=== PATIENT | male | born 1955 | race Caucasian/White ===

== ENCOUNTER 2016-05-01 11:40 | Inpatient (IN) | payer OTHER ==
[~2016-05-01] VITALS: Ht 182.9 cm; Wt 63.6 kg
[~2016-05-01 11:40] MED LIST: AMOX875T PO
[2016-05-01 11:43] VITALS: BP 168/133; PULSE 88; RESP 18; TEMP 98.1; O2SAT 99
[2016-05-01] MEDS ORDERED: DEXAMETHASONE SOD PHOS 4 MG/ML VIAL IV PUSH ONE (12:15)
[2016-05-01] MEDS ORDERED: SODIUM CHLORID 0.9% 500 ML INJ 500 ML IV ONE (12:15)
[2016-05-01 12:31] LABS: AUTOMATED NEUTROPHIL # 5.6 TH/MM3 (1.8-7.7); BASOPHIL # 0.1 TH/MM3 (0-0.2); BASOPHIL % 1.1 % (0.0-2.0); EOSINOPHIL # 0.5 TH/MM3 (0-0.4); EOSINOPHIL % 5.9 % (0.0-4.0); HEMATOCRIT 42.1 % (39.0-51.0); HEMO FLAGS DIFF FINAL; LYMPH % 24.8 % (9.0-44.0); LYMPHOCYTE # 2.3 TH/MM3 (1.0-4.8); MEAN CELL VOLUME 90.7 FL (80.0-100.0); MEAN CORPUSCULAR HEMOGLOBIN 30.9 PG (27.0-34.0); MEAN CORPUSCULAR HGB CONC 34.1 % (32.0-36.0); MONO % 7.1 % (0.0-8.0); NEUT % 61.1 % (16.0-70.0); PLATELET COUNT 312 TH/MM3 (150-450); RED BLOOD COUNT 4.65 MIL/MM3 (4.50-5.90); RED CELL DISTRIBUTION WIDTH 12.4 % (11.6-17.2); WHITE BLOOD COUNT 9.1 TH/MM3 (4.0-11.0)
[2016-05-01 12:40] LABS: POTASSIUM 4.1 MEQ/L (3.5-5.1)
--- NOTE | 2016-05-01 12:41 | PD ---
HPI Chief Complaint: ENT Complaint Time Seen by Provider: 11:57 Travel History International Travel<30 days: No Contact w/Intl Traveler<30days: No Traveled to known affect area: No History of Present Illness HPI The patient is a 61-year-old male who presents emergency department for increasing hoarseness as well as pain of the right aspect of the neck that radiates to the right ear. The patient states his symptoms been ongoing for several months and have been progressing. The patient states he was evaluated in the emergency department in January was advised to follow-up with ear nose and throat physician, however, the patient has not followed up with ENT. The patient states he does not have insurance or money to follow-up with an ENT physician. The patient does smoke, was smoking one pack of cigarettes per day, now states he is smoking one third pack of cigarettes per day. He does note his hoarseness has progressively been worsening. The pain is located in the right aspect of the neck, sharp, feels like "stabbing in my ear ", and radiates to the ear. He denies any fever, chills, sweats, but does have mild pain with swallowing. He denies any significant weight loss. Symptoms are moderate, no known alleviating or exacerbating factors. PFSH Past Medical History Hx Anticoagulant Therapy: No COPD: Yes Diabetes: No Diminished Hearing: No Respiratory: Yes (COPD) Tetanus Vaccination: Unknown Influenza Vaccination: No Past Surgical History Tonsillectomy: Yes Social History Alcohol Use: No Tobacco Use: Yes (1 pack every 3 days) Substance Use: No Allergies-Medications (Allergen,Severity, Reaction): Coded Allergies: No Known Allergies (Unverified , 05/01/16) Reported Meds & Prescriptions Reported Meds & Active Scripts Active Review of Systems Except as stated in HPI: all other systems reviewed are Neg General / Constitutional: No: Fever, Weight Loss HENT: Positive: Sore Throat, Neck Pain, Earache, Other (as noted in history of present illness) Cardiovascular: No: Chest Pain or Discomfort Respiratory: No: Shortness of Breath Gastrointestinal: No: Nausea, Vomiting, Abdominal Pain Neurologic: No: Dizziness Physical Exam Narrative GENERAL: Awake, alert, pleasant 61-year-old male who appears his stated age and is in no acute respiratory distress. SKIN: Warm and dry. HEAD: Atraumatic. Normocephalic. EYES: No injection or drainage.. ENT: No nasal bleeding or discharge. Oropharynx reveals cobblestoning but no exudate. Uvula is midline. No visible or palpable mass under the tongue. No dentition noted. TMs are translucent. EACs are clear.. NECK: Trachea midline. No JVD. Right cervical lymph node mobile slightly tender. CARDIOVASCULAR: Regular rate and rhythm. No murmur appreciated. RESPIRATORY: No accessory muscle use. Clear to auscultation. Breath sounds equal bilaterally. GASTROINTESTINAL: Abdomen soft, non-tender, nondistended. No rebound tenderness. MUSCULOSKELETAL: No obvious deformities. No clubbing. No cyanosis. No edema. NEUROLOGICAL: Awake and alert. No obvious cranial nerve deficits. Motor grossly within normal limits. Normal speech. PSYCHIATRIC: Appropriate mood and affect; insight and judgment normal. Data Data Last Documented VS Vital Signs Date Time Temp Pulse Resp B/P Pulse Ox O2 Delivery O2 Flow Rate FiO2 05/01/16 14:18 70 20 133/83 100 Room Air 05/01/16 11:43 98.1 Orders Complete Blood Count With Diff (05/01/16 12:08) Basic Metabolic Panel (Bmp) (05/01/16 12:08) Ct Soft Tiss Neck W Iv Cont (05/01/16 ) Dexamethasone Inj (Decadron Inj) (05/01/16 12:15) Sodium Chlorid 0.9% 500 Ml Inj (Ns 500 M (05/01/16 12:15) Iohexol 350 Inj (Omnipaque 350 Inj) (05/01/16 14:05) Admit Order (Ed Use Only) (05/01/16 14:57) Consult Ent (05/01/16 ) Consult General Surgery (05/01/16 ) Labs Laboratory Tests Test 05/01/16 12:25 White Blood Count 9.1 TH/MM3 Red Blood Count 4.65 MIL/MM3 Hemoglobin 14.4 GM/DL Hematocrit 42.1 % Mean Corpuscular Volume 90.7 FL Mean Corpuscular Hemoglobin 30.9 PG Mean Corpuscular Hemoglobin 34.1 % Concent Red Cell Distribution Width 12.4 % Platelet Count 312 TH/MM3 Mean Platelet Volume 6.8 FL Neutrophils (%) (Auto) 61.1 % Lymphocytes (%) (Auto) 24.8 % Monocytes (%) (Auto) 7.1 % Eosinophils (%) (Auto) 5.9 % Basophils (%) (Auto) 1.1 % Neutrophils # (Auto) 5.6 TH/MM3 Lymphocytes # (Auto) 2.3 TH/MM3 Monocytes # (Auto) 0.6 TH/MM3 Eosinophils # (Auto) 0.5 TH/MM3 Basophils # (Auto) 0.1 TH/MM3 CBC Comment DIFF FINAL Differential Comment Sodium Level 139 MEQ/L Potassium Level 4.1 MEQ/L Chloride Level 104 MEQ/L Carbon Dioxide Level 29.3 MEQ/L Anion Gap 6 MEQ/L Blood Urea Nitrogen 9 MG/DL Creatinine 0.64 MG/DL Estimat Glomerular Filtration 128 ML/MIN Rate Random Glucose 97 MG/DL Calcium Level 8.5 MG/DL [facility] Medical Decision Making Medical Screen Exam Complete: Yes Emergency Medical Condition: Yes Medical Record Reviewed: Yes Interpretation(s) Laboratory Tests Test 05/01/16 12:25 White Blood Count 9.1 TH/MM3 Red Blood Count 4.65 MIL/MM3 Hemoglobin 14.4 GM/DL Hematocrit 42.1 % Mean Corpuscular Volume 90.7 FL Mean Corpuscular Hemoglobin 30.9 PG Mean Corpuscular Hemoglobin 34.1 % Concent Red Cell Distribution Width 12.4 % Platelet Count 312 TH/MM3 Mean Platelet Volume 6.8 FL Neutrophils (%) (Auto) 61.1 % Lymphocytes (%) (Auto) 24.8 % Monocytes (%) (Auto) 7.1 % Eosinophils (%) (Auto) 5.9 % Basophils (%) (Auto) 1.1 % Neutrophils # (Auto) 5.6 TH/MM3 Lymphocytes # (Auto) 2.3 TH/MM3 Monocytes # (Auto) 0.6 TH/MM3 Eosinophils # (Auto) 0.5 TH/MM3 Basophils # (Auto) 0.1 TH/MM3 CBC Comment DIFF FINAL Differential Comment Sodium Level 139 MEQ/L Potassium Level 4.1 MEQ/L Chloride Level 104 MEQ/L Carbon Dioxide Level 29.3 MEQ/L Anion Gap 6 MEQ/L Blood Urea Nitrogen 9 MG/DL Creatinine 0.64 MG/DL Estimat Glomerular Filtration 128 ML/MIN Rate Random Glucose 97 MG/DL Calcium Level 8.5 MG/DL CT soft tissue neck reveals large mass involving the larynx measured 3.5 x 2.0 cm causing significant compromise to the airway. No adenopathy observed. Malignancy is felt most likely. Severe emphysematous changes. Areas of probable scarring involving the right lung apex. This is nodular in appearance and one area that is partially visualized. Suggest CT of the thorax to further evaluate. Last Impressions Neck CT 05/01/16 0000 Signed Impressions: Service Date/Time: April 13:51 - CONCLUSION: 1. Large mass involving the larynx measuring 3.5 x 2.0 cm causing significant compromise to the airway. No adenopathy observed. Malignancy is felt most likely. 2. Severe emphysematous changes. 3. Areas of probable scarring involving the right lung apex. This is nodular in appearance in one area that is partially visualized. I suggest a CT of the thorax to further evaluate. Fabian Blackwood Jr., MD Differential Diagnosis Differential diagnosis includes pharyngitis, laryngitis, oropharyngeal cancer, oropharyngeal mass, lymphadenitis, eustachian tube dysfunction. Narrative Course IV was established, labs were drawn and sent, and the patient was placed on cardiac telemetry monitoring and continuous pulse oximetry monitoring. CT soft tissue of the neck with IV contrast was ordered. Labs are unremarkable. CT soft tissue neck reveals large mass involving the larynx measuring 3.5 x 2.0 cm causing significant compromise to the airway. No adenopathy observed. Malignancy is felt most likely. The mass measures 3.5 x 2.0 centimeters and its epicenter is to the right of midline just above the cords generating significant narrowing of the lumen of the airway. Therefore, the on-call ENT physician was paged. The patient will need admission, ENT consultation, and oncology consultation. I discussed the patient with Dr. Kilgore who reviewed the CT, states the patient will need a tracheostomy, therefore, recommends consult [facility] general surgery. CT does state there is airway compromise, the patient is sitting up right, no obvious stridor, however, we'll place in ICU until evaluated by surgery. The on-call general surgeon, Dr. Palafox, was paged. I discussed the patient with Dr. Palafox who requests that he be paged when the patient arrives to [facility], upon bed availability. Physician Communication Physician Communication The on-call ENT physician was paged at 2:30 PM. I discussed the patient with Dr. Carbajal who agrees with admission, the patient will be admitted to the ICU until evaluated by general surgery. Diagnosis Primary Impression: Laryngeal mass Admitting Information Admitting Physician Requests: Admit Condition: Stable Tor Frye MD May 01, 2016 12:41
[2016-05-01 12:42] LABS: BICARBONATE 29.3 MEQ/L (21.0-32.0)
[2016-05-01] MEDS ORDERED: IOHEXOL 350 MG/ML 10 ML VIAL (for RAD DIAG) IV ONE (14:05)
[2016-05-01 14:18] VITALS: BP 133/83; PULSE 70; RESP 20; O2SAT 100
--- NOTE | 2016-05-01 14:27 | RADHPO ---
EXAM DATE/TIME: 05/01/2016 13:51 [facility] COMPARISON: No previous studies available for comparison. INDICATIONS : Right throat pain and increased hoarseness over past 1 1/2 months. IV CONTRAST: 65 cc Omnipaque 350 (iohexol) IV RADIATION DOSE: 14.17 CTDIvol (mGy) MEDICAL HISTORY : Chronic obstructive pulmonary disease. SURGICAL HISTORY : Tonsillectomy. ENCOUNTER: Initial ACUITY: 1 month PAIN SCALE: 7/10 LOCATION: Right neck TECHNIQUE: Volumetric scanning of the neck was performed. Using automated exposure control and adjustment of th e mA and/or kV according to patient size, radiation dose was kept as low as reasonably achievable to obtain optimal diagnostic quality images. FINDINGS: A large heterogeneous mass is seen involving the larynx. This measures 3.5 x 2.0 cm and its epicenter is to the right of midline just above the cords. This generates significant narrowing of the lumen o f the airway. I appreciate no adenopathy. No destruction of the adjacent thyroid cartilage. Calcified plaque involving both carotid arteries. Pronounced emphysematous changes within the visualized lung apices. Areas of curvilinear density in some nodularity involving the right lung apex. CONCLUSION: 1. Large mass involving the larynx measuring 3.5 x 2.0 cm causing significant compromise to the airwa y. No adenopathy observed. Malignancy is felt most likely. 2. Severe emphysematous changes. 3. Areas of probable scarring involving the right lung apex. This is nodular in appearance in one are a that is partially visualized. I suggest a CT of the thorax to further evaluate. Fabian Blackwood Jr., MD on May 01, 2016 at 14:16 Board Certified Radiologist. This report was verified electronically.
[2016-05-01] MEDS ORDERED: NALOXONE HCL 0.4 MG/ML AMP IV PRN (15:15)
[2016-05-01] MEDS ORDERED: SODIUM CHLORIDE 0.9% FLUSH 5 ML FLUSH FLUSH PRN (15:15)
[2016-05-01] MEDS: D5-1/2 NS + KCL 20 MEQ INJ 1,000 ML IV SCH ×3 (15:55→21:50)
[2016-05-01] MEDS ORDERED: NICOTINE 21 MG/24 HR PATCH TD ONE (17:45)
[2016-05-01 18:25] VITALS: BP 146/87; PULSE 88; PULSE 89; RESP 19; TEMP 98.4; O2SAT 97
[2016-05-01 20:00] VITALS: BP 131/94; PULSE 81; RESP 15; TEMP 98.2; O2SAT 94
[2016-05-01] MEDS: SODIUM CHLORIDE 0.9% FLUSH 5 ML FLUSH FLUSH SCH (21:00)
[2016-05-01 22:00] VITALS: PULSE 85
[2016-05-02] VITALS (13 sets, daily range): BP systolic 123–144; BP diastolic 70–79; PULSE 70–94; RESP 15–18; TEMP 97.9–98.7; O2SAT 93–96
[2016-05-02 05:03] LABS: BICARBONATE 25.8 MEQ/L (21.0-32.0); POTASSIUM 4.1 MEQ/L (3.5-5.1)
[2016-05-02] MEDS: D5-1/2 NS + KCL 20 MEQ INJ 1,000 ML IV SCH ×2 (05:40→07:56)
[2016-05-02] MEDS: SODIUM CHLORIDE 0.9% FLUSH 5 ML FLUSH FLUSH SCH ×2 (07:57→22:57)
--- NOTE | 2016-05-02 08:24 | HHI.HP ---
[facility] Primary Care Physician No Primary Care Physician Admission Diagnosis laryngeal mass with airway compromise Diagnoses: (1) Laryngeal mass (2) COPD (chronic obstructive pulmonary disease) (3) Tobacco abuse Chief Complaint: Laryngeal mass with airway compromise Travel History International Travel<30 Days: No Contact w/Intl Traveler <30 Da: No Traveled to Known Affected Are: No History of Present Illness The patient is a 61-year-old male who presented to the emergency department yesterday with complaint of sore throat. He has been having some pain in his neck and throat since January. He was seen in the emergency department at the end of January and diagnosed with pharyngitis. He was treated with amoxicillin at that time and instructed to follow-up with ENT. It was about the end of January that he developed hoarseness, which has persisted. The patient states that he has continued to have pain on the side of his neck that eventually radiated up to his ear. Yesterday the pain had worsened to the point where it was intolerable and he went to the emergency department. He denies shortness of breath or chest pain. Denies fever, chills, night sweats. Throat pain is improved today. Review of Systems Constitutional: DENIES: Fever, Chills, Night Sweats Eyes: DENIES: Blurred vision, Vision loss Ears, nose, mouth, throat: COMPLAINS OF: Throat pain, Hoarseness, DENIES: Hearing loss Respiratory: COMPLAINS OF: Cough, Sputum production, DENIES: Wheezing, Shortness of breath Cardiovascular: DENIES: Chest pain, Palpitations, Dyspnea on Exertion, Lower Extremity Edema Gastrointestinal: DENIES: Abdominal pain, Constipation, Diarrhea, Nausea, Vomiting Genitourinary: DENIES: Urinary frequency, Urinary incontinence, Urgency, Hematuria, Dysuria, Nocturia Musculoskeletal: DENIES: Joint pain, Muscle aches Integumentary: DENIES: Pruritus, Rash Hematologic/lymphatic: DENIES: Bruising Neurologic: DENIES: Headache Past Family Social History Past Medical History COPD Tobacco abuse Past Surgical History Tonsillectomy Reported Medications None Allergies: Coded Allergies: No Known Allergies (Unverified , 05/01/16) Family History Mother had heart disease. Social History Smokes one pack of cigarettes every 3 days. Had smoked up to 2 packs per day for 40 years previously. Denies alcohol or illicit drug use. Physical Exam Vital Signs Vital Signs Date Time Temp Pulse Resp B/P Pulse Ox O2 Delivery O2 Flow Rate FiO2 05/02/16 08:00 84 05/02/16 08:00 98.7 80 16 136/73 96 05/02/16 08:00 93 100 05/02/16 06:00 70 05/02/16 04:00 78 05/02/16 04:00 98.0 78 15 134/79 95 05/02/16 02:00 83 05/02/16 00:00 76 05/02/16 00:00 98.3 80 15 131/79 94 05/01/16 22:00 85 05/01/16 20:00 81 05/01/16 20:00 98.2 81 15 131/94 94 05/01/16 18:25 98.4 89 19 146/87 97 05/01/16 18:25 97 Room Air 05/01/16 18:25 88 05/01/16 14:18 70 20 133/83 100 Room Air 05/01/16 12:01 20 05/01/16 11:43 98.1 88 18 168/133 99 Physical Exam GENERAL: Well-nourished, well-developed male in no acute distress. HEENT: Normocephalic, atraumatic. Pupils equal, round and reactive. Extraocular movements intact. No scleral icterus. No injection or drainage. Oropharynx is clear. Mucous membranes are moist. CARDIOVASCULAR: Regular rate and rhythm without murmurs, gallops, or rubs. RESPIRATORY: Clear to auscultation. No wheezes, rales, or rhonchi. Breathing is non-labored. GASTROINTESTINAL: Abdomen soft, non-tender, nondistended. EXTREMITIES: No lower extremity edema. No calf tenderness. SCDs. PSYCH: Alert and oriented x 3. Laboratory Laboratory Tests Test 05/01/16 05/01/16 05/02/16 12:25 19:50 03:34 White Blood Count 9.1 Red Blood Count 4.65 Hemoglobin 14.4 Hematocrit 42.1 Mean Corpuscular Volume 90.7 Mean Corpuscular Hemoglobin 30.9 Mean Corpuscular Hemoglobin 34.1 Concent Red Cell Distribution Width 12.4 Platelet Count 312 Mean Platelet Volume 6.8 Neutrophils (%) (Auto) 61.1 Lymphocytes (%) (Auto) 24.8 Monocytes (%) (Auto) 7.1 Eosinophils (%) (Auto) 5.9 Basophils (%) (Auto) 1.1 Neutrophils # (Auto) 5.6 Lymphocytes # (Auto) 2.3 Monocytes # (Auto) 0.6 Eosinophils # (Auto) 0.5 Basophils # (Auto) 0.1 CBC Comment DIFF FINAL Differential Comment Sodium Level 139 137 Potassium Level 4.1 4.1 Chloride Level 104 104 Carbon Dioxide Level 29.3 25.8 Anion Gap 6 7 Blood Urea Nitrogen 9 7 Creatinine 0.64 0.57 Estimat Glomerular Filtration 128 146 Rate Random Glucose 97 118 Calcium Level 8.5 8.8 Nasal Screen MRSA (PCR) NEGATIVE Result Diagram: 05/01/16 1225 05/02/16 0334 Imaging Last Impressions Neck CT 05/01/16 0000 Signed Impressions: Service Date/Time: April 13:51 - CONCLUSION: 1. Large mass involving the larynx measuring 3.5 x 2.0 cm causing significant compromise to the airway. No adenopathy observed. Malignancy is felt most likely. 2. Severe emphysematous changes. 3. Areas of probable scarring involving the right lung apex. This is nodular in appearance in one area that is partially visualized. I suggest a CT of the thorax to further evaluate. Fabian Blackwood Jr., MD Assessment and Plan Assessment and Plan 1. Laryngeal mass with airway compromise: Appreciate oncology recommendations. Discussed with Dr. Lofton. General surgery consultation is pending. The patient has been evaluated by ENT and reportedly a bedside laryngoscopy was done. Awaiting official documentation from ENT, but the report given from the nurse indicated that the airway compromise is less severe than initially thought based on imaging. ENT reportedly planning for biopsy of the mass on Thursday. 2. COPD: Continue supplemental oxygen. Bronchodilators as needed. 3. Tobacco abuse: Counseled to quit smoking. 4. DVT prophylaxis: JEREMY Romeo. Avoid chemical prophylaxis in anticipation of surgical intervention. Ivan Clayton MD May 02, 2016 08:24
--- NOTE | 2016-05-02 09:49 | MB ---
cc: DONAL HOOVER MD HEMATOLOGY/ONCOLOGY CONSULTATION NOTE DATE OF CONSULTATION 05/02/2016 REASON FOR CONSULTATION Large laryngeal mass noted on imaging studies. Findings are concerning for a primary malignancy of the larynx. CHIEF COMPLAINT Mr. Avila reports having had a 7-month history of progressive pain/soreness of the throat. He reports a two-month history of progressive difficulty breathing on inhalation. HISTORY OF PRESENT ILLNESS Mr. Fish is a 61-year-old male with a greater than 60 pack-year history of smoking. He reports smoking about a pack and half a day for the past 40 years. He also reports formerly being a heavy drinker. The patient reports noting pain along the right side of his Avinash's apple and throat starting in the summer of 2015. He reports presenting to various emergency departments in the city and was prescribed various courses of oral antibiotics which seemed to help transiently, but his symptoms would recur. Over the past few months, his voice has been increasingly hoarse. He denies having difficulty swallowing or hemoptysis or hematemesis. Additionally, the patient reports having lost some weight over the past six months, but nothing dramatic. He came into the emergency department last night with progressive symptoms and underwent a CT scan of the neck with intravenous contrast. Radiographic findings revealed a large mass measuring 3.5 x 2 cm causing significant compromise of the airway. No malignant lymphadenopathy was appreciated. Severe emphysematous changes were noted bilaterally. Te patient is presently awaiting ENT surgery evaluation and he is also awaiting evaluation by general surgery for possible tracheostomy creation. PAST MEDICAL HISTORY 1. Personal history of tobaccoism and alcoholism. 2. He denies any other formal medical diagnoses although he admits not seeing a primary care physician regularly. PAST SURGICAL HISTORY Denies any invasive surgical procedures. FAMILY HISTORY Parents are both . He denies oncologic diagnoses in the family. SOCIAL HISTORY He is single. He lives at home alone. He has no children of his own. He tells me he has multiple friends who are willing to help. 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 ALLERGIES NO KNOWN DRUG ALLERGIES. INPATIENT MEDICATIONS 1. DuoNebs one ampule every two hours as needed for difficulty breathing 2. Zofran 4 mg IV q6h 3. Morphine sulfate 2 mg IV q3h as needed for pain 4. IV fluids containing normal saline, potassium at 100 cc/hour. REVIEW OF SYSTEMS A 13-point review of systems is obtained, the pertinent positives have been summarized in past medical history. Below I am documenting some of the pertinent negatives and positives: Fatigue, denies weight loss, reports headaches, reports exertional dyspnea, reports pain in the throat. Denies cough or hemoptysis, denies chest pain, PND, orthopnea. Denies nausea, vomiting, diarrhea hematochezia, or melena. : No complaints. MUSCULOSKELETAL: No complaints. PHYSICAL EXAMINATION VITAL SIGNS: Temperature 98.7 degrees Fahrenheit, heart rate 80 beats minute, respiratory rate 16, blood pressure 136/73, O2 sats are 94% on room air. GENERAL PHYSICAL APPEARANCE: Mr. Avila is a middle-aged male, he is sitting up in bed. He appears to be in no acute distress and in particular is in no acute respiratory distress. He speaks to me in full sentences. HEENT: Head atraumatic, normocephalic, conjunctive are not pale, sclerae are anicteric, EOMI, PERRLA, oral exam no pharyngeal erythema. He has a 1 cm freely movable round level 2 right-sided cervical lymph node. No masses are appreciable. I do not auscultate stridor on direct auscultation of his larynx. NECK: No palpable cervical or supraclavicular lymphadenopathy. RESPIRATORY: Prolonged expiratory phase, no added breath sounds. CARDIOVASCULAR: Regular rate and rhythm, S1-S2. No obvious murmurs, rubs or gallops. ABDOMEN: Thin belly, soft and nontender, nondistended, no palpable organ enlargement. EXTREMITIES: Lower extremities, no pretibial edema. No calf tenderness. SURGICAL BRACE MAKER: No focal sensory or motor deficits appreciated. LABORATORY FINDINGS Blood work dated 05/01/2016: WBC count 9.1, hemoglobin 14.4 gm/dl, hematocrit 42%, platelet count 312, absolute neutrophil count 5.6. Chemistries: Sodium 137, potassium 4.1, chloride 104, bicarb 26, BUN 7, creatinine 0.75, EGFR 146, random glucose 118, calcium 8.8. IMAGING STUDIES 1. CT scan of the neck dated 05/01/2016: Large mass involving the larynx measuring 3.5 x 2 cm causing significant compromise to the airway. No adenopathy is observed. Malignancy is felt to be the most likely explanation. 2. Severe emphysematous changes. 3. Area of probable scarring involving the right lung apex. ASSESSMENT Ms. Avila is a 61-year-old male with an extensive past history of tobaccoism (greater than 60 pack-year history) and also a previous history of heavy alcohol consumption. The patient presents to the hospital with symptoms of the progressive pain in the larynx associated with hoarseness of the voice which has been ongoing for the past seven months or so. He presented to the emergency department and underwent imaging studies including a CT scan of the neck which revealed a mass involving the larynx. There was significant airway compromise appreciated. The patient has already been seen by our ENT surgeon's and flexible laryngoscopy was performed at bedside. An exophytic mass centered along the left false vocal cord was appreciated, there appear to be submucosal extension as well. The airway appear to be patent. 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 Unfortunately his airway is at risk for obstruction either now or once we start treatment which will include concurrent chemoradiotherapy. I think it would be most prudent to pursue a tracheostomy before we initiate treatment or in fact even try to biopsy his primary tumor in the larynx. I did speak to Dr. Kilgore who concurs with the assessment of preventive placement of a tracheostomy even though his airway at present seems to be patent. The patient will require a tissue diagnosis with a biopsy of the laryngeal mass. Dr. Kilgore is attempting to arrange this with our hospital's operating room. I will order staging scans including CT scan of the chest and abdomen to rule out metastatic disease. I will follow along with you. Thank you very much for this consult. MD FIFI Mcadams/ECTOR /9:08 AM /9:34 AM
--- NOTE | 2016-05-02 10:15 | MB ---
cc: DANIEL ORR MD DATE OF CONSULTATION: 05/02/2016 CHIEF COMPLAINT Severe hoarseness. HISTORY OF PRESENT ILLNESS This is a 61-year-old male who presented to the emergency room last night with worsening shortness of breath and hoarseness. The patient reports this has been going on for several months and has been slowly getting worse and has just continued to persist. He is now having some radiation up to his ear on the right side and causing significant pain. He feels that his breathing has improved since yesterday but he is severely hoarse and is having odynophagia but is not necessarily having dysphagia as he is asking me to eat currently. PAST MEDICAL HISTORY COPD as well as significant tobacco abuse history. PAST SURGICAL HISTORY Previous tonsillectomy. ALLERGIES He has no known drug allergies. SOCIAL HISTORY He smokes currently about 10 cigarettes a day, but has previously smoked more than two packs per day for more than 40 years. PHYSICAL EXAMINATION GENERAL: The patient is alert and oriented x3 in no acute distress. HEENT: Ears are clear. Nose is within normal limits. Oral cavity and oropharynx reveal moist mucosa. The tongue is without lesions and is freely mobile. A flexible laryngoscopy performed at bedside today shows the oropharynx without lesions or masses. The epiglottis shows no lesions or masses to it. The right side of the larynx shows an exophytic mass involving the arytenoids that looks more submucosal, the false vocal cord that looks more submucosa with the entire free edge of the right vocal cord obliterated with an exophytic mass. I am able to see the left vocal cord. It is without an obvious lesion. There is an airway. I am able to see his subglottis through the cords. He has currently an adequate airway. He has no stridor and no stertor. NECK: No palpable lymphadenopathy. HEART: Regular rate and rhythm. LUNGS: Clear to auscultation. IMAGING CT scan reviewed. His CT scan looks much more ominous than his actual exam. There is significant mass effect of a 3.5 cm mass causing compromise of the airway with no lymphadenopathy. 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 At this time he does have some airway compromise, however, it does not seem to be as ominous as it appears on the CAT scan. He is without stridor or stertor. I do believe for safety purposes for treatment options he is going to require a tracheostomy but I do not think he needs this emergently and can be performed by general surgery as an elective tracheostomy. I believe radiation will cause significant edema and he would require an emergent tracheostomy during treatment. At this time my recommendation is for him to have evaluation by general surgery for possible tracheostomy. We will plan Direct Laryngoscopy with biopsy for Thursday. I also think due to the fact that we are relatively sure this is a malignant process he will need a PET/CT scan. Due to his funding status he would benefit from some social work intervention to start helping him get some benefit set up as this will be a long course of treatment. Thank you for this consultation. Daniel Orr AT/BT /9:37 AM /10:02 AM MTDJaun
--- NOTE | 2016-05-02 16:07 | PD.CONS ---
HPI Service General surgery Consult Requested By Dr. Frye Reason for Consult Tracheostomy placement for airway compromise Primary Care Physician No Primary Care Physician History of Present Illness This is a 61-year-old male who came to the emergency department in [place] due to increased pain in his neck that radiated to his right ear. The patient noticed he had increased hoarseness in his voice at the beginning of February and was seen at the [facility] ED and diagnosed with laryngitis. The patient noticed a lump in his right neck about 6 weeks ago. He states he is always mildly short of breath but does not stop him from activities of daily living. The patient has not had any weight loss. The patient has a normal appetite. A Gen. surgery consult was requested for tracheostomy placement due to airway compromise. Review of Systems Constitutional: DENIES: Fatigue, Fever, Weight gain, Weight loss Endocrine: DENIES: Polydipsia, Polyuria, Polyphagia Eyes: DENIES: Eye inflammation, Eye pain Ears, nose, mouth, throat: COMPLAINS OF: Throat pain, Hoarseness, Ear Pain ( right), DENIES: Hearing loss, Vertigo Respiratory: DENIES: Apneas, Cough, Snoring Cardiovascular: DENIES: Chest pain, Palpitations, Syncope Gastrointestinal: DENIES: Constipation, Diarrhea Genitourinary: DENIES: Urinary incontinence, Urgency, Hematuria Musculoskeletal: DENIES: Joint pain Integumentary: DENIES: Abnormal pigmentation Hematologic/lymphatic: DENIES: Bruising Immunologic/allergic: DENIES: Eczema Neurologic: DENIES: Abnormal gait Psychiatric: DENIES: Mood changes, Depression Past Family Social History Past Medical History COPD Past Surgical History Tonsillectomy Reported Medications None Allergies: Coded Allergies: No Known Allergies (Unverified , 05/01/16) Active Ordered Medications Current Medications Medications (Trade) Dose Ordered Sig/Darryl Route Start Time Stop Time Status Last Admin (D5-1 NS + KCl 20 Meq Inj) 1,000 ml @ 100 mls/hr Q10H IV 05/01/16 15:10 05/02/16 05:40 (NS Flush) 2 ml UNSCH PRN FLUSH 05/01/16 15:15 (NS Flush) 2 ml BID FLUSH 05/01/16 21:00 (Zofran Inj) 4 mg Q6H PRN IVP 05/01/16 15:15 (Morphine Inj) 2 mg Q3H PRN IV 05/01/16 15:15 (Narcan Inj) 0.4 mg UNSCH PRN IV 05/01/16 15:15 Family History Noncontributory Social History Smoking-half a pack every 3 days EtOH-social; not a daily drinker Illicit drugs-denies Physical Exam Vital Signs Vital Signs Date Time Temp Pulse Resp B/P Pulse Ox O2 Delivery O2 Flow Rate FiO2 05/02/16 14:00 76 05/02/16 12:00 79 05/02/16 12:00 98.2 75 18 131/76 94 05/02/16 10:00 75 05/02/16 08:00 84 05/02/16 08:00 98.7 80 16 136/73 96 05/02/16 08:00 93 100 05/02/16 06:00 70 05/02/16 04:00 78 05/02/16 04:00 98.0 78 15 134/79 95 05/02/16 02:00 83 05/02/16 00:00 76 05/02/16 00:00 98.3 80 15 131/79 94 05/01/16 22:00 85 05/01/16 20:00 81 05/01/16 20:00 98.2 81 15 131/94 94 05/01/16 18:25 98.4 89 19 146/87 97 05/01/16 18:25 97 Room Air 05/01/16 18:25 88 Physical Exam GENERAL: Pleasant gentleman sitting up in bed on laptop computer. SKIN: Warm and dry. HEAD: Atraumatic. Normocephalic. EYES: Pupils equal and round. No scleral icterus. No injection or drainage. ENT: No nasal bleeding or discharge. Mucous membranes pink and moist. RIGHT sided neck mass. NECK: Trachea midline. CARDIOVASCULAR: Regular rate and rhythm. RESPIRATORY: No accessory muscle use. Clear to auscultation. Breath sounds diminished bilaterally. GASTROINTESTINAL: Abdomen soft, non-tender, nondistended. . MUSCULOSKELETAL: Extremities without clubbing, cyanosis, or edema. No obvious deformities. NEUROLOGICAL: Awake and alert. No obvious cranial nerve deficits. Motor grossly within normal limits. Five out of 5 muscle strength in the arms and legs. Speech is hoarse.. PSYCHIATRIC: Appropriate mood and affect; insight and judgment normal. Laboratory Laboratory Tests Test 05/01/16 05/02/16 19:50 03:34 Nasal Screen MRSA (PCR) NEGATIVE Sodium Level 137 Potassium Level 4.1 Chloride Level 104 Carbon Dioxide Level 25.8 Anion Gap 7 Blood Urea Nitrogen 7 Creatinine 0.57 Estimat Glomerular Filtration 146 Rate Random Glucose 118 Calcium Level 8.8 Result Diagram: 05/01/16 1225 05/02/16 0334 Imaging Last [address] 05/01/16 0000 Signed Impressions: Service Date/Time: April 13:51 - CONCLUSION: 1. Large mass involving the larynx measuring 3.5 x 2.0 cm causing significant compromise to the airway. No adenopathy observed. Malignancy is felt most likely. 2. Severe emphysematous changes. 3. Areas of probable scarring involving the right lung apex. This is nodular in appearance in one area that is partially visualized. I suggest a CT of the thorax to further evaluate. Fabian Blackwood Jr., MD Assessment and Plan Assessment and Plan This is a 61 year old male with a RIGHT sided neck mass in need of elective tracheostomy placement. -Patient on RA and oxygen saturations are 100%---no clinical evidence of impending airway compromise -ENT planning for scope and biopsy on Thursday -Regular diet -Plan to place trach in OR on Thursday after Dr. Kilgore Attending Note - Dr. Call Please see my dictation Discussed tracheostomy procedure with patient; risks, benefits, consequences, alternatives and convalescence discussed with him; he vocalizes understanding and agrees to proceed. Fenestrated trach may be placed in about 10-14 days so pt. may speak. The exam, history, and the medical decision-making described in the above note were completed with the assistance of the mid-level provider. I reviewed and agree with the findings presented. I attest that I had a [id number] encounter with the patient on the same day, and personally performed and documented my assessment and findings in the medical record. Ebonie Wolf May 02, 2016 16:07 Isael Call MD May 08, 2016 18:16
[2016-05-02] MEDS: MORPHINE SULFATE 4 MG/ML INJ IV PRN (20:07)
--- NOTE | 2016-05-02 22:13 | MB ---
cc: TIFFANIE EVANS M.D. DATE OF CONSULTATION: 05/02/2016 REASON FOR CONSULTATION Tracheostomy placement for patient to undergo chemotherapy. HISTORY OF PRESENT ILLNESS The patient is a 61-year-old male who was seen in the emergency department in [place] and had hoarseness in his voice at the beginning of February. The patient noted a lump in his neck about six weeks ago. REVIEW OF SYSTEMS Negative except for throat pain, hoarseness, right ear pain. Otherwise review of systems is negative. Please see Ebonie Luciano's consultation visit for further details. PHYSICAL EXAMINATION GENERAL: Reveals a male in no acute distress. VITAL SIGNS: BP 123/76, pulse 80, respirations 16, temperature 98.1. HEENT: Sclerae anicteric. The patient has hoarseness. NECK: Neck is supple without mass effect in the midline. I do not appreciate any significant adenopathy in the mid and lower neck. There is no jugular venous distension. CHEST: Chest is clear to auscultation. CARDIAC: Reveals regular rate and rhythm. ABDOMEN: Abdomen is soft. Pulses are intact. IMAGING Neck CT at on 05/01 demonstrated a large heterogeneous mass involving the larynx. LABORATORY VALUES Laboratory values demonstrate WBCs of 9.1, platelets are 312,000, BUN and creatinine are 7 and 0.57. ASSESSMENT Laryngeal mass with biopsy planned for May 05. PLAN Tracheostomy at the same time to allow for a secure airway. I have discussed the risks of surgery with the patient including but not limited to bleeding, infection, tracheostomy dislodgement, innominate artery bleeding with exsanguination, and the inability to speak until a Passy-Gladis valve is placed or a fenestrated trach is added. The patient vocalizes understanding of all of the above and is aware of the benefits, alternatives and convalescence and agrees to proceed. MD TARI Diaz/BJBunny /9:33 PM /10:03 PM
[2016-05-03] VITALS (14 sets, daily range): BP systolic 109–154; BP diastolic 67–84; PULSE 59–87; RESP 15–20; TEMP 98–98.4; O2SAT 93–98
[2016-05-03] MEDS: SODIUM CHLORIDE 0.9% FLUSH 5 ML FLUSH FLUSH SCH ×2 (08:17→21:00)
--- NOTE | 2016-05-03 09:04 | PD.ONC.PN ---
Subjective Subjective Remarks Afebrile overnight. Patient resting comfortably without complaint. He denies pain in neck. He ate dinner last night without difficulty. He is having BM. He denies difficulty breathing. Per nurse, no overnight events. Objective Data Date Time Temp Pulse Resp B/P Pulse Ox O2 Delivery O2 Flow Rate FiO2 05/03/16 08:00 87 05/03/16 08:00 98.0 87 18 109/67 98 05/03/16 06:00 59 05/03/16 04:00 98.0 62 20 115/76 93 05/03/16 04:00 62 05/03/16 02:00 70 05/03/16 00:00 98.0 70 16 124/77 95 05/03/16 00:00 70 05/02/16 22:00 73 05/02/16 20:08 93 21 05/02/16 20:00 97.9 94 18 144/70 95 05/02/16 20:00 94 05/02/16 18:00 82 05/02/16 16:00 77 05/02/16 16:00 98.1 80 16 123/76 96 05/02/16 14:00 76 05/02/16 12:00 79 05/02/16 12:00 98.2 75 18 131/76 94 05/02/16 10:00 75 05/03/16 05/03/16 05/03/16 07:00 15:00 23:00 Intake Total 120 ml Output Total 500 ml Balance -380 ml Result Diagram: 05/01/16 1225 05/02/16 0334 Imaging Studies Last Impressions Neck CT 05/01/16 0000 Signed Impressions: Service Date/Time: April 13:51 - CONCLUSION: 1. Large mass involving the larynx measuring 3.5 x 2.0 cm causing significant compromise to the airway. No adenopathy observed. Malignancy is felt most likely. 2. Severe emphysematous changes. 3. Areas of probable scarring involving the right lung apex. This is nodular in appearance in one area that is partially visualized. I suggest a CT of the thorax to further evaluate. Fabian Blackwood Jr., MD Administered Medications Medications (Trade) Dose Ordered Sig/Darryl Route PRN Reason Start Time Stop Time Status Last Admin Dose Admin Potassium Chloride/Dextrose/ Sod Cl (D5-1/2 NS + KCl 20 Meq Inj) 1,000 ml @ 100 mls/hr Q10H IV 05/01/16 15:10 05/02/16 05:40 IV Flush (NS Flush) 2 ml BID FLUSH 05/01/16 21:00 05/03/16 08:17 Morphine Sulfate (Morphine Inj) 2 mg Q3H PRN IV Pain 3-5; if unable to take PO 05/01/16 15:15 05/02/16 20:07 Objective Remarks GENERAL: Thin, middle aged male, sitting up in bed eating breakfast, watching TV SKIN: Warm and dry. skin is rough and leathery in appearance. +tobacco associated changes HEAD: Normocephalic. EYES: No injection or drainage. NECK: Supple, trachea midline. CARDIOVASCULAR: Regular rate and rhythm RESPIRATORY: Breath sounds equal bilaterally. No accessory muscle use. GASTROINTESTINAL: Abdomen soft, non-tender, nondistended. EXTREMITIES: No cyanosis NEUROLOGICAL: No obvious focal deficit. Awake, alert, and oriented x3. Assessment/Plan Assessment 61y/o male with laryngeal mass, suspected primary malignancy of the larynx. +7-month history of progressive pain/soreness of the throat. two-month history of progressive difficulty breathing on inhalation. +hoarse voice --no difficulty swallowing or hemoptysis or hematemesis. --flexible laryngoscopy at bedside showed exophytic mass centered along the left false vocal cord was appreciated w/ submucosal extension. Plan 1. CT C/A/P today. (for staging) 2. elective tracheostomy + direct laryngoscopy + biopsy Thursday Attending Statement The exam, history, and the medical decision-making described in the above note were completed with the assistance of the mid-level provider. I reviewed and agree with the findings presented. I attest that I had a [id number] encounter with the patient on the same day, and personally performed and documented my assessment and findings in the medical record. Denies dysphagia or SOB. Await elective tracheostomy and biopsy. 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 Radha Hilario May 03, 2016 09:04 Jerry Singer MD May 03, 2016 12:08
--- NOTE | 2016-05-03 11:30 | HHI.PR ---
Subjective Subjective Notes No problems with airway overnight. Going for CT chest this AM Objective Vitals/I&O Vital Signs Date Time Temp Pulse Resp B/P Pulse Ox O2 Delivery O2 Flow Rate FiO2 05/03/16 10:00 79 05/03/16 09:27 95 21 05/03/16 08:00 98.0 18 109/67 05/01/16 18:25 Room Air Radiology Last [address] 05/01/16 0000 Signed Impressions: Service Date/Time: April 13:51 - CONCLUSION: 1. Large mass involving the larynx measuring 3.5 x 2.0 cm causing significant compromise to the airway. No adenopathy observed. Malignancy is felt most likely. 2. Severe emphysematous changes. 3. Areas of probable scarring involving the right lung apex. This is nodular in appearance in one area that is partially visualized. I suggest a CT of the thorax to further evaluate. 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 Plan: Tracheostomy placement Thursday after biopsy completed by Dr. Kilgore. Permit signed. Isael Call MD May 03, 2016 11:29
[2016-05-03] MEDS ORDERED: IOHEXOL 350 MG/ML 10 ML VIAL (for RAD DIAG) IV ONE (11:40)
--- NOTE | 2016-05-03 11:53 | HHI.PR ---
Subjective Remarks Follow-up laryngeal mass. Patient has no complaints at this time. He is still having some pain in the right side of the neck radiating occasionally to the right ear, but states that it seems to be improved today. No dyspnea, dysphagia. Objective Vitals Vital Signs Date Time Temp Pulse Resp B/P Pulse Ox O2 Delivery O2 Flow Rate FiO2 05/03/16 10:00 79 05/03/16 09:27 95 21 05/03/16 08:00 87 05/03/16 08:00 98.0 87 18 109/67 98 05/03/16 06:00 59 05/03/16 04:00 98.0 62 20 115/76 93 05/03/16 04:00 62 05/03/16 02:00 70 05/03/16 00:00 98.0 70 16 124/77 95 05/03/16 00:00 70 05/02/16 22:00 73 05/02/16 20:08 93 21 05/02/16 20:00 97.9 94 18 144/70 95 05/02/16 20:00 94 05/02/16 18:00 82 05/02/16 16:00 77 05/02/16 16:00 98.1 80 16 123/76 96 05/02/16 14:00 76 05/02/16 12:00 79 05/02/16 12:00 98.2 75 18 131/76 94 I/O 05/02/16 05/02/16 05/02/16 05/03/16 05/03/16 05/03/16 07:00 15:00 23:00 07:00 15:00 23:00 Intake Total 1000 ml 1066 ml 480 ml 120 ml Output Total 600 ml 600 ml 0 ml 500 ml Balance 400 ml 466 ml 480 ml -380 ml Intake Oral 200 ml 480 ml 120 ml IV Total 1000 ml 866 ml 0 ml 0 ml Output Urine Total 600 ml 600 ml 500 ml Stool Total 0 ml 0 ml 0 ml # Voids 2 Result Diagram: 05/01/16 1225 05/02/16 0334 Imaging Last Impressions Neck CT 05/01/16 0000 Signed Impressions: Service Date/Time: April 13:51 - CONCLUSION: 1. Large mass involving the larynx measuring 3.5 x 2.0 cm causing significant compromise to the airway. No adenopathy observed. Malignancy is felt most likely. 2. Severe emphysematous changes. 3. Areas of probable scarring involving the right lung apex. This is nodular in appearance in one area that is partially visualized. I suggest a CT of the thorax to further evaluate. Fabian Blackwood Jr., MD Objective Remarks General: No acute distress. Heart: Regular rate and rhythm. No murmur. Lungs: Clear to auscultation bilaterally. No wheezes, rales, or rhonchi. Breathing is nonlabored. Abdomen: Soft, nontender, nondistended. Extremities: No lower extremity edema. No calf tenderness. Psych: Alert and oriented. Urinary Catheter: No Vascular Central Line Catheter: No A/P Problem List: (1) Laryngeal mass ICD Code: J38.7 Status: Acute (2) COPD (chronic obstructive pulmonary disease) ICD Code: J44.9 Status: Chronic (3) Tobacco abuse ICD Code: Z72.0 Status: Chronic Assessment and Plan 1. Laryngeal mass: Likely malignancy. Appreciate oncology, ENT, general surgery recommendations. ENT is planning for biopsy of the mass on Thursday. Elective tracheostomy will be done at that time as the patient will have significant swelling from chemotherapy and radiation therapies. 2. COPD: Continue supplemental oxygen. Bronchodilators as needed. 3. Tobacco abuse: Counseled to quit smoking. 4. DVT prophylaxis: JEREMY Romeo. Avoid chemical prophylaxis in anticipation of surgical intervention. Ivan Clayton MD May 03, 2016 11:53
--- NOTE | 2016-05-03 13:23 | RADRPT ---
EXAM DATE/TIME: 05/03/2016 11:33 [facility] COMPARISON: CT SOFT TISSUE NECK W CONTRAST, May 01, 2016, 13:51. INDICATIONS : Evaluate for metastaic disease. IV CONTRAST: 75 cc Omnipaque 350 (iohexol) IV ; Cumulative dose for multiple exams. RADIATION DOSE: 9.96 CTDIvol (mGy) ; Combined studies - Thorax/Abdomen/Pelvis MEDICAL HISTORY : Chronic obstructive pulmonary disease. Laryngeal mass. SURGICAL HISTORY : Tonsillectomy. ENCOUNTER: Initial ACUITY: 1 day PAIN SCALE: 0/10 LOCATION: Bilateral chest TECHNIQUE: Volumetric scanning of the chest was performed. Using automated exposure control and adjustment of t he mA and/or kV according to patient size, radiation dose was kept as low as reasonably achievable to obtain optimal diagnostic quality images. FINDINGS: Mildly nodular scarring seen of the right lung apex. There is marked hyperexpansion and moderate bull ous emphysematous changes. No infiltrate, effusion or pneumothorax. No mediastinal, hilar or axillary lymphadenopathy. Normal heart size. There is coronary artery calcification, especially the left main. CONCLUSION: 1. Emphysema and right upper lobe scarring. Scarring is mildly nodular but still most likely benign. Six-month followup noncontrast chest CT recommended. 2. No lymphadenopathy. 3. Coronary artery calcification. John Mcdonnell MD on May 03, 2016 at 13:19 Board Certified Radiologist. This report was verified electronically.
--- NOTE | 2016-05-03 13:26 | RADRPT ---
EXAM DATE/TIME: 05/03/2016 11:33 [facility] COMPARISON: CT THORAX W CONTRAST, May 03, 2016, 11:33. CT SOFT TISSUE NECK W CONTRAST, May 01, 2016, 1 3:51. INDICATIONS : Evaluate for metastaic disease. IV CONTRAST: 75 cc Omnipaque 350 (iohexol) IV ; Cumulative dose for multiple exams. ORAL CONTRAST: No oral contrast ingested. RADIATION DOSE: 9.96 CTDIvol (mGy) ; Combined studies - Thorax/Abdomen/Pelvis MEDICAL HISTORY : Chronic obstructive pulmonary disease. Laryngeal mass. SURGICAL HISTORY : Tonsillectomy. ENCOUNTER: Initial ACUITY: 1 day PAIN SCALE: 0/10 LOCATION: Bilateral abdomen. TECHNIQUE: Volumetric scanning of the abdomen and pelvis was performed. Using automated exposure control and ad justment of the mA and/or kV according to patient size, radiation dose was kept as low as reasonably achievable to obtain optimal diagnostic quality images. FINDINGS: LOWER LUNGS: The visualized lower lungs are clear. LIVER: Homogeneous density without lesion. There is no dilation of the biliary tree. No calcified gallston es. SPLEEN: Normal size without lesion. PANCREAS: Within normal limits. KIDNEYS: Normal in size and shape. There is no mass, stone or hydronephrosis. ADRENAL GLANDS: Within normal limits. VASCULAR: Extensive atherosclerotic plaque seen of the abdominal aorta. No aneurysm. BOWEL/MESENTERY: [place] colonic diverticulosis, especially left-sided. No acute inflammatory changes are seen. CT tavo earance of the stomach and small bowel within normal limits. ABDOMINAL WALL: Within normal limits. RETROPERITONEUM: There is no lymphadenopathy. BLADDER: No wall thickening or mass. REPRODUCTIVE: Within normal limits. INGUINAL: There is no lymphadenopathy or hernia. MUSCULOSKELETAL: No lytic or sclerotic lesion or other acute bony abnormality demonstrated. CONCLUSION: 1. No malignancy or other acute abnormality seen within the abdomen or pelvis. 2. Diverticulosis of the colon without acute inflammatory changes. 3. Atherosclerotic aorta. No aneurysm. John Mcdonnell MD on May 03, 2016 at 13:22 Board Certified Radiologist. This report was verified electronically.
[2016-05-03] MEDS: D5-1/2 NS + KCL 20 MEQ INJ 1,000 ML IV SCH (15:36)
[2016-05-03] MEDS: MORPHINE SULFATE 4 MG/ML INJ IV PRN (20:37)
[2016-05-04] VITALS (14 sets, daily range): BP systolic 119–131; BP diastolic 66–83; PULSE 60–79; RESP 16–28; TEMP 97.7–98.5; O2SAT 92–98
[2016-05-04] MEDS: D5-1/2 NS + KCL 20 MEQ INJ 1,000 ML IV SCH ×3 (03:10→23:10)
--- NOTE | 2016-05-04 08:40 | HHI.PR ---
Subjective Remarks Follow up laryngeal mass. Only complaint is mild right sided neck pain that occasionally radiates to the right ear. Denies chest pain, dyspnea, nausea, vomiting. Objective Vitals Vital Signs Date Time Temp Pulse Resp B/P Pulse Ox O2 Delivery O2 Flow Rate FiO2 05/04/16 06:00 65 05/04/16 04:00 97.7 60 28 131/71 98 05/04/16 04:00 60 05/04/16 02:00 63 05/04/16 00:00 67 05/04/16 00:00 98.4 67 24 119/66 92 05/03/16 22:00 66 05/03/16 20:55 17 05/03/16 20:18 96 21 05/03/16 20:00 79 05/03/16 20:00 98.4 79 15 121/77 94 05/03/16 18:00 79 05/03/16 16:00 72 05/03/16 16:00 98.0 72 19 116/75 94 05/03/16 14:00 77 05/03/16 12:00 79 05/03/16 12:00 98.1 79 16 154/84 94 05/03/16 10:00 79 05/03/16 09:27 95 21 I/O 05/03/16 05/03/16 05/03/16 05/04/16 05/04/16 05/04/16 07:00 15:00 23:00 07:00 15:00 23:00 Intake Total 120 ml 420 ml 240 ml Output Total 500 ml 1050 ml 726 ml 800 ml Balance -380 ml -630 ml -486 ml -800 ml Intake Oral 120 ml 420 ml 240 ml IV Total 0 ml 0 ml Output Urine Total 500 ml 1050 ml 725 ml 800 ml Stool Total 0 ml 0 ml 1 ml Result Diagram: 05/01/16 1225 05/02/16 0334 Imaging Last Impressions Chest CT 05/03/16 0000 Signed Impressions: Service Date/Time: Tuesday, May 03, 2016 11:33 - CONCLUSION: 1. Emphysema and right upper lobe scarring. Scarring is mildly nodular but still most likely benign. Six-month followup noncontrast chest CT recommended. 2. No lymphadenopathy. 3. Coronary artery calcification. John Mcdonnell MD Abdomen/Pelvis CT 05/03/16 0000 Signed Impressions: Service Date/Time: Tuesday, May 03, 2016 11:33 - CONCLUSION: 1. No malignancy or other acute abnormality seen within the abdomen or pelvis. 2. Diverticulosis of the colon without acute inflammatory changes. 3. Atherosclerotic aorta. No aneurysm. John Mcdonnell MD Neck CT 05/01/16 0000 Signed Impressions: Service Date/Time: April 13:51 - CONCLUSION: 1. Large mass involving the larynx measuring 3.5 x 2.0 cm causing significant compromise to the airway. No adenopathy observed. Malignancy is felt most likely. 2. Severe emphysematous changes. 3. Areas of probable scarring involving the right lung apex. This is nodular in appearance in one area that is partially visualized. I suggest a CT of the thorax to further evaluate. Fabian Blackwood Jr., MD Objective Remarks General: No acute distress. Heart: Regular rate and rhythm. No murmur. Lungs: Clear to auscultation bilaterally. No wheezes, rales, or rhonchi. Breathing is nonlabored. Abdomen: Soft, nontender, nondistended. Extremities: No lower extremity edema. No calf tenderness. Psych: Alert and oriented. Urinary Catheter: No Vascular Central Line Catheter: No A/P Problem List: (1) Laryngeal mass ICD Code: J38.7 Status: Acute (2) COPD (chronic obstructive pulmonary disease) ICD Code: J44.9 Status: Chronic (3) Tobacco abuse ICD Code: Z72.0 Status: Chronic Assessment and Plan 1. Laryngeal mass: Likely malignancy. Appreciate oncology, ENT, general surgery recommendations. ENT is planning for biopsy of the mass tomorrow. Elective tracheostomy will be done at that time as the patient will have significant swelling from chemotherapy and radiation therapies. 2. COPD: Continue supplemental oxygen. Bronchodilators as needed. 3. Tobacco abuse: Counseled to quit smoking. 4. DVT prophylaxis: JEREMY Romeo. Avoid chemical prophylaxis in anticipation of surgical intervention. Ivan Clayton MD May 04, 2016 08:40
[2016-05-04] MEDS: RESP: ALBUTEROL 2.5 MG/IPRATROPIUM 0.5 MG NEB (PRN) NEB (09:22)
[2016-05-04] MEDS: SODIUM CHLORIDE 0.9% FLUSH 5 ML FLUSH FLUSH SCH ×2 (09:49→21:00)
[2016-05-04] MEDS: MORPHINE SULFATE 4 MG/ML INJ IV PRN (19:47)
[2016-05-05] VITALS (14 sets, daily range): BP systolic 106–156; BP diastolic 62–82; PULSE 58–98; RESP 12–28; TEMP 98–98.6; O2SAT 92–99
[2016-05-05] MEDS ORDERED: LIDOCAINE HCL 2% 100 MG/5 ML SYRINGE ONE (06:39)
[2016-05-05] MEDS ORDERED: EPINEPHrine HCL (1:10,000) 1 MG/10 ML SYRINGE ONE (06:39)
[2016-05-05] MEDS ORDERED: ATROPINE SULFATE 1 MG/10 ML SYRINGE ONE (06:40)
[2016-05-05] MEDS ORDERED: KETAMINE HCL 500 MG/5 ML VIAL ONE (07:31)
[2016-05-05] MEDS ORDERED: FAMOTIDINE 20 MG/2 ML VIAL ONE (07:33)
[2016-05-05] MEDS ORDERED: DEXAMETHASONE SOD PHOS 4 MG/ML VIAL ONE (07:33)
--- NOTE | 2016-05-05 08:48 | HHI.PR ---
cc: Isael Call MD Immediate Post Op Note Procedure Date: May 05, 2016 Pre Op Diagnosis: Right larygneal mass Post Op Diagnosis: Right laryngeal mass Surgeon: Isael Call Outreach Counselor(s): Kamari Lopez MS3 Procedure: Percutaneous tracheostomy Complications: None Specimen(s) removed: None Estimated blood loss: Less than 5 ml Anesthesia: General Drains: None Patient to: PACU Patient Condition: Good Date/Time of Procedure: SEE SURGICAL CARE RECORD Isael Call MD May 05, 2016 08:48
[2016-05-05] MEDS: SODIUM CHLORIDE 0.9% FLUSH 5 ML FLUSH FLUSH SCH ×2 (09:00→21:00)
[2016-05-05] MEDS: D5-1/2 NS + KCL 20 MEQ INJ 1,000 ML IV SCH ×3 (09:04→19:49)
--- NOTE | 2016-05-05 09:29 | RADRPT ---
EXAM DATE/TIME: 05/05/2016 09:10 [facility] COMPARISON: CT THORAX W CONTRAST, May 03, 2016, 11:33. INDICATIONS : Post tracheostomy. MEDICAL HISTORY : Chronic obstructive pulmonary disease. Laryngeal mass. SURGICAL HISTORY : Tonsillectomy. ENCOUNTER: Initial ACUITY: 1 day PAIN SCORE: Non-responsive. LOCATION: Bilateral chest FINDINGS: Placement of a tracheostomy is appreciated without complication and no pneumothorax. Lung sebastian are clear and hyperinflated consistent with COPD and CONCLUSION: Tracheostomy well-positioned with no complication no pneumothorax. Francisco Javier Pink MD on May 05, 2016 at 9:27 Board Certified Radiologist. This report was verified electronically.
--- NOTE | 2016-05-05 09:33 | MP ---
cc: TIFFANIE EVANS M.D. DATE OF SURGERY 05/05/2016 PROCEDURE Tracheostomy. PREOPERATIVE DIAGNOSIS Right laryngeal mass with need for chemotherapy and radiation and compromised airway. POSTOPERATIVE DIAGNOSIS Right laryngeal mass with need for chemotherapy and radiation and compromised airway. ANESTHESIA General endotracheal. SURGEON MD Jakub ESTIMATED BLOOD LOSS Less than 5 mL. COMPLICATIONS None. DRAINS None. SPECIMEN None. PROCEDURE IN DETAIL The patient was taken to the operating room, placed on the operating table in supine position. After an adequate level of general endotracheal anesthesia was achieved, Dr. Kilgore entered the room and biopsy of the laryngeal mask was accomplished by Dr. Kilgore. Please see his dictation for this portion of this procedure. After Dr. Kilgore scrubbed out, the neck was prepped and draped. Second time-out was taken confirming the correct patient, site and procedure to be performed. The skin and subcutaneous tissue was infiltrated with local anesthetic and a small transverse incision was made two fingerbreadths above the sternal notch. The Anesthesia Team then loosened the tape and withdrew the endotracheal tube to 18 cm. The undersigned was then able to pass an angiocatheter into the trachea with good air return. The needle was withdrawn and the angiocatheter advanced slightly. The guidewire was then passed through the angiocatheter eliciting a cough from the patient. The angiocatheter was removed and a tracheal punch was passed over the guidewire. The tracheal punch was removed and a white catheter guide and Blue Rhino was passed over the guidewire. The Blue Rhino was then removed leaving the white catheter guide behind as well as the guidewire. A #8 percutaneous tracheostomy with a 28-[place] tracheostomy guide was then passed over the white catheter guide and green guidewire. This entered the trachea easily. The tracheostomy guide, the white catheter guide and the green guidewire were all then removed. The balloon was inflated. The obturator was then placed into the tracheostomy tube and the circuit switched over to the tracheostomy. At this point the patient was oxygenated and then the circuit was removed temporarily and the trachea suctioned. Irrigation was accomplished with saline as well and slightly bloody, thick secretions were easily removed. When this had been accomplished, the obturator was re-inserted and the circuit reapplied. Better tidal volumes were obtained in easier ventilation was obtained as well. The patient's saturations always remained in the high 90s throughout the entire procedure. Four 2-0 Prolene sutures were then used to secure the tracheostomy in place. A tracheostomy dressing was placed underneath the tracheostomy and a Velcro collar was applied around the back of the neck to secure the tracheostomy tube. The patient was taken back to the recovery room in stable condition. Sponge and needle counts were reported to be correct. The patient tolerated the procedure well. MD TARI Diaz/SSB /8:55 AM /9:28 AM
--- NOTE | 2016-05-05 09:45 | MP ---
cc: TIFFANIE CALL M.D.,DANIEL Jones MD DATE OF SURGERY 05/05/2016 PREOPERATIVE DIAGNOSIS Laryngeal mass. POSTOPERATIVE DIAGNOSIS Laryngeal mass. PROCEDURE PERFORMED Direct laryngoscopy with biopsy. ANESTHESIA General tracheal anesthesia was used. COMPLICATIONS None. SPECIMEN OBTAINED 1. False vocal fold biopsy. 2. True vocal fold biopsies. INDICATION FOR PROCEDURE This is a 61-year-old male with slowly worsening shortness of breath and hoarseness over the last three months. The patient was evaluated by CT scan and noted to have a significant laryngeal mass as well as the patient was noted to have large right-sided laryngeal mass on flexible scope at the bedside with deemed surgical intervention. As well, the patient was going to benefit from a tracheostomy which was going to be performed by Dr. Call at the time of the surgery. The risks and benefits were described in detail for the direct laryngoscopy. The patient agreed and wished to proceed with the procedure as planned. DESCRIPTION OF OPERATIVE COURSE After informed consent was obtained, the patient was taken to the operating room, placed supine on the operating table. General endotracheal anesthesia was initiated following which the head of bed was turned approximately 90 degrees. The patient was then prepped and draped in standard surgical fashion. Once this was completed, a Kleinsasser laryngoscope was inserted into the patient's oral cavity. The oral cavity was investigated. The patient was noted to be edentulous. The oropharynx was investigated. There was no mass, lesion or ulceration noted. The epiglottis was evaluated; there was no mass, lesion or ulceration noted. The scope was inserted into the larynx. The endolarynx was brought into view. The right false vocal fold, right arytenoid, right ventricle, right false cord was and true vocal cord was all obliterated with a large exophytic mass. There was no lesion noted to the left false cord or the left true vocal cord. At this time multiple biopsies were taken of the right-sided laryngeal mass of both the right false cord as well as the right true cord and sent for permanent section pathology. The scope was advanced into the piriform sinus. There was no lesion noted in the piriform sinus. However, the mass did have a submucosal mass effect to it on the right side. Once this was completed, Dr. Call performed his portion of the procedure for a tracheostomy. Please see his operative note for the remainder of the surgical intervention. Daniel RONQUILLO/FEDERICO /9:02 AM /9:34 AM
--- NOTE | 2016-05-05 11:48 | HHI.PR ---
Subjective Remarks Follow up laryngeal mass. S/P biopsy and trach placement today. Doing well. Reports discomfort at trach site. Otherwise no complaints at this time. Objective Vitals Vital Signs Date Time Temp Pulse Resp B/P Pulse Ox O2 Delivery O2 Flow Rate FiO2 05/05/16 10:00 89 05/05/16 09:52 97 T-piece 40 05/05/16 09:46 98.6 92 16 128/79 99 05/05/16 09:43 92 05/05/16 09:20 82 16 97 T-Piece 40 05/05/16 09:15 97.8 80 16 152/85 97 T-Piece 40 05/05/16 09:00 78 16 156/89 96 T-Piece 40 05/05/16 08:50 97.5 71 18 169/88 95 T-Piece 40 05/05/16 06:00 80 05/05/16 04:00 72 05/05/16 04:00 98.1 72 24 122/77 93 05/05/16 02:00 70 05/05/16 00:00 98.0 63 19 106/62 95 05/05/16 00:00 63 05/04/16 22:00 70 05/04/16 20:18 94 21 05/04/16 20:00 98.3 77 20 122/83 94 05/04/16 20:00 77 05/04/16 19:52 17 05/04/16 18:00 74 05/04/16 16:00 98.5 70 18 128/82 96 05/04/16 16:00 70 05/04/16 14:00 73 05/04/16 12:00 79 05/04/16 12:00 98.2 79 19 127/79 94 I/O 05/04/16 05/04/16 05/04/16 05/05/16 05/05/16 05/05/16 07:00 15:00 23:00 07:00 15:00 23:00 Intake Total 720 ml 360 ml 300 ml Output Total 800 ml 1150 ml 875 ml 650 ml 25 ml Balance -800 ml -430 ml -515 ml -650 ml 275 ml Intake Oral 720 ml 360 ml IV Total 50 ml Other 250 ml Output Urine Total 800 ml 1150 ml 875 ml 650 ml Stool Total 0 ml 0 ml 0 ml Estimated Blood Loss 25 ml # Voids 0 Result Diagram: 05/01/16 1225 05/02/16 0334 Imaging Last Impressions Chest X-Ray 05/05/16 0000 Signed Impressions: Service Date/Time: Thursday, May 05, 2016 09:10 - CONCLUSION: Tracheostomy well-positioned with no complication no pneumothorax. Francisco Javier Pink MD Chest CT 05/03/16 0000 Signed Impressions: Service Date/Time: Tuesday, May 03, 2016 11:33 - CONCLUSION: 1. Emphysema and right upper lobe scarring. Scarring is mildly nodular but still most likely benign. Six-month followup noncontrast chest CT recommended. 2. No lymphadenopathy. 3. Coronary artery calcification. John Mcdonnell MD Abdomen/Pelvis CT 05/03/16 0000 Signed Impressions: Service Date/Time: Tuesday, May 03, 2016 11:33 - CONCLUSION: 1. No malignancy or other acute abnormality seen within the abdomen or pelvis. 2. Diverticulosis of the colon without acute inflammatory changes. 3. Atherosclerotic aorta. No aneurysm. John Mcdonnell MD Neck CT 05/01/16 0000 Signed Impressions: Service Date/Time: April 13:51 - CONCLUSION: 1. Large mass involving the larynx measuring 3.5 x 2.0 cm causing significant compromise to the airway. No adenopathy observed. Malignancy is felt most likely. 2. Severe emphysematous changes. 3. Areas of probable scarring involving the right lung apex. This is nodular in appearance in one area that is partially visualized. I suggest a CT of the thorax to further evaluate. Fabian Blackwood Jr., MD Objective Remarks General: No acute distress. Trach. Heart: Regular rate and rhythm. No murmur. Lungs: Clear to auscultation bilaterally. No wheezes, rales, or rhonchi. Breathing is nonlabored. Abdomen: Soft, nontender, nondistended. Extremities: No lower extremity edema. No calf tenderness. Psych: Alert and oriented. Urinary Catheter: No Vascular Central Line Catheter: No A/P Problem List: (1) Laryngeal mass ICD Code: J38.7 Status: Acute (2) COPD (chronic obstructive pulmonary disease) ICD Code: J44.9 Status: Chronic (3) Tobacco abuse ICD Code: Z72.0 Status: Chronic Assessment and Plan 1. Laryngeal mass: Likely malignancy. Appreciate oncology, ENT, general surgery recommendations. S/P biopsy of the mass. S/P tracheostomy. Await pathology. 2. COPD: Continue supplemental oxygen. Bronchodilators as needed. 3. Tobacco abuse: Counseled to quit smoking. 4. DVT prophylaxis: JEREMY Romeo. Avoid chemical prophylaxis in anticipation of surgical intervention. Ivan Clayton MD May 05, 2016 11:48
[2016-05-05] MEDS ORDERED: PROPOFOL 200 MG/20 ML AMP IV ONE (12:00)
[2016-05-05] MEDS ORDERED: ePHEDrine/NS 25 MG/5 ML SYR IV ONE (12:00)
[2016-05-05] MEDS ORDERED: LACTATED RINGER'S 1000 ML INJ 1,000 ML IV ONE (12:00)
[2016-05-05] MEDS ORDERED: PHENYLEPH/NS 1000 MCG/10 ML SYR IV ONE (12:00)
[2016-05-05] MEDS ORDERED: ONDANSETRON HCL 4 MG/2 ML VIAL IV PUSH ONE (12:00)
--- NOTE | 2016-05-05 14:20 | EKG ---
Date Performed: 05/05/2016 Time Performed: 04:02:18 PTAGE: 61 years EKG: Sinus rhythm . Left axis deviation Abnormal ECG PREVIOUS TRACING : 10/14/2011 13.55 DOCTOR: Sarthak Bhardwaj Interpretating Date/Time 05/05/2016 14:17:07
[2016-05-05] MEDS: MORPHINE SULFATE 4 MG/ML INJ IV PRN (19:49)
[2016-05-06] VITALS (16 sets, daily range): BP systolic 127–151; BP diastolic 77–95; PULSE 64–86; RESP 16–24; TEMP 97–100.1; O2SAT 97–100
[2016-05-06] MEDS: D5-1/2 NS + KCL 20 MEQ INJ 1,000 ML IV SCH ×3 (05:58→20:02)
[2016-05-06] MEDS: ONDANSETRON HCL 4 MG/2 ML VIAL IVP PRN ×3 (07:27→20:02)
--- NOTE | 2016-05-06 08:22 | PD.ONC.PN ---
Subjective Subjective Remarks Mr. Avila reports pain at the site of the tracheostomy. He had vomiting this morning. He otherwise denies complaints specifically difficulty breathing. On 05/05/2016 he underwent tracheostomy creation and biopsy of the laryngeal mass. Over the weekend he underwent staging studies with CT scans of the chest and abdomen; there was no definite evidence of metastatic disease. Objective Data Date Time Temp Pulse Resp B/P Pulse Ox O2 Delivery O2 Flow Rate FiO2 05/06/16 08:05 75 24 130/78 100 05/06/16 07:45 100 T-piece 5.00 28 05/06/16 06:00 80 05/06/16 04:00 68 05/06/16 04:00 99.1 68 20 147/79 100 05/06/16 02:00 64 05/06/16 00:38 98 T-piece 6.00 35 05/06/16 00:00 86 05/06/16 00:00 99.2 86 21 151/95 100 05/05/16 22:00 78 05/05/16 20:00 76 05/05/16 20:00 98.6 76 12 138/82 99 05/05/16 18:00 83 05/05/16 16:00 62 05/05/16 16:00 98.5 98 28 156/72 92 05/05/16 14:00 79 05/05/16 12:00 98.5 58 23 120/77 99 05/05/16 12:00 72 05/05/16 10:00 89 05/05/16 09:52 97 T-piece 40 05/05/16 09:46 98.6 92 16 128/79 99 05/05/16 09:43 92 05/05/16 09:20 82 16 97 T-Piece 40 05/05/16 09:15 97.8 80 16 152/85 97 T-Piece 40 05/05/16 09:00 78 16 156/89 96 T-Piece 40 05/05/16 08:50 97.5 71 18 169/88 95 T-Piece 40 Result Diagram: 05/02/16 0334 Administered Medications Medications (Trade) Dose Ordered Sig/Darryl Route PRN Reason Start Time Stop Time Status Last Admin Dose Admin Potassium Chloride/Dextrose/ Sod Cl (D5-1/2 NS + KCl 20 Meq Inj) 1,000 ml @ 100 mls/hr Q10H IV 05/01/16 15:10 05/06/16 05:58 IV Flush (NS Flush) 2 ml BID FLUSH 05/01/16 21:00 05/04/16 21:00 Ondansetron HCl (Zofran Inj) 4 mg Q6H PRN IVP NAUSEA OR VOMITING 05/01/16 15:15 05/06/16 07:27 Morphine Sulfate (Morphine Inj) 2 mg Q3H PRN IV Pain 3-5; if unable to take PO 05/01/16 15:15 05/05/16 19:49 Objective Remarks GENERAL: Middle-aged male, sitting up in bed, interval placement of tracheostomy. SKIN: Warm and dry. HEAD: Normocephalic. EYES: No scleral icterus. No injection or drainage. NECK: Supple, trachea midline. No JVD or lymphadenopathy. LYMPHATIC: No adenopathy. CARDIOVASCULAR: Regular rate and rhythm without murmurs. RESPIRATORY: Prolonged expiratory phase, scattered rhonchi. GASTROINTESTINAL: Abdomen soft, non-tender, nondistended. EXTREMITIES: No cyanosis, or edema. MUSCULOSKELETAL: Adequate muscle tone. NEUROLOGICAL: No obvious focal deficit. Awake, alert, and oriented x3. PSYCHIATRIC: Appropriate mood and affect; insight and judgment normal. Assessment/Plan Assessment 61y/o male with laryngeal mass, suspected primary malignancy of the larynx. +7-month history of progressive pain/soreness of the throat. two-month history of progressive difficulty breathing on inhalation. +hoarse voice --no difficulty swallowing or hemoptysis or hematemesis. --flexible laryngoscopy at bedside showed exophytic mass centered along the left false vocal cord was appreciated w/ submucosal extension. Plan 1. 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 Await biopsy results. I have consulted radiation oncology to begin planning for concurrent chemoradiotherapy. This will be considered as first-line treatment to allow him organ sparing/organ preserving initial management. The patient has already undergone full mouth tooth extraction, so we do not have to await a dental evaluation. I've also requested a feeding tube to be placed. Given the patient's lack of insurance and anticipated difficulty with placement (now that he has a tracheostomy and will be getting a feeding tube), I anticipate this patient will be receiving inpatient systemic chemotherapy as well as radiation. From past experience, I have encountered prolonged delays in initiating outpatient systemic therapy and radiation therapy in individuals such as this who are under insured. The oncology service will continue following with you. Urban Lofton MD May 06, 2016 08:22
[2016-05-06] MEDS ORDERED: ceFAZolin 2 GM PREMIX 50 ML IV SCH (09:30)
[2016-05-06 10:26] LABS: APTT (PATIENT) 26.6 SEC (24.3-30.1); PROTHROMBIN TIME - PATIENT 10.7 SEC (9.8-11.6)
--- NOTE | 2016-05-06 10:26 | HHI.PR ---
Subjective Subjective Notes Resting in bed No issues overnight Objective Vitals/I&O Vital Signs Date Time Temp Pulse Resp B/P Pulse Ox O2 Delivery O2 Flow Rate FiO2 05/06/16 08:05 98.6 75 24 130/78 100 05/06/16 07:45 T-piece 5.00 28 Radiology Last [address] 05/01/16 0000 Signed Impressions: Service Date/Time: April 13:51 - CONCLUSION: 1. Large mass involving the larynx measuring 3.5 x 2.0 cm causing significant compromise to the airway. No adenopathy observed. Malignancy is felt most likely. 2. Severe emphysematous changes. 3. Areas of probable scarring involving the right lung apex. This is nodular in appearance in one area that is partially visualized. I suggest a CT of the thorax to further evaluate. Fabian Blackwood Jr., MD Cardiovascular: Regular Lungs: Clear Abdomen: Non-distended, Non-tender Extremities: No edema Narrative Exam trach in place without complications ----minimal drainage on dressing A/P Assessment and Plan 61 year old male with laryngeal mass in need for tracheostomy placement -Trach in good position without complications -Pain controlled -Patient scheduled for PEG placement today -Tolerating regular diet -Wean oxygen off as tolerated -Discussed with FLAQUITA Lin at bedside -GS will sign off; please call with questions Attending Note - Dr. Call Trach site with no new drainage. ST to see patient. OK for preop diet; no reason to limit patient The exam, history, and the medical decision-making described in the above note were completed with the assistance of the mid-level provider. I reviewed and agree with the findings presented. I attest that I had a [id number] encounter with the patient on the same day, and personally performed and documented my assessment and findings in the medical record. Ebonie Wolf May 06, 2016 10:26 Isael Call MD May 08, 2016 18:25
--- NOTE | 2016-05-06 11:58 | HHI.PR ---
Subjective Remarks Follow up laryngeal mass, nausea/vomiting. Patient reporting some pain at trach site. Has had a lot of vomiting per nursing. He denies nausea currently. Miguel is helping. Going for PEG tube placement today. Objective Vitals Vital Signs Date Time Temp Pulse Resp B/P Pulse Ox O2 Delivery O2 Flow Rate FiO2 05/06/16 08:05 98.6 75 24 130/78 100 05/06/16 07:45 100 T-piece 5.00 28 05/06/16 06:00 80 05/06/16 04:00 68 05/06/16 04:00 99.1 68 20 147/79 100 05/06/16 02:00 64 05/06/16 00:38 98 T-piece 6.00 35 05/06/16 00:00 86 05/06/16 00:00 99.2 86 21 151/95 100 05/05/16 22:00 78 05/05/16 20:00 76 05/05/16 20:00 98.6 76 12 138/82 99 05/05/16 18:00 83 05/05/16 16:00 62 05/05/16 16:00 98.5 98 28 156/72 92 05/05/16 14:00 79 05/05/16 12:00 98.5 58 23 120/77 99 05/05/16 12:00 72 I/O 05/05/16 05/05/16 05/05/16 05/06/16 05/06/16 05/06/16 07:00 15:00 23:00 07:00 15:00 23:00 Intake Total 701 ml 868 ml 754 ml Output Total 650 ml 400 ml 900 ml 552 ml Balance -650 ml 301 ml -32 ml 202 ml IV Total 451 ml 868 ml 754 ml Other 250 ml Output Urine Total 650 ml 375 ml 900 ml 550 ml Stool Total 0 ml 0 ml 0 ml 0 ml Emesis 2 ml Estimated Blood Loss 25 ml # Voids 0 Result Diagram: 05/02/16 0334 Imaging Last Impressions Chest X-Ray 05/05/16 0000 Signed Impressions: Service Date/Time: Thursday, May 05, 2016 09:10 - CONCLUSION: Tracheostomy well-positioned with no complication no pneumothorax. Francisco Javier Pink MD Chest CT 05/03/16 0000 Signed Impressions: Service Date/Time: Tuesday, May 03, 2016 11:33 - CONCLUSION: 1. Emphysema and right upper lobe scarring. Scarring is mildly nodular but still most likely benign. Six-month followup noncontrast chest CT recommended. 2. No lymphadenopathy. 3. Coronary artery calcification. John Mcdonnell MD Abdomen/Pelvis CT 05/03/16 0000 Signed Impressions: Service Date/Time: Tuesday, May 03, 2016 11:33 - CONCLUSION: 1. No malignancy or other acute abnormality seen within the abdomen or pelvis. 2. Diverticulosis of the colon without acute inflammatory changes. 3. Atherosclerotic aorta. No aneurysm. John Mcdonnell MD Neck CT 05/01/16 0000 Signed Impressions: Service Date/Time: April 13:51 - CONCLUSION: 1. Large mass involving the larynx measuring 3.5 x 2.0 cm causing significant compromise to the airway. No adenopathy observed. Malignancy is felt most likely. 2. Severe emphysematous changes. 3. Areas of probable scarring involving the right lung apex. This is nodular in appearance in one area that is partially visualized. I suggest a CT of the thorax to further evaluate. Fabian Blackwood Jr., MD Objective Remarks General: No acute distress. Trach. Heart: Regular rate and rhythm. No murmur. Lungs: Clear to auscultation bilaterally. No wheezes, rales, or rhonchi. Breathing is nonlabored. Abdomen: Soft, nontender, nondistended. Extremities: No lower extremity edema. No calf tenderness. Psych: Alert and oriented. Procedures 05/05/16 Laryngeal mass biopsy 05/05/16 tracheostomy Urinary Catheter: No Vascular Central Line Catheter: No A/P Problem List: (1) Laryngeal mass ICD Code: J38.7 Status: Acute (2) COPD (chronic obstructive pulmonary disease) ICD Code: J44.9 Status: Chronic (3) Tobacco abuse ICD Code: Z72.0 Status: Chronic (4) Nausea & vomiting ICD Code: R11.2 Status: Acute Assessment and Plan 1. Laryngeal mass: Likely malignancy. Appreciate oncology, ENT, general surgery recommendations. S/P biopsy of the mass. S/P tracheostomy. Await pathology. Radiation oncology consulted for concurrent chemo/radiation. PEG tube placement today. 2. COPD: Continue supplemental oxygen. Bronchodilators as needed. 3. Tobacco abuse: Counseled to quit smoking. 4. DVT prophylaxis: JEREMY Romeo. Avoid chemical prophylaxis in anticipation of surgical intervention. 5. Nausea/vomiting: Continue Zofran as needed. Discharge Planning Transfer to [address] [place] [address]. Ivan Clayton MD May 06, 2016 11:58
[2016-05-06] MEDS ORDERED: MIDAZOLAM HCL 5 MG/5 ML VIAL ONE (12:28)
[2016-05-06] MEDS ORDERED: GLUCAGON 1 MG/ML VIAL ONE (12:29)
[2016-05-06] MEDS ORDERED: fentaNYL CITRATE 250 MCG/5 ML AMP ONE (12:29)
[2016-05-06] MEDS ORDERED: IOHEXOL 350 MG/ML 50 ML BTL (for RAD DIAG) G-TUBE ONE (13:45)
--- NOTE | 2016-05-06 14:58 | PD.RAD ---
Post Procedure Progress Note Pre Procedure Diagnosis: (1) Laryngeal mass Post Procedure Diagnosis: (1) Laryngeal mass Procedure Date: May 06, 2016 Supervising Radiologist: Fabian Blackwood JR Proceduralist/Assist: Sunitha Florian RT(R), RT Gale(R) Anesthesia: Conscious Sedation Plan of Activity Patient to Unit: ROPU Patient Condition: Good See PACS Report for procedural detail/treatment Feeding Tube Gastrostomy Placement [place]arian: 18 Findings: Placed gastrostomy tube without difficulty. Plan T fasteners should fall off in 3 weeks Jr. Jaison,Fabian Coy MD May 06, 2016 14:58
[2016-05-06] MEDS: SODIUM CHLORIDE 0.9% FLUSH 5 ML FLUSH FLUSH SCH ×2 (14:59→20:02)
--- NOTE | 2016-05-06 16:11 | RADRPT ---
EXAM DATE/TIME: 05/06/2016 13:15 [facility] COMPARISON: No previous studies available for comparison. INDICATIONS : Patient with laryngeal mass in need of gastrostomy tube placement. MEDICAL HISTORY : COPD Hx of kidney stones SURGICAL HISTORY : Tonsillectomy Tracheostoly placement ENCOUNTER: Initial ACUITY: 4-6 days PAIN SCORE: 0/10 FLUORO TIME: 2.0 minutes SEDATION TIME: 30 minutes CONTRAST: 5 cc Omnipaque (iohexol) 350 MEDICATION(S): 1.) 4 mg midazolam (Versed) IV 2.) 150 mcg Fentanyl (Sublimaze) IV DEVICE(S): 1.) 18 Fr gastrostomy tube PROCEDURE : 1. Limited abdominal ultrasound. 2. Fluoroscopically guided gastrostomy tube placement. 3. Conscious sedation with continuous EKG and oximetry monitoring. The risks, benefits and alternatives to the procedure were explained and verbal and written consent w as obtained. The site was prepped in sterile fashion. Full sterile technique was used, including ca p, mask, sterile gloves and gown and a large sterile sheet. Hand hygiene and 2% chlorhexidine and/or betadine/alcohol prep was utilized per protocol for cutaneous antisepsis. The skin and subcutaneous tissues were infiltrated with local anesthetic solution. Ultrasound was used to kwame the position of the liver. The stomach was insufflated with room air. Th ree percutaneous fasteners were placed to secure the anterior gastric wall. A small incision was made between the fasteners. The stomach was accessed with an 18 gauge needle. A n 0.035 wire was advanced into the small bowel. The tract was dilated. The gastrostomy tube was int roduced through a peel-away sheath. The position was confirmed with an injection of contrast. Conscious sedation was performed with the prescribed dosages and duration as above. The patient julian ated the procedure well and there were no complications. EKG and oximetry remained stable throughout the procedure. The patient was sent to post anesthesia recovery in stable condition. CONCLUSION: Uncomplicated gastrostomy tube placement as above. Fabian Blackwood Jr., MD on May 06, 2016 at 16:09 Board Certified Radiologist. This report was verified electronically.
[2016-05-06] MEDS: MORPHINE SULFATE 4 MG/ML INJ IV PRN ×2 (16:43→23:22)
[2016-05-07] VITALS (7 sets, daily range): BP systolic 119–125; BP diastolic 71–80; PULSE 9–82; RESP 16–20; TEMP 98.3–100; O2SAT 96–99
[2016-05-07] MEDS: D5-1/2 NS + KCL 20 MEQ INJ 1,000 ML IV SCH ×2 (04:19→14:41)
--- NOTE | 2016-05-07 07:57 | HHI.PR ---
Subjective Remarks Follow up laryngeal mass, nausea/vomiting. Patient states that he feels better today. PEG tube placed yesterday. Small amount of vomiting this morning, much less than yesterday. Denies dyspnea or chest pain. Objective Vitals Vital Signs Date Time Temp Pulse Resp B/P Pulse Ox O2 Delivery O2 Flow Rate FiO2 05/07/16 04:00 98.8 75 17 119/71 99 05/06/16 23:00 97.0 80 18 127/78 97 05/06/16 22:00 76 05/06/16 21:56 99 T-piece 6.00 05/06/16 20:00 78 05/06/16 20:00 99.0 78 21 139/77 100 05/06/16 18:00 75 05/06/16 16:00 100.1 76 16 143/82 99 05/06/16 16:00 76 05/06/16 14:00 72 05/06/16 12:36 80 05/06/16 12:00 98.5 75 19 149/84 100 05/06/16 08:05 98.6 75 24 130/78 100 I/O 05/06/16 05/06/16 05/06/16 05/07/16 05/07/16 05/07/16 07:00 15:00 23:00 07:00 15:00 23:00 Intake Total 754 ml 0 ml 1288 ml 732 ml Output Total 552 ml 1800 ml 650 ml 200 ml Balance 202 ml -1800 ml 638 ml 532 ml IV Total 754 ml 1288 ml 732 ml Other 0 ml Output Urine Total 550 ml 800 ml 650 ml 200 ml Stool Total 0 ml 0 ml Emesis 2 ml 1000 ml Imaging Last Impressions Gastrostomy Tube Placement 05/06/16 0000 Signed Impressions: Service Date/Time: Friday, May 06, 2016 13:15 - CONCLUSION: Uncomplicated gastrostomy tube placement as above. Fabian Blackwood Jr., MD Chest X-Ray 05/05/16 0000 Signed Impressions: Service Date/Time: Thursday, May 05, 2016 09:10 - CONCLUSION: Tracheostomy well-positioned with no complication no pneumothorax. Francisco Javier Pink MD Chest CT 05/03/16 0000 Signed Impressions: Service Date/Time: Tuesday, May 03, 2016 11:33 - CONCLUSION: 1. Emphysema and right upper lobe scarring. Scarring is mildly nodular but still most likely benign. Six-month followup noncontrast chest CT recommended. 2. No lymphadenopathy. 3. Coronary artery calcification. John Mcdonnell MD Abdomen/Pelvis CT 05/03/16 0000 Signed Impressions: Service Date/Time: Tuesday, May 03, 2016 11:33 - CONCLUSION: 1. No malignancy or other acute abnormality seen within the abdomen or pelvis. 2. Diverticulosis of the colon without acute inflammatory changes. 3. Atherosclerotic aorta. No aneurysm. John Mcdonnell MD Neck CT 05/01/16 0000 Signed Impressions: Service Date/Time: April 13:51 - CONCLUSION: 1. Large mass involving the larynx measuring 3.5 x 2.0 cm causing significant compromise to the airway. No adenopathy observed. Malignancy is felt most likely. 2. Severe emphysematous changes. 3. Areas of probable scarring involving the right lung apex. This is nodular in appearance in one area that is partially visualized. I suggest a CT of the thorax to further evaluate. Fabian Blackwood Jr., MD Objective Remarks General: No acute distress. Trach. Heart: Regular rate and rhythm. No murmur. Lungs: Clear to auscultation bilaterally. No wheezes, rales, or rhonchi. Breathing is nonlabored. Abdomen: Soft, nontender, nondistended. PEG tube in place. Extremities: No lower extremity edema. No calf tenderness. Psych: Alert and oriented. Nonverbal, but answers questions by nodding or writing answers. Procedures 05/05/16 Laryngeal mass biopsy 05/05/16 tracheostomy Urinary Catheter: No Vascular Central Line Catheter: No A/P Problem List: (1) Laryngeal mass ICD Code: J38.7 Status: Acute (2) COPD (chronic obstructive pulmonary disease) ICD Code: J44.9 Status: Chronic (3) Tobacco abuse ICD Code: Z72.0 Status: Chronic (4) Nausea & vomiting ICD Code: R11.2 Status: Acute Assessment and Plan 1. Laryngeal mass: Likely malignancy. Appreciate oncology, ENT, general surgery recommendations. S/P biopsy of the mass. S/P tracheostomy. Await pathology. Radiation oncology consulted for concurrent chemo/radiation. PEG tube placed yesterday. Dietary consult requested. Patient is NPO. Continue IV fluids. 2. COPD: Continue supplemental oxygen. Bronchodilators as needed. 3. Tobacco abuse: Counseled to quit smoking. 4. DVT prophylaxis: JEREMY Romeo. Avoid chemical prophylaxis in anticipation of surgical intervention. 5. Nausea/vomiting: Improving. Continue Zofran as needed. Discharge Planning Patient will likely need to remain hospitalized for initial chemotherapy. Ivan Clayton MD May 07, 2016 07:57
[2016-05-07] MEDS: SODIUM CHLORIDE 0.9% FLUSH 5 ML FLUSH FLUSH SCH ×2 (07:58→22:12)
--- NOTE | 2016-05-07 09:50 | RC ---
cc: NADEEN ORR MD,TIFFANIE PORTER,KACY WALDEN,BLAINE WILCOX,MICKIE LOFTON,DONAL CARPENTER DATE OF SERVICE 05/06/2016 DATE OF 1955. REF[address]ING PHYSICIAN Dr. Donal Lofton. 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 REASON FOR CONSULTATION Patient being evaluated for possible definitive radiotherapy treatment options. HISTORY OF PRESENT ILLNESS This is a 61-year-old white male with greater than 60 pack-year history of smoking. The patient says that about 7 months ago he started experiencing some hoarseness and pain. It has been progressively getting worse in the last two months. Also having some increasing difficulty with breathing and inhalation. A result of this, the patient stated that he visited several outpatient facilities, was given antibiotics with no resolution. The symptoms have continued to progress to a point where the patient has stated that he was having major issues and symptoms. As a result of this, he came into the emergency room. He was evaluated, had a CT which detected possible laryngeal mass with airway compromise. As a result of this the patient had exam under anesthesia by Dr. Orr and a tracheostomy by Dr. Call. I have discussed this case personally today with Dr. Lofton. He had requested for me to see the patient in consult for possible concomitant chemoradiation therapy once the patient is stable. PAST MEDICAL HISTORY As above. Otherwise unremarkable. MEDICATIONS As per hospital chart, include - 1. Morphine sulfate. 2. IV fluids. 3. DuoNeb. ALLERGIES No known allergies. FAMILY HISTORY No history of cancer in the family. SOCIAL HISTORY The patient has been smoking one to two packs of cigarettes per day for about 40 years. The patient says he is not currently smoking. Denies any major EtOH intake now, although in the past appears to have used alcohol. REVIEW OF SYSTEMS: CONSTITUTIONAL: The patient with no decrease in appetite. Some fatigue. ALLERGIC: Has not had allergic reaction recently. EYES: Unremarkable. ENT: The patient admits to pain and pressure in the neck. Denies any difficulty swallowing, but pain in the area. NECK: The patient denies any neck masses. INTEGUMENTARY: Unremarkable. CARDIOVASCULAR: Unremarkable. The patient denies any chest pain or clinical signs or symptoms of NV. RESPIRATORY: The patient says that after having the tracheostomy he is breathing a lot better, but previous to admission was having progressive symptoms with breathing. GASTROINTESTINAL: The patient has nausea and vomiting at the present time. GENITOURINARY: Unremarkable. MUSCULOSKELETAL: Unremarkable. NEUROLOGICAL: Unremarkable. Denies any decrease in cognitive functions. No signs or symptoms of increased intracranial pressure. No loss clinical symptoms of stroke. PSYCHIATRIC: Unremarkable. ENDOCRINE: Unremarkable. HEMATOLOGIC: Unremarkable. DERMATOLOGIC: Unremarkable. PHYSICAL EXAMINATION GENERAL: The patient is oriented x 3, in no major acute distress at the time of evaluation. PAIN RATING SCALE: 1-3/10, under control. VITAL SIGNS: Stable per hospitalist chart. LUNGS: Auscultation of the bilateral lungs were clear to auscultation with decreased ventilatory respiratory effort. HEART: Regular in rate and rhythm, without murmurs. NECK: Palpation of the neck and bilateral supraclavicular areas are free. ABDOMEN: Palpation of the abdominal cavity reveals no hepatosplenomegaly. No periumbilical masses are palpated. EXTREMITIES: No lower extremity edema detected. NEUROLOGICAL EXAMINATION: No neurological deficit detected. Cognitive functions preserved. Motor functions preserved. SURGICAL PATHOLOGY Right false vocal cord, right true vocal cord. Vocal cord right biopsy revealed epithelial hyperplasia, inflammation and focal mild epithelial dysplasia. 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 RADIOLOGY Chest x-ray 05/05/[address] of abdomen and pelvis 05/03/[address] of the chest 05/03/[address] soft tissues of the neck 05/01/2016. IMPRESSION: Large mass involving the larynx measuring 3.5 x 2.6-mm causing significant compromise of the airway. No adenopathy observed. Malignancy is felt most likely. Areas of probable scar involving the right lung apex. This is nodular in appearance in one area that is partially visualized. ASSESSMENT A 61-year-old white male with diagnosis of carcinoma of the larynx, locally advanced. The patient is being evaluated for possible therapeutic treatment options. PLAN Had an extensive discussion with the patient in regards to his present disease and condition. I have discussed this case with Dr. Lofton today and have evaluated his note from 05/02/2016. The patient does not have any teeth; that should make the process easier. The patient currently throwing up so I would wait until the patient is stable enough and not throwing up for us to provide simulation in preparation for radiation therapy in combination with chemotherapy. The case will be further discussed with Dr. Lofton since he only has a diagnosis of carcinoma in situ at this point. The patient advised the risks and benefits of radiation therapy, the purpose, the merits. The patient advised that patients with locally advanced laryngeal carcinoma sometimes fail the radiation therapy and chemotherapy and then need salvage laryngectomy. The patient understands that the two options would be to proceed forward with laryngectomy at this point versus radiation therapy in combination with chemo. He understands that the local control rate is probably best if he goes with a laryngectomy at the present time. The patient declines to do so and he wants to try to preserve his voice box. I discussed the merits of the radiation therapy, side effects, complications to include but not limited to: weakness and fatigue, decreased blood counts, edema of the skin, necrosis of the skin, difficulty and pain on swallowing, esophageal strictures which may require dilation, bone damage and jaw necrosis, dry mouth which will be permanent, salivary gland damage which will be permanent, thick saliva, nausea and vomiting, change or loss of taste which could be permanent, fibrosis of the skin, telangiectasia of the skin, lung damage, lung fibrosis, lung pneumonitis, nerve damage, spinal cord damage, Lhermitte's syndrome, decreased hearing, loss of hearing, loss of hair in the facial area and the occipital area which will be permanent. The patient understands that laryngeal edema sometimes can last up to 18-24 months to resolve. I would like to get a PET scan for the patient once he is discharged to help with radiation planning. All of his questions were answered. The patient advised if I can be of further assistance to please let me know, otherwise we will proceed accordingly as above. Patient agreed to follow recommendations and receive xrt for cure in combination with chemo. Dr. Lofton, thank you much for referring this patient and allowing me to participate in his care. Should you have any further questions or concerns, please do not hesitate to contact me. Blaine Walden MD Radiation Oncologist [facility] ANDRE/FED[facility] /3:42 PM 9:13 AM SIL[facility]
[2016-05-07] MEDS: ONDANSETRON HCL 4 MG/2 ML VIAL IVP PRN ×2 (12:14→18:03)
[2016-05-07] MEDS: MORPHINE SULFATE 4 MG/ML INJ IV PRN (22:12)
[2016-05-07] MEDS: METOCLOPRAMIDE HCL 10 MG/2 ML VIAL IV PUSH PRN (22:12)
[2016-05-07] MEDS ORDERED: DOCUSATE SODIUM 100 MG CAP PO ONE (22:15)
[2016-05-08] VITALS (9 sets, daily range): BP systolic 120–135; BP diastolic 70–87; PULSE 71–82; RESP 16–20; TEMP 99–99.8; O2SAT 95–99
[2016-05-08] MEDS: D5-1/2 NS + KCL 20 MEQ INJ 1,000 ML IV SCH (01:43)
[2016-05-08] MEDS: SODIUM CHLORIDE 0.9% FLUSH 5 ML FLUSH FLUSH SCH ×2 (08:02→21:42)
[2016-05-08] MEDS: DOCUSATE SODIUM 100 MG CAP PO SCH ×3 (08:10→17:15)
[2016-05-08] MEDS: MORPHINE SULFATE 4 MG/ML INJ IV PRN ×3 (08:11→21:42)
[2016-05-08 08:46] LABS: AUTOMATED NEUTROPHIL # 10.3 TH/MM3 (1.8-7.7); BASOPHIL % 0.3 % (0.0-2.0); EOSINOPHIL # 0.3 TH/MM3 (0-0.4); EOSINOPHIL % 2.1 % (0.0-4.0); HEMATOCRIT 36.9 % (39.0-51.0); HEMO FLAGS DIFF FINAL; LYMPH % 9.3 % (9.0-44.0); LYMPHOCYTE # 1.2 TH/MM3 (1.0-4.8); MEAN CELL VOLUME 90.2 FL (80.0-100.0); MEAN CORPUSCULAR HEMOGLOBIN 31.4 PG (27.0-34.0); MEAN CORPUSCULAR HGB CONC 34.8 % (32.0-36.0); MONO % 10.6 % (0.0-8.0); NEUT % 77.7 % (16.0-70.0); PLATELET COUNT 292 TH/MM3 (150-450); RED BLOOD COUNT 4.09 MIL/MM3 (4.50-5.90); RED CELL DISTRIBUTION WIDTH 13.3 % (11.6-17.2); WHITE BLOOD COUNT 13.2 TH/MM3 (4.0-11.0)
[2016-05-08 09:05] LABS: BICARBONATE 26.4 MEQ/L (21.0-32.0)
--- NOTE | 2016-05-08 13:52 | HHI.PR ---
Subjective Remarks Patient denies nausea or vomiting Sodium noted to be lower denies cp/sob Tolerating T piece stable vital signs Objective Vitals Vital Signs Date Time Temp Pulse Resp B/P Pulse Ox O2 Delivery O2 Flow Rate FiO2 05/08/16 11:50 99.6 78 20 130/78 99 05/08/16 09:46 96 T-piece 35 05/08/16 07:50 99.0 76 20 135/87 99 05/08/16 06:17 99.1 71 16 124/71 96 05/08/16 03:23 96 T-piece 35 05/08/16 00:58 99.3 76 16 130/77 99 05/07/16 20:00 98.5 9 16 125/80 98 05/07/16 18:39 97 Nasal Cannula 6.00 05/07/16 15:50 100.0 82 20 121/72 97 I/O 05/07/16 05/07/16 05/07/16 05/08/16 05/08/16 05/08/16 07:00 15:00 23:00 07:00 15:00 23:00 Intake Total 732 ml 964 ml 800 ml 950 ml Output Total 200 ml 300 ml 400 ml Balance 532 ml 664 ml 800 ml 550 ml Intake Oral 120 ml 150 ml IV Total 732 ml 844 ml 800 ml 800 ml Output Urine Total 200 ml 300 ml 400 ml # Bowel Movements 0 Result Diagram: 05/08/1680405/08/16804 Imaging Last Impressions Gastrostomy Tube Placement 05/06/16 0000 Signed Impressions: Service Date/Time: Friday, May 06, 2016 13:15 - CONCLUSION: Uncomplicated gastrostomy tube placement as above. Fabian Blackwood Jr., MD Chest X-Ray 05/05/16 0000 Signed Impressions: Service Date/Time: Thursday, May 05, 2016 09:10 - CONCLUSION: Tracheostomy well-positioned with no complication no pneumothorax. Francisco Javier Pink MD Chest CT 05/03/16 0000 Signed Impressions: Service Date/Time: Tuesday, May 03, 2016 11:33 - CONCLUSION: 1. Emphysema and right upper lobe scarring. Scarring is mildly nodular but still most likely benign. Six-month followup noncontrast chest CT recommended. 2. No lymphadenopathy. 3. Coronary artery calcification. John Mcdonnell MD Abdomen/Pelvis CT 05/03/16 0000 Signed Impressions: Service Date/Time: Tuesday, May 03, 2016 11:33 - CONCLUSION: 1. No malignancy or other acute abnormality seen within the abdomen or pelvis. 2. Diverticulosis of the colon without acute inflammatory changes. 3. Atherosclerotic aorta. No aneurysm. John Mcdonnell MD Neck CT 05/01/16 0000 Signed Impressions: Service Date/Time: April 13:51 - CONCLUSION: 1. Large mass involving the larynx measuring 3.5 x 2.0 cm causing significant compromise to the airway. No adenopathy observed. Malignancy is felt most likely. 2. Severe emphysematous changes. 3. Areas of probable scarring involving the right lung apex. This is nodular in appearance in one area that is partially visualized. I suggest a CT of the thorax to further evaluate. Fabian Blackwood Jr., MD Objective Remarks General: No acute distress. Trach. Heart: Regular rate and rhythm. No murmur. Lungs: Clear to auscultation bilaterally. No wheezes, rales, or rhonchi. Breathing is nonlabored. Abdomen: Soft, nontender, nondistended. PEG tube in place. Extremities: No lower extremity edema. No calf tenderness. Psych: Alert and oriented. Nonverbal, but answers questions by nodding or writing answers. Procedures 05/05/16 Laryngeal mass biopsy 05/05/16 tracheostomy Medications and IVs Current Medications Medications (Trade) Dose Ordered Sig/Darryl Route Start Time Stop Time Status Last Admin (NS Flush) 2 ml UNSCH PRN FLUSH 05/01/16 15:15 (NS Flush) 2 ml BID FLUSH 05/01/16 21:00 05/06/16 20:02 (Zofran Inj) 4 mg Q6H PRN IVP 05/01/16 15:15 05/07/16 18:03 (Morphine Inj) 2 mg Q3H PRN IV 05/01/16 15:15 05/08/16 08:11 (Narcan Inj) 0.4 mg UNSCH PRN IV 05/01/16 15:15 (Reglan Inj) 5 mg Q8H PRN IV PUSH 05/07/16 22:15 05/07/16 22:12 (Colace) 100 mg TID PO 05/08/16 09:00 05/08/16 12:32 Urinary Catheter: No Vascular Central Line Catheter: No A/P Problem List: (1) Laryngeal mass ICD Code: J38.7 Status: Acute Plan: Likely malignancy. Appreciate oncology, ENT, general surgery recommendations. S/P biopsy of the mass. S/P tracheostomy. Await pathology. Radiation oncology consulted for concurrent chemo/radiation. PEG tube placed . Dietary consult requested. Patient is now on regular diet as per surgery Speech therapy following - advised regular diet. (2) COPD (chronic obstructive pulmonary disease) ICD Code: J44.9 Status: Chronic Plan: Continue supplemental oxygen. Bronchodilators as needed. (3) Tobacco abuse ICD Code: Z72.0 Status: Chronic Plan: Advised smoking cessation (4) Nausea & vomiting ICD Code: R11.2 Status: Resolved Plan: resolved. Continue Zofran as needed. (5) Hyponatremia ICD Code: E87.1 Status: Chronic Plan: Likely SIADH due to nausea. Discontinue D5 1/2 ns. Continue to monitor sodium. Problem Qualifiers (1) COPD (chronic obstructive pulmonary disease): Qualified Code: J42 - Chronic bronchitis, unspecified chronic bronchitis type Tobi Salas MD May 08, 2016 13:52 Tobi Salas MD May 08, 2016 13:52
--- NOTE | 2016-05-08 17:17 | PD.ONC.PN ---
Subjective Subjective Remarks Patient was seen and examined. He denies acute complaints, he tells me he has been coughing and producing phlegm, the phlegm has on occasion clogged up his tracheostomy. He underwent feeding tube placement yesterday. The results of the vocal cord biopsy were discussed. Objective Data Date Time Temp Pulse Resp B/P Pulse Ox O2 Delivery O2 Flow Rate FiO2 05/08/16 11:50 99.6 78 20 130/78 99 05/08/16 09:46 96 T-piece 35 05/08/16 07:50 99.0 76 20 135/87 99 05/08/16 06:17 99.1 71 16 124/71 96 05/08/16 03:23 96 T-piece 35 05/08/16 00:58 99.3 76 16 130/77 99 05/07/16 20:00 98.5 9 16 125/80 98 05/07/16 18:39 97 Nasal Cannula 6.00 05/08/16 05/08/16 05/08/16 07:00 15:00 23:00 Intake Total 950 ml Output Total 400 ml Balance 550 ml Result Diagram: 05/08/16 0805 05/08/16 0805 Laboratory Results Laboratory Tests Test 05/08/16 08:05 White Blood Count 13.2 TH/MM3 Red Blood Count 4.09 MIL/MM3 Hemoglobin 12.8 GM/DL Hematocrit 36.9 % Mean Corpuscular Volume 90.2 FL Mean Corpuscular Hemoglobin 31.4 PG Mean Corpuscular Hemoglobin 34.8 % Concent Red Cell Distribution Width 13.3 % Platelet Count 292 TH/MM3 Mean Platelet Volume 7.1 FL Neutrophils (%) (Auto) 77.7 % Lymphocytes (%) (Auto) 9.3 % Monocytes (%) (Auto) 10.6 % Eosinophils (%) (Auto) 2.1 % Basophils (%) (Auto) 0.3 % Neutrophils # (Auto) 10.3 TH/MM3 Lymphocytes # (Auto) 1.2 TH/MM3 Monocytes # (Auto) 1.4 TH/MM3 Eosinophils # (Auto) 0.3 TH/MM3 Basophils # (Auto) 0.0 TH/MM3 CBC Comment DIFF FINAL Differential Comment Sodium Level 133 MEQ/L Potassium Level 4.0 MEQ/L Chloride Level 101 MEQ/L Carbon Dioxide Level 26.4 MEQ/L Anion Gap 6 MEQ/L Blood Urea Nitrogen 8 MG/DL Creatinine 0.43 MG/DL Estimat Glomerular Filtration 203 ML/MIN Rate Random Glucose 111 MG/DL Calcium Level 8.4 MG/DL Administered Medications Medications (Trade) Dose Ordered Sig/Darryl Route PRN Reason Start Time Stop Time Status Last Admin Dose Admin IV Flush (NS Flush) 2 ml BID FLUSH 05/01/16 21:00 05/06/16 20:02 Ondansetron HCl (Zofran Inj) 4 mg Q6H PRN IVP NAUSEA OR VOMITING 05/01/16 15:15 05/07/16 18:03 Morphine Sulfate (Morphine Inj) 2 mg Q3H PRN IV Pain 3-5; if unable to take PO 05/01/16 15:15 05/08/16 08:11 Metoclopramide HCl (Reglan Inj) 5 mg Q8H PRN IV PUSH NAUSEA 05/07/16 22:15 05/07/16 22:12 Docusate Sodium (Colace) 100 mg TID PO 05/08/16 09:00 05/08/16 12:32 Objective Remarks GENERAL: Middle-aged male, sitting up in bed, interval placement of tracheostomy. SKIN: Warm and dry. HEAD: Normocephalic. EYES: No scleral icterus. No injection or drainage. NECK: Supple, trachea midline. No JVD or lymphadenopathy. LYMPHATIC: No adenopathy. CARDIOVASCULAR: Regular rate and rhythm without murmurs. RESPIRATORY: Prolonged expiratory phase, scattered rhonchi. GASTROINTESTINAL: Abdomen soft, non-tender, nondistended. Feeding tube placement. EXTREMITIES: No cyanosis, or edema. MUSCULOSKELETAL: Adequate muscle tone. NEUROLOGICAL: No obvious focal deficit. Awake, alert, and oriented x3. PSYCHIATRIC: Appropriate mood and affect; insight and judgment normal. Assessment/Plan Assessment 61y/o male with laryngeal mass, suspected primary malignancy of the larynx. +7-month history of progressive pain/soreness of the throat. two-month history of progressive difficulty breathing on inhalation. +hoarse voice --no difficulty swallowing or hemoptysis or hematemesis. --flexible laryngoscopy at bedside showed exophytic mass centered along the left false vocal cord was appreciated w/ submucosal extension. Plan 1. 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 Biopsy results reviewed, severe inflammation, dysplasia and carcinoma in situ reported. ENT surgeons operative note describes a large exophytic mass, ENT surgeon tells me he obtained large and deep biopsies. I will discuss the case with our pathologist to see if they may be any minute foci of invasive disease. The patient has now been evaluated by radiation oncology and treatment planning is underway. Radiation however will not be initiated until pathologic confirmation of invasive squamous cell carcinoma. The oncology service will continue following with you. Urban Lofton MD May 08, 2016 17:17
[2016-05-09] VITALS (8 sets, daily range): BP systolic 101–122; BP diastolic 65–78; PULSE 75–90; RESP 16–18; TEMP 97.2–99.9; O2SAT 95–98
[2016-05-09] MEDS: MORPHINE SULFATE 4 MG/ML INJ IV PRN ×4 (03:34→20:51)
[2016-05-09 07:52] LABS: AUTOMATED NEUTROPHIL # 8.2 TH/MM3 (1.8-7.7); BASOPHIL # 0.1 TH/MM3 (0-0.2); BASOPHIL % 0.6 % (0.0-2.0); EOSINOPHIL # 0.4 TH/MM3 (0-0.4); EOSINOPHIL % 3.8 % (0.0-4.0); HEMATOCRIT 38.3 % (39.0-51.0); HEMO FLAGS DIFF FINAL; LYMPH % 13.1 % (9.0-44.0); LYMPHOCYTE # 1.5 TH/MM3 (1.0-4.8); MEAN CELL VOLUME 91.5 FL (80.0-100.0); MEAN CORPUSCULAR HGB CONC 33.8 % (32.0-36.0); MONO % 11.7 % (0.0-8.0); NEUT % 70.8 % (16.0-70.0); PLATELET COUNT 306 TH/MM3 (150-450); RED BLOOD COUNT 4.18 MIL/MM3 (4.50-5.90); RED CELL DISTRIBUTION WIDTH 13.4 % (11.6-17.2); WHITE BLOOD COUNT 11.5 TH/MM3 (4.0-11.0)
[2016-05-09 08:07] LABS: ALT (GPT) 21 U/L (12-78); ANION GAP 6 MEQ/L (5-15); AST (GOT) 13 U/L (15-37); BICARBONATE 31.1 MEQ/L (21.0-32.0); BLOOD UREA NITROGEN 11 MG/DL (7-18); CHLORIDE 97 MEQ/L (98-107); GLOMERULAR FILTRATION RATE 138 ML/MIN (>89); POTASSIUM 4.2 MEQ/L (3.5-5.1); SODIUM (NA) 134 MEQ/L (136-145)
[2016-05-09 08:09] LABS: ALKALINE PHOSPHATASE 77 U/L (45-117); TOTAL BILIRUBIN ADULT 0.7 MG/DL (0.2-1.0)
[2016-05-09] MEDS: SODIUM CHLORIDE 0.9% FLUSH 5 ML FLUSH FLUSH SCH ×2 (09:18→20:52)
[2016-05-09] MEDS: DOCUSATE SODIUM 100 MG CAP PO SCH ×3 (09:18→17:05)
[2016-05-09] MEDS: NICOTINE 7 MG/24 HR PATCH TD SCH (15:23)
--- NOTE | 2016-05-09 16:58 | HHI.PR ---
Subjective Remarks Denies further nausea or vomiting coughing somewhat denies chest pain/sob had a temp of 99.9 Objective Vitals Vital Signs Date Time Temp Pulse Resp B/P Pulse Ox O2 Delivery O2 Flow Rate FiO2 05/09/16 16:00 99.4 83 18 116/78 97 05/09/16 12:00 99.9 87 18 120/66 98 05/09/16 09:25 98 T-piece 35 05/09/16 08:00 99.1 78 18 101/73 97 05/09/16 04:00 98.3 75 16 116/73 96 05/09/16 01:42 96 T-piece 5.00 35 05/09/16 00:11 97.2 86 16 122/65 97 05/08/16 20:58 99.8 79 18 123/81 95 05/08/16 17:48 99 T-piece 6.00 35 I/O 05/08/16 05/08/16 05/08/16 05/09/16 05/09/16 05/09/16 07:00 15:00 23:00 07:00 15:00 23:00 Intake Total 950 ml 1080 ml 240 ml 50 ml 480 ml Output Total 400 ml 150 ml 500 ml 200 ml Balance 550 ml 930 ml 240 ml -450 ml 280 ml Intake Oral 150 ml 1080 ml 240 ml 50 ml 480 ml IV Total 800 ml Output Urine Total 400 ml 150 ml 500 ml 200 ml # Voids 0 # Bowel Movements 0 0 0 0 Result Diagram: 05/09/16 0642 05/09/16 0642 Imaging Last Impressions Gastrostomy Tube Placement 05/06/16 0000 Signed Impressions: Service Date/Time: Friday, May 06, 2016 13:15 - CONCLUSION: Uncomplicated gastrostomy tube placement as above. Fabian Blackwood Jr., MD Chest X-Ray 05/05/16 0000 Signed Impressions: Service Date/Time: Thursday, May 05, 2016 09:10 - CONCLUSION: Tracheostomy well-positioned with no complication no pneumothorax. Francisco Javier Pink MD Chest CT 05/03/16 0000 Signed Impressions: Service Date/Time: Tuesday, May 03, 2016 11:33 - CONCLUSION: 1. Emphysema and right upper lobe scarring. Scarring is mildly nodular but still most likely benign. Six-month followup noncontrast chest CT recommended. 2. No lymphadenopathy. 3. Coronary artery calcification. John Mcdonnell MD Abdomen/Pelvis CT 05/03/16 0000 Signed Impressions: Service Date/Time: Tuesday, May 03, 2016 11:33 - CONCLUSION: 1. No malignancy or other acute abnormality seen within the abdomen or pelvis. 2. Diverticulosis of the colon without acute inflammatory changes. 3. Atherosclerotic aorta. No aneurysm. John Mcdonnell MD Neck CT 05/01/16 0000 Signed Impressions: Service Date/Time: April 13:51 - CONCLUSION: 1. Large mass involving the larynx measuring 3.5 x 2.0 cm causing significant compromise to the airway. No adenopathy observed. Malignancy is felt most likely. 2. Severe emphysematous changes. 3. Areas of probable scarring involving the right lung apex. This is nodular in appearance in one area that is partially visualized. I suggest a CT of the thorax to further evaluate. Fabian Blackwood Jr., MD Objective Remarks General: No acute distress. Trach. Heart: Regular rate and rhythm. No murmur. Lungs: Clear to auscultation bilaterally. No wheezes, rales, or rhonchi. Breathing is nonlabored. Abdomen: Soft, nontender, nondistended. PEG tube in place. Extremities: No lower extremity edema. No calf tenderness. Psych: Alert and oriented. Nonverbal, but answers questions by nodding or writing answers. Procedures 05/05/16 Laryngeal mass biopsy 05/05/16 tracheostomy Medications and IVs Current Medications Medications (Trade) Dose Ordered Sig/Darryl Route Start Time Stop Time Status Last Admin (NS Flush) 2 ml UNSCH PRN FLUSH 05/01/16 15:15 (NS Flush) 2 ml BID FLUSH 05/01/16 21:00 05/09/16 09:18 (Zofran Inj) 4 mg Q6H PRN IVP 05/01/16 15:15 05/07/16 18:03 (Morphine Inj) 2 mg Q3H PRN IV 05/01/16 15:15 05/09/16 15:23 (Narcan Inj) 0.4 mg UNSCH PRN IV 05/01/16 15:15 (Reglan Inj) 5 mg Q8H PRN IV PUSH 05/07/16 22:15 05/07/16 22:12 (Colace) 100 mg TID PO 05/08/16 09:00 05/09/16 17:05 (Habitrol 7 Mg Patch.24 Hr) 1 patch DAILY TD 05/09/16 16:00 05/09/16 15:23 Miscellaneous Information 1 HS TD 05/09/16 21:00 Urinary Catheter: No Vascular Central Line Catheter: No A/P Problem List: (1) Laryngeal mass ICD Code: J38.7 Status: Acute Plan: Likely malignancy. Appreciate oncology, ENT, general surgery recommendations. S/P biopsy of the mass. S/P tracheostomy. Await pathology. Radiation oncology consulted for concurrent chemo/radiation. PEG tube placed . Dietary consult requested. Patient is now on regular diet as per surgery Speech therapy following - advised regular diet. (2) COPD (chronic obstructive pulmonary disease) ICD Code: J44.9 Status: Chronic Plan: Continue supplemental oxygen. Bronchodilators as needed. (3) Tobacco abuse ICD Code: Z72.0 Status: Chronic Plan: Advised smoking cessation (4) Nausea & vomiting ICD Code: R11.2 Status: Resolved Plan: resolved. Continue Zofran as needed. (5) Hyponatremia ICD Code: E87.1 Status: Chronic Plan: Likely SIADH due to nausea. Discontinue D5 1/2 ns. Continue to monitor sodium. sodium improving - now 134 - continue to monitor bmp Problem Qualifiers (1) COPD (chronic obstructive pulmonary disease): Qualified Code: J42 - Chronic bronchitis, unspecified chronic bronchitis type Tobi Salas MD May 09, 2016 16:58
[2016-05-09] MEDS: REMOVE OLD NICODERM (NICOTINE) PATCH TD SCH (20:52)
[2016-05-10] VITALS (8 sets, daily range): BP systolic 108–131; BP diastolic 52–77; PULSE 71–87; RESP 16–19; TEMP 98.7–100.2; O2SAT 96–99
[2016-05-10] MEDS: MORPHINE SULFATE 4 MG/ML INJ IV PRN ×4 (03:56→22:09)
[2016-05-10 06:39] LABS: BICARBONATE 32.1 MEQ/L (21.0-32.0); POTASSIUM 4.1 MEQ/L (3.5-5.1)
[2016-05-10 07:13] LABS: HEMATOCRIT 37.9 % (39.0-51.0); MEAN CELL VOLUME 92.1 FL (80.0-100.0); MEAN CORPUSCULAR HEMOGLOBIN 31.1 PG (27.0-34.0); MEAN CORPUSCULAR HGB CONC 33.7 % (32.0-36.0); PLATELET COUNT 296 TH/MM3 (150-450); RED BLOOD COUNT 4.12 MIL/MM3 (4.50-5.90); RED CELL DISTRIBUTION WIDTH 13.2 % (11.6-17.2); REVIEW FLAG FINAL; WHITE BLOOD COUNT 10.2 TH/MM3 (4.0-11.0)
[2016-05-10] MEDS: NICOTINE 7 MG/24 HR PATCH TD SCH (09:37)
[2016-05-10] MEDS: DOCUSATE SODIUM 100 MG CAP PO SCH ×3 (09:39→17:50)
[2016-05-10] MEDS: SODIUM CHLORIDE 0.9% FLUSH 5 ML FLUSH FLUSH SCH ×2 (09:39→21:00)
--- NOTE | 2016-05-10 11:36 | HHI.PR ---
Subjective Remarks Patient had a low-grade fever with a MAXIMUM TEMPERATURE of 100.2F. Patient states that his coughing more and bringing up phlegm As per RN the patient is rhonchorous. Patient denies chest pain, diarrhea, abdominal pain Otherwise vital signs stable. Patient on T piece, satting 99%. Objective Vitals Vital Signs Date Time Temp Pulse Resp B/P Pulse Ox O2 Delivery O2 Flow Rate FiO2 05/10/16 08:52 99 T-piece 6.00 28 05/10/16 08:00 99.0 76 16 110/52 96 05/10/16 04:00 98.7 71 19 131/77 99 05/10/16 00:00 100.2 84 18 112/73 99 05/09/16 20:00 99.4 90 18 120/73 95 05/09/16 16:00 99.4 83 18 116/78 97 05/09/16 12:00 99.9 87 18 120/66 98 I/O 05/09/16 05/09/16 05/09/16 05/10/16 05/10/16 05/10/16 07:00 15:00 23:00 07:00 15:00 23:00 Intake Total 50 ml 480 ml 480 ml 240 ml Output Total 500 ml 200 ml Balance -450 ml 280 ml 480 ml 240 ml Intake Oral 50 ml 480 ml 480 ml 240 ml Output Urine Total 500 ml 200 ml # Voids 2 1 # Bowel Movements 0 1 Result Diagram: 05/10/16 0525 05/10/16 0525 Imaging Last Impressions Gastrostomy Tube Placement 05/06/16 0000 Signed Impressions: Service Date/Time: Friday, May 06, 2016 13:15 - CONCLUSION: Uncomplicated gastrostomy tube placement as above. Fabian Blackwood Jr., MD Chest X-Ray 05/05/16 0000 Signed Impressions: Service Date/Time: Thursday, May 05, 2016 09:10 - CONCLUSION: Tracheostomy well-positioned with no complication no pneumothorax. Francisco Javier Pink MD Chest CT 05/03/16 0000 Signed Impressions: Service Date/Time: Tuesday, May 03, 2016 11:33 - CONCLUSION: 1. Emphysema and right upper lobe scarring. Scarring is mildly nodular but still most likely benign. Six-month followup noncontrast chest CT recommended. 2. No lymphadenopathy. 3. Coronary artery calcification. John Mcdonnell MD Abdomen/Pelvis CT 05/03/16 0000 Signed Impressions: Service Date/Time: Tuesday, May 03, 2016 11:33 - CONCLUSION: 1. No malignancy or other acute abnormality seen within the abdomen or pelvis. 2. Diverticulosis of the colon without acute inflammatory changes. 3. Atherosclerotic aorta. No aneurysm. John Mcdonnell MD Neck CT 05/01/16 0000 Signed Impressions: Service Date/Time: April 13:51 - CONCLUSION: 1. Large mass involving the larynx measuring 3.5 x 2.0 cm causing significant compromise to the airway. No adenopathy observed. Malignancy is felt most likely. 2. Severe emphysematous changes. 3. Areas of probable scarring involving the right lung apex. This is nodular in appearance in one area that is partially visualized. I suggest a CT of the thorax to further evaluate. Fabian Blackwood Jr., MD Objective Remarks General: No acute distress. Trach. Heart: Regular rate and rhythm. No murmur. Lungs: Clear to auscultation bilaterally. No wheezes, rales, or rhonchi. Breathing is nonlabored. Abdomen: Soft, nontender, nondistended. PEG tube in place. Extremities: No lower extremity edema. No calf tenderness. Psych: Alert and oriented. Nonverbal, but answers questions by nodding or writing answers. Procedures 05/05/16 Laryngeal mass biopsy 05/05/16 tracheostomy Medications and IVs Current Medications Medications (Trade) Dose Ordered Sig/Darryl Route Start Time Stop Time Status Last Admin (NS Flush) 2 ml UNSCH PRN FLUSH 05/01/16 15:15 (NS Flush) 2 ml BID FLUSH 05/01/16 21:00 05/10/16 09:39 (Zofran Inj) 4 mg Q6H PRN IVP 05/01/16 15:15 05/07/16 18:03 (Morphine Inj) 2 mg Q3H PRN IV 05/01/16 15:15 05/10/16 09:41 (Narcan Inj) 0.4 mg UNSCH PRN IV 05/01/16 15:15 (Reglan Inj) 5 mg Q8H PRN IV PUSH 05/07/16 22:15 05/07/16 22:12 (Colace) 100 mg TID PO 05/08/16 09:00 05/09/16 17:05 (Habitrol 7 Mg Patch.24 Hr) 1 patch DAILY TD 05/09/16 16:00 05/10/16 09:37 Miscellaneous Information 1 HS TD 05/09/16 21:00 05/09/16 20:52 Urinary Catheter: No Vascular Central Line Catheter: No A/P Problem List: (1) Laryngeal mass ICD Code: J38.7 Status: Acute (2) COPD (chronic obstructive pulmonary disease) ICD Code: J44.9 Status: Chronic (3) Tobacco abuse ICD Code: Z72.0 Status: Chronic (4) Nausea & vomiting ICD Code: R11.2 Status: Resolved (5) Hyponatremia ICD Code: E87.1 Status: Chronic (6) Low grade fever ICD Code: R50.9 Status: Acute Plan: Patient noted to be coughing more often and bringing up phlegm. I will check sputum culture, chest x-ray, and urinalysis. Further recommendations following chest x-ray and other findings. Assessment and Plan (1) Laryngeal mass Plan: Likely malignancy. Appreciate oncology, ENT, general surgery recommendations. S/P biopsy of the mass. S/P tracheostomy. Await pathology. Radiation oncology consulted for concurrent chemo/radiation. PEG tube placed . Dietary consult requested. Patient is now on regular diet as per surgery Speech therapy following - advised regular diet. (2) COPD (chronic obstructive pulmonary disease) Plan: Continue supplemental oxygen. Bronchodilators as needed. (3) Tobacco abuse Plan: Advised smoking cessation (4) Nausea & vomiting Plan: resolved. Continue Zofran as needed. (5) Hyponatremia Plan: Likely SIADH due to nausea. Discontinue D5 1/2 ns. Continue to monitor sodium. resolved. sodium 137 - continue to monitor BMP. Problem Qualifiers (1) COPD (chronic obstructive pulmonary disease): Qualified Code: J42 - Chronic bronchitis, unspecified chronic bronchitis type Tobi Salas MD May 10, 2016 11:36
--- NOTE | 2016-05-10 12:49 | RADRPT ---
EXAM DATE/TIME: 05/10/2016 11:23 [facility] COMPARISON: CHEST EXPIRATION ONLY, May 05, 2016, 9:10. CHEST PA & LAT, September 01, 2012, 13:32. INDICATIONS : Fever. MEDICAL HISTORY : Chronic obstructive pulmonary disease. Laryngeal mass SURGICAL HISTORY : Tonsillectomy. Trach. ENCOUNTER: Initial ACUITY: 1 day PAIN SCORE: 0/10 LOCATION: Bilateral chest FINDINGS: PA and lateral views of the chest. Tracheostomy tube in place. Linear opacity at the lung bases likel y representing atelectasis. The lungs are otherwise clear. Cardiomediastinal silhouette within normal limits. No evidence of pleural effusion or pneumothorax. CONCLUSION: Atelectasis at the lung bases. No other acute cardiopulmonary disease identified. Suhail Calderon MD on May 10, 2016 at 12:46 Board Certified Radiologist. This report was verified electronically.
[2016-05-10 18:33] LABS: BLOOD, URINE NEG (NEG); COMMENT (UR) CULT NOT INDICATED; CULTURE IF INDICATED CULT NOT INDICATED; GLUCOSE,URINE NEG (NEG); KETONE, URINE NEG (NEG); MUCUS URINE FEW /lpf (OCC); NITRITE,URINE NEG (NEG); URINE COLOR YELLOW (YELLW/STRAW)
[2016-05-10] MEDS: REMOVE OLD NICODERM (NICOTINE) PATCH TD SCH (21:00)
[2016-05-10] MEDS: RESP: ALBUTEROL 2.5 MG/IPRATROPIUM 0.5 MG NEB (PRN) NEB (23:24)
[2016-05-11] VITALS (8 sets, daily range): BP systolic 120–129; BP diastolic 70–83; PULSE 75–89; RESP 16–19; TEMP 99–100.8; O2SAT 95–98
[2016-05-11] MEDS: MORPHINE SULFATE 4 MG/ML INJ IV PRN ×4 (05:15→21:13)
[2016-05-11] MEDS: NICOTINE 7 MG/24 HR PATCH TD SCH (08:51)
[2016-05-11] MEDS: DOCUSATE SODIUM 100 MG CAP PO SCH ×3 (08:51→17:05)
[2016-05-11] MEDS: SODIUM CHLORIDE 0.9% FLUSH 5 ML FLUSH FLUSH SCH ×2 (08:53→21:00)
[2016-05-11 10:40] LABS: AUTOMATED NEUTROPHIL # 8.9 TH/MM3 (1.8-7.7); BASOPHIL # 0.1 TH/MM3 (0-0.2); BASOPHIL % 0.5 % (0.0-2.0); EOSINOPHIL # 0.4 TH/MM3 (0-0.4); EOSINOPHIL % 3.1 % (0.0-4.0); HEMO FLAGS DIFF FINAL; LYMPH % 13.2 % (9.0-44.0); LYMPHOCYTE # 1.6 TH/MM3 (1.0-4.8); MEAN CELL VOLUME 91.6 FL (80.0-100.0); MEAN CORPUSCULAR HEMOGLOBIN 30.4 PG (27.0-34.0); MEAN CORPUSCULAR HGB CONC 33.1 % (32.0-36.0); MONO % 11.3 % (0.0-8.0); NEUT % 71.9 % (16.0-70.0); PLATELET COUNT 323 TH/MM3 (150-450); RED BLOOD COUNT 4.04 MIL/MM3 (4.50-5.90); RED CELL DISTRIBUTION WIDTH 13.3 % (11.6-17.2); WHITE BLOOD COUNT 12.4 TH/MM3 (4.0-11.0)
[2016-05-11 11:07] LABS: ALKALINE PHOSPHATASE 72 U/L (45-117); ALT (GPT) 29 U/L (12-78); ANION GAP 10 MEQ/L (5-15); AST (GOT) 17 U/L (15-37); BICARBONATE 28.5 MEQ/L (21.0-32.0); BLOOD UREA NITROGEN 11 MG/DL (7-18); CHLORIDE 98 MEQ/L (98-107); GLOMERULAR FILTRATION RATE 174 ML/MIN (>89); MAGNESIUM 2.1 MG/DL (1.5-2.5); POTASSIUM 3.9 MEQ/L (3.5-5.1); SODIUM (NA) 136 MEQ/L (136-145); TOTAL BILIRUBIN ADULT 0.5 MG/DL (0.2-1.0)
[2016-05-11] MEDS ORDERED: Vancomycin Consult Pharmacy 1 EA OTHER SCH (17:00)
[2016-05-11] MEDS: CEFEPIME INJ 1,000 MG in SODIUM CHLORIDE 0.9% INJ 100 ML IV SCH (17:11)
[2016-05-11] MEDS: REMOVE OLD NICODERM (NICOTINE) PATCH TD SCH (21:00)
[2016-05-11] MEDS: BENZONATATE 100 MG CAP PO PRN (21:40)
[2016-05-11] MEDS: ACETAMINOPHEN 325 MG TAB PO PRN (21:40)
[2016-05-11] MEDS: guaiFENesin E.R. 600 MG TAB PO SCH (21:40)
[2016-05-11] MEDS: VANCOMYCIN INJ 1,000 MG in SODIUM CHLOR 0.9% 250 ML INJ 250 ML IV SCH (21:41)
--- NOTE | 2016-05-11 23:18 | HHI.PR ---
Subjective Remarks Deferred entry - patient seen early at 4:40 pm as per RN patient having increased secretions suctioned through PG tube having low grade fevers Patient denies cp denies diarrhea through writting he told me that cough seems to be worst in the morning and at night. Objective Vitals Vital Signs Date Time Temp Pulse Resp B/P Pulse Ox O2 Delivery O2 Flow Rate FiO2 05/11/16 22:44 97 T-piece 6.00 28 05/11/16 20:00 100.8 89 19 121/71 95 05/11/16 16:00 100.5 83 16 120/72 98 05/11/16 12:00 100.2 79 16 122/83 95 05/11/16 11:06 98 T-piece 6.00 28 05/11/16 08:00 99.6 77 16 124/73 96 05/11/16 04:00 99.0 75 18 124/70 96 05/11/16 00:15 99.0 80 18 129/ 96 05/10/16 23:20 98 T-piece I/O 05/10/16 05/10/16 05/10/16 05/11/16 05/11/16 05/11/16 07:00 15:00 23:00 07:00 15:00 23:00 Intake Total 240 ml 720 ml Balance 240 ml 720 ml Intake Oral 240 ml 720 ml # Voids 1 4 3 # Bowel Movements 1 Result Diagram: 05/11/1626 05/11/16 0924 Imaging Last Impressions Chest X-Ray 05/10/16 0000 Signed Impressions: Service Date/Time: Tuesday, May 10, 2016 11:23 - CONCLUSION: Atelectasis at the lung bases. No other acute cardiopulmonary disease identified. Suhail Calderon MD Gastrostomy Tube Placement 05/06/16 0000 Signed Impressions: Service Date/Time: Friday, May 06, 2016 13:15 - CONCLUSION: Uncomplicated gastrostomy tube placement as above. Fabian Blackwood Jr., MD Chest CT 05/03/16 0000 Signed Impressions: Service Date/Time: Tuesday, May 03, 2016 11:33 - CONCLUSION: 1. Emphysema and right upper lobe scarring. Scarring is mildly nodular but still most likely benign. Six-month followup noncontrast chest CT recommended. 2. No lymphadenopathy. 3. Coronary artery calcification. John Mcdonnell MD Abdomen/Pelvis CT 05/03/16 0000 Signed Impressions: Service Date/Time: Tuesday, May 03, 2016 11:33 - CONCLUSION: 1. No malignancy or other acute abnormality seen within the abdomen or pelvis. 2. Diverticulosis of the colon without acute inflammatory changes. 3. Atherosclerotic aorta. No aneurysm. John Mcdonnell MD Neck CT 05/01/16 0000 Signed Impressions: Service Date/Time: April 13:51 - CONCLUSION: 1. Large mass involving the larynx measuring 3.5 x 2.0 cm causing significant compromise to the airway. No adenopathy observed. Malignancy is felt most likely. 2. Severe emphysematous changes. 3. Areas of probable scarring involving the right lung apex. This is nodular in appearance in one area that is partially visualized. I suggest a CT of the thorax to further evaluate. Fabian Blackwood Jr., MD Objective Remarks General: No acute distress. Trach. Heart: Regular rate and rhythm. No murmur. Lungs: Clear to auscultation bilaterally. No wheezes, rales, or rhonchi. Breathing is nonlabored. Abdomen: Soft, nontender, nondistended. PEG tube in place - C/D/I Extremities: No lower extremity edema. No calf tenderness. Psych: Alert and oriented. Nonverbal, but answers questions by nodding or writing answers. Procedures 05/05/16 Laryngeal mass biopsy 05/05/16 tracheostomy Medications and IVs Current Medications Medications (Trade) Dose Ordered Sig/Darryl Route Start Time Stop Time Status Last Admin (NS Flush) 2 ml UNSCH PRN FLUSH 05/01/16 15:15 (NS Flush) 2 ml BID FLUSH 05/01/16 21:00 05/11/16 21:00 (Zofran Inj) 4 mg Q6H PRN IVP 05/01/16 15:15 05/07/16 18:03 (Morphine Inj) 2 mg Q3H PRN IV 05/01/16 15:15 05/11/16 21:13 (Narcan Inj) 0.4 mg UNSCH PRN IV 05/01/16 15:15 (Reglan Inj) 5 mg Q8H PRN IV PUSH 05/07/16 22:15 05/07/16 22:12 (Colace) 100 mg TID PO 05/08/16 09:00 05/11/16 17:05 (Habitrol 7 Mg Patch.24 Hr) 1 patch DAILY TD 05/09/16 16:00 05/11/16 08:51 Miscellaneous Information 1 1 HS TD 05/09/16 21:00 05/11/16 21:00 Cefepime HCl 1000 mg/Sodium Chloride 100 ml @ 200 mls/hr Q8H IV 05/11/16 18:00 05/11/16 17:11 Vancomycin HCl 1000 mg/Sodium Chloride 250 ml @ 250 mls/hr Q8H IV 05/11/16 20:00 05/11/16 21:41 (Vancomycin Consult Pharmacy) 0 ml @ 0 mls/hr UNSCH OTHER 05/11/16 17:00 (Robitussin Dm 200-20 Mg/10 ml Liq) 10 ml Q6H PRN PO 05/11/16 17:00 Miscellaneous Information SPECIFIC LAB TO BE DRAWN:[facility] TROUGH DATE TO... ONCE ONCE XX 05/12/16 19:45 05/12/16 19:46 (Mucinex Er) 600 mg BID PO 05/11/16 21:30 05/11/16 21:40 (Tessalon) 200 mg TID PRN PO 05/11/16 21:30 05/11/16 21:40 (Tylenol) 650 mg Q6HR PRN PO 05/11/16 21:30 05/11/16 21:40 Urinary Catheter: No Vascular Central Line Catheter: No A/P Problem List: (1) Laryngeal mass ICD Code: J38.7 Status: Acute (2) COPD (chronic obstructive pulmonary disease) ICD Code: J44.9 Status: Chronic (3) Tobacco abuse ICD Code: Z72.0 Status: Chronic (4) Nausea & vomiting ICD Code: R11.2 Status: Resolved (5) Hyponatremia ICD Code: E87.1 Status: Chronic (6) Low grade fever ICD Code: R50.9 Status: Acute Plan: Low grade fever likely due to lower respiratory infection/HCAP UA negative CXR reviewed by me reports atelectasis/infiltrates at the bases. There is still persistent cough with increased secretions aspirated from trach + low grade fever. I will start broad spectrum antibiotics. Continue to monitor vital signs. check blood cultures. (7) Leukocytosis ICD Code: D72.829 Status: Acute Plan: Could possibly due to infectious process. Continue to monitor CBC with diff. Assessment and Plan (1) Laryngeal mass Plan: Likely malignancy. Appreciate oncology, ENT, general surgery recommendations. S/P biopsy of the mass. S/P tracheostomy. Await pathology. Radiation oncology consulted for concurrent chemo/radiation. PEG tube placed . Dietary consult requested. Patient is now on regular diet as per surgery Speech therapy following - advised regular diet. (2) COPD (chronic obstructive pulmonary disease) Plan: Continue supplemental oxygen. Bronchodilators as needed. (3) Tobacco abuse Plan: Advised smoking cessation (4) Nausea & vomiting Plan: resolved. Continue Zofran as needed. (5) Hyponatremia Plan: Likely SIADH due to nausea. D5 / ns was discontinued. Continue to monitor sodium. resolved. sodium 137 - continue to monitor BMP. Discharge Planning Pending clinical improvement. Patient with low grade fevers. Problem Qualifiers (1) COPD (chronic obstructive pulmonary disease): Qualified Code: J42 - Chronic bronchitis, unspecified chronic bronchitis type (2) Leukocytosis: Qualified Code: D72.829 - Leukocytosis, unspecified type Tobi Salas MD May 11, 2016 23:18
[2016-05-12] VITALS (8 sets, daily range): BP systolic 115–148; BP diastolic 68–82; PULSE 77–106; RESP 16–19; TEMP 97.9–99.3; O2SAT 92–100
[2016-05-12] MEDS: MORPHINE SULFATE 4 MG/ML INJ IV PRN ×5 (03:16→21:08)
[2016-05-12] MEDS: CEFEPIME INJ 1,000 MG in SODIUM CHLORIDE 0.9% INJ 100 ML IV SCH ×3 (03:16→18:11)
[2016-05-12] MEDS: VANCOMYCIN INJ 1,000 MG in SODIUM CHLOR 0.9% 250 ML INJ 250 ML IV SCH ×3 (04:08→21:03)
[2016-05-12] MEDS: ENOXAPARIN SODIUM 40 MG/0.4 ML SYRINGE SQ SCH (05:55)
[2016-05-12] MEDS: BENZONATATE 100 MG CAP PO PRN ×2 (05:58→18:11)
--- NOTE | 2016-05-12 08:17 | PD.ONC.PN ---
Subjective Subjective Remarks Patient seen and examined, he reports coughing up thick yellowish phlegm. He had been having low-grade temperatures and was initiated on IV antibiotics with vancomycin and cefepime over the course of this weekend. Additionally, he has undergone radiation planning. Radiation will likely start in the upcoming days. 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 Objective Data Date Time Temp Pulse Resp B/P Pulse Ox O2 Delivery O2 Flow Rate FiO2 05/12/16 04:00 97.9 77 19 125/82 95 05/12/16 00:00 99.3 106 19 122/77 97 05/11/16 22:44 97 T-piece 6.00 28 05/11/16 20:00 100.8 89 19 121/71 95 05/11/16 16:00 100.5 83 16 120/72 98 05/11/16 12:00 100.2 79 16 122/83 95 05/11/16 11:06 98 T-piece 6.00 28 Result Diagram: 05/11/16 0926 05/11/16 0924 Laboratory Results Laboratory Tests Test 05/11/16 05/11/16 09:24 09:26 Sodium Level 136 MEQ/L Potassium Level 3.9 MEQ/L Chloride Level 98 MEQ/L Carbon Dioxide Level 28.5 MEQ/L Anion Gap 10 MEQ/L Blood Urea Nitrogen 11 MG/DL Creatinine 0.49 MG/DL Estimat Glomerular Filtration 174 ML/MIN Rate Random Glucose 98 MG/DL Calcium Level 8.7 MG/DL Phosphorus Level 3.4 MG/DL Magnesium Level 2.1 MG/DL Total Bilirubin 0.5 MG/DL Aspartate Amino Transf 17 U/L (AST/SGOT) Alanine Aminotransferase 29 U/L (ALT/SGPT) Alkaline Phosphatase 72 U/L Total Protein 6.8 GM/DL Albumin 2.8 GM/DL White Blood Count 12.4 TH/MM3 Red Blood Count 4.04 MIL/MM3 Hemoglobin 12.3 GM/DL Hematocrit 37.0 % Mean Corpuscular Volume 91.6 FL Mean Corpuscular Hemoglobin 30.4 PG Mean Corpuscular Hemoglobin 33.1 % Concent Red Cell Distribution Width 13.3 % Platelet Count 323 TH/MM3 Mean Platelet Volume 6.9 FL Neutrophils (%) (Auto) 71.9 % Lymphocytes (%) (Auto) 13.2 % Monocytes (%) (Auto) 11.3 % Eosinophils (%) (Auto) 3.1 % Basophils (%) (Auto) 0.5 % Neutrophils # (Auto) 8.9 TH/MM3 Lymphocytes # (Auto) 1.6 TH/MM3 Monocytes # (Auto) 1.4 TH/MM3 Eosinophils # (Auto) 0.4 TH/MM3 Basophils # (Auto) 0.1 TH/MM3 CBC Comment DIFF FINAL Differential Comment Culture Results Microbiology Date/Time Procedure Status Source Growth 05/10/16 13:15 Gram Stain - Final Resulted Sputum Endotracheal 05/10/16 13:15 Sputum Culture - Preliminary Resulted Sputum Endotracheal HEAVY GROWTH NORMAL RESPIRATORY ROMAN... 05/12/16 05:44 Aerobic Blood Culture Received Blood Peripheral Pending 05/12/16 05:44 Anaerobic Blood Culture Received Blood Peripheral Pending 05/12/16 05:50 Aerobic Blood Culture Received Blood Peripheral Pending 05/12/16 05:50 Anaerobic Blood Culture Received Blood Peripheral Pending Administered Medications Medications (Trade) Dose Ordered Sig/Darryl Route PRN Reason Start Time Stop Time Status Last Admin Dose Admin IV Flush (NS Flush) 2 ml BID FLUSH 05/01/16 21:00 05/11/16 21:00 Ondansetron HCl (Zofran Inj) 4 mg Q6H PRN IVP NAUSEA OR VOMITING 05/01/16 15:15 05/07/16 18:03 Morphine Sulfate (Morphine Inj) 2 mg Q3H PRN IV Pain 3-5; if unable to take PO 05/01/16 15:15 05/12/16 03:16 Metoclopramide HCl (Reglan Inj) 5 mg Q8H PRN IV PUSH NAUSEA 05/07/16 22:15 05/07/16 22:12 Docusate Sodium (Colace) 100 mg TID PO 05/08/16 09:00 05/11/16 17:05 Nicotine (Habitrol 7 Mg Patch.24 Hr) 1 patch DAILY TD 05/09/16 16:00 05/11/16 08:51 Miscellaneous Information 1 1 HS TD 05/09/16 21:00 05/11/16 21:00 Cefepime HCl 1000 mg/Sodium Chloride 100 ml @ 200 mls/hr Q8H IV 05/11/16 18:00 05/12/16 03:16 Vancomycin HCl/ Sodium Chloride (Vancomycin Inj/ NS 250 ml Inj) 250 ml @ 250 mls/hr Q8H IV 05/11/16 20:00 05/12/16 04:08 Guaifenesin (Mucinex Er) 600 mg BID PO 05/11/16 21:30 05/11/16 21:40 Benzonatate (Tessalon) 200 mg TID PRN PO cough interfering w/rest 05/11/16 21:30 05/12/16 05:58 Acetaminophen (Tylenol) 650 mg Q6HR PRN PO fever > 100.4 05/11/16 21:30 05/11/16 21:40 Enoxaparin Sodium (Lovenox Inj) 40 mg Q24H SQ 05/12/16 06:00 05/12/16 05:55 Objective Remarks GENERAL: Middle-aged male, sitting up in bed, interval placement of tracheostomy. He sitting up in bed, coughing frequently, producing copious amounts of thick yellow phlegm. SKIN: Warm and dry. HEAD: Normocephalic. EYES: No scleral icterus. No injection or drainage. NECK: Supple, trachea midline. No JVD or lymphadenopathy. LYMPHATIC: No adenopathy. CARDIOVASCULAR: Regular rate and rhythm without murmurs. RESPIRATORY: Prolonged expiratory phase, scattered rhonchi. GASTROINTESTINAL: Abdomen soft, non-tender, nondistended. Feeding tube placement. EXTREMITIES: No cyanosis, or edema. MUSCULOSKELETAL: Adequate muscle tone. NEUROLOGICAL: No obvious focal deficit. Awake, alert, and oriented x3. PSYCHIATRIC: Appropriate mood and affect; insight and judgment normal. 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 +7-month history of progressive pain/soreness of the throat. two-month history of progressive difficulty breathing on inhalation. +hoarse voice --no difficulty swallowing or hemoptysis or hematemesis. --flexible laryngoscopy at bedside showed exophytic mass centered along the left false vocal cord was appreciated w/ submucosal extension. Plan 1. Squamous cell carcinoma of the larynx: Clinically staged as T4 N0 M0 disease of the glottic larynx. Plan first-line concurrent chemoradiotherapy for organ preservation. If he does not respond to this he will be a candidate for salvage laryngectomy bony to be referred to a tertiary center for that procedure (if required). Due to his lack of insurance and trach care needed, this man will likely require most if not all of his definitive concurrent chemoradiotherapy in house. His chemotherapy will consist of weekly doses of cisplatin 40 mg for metered squared. CT chest and abdomen were reviewed, he has no definite evidence of metastatic disease. A pulmonary nodule was identified but this was morphologically consistent with an area of parenchymal scarring rather than a metastatic deposit. We will monitor this periodically for progression. The oncology service will continue following with you. Urban Lofton MD May 12, 2016 08:17
[2016-05-12] MEDS: DOCUSATE SODIUM 100 MG CAP PO SCH ×3 (09:15→18:11)
[2016-05-12] MEDS: SODIUM CHLORIDE 0.9% FLUSH 5 ML FLUSH FLUSH SCH ×2 (09:15→21:04)
[2016-05-12] MEDS: guaiFENesin E.R. 600 MG TAB PO SCH ×2 (09:15→21:03)
[2016-05-12] MEDS: PANTOPRAZOLE SOD 40 MG DELAYED RELEASE TAB PO SCH (09:15)
[2016-05-12] MEDS: NICOTINE 7 MG/24 HR PATCH TD SCH (09:15)
[2016-05-12 11:48] LABS: AUTOMATED NEUTROPHIL # 8.8 TH/MM3 (1.8-7.7); BASOPHIL # 0.1 TH/MM3 (0-0.2); BASOPHIL % 0.6 % (0.0-2.0); EOSINOPHIL # 0.5 TH/MM3 (0-0.4); EOSINOPHIL % 4.3 % (0.0-4.0); HEMO FLAGS DIFF FINAL; LYMPH % 13.2 % (9.0-44.0); LYMPHOCYTE # 1.6 TH/MM3 (1.0-4.8); MEAN CELL VOLUME 91.9 FL (80.0-100.0); MEAN CORPUSCULAR HEMOGLOBIN 30.6 PG (27.0-34.0); MEAN CORPUSCULAR HGB CONC 33.3 % (32.0-36.0); MONO % 9.6 % (0.0-8.0); NEUT % 72.3 % (16.0-70.0); PLATELET COUNT 349 TH/MM3 (150-450); RED BLOOD COUNT 4.13 MIL/MM3 (4.50-5.90); RED CELL DISTRIBUTION WIDTH 13.5 % (11.6-17.2); WHITE BLOOD COUNT 12.2 TH/MM3 (4.0-11.0)
--- NOTE | 2016-05-12 15:29 | HHI.PR ---
Subjective Remarks Patient still with low-grade fever with a MAXIMUM TEMPERATURE of 100.8 last night. Patient when asked if cough is better, he nods yes. Denies chest pain or shortness of breath Tolerating T piece Objective Vitals Vital Signs Date Time Temp Pulse Resp B/P Pulse Ox O2 Delivery O2 Flow Rate FiO2 05/12/16 13:53 18 05/12/16 12:00 99.1 78 18 129/79 92 05/12/16 09:24 96 T-piece 28 05/12/16 08:00 98.9 79 16 124/68 100 05/12/16 04:00 97.9 77 19 125/82 95 05/12/16 00:00 99.3 106 19 122/77 97 05/11/16 22:44 97 T-piece 6.00 28 05/11/16 20:00 100.8 89 19 121/71 95 05/11/16 16:00 100.5 83 16 120/72 98 I/O 05/11/16 05/11/16 05/11/16 05/12/16 05/12/16 05/12/16 07:00 15:00 23:00 07:00 15:00 23:00 Intake Total 240 ml 960 ml Balance 240 ml 960 ml Intake Oral 240 ml 960 ml # Voids 3 2 1 3 # Bowel Movements 1 0 0 1 Result Diagram: 05/12/16 1056 05/11/16 0924 Imaging Last Impressions Chest X-Ray 05/10/16 0000 Signed Impressions: Service Date/Time: Tuesday, May 10, 2016 11:23 - CONCLUSION: Atelectasis at the lung bases. No other acute cardiopulmonary disease identified. Suhail Calderon MD Gastrostomy Tube Placement 05/06/16 0000 Signed Impressions: Service Date/Time: Friday, May 06, 2016 13:15 - CONCLUSION: Uncomplicated gastrostomy tube placement as above. Fabian Blackwood Jr., MD Chest CT 05/03/16 0000 Signed Impressions: Service Date/Time: Tuesday, May 03, 2016 11:33 - CONCLUSION: 1. Emphysema and right upper lobe scarring. Scarring is mildly nodular but still most likely benign. Six-month followup noncontrast chest CT recommended. 2. No lymphadenopathy. 3. Coronary artery calcification. John Mcdonnell MD Abdomen/Pelvis CT 05/03/16 0000 Signed Impressions: Service Date/Time: Tuesday, May 03, 2016 11:33 - CONCLUSION: 1. No malignancy or other acute abnormality seen within the abdomen or pelvis. 2. Diverticulosis of the colon without acute inflammatory changes. 3. Atherosclerotic aorta. No aneurysm. John Mcdonnell MD Neck CT 05/01/16 0000 Signed Impressions: Service Date/Time: April 13:51 - CONCLUSION: 1. Large mass involving the larynx measuring 3.5 x 2.0 cm causing significant compromise to the airway. No adenopathy observed. Malignancy is felt most likely. 2. Severe emphysematous changes. 3. Areas of probable scarring involving the right lung apex. This is nodular in appearance in one area that is partially visualized. I suggest a CT of the thorax to further evaluate. Fabian Blackwood Jr., MD Objective Remarks General: No acute distress. Trach. Heart: Regular rate and rhythm. No murmur. Lungs: Clear to auscultation bilaterally. No wheezes, rales, or rhonchi. Breathing is nonlabored. Abdomen: Soft, nontender, nondistended. PEG tube in place - C/D/I Extremities: No lower extremity edema. No calf tenderness. Psych: Alert and oriented. Nonverbal, but answers questions by nodding or writing answers. Procedures 05/05/16 Laryngeal mass biopsy 05/05/16 tracheostomy Medications and IVs Current Medications Medications (Trade) Dose Ordered Sig/Darryl Route Start Time Stop Time Status Last Admin (NS Flush) 2 ml UNSCH PRN FLUSH 05/01/16 15:15 (NS Flush) 2 ml BID FLUSH 05/01/16 21:00 05/12/16 09:15 (Zofran Inj) 4 mg Q6H PRN IVP 05/01/16 15:15 05/07/16 18:03 (Morphine Inj) 2 mg Q3H PRN IV 05/01/16 15:15 05/12/16 13:17 (Narcan Inj) 0.4 mg UNSCH PRN IV 05/01/16 15:15 (Reglan Inj) 5 mg Q8H PRN IV PUSH 05/07/16 22:15 05/07/16 22:12 (Colace) 100 mg TID PO 05/08/16 09:00 05/12/16 13:18 (Habitrol 7 Mg Patch.24 Hr) 1 patch DAILY TD 05/09/16 16:00 05/12/16 09:15 Miscellaneous Information 1 1 HS TD 05/09/16 21:00 05/11/16 21:00 Cefepime HCl 1000 mg/Sodium Chloride 100 ml @ 200 mls/hr Q8H IV 05/11/16 18:00 05/12/16 09:15 Vancomycin HCl 1000 mg/Sodium Chloride 250 ml @ 250 mls/hr Q8H IV 05/11/16 20:00 05/12/16 13:18 (Vancomycin Consult Pharmacy) 0 ml @ 0 mls/hr UNSCH OTHER 05/11/16 17:00 (Robitussin Dm 200-20 Mg/10 ml Liq) 10 ml Q6H PRN PO 05/11/16 17:00 Miscellaneous Information SPECIFIC LAB TO BE DRAWN:VANCO TROUGH DATE TO... ONCE ONCE XX 05/12/16 19:45 05/12/16 19:46 (Mucinex Er) 600 mg BID PO 05/11/16 21:30 05/12/16 09:15 (Tessalon) 200 mg TID PRN PO 05/11/16 21:30 05/12/16 05:58 (Tylenol) 650 mg Q6HR PRN PO 05/11/16 21:30 05/11/16 21:40 (Protonix) 40 mg DAILY PO 05/12/16 09:00 05/12/16 09:15 (Lovenox Inj) 40 mg Q24H SQ 05/12/16 06:00 05/12/16 05:55 A/P Problem List: (1) Laryngeal mass ICD Code: J38.7 Status: Acute (2) COPD (chronic obstructive pulmonary disease) ICD Code: J44.9 Status: Chronic (3) Tobacco abuse ICD Code: Z72.0 Status: Chronic (4) Nausea & vomiting ICD Code: R11.2 Status: Resolved (5) Hyponatremia ICD Code: E87.1 Status: Chronic (6) Low grade fever ICD Code: R50.9 Status: Acute Plan: Low grade fever likely due to lower respiratory infection/HCAP UA negative CXR reviewed by me reports atelectasis/infiltrates at the bases. Patient started on IV vancomycin and IV cefepime on 05/11/16. Blood cultures still pending, sputum culture grew gram-negative petros. Follow-up ID and sensitivities. Continue current antibiotic therapy. Cough is improving. (7) Leukocytosis ICD Code: D72.829 Status: Acute Plan: Could possibly due to infectious process. Continue to monitor CBC with diff. Assessment and Plan (1) Laryngeal mass Plan: Likely malignancy. Appreciate oncology, ENT, general surgery recommendations. S/P biopsy of the mass. S/P tracheostomy. Await pathology. Radiation oncology consulted for concurrent chemo/radiation. PEG tube placed . Dietary consult requested. Patient is now on regular diet as per surgery Speech therapy following - advised regular diet. (2) COPD (chronic obstructive pulmonary disease) Plan: Continue supplemental oxygen. Bronchodilators as needed. (3) Tobacco abuse Plan: Advised smoking cessation (4) Nausea & vomiting Plan: resolved. Continue Zofran as needed. (5) Hyponatremia Plan: Likely SIADH due to nausea. D5 1/2 ns was discontinued. Continue to monitor sodium. resolved. sodium 137 - continue to monitor BMP. Discharge Planning Pending clinical improvement. Patient with low grade fevers. Problem Qualifiers (1) COPD (chronic obstructive pulmonary disease): Qualified Code: J42 - Chronic bronchitis, unspecified chronic bronchitis type (2) Leukocytosis: Qualified Code: D72.829 - Leukocytosis, unspecified type Tobi Salas MD May 12, 2016 15:29
[2016-05-12] MEDS ORDERED: PHARMACY ORDERED LAB XX ONE (19:45)
[2016-05-12] MEDS: REMOVE OLD NICODERM (NICOTINE) PATCH TD SCH (21:00)
[2016-05-13] VITALS (7 sets, daily range): BP systolic 114–137; BP diastolic 73–86; PULSE 73–78; RESP 16–20; TEMP 96.4–99; O2SAT 92–96
[2016-05-13] MEDS: MORPHINE SULFATE 4 MG/ML INJ IV PRN ×3 (02:18→09:14)
[2016-05-13] MEDS: CEFEPIME INJ 1,000 MG in SODIUM CHLORIDE 0.9% INJ 100 ML IV SCH ×3 (02:18→17:20)
[2016-05-13] MEDS: VANCOMYCIN INJ 1,000 MG in SODIUM CHLOR 0.9% 250 ML INJ 250 ML IV SCH (04:10)
[2016-05-13] MEDS: guaiFENesin/DEXTROMETHORPHAN 200 MG/20 MG/10 ML CUP PO PRN (04:13)
[2016-05-13] MEDS: ENOXAPARIN SODIUM 40 MG/0.4 ML SYRINGE SQ SCH (05:50)
[2016-05-13 07:24] LABS: AUTOMATED NEUTROPHIL # 6.7 TH/MM3 (1.8-7.7); BASOPHIL # 0.1 TH/MM3 (0-0.2); BASOPHIL % 0.8 % (0.0-2.0); EOSINOPHIL # 0.6 TH/MM3 (0-0.4); EOSINOPHIL % 5.8 % (0.0-4.0); HEMO FLAGS DIFF FINAL; LYMPHOCYTE # 1.7 TH/MM3 (1.0-4.8); MEAN CELL VOLUME 90.7 FL (80.0-100.0); MEAN CORPUSCULAR HEMOGLOBIN 31.2 PG (27.0-34.0); MEAN CORPUSCULAR HGB CONC 34.4 % (32.0-36.0); MONO % 11.4 % (0.0-8.0); PLATELET COUNT 334 TH/MM3 (150-450); RED BLOOD COUNT 3.97 MIL/MM3 (4.50-5.90); RED CELL DISTRIBUTION WIDTH 13.4 % (11.6-17.2); WHITE BLOOD COUNT 10.3 TH/MM3 (4.0-11.0)
[2016-05-13 07:46] LABS: ALKALINE PHOSPHATASE 68 U/L (45-117); ALT (GPT) 32 U/L (12-78); ANION GAP 7 MEQ/L (5-15); AST (GOT) 17 U/L (15-37); BICARBONATE 27.1 MEQ/L (21.0-32.0); BLOOD UREA NITROGEN 13 MG/DL (7-18); CHLORIDE 101 MEQ/L (98-107); GLOMERULAR FILTRATION RATE 124 ML/MIN (>89); POTASSIUM 4.1 MEQ/L (3.5-5.1); SODIUM (NA) 135 MEQ/L (136-145); TOTAL BILIRUBIN ADULT 0.4 MG/DL (0.2-1.0)
[2016-05-13] MEDS: PANTOPRAZOLE SOD 40 MG DELAYED RELEASE TAB PO SCH (09:14)
[2016-05-13] MEDS: NICOTINE 7 MG/24 HR PATCH TD SCH (09:14)
[2016-05-13] MEDS: DOCUSATE SODIUM 100 MG CAP PO SCH ×3 (09:14→17:20)
[2016-05-13] MEDS: guaiFENesin E.R. 600 MG TAB PO SCH ×2 (09:14→19:42)
[2016-05-13] MEDS: SODIUM CHLORIDE 0.9% FLUSH 5 ML FLUSH FLUSH SCH ×2 (09:15→19:42)
[2016-05-13] MEDS ORDERED: ACETAMINOPHEN 325 MG TAB PO PRN (11:15)
[2016-05-13] MEDS ORDERED: NALOXONE HCL 0.4 MG/ML AMP IV PRN (11:15)
[2016-05-13] MEDS ORDERED: oxyCODONE/ACETAMINOPHEN 5 MG/325 MG TAB PO PRN (11:15)
[2016-05-13] MEDS ORDERED: PHARMACY ORDERED LAB XX ONE (11:45)
--- NOTE | 2016-05-13 11:47 | HHI.PR ---
Subjective Remarks less secretions through trach cough improving denies sob/cp no further fevers On T piece - sating 96%. no further fevers Objective Vitals Vital Signs Date Time Temp Pulse Resp B/P Pulse Ox O2 Delivery O2 Flow Rate FiO2 05/13/16 11:16 95 T-piece 28 05/13/16 08:00 99.0 74 20 114/80 94 05/13/16 04:00 97.8 74 16 117/79 92 05/13/16 00:00 96.4 78 17 137/86 93 05/12/16 20:00 98.7 78 17 148/80 93 05/12/16 19:20 18 05/12/16 17:21 98 T-piece 6.00 28 05/12/16 16:00 98.9 79 18 115/79 98 05/12/16 12:00 99.1 78 18 129/79 92 I/O 05/12/16 05/12/16 05/12/16 05/13/16 05/13/16 05/13/16 07:00 15:00 23:00 07:00 15:00 23:00 Intake Total 240 ml 960 ml 240 ml 120 ml Output Total 200 ml 200 ml Balance 240 ml 960 ml 40 ml -80 ml Intake Oral 240 ml 960 ml 240 ml 120 ml Output Urine Total 200 ml 200 ml # Voids 1 3 # Bowel Movements 0 1 Result Diagram: 05/13/16 0637 05/13/16 0637 Imaging Last Impressions Chest X-Ray 05/10/16 0000 Signed Impressions: Service Date/Time: Tuesday, May 10, 2016 11:23 - CONCLUSION: Atelectasis at the lung bases. No other acute cardiopulmonary disease identified. Suhail Calderon MD Gastrostomy Tube Placement 05/06/16 0000 Signed Impressions: Service Date/Time: Friday, May 06, 2016 13:15 - CONCLUSION: Uncomplicated gastrostomy tube placement as above. Fabian Blackwood Jr., MD Chest CT 05/03/16 0000 Signed Impressions: Service Date/Time: Tuesday, May 03, 2016 11:33 - CONCLUSION: 1. Emphysema and right upper lobe scarring. Scarring is mildly nodular but still most likely benign. Six-month followup noncontrast chest CT recommended. 2. No lymphadenopathy. 3. Coronary artery calcification. John Mcdonnell MD Abdomen/Pelvis CT 05/03/16 0000 Signed Impressions: Service Date/Time: Tuesday, May 03, 2016 11:33 - CONCLUSION: 1. No malignancy or other acute abnormality seen within the abdomen or pelvis. 2. Diverticulosis of the colon without acute inflammatory changes. 3. Atherosclerotic aorta. No aneurysm. John Mcdonnell MD Neck CT 05/01/16 0000 Signed Impressions: Service Date/Time: April 13:51 - CONCLUSION: 1. Large mass involving the larynx measuring 3.5 x 2.0 cm causing significant compromise to the airway. No adenopathy observed. Malignancy is felt most likely. 2. Severe emphysematous changes. 3. Areas of probable scarring involving the right lung apex. This is nodular in appearance in one area that is partially visualized. I suggest a CT of the thorax to further evaluate. Fabian Blackwood Jr., MD Objective Remarks General: No acute distress. Trach. Heart: Regular rate and rhythm. No murmur. Lungs: Clear to auscultation bilaterally. No wheezes, rales, or rhonchi. Breathing is nonlabored. Abdomen: Soft, nontender, nondistended. PEG tube in place - C/D/I Extremities: No lower extremity edema. No calf tenderness. Psych: Alert and oriented. Nonverbal, but answers questions by nodding or writing answers. Procedures 05/05/16 Laryngeal mass biopsy 05/05/16 tracheostomy Medications and IVs Current Medications Medications (Trade) Dose Ordered Sig/Darryl Route Start Time Stop Time Status Last Admin (NS Flush) 2 ml UNSCH PRN FLUSH 05/01/16 15:15 (NS Flush) 2 ml BID FLUSH 05/01/16 21:00 05/13/16 09:15 (Zofran Inj) 4 mg Q6H PRN IVP 05/01/16 15:15 05/07/16 18:03 (Reglan Inj) 5 mg Q8H PRN IV PUSH 05/07/16 22:15 05/07/16 22:12 (Colace) 100 mg TID PO 05/08/16 09:00 05/13/16 09:14 (Habitrol 7 Mg Patch.24 Hr) 1 patch DAILY TD 05/09/16 16:00 05/13/16 09:14 Miscellaneous Information 1 1 HS TD 05/09/16 21:00 05/12/16 21:00 (Maxipime Inj/NS Inj) 100 ml @ 200 mls/hr Q8H IV 05/11/16 18:00 05/13/16 09:14 (Robitussin Dm 200-20 Mg/10 ml Liq) 10 ml Q6H PRN PO 05/11/16 17:00 05/13/16 04:13 (Mucinex Er) 600 mg BID PO 05/11/16 21:30 05/13/16 09:14 (Tessalon) 200 mg TID PRN PO 05/11/16 21:30 05/12/16 18:11 (Tylenol) 650 mg Q6HR PRN PO 05/11/16 21:30 05/11/16 21:40 (Protonix) 40 mg DAILY PO 05/12/16 09:00 05/13/16 09:14 (Lovenox Inj) 40 mg Q24H SQ 05/12/16 06:00 05/13/16 05:50 (Tylenol) 650 mg Q6H PRN PO 05/13/16 11:15 (Percocet 5-325 Mg) 1 tab Q6H PRN PO 05/13/16 11:15 (Percocet 10-325 Mg) 1 tab Q6H PRN PO 05/13/16 11:15 (Morphine Inj) 4 mg Q3H PRN IV 05/13/16 11:15 (Narcan Inj) 0.4 mg UNSCH PRN IV 05/13/16 11:15 A/P Problem List: (1) Laryngeal mass ICD Code: J38.7 Status: Acute (2) COPD (chronic obstructive pulmonary disease) ICD Code: J44.9 Status: Chronic (3) Tobacco abuse ICD Code: Z72.0 Status: Chronic (4) Nausea & vomiting ICD Code: R11.2 Status: Resolved (5) Hyponatremia ICD Code: E87.1 Status: Chronic (6) Low grade fever ICD Code: R50.9 Status: Acute Plan: Low grade fever likely due to lower respiratory infection/HCAP UA negative CXR reviewed by me reports atelectasis/infiltrates at the bases. Patient started on IV vancomycin and IV cefepime on 05/11/16. Blood cultures still pending, sputum culture grew gram-negative petros. Follow-up ID and sensitivities. Continue current antibiotic therapy. Cough is improving. 05/13 No further fevers. sputum culture growing pseudomonas aureoginosa - fluorescens - DC Vancomycin (7) Leukocytosis ICD Code: D72.829 Status: Acute Plan: Could possibly due to infectious process. Continue to monitor CBC with diff. leukocytosis improving - now 10 k Assessment and Plan (1) Laryngeal mass Plan: Likely malignancy. Appreciate oncology, ENT, general surgery recommendations. S/P biopsy of the mass. S/P tracheostomy. Await pathology. Radiation oncology consulted for concurrent chemo/radiation. PEG tube placed . Dietary consult requested. Patient is now on regular diet as per surgery Speech therapy following - advised regular diet. (2) COPD (chronic obstructive pulmonary disease) Plan: Continue supplemental oxygen. Bronchodilators as needed. (3) Tobacco abuse Plan: Advised smoking cessation (4) Nausea & vomiting Plan: resolved. Continue Zofran as needed. (5) Hyponatremia Plan: Likely SIADH due to nausea. D5 03/17 ns was discontinued. Continue to monitor sodium. resolved. sodium 137 - continue to monitor BMP. Discharge Planning Pending clinical improvement. Patient with low grade fevers. Problem Qualifiers (1) COPD (chronic obstructive pulmonary disease): Qualified Code: J42 - Chronic bronchitis, unspecified chronic bronchitis type (2) Leukocytosis: Qualified Code: D72.829 - Leukocytosis, unspecified type Tobi Salas MD May 13, 2016 11:47
[2016-05-13] MEDS: oxyCODONE/ACETAMINOPHEN 10 MG/325 MG TAB PO PRN ×2 (13:41→19:42)
[2016-05-13] MEDS: REMOVE OLD NICODERM (NICOTINE) PATCH TD SCH (19:44)
[2016-05-14] VITALS (9 sets, daily range): BP systolic 113–136; BP diastolic 70–80; PULSE 72–80; RESP 16–24; TEMP 97.6–99.6; O2SAT 92–98
[2016-05-14] MEDS: oxyCODONE/ACETAMINOPHEN 10 MG/325 MG TAB PO PRN ×4 (02:34→19:54)
[2016-05-14] MEDS: CEFEPIME INJ 1,000 MG in SODIUM CHLORIDE 0.9% INJ 100 ML IV SCH ×3 (02:34→17:55)
[2016-05-14] MEDS: ENOXAPARIN SODIUM 40 MG/0.4 ML SYRINGE SQ SCH (05:58)
[2016-05-14] MEDS: DOCUSATE SODIUM 100 MG CAP PO SCH ×3 (08:31→17:55)
[2016-05-14] MEDS: PANTOPRAZOLE SOD 40 MG DELAYED RELEASE TAB PO SCH (08:31)
[2016-05-14] MEDS: guaiFENesin E.R. 600 MG TAB PO SCH ×2 (08:31→20:39)
[2016-05-14] MEDS: NICOTINE 7 MG/24 HR PATCH TD SCH (08:31)
[2016-05-14] MEDS: SODIUM CHLORIDE 0.9% FLUSH 5 ML FLUSH FLUSH SCH ×2 (08:32→20:39)
--- NOTE | 2016-05-14 13:56 | HHI.PR ---
Subjective Remarks no further fevers denies cp/sob stable vital signs Objective Vitals Vital Signs Date Time Temp Pulse Resp B/P Pulse Ox O2 Delivery O2 Flow Rate FiO2 05/14/16 12:00 98.5 80 20 113/80 96 05/14/16 09:43 94 T-piece 28 05/14/16 08:00 98.9 72 24 121/77 95 05/14/16 04:42 92 T-piece 05/14/16 04:00 97.7 77 16 131/70 96 05/14/16 00:00 97.6 75 18 136/77 98 05/13/16 20:00 97.7 78 18 124/73 94 05/13/16 17:00 98.9 73 20 132/77 94 I/O 05/13/16 05/13/16 05/13/16 05/14/16 05/14/16 05/14/16 07:00 15:00 23:00 07:00 15:00 23:00 Intake Total 120 ml 720 ml 480 ml 480 ml Output Total 200 ml Balance -80 ml 720 ml 480 ml 480 ml Intake Oral 120 ml 720 ml 480 ml 480 ml Output Urine Total 200 ml # Voids 3 2 2 # Bowel Movements 1 Result Diagram: 05/13/16 0637 05/13/16 0637 Imaging Last Impressions Chest X-Ray 05/10/16 0000 Signed Impressions: Service Date/Time: Tuesday, May 10, 2016 11:23 - CONCLUSION: Atelectasis at the lung bases. No other acute cardiopulmonary disease identified. Suhail Calderon MD Gastrostomy Tube Placement 05/06/16 0000 Signed Impressions: Service Date/Time: Friday, May 06, 2016 13:15 - CONCLUSION: Uncomplicated gastrostomy tube placement as above. Fabian Blackwood Jr., MD Chest CT 05/03/16 0000 Signed Impressions: Service Date/Time: Tuesday, May 03, 2016 11:33 - CONCLUSION: 1. Emphysema and right upper lobe scarring. Scarring is mildly nodular but still most likely benign. Six-month followup noncontrast chest CT recommended. 2. No lymphadenopathy. 3. Coronary artery calcification. John Mcdonnell MD Abdomen/Pelvis CT 05/03/16 0000 Signed Impressions: Service Date/Time: Tuesday, May 03, 2016 11:33 - CONCLUSION: 1. No malignancy or other acute abnormality seen within the abdomen or pelvis. 2. Diverticulosis of the colon without acute inflammatory changes. 3. Atherosclerotic aorta. No aneurysm. John Mcdonnell MD Neck CT 05/01/16 0000 Signed Impressions: Service Date/Time: April 13:51 - CONCLUSION: 1. Large mass involving the larynx measuring 3.5 x 2.0 cm causing significant compromise to the airway. No adenopathy observed. Malignancy is felt most likely. 2. Severe emphysematous changes. 3. Areas of probable scarring involving the right lung apex. This is nodular in appearance in one area that is partially visualized. I suggest a CT of the thorax to further evaluate. Fabian Blackwood Jr., MD Objective Remarks General: No acute distress. Trach. Heart: Regular rate and rhythm. No murmur. Lungs: Clear to auscultation bilaterally. No wheezes, rales, or rhonchi. Breathing is nonlabored. Abdomen: Soft, nontender, nondistended. PEG tube in place - C/D/I Extremities: No lower extremity edema. No calf tenderness. Psych: Alert and oriented. Nonverbal, but answers questions by nodding or writing answers. Procedures 05/05/16 Laryngeal mass biopsy 05/05/16 tracheostomy Medications and IVs Current Medications Medications (Trade) Dose Ordered Sig/Darryl Route Start Time Stop Time Status Last Admin (NS Flush) 2 ml UNSCH PRN FLUSH 05/01/16 15:15 (NS Flush) 2 ml BID FLUSH 05/01/16 21:00 05/14/16 08:32 (Zofran Inj) 4 mg Q6H PRN IVP 05/01/16 15:15 05/07/16 18:03 (Reglan Inj) 5 mg Q8H PRN IV PUSH 05/07/16 22:15 05/07/16 22:12 (Colace) 100 mg TID PO 05/08/16 09:00 05/14/16 08:31 (Habitrol 7 Mg Patch.24 Hr) 1 patch DAILY TD 05/09/16 16:00 05/14/16 08:31 Miscellaneous Information 1 1 HS TD 05/09/16 21:00 05/13/16 19:44 (Maxipime Inj/NS Inj) 100 ml @ 200 mls/hr Q8H IV 05/11/16 18:00 05/14/16 08:31 (Robitussin Dm 200-20 Mg/10 ml Liq) 10 ml Q6H PRN PO 05/11/16 17:00 05/13/16 04:13 (Mucinex Er) 600 mg BID PO 05/11/16 21:30 05/14/16 08:31 (Tessalon) 200 mg TID PRN PO 05/11/16 21:30 05/12/16 18:11 (Tylenol) 650 mg Q6HR PRN PO 05/11/16 21:30 05/11/16 21:40 (Protonix) 40 mg DAILY PO 05/12/16 09:00 05/14/16 08:31 (Lovenox Inj) 40 mg Q24H SQ 05/12/16 06:00 05/14/16 05:58 (Tylenol) 650 mg Q6H PRN PO 05/13/16 11:15 (Percocet 5-325 Mg) 1 tab Q6H PRN PO 05/13/16 11:15 (Percocet 10-325 Mg) 1 tab Q6H PRN PO 05/13/16 11:15 05/14/16 08:31 (Morphine Inj) 4 mg Q3H PRN IV 05/13/16 11:15 (Narcan Inj) 0.4 mg UNSCH PRN IV 05/13/16 11:15 Urinary Catheter: No Vascular Central Line Catheter: No A/P Problem List: (1) Laryngeal mass ICD Code: J38.7 Status: Acute (2) COPD (chronic obstructive pulmonary disease) ICD Code: J44.9 Status: Chronic (3) Tobacco abuse ICD Code: Z72.0 Status: Chronic (4) Nausea & vomiting ICD Code: R11.2 Status: Resolved (5) Hyponatremia ICD Code: E87.1 Status: Chronic (6) Low grade fever ICD Code: R50.9 Status: Acute (7) Leukocytosis ICD Code: D72.829 Status: Acute Assessment and Plan (1) Laryngeal mass Plan: Likely malignancy. Appreciate oncology, ENT, general surgery recommendations. S/P biopsy of the mass. S/P tracheostomy. Await pathology. Radiation oncology consulted for concurrent chemo/radiation. PEG tube placed . Dietary consult requested. Patient is now on regular diet as per surgery Speech therapy following - advised regular diet. Pulmonary consult for trach management (2) COPD (chronic obstructive pulmonary disease) Plan: Continue supplemental oxygen. Bronchodilators as needed. (3) Tobacco abuse Plan: Advised smoking cessation (4) Nausea & vomiting Plan: resolved. Continue Zofran as needed. (5) Hyponatremia Plan: Likely SIADH due to nausea. D5 1/2 ns was discontinued. Continue to monitor sodium. resolved. sodium 137 - continue to monitor BMP. (6) Low grade fever ICD Code: R50.9 Status: Acute Plan: Low grade fever likely due to lower respiratory infection/HCAP UA negative CXR reviewed by me reports atelectasis/infiltrates at the bases. Patient started on IV vancomycin and IV cefepime on 05/11/16. Blood cultures still pending, sputum culture grew gram-negative petros. Follow-up ID and sensitivities. Continue current antibiotic therapy. Cough is improving. 05/13 No further fevers. sputum culture growing pseudomonas aureoginosa - fluorescens - DC Vancomycin Continue Cefepime (7) Leukocytosis ICD Code: D72.829 Status: Acute Plan: Could possibly due to infectious process. Continue to monitor CBC with diff. leukocytosis improving - now 10 k Discharge Planning Pending clinical improvement. Patient with low grade fevers. Problem Qualifiers (1) COPD (chronic obstructive pulmonary disease): Qualified Code: J42 - Chronic bronchitis, unspecified chronic bronchitis type (2) Leukocytosis: Qualified Code: D72.829 - Leukocytosis, unspecified type Tobi Salas MD May 14, 2016 13:55
[2016-05-14] MEDS: BENZONATATE 100 MG CAP PO PRN (20:39)
[2016-05-14] MEDS: REMOVE OLD NICODERM (NICOTINE) PATCH TD SCH (20:42)
[2016-05-14] MEDS: MORPHINE SULFATE 4 MG/ML INJ IV PRN (23:51)
[2016-05-15] VITALS (7 sets, daily range): BP systolic 116–129; BP diastolic 66–84; PULSE 72–80; RESP 16–17; TEMP 96.7–98.6; O2SAT 94–97
[2016-05-15] MEDS: CEFEPIME INJ 1,000 MG in SODIUM CHLORIDE 0.9% INJ 100 ML IV SCH ×3 (02:31→17:31)
[2016-05-15] MEDS: oxyCODONE/ACETAMINOPHEN 10 MG/325 MG TAB PO PRN ×3 (02:31→17:31)
[2016-05-15] MEDS: ENOXAPARIN SODIUM 40 MG/0.4 ML SYRINGE SQ SCH (05:35)
[2016-05-15] MEDS: MORPHINE SULFATE 4 MG/ML INJ IV PRN ×2 (05:40→21:29)
[2016-05-15] MEDS: guaiFENesin E.R. 600 MG TAB PO SCH ×2 (07:47→21:24)
[2016-05-15] MEDS: PANTOPRAZOLE SOD 40 MG DELAYED RELEASE TAB PO SCH (07:47)
[2016-05-15] MEDS: DOCUSATE SODIUM 100 MG CAP PO SCH ×3 (07:47→17:31)
[2016-05-15] MEDS: NICOTINE 7 MG/24 HR PATCH TD SCH (07:47)
[2016-05-15 07:48] LABS: ALT (GPT) 33 U/L (12-78); ANION GAP 9 MEQ/L (5-15); AST (GOT) 20 U/L (15-37); BICARBONATE 29.4 MEQ/L (21.0-32.0); BLOOD UREA NITROGEN 19 MG/DL (7-18); CHLORIDE 103 MEQ/L (98-107); GLOMERULAR FILTRATION RATE 141 ML/MIN (>89); POTASSIUM 4.2 MEQ/L (3.5-5.1); SODIUM (NA) 141 MEQ/L (136-145)
[2016-05-15] MEDS: SODIUM CHLORIDE 0.9% FLUSH 5 ML FLUSH FLUSH SCH ×2 (07:48→21:00)
[2016-05-15 07:50] LABS: ALKALINE PHOSPHATASE 86 U/L (45-117); TOTAL BILIRUBIN ADULT 0.2 MG/DL (0.2-1.0)
[2016-05-15 07:53] LABS: BASOPHIL # 0.1 TH/MM3 (0-0.2); BASOPHIL % 0.9 % (0.0-2.0); EOSINOPHIL # 0.6 TH/MM3 (0-0.4); HEMATOCRIT 37.1 % (39.0-51.0); HEMO FLAGS DIFF FINAL; LYMPH % 22.2 % (9.0-44.0); LYMPHOCYTE # 2.2 TH/MM3 (1.0-4.8); MEAN CELL VOLUME 91.6 FL (80.0-100.0); MEAN CORPUSCULAR HEMOGLOBIN 31.6 PG (27.0-34.0); MEAN CORPUSCULAR HGB CONC 34.6 % (32.0-36.0); NEUT % 60.9 % (16.0-70.0); PLATELET COUNT 352 TH/MM3 (150-450); RED BLOOD COUNT 4.05 MIL/MM3 (4.50-5.90); RED CELL DISTRIBUTION WIDTH 13.6 % (11.6-17.2); WHITE BLOOD COUNT 9.9 TH/MM3 (4.0-11.0)
--- NOTE | 2016-05-15 10:06 | HHI.PR ---
Subjective Remarks No further fevers denies chest pain/sob still has yellowish sputum but much improved stable vital signs Objective Vitals Vital Signs Date Time Temp Pulse Resp B/P Pulse Ox O2 Delivery O2 Flow Rate FiO2 05/15/16 09:26 97 Trach Collar 28 05/15/16 08:42 97.7 74 16 119/81 94 05/15/16 04:00 98.2 76 16 125/68 94 05/15/16 00:00 98.6 75 16 121/66 94 05/14/16 20:00 98.5 79 16 126/75 95 05/14/16 17:08 95 21 05/14/16 15:50 99.6 76 20 116/72 94 05/14/16 12:00 98.5 80 20 113/80 96 I/O 05/14/16 05/14/16 05/14/16 05/15/16 05/15/16 05/15/16 07:00 15:00 23:00 07:00 15:00 23:00 Intake Total 480 ml 480 ml 240 ml 240 ml Balance 480 ml 480 ml 240 ml 240 ml Intake Oral 480 ml 480 ml 240 ml 240 ml # Voids 2 1 2 2 # Bowel Movements 1 Result Diagram: 05/15/16 0554 05/15/16 0554 Imaging Last Impressions Chest X-Ray 05/10/16 0000 Signed Impressions: Service Date/Time: Tuesday, May 10, 2016 11:23 - CONCLUSION: Atelectasis at the lung bases. No other acute cardiopulmonary disease identified. Suhail Calderon MD Gastrostomy Tube Placement 05/06/16 0000 Signed Impressions: Service Date/Time: Friday, May 06, 2016 13:15 - CONCLUSION: Uncomplicated gastrostomy tube placement as above. Fabian Blackwood Jr., MD Chest CT 05/03/16 0000 Signed Impressions: Service Date/Time: Tuesday, May 03, 2016 11:33 - CONCLUSION: 1. Emphysema and right upper lobe scarring. Scarring is mildly nodular but still most likely benign. Six-month followup noncontrast chest CT recommended. 2. No lymphadenopathy. 3. Coronary artery calcification. John Mcdonnell MD Abdomen/Pelvis CT 05/03/16 0000 Signed Impressions: Service Date/Time: Tuesday, May 03, 2016 11:33 - CONCLUSION: 1. No malignancy or other acute abnormality seen within the abdomen or pelvis. 2. Diverticulosis of the colon without acute inflammatory changes. 3. Atherosclerotic aorta. No aneurysm. John Mcdonnell MD Neck CT 05/01/16 0000 Signed Impressions: Service Date/Time: April 13:51 - CONCLUSION: 1. Large mass involving the larynx measuring 3.5 x 2.0 cm causing significant compromise to the airway. No adenopathy observed. Malignancy is felt most likely. 2. Severe emphysematous changes. 3. Areas of probable scarring involving the right lung apex. This is nodular in appearance in one area that is partially visualized. I suggest a CT of the thorax to further evaluate. Fabian Blackwood Jr., MD Objective Remarks General: No acute distress. Trach. Heart: Regular rate and rhythm. No murmur. Lungs: Clear to auscultation bilaterally. No wheezes, rales, or rhonchi. Breathing is nonlabored. Abdomen: Soft, nontender, nondistended. PEG tube in place - C/D/I Extremities: No lower extremity edema. No calf tenderness. Psych: Alert and oriented. Nonverbal, but answers questions by nodding or writing answers. Procedures 05/05/16 Laryngeal mass biopsy 05/05/16 tracheostomy Medications and IVs Current Medications Medications (Trade) Dose Ordered Sig/Darryl Route Start Time Stop Time Status Last Admin (NS Flush) 2 ml UNSCH PRN FLUSH 05/01/16 15:15 (NS Flush) 2 ml BID FLUSH 05/01/16 21:00 05/15/16 07:48 (Zofran Inj) 4 mg Q6H PRN IVP 05/01/16 15:15 05/07/16 18:03 (Reglan Inj) 5 mg Q8H PRN IV PUSH 05/07/16 22:15 05/07/16 22:12 (Colace) 100 mg TID PO 05/08/16 09:00 05/15/16 15:22 (Habitrol 7 Mg Patch.24 Hr) 1 patch DAILY TD 05/09/16 16:00 05/15/16 07:47 Miscellaneous Information 1 1 HS TD 05/09/16 21:00 05/14/16 20:42 (Maxipime Inj/NS Inj) 100 ml @ 200 mls/hr Q8H IV 05/11/16 18:00 05/15/16 11:28 (Robitussin Dm 200-20 Mg/10 ml Liq) 10 ml Q6H PRN PO 05/11/16 17:00 05/13/16 04:13 (Mucinex Er) 600 mg BID PO 05/11/16 21:30 05/15/16 07:47 (Tessalon) 200 mg TID PRN PO 05/11/16 21:30 05/14/16 20:39 (Tylenol) 650 mg Q6HR PRN PO 05/11/16 21:30 05/11/16 21:40 (Protonix) 40 mg DAILY PO 05/12/16 09:00 05/15/16 07:47 (Lovenox Inj) 40 mg Q24H SQ 05/12/16 06:00 05/15/16 05:35 (Tylenol) 650 mg Q6H PRN PO 05/13/16 11:15 (Percocet 5-325 Mg) 1 tab Q6H PRN PO 05/13/16 11:15 (Percocet 10-325 Mg) 1 tab Q6H PRN PO 05/13/16 11:15 05/15/16 11:28 (Morphine Inj) 4 mg Q3H PRN IV 05/13/16 11:15 05/15/16 05:40 (Narcan Inj) 0.4 mg UNSCH PRN IV 05/13/16 11:15 Urinary Catheter: No Vascular Central Line Catheter: No A/P Problem List: (1) Laryngeal mass ICD Code: J38.7 Status: Acute (2) COPD (chronic obstructive pulmonary disease) ICD Code: J44.9 Status: Chronic (3) Tobacco abuse ICD Code: Z72.0 Status: Chronic (4) Nausea & vomiting ICD Code: R11.2 Status: Resolved (5) Hyponatremia ICD Code: E87.1 Status: Chronic (6) Low grade fever ICD Code: R50.9 Status: Acute (7) Leukocytosis ICD Code: D72.829 Status: Acute Assessment and Plan (1) Laryngeal mass Plan: Likely malignancy. Appreciate oncology, ENT, general surgery recommendations. S/P biopsy of the mass. S/P tracheostomy. Radiation oncology consulted for concurrent chemo/radiation. PEG tube placed 05/06. Dietary consult requested. Patient is now on regular diet as per surgery Speech therapy following - advised regular diet. adiation therapy to start in the upcoming days. 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 Pulmonary consult for trach management ---> pending (2) COPD (chronic obstructive pulmonary disease) Plan: Continue supplemental oxygen. Bronchodilators as needed. Stable. (3) Tobacco abuse Plan: Advised smoking cessation (4) Nausea & vomiting Plan: resolved. Continue Zofran as needed. (5) Hyponatremia Plan: Likely SIADH due to nausea. D5 / ns was discontinued. Continue to monitor sodium. resolved. sodium 137 - continue to monitor BMP. (6) Low grade fever ICD Code: R50.9 Status: Acute Plan: Low grade fever likely due to lower respiratory infection/HCAP UA negative CXR reviewed by me reports atelectasis/infiltrates at the bases. Patient started on IV vancomycin and IV cefepime on 05/11/16. Blood cultures still pending, sputum culture grew gram-negative petros. Follow-up ID and sensitivities. Continue current antibiotic therapy. Cough is improving. 05/13 No further fevers. sputum culture growing pseudomonas aureoginosa - fluorescens - DC Vancomycin / Continue Cefepime - antibiotics might be transitioned to oral levaquin in 1 to 2 days. (7) Leukocytosis ICD Code: D72.829 Status: Acute Plan: Could possibly due to infectious process. Continue to monitor CBC with diff. Leukocytosis resolved. Discharge Planning Continue to monitor in oncologic floor. Patient to get Problem Qualifiers (1) COPD (chronic obstructive pulmonary disease): Qualified Code: J42 - Chronic bronchitis, unspecified chronic bronchitis type (2) Leukocytosis: Qualified Code: D72.829 - Leukocytosis, unspecified type Tobi Salas MD May 15, 2016 10:06
--- NOTE | 2016-05-15 17:14 | HHI.PR ---
Subjective Remarks ALERT NO SOB TRACH OK Objective Vital Signs Date Time Temp Pulse Resp B/P Pulse Ox O2 Delivery O2 Flow Rate FiO2 05/15/16 12:00 96.7 72 16 117/78 96 05/15/16 09:26 97 Trach Collar 28 05/15/16 08:42 97.7 74 16 119/81 94 05/15/16 04:00 98.2 76 16 125/68 94 05/15/16 00:00 98.6 75 16 121/66 94 05/14/16 20:00 98.5 79 16 126/75 95 I/O 05/14/16 05/14/16 05/14/16 05/15/16 05/15/16 05/15/16 07:00 15:00 23:00 07:00 15:00 23:00 Intake Total 480 ml 480 ml 240 ml 240 ml Balance 480 ml 480 ml 240 ml 240 ml Intake Oral 480 ml 480 ml 240 ml 240 ml # Voids 2 1 2 2 # Bowel Movements 1 Result Diagram: 05/15/16 0554 05/15/16 0554 Objective Remarks GENERAL: SKIN: Warm and dry. HEAD: Atraumatic. Normocephalic. EYES: Pupils equal and round. No scleral icterus. No injection or drainage. ENT: No nasal bleeding or discharge. Mucous membranes pink and moist. NECK: Trachea midline. No JVD. TRACH IN PLACE CARDIOVASCULAR: Regular rate and rhythm. RESPIRATORY: No accessory muscle use. Clear to auscultation. Breath sounds equal bilaterally. GASTROINTESTINAL: Abdomen soft, non-tender, nondistended. Hepatic and splenic margins not palpable. MUSCULOSKELETAL: Extremities without clubbing, cyanosis, or edema. No obvious deformities. NEUROLOGICAL: Awake and alert. No obvious cranial nerve deficits. Motor grossly within normal limits. Five out of 5 muscle strength in the arms and legs. Normal speech. PSYCHIATRIC: Appropriate mood and affect; insight and judgment normal. Assessment and Plan Assessment and Plan LARYNGEAL CA S/P TRACH PLAN PULM TOILET REMOVE TRACHEOSTOMY WHEN POSSIBLE Kamran Andrew MD May 15, 2016 17:14
[2016-05-15] MEDS: REMOVE OLD NICODERM (NICOTINE) PATCH TD SCH (21:00)
[2016-05-16] VITALS (8 sets, daily range): BP systolic 110–125; BP diastolic 67–79; PULSE 67–76; RESP 16–18; TEMP 96.9–98.9; O2SAT 93–96
[2016-05-16] MEDS: CEFEPIME INJ 1,000 MG in SODIUM CHLORIDE 0.9% INJ 100 ML IV SCH ×3 (01:46→17:32)
[2016-05-16] MEDS: oxyCODONE/ACETAMINOPHEN 10 MG/325 MG TAB PO PRN ×3 (01:46→17:38)
[2016-05-16] MEDS: ENOXAPARIN SODIUM 40 MG/0.4 ML SYRINGE SQ SCH (05:58)
[2016-05-16] MEDS: SODIUM CHLORIDE 0.9% FLUSH 5 ML FLUSH FLUSH SCH ×2 (08:45→19:44)
[2016-05-16] MEDS: NICOTINE 7 MG/24 HR PATCH TD SCH (08:45)
[2016-05-16] MEDS: DOCUSATE SODIUM 100 MG CAP PO SCH ×3 (08:45→17:32)
[2016-05-16] MEDS: guaiFENesin E.R. 600 MG TAB PO SCH ×2 (08:45→19:41)
[2016-05-16] MEDS: PANTOPRAZOLE SOD 40 MG DELAYED RELEASE TAB PO SCH (08:45)
--- NOTE | 2016-05-16 15:07 | HHI.PR ---
Subjective Remarks patient stable seen in the room in the presence of nurse Miss Tracy no new issues. Objective Vital Signs Date Time Temp Pulse Resp B/P Pulse Ox O2 Delivery O2 Flow Rate FiO2 05/16/16 12:41 96.9 71 16 119/79 95 05/16/16 09:53 95 21 05/16/16 08:00 97.8 67 16 116/74 96 05/16/16 04:00 97.6 70 18 120/70 96 05/16/16 00:00 98.1 76 18 110/67 94 05/15/16 20:00 98.5 80 17 129/84 95 05/15/16 16:00 98.6 72 16 116/82 97 I/O 05/15/16 05/15/16 05/15/16 05/16/16 05/16/16 05/16/16 07:00 15:00 23:00 07:00 15:00 23:00 Intake Total 240 ml 590 ml 480 ml 60 ml 480 ml Balance 240 ml 590 ml 480 ml 60 ml 480 ml Intake Oral 240 ml 480 ml 480 ml 60 ml 480 ml IV Total 110 ml # Voids 2 3 2 1 3 # Bowel Movements 1 0 0 1 Result Diagram: 05/15/16 0554 05/15/16 0554 Imaging Last Impressions Chest X-Ray 05/10/16 0000 Signed Impressions: Service Date/Time: Tuesday, May 10, 2016 11:23 - CONCLUSION: Atelectasis at the lung bases. No other acute cardiopulmonary disease identified. Suhail Calderon MD Gastrostomy Tube Placement 05/06/16 0000 Signed Impressions: Service Date/Time: Friday, May 06, 2016 13:15 - CONCLUSION: Uncomplicated gastrostomy tube placement as above. Fabian Blackwood Jr., MD Chest CT 05/03/16 0000 Signed Impressions: Service Date/Time: Tuesday, May 03, 2016 11:33 - CONCLUSION: 1. Emphysema and right upper lobe scarring. Scarring is mildly nodular but still most likely benign. Six-month followup noncontrast chest CT recommended. 2. No lymphadenopathy. 3. Coronary artery calcification. John Mcdonnell MD Abdomen/Pelvis CT 05/03/16 0000 Signed Impressions: Service Date/Time: Tuesday, May 03, 2016 11:33 - CONCLUSION: 1. No malignancy or other acute abnormality seen within the abdomen or pelvis. 2. Diverticulosis of the colon without acute inflammatory changes. 3. Atherosclerotic aorta. No aneurysm. John Mcdonnell MD Neck CT 05/01/16 0000 Signed Impressions: Service Date/Time: April 13:51 - CONCLUSION: 1. Large mass involving the larynx measuring 3.5 x 2.0 cm causing significant compromise to the airway. No adenopathy observed. Malignancy is felt most likely. 2. Severe emphysematous changes. 3. Areas of probable scarring involving the right lung apex. This is nodular in appearance in one area that is partially visualized. I suggest a CT of the thorax to further evaluate. Fabian Blackwood Jr., MD Procedures 05/05/16 Laryngeal mass biopsy 05/05/16 tracheostomy Other Results Laboratory Tests Test 05/12/16 05/13/16 05/15/16 20:05 06:37 05:54 Vancomycin Level Trough 9.3 MCG/ML Phosphorus Level 3.1 MG/DL Magnesium Level 2.0 MG/DL White Blood Count 9.9 TH/MM3 Red Blood Count 4.05 MIL/MM3 Hemoglobin 12.8 GM/DL Hematocrit 37.1 % Mean Corpuscular Volume 91.6 FL Mean Corpuscular Hemoglobin 31.6 PG Mean Corpuscular Hemoglobin 34.6 % Concent Red Cell Distribution Width 13.6 % Platelet Count 352 TH/MM3 Mean Platelet Volume 7.1 FL Neutrophils (%) (Auto) 60.9 % Lymphocytes (%) (Auto) 22.2 % Monocytes (%) (Auto) 10.0 % Eosinophils (%) (Auto) 6.0 % Basophils (%) (Auto) 0.9 % Neutrophils # (Auto) 6.0 TH/MM3 Lymphocytes # (Auto) 2.2 TH/MM3 Monocytes # (Auto) 1.0 TH/MM3 Eosinophils # (Auto) 0.6 TH/MM3 Basophils # (Auto) 0.1 TH/MM3 CBC Comment DIFF FINAL Differential Comment Sodium Level 141 MEQ/L Potassium Level 4.2 MEQ/L Chloride Level 103 MEQ/L Carbon Dioxide Level 29.4 MEQ/L Anion Gap 9 MEQ/L Blood Urea Nitrogen 19 MG/DL Creatinine 0.59 MG/DL Estimat Glomerular Filtration 141 ML/MIN Rate Random Glucose 80 MG/DL Calcium Level 8.6 MG/DL Total Bilirubin 0.2 MG/DL Aspartate Amino Transf 20 U/L (AST/SGOT) Alanine Aminotransferase 33 U/L (ALT/SGPT) Alkaline Phosphatase 86 U/L Total Protein 6.5 GM/DL Albumin 2.7 GM/DL Objective Remarks General: No acute distress. Trach. Heart: Regular rate and rhythm. No murmur. Lungs: Clear to auscultation bilaterally. No wheezes, rales, or rhonchi. Breathing is nonlabored. Abdomen: Soft, nontender, nondistended. PEG tube in place - C/D/I Extremities: No lower extremity edema. No calf tenderness. Psych: Alert and oriented. Nonverbal, but answers questions by nodding or writing answers. Medications and IVs Current Medications Medications (Trade) Dose Ordered Sig/Darryl Route Start Time Stop Time Status Last Admin (NS Flush) 2 ml UNSCH PRN FLUSH 05/01/16 15:15 (NS Flush) 2 ml BID FLUSH 05/01/16 21:00 05/16/16 08:45 (Zofran Inj) 4 mg Q6H PRN IVP 05/01/16 15:15 05/07/16 18:03 (Reglan Inj) 5 mg Q8H PRN IV PUSH 05/07/16 22:15 05/07/16 22:12 (Colace) 100 mg TID PO 05/08/16 09:00 05/16/16 13:12 (Habitrol 7 Mg Patch.24 Hr) 1 patch DAILY TD 05/09/16 16:00 05/16/16 08:45 Miscellaneous Information 1 1 HS TD 05/09/16 21:00 05/15/16 21:00 (Maxipime Inj/NS Inj) 100 ml @ 200 mls/hr Q8H IV 05/11/16 18:00 05/16/16 08:51 (Robitussin Dm 200-20 Mg/10 ml Liq) 10 ml Q6H PRN PO 05/11/16 17:00 05/13/16 04:13 (Mucinex Er) 600 mg BID PO 05/11/16 21:30 05/16/16 08:45 (Tessalon) 200 mg TID PRN PO 05/11/16 21:30 05/14/16 20:39 (Tylenol) 650 mg Q6HR PRN PO 05/11/16 21:30 05/11/16 21:40 (Protonix) 40 mg DAILY PO 05/12/16 09:00 05/16/16 08:45 (Lovenox Inj) 40 mg Q24H SQ 05/12/16 06:00 05/16/16 05:58 (Tylenol) 650 mg Q6H PRN PO 05/13/16 11:15 (Percocet 5-325 Mg) 1 tab Q6H PRN PO 05/13/16 11:15 (Percocet 10-325 Mg) 1 tab Q6H PRN PO 05/13/16 11:15 05/16/16 08:51 (Morphine Inj) 4 mg Q3H PRN IV 05/13/16 11:15 05/15/16 21:29 (Narcan Inj) 0.4 mg UNSCH PRN IV 05/13/16 11:15 A/P Assessment and Plan 1. Laryngeal Mass Invasive Squamous Cell Carcinoma, rehabilitation specialist following, ENT, General asset recovery specialist Status post Biopsy of the mass, Status post Tracheostomy, Radiation rehabilitation specialist consulted PEG tube placed on 05/06/16, Dietary consult requested. On Regular diet as per Surgery, Speech therapy following. 2. COPD continue Bronchodilator, Mucolytic and Incentive spirometry. 3. Tobacco dependence Strongly recommended to stop smoking 4. Pneumonia HCAP bilateral bases infiltrates. on Vancomycin and Cefepime Pseudomonas Aeruginosa fluorescens. Discontinued Vancomycin. continued Cefepime. transition to Levaquin recommended in one to two days. DVT prophylaxis with Lovenox. Discharge Planning Awaiting final by gas plant specialist for discharge. Jarred Cruz MD May 16, 2016 15:07
--- NOTE | 2016-05-16 16:45 | HHI.PR ---
Subjective Remarks ALERT NO SOB TRACH OK Objective Vital Signs Date Time Temp Pulse Resp B/P Pulse Ox O2 Delivery O2 Flow Rate FiO2 05/16/16 12:41 96.9 71 16 119/79 95 05/16/16 09:53 95 21 05/16/16 08:00 97.8 67 16 116/74 96 05/16/16 04:00 97.6 70 18 120/70 96 05/16/16 00:00 98.1 76 18 110/67 94 05/15/16 20:00 98.5 80 17 129/84 95 I/O 05/15/16 05/15/16 05/15/16 05/16/16 05/16/16 05/16/16 07:00 15:00 23:00 07:00 15:00 23:00 Intake Total 240 ml 590 ml 480 ml 60 ml 480 ml Balance 240 ml 590 ml 480 ml 60 ml 480 ml Intake Oral 240 ml 480 ml 480 ml 60 ml 480 ml IV Total 110 ml # Voids 2 3 2 1 3 # Bowel Movements 1 0 0 1 Result Diagram: 05/15/16 0554 05/15/16 0554 Procedures 05/05/16 Laryngeal mass biopsy 05/05/16 tracheostomy Objective Remarks GENERAL: SKIN: Warm and dry. HEAD: Atraumatic. Normocephalic. EYES: Pupils equal and round. No scleral icterus. No injection or drainage. ENT: No nasal bleeding or discharge. Mucous membranes pink and moist. NECK: Trachea midline. No JVD. TRACH IN PLACE CARDIOVASCULAR: Regular rate and rhythm. RESPIRATORY: No accessory muscle use. Clear to auscultation. Breath sounds equal bilaterally. GASTROINTESTINAL: Abdomen soft, non-tender, nondistended. Hepatic and splenic margins not palpable. MUSCULOSKELETAL: Extremities without clubbing, cyanosis, or edema. No obvious deformities. NEUROLOGICAL: Awake and alert. No obvious cranial nerve deficits. Motor grossly within normal limits. Five out of 5 muscle strength in the arms and legs. Normal speech. PSYCHIATRIC: Appropriate mood and affect; insight and judgment normal. Assessment and Plan Assessment and Plan LARYNGEAL CA S/P TRACH PLAN PULM TOILET REMOVE TRACHEOSTOMY WHEN POSSIBLE Kamran Andrew MD May 16, 2016 16:44
[2016-05-16] MEDS: MORPHINE SULFATE 4 MG/ML INJ IV PRN (19:42)
[2016-05-16] MEDS: REMOVE OLD NICODERM (NICOTINE) PATCH TD SCH (19:45)
[2016-05-17] VITALS (8 sets, daily range): BP systolic 109–142; BP diastolic 68–78; PULSE 71–87; RESP 17–20; TEMP 95.8–101.4; O2SAT 92–98
[2016-05-17] MEDS: oxyCODONE/ACETAMINOPHEN 10 MG/325 MG TAB PO PRN ×3 (02:11→17:33)
[2016-05-17] MEDS: CEFEPIME INJ 1,000 MG in SODIUM CHLORIDE 0.9% INJ 100 ML IV SCH ×3 (02:12→18:11)
[2016-05-17] MEDS: MORPHINE SULFATE 4 MG/ML INJ IV PRN ×5 (03:49→21:18)
[2016-05-17] MEDS: ENOXAPARIN SODIUM 40 MG/0.4 ML SYRINGE SQ SCH (05:23)
[2016-05-17] MEDS: PANTOPRAZOLE SOD 40 MG DELAYED RELEASE TAB PO SCH (11:09)
[2016-05-17] MEDS: DOCUSATE SODIUM 100 MG CAP PO SCH ×3 (11:10→18:10)
[2016-05-17] MEDS: guaiFENesin E.R. 600 MG TAB PO SCH ×2 (11:10→21:12)
[2016-05-17] MEDS: NICOTINE 7 MG/24 HR PATCH TD SCH (11:11)
[2016-05-17] MEDS: SODIUM CHLORIDE 0.9% FLUSH 5 ML FLUSH FLUSH SCH ×2 (11:15→21:21)
[2016-05-17] MEDS: ACETAMINOPHEN 325 MG TAB PO PRN (13:06)
--- NOTE | 2016-05-17 18:30 | HHI.PR ---
Subjective Remarks Patient seen in his bedroom no new issues, continue management by order fulfillment specialist and child welfare specialist. Objective Vital Signs Date Time Temp Pulse Resp B/P Pulse Ox O2 Delivery O2 Flow Rate FiO2 05/17/16 17:00 99.2 78 18 109/68 93 05/17/16 12:05 101.4 81 20 113/69 94 05/17/16 10:21 98 T-piece 5.00 28 05/17/16 08:15 95.8 86 20 121/76 92 05/17/16 04:00 97.5 87 18 142/78 96 05/17/16 00:00 98.1 71 17 120/73 96 05/16/16 20:00 98.9 72 17 125/73 95 05/16/16 19:51 95 Trach Collar 28 I/O 05/16/16 05/16/16 05/16/16 05/17/16 05/17/16 05/17/16 07:00 15:00 23:00 07:00 15:00 23:00 Intake Total 60 ml 480 ml 240 ml 240 ml Balance 60 ml 480 ml 240 ml 240 ml Intake Oral 60 ml 480 ml 240 ml 240 ml # Voids 1 3 1 1 # Bowel Movements 0 1 Result Diagram: 05/15/16 0554 05/15/16 0554 Imaging Last Impressions Chest X-Ray 05/10/16 0000 Signed Impressions: Service Date/Time: Tuesday, May 10, 2016 11:23 - CONCLUSION: Atelectasis at the lung bases. No other acute cardiopulmonary disease identified. Suhail Calderon MD Gastrostomy Tube Placement 05/06/16 0000 Signed Impressions: Service Date/Time: Friday, May 06, 2016 13:15 - CONCLUSION: Uncomplicated gastrostomy tube placement as above. Fabian Blackwood Jr., MD Chest CT 05/03/16 0000 Signed Impressions: Service Date/Time: Tuesday, May 03, 2016 11:33 - CONCLUSION: 1. Emphysema and right upper lobe scarring. Scarring is mildly nodular but still most likely benign. Six-month followup noncontrast chest CT recommended. 2. No lymphadenopathy. 3. Coronary artery calcification. John Mcdonnell MD Abdomen/Pelvis CT 05/03/16 0000 Signed Impressions: Service Date/Time: Tuesday, May 03, 2016 11:33 - CONCLUSION: 1. No malignancy or other acute abnormality seen within the abdomen or pelvis. 2. Diverticulosis of the colon without acute inflammatory changes. 3. Atherosclerotic aorta. No aneurysm. John Mcdonnell MD Neck CT 05/01/16 0000 Signed Impressions: Service Date/Time: April 13:51 - CONCLUSION: 1. Large mass involving the larynx measuring 3.5 x 2.0 cm causing significant compromise to the airway. No adenopathy observed. Malignancy is felt most likely. 2. Severe emphysematous changes. 3. Areas of probable scarring involving the right lung apex. This is nodular in appearance in one area that is partially visualized. I suggest a CT of the thorax to further evaluate. Fabian Blackwood Jr., MD Procedures 05/05/16 Laryngeal mass biopsy 05/05/16 tracheostomy Other Results Laboratory Tests Test 05/13/16 05/15/16 06:37 05:54 Phosphorus Level 3.1 MG/DL Magnesium Level 2.0 MG/DL White Blood Count 9.9 TH/MM3 Red Blood Count 4.05 MIL/MM3 Hemoglobin 12.8 GM/DL Hematocrit 37.1 % Mean Corpuscular Volume 91.6 FL Mean Corpuscular Hemoglobin 31.6 PG Mean Corpuscular Hemoglobin 34.6 % Concent Red Cell Distribution Width 13.6 % Platelet Count 352 TH/MM3 Mean Platelet Volume 7.1 FL Neutrophils (%) (Auto) 60.9 % Lymphocytes (%) (Auto) 22.2 % Monocytes (%) (Auto) 10.0 % Eosinophils (%) (Auto) 6.0 % Basophils (%) (Auto) 0.9 % Neutrophils # (Auto) 6.0 TH/MM3 Lymphocytes # (Auto) 2.2 TH/MM3 Monocytes # (Auto) 1.0 TH/MM3 Eosinophils # (Auto) 0.6 TH/MM3 Basophils # (Auto) 0.1 TH/MM3 CBC Comment DIFF FINAL Differential Comment Sodium Level 141 MEQ/L Potassium Level 4.2 MEQ/L Chloride Level 103 MEQ/L Carbon Dioxide Level 29.4 MEQ/L Anion Gap 9 MEQ/L Blood Urea Nitrogen 19 MG/DL Creatinine 0.59 MG/DL Estimat Glomerular Filtration 141 ML/MIN Rate Random Glucose 80 MG/DL Calcium Level 8.6 MG/DL Total Bilirubin 0.2 MG/DL Aspartate Amino Transf 20 U/L (AST/SGOT) Alanine Aminotransferase 33 U/L (ALT/SGPT) Alkaline Phosphatase 86 U/L Total Protein 6.5 GM/DL Albumin 2.7 GM/DL Objective Remarks General: No acute distress. Trach. Heart: Regular rate and rhythm. No murmur. Lungs: Clear to auscultation bilaterally. No wheezes, rales, or rhonchi. Breathing is nonlabored. Abdomen: Soft, nontender, nondistended. PEG tube in place - C/D/I Extremities: No lower extremity edema. No calf tenderness. Psych: Alert and oriented. Nonverbal. Medications and IVs Current Medications Medications (Trade) Dose Ordered Sig/Darryl Route Start Time Stop Time Status Last Admin (NS Flush) 2 ml UNSCH PRN FLUSH 05/01/16 15:15 (NS Flush) 2 ml BID FLUSH 05/01/16 21:00 05/17/16 11:15 (Zofran Inj) 4 mg Q6H PRN IVP 05/01/16 15:15 05/07/16 18:03 (Reglan Inj) 5 mg Q8H PRN IV PUSH 05/07/16 22:15 05/07/16 22:12 (Colace) 100 mg TID PO 05/08/16 09:00 05/17/16 18:10 (Habitrol 7 Mg Patch.24 Hr) 1 patch DAILY TD 05/09/16 16:00 05/17/16 11:11 Miscellaneous Information 1 1 HS TD 05/09/16 21:00 05/16/16 19:45 (Maxipime Inj/NS Inj) 100 ml @ 200 mls/hr Q8H IV 05/11/16 18:00 05/17/16 18:11 (Robitussin Dm 200-20 Mg/10 ml Liq) 10 ml Q6H PRN PO 05/11/16 17:00 05/13/16 04:13 (Mucinex Er) 600 mg BID PO 05/11/16 21:30 05/17/16 11:10 (Tessalon) 200 mg TID PRN PO 05/11/16 21:30 05/14/16 20:39 (Tylenol) 650 mg Q6HR PRN PO 05/11/16 21:30 05/17/16 13:06 (Protonix) 40 mg DAILY PO 05/12/16 09:00 05/17/16 11:09 (Lovenox Inj) 40 mg Q24H SQ 05/12/16 06:00 05/17/16 05:23 (Tylenol) 650 mg Q6H PRN PO 05/13/16 11:15 (Percocet 5-325 Mg) 1 tab Q6H PRN PO 05/13/16 11:15 (Percocet 10-325 Mg) 1 tab Q6H PRN PO 05/13/16 11:15 05/17/16 17:33 (Morphine Inj) 4 mg Q3H PRN IV 05/13/16 11:15 05/17/16 18:07 (Narcan Inj) 0.4 mg UNSCH PRN IV 05/13/16 11:15 A/P Assessment and Plan 1. Laryngeal Mass Invasive Squamous Cell Carcinoma, order fulfillment specialist following, ENT, General desktop support specialist Status post Biopsy of the mass, Status post Tracheostomy, Radiation order fulfillment specialist consulted PEG tube placed on 05/06/16, Dietary consult requested. On Regular diet as per Surgery, Speech therapy following. 2. COPD continue Bronchodilator, Mucolytic and Incentive spirometry. 3. Tobacco dependence Strongly recommended to stop smoking 4. Pneumonia HCAP bilateral bases infiltrates. on Vancomycin and Cefepime Pseudomonas Aeruginosa fluorescens. Discontinued Vancomycin. continued Cefepime. transition to Levaquin by tomorrow DVT prophylaxis with Lovenox. Discharge Planning Awaiting final by child welfare specialist for discharge. Jarred Cruz MD May 17, 2016 18:30 Jarred Cruz MD May 17, 2016 18:30
[2016-05-17] MEDS: RESP: ALBUTEROL 2.5 MG/IPRATROPIUM 0.5 MG NEB (SCH) INH (20:37)
[2016-05-17] MEDS: REMOVE OLD NICODERM (NICOTINE) PATCH TD SCH (21:00)
[2016-05-18] VITALS (9 sets, daily range): BP systolic 111–125; BP diastolic 69–83; PULSE 70–89; RESP 18–20; TEMP 98.2–99.2; O2SAT 94–99
[2016-05-18] MEDS: oxyCODONE/ACETAMINOPHEN 10 MG/325 MG TAB PO PRN ×4 (01:35→22:33)
[2016-05-18] MEDS: CEFEPIME INJ 1,000 MG in SODIUM CHLORIDE 0.9% INJ 100 ML IV SCH ×2 (01:35→10:26)
[2016-05-18] MEDS: ENOXAPARIN SODIUM 40 MG/0.4 ML SYRINGE SQ SCH (06:00)
[2016-05-18] MEDS: MORPHINE SULFATE 4 MG/ML INJ IV PRN ×5 (06:24→22:28)
[2016-05-18] MEDS: SODIUM CHLORIDE 0.9% FLUSH 5 ML FLUSH FLUSH SCH ×2 (07:50→20:26)
[2016-05-18] MEDS: guaiFENesin E.R. 600 MG TAB PO SCH ×2 (07:51→20:26)
[2016-05-18] MEDS: PANTOPRAZOLE SOD 40 MG DELAYED RELEASE TAB PO SCH (07:51)
[2016-05-18] MEDS: DOCUSATE SODIUM 100 MG CAP PO SCH ×3 (07:51→16:57)
[2016-05-18] MEDS: NICOTINE 7 MG/24 HR PATCH TD SCH (07:52)
[2016-05-18] MEDS: REMOVE OLD NICODERM (NICOTINE) PATCH TD SCH (07:52)
[2016-05-18] MEDS: RESP: ALBUTEROL 2.5 MG/IPRATROPIUM 0.5 MG NEB (SCH) INH ×3 (09:03→20:07)
--- NOTE | 2016-05-18 16:08 | HHI.PR ---
Subjective Remarks Seen in the room no nausea, vomit or diarrhea, discussed with nurse Erik Andrade as per consumer education specialist to remove Tracheostomy when possible. Objective Vital Signs Date Time Temp Pulse Resp B/P Pulse Ox O2 Delivery O2 Flow Rate FiO2 05/18/16 13:15 98.5 75 18 121/80 97 05/18/16 09:03 96 21 05/18/16 08:00 98.6 70 20 119/77 99 05/18/16 07:00 20 05/18/16 04:00 98.2 75 19 114/83 97 05/18/16 02:36 20 05/18/16 00:00 99.2 81 18 125/69 94 05/17/16 20:37 95 Trach Collar 5.00 28 05/17/16 20:00 98.0 81 17 115/69 95 05/17/16 17:00 99.2 78 18 109/68 93 I/O 05/17/16 05/17/16 05/17/16 05/18/16 05/18/16 05/18/16 07:00 15:00 23:00 07:00 15:00 23:00 Intake Total 240 ml 240 ml 480 ml Balance 240 ml 240 ml 480 ml Intake Oral 240 ml 240 ml 480 ml # Voids 1 1 1 # Bowel Movements 0 Result Diagram: 05/15/16 0554 05/15/16 0554 Imaging Last Impressions Chest X-Ray 05/10/16 0000 Signed Impressions: Service Date/Time: Tuesday, May 10, 2016 11:23 - CONCLUSION: Atelectasis at the lung bases. No other acute cardiopulmonary disease identified. Suhail Calderon MD Gastrostomy Tube Placement 05/06/16 0000 Signed Impressions: Service Date/Time: Friday, May 06, 2016 13:15 - CONCLUSION: Uncomplicated gastrostomy tube placement as above. Fabian Blackwood Jr., MD Chest CT 05/03/16 0000 Signed Impressions: Service Date/Time: Tuesday, May 03, 2016 11:33 - CONCLUSION: 1. Emphysema and right upper lobe scarring. Scarring is mildly nodular but still most likely benign. Six-month followup noncontrast chest CT recommended. 2. No lymphadenopathy. 3. Coronary artery calcification. John Mcdonnell MD Abdomen/Pelvis CT 05/03/16 0000 Signed Impressions: Service Date/Time: Tuesday, May 03, 2016 11:33 - CONCLUSION: 1. No malignancy or other acute abnormality seen within the abdomen or pelvis. 2. Diverticulosis of the colon without acute inflammatory changes. 3. Atherosclerotic aorta. No aneurysm. John Mcdonnell MD Neck CT 05/01/16 0000 Signed Impressions: Service Date/Time: April 13:51 - CONCLUSION: 1. Large mass involving the larynx measuring 3.5 x 2.0 cm causing significant compromise to the airway. No adenopathy observed. Malignancy is felt most likely. 2. Severe emphysematous changes. 3. Areas of probable scarring involving the right lung apex. This is nodular in appearance in one area that is partially visualized. I suggest a CT of the thorax to further evaluate. Fabian Blackwood Jr., MD Procedures 05/05/16 Laryngeal mass biopsy 05/05/16 tracheostomy Other Results Laboratory Tests Test 05/15/16 05:54 White Blood Count 9.9 TH/MM3 Red Blood Count 4.05 MIL/MM3 Hemoglobin 12.8 GM/DL Hematocrit 37.1 % Mean Corpuscular Volume 91.6 FL Mean Corpuscular Hemoglobin 31.6 PG Mean Corpuscular Hemoglobin 34.6 % Concent Red Cell Distribution Width 13.6 % Platelet Count 352 TH/MM3 Mean Platelet Volume 7.1 FL Neutrophils (%) (Auto) 60.9 % Lymphocytes (%) (Auto) 22.2 % Monocytes (%) (Auto) 10.0 % Eosinophils (%) (Auto) 6.0 % Basophils (%) (Auto) 0.9 % Neutrophils # (Auto) 6.0 TH/MM3 Lymphocytes # (Auto) 2.2 TH/MM3 Monocytes # (Auto) 1.0 TH/MM3 Eosinophils # (Auto) 0.6 TH/MM3 Basophils # (Auto) 0.1 TH/MM3 CBC Comment DIFF FINAL Differential Comment Sodium Level 141 MEQ/L Potassium Level 4.2 MEQ/L Chloride Level 103 MEQ/L Carbon Dioxide Level 29.4 MEQ/L Anion Gap 9 MEQ/L Blood Urea Nitrogen 19 MG/DL Creatinine 0.59 MG/DL Estimat Glomerular Filtration 141 ML/MIN Rate Random Glucose 80 MG/DL Calcium Level 8.6 MG/DL Total Bilirubin 0.2 MG/DL Aspartate Amino Transf 20 U/L (AST/SGOT) Alanine Aminotransferase 33 U/L (ALT/SGPT) Alkaline Phosphatase 86 U/L Total Protein 6.5 GM/DL Albumin 2.7 GM/DL Objective Remarks General: No acute distress. Trach. Heart: Regular rate and rhythm. No murmur. Lungs: Clear to auscultation bilaterally. No wheezes, rales, or rhonchi. Breathing is nonlabored. Abdomen: Soft, nontender, nondistended. PEG tube in place - C/D/I Extremities: No lower extremity edema. No calf tenderness. Psych: Alert and oriented. Nonverbal. Medications and IVs Current Medications Medications (Trade) Dose Ordered Sig/Darryl Route Start Time Stop Time Status Last Admin (NS Flush) 2 ml UNSCH PRN FLUSH 05/01/16 15:15 (NS Flush) 2 ml BID FLUSH 05/01/16 21:00 05/18/16 07:50 (Zofran Inj) 4 mg Q6H PRN IVP 05/01/16 15:15 05/07/16 18:03 (Reglan Inj) 5 mg Q8H PRN IV PUSH 05/07/16 22:15 05/07/16 22:12 (Colace) 100 mg TID PO 05/08/16 09:00 05/18/16 14:43 (Habitrol 7 Mg Patch.24 Hr) 1 patch DAILY TD 05/09/16 16:00 05/18/16 07:52 Miscellaneous Information 1 1 HS TD 05/09/16 21:00 05/18/16 07:52 (Maxipime Inj/NS Inj) 100 ml @ 200 mls/hr Q8H IV 05/11/16 18:00 05/18/16 10:26 (Robitussin Dm 200-20 Mg/10 ml Liq) 10 ml Q6H PRN PO 05/11/16 17:00 05/13/16 04:13 (Mucinex Er) 600 mg BID PO 05/11/16 21:30 05/18/16 07:51 (Tessalon) 200 mg TID PRN PO 05/11/16 21:30 05/14/16 20:39 (Tylenol) 650 mg Q6HR PRN PO 05/11/16 21:30 05/17/16 13:06 (Protonix) 40 mg DAILY PO 05/12/16 09:00 05/18/16 07:51 (Lovenox Inj) 40 mg Q24H SQ 05/12/16 06:00 05/18/16 06:00 (Tylenol) 650 mg Q6H PRN PO 05/13/16 11:15 (Percocet 5-325 Mg) 1 tab Q6H PRN PO 05/13/16 11:15 (Percocet 10-325 Mg) 1 tab Q6H PRN PO 05/13/16 11:15 05/18/16 10:26 (Morphine Inj) 4 mg Q3H PRN IV 05/13/16 11:15 05/18/16 12:05 (Narcan Inj) 0.4 mg UNSCH PRN IV 05/13/16 11:15 A/P Assessment and Plan 1. Laryngeal Mass Invasive Squamous Cell Carcinoma, pre certification specialist following, ENT, General site acquisition specialist Status post Biopsy of the mass, Status post Tracheostomy, Radiation pre certification specialist consulted PEG tube placed on 05/06/16, Dietary consult requested. On Regular diet as per Surgery, Speech therapy following. 2. COPD continue Bronchodilator, Mucolytic and Incentive spirometry. 3. Tobacco dependence Strongly recommended to stop smoking 4. Pneumonia HCAP bilateral bases infiltrates. on Vancomycin and Cefepime Pseudomonas Aeruginosa fluorescens. Discontinued Vancomycin. discontinued Cefepime and switch to Levaquin. patient improving clinically if continue afebrile to remove antibiotics in two days. DVT prophylaxis with Lovenox. Discharge Planning Awaiting final by consumer education specialist for discharge. crisis manager for discharge. Jarred Cruz MD May 18, 2016 16:07
[2016-05-19] VITALS (7 sets, daily range): BP systolic 110–118; BP diastolic 69–79; PULSE 80–84; RESP 18–20; TEMP 97.2–98.9; O2SAT 93–96
[2016-05-19] MEDS: ENOXAPARIN SODIUM 40 MG/0.4 ML SYRINGE SQ SCH (06:05)
[2016-05-19] MEDS: MORPHINE SULFATE 4 MG/ML INJ IV PRN ×2 (06:05→21:19)
[2016-05-19] MEDS: oxyCODONE/ACETAMINOPHEN 10 MG/325 MG TAB PO PRN ×3 (06:09→16:52)
[2016-05-19] MEDS: RESP: ALBUTEROL 2.5 MG/IPRATROPIUM 0.5 MG NEB (SCH) INH ×3 (07:43→20:19)
--- NOTE | 2016-05-19 08:12 | HHI.PR ---
Subjective Remarks Seen in the room no nausea, vomit or diarrhea, discussed with nurse Mr. Andrade as per network diagnostic support specialist to remove Tracheostomy when possible. No changes to anterior assessment, stable following specialist recommendations Objective Vital Signs Date Time Temp Pulse Resp B/P Pulse Ox O2 Delivery O2 Flow Rate FiO2 05/19/16 07:52 95 05/19/16 04:00 98.4 82 18 112/72 96 05/18/16 23:53 98.5 82 18 111/70 96 05/18/16 20:06 95 05/18/16 20:00 98.8 86 19 116/75 97 05/18/16 16:00 89 18 122/79 96 05/18/16 13:15 98.5 75 18 121/80 97 05/18/16 09:03 96 21 I/O 05/18/16 05/18/16 05/18/16 05/19/16 05/19/16 05/19/16 07:00 15:00 23:00 07:00 15:00 23:00 Intake Total 480 ml 1080 ml 480 ml 720 ml Balance 480 ml 1080 ml 480 ml 720 ml Intake Oral 480 ml 1080 ml 480 ml Tube Feeding 480 ml Other 240 ml # Voids 1 3 1 1 # Bowel Movements 0 1 0 0 Result Diagram: 05/15/16 0554 05/15/16 0554 Imaging Last Impressions Chest X-Ray 05/10/16 0000 Signed Impressions: Service Date/Time: Tuesday, May 10, 2016 11:23 - CONCLUSION: Atelectasis at the lung bases. No other acute cardiopulmonary disease identified. Suhail Calderon MD Gastrostomy Tube Placement 05/06/16 0000 Signed Impressions: Service Date/Time: Friday, May 06, 2016 13:15 - CONCLUSION: Uncomplicated gastrostomy tube placement as above. Fabian Blackwood Jr., MD Chest CT 05/03/16 0000 Signed Impressions: Service Date/Time: Tuesday, May 03, 2016 11:33 - CONCLUSION: 1. Emphysema and right upper lobe scarring. Scarring is mildly nodular but still most likely benign. Six-month followup noncontrast chest CT recommended. 2. No lymphadenopathy. 3. Coronary artery calcification. John Mcdonnell MD Abdomen/Pelvis CT 05/03/16 0000 Signed Impressions: Service Date/Time: Tuesday, May 03, 2016 11:33 - CONCLUSION: 1. No malignancy or other acute abnormality seen within the abdomen or pelvis. 2. Diverticulosis of the colon without acute inflammatory changes. 3. Atherosclerotic aorta. No aneurysm. John Mcdonnell MD Neck CT 05/01/16 0000 Signed Impressions: Service Date/Time: April 13:51 - CONCLUSION: 1. Large mass involving the larynx measuring 3.5 x 2.0 cm causing significant compromise to the airway. No adenopathy observed. Malignancy is felt most likely. 2. Severe emphysematous changes. 3. Areas of probable scarring involving the right lung apex. This is nodular in appearance in one area that is partially visualized. I suggest a CT of the thorax to further evaluate. Fabian Blackwood Jr., MD Procedures 05/05/16 Laryngeal mass biopsy 05/05/16 tracheostomy Other Results Laboratory Tests Test 05/15/16 05:54 White Blood Count 9.9 TH/MM3 Red Blood Count 4.05 MIL/MM3 Hemoglobin 12.8 GM/DL Hematocrit 37.1 % Mean Corpuscular Volume 91.6 FL Mean Corpuscular Hemoglobin 31.6 PG Mean Corpuscular Hemoglobin 34.6 % Concent Red Cell Distribution Width 13.6 % Platelet Count 352 TH/MM3 Mean Platelet Volume 7.1 FL Neutrophils (%) (Auto) 60.9 % Lymphocytes (%) (Auto) 22.2 % Monocytes (%) (Auto) 10.0 % Eosinophils (%) (Auto) 6.0 % Basophils (%) (Auto) 0.9 % Neutrophils # (Auto) 6.0 TH/MM3 Lymphocytes # (Auto) 2.2 TH/MM3 Monocytes # (Auto) 1.0 TH/MM3 Eosinophils # (Auto) 0.6 TH/MM3 Basophils # (Auto) 0.1 TH/MM3 CBC Comment DIFF FINAL Differential Comment Sodium Level 141 MEQ/L Potassium Level 4.2 MEQ/L Chloride Level 103 MEQ/L Carbon Dioxide Level 29.4 MEQ/L Anion Gap 9 MEQ/L Blood Urea Nitrogen 19 MG/DL Creatinine 0.59 MG/DL Estimat Glomerular Filtration 141 ML/MIN Rate Random Glucose 80 MG/DL Calcium Level 8.6 MG/DL Total Bilirubin 0.2 MG/DL Aspartate Amino Transf 20 U/L (AST/SGOT) Alanine Aminotransferase 33 U/L (ALT/SGPT) Alkaline Phosphatase 86 U/L Total Protein 6.5 GM/DL Albumin 2.7 GM/DL Objective Remarks General: No acute distress. Trach. Heart: Regular rate and rhythm. No murmur. Lungs: Clear to auscultation bilaterally. No wheezes, rales, or rhonchi. Breathing is nonlabored. Abdomen: Soft, nontender, nondistended. PEG tube in place - C/D/I Extremities: No lower extremity edema. No calf tenderness. Psych: Alert and oriented. Nonverbal. Medications and IVs Current Medications Medications (Trade) Dose Ordered Sig/Darryl Route Start Time Stop Time Status Last Admin (NS Flush) 2 ml UNSCH PRN FLUSH 05/01/16 15:15 (NS Flush) 2 ml BID FLUSH 05/01/16 21:00 05/18/16 20:26 (Zofran Inj) 4 mg Q6H PRN IVP 05/01/16 15:15 05/07/16 18:03 (Reglan Inj) 5 mg Q8H PRN IV PUSH 05/07/16 22:15 05/07/16 22:12 (Colace) 100 mg TID PO 05/08/16 09:00 05/18/16 16:57 (Habitrol 7 Mg Patch.24 Hr) 1 patch DAILY TD 05/09/16 16:00 05/18/16 07:52 Miscellaneous Information 1 HS TD 05/09/16 21:00 05/18/16 07:52 (Robitussin Dm 200-20 Mg/10 ml Liq) 10 ml Q6H PRN PO 05/11/16 17:00 05/13/16 04:13 (Mucinex Er) 600 mg BID PO 05/11/16 21:30 05/18/16 20:26 (Tessalon) 200 mg TID PRN PO 05/11/16 21:30 05/14/16 20:39 (Tylenol) 650 mg Q6HR PRN PO 05/11/16 21:30 05/17/16 13:06 (Protonix) 40 mg DAILY PO 05/12/16 09:00 05/18/16 07:51 (Lovenox Inj) 40 mg Q24H SQ 05/12/16 06:00 05/19/16 06:05 (Tylenol) 650 mg Q6H PRN PO 05/13/16 11:15 (Percocet 5-325 Mg) 1 tab Q6H PRN PO 05/13/16 11:15 (Percocet 10-325 Mg) 1 tab Q6H PRN PO 05/13/16 11:15 05/19/16 06:09 (Morphine Inj) 4 mg Q3H PRN IV 05/13/16 11:15 05/19/16 06:05 (Narcan Inj) 0.4 mg UNSCH PRN IV 05/13/16 11:15 (Levaquin) 750 mg DAILY PO 05/19/16 09:00 A/P Assessment and Plan 1. Laryngeal Mass Invasive Squamous Cell Carcinoma, program production specialist following, ENT, General clinical implementation specialist Status post Biopsy of the mass, Status post Tracheostomy, Radiation program production specialist consulted PEG tube placed on 05/06/16, Dietary consult requested. On Regular diet as per Surgery, Speech therapy following. 2. COPD continue Bronchodilator, Mucolytic and Incentive spirometry. 3. Tobacco dependence Strongly recommended to stop smoking 4. Pneumonia HCAP bilateral bases infiltrates. on Vancomycin and Cefepime Pseudomonas Aeruginosa fluorescens. Discontinued Vancomycin. discontinued Cefepime and switch to Levaquin. patient improving clinically if continue afebrile to remove antibiotics in one day DVT prophylaxis with Lovenox. Discharge Planning Awaiting final by network diagnostic support specialist and Oncology for discharge traffic i manager for discharge. Jarred Cruz MD May 19, 2016 08:12
[2016-05-19 08:18] LABS: BICARBONATE 28.2 MEQ/L (21.0-32.0); POTASSIUM 4.4 MEQ/L (3.5-5.1)
[2016-05-19] MEDS: NICOTINE 7 MG/24 HR PATCH TD SCH (09:12)
[2016-05-19] MEDS: PANTOPRAZOLE SOD 40 MG DELAYED RELEASE TAB PO SCH (09:14)
[2016-05-19] MEDS: DOCUSATE SODIUM 100 MG CAP PO SCH ×3 (09:14→16:51)
[2016-05-19] MEDS: guaiFENesin E.R. 600 MG TAB PO SCH ×2 (09:14→21:18)
[2016-05-19] MEDS: LEVOFLOXACIN 750 MG TAB PO SCH (09:14)
[2016-05-19] MEDS: SODIUM CHLORIDE 0.9% FLUSH 5 ML FLUSH FLUSH SCH ×2 (09:15→21:19)
--- NOTE | 2016-05-19 16:38 | HHI.PR ---
Subjective Remarks ALERT NO SOB TRACH OK Objective Vital Signs Date Time Temp Pulse Resp B/P Pulse Ox O2 Delivery O2 Flow Rate FiO2 05/19/16 15:30 97.2 82 20 110/70 94 05/19/16 12:18 16 05/19/16 11:26 97.8 84 20 118/79 95 05/19/16 07:52 95 05/19/16 07:50 98.9 80 20 110/69 94 05/19/16 04:00 98.4 82 18 112/72 96 05/18/16 23:53 98.5 82 18 111/70 96 05/18/16 20:06 95 05/18/16 20:00 98.8 86 19 116/75 97 I/O 05/18/16 05/18/16 05/18/16 05/19/16 05/19/16 05/19/16 07:00 15:00 23:00 07:00 15:00 23:00 Intake Total 480 ml 1080 ml 480 ml 720 ml Balance 480 ml 1080 ml 480 ml 720 ml Intake Oral 480 ml 1080 ml 480 ml Tube Feeding 480 ml Other 240 ml # Voids 1 3 1 1 # Bowel Movements 0 1 0 0 Result Diagram: 05/15/16 0554 05/19/16 0625 Procedures 05/05/16 Laryngeal mass biopsy 05/05/16 tracheostomy Objective Remarks GENERAL: SKIN: Warm and dry. HEAD: Atraumatic. Normocephalic. EYES: Pupils equal and round. No scleral icterus. No injection or drainage. ENT: No nasal bleeding or discharge. Mucous membranes pink and moist. NECK: Trachea midline. No JVD. TRACH IN PLACE CARDIOVASCULAR: Regular rate and rhythm. RESPIRATORY: No accessory muscle use. Clear to auscultation. Breath sounds equal bilaterally. GASTROINTESTINAL: Abdomen soft, non-tender, nondistended. Hepatic and splenic margins not palpable. MUSCULOSKELETAL: Extremities without clubbing, cyanosis, or edema. No obvious deformities. NEUROLOGICAL: Awake and alert. No obvious cranial nerve deficits. Motor grossly within normal limits. Five out of 5 muscle strength in the arms and legs. Normal speech. PSYCHIATRIC: Appropriate mood and affect; insight and judgment normal. Assessment and Plan Assessment and Plan LARYNGEAL CA S/P TRACH PLAN PULM TOILET REMOVE TRACHEOSTOMY WHEN POSSIBLE Kamran Andrew MD May 19, 2016 16:38
[2016-05-19] MEDS: REMOVE OLD NICODERM (NICOTINE) PATCH TD SCH (21:00)
[2016-05-20] VITALS (8 sets, daily range): BP systolic 111–125; BP diastolic 68–77; PULSE 75–99; RESP 16–18; TEMP 96.5–98.5; O2SAT 92–98
[2016-05-20] MEDS: oxyCODONE/ACETAMINOPHEN 10 MG/325 MG TAB PO PRN ×2 (02:55→20:05)
[2016-05-20] MEDS: ENOXAPARIN SODIUM 40 MG/0.4 ML SYRINGE SQ SCH (04:55)
--- NOTE | 2016-05-20 07:59 | PD.ONC.PN ---
Subjective Subjective Remarks Patient seen and examined, he reports soreness and throat but otherwise reports feeling well. He tells me the phlegm production has decreased and that he is reading more comfortably. Objective Data Date Time Temp Pulse Resp B/P Pulse Ox O2 Delivery O2 Flow Rate FiO2 05/20/16 04:00 97.8 75 18 112/69 94 05/20/16 03:55 18 05/20/16 00:00 97.7 78 17 120/68 94 05/19/16 22:19 18 05/19/16 20:20 95 Nasal Cannula 05/19/16 20:00 97.9 83 18 116/74 93 05/19/16 15:30 97.2 82 20 110/70 94 05/19/16 11:26 97.8 84 20 118/79 95 Result Diagram: 05/19/16 0625 Administered Medications Medications (Trade) Dose Ordered Sig/Darryl Route PRN Reason Start Time Stop Time Status Last Admin Dose Admin IV Flush (NS Flush) 2 ml BID FLUSH 05/01/16 21:00 05/19/16 21:19 Ondansetron HCl (Zofran Inj) 4 mg Q6H PRN IVP NAUSEA OR VOMITING 05/01/16 15:15 05/07/16 18:03 Metoclopramide HCl (Reglan Inj) 5 mg Q8H PRN IV PUSH NAUSEA 05/07/16 22:15 05/07/16 22:12 Docusate Sodium (Colace) 100 mg TID PO 05/08/16 09:00 05/19/16 16:51 Nicotine (Habitrol 7 Mg Patch.24 Hr) 1 patch DAILY TD 05/09/16 16:00 05/19/16 09:12 Miscellaneous Information 1 HS TD 05/09/16 21:00 05/19/16 21:00 Guaifenesin/ Dextromethorphan (Robitussin Dm 200-20 Mg/10 ml Liq) 10 ml Q6H PRN PO COUGH 05/11/16 17:00 05/13/16 04:13 Guaifenesin (Mucinex Er) 600 mg BID PO 05/11/16 21:30 05/19/16 21:18 Benzonatate (Tessalon) 200 mg TID PRN PO cough interfering w/rest 05/11/16 21:30 05/14/16 20:39 Acetaminophen (Tylenol) 650 mg Q6HR PRN PO fever > 100.4 05/11/16 21:30 05/17/16 13:06 Pantoprazole Sodium (Protonix) 40 mg DAILY PO 05/12/16 09:00 05/19/16 09:14 Enoxaparin Sodium (Lovenox Inj) 40 mg Q24H SQ 05/12/16 06:00 05/20/16 04:55 Oxycodone/ Acetaminophen (Percocet 10-325 Mg) 1 tab Q6H PRN PO PAIN SCALE 6 TO 10 05/13/16 11:15 05/20/16 02:55 Morphine Sulfate (Morphine Inj) 4 mg Q3H PRN IV BREAKTHROUGH PAIN 05/13/16 11:15 05/19/16 21:19 Levofloxacin (Levaquin) 750 mg DAILY PO 05/19/16 09:00 05/19/16 09:14 Objective Remarks GENERAL: Middle-aged male, sitting up in bed, interval placement of tracheostomy. He sitting up in bed, coughing frequently, producing copious amounts of thick yellow phlegm. SKIN: Warm and dry. HEAD: Normocephalic. EYES: No scleral icterus. No injection or drainage. NECK: Supple, trachea midline. No JVD or lymphadenopathy. LYMPHATIC: No adenopathy. CARDIOVASCULAR: Regular rate and rhythm without murmurs. RESPIRATORY: Prolonged expiratory phase, scattered rhonchi. GASTROINTESTINAL: Abdomen soft, non-tender, nondistended. Feeding tube placement. EXTREMITIES: No cyanosis, or edema. MUSCULOSKELETAL: Adequate muscle tone. NEUROLOGICAL: No obvious focal deficit. Awake, alert, and oriented x3. PSYCHIATRIC: Appropriate mood and affect; insight and judgment normal. 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 +7-month history of progressive pain/soreness of the throat. two-month history of progressive difficulty breathing on inhalation. +hoarse voice --no difficulty swallowing or hemoptysis or hematemesis. --flexible laryngoscopy at bedside showed exophytic mass centered along the left false vocal cord was appreciated w/ submucosal extension. Plan 1. Squamous cell carcinoma of the larynx: Clinically staged as T4 N0 M0 disease of the glottic larynx. Initiate weekly cisplatin 40 mg per metered squared starting 05/20/2016. Radiation will be started on 05/21/2016. Labs reviewed including renal function which is normal. I did talk to the patient this morning about initiation of chemotherapy, chemotherapy teaching provided and consent obtained. Recommend weekly CBC and CMP on Mondays. I will plan to dose him with chemotherapy every Thursday while he is here. Once radiation starts I will be Thursday through Thursday for approximately 7 weeks. The oncology service will continue following with you. Urban Lofton MD May 20, 2016 07:59
[2016-05-20] MEDS: RESP: ALBUTEROL 2.5 MG/IPRATROPIUM 0.5 MG NEB (SCH) INH ×3 (08:33→19:52)
[2016-05-20] MEDS: LEVOFLOXACIN 750 MG TAB PO SCH (08:45)
[2016-05-20] MEDS: DOCUSATE SODIUM 100 MG CAP PO SCH ×3 (08:45→16:30)
[2016-05-20] MEDS: guaiFENesin E.R. 600 MG TAB PO SCH ×2 (08:45→20:04)
[2016-05-20] MEDS: PANTOPRAZOLE SOD 40 MG DELAYED RELEASE TAB PO SCH (08:45)
[2016-05-20] MEDS: NICOTINE 7 MG/24 HR PATCH TD SCH (08:46)
[2016-05-20] MEDS: SODIUM CHLORIDE 0.9% FLUSH 5 ML FLUSH FLUSH SCH ×2 (08:46→20:05)
--- NOTE | 2016-05-20 11:15 | HHI.PR ---
Subjective Remarks Seen in the room no nausea, vomit or diarrhea, discussed with nurse Genie as per adult specialist to remove Tracheostomy when possible. Stable in his bedroom no complaint. Objective Vital Signs Date Time Temp Pulse Resp B/P Pulse Ox O2 Delivery O2 Flow Rate FiO2 05/20/16 08:33 95 21 05/20/16 08:00 96.5 76 16 111/74 97 05/20/16 04:00 97.8 75 18 112/69 94 05/20/16 03:55 18 05/20/16 00:00 97.7 78 17 120/68 94 05/19/16 22:19 18 05/19/16 20:20 95 Nasal Cannula 05/19/16 20:00 97.9 83 18 116/74 93 05/19/16 15:30 97.2 82 20 110/70 94 05/19/16 11:26 97.8 84 20 118/79 95 I/O 05/19/16 05/19/16 05/19/16 05/20/16 05/20/16 05/20/16 07:00 15:00 23:00 07:00 15:00 23:00 Intake Total 720 ml 957 ml Balance 720 ml 957 ml Intake Oral 957 ml Tube Feeding 480 ml Other 240 ml # Voids 1 3 # Bowel Movements 0 1 Result Diagram: 05/19/16 0625 Imaging Last Impressions Chest X-Ray 05/10/16 0000 Signed Impressions: Service Date/Time: Tuesday, May 10, 2016 11:23 - CONCLUSION: Atelectasis at the lung bases. No other acute cardiopulmonary disease identified. Suhail Calderon MD Gastrostomy Tube Placement 05/06/16 0000 Signed Impressions: Service Date/Time: Friday, May 06, 2016 13:15 - CONCLUSION: Uncomplicated gastrostomy tube placement as above. Fabian Blackwood Jr., MD Chest CT 05/03/16 0000 Signed Impressions: Service Date/Time: Tuesday, May 03, 2016 11:33 - CONCLUSION: 1. Emphysema and right upper lobe scarring. Scarring is mildly nodular but still most likely benign. Six-month followup noncontrast chest CT recommended. 2. No lymphadenopathy. 3. Coronary artery calcification. John Mcdonnell MD Abdomen/Pelvis CT 05/03/16 0000 Signed Impressions: Service Date/Time: Tuesday, May 03, 2016 11:33 - CONCLUSION: 1. No malignancy or other acute abnormality seen within the abdomen or pelvis. 2. Diverticulosis of the colon without acute inflammatory changes. 3. Atherosclerotic aorta. No aneurysm. John Mcdonnell MD Neck CT 05/01/16 0000 Signed Impressions: Service Date/Time: April 13:51 - CONCLUSION: 1. Large mass involving the larynx measuring 3.5 x 2.0 cm causing significant compromise to the airway. No adenopathy observed. Malignancy is felt most likely. 2. Severe emphysematous changes. 3. Areas of probable scarring involving the right lung apex. This is nodular in appearance in one area that is partially visualized. I suggest a CT of the thorax to further evaluate. Fabian Blackwood Jr., MD Procedures 05/05/16 Laryngeal mass biopsy 05/05/16 tracheostomy Other Results Laboratory Tests Test 05/19/16 06:25 Sodium Level 138 MEQ/L Potassium Level 4.4 MEQ/L Chloride Level 102 MEQ/L Carbon Dioxide Level 28.2 MEQ/L Anion Gap 8 MEQ/L Blood Urea Nitrogen 16 MG/DL Creatinine 0.59 MG/DL Estimat Glomerular Filtration 141 ML/MIN Rate Random Glucose 81 MG/DL Calcium Level 8.9 MG/DL Objective Remarks General: No acute distress. Trach. Heart: Regular rate and rhythm. No murmur. Lungs: Clear to auscultation bilaterally. No wheezes, rales, or rhonchi. Breathing is nonlabored. Abdomen: Soft, nontender, nondistended. PEG tube in place - C/D/I Extremities: No lower extremity edema. No calf tenderness. Psych: Alert and oriented. Nonverbal. Medications and IVs Current Medications Medications (Trade) Dose Ordered Sig/Darryl Route Start Time Stop Time Status Last Admin (NS Flush) 2 ml UNSCH PRN FLUSH 05/01/16 15:15 (NS Flush) 2 ml BID FLUSH 05/01/16 21:00 05/20/16 08:46 (Zofran Inj) 4 mg Q6H PRN IVP 05/01/16 15:15 05/07/16 18:03 (Reglan Inj) 5 mg Q8H PRN IV PUSH 05/07/16 22:15 05/07/16 22:12 (Colace) 100 mg TID PO 05/08/16 09:00 05/20/16 08:45 (Habitrol 7 Mg Patch.24 Hr) 1 patch DAILY TD 05/09/16 16:00 05/20/16 08:46 Miscellaneous Information 1 HS TD 05/09/16 21:00 05/19/16 21:00 (Robitussin Dm 200-20 Mg/10 ml Liq) 10 ml Q6H PRN PO 05/11/16 17:00 05/13/16 04:13 (Mucinex Er) 600 mg BID PO 05/11/16 21:30 05/20/16 08:45 (Tessalon) 200 mg TID PRN PO 05/11/16 21:30 05/14/16 20:39 (Tylenol) 650 mg Q6HR PRN PO 05/11/16 21:30 05/17/16 13:06 (Protonix) 40 mg DAILY PO 05/12/16 09:00 05/20/16 08:45 (Lovenox Inj) 40 mg Q24H SQ 05/12/16 06:00 05/20/16 04:55 (Tylenol) 650 mg Q6H PRN PO 05/13/16 11:15 (Percocet 5-325 Mg) 1 tab Q6H PRN PO 05/13/16 11:15 (Percocet 10-325 Mg) 1 tab Q6H PRN PO 05/13/16 11:15 05/20/16 02:55 (Morphine Inj) 4 mg Q3H PRN IV 05/13/16 11:15 05/19/16 21:19 (Narcan Inj) 0.4 mg UNSCH PRN IV 05/13/16 11:15 Levofloxacin 750 mg 750 mg DAILY PO 05/19/16 09:00 05/20/16 08:45 Potassium Chloride 10 meq/ Sodium Chloride 505 ml @ 500 mls/hr Q1H1M IV 05/20/16 12:00 05/20/16 13:00 Potassium Chloride 10 meq/ Dextrose/Sodium Chloride 505 ml @ 500 mls/hr Q1H1M IV 05/20/16 13:00 05/20/16 14:00 (KCl Inj/ Magnesium Sulfate Inj/D5W-1/2 NS 1000 ml Inj) 1,007 ml @ 500 mls/hr Q2H1M IV 05/20/16 14:00 05/20/16 16:00 (Kytril Inj) 1 mg ONCE ONCE IV 05/20/16 12:00 05/20/16 12:01 Furosemide 40 mg 40 mg ONCE ONCE IV PUSH 05/20/16 12:00 05/20/16 12:01 (Decadron Inj/NS Inj) 52.5 ml @ 210 mls/hr ONCE ONCE IV 05/20/16 12:00 05/20/16 12:14 Mannitol 12.5 gm 12.5 gm ONCE@1230 ONCE IV 05/20/16 12:30 05/20/16 12:31 (Platinol Inj/NS Inj) 225 ml @ 225 mls/hr ONCE@1300 ONCE IV 05/20/16 13:00 05/20/16 13:59 A/P Assessment and Plan 1. Laryngeal Mass Invasive Squamous Cell Carcinoma, invoicing specialist following, ENT, General autism motor specialist Status post Biopsy of the mass, Status post Tracheostomy, continue Chemotherapy. as per adult specialist to remove tracheostomy tube PEG tube placed on 05/06/16, Dietary consult requested. On Regular diet as per Surgery, Speech therapy following. 2. COPD continue Bronchodilator, Mucolytic and Incentive spirometry. Stable. 3. Tobacco dependence Strongly recommended to stop smoking 4. Pneumonia HCAP bilateral bases infiltrates. on Vancomycin and Cefepime Pseudomonas Aeruginosa fluorescens. Discontinued Vancomycin. discontinued Cefepime and switch to Levaquin. patient improving clinically if continue afebrile to remove antibiotics today. DVT prophylaxis with Lovenox. Discharge Planning Awaiting final by adult specialist and Oncology for discharge reception centre manager for discharge. Jarred Funes MD May 20, 2016 11:15
[2016-05-20] MEDS ORDERED: FUROSEMIDE 40 MG/4 ML VIAL IV PUSH ONE (12:00)
[2016-05-20] MEDS ORDERED: DEXAMETHASONE INJ 10 MG in SODIUM CHLORIDE 0.9% INJ 50 ML IV ONE (12:00)
[2016-05-20] MEDS ORDERED: GRANISETRON HCL 1 MG/ML VIAL IV ONE (12:00)
[2016-05-20] MEDS ORDERED: SODIUM CHLORID 0.9% IV SCH (12:00)
[2016-05-20] MEDS ORDERED: POTASSIUM CHLORIDE IV SCH ×3 (12:00→14:00)
[2016-05-20] MEDS ORDERED: MANNITOL 12.5 GM/50 ML VIAL IV ONE (12:30)
[2016-05-20] MEDS ORDERED: SODIUM CHLORIDE 0.9% IV ONE (13:00)
[2016-05-20] MEDS ORDERED: DEXT 5% IV SCH (13:00)
[2016-05-20] MEDS ORDERED: NACL 0.45% IV SCH (13:00)
[2016-05-20] MEDS ORDERED: CISPLATIN IV ONE (13:00)
[2016-05-20] MEDS ORDERED: MAGNESIUM SULFATE IV SCH (14:00)
[2016-05-20] MEDS ORDERED: [UNRECOGNIZED DRUG - OTHER] IV SCH (14:00)
[2016-05-20 15:16] LABS: AUTOMATED NEUTROPHIL # 8.8 TH/MM3 (1.8-7.7); BASOPHIL # 0.1 TH/MM3 (0-0.2); BASOPHIL % 0.7 % (0.0-2.0); EOSINOPHIL # 0.3 TH/MM3 (0-0.4); EOSINOPHIL % 3.4 % (0.0-4.0); HEMATOCRIT 37.8 % (39.0-51.0); HEMO FLAGS DIFF FINAL; LYMPH % 6.7 % (9.0-44.0); LYMPHOCYTE # 0.7 TH/MM3 (1.0-4.8); MEAN CELL VOLUME 91.6 FL (80.0-100.0); MEAN CORPUSCULAR HEMOGLOBIN 30.6 PG (27.0-34.0); MEAN CORPUSCULAR HGB CONC 33.4 % (32.0-36.0); MONO % 2.5 % (0.0-8.0); NEUT % 86.7 % (16.0-70.0); PLATELET COUNT 435 TH/MM3 (150-450); RED BLOOD COUNT 4.13 MIL/MM3 (4.50-5.90); RED CELL DISTRIBUTION WIDTH 13.4 % (11.6-17.2); WHITE BLOOD COUNT 10.1 TH/MM3 (4.0-11.0)
[2016-05-20 15:35] LABS: ALT (GPT) 38 U/L (12-78); ANION GAP 9 MEQ/L (5-15); AST (GOT) 20 U/L (15-37); BICARBONATE 30.3 MEQ/L (21.0-32.0); BLOOD UREA NITROGEN 22 MG/DL (7-18); CHLORIDE 100 MEQ/L (98-107); GLOMERULAR FILTRATION RATE 102 ML/MIN (>89); SODIUM (NA) 139 MEQ/L (136-145)
[2016-05-20 15:37] LABS: ALKALINE PHOSPHATASE 84 U/L (45-117); TOTAL BILIRUBIN ADULT 0.2 MG/DL (0.2-1.0)
[2016-05-20] MEDS: REMOVE OLD NICODERM (NICOTINE) PATCH TD SCH (20:06)
[2016-05-21] VITALS (8 sets, daily range): BP systolic 105–118; BP diastolic 61–74; PULSE 66–87; RESP 16–18; TEMP 97.2–97.9; O2SAT 94–98
[2016-05-21] MEDS: oxyCODONE/ACETAMINOPHEN 10 MG/325 MG TAB PO PRN ×3 (03:53→20:23)
[2016-05-21] MEDS: ENOXAPARIN SODIUM 40 MG/0.4 ML SYRINGE SQ SCH (05:46)
[2016-05-21] MEDS: RESP: ALBUTEROL 2.5 MG/IPRATROPIUM 0.5 MG NEB (SCH) INH ×3 (07:47→19:20)
[2016-05-21] MEDS: PANTOPRAZOLE SOD 40 MG DELAYED RELEASE TAB PO SCH (09:47)
[2016-05-21] MEDS: guaiFENesin E.R. 600 MG TAB PO SCH ×2 (09:47→20:23)
[2016-05-21] MEDS: DOCUSATE SODIUM 100 MG CAP PO SCH ×3 (09:47→18:00)
[2016-05-21] MEDS: LEVOFLOXACIN 750 MG TAB PO SCH (09:47)
[2016-05-21] MEDS: NICOTINE 7 MG/24 HR PATCH TD SCH (09:48)
[2016-05-21] MEDS: MORPHINE SULFATE 4 MG/ML INJ IV PRN (13:18)
[2016-05-21] MEDS: SODIUM CHLORIDE 0.9% FLUSH 5 ML FLUSH FLUSH SCH ×2 (13:19→20:24)
--- NOTE | 2016-05-21 17:52 | HHI.PR ---
Subjective Remarks Seen in the room no nausea, vomit or diarrhea, discussed with nurse Genie as per creative services specialist to remove Tracheostomy when possible. Seen in his bedroom laying in bed no complaint, no nausea, vomit or diarrhea. Discussed with nurse Miss Han. Objective Vital Signs Date Time Temp Pulse Resp B/P Pulse Ox O2 Delivery O2 Flow Rate FiO2 05/21/16 15:44 97.9 83 16 110/74 96 05/21/16 12:00 97.7 78 16 118/71 95 05/21/16 08:00 97.4 66 16 110/73 96 05/21/16 07:50 94 21 05/21/16 04:53 18 05/21/16 04:00 97.5 76 18 105/68 95 05/21/16 00:00 97.8 86 18 107/61 94 05/20/16 20:00 98.5 99 18 121/70 93 05/20/16 19:52 92 Trach Collar 28 I/O 05/20/16 05/20/16 05/20/16 05/21/16 05/21/16 05/21/16 07:00 15:00 23:00 07:00 15:00 23:00 Intake Total 960 ml 480 ml Output Total 1000 ml 250 ml Balance -40 ml -250 ml 480 ml Intake Oral 960 ml 480 ml Output Urine Total 1000 ml 250 ml # Voids 1 3 # Bowel Movements 0 0 Result Diagram: 05/20/16 1459 05/20/16 1459 Imaging Last Impressions Chest X-Ray 05/10/16 0000 Signed Impressions: Service Date/Time: Tuesday, May 10, 2016 11:23 - CONCLUSION: Atelectasis at the lung bases. No other acute cardiopulmonary disease identified. Suhail Calderon MD Gastrostomy Tube Placement 05/06/16 0000 Signed Impressions: Service Date/Time: Friday, May 06, 2016 13:15 - CONCLUSION: Uncomplicated gastrostomy tube placement as above. Fabian Blackwood Jr., MD Chest CT 05/03/16 0000 Signed Impressions: Service Date/Time: Tuesday, May 03, 2016 11:33 - CONCLUSION: 1. Emphysema and right upper lobe scarring. Scarring is mildly nodular but still most likely benign. Six-month followup noncontrast chest CT recommended. 2. No lymphadenopathy. 3. Coronary artery calcification. John Mcdonnell MD Abdomen/Pelvis CT 05/03/16 0000 Signed Impressions: Service Date/Time: Tuesday, May 03, 2016 11:33 - CONCLUSION: 1. No malignancy or other acute abnormality seen within the abdomen or pelvis. 2. Diverticulosis of the colon without acute inflammatory changes. 3. Atherosclerotic aorta. No aneurysm. John Mcdonnell MD Neck CT 05/01/16 0000 Signed Impressions: Service Date/Time: April 13:51 - CONCLUSION: 1. Large mass involving the larynx measuring 3.5 x 2.0 cm causing significant compromise to the airway. No adenopathy observed. Malignancy is felt most likely. 2. Severe emphysematous changes. 3. Areas of probable scarring involving the right lung apex. This is nodular in appearance in one area that is partially visualized. I suggest a CT of the thorax to further evaluate. Fabian Blackwood Jr., MD Procedures 05/05/16 Laryngeal mass biopsy 05/05/16 tracheostomy Other Results Laboratory Tests Test 05/20/16 14:59 White Blood Count 10.1 TH/MM3 Red Blood Count 4.13 MIL/MM3 Hemoglobin 12.6 GM/DL Hematocrit 37.8 % Mean Corpuscular Volume 91.6 FL Mean Corpuscular Hemoglobin 30.6 PG Mean Corpuscular Hemoglobin 33.4 % Concent Red Cell Distribution Width 13.4 % Platelet Count 435 TH/MM3 Mean Platelet Volume 6.7 FL Neutrophils (%) (Auto) 86.7 % Lymphocytes (%) (Auto) 6.7 % Monocytes (%) (Auto) 2.5 % Eosinophils (%) (Auto) 3.4 % Basophils (%) (Auto) 0.7 % Neutrophils # (Auto) 8.8 TH/MM3 Lymphocytes # (Auto) 0.7 TH/MM3 Monocytes # (Auto) 0.3 TH/MM3 Eosinophils # (Auto) 0.3 TH/MM3 Basophils # (Auto) 0.1 TH/MM3 CBC Comment DIFF FINAL Differential Comment Sodium Level 139 MEQ/L Potassium Level 4.0 MEQ/L Chloride Level 100 MEQ/L Carbon Dioxide Level 30.3 MEQ/L Anion Gap 9 MEQ/L Blood Urea Nitrogen 22 MG/DL Creatinine 0.78 MG/DL Estimat Glomerular Filtration 102 ML/MIN Rate Random Glucose 139 MG/DL Calcium Level 9.1 MG/DL Total Bilirubin 0.2 MG/DL Aspartate Amino Transf 20 U/L (AST/SGOT) Alanine Aminotransferase 38 U/L (ALT/SGPT) Alkaline Phosphatase 84 U/L Total Protein 7.3 GM/DL Albumin 2.9 GM/DL Objective Remarks General: No acute distress. Trach. Heart: Regular rate and rhythm. No murmur. Lungs: Clear to auscultation bilaterally. No wheezes, rales, or rhonchi. Breathing is nonlabored. Abdomen: Soft, nontender, nondistended. PEG tube in place - C/D/I Extremities: No lower extremity edema. No calf tenderness. Psych: Alert and oriented. Nonverbal. Medications and IVs Current Medications Medications (Trade) Dose Ordered Sig/Darryl Route Start Time Stop Time Status Last Admin (NS Flush) 2 ml UNSCH PRN FLUSH 05/01/16 15:15 05/21/16 13:19 (NS Flush) 2 ml BID FLUSH 05/01/16 21:00 05/21/16 13:19 (Zofran Inj) 4 mg Q6H PRN IVP 05/01/16 15:15 05/07/16 18:03 (Reglan Inj) 5 mg Q8H PRN IV PUSH 05/07/16 22:15 05/07/16 22:12 (Colace) 100 mg TID PO 05/08/16 09:00 05/21/16 13:15 (Habitrol 7 Mg Patch.24 Hr) 1 patch DAILY TD 05/09/16 16:00 05/21/16 09:48 Miscellaneous Information 1 HS TD 05/09/16 21:00 05/20/16 20:06 (Robitussin Dm 200-20 Mg/10 ml Liq) 10 ml Q6H PRN PO 05/11/16 17:00 05/13/16 04:13 (Mucinex Er) 600 mg BID PO 05/11/16 21:30 05/21/16 09:47 (Tessalon) 200 mg TID PRN PO 05/11/16 21:30 05/14/16 20:39 (Tylenol) 650 mg Q6HR PRN PO 05/11/16 21:30 05/17/16 13:06 (Protonix) 40 mg DAILY PO 05/12/16 09:00 05/21/16 09:47 (Lovenox Inj) 40 mg Q24H SQ 05/12/16 06:00 05/21/16 05:46 (Tylenol) 650 mg Q6H PRN PO 05/13/16 11:15 (Percocet 5-325 Mg) 1 tab Q6H PRN PO 05/13/16 11:15 (Percocet 10-325 Mg) 1 tab Q6H PRN PO 05/13/16 11:15 05/21/16 09:55 (Morphine Inj) 4 mg Q3H PRN IV 05/13/16 11:15 05/21/16 13:18 (Narcan Inj) 0.4 mg UNSCH PRN IV 05/13/16 11:15 (Levaquin) 750 mg DAILY PO 05/19/16 09:00 05/21/16 09:47 A/P Assessment and Plan 1. Laryngeal Mass Invasive Squamous Cell Carcinoma, cleaning specialist following, ENT, General performance specialist Status post Biopsy of the mass, Status post Tracheostomy, continue Chemotherapy. as per creative services specialist to remove tracheostomy tube when possible. to start Radiation therapy today. PEG tube placed on 05/06/16, Dietary consult requested. On Regular diet as per Surgery, Speech therapy following. 2. COPD continue Bronchodilator, Mucolytic and Incentive spirometry. Stable. 3. Tobacco dependence Strongly recommended to stop smoking 4. Pneumonia HCAP bilateral bases infiltrates. on Vancomycin and Cefepime Pseudomonas Aeruginosa fluorescens. Discontinued Vancomycin. discontinued Cefepime and switch to Levaquin. patient improving clinically if continue afebrile to remove antibiotics today. DVT prophylaxis with Lovenox. Discharge Planning Awaiting final by creative services specialist and Oncology for discharge it help desk manager for discharge. Jarred Funes MD May 21, 2016 17:52
--- NOTE | 2016-05-21 18:22 | HHI.PR ---
Subjective Remarks ALERT NO SOB TRACH OK started therapy Objective Vital Signs Date Time Temp Pulse Resp B/P Pulse Ox O2 Delivery O2 Flow Rate FiO2 05/21/16 15:44 97.9 83 16 110/74 96 05/21/16 12:00 97.7 78 16 118/71 95 05/21/16 08:00 97.4 66 16 110/73 96 05/21/16 07:50 94 21 05/21/16 04:53 18 05/21/16 04:00 97.5 76 18 105/68 95 05/21/16 00:00 97.8 86 18 107/61 94 05/20/16 20:00 98.5 99 18 121/70 93 05/20/16 19:52 92 Trach Collar 28 I/O 05/20/16 05/20/16 05/20/16 05/21/16 05/21/16 05/21/16 07:00 15:00 23:00 07:00 15:00 23:00 Intake Total 960 ml 480 ml Output Total 1000 ml 250 ml Balance -40 ml -250 ml 480 ml Intake Oral 960 ml 480 ml Output Urine Total 1000 ml 250 ml # Voids 1 3 # Bowel Movements 0 0 Result Diagram: 05/20/16 1459 05/20/16 1459 Procedures 05/05/16 Laryngeal mass biopsy 05/05/16 tracheostomy Objective Remarks GENERAL: SKIN: Warm and dry. HEAD: Atraumatic. Normocephalic. EYES: Pupils equal and round. No scleral icterus. No injection or drainage. ENT: No nasal bleeding or discharge. Mucous membranes pink and moist. NECK: Trachea midline. No JVD. TRACH IN PLACE CARDIOVASCULAR: Regular rate and rhythm. RESPIRATORY: No accessory muscle use. Clear to auscultation. Breath sounds equal bilaterally. GASTROINTESTINAL: Abdomen soft, non-tender, nondistended. Hepatic and splenic margins not palpable. MUSCULOSKELETAL: Extremities without clubbing, cyanosis, or edema. No obvious deformities. NEUROLOGICAL: Awake and alert. No obvious cranial nerve deficits. Motor grossly within normal limits. Five out of 5 muscle strength in the arms and legs. Normal speech. PSYCHIATRIC: Appropriate mood and affect; insight and judgment normal. Assessment and Plan Assessment and Plan LARYNGEAL CA S/P TRACH PLAN PULM TOILET REMOVE TRACHEOSTOMY WHEN POSSIBLE Kamran Andrew MD May 21, 2016 18:22
[2016-05-21] MEDS: REMOVE OLD NICODERM (NICOTINE) PATCH TD SCH (21:00)
[2016-05-22] VITALS (8 sets, daily range): BP systolic 101–115; BP diastolic 65–72; PULSE 70–78; RESP 17–22; TEMP 97.1–97.6; O2SAT 93–97
[2016-05-22] MEDS: oxyCODONE/ACETAMINOPHEN 10 MG/325 MG TAB PO PRN ×2 (05:51→14:01)
[2016-05-22] MEDS: ENOXAPARIN SODIUM 40 MG/0.4 ML SYRINGE SQ SCH (05:51)
[2016-05-22] MEDS: LEVOFLOXACIN 750 MG TAB PO SCH (09:46)
[2016-05-22] MEDS: PANTOPRAZOLE SOD 40 MG DELAYED RELEASE TAB PO SCH (09:46)
[2016-05-22] MEDS: NICOTINE 7 MG/24 HR PATCH TD SCH (09:46)
[2016-05-22] MEDS: SODIUM CHLORIDE 0.9% FLUSH 5 ML FLUSH FLUSH SCH ×2 (09:46→19:38)
[2016-05-22] MEDS: DOCUSATE SODIUM 100 MG CAP PO SCH ×3 (09:46→18:34)
[2016-05-22] MEDS: guaiFENesin E.R. 600 MG TAB PO SCH ×2 (09:46→19:36)
[2016-05-22] MEDS: MORPHINE SULFATE 4 MG/ML INJ IV PRN ×2 (09:48→18:34)
--- NOTE | 2016-05-22 11:42 | HHI.PR ---
Subjective Remarks Seen in the room no nausea, vomit or diarrhea, discussed with nurse Miss Prescott as per principal technical specialist to remove Tracheostomy when possible. Stable in his bedroom no complaint. Objective Vital Signs Date Time Temp Pulse Resp B/P Pulse Ox O2 Delivery O2 Flow Rate FiO2 05/22/16 10:13 94 Trach Collar 5.00 28 05/22/16 08:00 97.6 72 22 101/69 95 05/22/16 04:00 97.3 73 17 115/70 97 05/22/16 00:00 97.3 77 18 101/65 96 05/21/16 20:00 97.2 87 18 115/73 98 05/21/16 19:22 97 T-piece 21 05/21/16 15:44 97.9 83 16 110/74 96 05/21/16 12:00 97.7 78 16 118/71 95 I/O 05/21/16 05/21/16 05/21/16 05/22/16 05/22/16 05/22/16 07:00 15:00 23:00 07:00 15:00 23:00 Intake Total 480 ml 480 ml Balance 480 ml 480 ml Intake Oral 480 ml 480 ml # Voids 1 3 2 # Bowel Movements 0 Result Diagram: 05/20/16 1459 05/20/16 1459 Imaging Last Impressions Chest X-Ray 05/10/16 0000 Signed Impressions: Service Date/Time: Tuesday, May 10, 2016 11:23 - CONCLUSION: Atelectasis at the lung bases. No other acute cardiopulmonary disease identified. Suhail Calderon MD Gastrostomy Tube Placement 05/06/16 0000 Signed Impressions: Service Date/Time: Friday, May 06, 2016 13:15 - CONCLUSION: Uncomplicated gastrostomy tube placement as above. Fabian Blackwood Jr., MD Chest CT 05/03/16 0000 Signed Impressions: Service Date/Time: Tuesday, May 03, 2016 11:33 - CONCLUSION: 1. Emphysema and right upper lobe scarring. Scarring is mildly nodular but still most likely benign. Six-month followup noncontrast chest CT recommended. 2. No lymphadenopathy. 3. Coronary artery calcification. John Mcdonnell MD Abdomen/Pelvis CT 05/03/16 0000 Signed Impressions: Service Date/Time: Tuesday, May 03, 2016 11:33 - CONCLUSION: 1. No malignancy or other acute abnormality seen within the abdomen or pelvis. 2. Diverticulosis of the colon without acute inflammatory changes. 3. Atherosclerotic aorta. No aneurysm. John Mcdonnell MD Neck CT 05/01/16 0000 Signed Impressions: Service Date/Time: April 13:51 - CONCLUSION: 1. Large mass involving the larynx measuring 3.5 x 2.0 cm causing significant compromise to the airway. No adenopathy observed. Malignancy is felt most likely. 2. Severe emphysematous changes. 3. Areas of probable scarring involving the right lung apex. This is nodular in appearance in one area that is partially visualized. I suggest a CT of the thorax to further evaluate. Fabian Blackwood Jr., MD Procedures 05/05/16 Laryngeal mass biopsy 05/05/16 tracheostomy Other Results Laboratory Tests Test 05/20/16 14:59 White Blood Count 10.1 TH/MM3 Red Blood Count 4.13 MIL/MM3 Hemoglobin 12.6 GM/DL Hematocrit 37.8 % Mean Corpuscular Volume 91.6 FL Mean Corpuscular Hemoglobin 30.6 PG Mean Corpuscular Hemoglobin 33.4 % Concent Red Cell Distribution Width 13.4 % Platelet Count 435 TH/MM3 Mean Platelet Volume 6.7 FL Neutrophils (%) (Auto) 86.7 % Lymphocytes (%) (Auto) 6.7 % Monocytes (%) (Auto) 2.5 % Eosinophils (%) (Auto) 3.4 % Basophils (%) (Auto) 0.7 % Neutrophils # (Auto) 8.8 TH/MM3 Lymphocytes # (Auto) 0.7 TH/MM3 Monocytes # (Auto) 0.3 TH/MM3 Eosinophils # (Auto) 0.3 TH/MM3 Basophils # (Auto) 0.1 TH/MM3 CBC Comment DIFF FINAL Differential Comment Sodium Level 139 MEQ/L Potassium Level 4.0 MEQ/L Chloride Level 100 MEQ/L Carbon Dioxide Level 30.3 MEQ/L Anion Gap 9 MEQ/L Blood Urea Nitrogen 22 MG/DL Creatinine 0.78 MG/DL Estimat Glomerular Filtration 102 ML/MIN Rate Random Glucose 139 MG/DL Calcium Level 9.1 MG/DL Total Bilirubin 0.2 MG/DL Aspartate Amino Transf 20 U/L (AST/SGOT) Alanine Aminotransferase 38 U/L (ALT/SGPT) Alkaline Phosphatase 84 U/L Total Protein 7.3 GM/DL Albumin 2.9 GM/DL Objective Remarks General: No acute distress. Trach. Heart: Regular rate and rhythm. No murmur. Lungs: Clear to auscultation bilaterally. No wheezes, rales, or rhonchi. Breathing is nonlabored. Abdomen: Soft, nontender, nondistended. PEG tube in place - C/D/I Extremities: No lower extremity edema. No calf tenderness. Psych: Alert and oriented. Nonverbal. Medications and IVs Current Medications Medications (Trade) Dose Ordered Sig/Darryl Route Start Time Stop Time Status Last Admin (NS Flush) 2 ml UNSCH PRN FLUSH 05/01/16 15:15 05/21/16 13:19 (NS Flush) 2 ml BID FLUSH 05/01/16 21:00 05/23/16 08:20 (Zofran Inj) 4 mg Q6H PRN IVP 05/01/16 15:15 05/07/16 18:03 (Reglan Inj) 5 mg Q8H PRN IV PUSH 05/07/16 22:15 05/07/16 22:12 (Colace) 100 mg TID PO 05/08/16 09:00 05/23/16 12:06 (Habitrol 7 Mg Patch.24 Hr) 1 patch DAILY TD 05/09/16 16:00 05/23/16 08:18 Miscellaneous Information 1 HS TD 05/09/16 21:00 05/22/16 19:36 (Robitussin Dm 200-20 Mg/10 ml Liq) 10 ml Q6H PRN PO 05/11/16 17:00 05/13/16 04:13 (Mucinex Er) 600 mg BID PO 05/11/16 21:30 05/23/16 08:18 (Tessalon) 200 mg TID PRN PO 05/11/16 21:30 05/14/16 20:39 (Tylenol) 650 mg Q6HR PRN PO 05/11/16 21:30 05/17/16 13:06 (Protonix) 40 mg DAILY PO 05/12/16 09:00 05/23/16 08:18 (Lovenox Inj) 40 mg Q24H SQ 05/12/16 06:00 05/23/16 06:13 (Tylenol) 650 mg Q6H PRN PO 05/13/16 11:15 (Percocet 5-325 Mg) 1 tab Q6H PRN PO 05/13/16 11:15 (Percocet 10-325 Mg) 1 tab Q6H PRN PO 05/13/16 11:15 05/23/16 06:13 (Morphine Inj) 4 mg Q3H PRN IV 05/13/16 11:15 05/22/16 18:34 (Narcan Inj) 0.4 mg UNSCH PRN IV 05/13/16 11:15 (Levaquin) 750 mg DAILY PO 05/19/16 09:00 05/23/16 08:18 A/P Assessment and Plan 1. Laryngeal Mass Invasive Squamous Cell Carcinoma, refrigeration specialist following, ENT, General delivery specialist Status post Biopsy of the mass, Status post Tracheostomy, continue Chemotherapy. as per principal technical specialist to remove tracheostomy tube PEG tube placed on 05/06/16, Dietary consult requested. On Regular diet as per Surgery, Speech therapy following. 2. COPD continue Bronchodilator, Mucolytic and Incentive spirometry. Stable. 3. Tobacco dependence Strongly recommended to stop smoking 4. Pneumonia HCAP bilateral bases infiltrates. on Vancomycin and Cefepime Pseudomonas Aeruginosa fluorescens. Discontinued Vancomycin. discontinued Cefepime and switch to Levaquin. patient improving clinically if continue afebrile to remove antibiotics today. DVT prophylaxis with Lovenox. No changes to anterior assessment Discussed with patient and nurse Miss Han continue chemotherapy and Radiation therapy. Discharge Planning Awaiting final by principal technical specialist and Oncology for discharge district loss prevention manager for discharge. Jarred Funes MD May 22, 2016 11:42
--- NOTE | 2016-05-22 16:54 | HHI.PR ---
Subjective Remarks ALERT NO SOB TRACH OK started therapy Objective Vital Signs Date Time Temp Pulse Resp B/P Pulse Ox O2 Delivery O2 Flow Rate FiO2 05/22/16 12:00 97.5 76 18 115/72 94 05/22/16 10:13 94 Trach Collar 5.00 28 05/22/16 08:00 97.6 72 22 101/69 95 05/22/16 04:00 97.3 73 17 115/70 97 05/22/16 00:00 97.3 77 18 101/65 96 05/21/16 20:00 97.2 87 18 115/73 98 05/21/16 19:22 97 T-piece 21 I/O 05/21/16 05/21/16 05/21/16 05/22/16 05/22/16 05/22/16 07:00 15:00 23:00 07:00 15:00 23:00 Intake Total 480 ml 480 ml 1320 ml Output Total 600 ml Balance 480 ml 480 ml 720 ml Intake Oral 480 ml 480 ml 1320 ml Output Urine Total 600 ml # Voids 1 3 2 2 # Bowel Movements 0 Result Diagram: 05/20/16 1459 05/20/16 1459 Procedures 05/05/16 Laryngeal mass biopsy 05/05/16 tracheostomy Objective Remarks GENERAL: SKIN: Warm and dry. HEAD: Atraumatic. Normocephalic. EYES: Pupils equal and round. No scleral icterus. No injection or drainage. ENT: No nasal bleeding or discharge. Mucous membranes pink and moist. NECK: Trachea midline. No JVD. TRACH IN PLACE CARDIOVASCULAR: Regular rate and rhythm. RESPIRATORY: No accessory muscle use. Clear to auscultation. Breath sounds equal bilaterally. GASTROINTESTINAL: Abdomen soft, non-tender, nondistended. Hepatic and splenic margins not palpable. MUSCULOSKELETAL: Extremities without clubbing, cyanosis, or edema. No obvious deformities. NEUROLOGICAL: Awake and alert. No obvious cranial nerve deficits. Motor grossly within normal limits. Five out of 5 muscle strength in the arms and legs. Normal speech. PSYCHIATRIC: Appropriate mood and affect; insight and judgment normal. Assessment and Plan Assessment and Plan LARYNGEAL CA S/P TRACH PLAN PULM TOILET REMOVE TRACHEOSTOMY WHEN POSSIBLE Kamran Andrew MD May 22, 2016 16:54
[2016-05-22] MEDS: REMOVE OLD NICODERM (NICOTINE) PATCH TD SCH (19:36)
[2016-05-23] VITALS (9 sets, daily range): BP systolic 102–117; BP diastolic 67–79; PULSE 76–79; RESP 17–18; TEMP 96.3–98; O2SAT 90–98
[2016-05-23] MEDS: ENOXAPARIN SODIUM 40 MG/0.4 ML SYRINGE SQ SCH (06:13)
[2016-05-23] MEDS: oxyCODONE/ACETAMINOPHEN 10 MG/325 MG TAB PO PRN ×3 (06:13→20:41)
[2016-05-23] MEDS: PANTOPRAZOLE SOD 40 MG DELAYED RELEASE TAB PO SCH (08:18)
[2016-05-23] MEDS: LEVOFLOXACIN 750 MG TAB PO SCH (08:18)
[2016-05-23] MEDS: DOCUSATE SODIUM 100 MG CAP PO SCH ×3 (08:18→16:36)
[2016-05-23] MEDS: NICOTINE 7 MG/24 HR PATCH TD SCH (08:18)
[2016-05-23] MEDS: guaiFENesin E.R. 600 MG TAB PO SCH ×2 (08:18→20:37)
[2016-05-23] MEDS: SODIUM CHLORIDE 0.9% FLUSH 5 ML FLUSH FLUSH SCH ×2 (08:20→20:37)
--- NOTE | 2016-05-23 12:58 | HHI.PR ---
Subjective Remarks Seen in the room no nausea, vomit or diarrhea, discussed with nurse Miss Prescott as per logistic specialist to remove Tracheostomy when possible. Stable in his bedroom discussed with nurse Miss Mcphersonise no nausea, vomit or diarrhea. Objective Vital Signs Date Time Temp Pulse Resp B/P Pulse Ox O2 Delivery O2 Flow Rate FiO2 05/23/16 08:00 97.4 76 18 111/75 93 05/23/16 07:58 98 21 05/23/16 04:00 97.6 76 17 112/69 97 05/23/16 00:24 90 05/23/16 00:00 97.5 77 17 111/71 94 05/22/16 20:00 97.2 78 17 115/71 94 05/22/16 19:42 18 05/22/16 17:37 94 T-piece 6.00 28 05/22/16 16:00 97.1 70 22 101/69 93 I/O 05/22/16 05/22/16 05/22/16 05/23/16 05/23/16 05/23/16 07:00 15:00 23:00 07:00 15:00 23:00 Intake Total 1320 ml 240 ml 240 ml 360 ml Output Total 600 ml Balance 720 ml 240 ml 240 ml 360 ml Intake Oral 1320 ml 240 ml 240 ml 360 ml Output Urine Total 600 ml # Voids 2 2 2 Result Diagram: 05/20/16 1459 05/20/16 1459 Imaging Last Impressions Chest X-Ray 05/10/16 0000 Signed Impressions: Service Date/Time: Tuesday, May 10, 2016 11:23 - CONCLUSION: Atelectasis at the lung bases. No other acute cardiopulmonary disease identified. Suhail Calderon MD Gastrostomy Tube Placement 05/06/16 0000 Signed Impressions: Service Date/Time: Friday, May 06, 2016 13:15 - CONCLUSION: Uncomplicated gastrostomy tube placement as above. Fabian Blackwood Jr., MD Chest CT 05/03/16 0000 Signed Impressions: Service Date/Time: Tuesday, May 03, 2016 11:33 - CONCLUSION: 1. Emphysema and right upper lobe scarring. Scarring is mildly nodular but still most likely benign. Six-month followup noncontrast chest CT recommended. 2. No lymphadenopathy. 3. Coronary artery calcification. John Mcdonnell MD Abdomen/Pelvis CT 05/03/16 0000 Signed Impressions: Service Date/Time: Tuesday, May 03, 2016 11:33 - CONCLUSION: 1. No malignancy or other acute abnormality seen within the abdomen or pelvis. 2. Diverticulosis of the colon without acute inflammatory changes. 3. Atherosclerotic aorta. No aneurysm. John Mcdonnell MD Neck CT 05/01/16 0000 Signed Impressions: Service Date/Time: April 13:51 - CONCLUSION: 1. Large mass involving the larynx measuring 3.5 x 2.0 cm causing significant compromise to the airway. No adenopathy observed. Malignancy is felt most likely. 2. Severe emphysematous changes. 3. Areas of probable scarring involving the right lung apex. This is nodular in appearance in one area that is partially visualized. I suggest a CT of the thorax to further evaluate. Fabian Blackwood Jr., MD Procedures 05/05/16 Laryngeal mass biopsy 05/05/16 tracheostomy Other Results Laboratory Tests Test 05/20/16 14:59 White Blood Count 10.1 TH/MM3 Red Blood Count 4.13 MIL/MM3 Hemoglobin 12.6 GM/DL Hematocrit 37.8 % Mean Corpuscular Volume 91.6 FL Mean Corpuscular Hemoglobin 30.6 PG Mean Corpuscular Hemoglobin 33.4 % Concent Red Cell Distribution Width 13.4 % Platelet Count 435 TH/MM3 Mean Platelet Volume 6.7 FL Neutrophils (%) (Auto) 86.7 % Lymphocytes (%) (Auto) 6.7 % Monocytes (%) (Auto) 2.5 % Eosinophils (%) (Auto) 3.4 % Basophils (%) (Auto) 0.7 % Neutrophils # (Auto) 8.8 TH/MM3 Lymphocytes # (Auto) 0.7 TH/MM3 Monocytes # (Auto) 0.3 TH/MM3 Eosinophils # (Auto) 0.3 TH/MM3 Basophils # (Auto) 0.1 TH/MM3 CBC Comment DIFF FINAL Differential Comment Sodium Level 139 MEQ/L Potassium Level 4.0 MEQ/L Chloride Level 100 MEQ/L Carbon Dioxide Level 30.3 MEQ/L Anion Gap 9 MEQ/L Blood Urea Nitrogen 22 MG/DL Creatinine 0.78 MG/DL Estimat Glomerular Filtration 102 ML/MIN Rate Random Glucose 139 MG/DL Calcium Level 9.1 MG/DL Total Bilirubin 0.2 MG/DL Aspartate Amino Transf 20 U/L (AST/SGOT) Alanine Aminotransferase 38 U/L (ALT/SGPT) Alkaline Phosphatase 84 U/L Total Protein 7.3 GM/DL Albumin 2.9 GM/DL Objective Remarks General: No acute distress. Trach. Heart: Regular rate and rhythm. No murmur. Lungs: Clear to auscultation bilaterally. No wheezes, rales, or rhonchi. Breathing is nonlabored. Abdomen: Soft, nontender, nondistended. PEG tube in place - C/D/I Extremities: No lower extremity edema. No calf tenderness. Psych: Alert and oriented. Nonverbal. Medications and IVs Current Medications Medications (Trade) Dose Ordered Sig/Darryl Route Start Time Stop Time Status Last Admin (NS Flush) 2 ml UNSCH PRN FLUSH 05/01/16 15:15 05/21/16 13:19 (NS Flush) 2 ml BID FLUSH 05/01/16 21:00 05/23/16 08:20 (Zofran Inj) 4 mg Q6H PRN IVP 05/01/16 15:15 05/07/16 18:03 (Reglan Inj) 5 mg Q8H PRN IV PUSH 05/07/16 22:15 05/07/16 22:12 (Colace) 100 mg TID PO 05/08/16 09:00 05/23/16 12:06 (Habitrol 7 Mg Patch.24 Hr) 1 patch DAILY TD 05/09/16 16:00 05/23/16 08:18 Miscellaneous Information 1 HS TD 05/09/16 21:00 05/22/16 19:36 (Robitussin Dm 200-20 Mg/10 ml Liq) 10 ml Q6H PRN PO 05/11/16 17:00 05/13/16 04:13 (Mucinex Er) 600 mg BID PO 05/11/16 21:30 05/23/16 08:18 (Tessalon) 200 mg TID PRN PO 05/11/16 21:30 05/14/16 20:39 (Tylenol) 650 mg Q6HR PRN PO 05/11/16 21:30 05/17/16 13:06 (Protonix) 40 mg DAILY PO 05/12/16 09:00 05/23/16 08:18 (Lovenox Inj) 40 mg Q24H SQ 05/12/16 06:00 05/23/16 06:13 (Tylenol) 650 mg Q6H PRN PO 05/13/16 11:15 (Percocet 5-325 Mg) 1 tab Q6H PRN PO 05/13/16 11:15 (Percocet 10-325 Mg) 1 tab Q6H PRN PO 05/13/16 11:15 05/23/16 06:13 (Morphine Inj) 4 mg Q3H PRN IV 05/13/16 11:15 05/22/16 18:34 (Narcan Inj) 0.4 mg UNSCH PRN IV 05/13/16 11:15 (Levaquin) 750 mg DAILY PO 05/19/16 09:00 05/23/16 08:18 A/P Assessment and Plan 1. Laryngeal Mass Invasive Squamous Cell Carcinoma, application security specialist following, ENT, General client renewal specialist Status post Biopsy of the mass, Status post Tracheostomy, continue Chemotherapy. as per logistic specialist to remove tracheostomy tube PEG tube placed on 05/06/16, Dietary consult requested. On Regular diet as per Surgery, Speech therapy following. 2. COPD continue Bronchodilator, Mucolytic and Incentive spirometry. Stable. 3. Tobacco dependence Strongly recommended to stop smoking 4. Pneumonia HCAP bilateral bases infiltrates. on Vancomycin and Cefepime Pseudomonas Aeruginosa fluorescens. Discontinued Vancomycin. discontinued Cefepime and switch to Levaquin. patient improving clinically continue afebrile removed Levaquin DVT prophylaxis with Lovenox. No changes to anterior assessment Discussed with patient and nurse Miss Tata chemotherapy and Radiation therapy. Discharge Planning Awaiting final by logistic specialist and Oncology for discharge cattle manager for discharge. Jarred Funes MD May 23, 2016 12:58 Jarred Funes MD May 23, 2016 12:58
[2016-05-23] MEDS: ONDANSETRON HCL 4 MG/2 ML VIAL IVP PRN (13:25)
--- NOTE | 2016-05-23 16:29 | HHI.PR ---
Subjective Remarks ALERT NO SOB TRACH OK started therapy Objective Vital Signs Date Time Temp Pulse Resp B/P Pulse Ox O2 Delivery O2 Flow Rate FiO2 05/23/16 12:00 96.3 78 18 102/71 95 05/23/16 08:00 97.4 76 18 111/75 93 05/23/16 07:58 98 21 05/23/16 04:00 97.6 76 17 112/69 97 05/23/16 00:24 90 05/23/16 00:00 97.5 77 17 111/71 94 05/22/16 20:00 97.2 78 17 115/71 94 05/22/16 19:42 18 05/22/16 17:37 94 T-piece 6.00 28 I/O 05/22/16 05/22/16 05/22/16 05/23/16 05/23/16 05/23/16 07:00 15:00 23:00 07:00 15:00 23:00 Intake Total 1320 ml 240 ml 240 ml 1320 ml Output Total 600 ml Balance 720 ml 240 ml 240 ml 1320 ml Intake Oral 1320 ml 240 ml 240 ml 1320 ml Output Urine Total 600 ml # Voids 2 2 2 2 Result Diagram: 05/20/16 1459 05/20/16 1459 Procedures 05/05/16 Laryngeal mass biopsy 05/05/16 tracheostomy Objective Remarks GENERAL: SKIN: Warm and dry. HEAD: Atraumatic. Normocephalic. EYES: Pupils equal and round. No scleral icterus. No injection or drainage. ENT: No nasal bleeding or discharge. Mucous membranes pink and moist. NECK: Trachea midline. No JVD. TRACH IN PLACE CARDIOVASCULAR: Regular rate and rhythm. RESPIRATORY: No accessory muscle use. Clear to auscultation. Breath sounds equal bilaterally. GASTROINTESTINAL: Abdomen soft, non-tender, nondistended. Hepatic and splenic margins not palpable. MUSCULOSKELETAL: Extremities without clubbing, cyanosis, or edema. No obvious deformities. NEUROLOGICAL: Awake and alert. No obvious cranial nerve deficits. Motor grossly within normal limits. Five out of 5 muscle strength in the arms and legs. Normal speech. PSYCHIATRIC: Appropriate mood and affect; insight and judgment normal. Assessment and Plan Assessment and Plan LARYNGEAL CA S/P TRACH PLAN PULM TOILET REMOVE TRACHEOSTOMY WHEN POSSIBLE Kamran Andrew MD May 23, 2016 16:29
[2016-05-23] MEDS: REMOVE OLD NICODERM (NICOTINE) PATCH TD SCH (20:37)
[2016-05-24] VITALS (7 sets, daily range): BP systolic 103–129; BP diastolic 65–78; PULSE 70–79; RESP 16; TEMP 97.2–98.1; O2SAT 93–98
[2016-05-24] MEDS: ENOXAPARIN SODIUM 40 MG/0.4 ML SYRINGE SQ SCH (06:23)
[2016-05-24] MEDS: oxyCODONE/ACETAMINOPHEN 10 MG/325 MG TAB PO PRN ×3 (06:27→20:25)
[2016-05-24] MEDS: SODIUM CHLORIDE 0.9% FLUSH 5 ML FLUSH FLUSH SCH ×2 (07:56→20:28)
[2016-05-24] MEDS: DOCUSATE SODIUM 100 MG CAP PO SCH ×3 (07:56→17:14)
[2016-05-24] MEDS: guaiFENesin E.R. 600 MG TAB PO SCH ×2 (07:56→20:25)
[2016-05-24] MEDS: PANTOPRAZOLE SOD 40 MG DELAYED RELEASE TAB PO SCH (07:56)
[2016-05-24] MEDS: NICOTINE 7 MG/24 HR PATCH TD SCH (07:57)
[2016-05-24] MEDS: LEVOFLOXACIN 750 MG TAB PO SCH (08:00)
--- NOTE | 2016-05-24 15:59 | HHI.PR ---
Subjective Remarks Seen in the room no nausea, vomit or diarrhea, discussed with nurse Miss Tolentinooe as per pst specialist to remove Tracheostomy when possible. No complaint by patient no nausea, vomit or diarrhea. Objective Vital Signs Date Time Temp Pulse Resp B/P Pulse Ox O2 Delivery O2 Flow Rate FiO2 05/24/16 12:37 97.3 73 16 105/70 95 05/24/16 12:30 94 21 05/24/16 08:29 97.5 72 16 112/78 93 05/24/16 04:00 97.5 70 16 107/69 98 05/24/16 00:00 97.2 73 16 103/66 93 05/23/16 21:40 16 05/23/16 20:00 97.4 79 17 117/79 96 05/23/16 19:20 97 21 05/23/16 16:00 98.0 77 18 103/67 95 I/O 05/23/16 05/23/16 05/23/16 05/24/16 05/24/16 05/24/16 07:00 15:00 23:00 07:00 15:00 23:00 Intake Total 240 ml 1320 ml 240 ml 120 ml Balance 240 ml 1320 ml 240 ml 120 ml Intake Oral 240 ml 1320 ml 240 ml 120 ml # Voids 2 2 1 1 # Bowel Movements 1 Result Diagram: 05/20/16 1459 05/20/16 1459 Imaging Last Impressions Chest X-Ray 05/10/16 0000 Signed Impressions: Service Date/Time: Tuesday, May 10, 2016 11:23 - CONCLUSION: Atelectasis at the lung bases. No other acute cardiopulmonary disease identified. Suhail Calderon MD Gastrostomy Tube Placement 05/06/16 0000 Signed Impressions: Service Date/Time: Friday, May 06, 2016 13:15 - CONCLUSION: Uncomplicated gastrostomy tube placement as above. Fabian Blackwood Jr., MD Chest CT 05/03/16 0000 Signed Impressions: Service Date/Time: Tuesday, May 03, 2016 11:33 - CONCLUSION: 1. Emphysema and right upper lobe scarring. Scarring is mildly nodular but still most likely benign. Six-month followup noncontrast chest CT recommended. 2. No lymphadenopathy. 3. Coronary artery calcification. John Mcdonnell MD Abdomen/Pelvis CT 05/03/16 0000 Signed Impressions: Service Date/Time: Tuesday, May 03, 2016 11:33 - CONCLUSION: 1. No malignancy or other acute abnormality seen within the abdomen or pelvis. 2. Diverticulosis of the colon without acute inflammatory changes. 3. Atherosclerotic aorta. No aneurysm. John Mcdonnell MD Neck CT 05/01/16 0000 Signed Impressions: Service Date/Time: April 13:51 - CONCLUSION: 1. Large mass involving the larynx measuring 3.5 x 2.0 cm causing significant compromise to the airway. No adenopathy observed. Malignancy is felt most likely. 2. Severe emphysematous changes. 3. Areas of probable scarring involving the right lung apex. This is nodular in appearance in one area that is partially visualized. I suggest a CT of the thorax to further evaluate. Fabian Blackwood Jr., MD Procedures 05/05/16 Laryngeal mass biopsy 05/05/16 tracheostomy Other Results Laboratory Tests Test 05/20/16 14:59 White Blood Count 10.1 TH/MM3 Red Blood Count 4.13 MIL/MM3 Hemoglobin 12.6 GM/DL Hematocrit 37.8 % Mean Corpuscular Volume 91.6 FL Mean Corpuscular Hemoglobin 30.6 PG Mean Corpuscular Hemoglobin 33.4 % Concent Red Cell Distribution Width 13.4 % Platelet Count 435 TH/MM3 Mean Platelet Volume 6.7 FL Neutrophils (%) (Auto) 86.7 % Lymphocytes (%) (Auto) 6.7 % Monocytes (%) (Auto) 2.5 % Eosinophils (%) (Auto) 3.4 % Basophils (%) (Auto) 0.7 % Neutrophils # (Auto) 8.8 TH/MM3 Lymphocytes # (Auto) 0.7 TH/MM3 Monocytes # (Auto) 0.3 TH/MM3 Eosinophils # (Auto) 0.3 TH/MM3 Basophils # (Auto) 0.1 TH/MM3 CBC Comment DIFF FINAL Differential Comment Sodium Level 139 MEQ/L Potassium Level 4.0 MEQ/L Chloride Level 100 MEQ/L Carbon Dioxide Level 30.3 MEQ/L Anion Gap 9 MEQ/L Blood Urea Nitrogen 22 MG/DL Creatinine 0.78 MG/DL Estimat Glomerular Filtration 102 ML/MIN Rate Random Glucose 139 MG/DL Calcium Level 9.1 MG/DL Total Bilirubin 0.2 MG/DL Aspartate Amino Transf 20 U/L (AST/SGOT) Alanine Aminotransferase 38 U/L (ALT/SGPT) Alkaline Phosphatase 84 U/L Total Protein 7.3 GM/DL Albumin 2.9 GM/DL Objective Remarks General: No acute distress. Trach. Heart: Regular rate and rhythm. No murmur. Lungs: Clear to auscultation bilaterally. No wheezes, rales, or rhonchi. Breathing is nonlabored. Abdomen: Soft, nontender, nondistended. PEG tube in place - C/D/I Extremities: No lower extremity edema. No calf tenderness. Psych: Alert and oriented. Nonverbal. Medications and IVs Current Medications Medications (Trade) Dose Ordered Sig/Darryl Route Start Time Stop Time Status Last Admin (NS Flush) 2 ml UNSCH PRN FLUSH 05/01/16 15:15 05/21/16 13:19 (NS Flush) 2 ml BID FLUSH 05/01/16 21:00 05/24/16 07:56 (Zofran Inj) 4 mg Q6H PRN IVP 05/01/16 15:15 05/23/16 13:25 (Reglan Inj) 5 mg Q8H PRN IV PUSH 05/07/16 22:15 05/07/16 22:12 (Colace) 100 mg TID PO 05/08/16 09:00 05/24/16 13:37 (Habitrol 7 Mg Patch.24 Hr) 1 patch DAILY TD 05/09/16 16:00 05/24/16 07:57 Miscellaneous Information 1 HS TD 05/09/16 21:00 05/23/16 20:37 (Robitussin Dm 200-20 Mg/10 ml Liq) 10 ml Q6H PRN PO 05/11/16 17:00 05/13/16 04:13 (Mucinex Er) 600 mg BID PO 05/11/16 21:30 05/24/16 07:56 (Tessalon) 200 mg TID PRN PO 05/11/16 21:30 05/14/16 20:39 (Tylenol) 650 mg Q6HR PRN PO 05/11/16 21:30 05/17/16 13:06 (Protonix) 40 mg DAILY PO 05/12/16 09:00 05/24/16 07:56 (Lovenox Inj) 40 mg Q24H SQ 05/12/16 06:00 05/24/16 06:23 (Tylenol) 650 mg Q6H PRN PO 05/13/16 11:15 (Percocet 5-325 Mg) 1 tab Q6H PRN PO 05/13/16 11:15 (Percocet 10-325 Mg) 1 tab Q6H PRN PO 05/13/16 11:15 05/24/16 13:39 (Morphine Inj) 4 mg Q3H PRN IV 05/13/16 11:15 05/22/16 18:34 (Narcan Inj) 0.4 mg UNSCH PRN IV 05/13/16 11:15 (Levaquin) 750 mg DAILY PO 05/19/16 09:00 05/24/16 08:00 A/P Assessment and Plan 1. Laryngeal Mass Invasive Squamous Cell Carcinoma, performance specialist following, ENT, General clinical rehab specialist Status post Biopsy of the mass, Status post Tracheostomy, continue Chemotherapy. as per pst specialist to remove tracheostomy tube PEG tube placed on 05/06/16, Dietary consult requested. On Regular diet as per Surgery, Speech therapy following. 2. COPD continue Bronchodilator, Mucolytic and Incentive spirometry. Stable. 3. Tobacco dependence Strongly recommended to stop smoking 4. Pneumonia HCAP bilateral bases infiltrates. on Vancomycin and Cefepime Pseudomonas Aeruginosa fluorescens. Discontinued Vancomycin. discontinued Cefepime and switch to Levaquin. patient improving clinically continue afebrile removed Levaquin DVT prophylaxis with Lovenox. No changes to anterior assessment Discussed with patient and nurse Tata no complaint no new issues, continue present care. Discharge Planning Awaiting final by pst specialist and Oncology for discharge analytic manager for discharge. Jarred Funes MD May 24, 2016 15:59 Jarred Funes MD May 24, 2016 15:59
[2016-05-24] MEDS: REMOVE OLD NICODERM (NICOTINE) PATCH TD SCH (20:29)
[2016-05-25] VITALS (7 sets, daily range): BP systolic 101–114; BP diastolic 63–74; PULSE 72–80; RESP 16–22; TEMP 97.1–98.7; O2SAT 93–98
[2016-05-25] MEDS: oxyCODONE/ACETAMINOPHEN 10 MG/325 MG TAB PO PRN ×2 (04:51→13:01)
[2016-05-25] MEDS: ENOXAPARIN SODIUM 40 MG/0.4 ML SYRINGE SQ SCH (05:20)
[2016-05-25] MEDS: MORPHINE SULFATE 4 MG/ML INJ IV PRN (05:23)
[2016-05-25] MEDS: guaiFENesin E.R. 600 MG TAB PO SCH ×2 (07:21→21:17)
[2016-05-25] MEDS: DOCUSATE SODIUM 100 MG CAP PO SCH ×3 (07:21→17:15)
[2016-05-25] MEDS: PANTOPRAZOLE SOD 40 MG DELAYED RELEASE TAB PO SCH (07:21)
[2016-05-25] MEDS: NICOTINE 7 MG/24 HR PATCH TD SCH (07:21)
[2016-05-25] MEDS: SODIUM CHLORIDE 0.9% FLUSH 5 ML FLUSH FLUSH SCH ×2 (07:21→21:00)
--- NOTE | 2016-05-25 08:40 | HHI.PR ---
Subjective Remarks Seen in the room no nausea, vomit or diarrhea, discussed with nurse Miss Tolentinooe as per evidence specialist to remove Tracheostomy when possible. Patient has no nausea, vomit or diarrhea but asking for pain medicine, given Extended Release Morphine. Objective Vital Signs Date Time Temp Pulse Resp B/P Pulse Ox O2 Delivery O2 Flow Rate FiO2 05/25/16 04:23 97.3 77 22 103/63 94 05/25/16 00:01 98.7 80 20 107/65 98 05/24/16 20:36 98.1 79 16 129/73 95 05/24/16 16:00 97.6 78 16 113/65 95 05/24/16 12:37 97.3 73 16 105/70 95 05/24/16 12:30 94 21 I/O 05/24/16 05/24/16 05/24/16 05/25/16 05/25/16 05/25/16 07:00 15:00 23:00 07:00 15:00 23:00 Intake Total 120 ml 960 ml 420 ml 240 ml Balance 120 ml 960 ml 420 ml 240 ml Intake Oral 120 ml 960 ml 420 ml 240 ml # Voids 1 3 3 4 # Bowel Movements 1 Imaging Last Impressions Chest X-Ray 05/10/16 0000 Signed Impressions: Service Date/Time: Tuesday, May 10, 2016 11:23 - CONCLUSION: Atelectasis at the lung bases. No other acute cardiopulmonary disease identified. Suhail Calderon MD Gastrostomy Tube Placement 05/06/16 0000 Signed Impressions: Service Date/Time: Friday, May 06, 2016 13:15 - CONCLUSION: Uncomplicated gastrostomy tube placement as above. Fabian Blackwood Jr., MD Chest CT 05/03/16 0000 Signed Impressions: Service Date/Time: Tuesday, May 03, 2016 11:33 - CONCLUSION: 1. Emphysema and right upper lobe scarring. Scarring is mildly nodular but still most likely benign. Six-month followup noncontrast chest CT recommended. 2. No lymphadenopathy. 3. Coronary artery calcification. John Mcdonnell MD Abdomen/Pelvis CT 05/03/16 0000 Signed Impressions: Service Date/Time: Tuesday, May 03, 2016 11:33 - CONCLUSION: 1. No malignancy or other acute abnormality seen within the abdomen or pelvis. 2. Diverticulosis of the colon without acute inflammatory changes. 3. Atherosclerotic aorta. No aneurysm. John Mcdonnell MD Neck CT 05/01/16 0000 Signed Impressions: Service Date/Time: April 13:51 - CONCLUSION: 1. Large mass involving the larynx measuring 3.5 x 2.0 cm causing significant compromise to the airway. No adenopathy observed. Malignancy is felt most likely. 2. Severe emphysematous changes. 3. Areas of probable scarring involving the right lung apex. This is nodular in appearance in one area that is partially visualized. I suggest a CT of the thorax to further evaluate. Fabian Blackwood Jr., MD Procedures 05/05/16 Laryngeal mass biopsy 05/05/16 tracheostomy Objective Remarks General: No acute distress. Trach. Heart: Regular rate and rhythm. No murmur. Lungs: Clear to auscultation bilaterally. No wheezes, rales, or rhonchi. Breathing is nonlabored. Abdomen: Soft, nontender, nondistended. PEG tube in place - C/D/I Extremities: No lower extremity edema. No calf tenderness. Psych: Alert and oriented. Nonverbal. Medications and IVs Current Medications Medications (Trade) Dose Ordered Sig/Darryl Route Start Time Stop Time Status Last Admin (NS Flush) 2 ml UNSCH PRN FLUSH 05/01/16 15:15 05/21/16 13:19 (NS Flush) 2 ml BID FLUSH 05/01/16 21:00 05/25/16 07:21 (Zofran Inj) 4 mg Q6H PRN IVP 05/01/16 15:15 05/23/16 13:25 (Reglan Inj) 5 mg Q8H PRN IV PUSH 05/07/16 22:15 05/07/16 22:12 (Colace) 100 mg TID PO 05/08/16 09:00 05/25/16 07:21 (Habitrol 7 Mg Patch.24 Hr) 1 patch DAILY TD 05/09/16 16:00 05/25/16 07:21 Miscellaneous Information 1 HS TD 05/09/16 21:00 05/24/16 20:29 (Robitussin Dm 200-20 Mg/10 ml Liq) 10 ml Q6H PRN PO 05/11/16 17:00 05/13/16 04:13 (Mucinex Er) 600 mg BID PO 05/11/16 21:30 05/25/16 07:21 (Tessalon) 200 mg TID PRN PO 05/11/16 21:30 05/14/16 20:39 (Tylenol) 650 mg Q6HR PRN PO 05/11/16 21:30 05/17/16 13:06 (Protonix) 40 mg DAILY PO 05/12/16 09:00 05/25/16 07:21 (Lovenox Inj) 40 mg Q24H SQ 05/12/16 06:00 05/25/16 05:20 (Tylenol) 650 mg Q6H PRN PO 05/13/16 11:15 (Percocet 5-325 Mg) 1 tab Q6H PRN PO 05/13/16 11:15 (Percocet 10-325 Mg) 1 tab Q6H PRN PO 05/13/16 11:15 05/25/16 04:51 (Morphine Inj) 4 mg Q3H PRN IV 05/13/16 11:15 05/25/16 05:23 (Narcan Inj) 0.4 mg UNSCH PRN IV 05/13/16 11:15 A/P Assessment and Plan 1. Laryngeal Mass Invasive Squamous Cell Carcinoma, workers compensation claims specialist following, ENT, General spine specialist Status post Biopsy of the mass, Status post Tracheostomy, continue Chemotherapy. as per evidence specialist to remove tracheostomy tube PEG tube placed on 05/06/16, Dietary consult requested. On Regular diet as per Surgery, Speech therapy following. He is asking for Pain Medicine. 2. COPD continue Bronchodilator, Mucolytic and Incentive spirometry. Stable. 3. Tobacco dependence Strongly recommended to stop smoking 4. Pneumonia HCAP bilateral bases infiltrates. on Vancomycin and Cefepime Pseudomonas Aeruginosa fluorescens. Discontinued Vancomycin. discontinued Cefepime and switch to Levaquin. patient improving clinically continue afebrile removed Levaquin DVT prophylaxis with Lovenox. No changes to anterior assessment Discussed with patient and nurse Miss Tata chemotherapy and Radiation therapy. Discharge Planning Awaiting final by evidence specialist and Oncology for discharge store group manager for discharge. Jarred Funes MD May 25, 2016 08:40
[2016-05-25] MEDS: REMOVE OLD NICODERM (NICOTINE) PATCH TD SCH (21:00)
[2016-05-25] MEDS: MORPHINE SULFATE 15 MG CONTROLLED RELEASE TAB PO SCH (21:18)
[2016-05-26] VITALS (8 sets, daily range): BP systolic 104–115; BP diastolic 64–69; PULSE 67–79; RESP 16–20; TEMP 96.1–98.3; O2SAT 95–96
[2016-05-26] MEDS: ENOXAPARIN SODIUM 40 MG/0.4 ML SYRINGE SQ SCH (05:49)
--- NOTE | 2016-05-26 08:22 | HHI.PR ---
Subjective Remarks Seen in the room no nausea, vomit or diarrhea, discussed with nurse Miss Prescott as per medical education specialist to remove Tracheostomy when possible. Stable discussed with nurse Andrade no Nausea, vomit or diarrhea. Objective Vital Signs Date Time Temp Pulse Resp B/P Pulse Ox O2 Delivery O2 Flow Rate FiO2 05/26/16 08:00 97.7 67 20 105/67 96 05/26/16 07:26 16 05/26/16 04:00 96.1 73 16 107/64 95 05/26/16 03:40 96 05/26/16 00:00 97.3 79 17 104/66 95 05/25/16 22:12 16 05/25/16 20:00 97.1 78 17 110/67 96 05/25/16 16:00 98.6 76 16 111/65 95 05/25/16 12:00 98.1 76 16 114/74 94 05/25/16 10:02 95 Trach Collar 28 I/O 05/25/16 05/25/16 05/25/16 05/26/16 05/26/16 05/26/16 07:00 15:00 23:00 07:00 15:00 23:00 Intake Total 240 ml 720 ml 480 ml 240 ml Balance 240 ml 720 ml 480 ml 240 ml Intake Oral 240 ml 720 ml 480 ml 240 ml # Voids 4 3 2 2 # Bowel Movements 2 Imaging Last Impressions Chest X-Ray 05/10/16 0000 Signed Impressions: Service Date/Time: Tuesday, May 10, 2016 11:23 - CONCLUSION: Atelectasis at the lung bases. No other acute cardiopulmonary disease identified. Suhail Calderon MD Gastrostomy Tube Placement 05/06/16 0000 Signed Impressions: Service Date/Time: Friday, May 06, 2016 13:15 - CONCLUSION: Uncomplicated gastrostomy tube placement as above. Fabian Blackwood Jr., MD Chest CT 05/03/16 0000 Signed Impressions: Service Date/Time: Tuesday, May 03, 2016 11:33 - CONCLUSION: 1. Emphysema and right upper lobe scarring. Scarring is mildly nodular but still most likely benign. Six-month followup noncontrast chest CT recommended. 2. No lymphadenopathy. 3. Coronary artery calcification. John Mcdonnell MD Abdomen/Pelvis CT 05/03/16 0000 Signed Impressions: Service Date/Time: Tuesday, May 03, 2016 11:33 - CONCLUSION: 1. No malignancy or other acute abnormality seen within the abdomen or pelvis. 2. Diverticulosis of the colon without acute inflammatory changes. 3. Atherosclerotic aorta. No aneurysm. John Mcdonnell MD Neck CT 05/01/16 0000 Signed Impressions: Service Date/Time: April 13:51 - CONCLUSION: 1. Large mass involving the larynx measuring 3.5 x 2.0 cm causing significant compromise to the airway. No adenopathy observed. Malignancy is felt most likely. 2. Severe emphysematous changes. 3. Areas of probable scarring involving the right lung apex. This is nodular in appearance in one area that is partially visualized. I suggest a CT of the thorax to further evaluate. Fabian Blackwood Jr., MD Procedures 05/05/16 Laryngeal mass biopsy 05/05/16 tracheostomy Other Results No new laboratory Objective Remarks General: No acute distress. Trach. Heart: Regular rate and rhythm. No murmur. Lungs: Clear to auscultation bilaterally. No wheezes, rales, or rhonchi. Breathing is nonlabored. Abdomen: Soft, nontender, nondistended. PEG tube in place - C/D/I Extremities: No lower extremity edema. No calf tenderness. Psych: Alert and oriented. Nonverbal. Medications and IVs Current Medications Medications (Trade) Dose Ordered Sig/Darryl Route Start Time Stop Time Status Last Admin (NS Flush) 2 ml UNSCH PRN FLUSH 05/01/16 15:15 05/21/16 13:19 (NS Flush) 2 ml BID FLUSH 05/01/16 21:00 05/25/16 21:00 (Zofran Inj) 4 mg Q6H PRN IVP 05/01/16 15:15 05/23/16 13:25 (Reglan Inj) 5 mg Q8H PRN IV PUSH 05/07/16 22:15 05/07/16 22:12 (Colace) 100 mg TID PO 05/08/16 09:00 05/25/16 17:15 (Habitrol 7 Mg Patch.24 Hr) 1 patch DAILY TD 05/09/16 16:00 05/25/16 07:21 Miscellaneous Information 1 HS TD 05/09/16 21:00 05/25/16 21:00 (Robitussin Dm 200-20 Mg/10 ml Liq) 10 ml Q6H PRN PO 05/11/16 17:00 05/13/16 04:13 (Mucinex Er) 600 mg BID PO 05/11/16 21:30 05/25/16 21:17 (Tessalon) 200 mg TID PRN PO 05/11/16 21:30 05/14/16 20:39 (Tylenol) 650 mg Q6HR PRN PO 05/11/16 21:30 05/17/16 13:06 (Protonix) 40 mg DAILY PO 05/12/16 09:00 05/25/16 07:21 (Lovenox Inj) 40 mg Q24H SQ 05/12/16 06:00 05/26/16 05:49 (Tylenol) 650 mg Q6H PRN PO 05/13/16 11:15 (Percocet 5-325 Mg) 1 tab Q6H PRN PO 05/13/16 11:15 05/26/16 05:47 (Percocet 10-325 Mg) 1 tab Q6H PRN PO 05/13/16 11:15 05/25/16 13:01 (Morphine Inj) 4 mg Q3H PRN IV 05/13/16 11:15 05/25/16 05:23 (Narcan Inj) 0.4 mg UNSCH PRN IV 05/13/16 11:15 (Oramorph Sr) 15 mg Q12HR PO 05/25/16 21:00 05/25/16 21:18 A/P Assessment and Plan 1. Laryngeal Mass Invasive Squamous Cell Carcinoma, treatment specialist following, ENT, General program specialist Status post Biopsy of the mass, Status post Tracheostomy, continue Chemotherapy. as per medical education specialist to remove tracheostomy tube PEG tube placed on 05/06/16, Dietary consult requested. On Regular diet as per Surgery, Speech therapy following. He is asking for Pain Medicine. 2. COPD continue Bronchodilator, Mucolytic and Incentive spirometry. Stable. 3. Tobacco dependence Strongly recommended to stop smoking 4. Pneumonia HCAP bilateral bases infiltrates. on Vancomycin and Cefepime Pseudomonas Aeruginosa fluorescens. Discontinued Vancomycin. discontinued Cefepime and switch to Levaquin. patient improving clinically continue afebrile removed Levaquin discussed with patient and nurse, as per Poultry Inseminator the patient will continue treatment In House. DVT prophylaxis with Lovenox. No changes to anterior assessment Discussed with patient and nurse Mr. Andrade. chemotherapy and Radiation therapy. Discharge Planning Awaiting final by medical education specialist and Oncology for discharge validation manager for discharge. Jarred Funes MD May 26, 2016 08:21
[2016-05-26] MEDS: guaiFENesin E.R. 600 MG TAB PO SCH ×2 (09:45→21:35)
[2016-05-26] MEDS: MORPHINE SULFATE 15 MG CONTROLLED RELEASE TAB PO SCH ×2 (09:46→21:35)
[2016-05-26] MEDS: NICOTINE 7 MG/24 HR PATCH TD SCH (09:47)
[2016-05-26] MEDS: DOCUSATE SODIUM 100 MG CAP PO SCH ×3 (09:47→18:27)
[2016-05-26] MEDS: PANTOPRAZOLE SOD 40 MG DELAYED RELEASE TAB PO SCH (09:47)
[2016-05-26] MEDS: SODIUM CHLORIDE 0.9% FLUSH 5 ML FLUSH FLUSH SCH ×2 (09:48→21:36)
--- NOTE | 2016-05-26 15:33 | HHI.PR ---
Subjective Remarks ALERT NO SOB TRACH OK started therapy Objective Vital Signs Date Time Temp Pulse Resp B/P Pulse Ox O2 Delivery O2 Flow Rate FiO2 05/26/16 12:00 97.7 72 20 112/69 96 05/26/16 08:00 97.7 67 20 105/67 96 05/26/16 07:26 16 05/26/16 04:00 96.1 73 16 107/64 95 05/26/16 03:40 96 05/26/16 00:00 97.3 79 17 104/66 95 05/25/16 22:12 16 05/25/16 20:00 97.1 78 17 110/67 96 05/25/16 16:00 98.6 76 16 111/65 95 I/O 05/25/16 05/25/16 05/25/16 05/26/16 05/26/16 05/26/16 07:00 15:00 23:00 07:00 15:00 23:00 Intake Total 240 ml 720 ml 480 ml 240 ml Balance 240 ml 720 ml 480 ml 240 ml Intake Oral 240 ml 720 ml 480 ml 240 ml # Voids 4 3 2 2 # Bowel Movements 2 Procedures 05/05/16 Laryngeal mass biopsy 05/05/16 tracheostomy Objective Remarks GENERAL: SKIN: Warm and dry. HEAD: Atraumatic. Normocephalic. EYES: Pupils equal and round. No scleral icterus. No injection or drainage. ENT: No nasal bleeding or discharge. Mucous membranes pink and moist. NECK: Trachea midline. No JVD. TRACH IN PLACE CARDIOVASCULAR: Regular rate and rhythm. RESPIRATORY: No accessory muscle use. Clear to auscultation. Breath sounds equal bilaterally. GASTROINTESTINAL: Abdomen soft, non-tender, nondistended. Hepatic and splenic margins not palpable. MUSCULOSKELETAL: Extremities without clubbing, cyanosis, or edema. No obvious deformities. NEUROLOGICAL: Awake and alert. No obvious cranial nerve deficits. Motor grossly within normal limits. Five out of 5 muscle strength in the arms and legs. Normal speech. PSYCHIATRIC: Appropriate mood and affect; insight and judgment normal. Assessment and Plan Assessment and Plan LARYNGEAL CA S/P TRACH PLAN PULM TOILET REMOVE TRACHEOSTOMY WHEN POSSIBLE Kamran Andrew MD May 26, 2016 15:33
[2016-05-26] MEDS: REMOVE OLD NICODERM (NICOTINE) PATCH TD SCH (21:00)
[2016-05-27] VITALS (7 sets, daily range): BP systolic 93–126; BP diastolic 52–84; PULSE 63–77; RESP 16–18; TEMP 96.2–97.1; O2SAT 94–97
[2016-05-27] MEDS: ENOXAPARIN SODIUM 40 MG/0.4 ML SYRINGE SQ SCH (04:22)
[2016-05-27] MEDS: oxyCODONE/ACETAMINOPHEN 10 MG/325 MG TAB PO PRN (04:22)
--- NOTE | 2016-05-27 07:55 | PD.ONC.PN ---
Subjective Subjective Remarks Patient denies acute complaints, he reports tolerating radiation (4 fractions thus far) without difficulty, he also tolerated the first dose of chemotherapy last week without complications were adverse effects. He tells me he feels his voice is clearing up and that the tumor feels like it is shrinking. He continues to be able to swallow well and continues also flushes PEG tube daily. Objective Data Date Time Temp Pulse Resp B/P Pulse Ox O2 Delivery O2 Flow Rate FiO2 05/27/16 06:07 18 05/27/16 04:23 70 18 108/62 96 05/27/16 00:00 97.1 74 16 111/66 96 05/26/16 23:51 16 05/26/16 22:20 95 05/26/16 20:00 98.3 78 16 115/67 96 05/26/16 15:52 98.2 72 20 105/69 95 05/26/16 12:00 97.7 72 20 112/69 96 05/26/16 08:00 97.7 67 20 105/67 96 Culture Results Microbiology Date/Time Procedure Status Source Growth 05/26/16 22:27 Gram Stain Received Sputum Expectorated Sputum Pending 05/26/16 22:27 Sputum Culture Received Sputum Expectorated Sputum Pending Administered Medications Medications (Trade) Dose Ordered Sig/Darryl Route PRN Reason Start Time Stop Time Status Last Admin Dose Admin IV Flush (NS Flush) 2 ml UNSCH PRN FLUSH FLUSH AFTER USING IV ACCESS 05/01/16 15:15 05/21/16 13:19 IV Flush (NS Flush) 2 ml BID FLUSH 05/01/16 21:00 05/26/16 21:36 Ondansetron HCl (Zofran Inj) 4 mg Q6H PRN IVP NAUSEA OR VOMITING 05/01/16 15:15 05/23/16 13:25 Metoclopramide HCl (Reglan Inj) 5 mg Q8H PRN IV PUSH NAUSEA 05/07/16 22:15 05/07/16 22:12 Docusate Sodium (Colace) 100 mg TID PO 05/08/16 09:00 05/26/16 18:27 Nicotine (Habitrol 7 Mg Patch.24 Hr) 1 patch DAILY TD 05/09/16 16:00 05/26/16 09:47 Miscellaneous Information 1 HS TD 05/09/16 21:00 05/26/16 21:00 Guaifenesin/ Dextromethorphan (Robitussin Dm 200-20 Mg/10 ml Liq) 10 ml Q6H PRN PO COUGH 05/11/16 17:00 05/13/16 04:13 Guaifenesin (Mucinex Er) 600 mg BID PO 05/11/16 21:30 05/26/16 21:35 Benzonatate (Tessalon) 200 mg TID PRN PO cough interfering w/rest 05/11/16 21:30 05/14/16 20:39 Acetaminophen (Tylenol) 650 mg Q6HR PRN PO fever > 100.4 05/11/16 21:30 05/17/16 13:06 Pantoprazole Sodium (Protonix) 40 mg DAILY PO 05/12/16 09:00 05/26/16 09:47 Enoxaparin Sodium (Lovenox Inj) 40 mg Q24H SQ 05/12/16 06:00 05/27/16 04:22 Oxycodone/ Acetaminophen (Percocet 5-325 Mg) 1 tab Q6H PRN PO PAIN SCALE 3 TO 5 05/13/16 11:15 05/26/16 05:47 Oxycodone/ Acetaminophen (Percocet 10-325 Mg) 1 tab Q6H PRN PO PAIN SCALE 6 TO 10 05/13/16 11:15 05/27/16 04:22 Morphine Sulfate (Morphine Inj) 4 mg Q3H PRN IV BREAKTHROUGH PAIN 05/13/16 11:15 05/25/16 05:23 Morphine Sulfate (Oramorph Sr) 15 mg Q12HR PO 05/25/16 21:00 05/26/16 21:35 Objective Remarks GENERAL: Middle-aged male, sitting up in bed, interval placement of tracheostomy. He sitting up in bed, coughing frequently, producing copious amounts of thick yellow phlegm. SKIN: Warm and dry. HEAD: Normocephalic. EYES: No scleral icterus. No injection or drainage. NECK: Supple, trachea midline. No JVD or lymphadenopathy. LYMPHATIC: No adenopathy. CARDIOVASCULAR: Regular rate and rhythm without murmurs. RESPIRATORY: Prolonged expiratory phase, scattered rhonchi. GASTROINTESTINAL: Abdomen soft, non-tender, nondistended. Feeding tube placement. EXTREMITIES: No cyanosis, or edema. MUSCULOSKELETAL: Adequate muscle tone. NEUROLOGICAL: No obvious focal deficit. Awake, alert, and oriented x3. PSYCHIATRIC: Appropriate mood and affect; insight and judgment normal. 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 +7-month history of progressive pain/soreness of the throat. two-month history of progressive difficulty breathing on inhalation. +hoarse voice --no difficulty swallowing or hemoptysis or hematemesis. --flexible laryngoscopy at bedside showed exophytic mass centered along the left false vocal cord was appreciated w/ submucosal extension. Plan 1. Squamous cell carcinoma of the larynx: Clinically staged as T4 N0 M0 disease of the glottic larynx. Initiate weekly cisplatin 40 mg per metered squared starting 05/20/2016. Radiation will be started on 05/21/2016. Proceed with week 2 of cisplatin today provided his chemistries and blood counts within normal limits. Recommend weekly CBC and CMP on Mondays. I will plan to dose him with chemotherapy every Thursday while he is here. Once radiation starts I will be Thursday through Thursday for approximately 7 weeks. Continue ongoing care. The oncology service will continue following with you. Urban Lofton MD May 27, 2016 07:55
[2016-05-27 08:28] LABS: AUTOMATED NEUTROPHIL # 4.3 TH/MM3 (1.8-7.7); BASOPHIL # 0.1 TH/MM3 (0-0.2); BASOPHIL % 0.8 % (0.0-2.0); EOSINOPHIL # 0.3 TH/MM3 (0-0.4); EOSINOPHIL % 4.6 % (0.0-4.0); HEMATOCRIT 34.9 % (39.0-51.0); HEMO FLAGS DIFF FINAL; LYMPH % 20.3 % (9.0-44.0); LYMPHOCYTE # 1.3 TH/MM3 (1.0-4.8); MEAN CELL VOLUME 90.6 FL (80.0-100.0); MEAN CORPUSCULAR HEMOGLOBIN 31.5 PG (27.0-34.0); MEAN CORPUSCULAR HGB CONC 34.8 % (32.0-36.0); MONO % 8.9 % (0.0-8.0); NEUT % 65.4 % (16.0-70.0); PLATELET COUNT 360 TH/MM3 (150-450); RED BLOOD COUNT 3.85 MIL/MM3 (4.50-5.90); RED CELL DISTRIBUTION WIDTH 13.5 % (11.6-17.2); WHITE BLOOD COUNT 6.6 TH/MM3 (4.0-11.0)
[2016-05-27] MEDS: guaiFENesin E.R. 600 MG TAB PO SCH ×2 (08:37→19:43)
[2016-05-27] MEDS: MORPHINE SULFATE 15 MG CONTROLLED RELEASE TAB PO SCH ×2 (08:37→19:44)
[2016-05-27] MEDS: DOCUSATE SODIUM 100 MG CAP PO SCH ×3 (08:37→17:05)
[2016-05-27] MEDS: PANTOPRAZOLE SOD 40 MG DELAYED RELEASE TAB PO SCH (08:38)
[2016-05-27] MEDS: NICOTINE 7 MG/24 HR PATCH TD SCH (08:38)
[2016-05-27] MEDS: SODIUM CHLORIDE 0.9% FLUSH 5 ML FLUSH FLUSH SCH ×2 (08:38→19:44)
[2016-05-27 09:01] LABS: ALKALINE PHOSPHATASE 80 U/L (45-117); ALT (GPT) 24 U/L (12-78); ANION GAP 7 MEQ/L (5-15); AST (GOT) 14 U/L (15-37); BICARBONATE 28.8 MEQ/L (21.0-32.0); BLOOD UREA NITROGEN 20 MG/DL (7-18); CHLORIDE 103 MEQ/L (98-107); GLOMERULAR FILTRATION RATE 119 ML/MIN (>89); SODIUM (NA) 139 MEQ/L (136-145); TOTAL BILIRUBIN ADULT 0.3 MG/DL (0.2-1.0)
--- NOTE | 2016-05-27 09:48 | HHI.PR ---
Subjective Remarks The patient has been ambulating. He says he would like to try low-dose sleeping medication. He has been having bowel movements. Tolerating a diet. No acute complaints at this time. Objective Vitals Vital Signs Date Time Temp Pulse Resp B/P Pulse Ox O2 Delivery O2 Flow Rate FiO2 05/27/16 08:00 96.6 63 16 93/52 95 05/27/16 06:07 18 05/27/16 04:23 70 18 108/62 96 05/27/16 00:00 97.1 74 16 111/66 96 05/26/16 23:51 16 05/26/16 22:20 95 05/26/16 20:00 98.3 78 16 115/67 96 05/26/16 15:52 98.2 72 20 105/69 95 05/26/16 12:00 97.7 72 20 112/69 96 I/O 05/26/16 05/26/16 05/26/16 05/27/16 05/27/16 05/27/16 07:00 15:00 23:00 07:00 15:00 23:00 Intake Total 240 ml Balance 240 ml Intake Oral 240 ml # Voids 2 5 2 # Bowel Movements 1 Result Diagram: 05/27/16 0648 05/27/16 0648 Imaging Last Impressions Chest X-Ray 05/10/16 0000 Signed Impressions: Service Date/Time: Tuesday, May 10, 2016 11:23 - CONCLUSION: Atelectasis at the lung bases. No other acute cardiopulmonary disease identified. Suhail Calderon MD Gastrostomy Tube Placement 05/06/16 0000 Signed Impressions: Service Date/Time: Friday, May 06, 2016 13:15 - CONCLUSION: Uncomplicated gastrostomy tube placement as above. Fabian Blackwood Jr., MD Chest CT 05/03/16 0000 Signed Impressions: Service Date/Time: Tuesday, May 03, 2016 11:33 - CONCLUSION: 1. Emphysema and right upper lobe scarring. Scarring is mildly nodular but still most likely benign. Six-month followup noncontrast chest CT recommended. 2. No lymphadenopathy. 3. Coronary artery calcification. John Mcdonnell MD Abdomen/Pelvis CT 05/03/16 0000 Signed Impressions: Service Date/Time: Tuesday, May 03, 2016 11:33 - CONCLUSION: 1. No malignancy or other acute abnormality seen within the abdomen or pelvis. 2. Diverticulosis of the colon without acute inflammatory changes. 3. Atherosclerotic aorta. No aneurysm. John Mcdonnell MD Neck CT 05/01/16 0000 Signed Impressions: Service Date/Time: April 13:51 - CONCLUSION: 1. Large mass involving the larynx measuring 3.5 x 2.0 cm causing significant compromise to the airway. No adenopathy observed. Malignancy is felt most likely. 2. Severe emphysematous changes. 3. Areas of probable scarring involving the right lung apex. This is nodular in appearance in one area that is partially visualized. I suggest a CT of the thorax to further evaluate. Fabian Blackwood Jr., MD Objective Remarks General: No acute distress. HEENT: Trach in place. Heart: Regular rate and rhythm. No murmur. Lungs: Clear to auscultation bilaterally. No wheezes, rales, or rhonchi. Breathing is nonlabored. Abdomen: Soft, nontender, nondistended. PEG tube in place - C/D/I. Extremities: No lower extremity edema. Neuro: No gross deficits. Psych: Mood and affect appropriate. Procedures 05/05/16 Laryngeal mass biopsy 05/05/16 tracheostomy Medications and IVs Current Medications Medications (Trade) Dose Ordered Sig/Darryl Route Start Time Stop Time Status Last Admin (NS Flush) 2 ml UNSCH PRN FLUSH 05/01/16 15:15 05/21/16 13:19 (NS Flush) 2 ml BID FLUSH 05/01/16 21:00 05/27/16 08:38 (Zofran Inj) 4 mg Q6H PRN IVP 05/01/16 15:15 05/23/16 13:25 (Reglan Inj) 5 mg Q8H PRN IV PUSH 05/07/16 22:15 05/07/16 22:12 (Colace) 100 mg TID PO 05/08/16 09:00 05/27/16 08:37 (Habitrol 7 Mg Patch.24 Hr) 1 patch DAILY TD 05/09/16 16:00 05/27/16 08:38 Miscellaneous Information 1 HS TD 05/09/16 21:00 05/26/16 21:00 (Robitussin Dm 200-20 Mg/10 ml Liq) 10 ml Q6H PRN PO 05/11/16 17:00 05/13/16 04:13 (Mucinex Er) 600 mg BID PO 05/11/16 21:30 05/27/16 08:37 (Tessalon) 200 mg TID PRN PO 05/11/16 21:30 05/14/16 20:39 (Tylenol) 650 mg Q6HR PRN PO 05/11/16 21:30 05/17/16 13:06 (Protonix) 40 mg DAILY PO 05/12/16 09:00 05/27/16 08:38 (Lovenox Inj) 40 mg Q24H SQ 05/12/16 06:00 05/27/16 04:22 (Tylenol) 650 mg Q6H PRN PO 05/13/16 11:15 (Percocet 5-325 Mg) 1 tab Q6H PRN PO 05/13/16 11:15 05/26/16 05:47 (Percocet 10-325 Mg) 1 tab Q6H PRN PO 05/13/16 11:15 05/27/16 04:22 (Morphine Inj) 4 mg Q3H PRN IV 05/13/16 11:15 05/25/16 05:23 (Narcan Inj) 0.4 mg UNSCH PRN IV 05/13/16 11:15 (Oramorph Sr) 15 mg Q12HR PO 05/25/16 21:00 05/27/16 08:37 A/P Problem List: (1) Laryngeal mass ICD Code: J38.7 Status: Acute (2) COPD (chronic obstructive pulmonary disease) ICD Code: J44.9 Status: Chronic (3) Tobacco abuse ICD Code: Z72.0 Status: Chronic (4) Nausea & vomiting ICD Code: R11.2 Status: Resolved (5) Hyponatremia ICD Code: E87.1 Status: Chronic (6) Low grade fever ICD Code: R50.9 Status: Acute (7) Leukocytosis ICD Code: D72.829 Status: Acute Assessment and Plan Laryngeal Mass/ Invasive Squamous Cell Carcinoma Oncology, ENT, General Surgery following. Status post Biopsy of the mass, status post tracheostomy. PEG tube placed on 05/06/16. - On regular diet as per surgery, speech therapy following. - chemotherapy and radiation per oncology. COPD Stable at this time. - continue bronchodilators, mucolytics and incentive spirometry. - Strongly recommended to stop smoking. HCAP Bilateral base infiltrates. Pseudomonas Aeruginosa fluorescens. - s/p course of antibiotics. Hypotension Blood pressure has been somewhat low. - encourage PO intake. Fluids as needed. PPx: Lovenox. Discharge Planning Awaiting oncology clearance. Problem Qualifiers (1) COPD (chronic obstructive pulmonary disease): Qualified Code: J42 - Chronic bronchitis, unspecified chronic bronchitis type (2) Leukocytosis: Qualified Code: D72.829 - Leukocytosis, unspecified type Isael Murguia DO May 27, 2016 09:48
[2016-05-27] MEDS ORDERED: ZOLPIDEM TARTRATE 5 MG TAB PO PRN (10:00)
[2016-05-27] MEDS ORDERED: SODIUM CHLORID 0.9% IV SCH (12:00)
[2016-05-27] MEDS ORDERED: POTASSIUM CHLORIDE IV SCH ×3 (12:00→14:00)
[2016-05-27] MEDS: DEXAMETHASONE INJ 10 MG in SODIUM CHLORIDE 0.9% INJ 50 ML IV SCH (12:12)
[2016-05-27] MEDS: GRANISETRON HCL 1 MG/ML VIAL IV SCH (12:12)
[2016-05-27] MEDS: FUROSEMIDE 40 MG/4 ML VIAL IV PUSH SCH (12:13)
[2016-05-27] MEDS: MANNITOL 12.5 GM/50 ML VIAL IV SCH (12:30)
[2016-05-27] MEDS ORDERED: NACL 0.45% IV SCH (13:00)
[2016-05-27] MEDS ORDERED: DEXT 5% IV SCH (13:00)
[2016-05-27] MEDS ORDERED: MAGNESIUM SULFATE IV SCH (14:00)
[2016-05-27] MEDS ORDERED: [UNRECOGNIZED DRUG - OTHER] IV SCH (14:00)
[2016-05-27] MEDS: CISPLATIN IV SCH (14:43)
[2016-05-27] MEDS: SODIUM CHLORIDE 0.9% IV SCH (14:43)
[2016-05-27] MEDS: REMOVE OLD NICODERM (NICOTINE) PATCH TD SCH (19:44)
[2016-05-28] VITALS (8 sets, daily range): BP systolic 106–124; BP diastolic 58–72; PULSE 64–97; RESP 16–18; TEMP 96.5–98.1; O2SAT 94–100
[2016-05-28] MEDS: ENOXAPARIN SODIUM 40 MG/0.4 ML SYRINGE SQ SCH (04:14)
[2016-05-28] MEDS: oxyCODONE/ACETAMINOPHEN 10 MG/325 MG TAB PO PRN ×3 (04:14→17:14)
[2016-05-28] MEDS: DOCUSATE SODIUM 100 MG CAP PO SCH ×3 (09:06→21:10)
[2016-05-28] MEDS: guaiFENesin E.R. 600 MG TAB PO SCH ×2 (09:07→21:10)
[2016-05-28] MEDS: PANTOPRAZOLE SOD 40 MG DELAYED RELEASE TAB PO SCH (09:07)
[2016-05-28] MEDS: NICOTINE 7 MG/24 HR PATCH TD SCH (09:07)
[2016-05-28] MEDS: MORPHINE SULFATE 15 MG CONTROLLED RELEASE TAB PO SCH ×2 (09:08→21:11)
[2016-05-28] MEDS: SODIUM CHLORIDE 0.9% FLUSH 5 ML FLUSH FLUSH SCH ×2 (09:08→21:11)
--- NOTE | 2016-05-28 14:06 | HHI.PR ---
Subjective Remarks The pt was resting in bed comfortably. He was about to go for radiation. He had no acute complaints. Objective Vitals Vital Signs Date Time Temp Pulse Resp B/P Pulse Ox O2 Delivery O2 Flow Rate FiO2 05/28/16 12:00 97.0 88 16 124/72 95 05/28/16 08:00 98.1 97 18 106/66 94 05/28/16 04:00 96.5 69 16 108/58 95 05/28/16 00:00 96.9 72 16 123/72 94 05/27/16 20:00 96.5 77 16 122/69 94 05/27/16 16:00 96.2 70 16 118/84 95 I/O 05/27/16 05/27/16 05/27/16 05/28/16 05/28/16 05/28/16 07:00 15:00 23:00 07:00 15:00 23:00 Intake Total 960 ml 2000 ml 240 ml Output Total 850 ml Balance 960 ml 1150 ml 240 ml Intake Oral 960 ml 240 ml IV Total 2000 ml Output Urine Total 850 ml # Voids 2 3 1 Result Diagram: 05/27/16 0648 05/27/16 0648 Imaging Last Impressions Chest X-Ray 05/10/16 0000 Signed Impressions: Service Date/Time: Tuesday, May 10, 2016 11:23 - CONCLUSION: Atelectasis at the lung bases. No other acute cardiopulmonary disease identified. Suhail Calderon MD Gastrostomy Tube Placement 05/06/16 0000 Signed Impressions: Service Date/Time: Friday, May 06, 2016 13:15 - CONCLUSION: Uncomplicated gastrostomy tube placement as above. Fabian Blackwood Jr., MD Chest CT 05/03/16 0000 Signed Impressions: Service Date/Time: Tuesday, May 03, 2016 11:33 - CONCLUSION: 1. Emphysema and right upper lobe scarring. Scarring is mildly nodular but still most likely benign. Six-month followup noncontrast chest CT recommended. 2. No lymphadenopathy. 3. Coronary artery calcification. John Mcdonnell MD Abdomen/Pelvis CT 05/03/16 0000 Signed Impressions: Service Date/Time: Tuesday, May 03, 2016 11:33 - CONCLUSION: 1. No malignancy or other acute abnormality seen within the abdomen or pelvis. 2. Diverticulosis of the colon without acute inflammatory changes. 3. Atherosclerotic aorta. No aneurysm. John Mcdonnell MD Neck CT 05/01/16 0000 Signed Impressions: Service Date/Time: April 13:51 - CONCLUSION: 1. Large mass involving the larynx measuring 3.5 x 2.0 cm causing significant compromise to the airway. No adenopathy observed. Malignancy is felt most likely. 2. Severe emphysematous changes. 3. Areas of probable scarring involving the right lung apex. This is nodular in appearance in one area that is partially visualized. I suggest a CT of the thorax to further evaluate. Fabian Blackwood Jr., MD Objective Remarks General: No acute distress. HEENT: Trach in place. Heart: Regular rate and rhythm. No murmur. Lungs: Clear to auscultation bilaterally. No wheezes, rales, or rhonchi. Breathing is nonlabored. Abdomen: Soft, nontender, nondistended. PEG tube in place - C/D/I. Extremities: No lower extremity edema. Neuro: No gross deficits. Psych: Mood and affect appropriate. Procedures 05/05/16 Laryngeal mass biopsy 05/05/16 tracheostomy Medications and IVs Current Medications Medications (Trade) Dose Ordered Sig/Darryl Route Start Time Stop Time Status Last Admin (NS Flush) 2 ml UNSCH PRN FLUSH 05/01/16 15:15 05/21/16 13:19 (NS Flush) 2 ml BID FLUSH 05/01/16 21:00 05/28/16 09:08 (Zofran Inj) 4 mg Q6H PRN IVP 05/01/16 15:15 05/23/16 13:25 (Reglan Inj) 5 mg Q8H PRN IV PUSH 05/07/16 22:15 05/07/16 22:12 (Colace) 100 mg TID PO 05/08/16 09:00 05/28/16 09:06 (Habitrol 7 Mg Patch.24 Hr) 1 patch DAILY TD 05/09/16 16:00 05/28/16 09:07 Miscellaneous Information 1 HS TD 05/09/16 21:00 05/27/16 19:44 (Robitussin Dm 200-20 Mg/10 ml Liq) 10 ml Q6H PRN PO 05/11/16 17:00 05/13/16 04:13 (Mucinex Er) 600 mg BID PO 05/11/16 21:30 05/28/16 09:07 (Tessalon) 200 mg TID PRN PO 05/11/16 21:30 05/14/16 20:39 (Tylenol) 650 mg Q6HR PRN PO 05/11/16 21:30 05/17/16 13:06 (Protonix) 40 mg DAILY PO 05/12/16 09:00 05/28/16 09:07 (Lovenox Inj) 40 mg Q24H SQ 05/12/16 06:00 05/28/16 04:14 (Tylenol) 650 mg Q6H PRN PO 05/13/16 11:15 (Morphine Inj) 4 mg Q3H PRN IV 05/13/16 11:15 05/25/16 05:23 (Narcan Inj) 0.4 mg UNSCH PRN IV 05/13/16 11:15 (Oramorph Sr) 15 mg Q12HR PO 05/25/16 21:00 05/28/16 09:08 (Percocet 5-325 Mg) 1 tab Q4H PRN PO 05/27/16 13:15 (Percocet 10-325 Mg) 1 tab Q4H PRN PO 05/27/16 13:15 05/28/16 09:07 (Ambien) 5 mg HS PRN PO 05/27/16 10:00 05/27/16 21:26 Furosemide 40 mg 40 mg Q7D IV PUSH 05/27/16 12:00 06/17/16 12:59 05/27/16 12:13 (Decadron Inj/NS Inj) 52.5 ml @ 210 mls/hr Q7D IV 05/27/16 12:00 06/17/16 12:14 05/27/16 12:12 Mannitol 12.5 gm 12.5 gm Q7D IV 05/27/16 12:30 06/17/16 13:31 05/27/16 12:30 (Platinol Inj/NS Inj) 225 ml @ 225 mls/hr Q7D IV 05/27/16 13:00 06/17/16 13:59 05/27/16 14:43 Granisetron HCl 1 mg 1 mg Q7D IV 05/27/16 12:00 06/17/16 12:01 05/27/16 12:12 Potassium Chloride 10 meq/ Sodium Chloride 505 ml @ 500 mls/hr Q1H1M IV 06/03/16 12:00 06/03/16 13:00 Potassium Chloride 10 meq/ Dextrose/Sodium Chloride 505 ml @ 500 mls/hr Q1H1M IV 06/03/16 13:00 06/03/16 14:00 Potassium Chloride 10 meq/ Magnesium Sulfate 8 meq/Dextrose/ Sodium Chloride 1,007 ml @ 500 mls/hr Q2H1M IV 06/03/16 14:00 06/03/16 16:00 Potassium Chloride 10 meq/ Sodium Chloride 505 ml @ 500 mls/hr Q1H1M IV 06/10/16 12:00 06/10/16 13:00 Potassium Chloride 10 meq/ Dextrose/Sodium Chloride 505 ml @ 500 mls/hr Q1H1M IV 06/10/16 13:00 06/10/16 14:00 Potassium Chloride 10 meq/ Magnesium Sulfate 8 meq/Dextrose/ Sodium Chloride 1,007 ml @ 500 mls/hr Q2H1M IV 06/10/16 14:00 06/10/16 16:00 Potassium Chloride 10 meq/ Sodium Chloride 505 ml @ 500 mls/hr Q1H1M IV 06/17/16 12:00 06/17/16 13:00 Potassium Chloride 10 meq/ Dextrose/Sodium Chloride 505 ml @ 500 mls/hr Q1H1M IV 06/17/16 13:00 06/17/16 14:00 (KCl Inj/ Magnesium Sulfate Inj/D5W-1/2 NS 1000 ml Inj) 1,007 ml @ 500 mls/hr Q2H1M IV 06/17/16 14:00 06/17/16 16:00 A/P Problem List: (1) Laryngeal mass ICD Code: J38.7 Status: Acute (2) COPD (chronic obstructive pulmonary disease) ICD Code: J44.9 Status: Chronic (3) Tobacco abuse ICD Code: Z72.0 Status: Chronic (4) Nausea & vomiting ICD Code: R11.2 Status: Resolved (5) Hyponatremia ICD Code: E87.1 Status: Chronic (6) Low grade fever ICD Code: R50.9 Status: Acute (7) Leukocytosis ICD Code: D72.829 Status: Acute Assessment and Plan Laryngeal mass/ Invasive squamous cell carcinoma Oncology, ENT, General Surgery following. Status post biopsy of the mass, status post tracheostomy. PEG tube placed on 05/06/16. - On regular diet as per surgery, speech therapy following. - chemotherapy and radiation per oncology. - follow labs as needed. COPD Stable at this time. - continue bronchodilators, mucolytics and incentive spirometry. - Strongly recommended to stop smoking. - oxygen as needed. HCAP Bilateral base infiltrates. Sputum culture grew Pseudomonas Aeruginosa. - s/p course of antibiotics. Hypotension Well controlled 05/28. - Monitor. PPx: Lovenox. Discharge Planning Awaiting oncology clearance. Problem Qualifiers (1) COPD (chronic obstructive pulmonary disease): Qualified Code: J42 - Chronic bronchitis, unspecified chronic bronchitis type (2) Leukocytosis: Qualified Code: D72.829 - Leukocytosis, unspecified type Isael Murguia DO May 28, 2016 14:06
[2016-05-28] MEDS: REMOVE OLD NICODERM (NICOTINE) PATCH TD SCH (21:00)
[2016-05-28] MEDS: TEMAZEPAM 15 MG CAP PO PRN (21:11)
[2016-05-29] VITALS (8 sets, daily range): BP systolic 103–117; BP diastolic 61–70; PULSE 65–85; RESP 16–18; TEMP 96.7–97.6; O2SAT 93–98
[2016-05-29] MEDS: ENOXAPARIN SODIUM 40 MG/0.4 ML SYRINGE SQ SCH (05:41)
[2016-05-29] MEDS: oxyCODONE/ACETAMINOPHEN 10 MG/325 MG TAB PO PRN ×3 (05:41→17:40)
--- NOTE | 2016-05-29 08:56 | HHI.PR ---
Subjective Remarks ALERT NO SOB TRACH OK started therapy Objective Vital Signs Date Time Temp Pulse Resp B/P Pulse Ox O2 Delivery O2 Flow Rate FiO2 05/29/16 08:33 97.0 66 16 112/62 96 05/29/16 05:00 97.1 74 16 112/63 94 05/29/16 00:00 97.6 65 16 109/61 97 05/28/16 22:43 18 05/28/16 20:00 96.7 64 16 107/63 99 05/28/16 19:31 98 Trach Collar 28 05/28/16 18:14 18 05/28/16 16:00 97.8 80 16 117/69 100 05/28/16 15:02 99 Trach Collar 28 05/28/16 12:00 97.0 88 16 124/72 95 I/O 05/28/16 05/28/16 05/28/16 05/29/16 05/29/16 05/29/16 07:00 15:00 23:00 07:00 15:00 23:00 Intake Total 240 ml 720 ml 480 ml 240 ml Balance 240 ml 720 ml 480 ml 240 ml Intake Oral 240 ml 720 ml 480 ml 240 ml # Voids 1 3 2 2 # Bowel Movements 0 Result Diagram: 05/27/16 0648 05/27/16 0648 Procedures 05/05/16 Laryngeal mass biopsy 05/05/16 tracheostomy Objective Remarks GENERAL: SKIN: Warm and dry. HEAD: Atraumatic. Normocephalic. EYES: Pupils equal and round. No scleral icterus. No injection or drainage. ENT: No nasal bleeding or discharge. Mucous membranes pink and moist. NECK: Trachea midline. No JVD. TRACH IN PLACE CARDIOVASCULAR: Regular rate and rhythm. RESPIRATORY: No accessory muscle use. Clear to auscultation. Breath sounds equal bilaterally. GASTROINTESTINAL: Abdomen soft, non-tender, nondistended. Hepatic and splenic margins not palpable. MUSCULOSKELETAL: Extremities without clubbing, cyanosis, or edema. No obvious deformities. NEUROLOGICAL: Awake and alert. No obvious cranial nerve deficits. Motor grossly within normal limits. Five out of 5 muscle strength in the arms and legs. Normal speech. PSYCHIATRIC: Appropriate mood and affect; insight and judgment normal. Assessment and Plan Assessment and Plan LARYNGEAL CA S/P TRACH PLAN PULM TOILET REMOVE TRACHEOSTOMY WHEN POSSIBLE Kamran Andrew MD May 29, 2016 08:56
[2016-05-29] MEDS: SODIUM CHLORIDE 0.9% FLUSH 5 ML FLUSH FLUSH SCH ×2 (09:00→20:23)
[2016-05-29] MEDS: guaiFENesin E.R. 600 MG TAB PO SCH ×2 (10:27→20:23)
[2016-05-29] MEDS: PANTOPRAZOLE SOD 40 MG DELAYED RELEASE TAB PO SCH (10:27)
[2016-05-29] MEDS: DOCUSATE SODIUM 100 MG CAP PO SCH ×3 (10:27→17:39)
[2016-05-29] MEDS: MORPHINE SULFATE 15 MG CONTROLLED RELEASE TAB PO SCH ×2 (10:27→20:22)
[2016-05-29] MEDS: NICOTINE 7 MG/24 HR PATCH TD SCH (10:28)
[2016-05-29] MEDS: ONDANSETRON HCL 4 MG/2 ML VIAL IVP PRN (13:46)
--- NOTE | 2016-05-29 15:06 | HHI.PR ---
Subjective Remarks The pt was resting comfortably. He had radiation earlier today. He says every once in a while he notices small amounts of blood in his sputum. Has been having bowel movements. Has been ambulating. Tolerating a diet. Objective Vitals Vital Signs Date Time Temp Pulse Resp B/P Pulse Ox O2 Delivery O2 Flow Rate FiO2 05/29/16 13:36 93 Trach Collar 21 05/29/16 12:37 97.2 69 16 115/68 94 05/29/16 08:33 97.0 66 16 112/62 96 05/29/16 05:00 97.1 74 16 112/63 94 05/29/16 00:00 97.6 65 16 109/61 97 05/28/16 22:43 18 05/28/16 20:00 96.7 64 16 107/63 99 05/28/16 19:31 98 Trach Collar 28 05/28/16 18:14 18 05/28/16 16:00 97.8 80 16 117/69 100 I/O 05/28/16 05/28/16 05/28/16 05/29/16 05/29/16 05/29/16 07:00 15:00 23:00 07:00 15:00 23:00 Intake Total 240 ml 720 ml 480 ml 240 ml Balance 240 ml 720 ml 480 ml 240 ml Intake Oral 240 ml 720 ml 480 ml 240 ml # Voids 1 3 2 2 # Bowel Movements 0 Result Diagram: 05/27/16 0648 05/27/16 0648 Imaging Last Impressions Chest X-Ray 05/10/16 0000 Signed Impressions: Service Date/Time: Tuesday, May 10, 2016 11:23 - CONCLUSION: Atelectasis at the lung bases. No other acute cardiopulmonary disease identified. Suhail Calderon MD Gastrostomy Tube Placement 05/06/16 0000 Signed Impressions: Service Date/Time: Friday, May 06, 2016 13:15 - CONCLUSION: Uncomplicated gastrostomy tube placement as above. Fabian Blackwood Jr., MD Chest CT 05/03/16 0000 Signed Impressions: Service Date/Time: Tuesday, May 03, 2016 11:33 - CONCLUSION: 1. Emphysema and right upper lobe scarring. Scarring is mildly nodular but still most likely benign. Six-month followup noncontrast chest CT recommended. 2. No lymphadenopathy. 3. Coronary artery calcification. John Mcdonnell MD Abdomen/Pelvis CT 05/03/16 0000 Signed Impressions: Service Date/Time: Tuesday, May 03, 2016 11:33 - CONCLUSION: 1. No malignancy or other acute abnormality seen within the abdomen or pelvis. 2. Diverticulosis of the colon without acute inflammatory changes. 3. Atherosclerotic aorta. No aneurysm. John Mcdonnell MD Neck CT 05/01/16 0000 Signed Impressions: Service Date/Time: April 13:51 - CONCLUSION: 1. Large mass involving the larynx measuring 3.5 x 2.0 cm causing significant compromise to the airway. No adenopathy observed. Malignancy is felt most likely. 2. Severe emphysematous changes. 3. Areas of probable scarring involving the right lung apex. This is nodular in appearance in one area that is partially visualized. I suggest a CT of the thorax to further evaluate. Fabian Blackwood Jr., MD Objective Remarks General: No acute distress. HEENT: Trach in place. Heart: Regular rate and rhythm. No murmur. Lungs: Clear to auscultation bilaterally. No wheezes, rales, or rhonchi. Breathing is nonlabored. Abdomen: Soft, nontender, nondistended. PEG tube in place - C/D/I. Extremities: No lower extremity edema. Neuro: No gross deficits. Psych: Mood and affect appropriate. Procedures 05/05/16 Laryngeal mass biopsy 05/05/16 tracheostomy Medications and IVs Current Medications Medications (Trade) Dose Ordered Sig/Darryl Route Start Time Stop Time Status Last Admin (NS Flush) 2 ml UNSCH PRN FLUSH 05/01/16 15:15 05/21/16 13:19 (NS Flush) 2 ml BID FLUSH 05/01/16 21:00 05/29/16 09:00 (Zofran Inj) 4 mg Q6H PRN IVP 05/01/16 15:15 05/29/16 13:46 (Reglan Inj) 5 mg Q8H PRN IV PUSH 05/07/16 22:15 05/07/16 22:12 (Colace) 100 mg TID PO 05/08/16 09:00 05/29/16 13:44 (Habitrol 7 Mg Patch.24 Hr) 1 patch DAILY TD 05/09/16 16:00 05/29/16 10:28 Miscellaneous Information 1 HS TD 05/09/16 21:00 05/28/16 21:00 (Robitussin Dm 200-20 Mg/10 ml Liq) 10 ml Q6H PRN PO 05/11/16 17:00 05/13/16 04:13 (Mucinex Er) 600 mg BID PO 05/11/16 21:30 05/29/16 10:27 (Tessalon) 200 mg TID PRN PO 05/11/16 21:30 05/14/16 20:39 (Tylenol) 650 mg Q6HR PRN PO 05/11/16 21:30 05/17/16 13:06 (Protonix) 40 mg DAILY PO 05/12/16 09:00 05/29/16 10:27 (Lovenox Inj) 40 mg Q24H SQ 05/12/16 06:00 05/29/16 05:41 (Tylenol) 650 mg Q6H PRN PO 05/13/16 11:15 (Morphine Inj) 4 mg Q3H PRN IV 05/13/16 11:15 05/25/16 05:23 (Narcan Inj) 0.4 mg UNSCH PRN IV 05/13/16 11:15 (Oramorph Sr) 15 mg Q12HR PO 05/25/16 21:00 05/29/16 10:27 (Percocet 5-325 Mg) 1 tab Q4H PRN PO 05/27/16 13:15 (Percocet 10-325 Mg) 1 tab Q4H PRN PO 05/27/16 13:15 05/29/16 10:31 Furosemide 40 mg 40 mg Q7D IV PUSH 05/27/16 12:00 06/17/16 12:59 05/27/16 12:13 (Decadron Inj/NS Inj) 52.5 ml @ 210 mls/hr Q7D IV 05/27/16 12:00 06/17/16 12:14 05/27/16 12:12 Mannitol 12.5 gm 12.5 gm Q7D IV 05/27/16 12:30 06/17/16 13:31 05/27/16 12:30 (Platinol Inj/NS Inj) 225 ml @ 225 mls/hr Q7D IV 05/27/16 13:00 06/17/16 13:59 05/27/16 14:43 Granisetron HCl 1 mg 1 mg Q7D IV 05/27/16 12:00 06/17/16 12:01 05/27/16 12:12 Potassium Chloride 10 meq/ Sodium Chloride 505 ml @ 500 mls/hr Q1H1M IV 06/03/16 12:00 06/03/16 13:00 Potassium Chloride 10 meq/ Dextrose/Sodium Chloride 505 ml @ 500 mls/hr Q1H1M IV 06/03/16 13:00 06/03/16 14:00 Potassium Chloride 10 meq/ Magnesium Sulfate 8 meq/Dextrose/ Sodium Chloride 1,007 ml @ 500 mls/hr Q2H1M IV 06/03/16 14:00 06/03/16 16:00 Potassium Chloride 10 meq/ Sodium Chloride 505 ml @ 500 mls/hr Q1H1M IV 06/10/16 12:00 06/10/16 13:00 Potassium Chloride 10 meq/ Dextrose/Sodium Chloride 505 ml @ 500 mls/hr Q1H1M IV 06/10/16 13:00 06/10/16 14:00 Potassium Chloride 10 meq/ Magnesium Sulfate 8 meq/Dextrose/ Sodium Chloride 1,007 ml @ 500 mls/hr Q2H1M IV 06/10/16 14:00 06/10/16 16:00 Potassium Chloride 10 meq/ Sodium Chloride 505 ml @ 500 mls/hr Q1H1M IV 06/17/16 12:00 06/17/16 13:00 Potassium Chloride 10 meq/ Dextrose/Sodium Chloride 505 ml @ 500 mls/hr Q1H1M IV 06/17/16 13:00 06/17/16 14:00 (KCl Inj/ Magnesium Sulfate Inj/D5W-1/2 NS 1000 ml Inj) 1,007 ml @ 500 mls/hr Q2H1M IV 06/17/16 14:00 06/17/16 16:00 (Restoril) 15 mg HS PRN PO 05/28/16 21:00 05/28/16 21:11 A/P Problem List: (1) Laryngeal mass ICD Code: J38.7 Status: Acute (2) COPD (chronic obstructive pulmonary disease) ICD Code: J44.9 Status: Chronic (3) Tobacco abuse ICD Code: Z72.0 Status: Chronic (4) Nausea & vomiting ICD Code: R11.2 Status: Resolved (5) Hyponatremia ICD Code: E87.1 Status: Chronic (6) Low grade fever ICD Code: R50.9 Status: Acute (7) Leukocytosis ICD Code: D72.829 Status: Acute Assessment and Plan Laryngeal mass/ Invasive squamous cell carcinoma Oncology, ENT, General Surgery following. Status post biopsy of the mass, status post tracheostomy. PEG tube placed on 05/06/16. - On regular diet as per surgery, speech therapy following. - chemotherapy and radiation per oncology. - follow labs as needed. Hemoptysis The pt endorses small amounts of blood occasionally with sputum production. S/t cancer, trach and radiation. - continue to monitor. CBC stable. COPD Stable at this time. - continue bronchodilators, mucolytics and incentive spirometry. - Strongly recommended to stop smoking. - oxygen as needed. - follow up with pulmonology. HCAP Bilateral base infiltrates. Sputum culture grew Pseudomonas Aeruginosa. - s/p course of antibiotics. Hypotension Well controlled 05/29. - Monitor. PPx: Lovenox. Discharge Planning Awaiting oncology clearance. Problem Qualifiers (1) COPD (chronic obstructive pulmonary disease): Qualified Code: J42 - Chronic bronchitis, unspecified chronic bronchitis type (2) Leukocytosis: Qualified Code: D72.829 - Leukocytosis, unspecified type Isael Murguia DO May 29, 2016 15:06
[2016-05-29] MEDS: TEMAZEPAM 15 MG CAP PO PRN (20:23)
[2016-05-29] MEDS: REMOVE OLD NICODERM (NICOTINE) PATCH TD SCH (20:23)
[2016-05-30] VITALS (9 sets, daily range): BP systolic 95–123; BP diastolic 58–68; PULSE 65–90; RESP 16–19; TEMP 96.5–98.2; O2SAT 95–98
[2016-05-30] MEDS: oxyCODONE/ACETAMINOPHEN 10 MG/325 MG TAB PO PRN ×3 (02:30→17:10)
[2016-05-30] MEDS: ENOXAPARIN SODIUM 40 MG/0.4 ML SYRINGE SQ SCH (05:32)
--- NOTE | 2016-05-30 08:29 | HHI.PR ---
Subjective Remarks ALERT NO SOB TRACH OK started therapy Objective Vital Signs Date Time Temp Pulse Resp B/P Pulse Ox O2 Delivery O2 Flow Rate FiO2 05/30/16 04:00 97.5 68 17 112/58 98 05/30/16 03:31 18 05/30/16 00:00 97.0 90 17 110/68 98 05/29/16 21:24 16 05/29/16 20:09 96 Trach Collar 28 05/29/16 20:00 97.6 85 18 117/70 98 05/29/16 16:00 96.7 72 16 103/66 97 05/29/16 13:36 93 Trach Collar 21 05/29/16 12:37 97.2 69 16 115/68 94 05/29/16 08:33 97.0 66 16 112/62 96 I/O 05/29/16 05/29/16 05/29/16 05/30/16 05/30/16 05/30/16 07:00 15:00 23:00 07:00 15:00 23:00 Intake Total 240 ml 960 ml 480 ml 240 ml Balance 240 ml 960 ml 480 ml 240 ml Intake Oral 240 ml 960 ml 480 ml 240 ml # Voids 2 3 2 2 Result Diagram: 05/27/16 0648 05/27/16 0648 Procedures 05/05/16 Laryngeal mass biopsy 05/05/16 tracheostomy Objective Remarks GENERAL: SKIN: Warm and dry. HEAD: Atraumatic. Normocephalic. EYES: Pupils equal and round. No scleral icterus. No injection or drainage. ENT: No nasal bleeding or discharge. Mucous membranes pink and moist. NECK: Trachea midline. No JVD. TRACH IN PLACE CARDIOVASCULAR: Regular rate and rhythm. RESPIRATORY: No accessory muscle use. Clear to auscultation. Breath sounds equal bilaterally. GASTROINTESTINAL: Abdomen soft, non-tender, nondistended. Hepatic and splenic margins not palpable. MUSCULOSKELETAL: Extremities without clubbing, cyanosis, or edema. No obvious deformities. NEUROLOGICAL: Awake and alert. No obvious cranial nerve deficits. Motor grossly within normal limits. Five out of 5 muscle strength in the arms and legs. Normal speech. PSYCHIATRIC: Appropriate mood and affect; insight and judgment normal. Assessment and Plan Assessment and Plan LARYNGEAL CA S/P TRACH PLAN PULM TOILET REMOVE TRACHEOSTOMY WHEN POSSIBLE Kamran Andrew MD May 30, 2016 08:29
[2016-05-30] MEDS: SODIUM CHLORIDE 0.9% FLUSH 5 ML FLUSH FLUSH SCH ×2 (09:00→21:15)
[2016-05-30] MEDS: guaiFENesin E.R. 600 MG TAB PO SCH ×2 (09:12→21:15)
[2016-05-30] MEDS: MORPHINE SULFATE 15 MG CONTROLLED RELEASE TAB PO SCH ×2 (09:12→21:16)
[2016-05-30] MEDS: NICOTINE 7 MG/24 HR PATCH TD SCH (09:12)
[2016-05-30] MEDS: PANTOPRAZOLE SOD 40 MG DELAYED RELEASE TAB PO SCH (09:12)
[2016-05-30] MEDS: DOCUSATE SODIUM 100 MG CAP PO SCH ×3 (09:12→17:08)
--- NOTE | 2016-05-30 15:19 | HHI.PR ---
Subjective Remarks The pt was resting comfortably in bed. He was about to go for radiation. He had no acute complaints. Discussed with nursing. Objective Vitals Vital Signs Date Time Temp Pulse Resp B/P Pulse Ox O2 Delivery O2 Flow Rate FiO2 05/30/16 09:50 96 21 05/30/16 08:00 96.5 72 18 123/67 96 05/30/16 04:00 97.5 68 17 112/58 98 05/30/16 03:31 18 05/30/16 00:00 97.0 90 17 110/68 98 05/29/16 21:24 16 05/29/16 20:09 96 Trach Collar 28 05/29/16 20:00 97.6 85 18 117/70 98 05/29/16 16:00 96.7 72 16 103/66 97 I/O 05/29/16 05/29/16 05/29/16 05/30/16 05/30/16 05/30/16 07:00 15:00 23:00 07:00 15:00 23:00 Intake Total 240 ml 960 ml 480 ml 240 ml Balance 240 ml 960 ml 480 ml 240 ml Intake Oral 240 ml 960 ml 480 ml 240 ml # Voids 2 3 2 2 Result Diagram: 05/27/16 0648 05/27/16 0648 Imaging Last Impressions Chest X-Ray 05/10/16 0000 Signed Impressions: Service Date/Time: Tuesday, May 10, 2016 11:23 - CONCLUSION: Atelectasis at the lung bases. No other acute cardiopulmonary disease identified. Suhail Calderon MD Gastrostomy Tube Placement 05/06/16 0000 Signed Impressions: Service Date/Time: Friday, May 06, 2016 13:15 - CONCLUSION: Uncomplicated gastrostomy tube placement as above. Fabian Blackwood Jr., MD Chest CT 05/03/16 0000 Signed Impressions: Service Date/Time: Tuesday, May 03, 2016 11:33 - CONCLUSION: 1. Emphysema and right upper lobe scarring. Scarring is mildly nodular but still most likely benign. Six-month followup noncontrast chest CT recommended. 2. No lymphadenopathy. 3. Coronary artery calcification. John Mcdonnell MD Abdomen/Pelvis CT 05/03/16 0000 Signed Impressions: Service Date/Time: Tuesday, May 03, 2016 11:33 - CONCLUSION: 1. No malignancy or other acute abnormality seen within the abdomen or pelvis. 2. Diverticulosis of the colon without acute inflammatory changes. 3. Atherosclerotic aorta. No aneurysm. John Mcdonnell MD Neck CT 05/01/16 0000 Signed Impressions: Service Date/Time: April 13:51 - CONCLUSION: 1. Large mass involving the larynx measuring 3.5 x 2.0 cm causing significant compromise to the airway. No adenopathy observed. Malignancy is felt most likely. 2. Severe emphysematous changes. 3. Areas of probable scarring involving the right lung apex. This is nodular in appearance in one area that is partially visualized. I suggest a CT of the thorax to further evaluate. Fabian Blackwood Jr., MD Objective Remarks General: No acute distress. HEENT: Trach in place. Heart: Regular rate and rhythm. No murmur. Lungs: Clear to auscultation bilaterally. No wheezes, rales, or rhonchi. Breathing is nonlabored. Abdomen: Soft, nontender, nondistended. PEG tube in place - C/D/I. Extremities: No lower extremity edema. Neuro: No gross deficits. Psych: Mood and affect appropriate. Procedures 05/05/16 Laryngeal mass biopsy 05/05/16 tracheostomy Medications and IVs Current Medications Medications (Trade) Dose Ordered Sig/Darryl Route Start Time Stop Time Status Last Admin (NS Flush) 2 ml UNSCH PRN FLUSH 05/01/16 15:15 05/21/16 13:19 (NS Flush) 2 ml BID FLUSH 05/01/16 21:00 05/30/16 09:00 (Zofran Inj) 4 mg Q6H PRN IVP 05/01/16 15:15 05/29/16 13:46 (Reglan Inj) 5 mg Q8H PRN IV PUSH 05/07/16 22:15 05/07/16 22:12 (Colace) 100 mg TID PO 05/08/16 09:00 05/30/16 12:38 (Habitrol 7 Mg Patch.24 Hr) 1 patch DAILY TD 05/09/16 16:00 05/30/16 09:12 Miscellaneous Information 1 HS TD 05/09/16 21:00 05/29/16 20:23 (Robitussin Dm 200-20 Mg/10 ml Liq) 10 ml Q6H PRN PO 05/11/16 17:00 05/13/16 04:13 (Mucinex Er) 600 mg BID PO 05/11/16 21:30 05/30/16 09:12 (Tessalon) 200 mg TID PRN PO 05/11/16 21:30 05/14/16 20:39 (Tylenol) 650 mg Q6HR PRN PO 05/11/16 21:30 05/17/16 13:06 (Protonix) 40 mg DAILY PO 05/12/16 09:00 05/30/16 09:12 (Lovenox Inj) 40 mg Q24H SQ 05/12/16 06:00 05/30/16 05:32 (Tylenol) 650 mg Q6H PRN PO 05/13/16 11:15 (Morphine Inj) 4 mg Q3H PRN IV 05/13/16 11:15 05/25/16 05:23 (Narcan Inj) 0.4 mg UNSCH PRN IV 05/13/16 11:15 (Oramorph Sr) 15 mg Q12HR PO 05/25/16 21:00 05/30/16 09:12 (Percocet 5-325 Mg) 1 tab Q4H PRN PO 05/27/16 13:15 (Percocet 10-325 Mg) 1 tab Q4H PRN PO 05/27/16 13:15 05/30/16 12:40 Furosemide 40 mg 40 mg Q7D IV PUSH 05/27/16 12:00 06/17/16 12:59 05/27/16 12:13 (Decadron Inj/NS Inj) 52.5 ml @ 210 mls/hr Q7D IV 05/27/16 12:00 06/17/16 12:14 05/27/16 12:12 Mannitol 12.5 gm 12.5 gm Q7D IV 05/27/16 12:30 06/17/16 13:31 05/27/16 12:30 (Platinol Inj/NS Inj) 225 ml @ 225 mls/hr Q7D IV 05/27/16 13:00 06/17/16 13:59 05/27/16 14:43 Granisetron HCl 1 mg 1 mg Q7D IV 05/27/16 12:00 06/17/16 12:01 05/27/16 12:12 Potassium Chloride 10 meq/ Sodium Chloride 505 ml @ 500 mls/hr Q1H1M IV 06/03/16 12:00 06/03/16 13:00 Potassium Chloride 10 meq/ Dextrose/Sodium Chloride 505 ml @ 500 mls/hr Q1H1M IV 06/03/16 13:00 06/03/16 14:00 Potassium Chloride 10 meq/ Magnesium Sulfate 8 meq/Dextrose/ Sodium Chloride 1,007 ml @ 500 mls/hr Q2H1M IV 06/03/16 14:00 06/03/16 16:00 Potassium Chloride 10 meq/ Sodium Chloride 505 ml @ 500 mls/hr Q1H1M IV 06/10/16 12:00 06/10/16 13:00 Potassium Chloride 10 meq/ Dextrose/Sodium Chloride 505 ml @ 500 mls/hr Q1H1M IV 06/10/16 13:00 06/10/16 14:00 Potassium Chloride 10 meq/ Magnesium Sulfate 8 meq/Dextrose/ Sodium Chloride 1,007 ml @ 500 mls/hr Q2H1M IV 06/10/16 14:00 06/10/16 16:00 Potassium Chloride 10 meq/ Sodium Chloride 505 ml @ 500 mls/hr Q1H1M IV 06/17/16 12:00 06/17/16 13:00 Potassium Chloride 10 meq/ Dextrose/Sodium Chloride 505 ml @ 500 mls/hr Q1H1M IV 06/17/16 13:00 06/17/16 14:00 (KCl Inj/ Magnesium Sulfate Inj/D5W-1/2 NS 1000 ml Inj) 1,007 ml @ 500 mls/hr Q2H1M IV 06/17/16 14:00 06/17/16 16:00 (Restoril) 15 mg HS PRN PO 05/28/16 21:00 05/29/16 20:23 A/P Problem List: (1) Laryngeal mass ICD Code: J38.7 Status: Acute (2) COPD (chronic obstructive pulmonary disease) ICD Code: J44.9 Status: Chronic (3) Tobacco abuse ICD Code: Z72.0 Status: Chronic (4) Nausea & vomiting ICD Code: R11.2 Status: Resolved (5) Hyponatremia ICD Code: E87.1 Status: Chronic (6) Low grade fever ICD Code: R50.9 Status: Acute (7) Leukocytosis ICD Code: D72.829 Status: Acute Assessment and Plan Laryngeal mass/ Invasive squamous cell carcinoma Oncology, ENT, General Surgery following. Status post biopsy of the mass, status post tracheostomy. PEG tube placed on 05/06/16. - On regular diet as per surgery, speech therapy following. - chemotherapy and radiation per oncology. - follow labs as needed. Hemoptysis The pt endorses small amounts of blood occasionally with sputum production. S/t cancer, trach and radiation. - continue to monitor. CBC stable. COPD Stable at this time. - continue bronchodilators, mucolytics and incentive spirometry. - Strongly recommended to stop smoking. - oxygen as needed. - follow up with pulmonology. HCAP Bilateral base infiltrates. Sputum culture grew Pseudomonas Aeruginosa. - s/p course of antibiotics. Hypotension Well controlled 05/30. - Monitor. PPx: Lovenox. Discharge Planning Awaiting oncology clearance. Problem Qualifiers (1) COPD (chronic obstructive pulmonary disease): Qualified Code: J42 - Chronic bronchitis, unspecified chronic bronchitis type (2) Leukocytosis: Qualified Code: D72.829 - Leukocytosis, unspecified type Isael Murguia DO May 30, 2016 15:18
[2016-05-30] MEDS: REMOVE OLD NICODERM (NICOTINE) PATCH TD SCH (21:00)
[2016-05-30] MEDS: TEMAZEPAM 15 MG CAP PO PRN (21:15)
[2016-05-31] VITALS (7 sets, daily range): BP systolic 106–120; BP diastolic 61–66; PULSE 61–71; RESP 18; TEMP 96.4–98.5; O2SAT 93–98
[2016-05-31] MEDS: ENOXAPARIN SODIUM 40 MG/0.4 ML SYRINGE SQ SCH (05:42)
[2016-05-31] MEDS: oxyCODONE/ACETAMINOPHEN 10 MG/325 MG TAB PO PRN ×3 (05:44→21:23)
[2016-05-31] MEDS: MORPHINE SULFATE 15 MG CONTROLLED RELEASE TAB PO SCH ×2 (09:02→21:23)
[2016-05-31] MEDS: PANTOPRAZOLE SOD 40 MG DELAYED RELEASE TAB PO SCH (09:02)
[2016-05-31] MEDS: guaiFENesin E.R. 600 MG TAB PO SCH ×2 (09:02→21:23)
[2016-05-31] MEDS: DOCUSATE SODIUM 100 MG CAP PO SCH ×3 (09:02→17:19)
[2016-05-31] MEDS: NICOTINE 7 MG/24 HR PATCH TD SCH (09:03)
[2016-05-31] MEDS: SODIUM CHLORIDE 0.9% FLUSH 5 ML FLUSH FLUSH SCH ×2 (09:03→21:23)
--- NOTE | 2016-05-31 10:56 | HHI.PR ---
Subjective Remarks Patient seen and examined this morning. Resting comfortably in bed. Denies acute complaints. Denies pain. Denies any questions or concerns. States he is doing well. Objective Vital Signs Date Time Temp Pulse Resp B/P Pulse Ox O2 Delivery O2 Flow Rate FiO2 05/31/16 08:52 96.4 61 18 109/62 94 05/31/16 04:00 97.2 71 18 112/66 97 05/31/16 00:00 97.3 69 18 106/61 98 05/30/16 21:10 69 16 108/63 96 05/30/16 20:34 96 Trach Collar 28 05/30/16 20:00 97.4 71 19 95/66 95 05/30/16 16:00 98.2 65 18 107/62 97 05/30/16 12:00 97.6 70 18 101/63 98 I/O 05/30/16 05/30/16 05/30/16 05/31/16 05/31/16 05/31/16 07:00 15:00 23:00 07:00 15:00 23:00 Intake Total 240 ml 1200 ml 240 ml 120 ml 240 ml Balance 240 ml 1200 ml 240 ml 120 ml 240 ml Intake Oral 240 ml 1200 ml 240 ml 120 ml 240 ml # Voids 2 3 3 2 # Bowel Movements 1 1 Result Diagram: 05/27/16 0648 05/27/16 0648 Imaging Last Impressions Chest X-Ray 05/10/16 0000 Signed Impressions: Service Date/Time: Tuesday, May 10, 2016 11:23 - CONCLUSION: Atelectasis at the lung bases. No other acute cardiopulmonary disease identified. Suhail Calderon MD Gastrostomy Tube Placement 05/06/16 0000 Signed Impressions: Service Date/Time: Friday, May 06, 2016 13:15 - CONCLUSION: Uncomplicated gastrostomy tube placement as above. Fabian Blackwood Jr., MD Chest CT 05/03/16 0000 Signed Impressions: Service Date/Time: Tuesday, May 03, 2016 11:33 - CONCLUSION: 1. Emphysema and right upper lobe scarring. Scarring is mildly nodular but still most likely benign. Six-month followup noncontrast chest CT recommended. 2. No lymphadenopathy. 3. Coronary artery calcification. John Mcdonnell MD Abdomen/Pelvis CT 05/03/16 0000 Signed Impressions: Service Date/Time: Tuesday, May 03, 2016 11:33 - CONCLUSION: 1. No malignancy or other acute abnormality seen within the abdomen or pelvis. 2. Diverticulosis of the colon without acute inflammatory changes. 3. Atherosclerotic aorta. No aneurysm. John Mcdonnell MD Neck CT 05/01/16 0000 Signed Impressions: Service Date/Time: April 13:51 - CONCLUSION: 1. Large mass involving the larynx measuring 3.5 x 2.0 cm causing significant compromise to the airway. No adenopathy observed. Malignancy is felt most likely. 2. Severe emphysematous changes. 3. Areas of probable scarring involving the right lung apex. This is nodular in appearance in one area that is partially visualized. I suggest a CT of the thorax to further evaluate. Fabian Blackwood Jr., MD Procedures 05/05/16 Laryngeal mass biopsy 05/05/16 tracheostomy Objective Remarks General: No acute distress. HEENT: Trach in place. Heart: Regular rate and rhythm. No murmur. Lungs: Clear to auscultation bilaterally. No wheezes, rales, or rhonchi. Breathing is nonlabored. Abdomen: Soft, nontender, nondistended. PEG tube in place - C/D/I. Extremities: No lower extremity edema. Neuro: No gross deficits. Psych: Mood and affect appropriate. A/P Problem List: (1) Laryngeal mass ICD Code: J38.7 (2) COPD (chronic obstructive pulmonary disease) ICD Code: J44.9 (3) Tobacco abuse ICD Code: Z72.0 (4) Hyponatremia ICD Code: E87.1 (5) Leukocytosis ICD Code: D72.829 (6) Low grade fever ICD Code: R50.9 (7) Nausea & vomiting ICD Code: R11.2 Assessment and Plan A/P Laryngeal mass/ Invasive squamous cell carcinoma Oncology, ENT, General Surgery following. Status post biopsy of the mass, status post tracheostomy. PEG tube placed on 05/06/16. - On regular diet as per surgery, speech therapy following. - chemotherapy and radiation per oncology. - follow labs as needed. Hemoptysis The pt endorses small amounts of blood occasionally with sputum production. S/t cancer, trach and radiation. - continue to monitor. CBC stable. COPD Stable at this time. - continue bronchodilators, mucolytics and incentive spirometry. - Strongly recommended to stop smoking. - oxygen as needed. - follow up with pulmonology. HCAP Bilateral base infiltrates. Sputum culture grew Pseudomonas Aeruginosa. - s/p course of antibiotics. Hypotension Well controlled 05/31. - Monitor. PPx: Lovenox. Discharge Planning Awaiting oncology clearance. Problem Qualifiers (1) COPD (chronic obstructive pulmonary disease): Qualified Code: J42 - Chronic bronchitis, unspecified chronic bronchitis type (2) Leukocytosis: Qualified Code: D72.829 - Leukocytosis, unspecified type Charlene London MD May 31, 2016 10:56
[2016-05-31] MEDS: TEMAZEPAM 15 MG CAP PO PRN (21:26)
[2016-05-31] MEDS: REMOVE OLD NICODERM (NICOTINE) PATCH TD SCH (21:27)
[2016-06-01] VITALS (8 sets, daily range): BP systolic 99–118; BP diastolic 59–68; PULSE 60–69; RESP 16–20; TEMP 96.6–98.6; O2SAT 95–99
[2016-06-01] MEDS: ENOXAPARIN SODIUM 40 MG/0.4 ML SYRINGE SQ SCH (04:32)
[2016-06-01] MEDS: oxyCODONE/ACETAMINOPHEN 10 MG/325 MG TAB PO PRN ×3 (04:33→21:28)
--- NOTE | 2016-06-01 07:35 | HHI.PR ---
Subjective Remarks Patient seen and examined this morning. Resting comfortably in bed. Denies pain. * Complains of a rash on both arms for the last 2 days. States it itches mildly , but this is not too bad. He states he has never had a rash in this area before. He did not notice it before 2 days ago. No other questions or concerns. States he is doing well. Objective Vital Signs Date Time Temp Pulse Resp B/P Pulse Ox O2 Delivery O2 Flow Rate FiO2 06/01/16 04:00 97.3 65 18 110/63 97 06/01/16 00:00 98.6 69 19 99/59 96 05/31/16 20:00 97.5 71 18 119/66 97 05/31/16 16:37 98.5 68 18 120/64 93 05/31/16 15:13 95 21 05/31/16 12:08 97.7 62 18 107/66 96 05/31/16 08:52 96.4 61 18 109/62 94 I/O 05/31/16 05/31/16 05/31/16 06/01/16 06/01/16 06/01/16 07:00 15:00 23:00 07:00 15:00 23:00 Intake Total 120 ml 960 ml 480 ml 240 ml Balance 120 ml 960 ml 480 ml 240 ml Intake Oral 120 ml 960 ml 480 ml 240 ml # Voids 2 3 2 # Bowel Movements 1 Imaging Last Impressions Chest X-Ray 05/10/16 0000 Signed Impressions: Service Date/Time: Tuesday, May 10, 2016 11:23 - CONCLUSION: Atelectasis at the lung bases. No other acute cardiopulmonary disease identified. Suhail Calderon MD Gastrostomy Tube Placement 05/06/16 0000 Signed Impressions: Service Date/Time: Friday, May 06, 2016 13:15 - CONCLUSION: Uncomplicated gastrostomy tube placement as above. Fabian Blackwood Jr., MD Chest CT 05/03/16 0000 Signed Impressions: Service Date/Time: Tuesday, May 03, 2016 11:33 - CONCLUSION: 1. Emphysema and right upper lobe scarring. Scarring is mildly nodular but still most likely benign. Six-month followup noncontrast chest CT recommended. 2. No lymphadenopathy. 3. Coronary artery calcification. John Mcdonnell MD Abdomen/Pelvis CT 05/03/16 0000 Signed Impressions: Service Date/Time: Tuesday, May 03, 2016 11:33 - CONCLUSION: 1. No malignancy or other acute abnormality seen within the abdomen or pelvis. 2. Diverticulosis of the colon without acute inflammatory changes. 3. Atherosclerotic aorta. No aneurysm. John Mcdonnell MD Neck CT 05/01/16 0000 Signed Impressions: Service Date/Time: April 13:51 - CONCLUSION: 1. Large mass involving the larynx measuring 3.5 x 2.0 cm causing significant compromise to the airway. No adenopathy observed. Malignancy is felt most likely. 2. Severe emphysematous changes. 3. Areas of probable scarring involving the right lung apex. This is nodular in appearance in one area that is partially visualized. I suggest a CT of the thorax to further evaluate. Fabian Blackwood Jr., MD Procedures 05/05/16 Laryngeal mass biopsy 05/05/16 tracheostomy Objective Remarks General: No acute distress. HEENT: Trach in place. SKIN: Bilateral erythema extending from the extensor surfaces of elbows up to the shoulders bilaterally Heart: Regular rate and rhythm. No murmur. Lungs: Clear to auscultation bilaterally. No wheezes, rales, or rhonchi. Breathing is nonlabored. Abdomen: Soft, nontender, nondistended. PEG tube in place - C/D/I. Extremities: No lower extremity edema. Neuro: No gross deficits. Psych: Mood and affect appropriate. A/P Problem List: (1) Laryngeal mass ICD Code: J38.7 (2) COPD (chronic obstructive pulmonary disease) ICD Code: J44.9 (3) Tobacco abuse ICD Code: Z72.0 (4) Hyponatremia ICD Code: E87.1 (5) Leukocytosis ICD Code: D72.829 (6) Low grade fever ICD Code: R50.9 (7) Nausea & vomiting ICD Code: R11.2 (8) Skin rash ICD Code: R21 Assessment and Plan A/P Laryngeal mass/ Invasive squamous cell carcinoma Oncology, ENT, General Surgery following. Status post biopsy of the mass, status post tracheostomy. PEG tube placed on 05/06/16. - On regular diet as per surgery, speech therapy following. - chemotherapy and radiation per oncology. - follow labs as needed. Skin Rash Patient states for the last 2 days he's noticed a red rash on both of his arms from his elbow up to his shoulder. Suspect this could be a contact dermatitis, or related to laundry soaps or irritations from hospital linen. Patient has been here over a month, and has not had any issue. Possibly related to radiation and or chemotherapy - Treat with hydrocortisone 2.5% topically twice a day - Seen and discussed with patient's nurse, will continue to monitor Hemoptysis The pt endorses small amounts of blood occasionally with sputum production. S/t cancer, trach and radiation. - continue to monitor. CBC stable. COPD Stable at this time. - continue bronchodilators, mucolytics and incentive spirometry. - Strongly recommended to stop smoking. - oxygen as needed. - follow up with pulmonology. HCAP Bilateral base infiltrates. Sputum culture grew Pseudomonas Aeruginosa. - s/p course of antibiotics. Hypotension Well controlled 05/31. - Monitor. PPx: Lovenox. Discharge Planning Awaiting oncology clearance. Problem Qualifiers (1) COPD (chronic obstructive pulmonary disease): Qualified Code: J42 - Chronic bronchitis, unspecified chronic bronchitis type (2) Leukocytosis: Qualified Code: D72.829 - Leukocytosis, unspecified type Charlene London MD Jun 01, 2016 07:35
[2016-06-01] MEDS: DOCUSATE SODIUM 100 MG CAP PO SCH ×3 (08:22→17:31)
[2016-06-01] MEDS: guaiFENesin E.R. 600 MG TAB PO SCH ×2 (08:22→21:28)
[2016-06-01] MEDS: NICOTINE 7 MG/24 HR PATCH TD SCH (08:22)
[2016-06-01] MEDS: PANTOPRAZOLE SOD 40 MG DELAYED RELEASE TAB PO SCH (08:22)
[2016-06-01] MEDS: MORPHINE SULFATE 15 MG CONTROLLED RELEASE TAB PO SCH ×2 (08:23→21:28)
[2016-06-01] MEDS: SODIUM CHLORIDE 0.9% FLUSH 5 ML FLUSH FLUSH SCH ×2 (08:24→21:35)
[2016-06-01] MEDS: HYDROCORTISONE 2.5% CREAM 30 GM TOPICAL SCH ×2 (12:15→21:29)
[2016-06-01] MEDS: REMOVE OLD NICODERM (NICOTINE) PATCH TD SCH (21:00)
[2016-06-02] VITALS (7 sets, daily range): BP systolic 112–150; BP diastolic 64–96; PULSE 66–81; RESP 16–19; TEMP 96.6–98.6; O2SAT 93–99
[2016-06-02] MEDS: oxyCODONE/ACETAMINOPHEN 10 MG/325 MG TAB PO PRN ×5 (01:51→23:40)
[2016-06-02] MEDS: ENOXAPARIN SODIUM 40 MG/0.4 ML SYRINGE SQ SCH (05:39)
[2016-06-02] MEDS: NICOTINE 7 MG/24 HR PATCH TD SCH (08:20)
[2016-06-02] MEDS: DOCUSATE SODIUM 100 MG CAP PO SCH ×3 (08:26→17:57)
[2016-06-02] MEDS: guaiFENesin E.R. 600 MG TAB PO SCH ×2 (08:27→19:54)
[2016-06-02] MEDS: MORPHINE SULFATE 15 MG CONTROLLED RELEASE TAB PO SCH ×2 (08:27→19:54)
[2016-06-02] MEDS: SODIUM CHLORIDE 0.9% FLUSH 5 ML FLUSH FLUSH SCH ×2 (08:27→19:57)
[2016-06-02] MEDS: PANTOPRAZOLE SOD 40 MG DELAYED RELEASE TAB PO SCH (08:27)
[2016-06-02] MEDS: HYDROCORTISONE 2.5% CREAM 30 GM TOPICAL SCH ×2 (08:28→19:55)
[2016-06-02 09:11] LABS: AUTOMATED NEUTROPHIL # 3.8 TH/MM3 (1.8-7.7); BASOPHIL % 0.7 % (0.0-2.0); EOSINOPHIL # 0.2 TH/MM3 (0-0.4); EOSINOPHIL % 3.8 % (0.0-4.0); HEMATOCRIT 38.2 % (39.0-51.0); HEMO FLAGS DIFF FINAL; LYMPH % 17.7 % (9.0-44.0); MEAN CELL VOLUME 92.3 FL (80.0-100.0); MEAN CORPUSCULAR HEMOGLOBIN 30.4 PG (27.0-34.0); MEAN CORPUSCULAR HGB CONC 32.9 % (32.0-36.0); MONO % 8.5 % (0.0-8.0); NEUT % 69.3 % (16.0-70.0); PLATELET COUNT 260 TH/MM3 (150-450); RED BLOOD COUNT 4.14 MIL/MM3 (4.50-5.90); RED CELL DISTRIBUTION WIDTH 13.7 % (11.6-17.2); WHITE BLOOD COUNT 5.5 TH/MM3 (4.0-11.0)
[2016-06-02 10:08] LABS: ALKALINE PHOSPHATASE 84 U/L (45-117); ALT (GPT) 19 U/L (12-78); ANION GAP 4 MEQ/L (5-15); AST (GOT) 13 U/L (15-37); BICARBONATE 32.8 MEQ/L (21.0-32.0); BLOOD UREA NITROGEN 14 MG/DL (7-18); CHLORIDE 98 MEQ/L (98-107); GLOMERULAR FILTRATION RATE 112 ML/MIN (>89); MAGNESIUM 1.9 MG/DL (1.5-2.5); POTASSIUM 4.1 MEQ/L (3.5-5.1); SODIUM (NA) 135 MEQ/L (136-145); TOTAL BILIRUBIN ADULT 0.4 MG/DL (0.2-1.0)
--- NOTE | 2016-06-02 12:22 | PD.ONC.PN ---
Subjective Subjective Remarks Afebrile overnight. Patient eating well without difficulty. Had radiation this AM without problems. Objective Data Date Time Temp Pulse Resp B/P Pulse Ox O2 Delivery O2 Flow Rate FiO2 06/02/16 08:58 97.7 66 16 116/70 96 06/02/16 08:56 97 Trach Collar 28 06/02/16 04:00 96.6 69 19 139/65 98 06/02/16 00:00 98.5 66 17 112/64 99 06/01/16 20:00 97.8 69 16 116/68 99 06/01/16 17:25 97 Trach Collar 6.00 28 06/01/16 16:00 96.6 68 20 108/65 97 06/02/16 06/02/16 06/02/16 07:00 15:00 23:00 Intake Total 240 ml Balance 240 ml Result Diagram: 06/02/16 0836 06/02/16 0836 Laboratory Results Laboratory Tests Test 06/02/16 08:36 White Blood Count 5.5 TH/MM3 Red Blood Count 4.14 MIL/MM3 Hemoglobin 12.6 GM/DL Hematocrit 38.2 % Mean Corpuscular Volume 92.3 FL Mean Corpuscular Hemoglobin 30.4 PG Mean Corpuscular Hemoglobin 32.9 % Concent Red Cell Distribution Width 13.7 % Platelet Count 260 TH/MM3 Mean Platelet Volume 7.0 FL Neutrophils (%) (Auto) 69.3 % Lymphocytes (%) (Auto) 17.7 % Monocytes (%) (Auto) 8.5 % Eosinophils (%) (Auto) 3.8 % Basophils (%) (Auto) 0.7 % Neutrophils # (Auto) 3.8 TH/MM3 Lymphocytes # (Auto) 1.0 TH/MM3 Monocytes # (Auto) 0.5 TH/MM3 Eosinophils # (Auto) 0.2 TH/MM3 Basophils # (Auto) 0.0 TH/MM3 CBC Comment DIFF FINAL Differential Comment Sodium Level 135 MEQ/L Potassium Level 4.1 MEQ/L Chloride Level 98 MEQ/L Carbon Dioxide Level 32.8 MEQ/L Anion Gap 4 MEQ/L Blood Urea Nitrogen 14 MG/DL Creatinine 0.72 MG/DL Estimat Glomerular Filtration 112 ML/MIN Rate Random Glucose 96 MG/DL Calcium Level 8.7 MG/DL Magnesium Level 1.9 MG/DL Total Bilirubin 0.4 MG/DL Aspartate Amino Transf 13 U/L (AST/SGOT) Alanine Aminotransferase 19 U/L (ALT/SGPT) Alkaline Phosphatase 84 U/L Total Protein 7.1 GM/DL Albumin 3.0 GM/DL Administered Medications Medications (Trade) Dose Ordered Sig/Darryl Route PRN Reason Start Time Stop Time Status Last Admin Dose Admin IV Flush (NS Flush) 2 ml UNSCH PRN FLUSH FLUSH AFTER USING IV ACCESS 05/01/16 15:15 05/21/16 13:19 IV Flush (NS Flush) 2 ml BID FLUSH 05/01/16 21:00 06/02/16 08:27 Ondansetron HCl (Zofran Inj) 4 mg Q6H PRN IVP NAUSEA OR VOMITING 05/01/16 15:15 05/29/16 13:46 Metoclopramide HCl (Reglan Inj) 5 mg Q8H PRN IV PUSH NAUSEA 05/07/16 22:15 05/07/16 22:12 Docusate Sodium (Colace) 100 mg TID PO 05/08/16 09:00 06/02/16 08:26 Nicotine (Habitrol 7 Mg Patch.24 Hr) 1 patch DAILY TD 05/09/16 16:00 06/02/16 08:20 Miscellaneous Information 1 HS TD 05/09/16 21:00 06/01/16 21:00 Guaifenesin/ Dextromethorphan (Robitussin Dm 200-20 Mg/10 ml Liq) 10 ml Q6H PRN PO COUGH 05/11/16 17:00 05/13/16 04:13 Guaifenesin (Mucinex Er) 600 mg BID PO 05/11/16 21:30 06/02/16 08:27 Benzonatate (Tessalon) 200 mg TID PRN PO cough interfering w/rest 05/11/16 21:30 05/14/16 20:39 Acetaminophen (Tylenol) 650 mg Q6HR PRN PO fever > 100.4 05/11/16 21:30 05/17/16 13:06 Pantoprazole Sodium (Protonix) 40 mg DAILY PO 05/12/16 09:00 06/02/16 08:27 Enoxaparin Sodium (Lovenox Inj) 40 mg Q24H SQ 05/12/16 06:00 06/02/16 05:39 Morphine Sulfate (Morphine Inj) 4 mg Q3H PRN IV BREAKTHROUGH PAIN 05/13/16 11:15 05/25/16 05:23 Morphine Sulfate (Oramorph Sr) 15 mg Q12HR PO 05/25/16 21:00 06/02/16 08:27 Oxycodone/ Acetaminophen (Percocet 10-325 Mg) 1 tab Q4H PRN PO PAIN SCALE 6 TO 10 05/27/16 13:15 06/02/16 05:38 Furosemide 40 mg 40 mg Q7D IV PUSH 05/27/16 12:00 06/17/16 12:59 05/27/16 12:13 Dexamethasone Sodium Phosphate/ Sodium Chloride (Decadron Inj/NS Inj) 52.5 ml @ 210 mls/hr Q7D IV 05/27/16 12:00 06/17/16 12:14 05/27/16 12:12 Mannitol 12.5 gm 12.5 gm Q7D IV 05/27/16 12:30 06/17/16 13:31 05/27/16 12:30 Cisplatin/Sodium Chloride (Platinol Inj/NS Inj) 225 ml @ 225 mls/hr Q7D IV 05/27/16 13:00 06/17/16 13:59 05/27/16 14:43 Granisetron HCl (Kytril Inj) 1 mg Q7D IV 05/27/16 12:00 06/17/16 12:01 05/27/16 12:12 Temazepam (Restoril) 15 mg HS PRN PO insomnia 05/28/16 21:00 05/31/16 21:26 Hydrocortisone (Eldecort 2.5% Cream) 1 applic BID TOPICAL 06/01/16 12:15 06/02/16 08:28 Objective Remarks GENERAL: Middle-aged male, upright in bed in nad. SKIN: Warm and dry. HEAD: Normocephalic. EYES: No scleral icterus. No injection or drainage. NECK: Supple, trachea midline. trach in place. CARDIOVASCULAR: Regular rate and rhythm. RESPIRATORY: anterior sebastian clear. occasional rhonchi. on 28% FiO2 via trach collar. GASTROINTESTINAL: Abdomen soft, non-tender, nondistended. G-tube clamped EXTREMITIES: No cyanosis, or edema. MUSCULOSKELETAL: Adequate muscle tone. NEUROLOGICAL: No obvious focal deficit. Awake, alert, and oriented x3. 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 05/20: cisplatin 40 mg/m2 05/27: cisplatin 40 mg/m2 06/03: cisplatin 40 mg/m2 05/21: started XRT--continue Thursday-Thursday for 35 treatments Plan 1. Squamous cell carcinoma: continuing to tolerate M-F XRT + weekly cisplatin. Next Cisplatin is tomorrow. 2. Nutrition: is eating 100% of meals, has not required use of his PEG tube 3. DVT prophylaxis: continue Lovenox for prophylaxis 4. respiratory: consult respiratory for O2 walk test d/w Dr. Bennett, case management Radha Hilario Jun 02, 2016 12:22
--- NOTE | 2016-06-02 14:44 | HHI.PR ---
Subjective Remarks Patient seen this morning around 11:30 AM. Says he is feeling all right. Denies any chest pain or shortness of breath. Positive bowel movement. Objective Vital Signs Date Time Temp Pulse Resp B/P Pulse Ox O2 Delivery O2 Flow Rate FiO2 06/02/16 12:00 97.8 77 16 120/96 97 06/02/16 08:58 97.7 66 16 116/70 96 06/02/16 08:56 97 Trach Collar 28 06/02/16 04:00 96.6 69 19 139/65 98 06/02/16 00:00 98.5 66 17 112/64 99 06/01/16 20:00 97.8 69 16 116/68 99 06/01/16 17:25 97 Trach Collar 6.00 28 06/01/16 16:00 96.6 68 20 108/65 97 I/O 06/01/16 06/01/16 06/01/16 06/02/16 06/02/16 06/02/16 07:00 15:00 23:00 07:00 15:00 23:00 Intake Total 240 ml 720 ml 480 ml 240 ml Balance 240 ml 720 ml 480 ml 240 ml Intake Oral 240 ml 720 ml 480 ml 240 ml # Voids 2 3 3 1 # Bowel Movements 0 1 Result Diagram: 06/02/16 0836 06/02/16 0836 Procedures 05/05/16 Laryngeal mass biopsy 05/05/16 tracheostomy Objective Remarks GENERAL: Patient walking around room off oxygen. Learn oriented 3. SKIN: Warm and dry. HEAD: Normocephalic. EYES: No scleral icterus. No injection or drainage. NECK: Supple, trachea midline. No JVD. trache without any surrounding erythema. CARDIOVASCULAR: Regular rate and rhythm without murmurs, gallops, or rubs. RESPIRATORY: Breath sounds equal bilaterally. No accessory muscle use. GASTROINTESTINAL: Abdomen soft, non-tender, nondistended. MUSCULOSKELETAL: No cyanosis, or edema. BACK: Nontender without obvious deformity. No CVA tenderness. A/P Assessment and Plan //Laryngeal mass/ Invasive squamous cell carcinoma Oncology, ENT, General Surgery following. Status post biopsy of the mass, status post tracheostomy. PEG tube placed on 05/06/16. - On regular diet as per surgery, speech therapy following. - chemotherapy and radiation per oncology. -Labs overall stable. Mild hyponatremia. Follow labs as needed. //Skin Rash Patient states for the last 2 days he's noticed a red rash on both of his arms from his elbow up to his shoulder. Suspect this could be a contact dermatitis, or related to laundry soaps or irritations from hospital linen. Patient has been here over a month, and has not had any issue. Possibly related to radiation and or chemotherapy - Treat with hydrocortisone 2.5% topically twice a day -06/02. Antecubital space, patient says he sleeps with arms bent. Appears to be fungal in nature. Will add topical miconazole. //Hemoptysis The pt endorses small amounts of blood occasionally with sputum production. S/t cancer, trach and radiation. - continue to monitor. CBC stable. //COPD Stable at this time. - continue bronchodilators, mucolytics and incentive spirometry. - Strongly recommended to stop smoking. - oxygen as needed. - follow up with pulmonology as outpatient. //HCAP Bilateral base infiltrates. Sputum culture grew Pseudomonas Aeruginosa. - s/p course of antibiotics. //Hypotension Well controlled 05/31. - Monitor. //PPx: Lovenox. Discharge Planning 06/02. Discussed with oncology. -Patient passed oxygen evaluation. Does not need . sahara at home Discussed with case aide. We'll work on getting patient tracheostomy supplies at home. Davide Bennett MD Jun 02, 2016 14:44
--- NOTE | 2016-06-02 17:17 | HHI.PR ---
Subjective Remarks ALERT NO SOB TRACH OK started therapy Objective Vital Signs Date Time Temp Pulse Resp B/P Pulse Ox O2 Delivery O2 Flow Rate FiO2 06/02/16 12:00 97.8 77 16 120/96 97 06/02/16 08:58 97.7 66 16 116/70 96 06/02/16 08:56 97 Trach Collar 28 06/02/16 04:00 96.6 69 19 139/65 98 06/02/16 00:00 98.5 66 17 112/64 99 06/01/16 20:00 97.8 69 16 116/68 99 06/01/16 17:25 97 Trach Collar 6.00 28 I/O 06/01/16 06/01/16 06/01/16 06/02/16 06/02/16 06/02/16 07:00 15:00 23:00 07:00 15:00 23:00 Intake Total 240 ml 720 ml 480 ml 240 ml Balance 240 ml 720 ml 480 ml 240 ml Intake Oral 240 ml 720 ml 480 ml 240 ml # Voids 2 3 3 1 # Bowel Movements 0 1 Result Diagram: 06/02/16 0836 06/02/16 0836 Procedures 05/05/16 Laryngeal mass biopsy 05/05/16 tracheostomy Objective Remarks GENERAL: SKIN: Warm and dry. HEAD: Atraumatic. Normocephalic. EYES: Pupils equal and round. No scleral icterus. No injection or drainage. ENT: No nasal bleeding or discharge. Mucous membranes pink and moist. NECK: Trachea midline. No JVD. TRACH IN PLACE CARDIOVASCULAR: Regular rate and rhythm. RESPIRATORY: No accessory muscle use. Clear to auscultation. Breath sounds equal bilaterally. GASTROINTESTINAL: Abdomen soft, non-tender, nondistended. Hepatic and splenic margins not palpable. MUSCULOSKELETAL: Extremities without clubbing, cyanosis, or edema. No obvious deformities. NEUROLOGICAL: Awake and alert. No obvious cranial nerve deficits. Motor grossly within normal limits. Five out of 5 muscle strength in the arms and legs. Normal speech. PSYCHIATRIC: Appropriate mood and affect; insight and judgment normal. Assessment and Plan Assessment and Plan LARYNGEAL CA S/P TRACH PLAN PULM TOILET REMOVE TRACHEOSTOMY WHEN POSSIBLE change trach today Kamran Andrew MD Jun 02, 2016 17:17
[2016-06-02] MEDS: REMOVE OLD NICODERM (NICOTINE) PATCH TD SCH (19:56)
[2016-06-02] MEDS: MICONAZOLE NITRATE 2% CREAM 15 GM TOPICAL SCH (21:00)
[2016-06-02] MEDS: TEMAZEPAM 15 MG CAP PO PRN (21:20)
[2016-06-03] VITALS: BP 110/63; PULSE 69; RESP 18; TEMP 97.2; O2SAT 96
[2016-06-03] MEDS: MORPHINE SULFATE 4 MG/ML INJ IV PRN (00:28)
[2016-06-03] MEDS: ENOXAPARIN SODIUM 40 MG/0.4 ML SYRINGE SQ SCH (05:08)
[2016-06-03] MEDS: oxyCODONE/ACETAMINOPHEN 10 MG/325 MG TAB PO PRN ×2 (05:11→16:11)
[2016-06-03 06:53] LABS: AUTOMATED NEUTROPHIL # 3.8 TH/MM3 (1.8-7.7); BASOPHIL % 0.5 % (0.0-2.0); EOSINOPHIL # 0.2 TH/MM3 (0-0.4); EOSINOPHIL % 3.2 % (0.0-4.0); HEMATOCRIT 34.5 % (39.0-51.0); HEMO FLAGS DIFF FINAL; LYMPH % 16.2 % (9.0-44.0); LYMPHOCYTE # 0.9 TH/MM3 (1.0-4.8); MEAN CELL VOLUME 90.3 FL (80.0-100.0); MEAN CORPUSCULAR HEMOGLOBIN 31.7 PG (27.0-34.0); MEAN CORPUSCULAR HGB CONC 35.1 % (32.0-36.0); MONO % 12.4 % (0.0-8.0); NEUT % 67.7 % (16.0-70.0); PLATELET COUNT 255 TH/MM3 (150-450); RED BLOOD COUNT 3.82 MIL/MM3 (4.50-5.90); RED CELL DISTRIBUTION WIDTH 13.7 % (11.6-17.2); WHITE BLOOD COUNT 5.6 TH/MM3 (4.0-11.0)
[2016-06-03 07:12] VITALS: O2SAT 98
[2016-06-03 07:19] LABS: BICARBONATE 27.5 MEQ/L (21.0-32.0); MAGNESIUM 1.9 MG/DL (1.5-2.5); POTASSIUM 4.1 MEQ/L (3.5-5.1)
[2016-06-03 08:00] VITALS: BP 117/75; PULSE 70; RESP 20; TEMP 97.1; O2SAT 97
--- NOTE | 2016-06-03 08:38 | HHI.PR ---
Subjective Remarks ALERT NO SOB TRACH changed started therapy Objective Vital Signs Date Time Temp Pulse Resp B/P Pulse Ox O2 Delivery O2 Flow Rate FiO2 06/03/16 08:00 97.1 70 20 117/75 97 06/03/16 00:00 97.2 69 18 110/63 96 06/02/16 20:00 98.6 76 18 121/70 93 06/02/16 16:00 98.1 81 16 150/86 96 06/02/16 12:00 97.8 77 16 120/96 97 06/02/16 08:58 97.7 66 16 116/70 96 06/02/16 08:56 97 Trach Collar 28 I/O 06/02/16 06/02/16 06/02/16 06/03/16 06/03/16 06/03/16 07:00 15:00 23:00 07:00 15:00 23:00 Intake Total 240 ml 600 ml 600 ml Balance 240 ml 600 ml 600 ml Intake Oral 240 ml 600 ml 600 ml # Voids 1 3 2 # Bowel Movements 1 Result Diagram: 06/03/16 0600 06/03/16 06 Procedures 05/05/16 Laryngeal mass biopsy 05/05/16 tracheostomy Objective Remarks GENERAL: SKIN: Warm and dry. HEAD: Atraumatic. Normocephalic. EYES: Pupils equal and round. No scleral icterus. No injection or drainage. ENT: No nasal bleeding or discharge. Mucous membranes pink and moist. NECK: Trachea midline. No JVD. TRACH IN PLACE CARDIOVASCULAR: Regular rate and rhythm. RESPIRATORY: No accessory muscle use. Clear to auscultation. Breath sounds equal bilaterally. GASTROINTESTINAL: Abdomen soft, non-tender, nondistended. Hepatic and splenic margins not palpable. MUSCULOSKELETAL: Extremities without clubbing, cyanosis, or edema. No obvious deformities. NEUROLOGICAL: Awake and alert. No obvious cranial nerve deficits. Motor grossly within normal limits. Five out of 5 muscle strength in the arms and legs. Normal speech. PSYCHIATRIC: Appropriate mood and affect; insight and judgment normal. Assessment and Plan Assessment and Plan LARYNGEAL CA S/P TRACH PLAN PULM TOILET REMOVE TRACHEOSTOMY WHEN POSSIBLE change trach today Kamran Andrew MD Jun 03, 2016 08:38
--- NOTE | 2016-06-03 08:53 | PD.ONC.PN ---
Subjective Subjective Remarks Mr. Avila denies complaints, he reports tolerating treatment without difficulties. He tells me he has been eating well and his voice continues to improve. He continues to ambulate without assistance. At today's visit the majority of the discussion focused around him expressing his discomfort about possible discharge from the hospital to possibly to assisted living. The patient tells me there is no way he will be able to go back to where he was previously living as his roommates are changed smokers and the living conditions are not conducive to somebody who is on chemoradiotherapy for cancer treatment. He is asking if it is okay for him to stay within the hospital for the remaining 4 weeks of his treatment. Objective Data Date Time Temp Pulse Resp B/P Pulse Ox O2 Delivery O2 Flow Rate FiO2 06/03/16 08:00 97.1 70 20 117/75 97 06/03/16 00:00 97.2 69 18 110/63 96 06/02/16 20:00 98.6 76 18 121/70 93 06/02/16 16:00 98.1 81 16 150/86 96 06/02/16 12:00 97.8 77 16 120/96 97 06/02/16 08:58 97.7 66 16 116/70 96 06/02/16 08:56 97 Trach Collar 28 Result Diagram: 06/03/16 0600 06/03/16 0600 Laboratory Results Laboratory Tests Test 06/03/16 06:00 White Blood Count 5.6 TH/MM3 Red Blood Count 3.82 MIL/MM3 Hemoglobin 12.1 GM/DL Hematocrit 34.5 % Mean Corpuscular Volume 90.3 FL Mean Corpuscular Hemoglobin 31.7 PG Mean Corpuscular Hemoglobin 35.1 % Concent Red Cell Distribution Width 13.7 % Platelet Count 255 TH/MM3 Mean Platelet Volume 7.2 FL Neutrophils (%) (Auto) 67.7 % Lymphocytes (%) (Auto) 16.2 % Monocytes (%) (Auto) 12.4 % Eosinophils (%) (Auto) 3.2 % Basophils (%) (Auto) 0.5 % Neutrophils # (Auto) 3.8 TH/MM3 Lymphocytes # (Auto) 0.9 TH/MM3 Monocytes # (Auto) 0.7 TH/MM3 Eosinophils # (Auto) 0.2 TH/MM3 Basophils # (Auto) 0.0 TH/MM3 CBC Comment DIFF FINAL Differential Comment Sodium Level 135 MEQ/L Potassium Level 4.1 MEQ/L Chloride Level 99 MEQ/L Carbon Dioxide Level 27.5 MEQ/L Anion Gap 9 MEQ/L Blood Urea Nitrogen 12 MG/DL Creatinine 0.56 MG/DL Estimat Glomerular Filtration 149 ML/MIN Rate Random Glucose 83 MG/DL Calcium Level 8.7 MG/DL Phosphorus Level 4.1 MG/DL Magnesium Level 1.9 MG/DL Albumin 2.9 GM/DL Administered Medications Medications (Trade) Dose Ordered Sig/Darryl Route PRN Reason Start Time Stop Time Status Last Admin Dose Admin IV Flush (NS Flush) 2 ml UNSCH PRN FLUSH FLUSH AFTER USING IV ACCESS 05/01/16 15:15 05/21/16 13:19 IV Flush (NS Flush) 2 ml BID FLUSH 05/01/16 21:00 06/02/16 19:57 Ondansetron HCl (Zofran Inj) 4 mg Q6H PRN IVP NAUSEA OR VOMITING 05/01/16 15:15 05/29/16 13:46 Metoclopramide HCl (Reglan Inj) 5 mg Q8H PRN IV PUSH NAUSEA 05/07/16 22:15 05/07/16 22:12 Docusate Sodium (Colace) 100 mg TID PO 05/08/16 09:00 06/02/16 17:57 Nicotine (Habitrol 7 Mg Patch.24 Hr) 1 patch DAILY TD 05/09/16 16:00 06/02/16 08:20 Miscellaneous Information 1 HS TD 05/09/16 21:00 06/02/16 19:56 Guaifenesin/ Dextromethorphan (Robitussin Dm 200-20 Mg/10 ml Liq) 10 ml Q6H PRN PO COUGH 05/11/16 17:00 05/13/16 04:13 Guaifenesin (Mucinex Er) 600 mg BID PO 05/11/16 21:30 06/02/16 19:54 Benzonatate (Tessalon) 200 mg TID PRN PO cough interfering w/rest 05/11/16 21:30 05/14/16 20:39 Acetaminophen (Tylenol) 650 mg Q6HR PRN PO fever > 100.4 05/11/16 21:30 05/17/16 13:06 Pantoprazole Sodium (Protonix) 40 mg DAILY PO 05/12/16 09:00 06/02/16 08:27 Enoxaparin Sodium (Lovenox Inj) 40 mg Q24H SQ 05/12/16 06:00 06/03/16 05:08 Morphine Sulfate (Morphine Inj) 4 mg Q3H PRN IV BREAKTHROUGH PAIN 05/13/16 11:15 06/03/16 00:28 Morphine Sulfate (Oramorph Sr) 15 mg Q12HR PO 05/25/16 21:00 06/02/16 19:54 Oxycodone/ Acetaminophen (Percocet 10-325 Mg) 1 tab Q4H PRN PO PAIN SCALE 6 TO 10 05/27/16 13:15 06/03/16 05:11 Furosemide 40 mg 40 mg Q7D IV PUSH 05/27/16 12:00 06/17/16 12:59 05/27/16 12:13 Dexamethasone Sodium Phosphate/ Sodium Chloride (Decadron Inj/NS Inj) 52.5 ml @ 210 mls/hr Q7D IV 05/27/16 12:00 06/17/16 12:14 05/27/16 12:12 Mannitol 12.5 gm 12.5 gm Q7D IV 05/27/16 12:30 06/17/16 13:31 05/27/16 12:30 Cisplatin/Sodium Chloride (Platinol Inj/NS Inj) 225 ml @ 225 mls/hr Q7D IV 05/27/16 13:00 06/17/16 13:59 05/27/16 14:43 Granisetron HCl (Kytril Inj) 1 mg Q7D IV 05/27/16 12:00 06/17/16 12:01 05/27/16 12:12 Temazepam (Restoril) 15 mg HS PRN PO insomnia 05/28/16 21:00 06/02/16 21:20 Hydrocortisone (Eldecort 2.5% Cream) 1 applic BID TOPICAL 06/01/16 12:15 06/02/16 19:55 Objective Remarks GENERAL: Middle-aged male, sitting up in bed, interval placement of tracheostomy. He sitting up in bed, coughing frequently, producing copious amounts of thick yellow phlegm. SKIN: Warm and dry. HEAD: Normocephalic. EYES: No scleral icterus. No injection or drainage. NECK: Supple, trachea midline. No JVD or lymphadenopathy. LYMPHATIC: No adenopathy. CARDIOVASCULAR: Regular rate and rhythm without murmurs. RESPIRATORY: Prolonged expiratory phase, scattered rhonchi. GASTROINTESTINAL: Abdomen soft, non-tender, nondistended. Feeding tube placement. EXTREMITIES: No cyanosis, or edema. MUSCULOSKELETAL: Adequate muscle tone. NEUROLOGICAL: No obvious focal deficit. Awake, alert, and oriented x3. PSYCHIATRIC: Appropriate mood and affect; insight and judgment normal. 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 05/20: cisplatin 40 mg/m2 05/27: cisplatin 40 mg/m2 06/03: cisplatin 40 mg/m2 05/21: started XRT--continue Thursday-Thursday for 35 treatments Plan 1. Squamous cell carcinoma: continuing to tolerate M-F XRT + weekly cisplatin. Cisplatin dosed on 06/03/2016, labs including renal function and chemistries were reviewed. 2. Nutrition: is eating 100% of meals, has not required use of his PEG tube 3. DVT prophylaxis: continue Lovenox for prophylaxis 4. respiratory: consult respiratory for O2 walk test Disposition: 1 assays disposition for discharge has been arranged he is clear from an oncologic standpoint for discharge. This treatment may be resumed as an outpatient once a safe discharge disposition is established. He will require assistance with transportation to and from the assisted living facility to radiation and chemotherapy. Urban Lofton MD Jun 03, 2016 08:53
[2016-06-03] MEDS: MICONAZOLE NITRATE 2% CREAM 15 GM TOPICAL SCH ×2 (09:00→20:39)
[2016-06-03] MEDS: guaiFENesin E.R. 600 MG TAB PO SCH ×2 (09:12→20:41)
[2016-06-03] MEDS: MORPHINE SULFATE 15 MG CONTROLLED RELEASE TAB PO SCH ×2 (09:12→20:41)
[2016-06-03] MEDS: DOCUSATE SODIUM 100 MG CAP PO SCH ×3 (09:12→16:10)
[2016-06-03] MEDS: PANTOPRAZOLE SOD 40 MG DELAYED RELEASE TAB PO SCH (09:13)
[2016-06-03] MEDS: HYDROCORTISONE 2.5% CREAM 30 GM TOPICAL SCH ×2 (09:13→20:42)
[2016-06-03] MEDS: NICOTINE 7 MG/24 HR PATCH TD SCH (09:13)
[2016-06-03] MEDS: SODIUM CHLORIDE 0.9% FLUSH 5 ML FLUSH FLUSH SCH ×2 (09:14→20:39)
[2016-06-03] MEDS ORDERED: OXYC1TAB63 PO (09:43)
[2016-06-03] MEDS ORDERED: NICO7DIS2 TD (09:43)
[2016-06-03] MEDS ORDERED: MORP1TAB24 PO (09:43)
[2016-06-03] MEDS ORDERED: DOCU1CAP39 PO (09:43)
[2016-06-03] MEDS ORDERED: PANT40TA3 PO (09:43)
[2016-06-03] MEDS ORDERED: MICO1POW14 TOPICAL (09:43)
[2016-06-03 12:00] VITALS: BP 126/87; PULSE 74; RESP 18; TEMP 98.9; O2SAT 96
[2016-06-03] MEDS ORDERED: POTASSIUM CHLORIDE IV SCH ×3 (12:00→14:00)
[2016-06-03] MEDS ORDERED: SODIUM CHLORID 0.9% IV SCH (12:00)
[2016-06-03] MEDS ORDERED: NACL 0.45% IV SCH (13:00)
[2016-06-03] MEDS ORDERED: DEXT 5% IV SCH (13:00)
[2016-06-03] MEDS: DEXAMETHASONE INJ 10 MG in SODIUM CHLORIDE 0.9% INJ 50 ML IV SCH (13:40)
[2016-06-03] MEDS: FUROSEMIDE 40 MG/4 ML VIAL IV PUSH SCH (13:42)
[2016-06-03] MEDS: GRANISETRON HCL 1 MG/ML VIAL IV SCH (13:43)
[2016-06-03] MEDS ORDERED: [UNRECOGNIZED DRUG - OTHER] IV SCH (14:00)
[2016-06-03] MEDS ORDERED: MAGNESIUM SULFATE IV SCH (14:00)
[2016-06-03] MEDS: MANNITOL 12.5 GM/50 ML VIAL IV SCH (14:16)
[2016-06-03] MEDS: SODIUM CHLORIDE 0.9% IV SCH (14:36)
[2016-06-03] MEDS: CISPLATIN IV SCH (14:36)
[2016-06-03 16:00] VITALS: BP 115/71; PULSE 72; RESP 20; TEMP 97.3; O2SAT 95
[2016-06-03 20:00] VITALS: BP 129/95; PULSE 95; RESP 18; TEMP 98.2; O2SAT 95
[2016-06-03] MEDS: REMOVE OLD NICODERM (NICOTINE) PATCH TD SCH (20:45)
[2016-06-03] MEDS: TEMAZEPAM 15 MG CAP PO PRN (20:50)
--- NOTE | 2016-06-03 21:58 | HHI.PR ---
Subjective Remarks Patient seen this morning around 10 AM. Says he is feeling all right. Denies any chest pain or shortness of breath. Objective Vital Signs Date Time Temp Pulse Resp B/P Pulse Ox O2 Delivery O2 Flow Rate FiO2 06/03/16 20:00 98.2 95 18 129/95 95 06/03/16 16:00 97.3 72 20 115/71 95 06/03/16 12:00 98.9 74 18 126/87 96 06/03/16 08:00 97.1 70 20 117/75 97 06/03/16 07:12 98 Trach Collar 28 06/03/16 00:00 97.2 69 18 110/63 96 I/O 06/02/16 06/02/16 06/02/16 06/03/16 06/03/16 06/03/16 07:00 15:00 23:00 07:00 15:00 23:00 Intake Total 240 ml 600 ml 600 ml 1365 ml 1348 ml Output Total 1470 ml 1650 ml Balance 240 ml 600 ml 600 ml -105 ml -302 ml Intake Oral 240 ml 600 ml 600 ml 840 ml 840 ml IV Total 525 ml 508 ml Output Urine Total 1470 ml 1650 ml # Voids 1 3 2 3 1 # Bowel Movements 1 Result Diagram: 06/03/16 0600 06/03/16 0600 Procedures 05/05/16 Laryngeal mass biopsy 05/05/16 tracheostomy Objective Remarks GENERAL: Patient sitting up in bed. Off oxygen. alert and oriented 3. SKIN: Warm and dry. HEAD: Normocephalic. EYES: No scleral icterus. No injection or drainage. NECK: Supple, trachea midline. No JVD. trache without any surrounding erythema. CARDIOVASCULAR: Regular rate and rhythm without murmurs, gallops, or rubs. RESPIRATORY: Breath sounds equal bilaterally. No accessory muscle use. GASTROINTESTINAL: Abdomen soft, non-tender, nondistended. MUSCULOSKELETAL: No cyanosis, or edema. BACK: Nontender without obvious deformity. No CVA tenderness. A/P Assessment and Plan //Laryngeal mass/ Invasive squamous cell carcinoma Oncology, ENT, General Surgery following. Status post biopsy of the mass, status post tracheostomy. PEG tube placed on 05/06/16. - On regular diet as per surgery, speech therapy following. - chemotherapy and radiation per oncology. -Labs overall stable. Mild hyponatremia. Follow labs as needed. //Skin Rash Patient states for the last 2 days he's noticed a red rash on both of his arms from his elbow up to his shoulder. Suspect this could be a contact dermatitis, or related to laundry soaps or irritations from hospital linen. Patient has been here over a month, and has not had any issue. Possibly related to radiation and or chemotherapy - Treat with hydrocortisone 2.5% topically twice a day -06/02. Antecubital space, patient says he sleeps with arms bent. Appears to be fungal in nature. Will add topical miconazole. -06/03. Slightly improved. Still waiting for miconazole. //Hemoptysis The pt endorses small amounts of blood occasionally with sputum production. S/t cancer, trach and radiation. - continue to monitor. CBC stable. //COPD Stable at this time. - continue bronchodilators, mucolytics and incentive spirometry. - Strongly recommended to stop smoking. - oxygen as needed. - follow up with pulmonology as outpatient. //HCAP Bilateral base infiltrates. Sputum culture grew Pseudomonas Aeruginosa. - s/p course of antibiotics. //Hypotension Well controlled 05/31. - Monitor. //PPx: Lovenox. Discharge Planning 06/02. Discussed with oncology. -Patient passed oxygen evaluation. Does not need oxygen. Discussed againwith home health care case manager. working on getting patient tracheostomy supplies at home. -patient needs a safe place to stay, and available transportation. Davide Bennett MD Jun 03, 2016 21:58
[2016-06-04] VITALS (7 sets, daily range): BP systolic 104–135; BP diastolic 67–87; PULSE 71–88; RESP 16–22; TEMP 96.1–98.6; O2SAT 94–97
[2016-06-04] MEDS: ENOXAPARIN SODIUM 40 MG/0.4 ML SYRINGE SQ SCH (06:15)
[2016-06-04] MEDS: PANTOPRAZOLE SOD 40 MG DELAYED RELEASE TAB PO SCH (08:51)
[2016-06-04] MEDS: MORPHINE SULFATE 15 MG CONTROLLED RELEASE TAB PO SCH ×2 (08:52→21:08)
[2016-06-04] MEDS: DOCUSATE SODIUM 100 MG CAP PO SCH ×3 (08:52→18:25)
[2016-06-04] MEDS: NICOTINE 7 MG/24 HR PATCH TD SCH (08:52)
[2016-06-04] MEDS: guaiFENesin E.R. 600 MG TAB PO SCH ×2 (08:52→21:08)
[2016-06-04] MEDS: SODIUM CHLORIDE 0.9% FLUSH 5 ML FLUSH FLUSH SCH ×2 (08:52→21:08)
[2016-06-04] MEDS: MICONAZOLE NITRATE 2% CREAM 15 GM TOPICAL SCH ×2 (08:53→21:09)
[2016-06-04] MEDS: HYDROCORTISONE 2.5% CREAM 30 GM TOPICAL SCH ×2 (08:53→21:11)
[2016-06-04] MEDS ORDERED: DOCUSATE SODIUM 50 MG/SENNA 8.6 MG TAB PO ONE (10:30)
--- NOTE | 2016-06-04 16:48 | HHI.PR ---
Subjective Remarks ALERT NO SOB TRACH changed started therapy Objective Vital Signs Date Time Temp Pulse Resp B/P Pulse Ox O2 Delivery O2 Flow Rate FiO2 06/04/16 13:47 96 21 06/04/16 12:00 96.1 76 20 115/75 95 06/04/16 08:00 97.1 88 22 126/76 94 06/04/16 06:28 96.7 81 17 135/81 94 06/04/16 00:00 96.2 80 18 105/87 95 06/03/16 21:41 16 06/03/16 20:00 98.2 95 18 129/95 95 I/O 06/03/16 06/03/16 06/03/16 06/04/16 06/04/16 06/04/16 07:00 15:00 23:00 07:00 15:00 23:00 Intake Total 600 ml 1365 ml 1348 ml 120 ml 360 ml Output Total 1470 ml 1850 ml Balance 600 ml -105 ml -502 ml 120 ml 360 ml Intake Oral 600 ml 840 ml 840 ml 360 ml IV Total 525 ml 508 ml Other 120 ml Output Urine Total 1470 ml 1850 ml # Voids 2 3 1 1 Result Diagram: 06/03/16 0600 06/03/16 0600 Procedures 05/05/16 Laryngeal mass biopsy 05/05/16 tracheostomy Objective Remarks GENERAL: SKIN: Warm and dry. HEAD: Atraumatic. Normocephalic. EYES: Pupils equal and round. No scleral icterus. No injection or drainage. ENT: No nasal bleeding or discharge. Mucous membranes pink and moist. NECK: Trachea midline. No JVD. TRACH IN PLACE CARDIOVASCULAR: Regular rate and rhythm. RESPIRATORY: No accessory muscle use. Clear to auscultation. Breath sounds equal bilaterally. GASTROINTESTINAL: Abdomen soft, non-tender, nondistended. Hepatic and splenic margins not palpable. MUSCULOSKELETAL: Extremities without clubbing, cyanosis, or edema. No obvious deformities. NEUROLOGICAL: Awake and alert. No obvious cranial nerve deficits. Motor grossly within normal limits. Five out of 5 muscle strength in the arms and legs. Normal speech. PSYCHIATRIC: Appropriate mood and affect; insight and judgment normal. Assessment and Plan Assessment and Plan LARYNGEAL CA S/P TRACH PLAN PULM TOILET REMOVE TRACHEOSTOMY WHEN POSSIBLE Kamran Andrew MD Jun 04, 2016 16:48
[2016-06-04] MEDS: oxyCODONE/ACETAMINOPHEN 10 MG/325 MG TAB PO PRN (19:45)
[2016-06-04] MEDS: TEMAZEPAM 15 MG CAP PO PRN (21:08)
[2016-06-04] MEDS: REMOVE OLD NICODERM (NICOTINE) PATCH TD SCH (21:09)
--- NOTE | 2016-06-04 22:11 | HHI.PR ---
Subjective Remarks Patient seen this morning around . Patient says he feels well. Denies any chest pain or shortness of breath. Objective Vital Signs Date Time Temp Pulse Resp B/P Pulse Ox O2 Delivery O2 Flow Rate FiO2 06/04/16 20:45 18 06/04/16 20:00 98.6 79 16 104/67 96 06/04/16 16:00 98.2 71 20 106/69 97 06/04/16 13:47 96 21 06/04/16 12:00 96.1 76 20 115/75 95 06/04/16 08:00 97.1 88 22 126/76 94 06/04/16 06:28 96.7 81 17 135/81 94 06/04/16 00:00 96.2 80 18 105/87 95 I/O 06/03/16 06/03/16 06/03/16 06/04/16 06/04/16 06/04/16 07:00 15:00 23:00 07:00 15:00 23:00 Intake Total 600 ml 1365 ml 1348 ml 120 ml 360 ml Output Total 1470 ml 1850 ml Balance 600 ml -105 ml -502 ml 120 ml 360 ml Intake Oral 600 ml 840 ml 840 ml 360 ml IV Total 525 ml 508 ml Other 120 ml Output Urine Total 1470 ml 1850 ml # Voids 2 3 1 1 Result Diagram: 06/03/16 0606/03/16 06 Procedures 05/05/16 Laryngeal mass biopsy 05/05/16 tracheostomy Objective Remarks GENERAL: Patient sitting up in bed. Off oxygen. alert and oriented 3.exam unchanged from yesterday. SKIN: Warm and dry. HEAD: Normocephalic. EYES: No scleral icterus. No injection or drainage. NECK: Supple, trachea midline. No JVD. trache without any surrounding erythema. CARDIOVASCULAR: Regular rate and rhythm without murmurs, gallops, or rubs. RESPIRATORY: Breath sounds equal bilaterally. No accessory muscle use. GASTROINTESTINAL: Abdomen soft, non-tender, nondistended. MUSCULOSKELETAL: No cyanosis, or edema. BACK: Nontender without obvious deformity. No CVA tenderness. A/P Assessment and Plan //Laryngeal mass/ Invasive squamous cell carcinoma Oncology, ENT, General Surgery following. Status post biopsy of the mass, status post tracheostomy. PEG tube placed on 05/06/16. - On regular diet as per surgery, speech therapy following. - chemotherapy and radiation per oncology. -Labs overall stable. Mild hyponatremia. Follow labs as needed. //Skin Rash Patient states for the last 2 days he's noticed a red rash on both of his arms from his elbow up to his shoulder. Suspect this could be a contact dermatitis, or related to laundry soaps or irritations from hospital linen. Patient has been here over a month, and has not had any issue. Possibly related to radiation and or chemotherapy - Treat with hydrocortisone 2.5% topically twice a day -06/02. Antecubital space, patient says he sleeps with arms bent. Appears to be fungal in nature. Will add topical miconazole. -06/03. Slightly improved. Still waiting for miconazole. =much improved. //Hemoptysis The pt endorses small amounts of blood occasionally with sputum production. S/t cancer, trach and radiation. - continue to monitor. CBC stable. //COPD Stable at this time. - continue bronchodilators, mucolytics and incentive spirometry. - Strongly recommended to stop smoking. - oxygen as needed. - follow up with pulmonology as outpatient. //HCAP Bilateral base infiltrates. Sputum culture grew Pseudomonas Aeruginosa. - s/p course of antibiotics. //Hypotension Well controlled 05/31. - Monitor. //PPx: Lovenox. Discharge Planning -Patient passed oxygen evaluation. Does not need oxygen. respiratory feels that patient would not do well at home without respiratory care. Patient may need SNF. -patient needs a safe place to stay, and available transportation. Davide Bennett MD Jun 04, 2016 22:11
[2016-06-05] VITALS (8 sets, daily range): BP systolic 100–119; BP diastolic 63–86; PULSE 66–74; RESP 16–17; TEMP 96.6–97.2; O2SAT 95–98
[2016-06-05] MEDS: ENOXAPARIN SODIUM 40 MG/0.4 ML SYRINGE SQ SCH (04:21)
[2016-06-05] MEDS: oxyCODONE/ACETAMINOPHEN 5 MG/325 MG TAB PO PRN (04:28)
[2016-06-05] MEDS: guaiFENesin E.R. 600 MG TAB PO SCH ×2 (08:52→20:48)
[2016-06-05] MEDS: PANTOPRAZOLE SOD 40 MG DELAYED RELEASE TAB PO SCH (08:52)
[2016-06-05] MEDS: DOCUSATE SODIUM 100 MG CAP PO SCH ×3 (08:52→16:59)
[2016-06-05] MEDS: NICOTINE 7 MG/24 HR PATCH TD SCH (08:53)
[2016-06-05] MEDS: SODIUM CHLORIDE 0.9% FLUSH 5 ML FLUSH FLUSH SCH ×2 (08:53→20:56)
[2016-06-05] MEDS: MORPHINE SULFATE 15 MG CONTROLLED RELEASE TAB PO SCH ×2 (08:53→20:48)
[2016-06-05] MEDS: HYDROCORTISONE 2.5% CREAM 30 GM TOPICAL SCH ×2 (08:54→20:57)
[2016-06-05] MEDS: MICONAZOLE NITRATE 2% CREAM 15 GM TOPICAL SCH ×2 (08:54→20:57)
--- NOTE | 2016-06-05 12:02 | HHI.PR ---
Subjective Remarks Patient says he feels well. Denies any chest pain or shortness of breath. No nausea or vomiting. Abdominal yesterday. Denies any abdominal pain. He is requesting sennadocusate scheduled to prevent constipation. Objective Vital Signs Date Time Temp Pulse Resp B/P Pulse Ox O2 Delivery O2 Flow Rate FiO2 06/05/16 11:30 96 Trach Collar 5.00 28 06/05/16 08:00 96.7 72 16 111/79 96 06/05/16 05:11 18 06/05/16 04:00 96.6 67 16 100/63 95 06/05/16 00:30 97.0 74 16 119/86 98 06/04/16 22:08 18 06/04/16 20:45 18 06/04/16 20:00 98.6 79 16 104/67 96 06/04/16 16:00 98.2 71 20 106/69 97 06/04/16 13:47 96 21 I/O 06/04/16 06/04/16 06/04/16 06/05/16 06/05/16 06/05/16 07:00 15:00 23:00 07:00 15:00 23:00 Intake Total 120 ml 360 ml 480 ml 240 ml Balance 120 ml 360 ml 480 ml 240 ml Intake Oral 360 ml 480 ml 240 ml Other 120 ml # Voids 1 2 1 # Bowel Movements 1 Result Diagram: 06/03/16 0600 06/03/16 0600 Procedures 05/05/16 Laryngeal mass biopsy 05/05/16 tracheostomy Objective Remarks GENERAL: Patient sitting up in bed. Off oxygen. alert and oriented 3. Appears comfortable. SKIN: Warm and dry. HEAD: Normocephalic. EYES: No scleral icterus. No injection or drainage. NECK: Supple, trachea midline. No JVD. trache without any surrounding erythema. As before CARDIOVASCULAR: Regular rate and rhythm without murmurs, gallops, or rubs. RESPIRATORY: Breath sounds equal bilaterally. No accessory muscle use. GASTROINTESTINAL: Abdomen soft, non-tender, nondistended. MUSCULOSKELETAL: No cyanosis, or edema. BACK: Nontender without obvious deformity. No CVA tenderness. A/P Assessment and Plan //Laryngeal mass/ Invasive squamous cell carcinoma Oncology, ENT, General Surgery following. Status post biopsy of the mass, status post tracheostomy. PEG tube placed on 05/06/16. - On regular diet as per surgery, speech therapy following. - chemotherapy and radiation per oncology. -Labs overall stable. Mild hyponatremia. Follow labs as needed. //Skin Rash Patient states for the last 2 days he's noticed a red rash on both of his arms from his elbow up to his shoulder. Suspect this could be a contact dermatitis, or related to laundry soaps or irritations from hospital linen. Patient has been here over a month, and has not had any issue. Possibly related to radiation and or chemotherapy - Treat with hydrocortisone 2.5% topically twice a day -06/02. Antecubital space, patient says he sleeps with arms bent. Appears to be fungal in nature. Will add topical miconazole. -06/03. Slightly improved. Still waiting for miconazole. =much improved. //Hemoptysis The pt endorses small amounts of blood occasionally with sputum production. S/t cancer, trach and radiation. - continue to monitor. CBC stable. //COPD Stable at this time. - continue bronchodilators, mucolytics and incentive spirometry. - Strongly recommended to stop smoking. - oxygen as needed. - follow up with pulmonology as outpatient. //HCAP Bilateral base infiltrates. Sputum culture grew Pseudomonas Aeruginosa. - s/p course of antibiotics. //Hypotension Well controlled 05/31. - Monitor. //Constipation. Resolved. -06/05. scheduled Adenike-Colace prevention. -Continue to monitor //PPx: Lovenox. Discharge Planning -Patient passed oxygen evaluation. Does not need oxygen. respiratory feels that patient would not do well at home without respiratory care. Patient may need SNF. -patient needs a safe place to stay, and available transportation. Davide Bennett MD Jun 05, 2016 12:02
[2016-06-05] MEDS: DOCUSATE SODIUM 50 MG/SENNA 8.6 MG TAB PO SCH (12:57)
[2016-06-05] MEDS: TEMAZEPAM 15 MG CAP PO PRN (20:48)
[2016-06-05] MEDS: METOCLOPRAMIDE HCL 10 MG/2 ML VIAL IV PUSH PRN (20:56)
[2016-06-05] MEDS: REMOVE OLD NICODERM (NICOTINE) PATCH TD SCH (20:56)
[2016-06-06] VITALS (7 sets, daily range): BP systolic 95–117; BP diastolic 54–68; PULSE 72–77; RESP 16–18; TEMP 96.1–98.4; O2SAT 95–99
[2016-06-06] MEDS: oxyCODONE/ACETAMINOPHEN 10 MG/325 MG TAB PO PRN ×3 (03:36→16:10)
[2016-06-06] MEDS: ENOXAPARIN SODIUM 40 MG/0.4 ML SYRINGE SQ SCH (06:50)
[2016-06-06 07:02] LABS: AUTOMATED NEUTROPHIL # 4.8 TH/MM3 (1.8-7.7); BASOPHIL % 0.6 % (0.0-2.0); EOSINOPHIL # 0.2 TH/MM3 (0-0.4); EOSINOPHIL % 2.5 % (0.0-4.0); HEMATOCRIT 35.7 % (39.0-51.0); HEMO FLAGS DIFF FINAL; LYMPH % 10.8 % (9.0-44.0); LYMPHOCYTE # 0.7 TH/MM3 (1.0-4.8); MEAN CELL VOLUME 90.9 FL (80.0-100.0); MEAN CORPUSCULAR HEMOGLOBIN 30.8 PG (27.0-34.0); MEAN CORPUSCULAR HGB CONC 33.8 % (32.0-36.0); MONO % 12.3 % (0.0-8.0); NEUT % 73.8 % (16.0-70.0); PLATELET COUNT 208 TH/MM3 (150-450); RED BLOOD COUNT 3.93 MIL/MM3 (4.50-5.90); RED CELL DISTRIBUTION WIDTH 14.2 % (11.6-17.2); WHITE BLOOD COUNT 6.5 TH/MM3 (4.0-11.0)
[2016-06-06 07:23] LABS: BICARBONATE 28.2 MEQ/L (21.0-32.0); MAGNESIUM 1.9 MG/DL (1.5-2.5); POTASSIUM 4.4 MEQ/L (3.5-5.1)
[2016-06-06] MEDS: MICONAZOLE NITRATE 2% CREAM 15 GM TOPICAL SCH ×2 (09:00→20:37)
[2016-06-06] MEDS: PANTOPRAZOLE SOD 40 MG DELAYED RELEASE TAB PO SCH (09:33)
[2016-06-06] MEDS: guaiFENesin E.R. 600 MG TAB PO SCH ×2 (09:33→20:31)
[2016-06-06] MEDS: DOCUSATE SODIUM 100 MG CAP PO SCH ×3 (09:33→19:36)
[2016-06-06] MEDS: DOCUSATE SODIUM 50 MG/SENNA 8.6 MG TAB PO SCH (09:34)
[2016-06-06] MEDS: NICOTINE 7 MG/24 HR PATCH TD SCH (09:34)
[2016-06-06] MEDS: SODIUM CHLORIDE 0.9% FLUSH 5 ML FLUSH FLUSH SCH ×2 (09:35→20:35)
[2016-06-06] MEDS: MORPHINE SULFATE 15 MG CONTROLLED RELEASE TAB PO SCH ×2 (09:35→20:31)
[2016-06-06] MEDS: HYDROCORTISONE 2.5% CREAM 30 GM TOPICAL SCH ×2 (09:35→20:37)
--- NOTE | 2016-06-06 14:27 | HHI.PR ---
Subjective Remarks Patient seen this morning prior to radiation. Reports pain is controlled. Denies any chest pain or shortness of breath. Denies any nausea or vomiting. Eating well. Constipation resolved. Objective Vital Signs Date Time Temp Pulse Resp B/P Pulse Ox O2 Delivery O2 Flow Rate FiO2 06/06/16 12:00 97.0 72 16 96/62 99 06/06/16 10:01 98 Trach Collar 21 06/06/16 08:16 98.3 73 18 98/59 95 06/06/16 04:34 18 06/06/16 04:00 97.9 77 17 110/68 95 06/06/16 00:00 97.4 74 17 117/68 96 06/05/16 21:48 18 06/05/16 20:00 97.1 71 17 111/65 95 06/05/16 17:36 97 Trach Collar 6.00 28 06/05/16 16:00 97.2 66 16 110/70 97 I/O 06/05/16 06/05/16 06/05/16 06/06/16 06/06/16 06/06/16 07:00 15:00 23:00 07:00 15:00 23:00 Intake Total 240 ml 1200 ml 240 ml 240 ml Balance 240 ml 1200 ml 240 ml 240 ml Intake Oral 240 ml 1200 ml 240 ml 240 ml # Voids 1 2 2 2 # Bowel Movements 1 Result Diagram: 06/06/16 0612 06/06/16 0612 Procedures 05/05/16 Laryngeal mass biopsy 05/05/16 tracheostomy Objective Remarks GENERAL: Patient sitting up in bed. Off oxygen. alert and oriented 3. Appears comfortable. Exam unchanged from yesterday. SKIN: Warm and dry. HEAD: Normocephalic. EYES: No scleral icterus. No injection or drainage. NECK: Supple, trachea midline. No JVD. trache without any surrounding erythema. CARDIOVASCULAR: Regular rate and rhythm without murmurs, gallops, or rubs. RESPIRATORY: Breath sounds equal bilaterally. No accessory muscle use. GASTROINTESTINAL: Abdomen soft, non-tender, nondistended. MUSCULOSKELETAL: No cyanosis, or edema. BACK: Nontender without obvious deformity. No CVA tenderness. A/P Assessment and Plan 06/06/16. Patient seen and examined. Vital signs stable. No acute changes. Awaiting placement. //Laryngeal mass/ Invasive squamous cell carcinoma Oncology, ENT, General Surgery following. Status post biopsy of the mass, status post tracheostomy. PEG tube placed on 05/06/16. - On regular diet as per surgery, speech therapy following. - chemotherapy and radiation per oncology. -Labs overall stable. Mild hyponatremia. Follow labs as needed. //Skin Rash Patient states for the last 2 days he's noticed a red rash on both of his arms from his elbow up to his shoulder. Suspect this could be a contact dermatitis, or related to laundry soaps or irritations from hospital linen. Patient has been here over a month, and has not had any issue. Possibly related to radiation and or chemotherapy - Treat with hydrocortisone 2.5% topically twice a day -06/02. Antecubital space, patient says he sleeps with arms bent. Appears to be fungal in nature. Will add topical miconazole. -06/03. Slightly improved. Still waiting for miconazole. =much improved. //Hemoptysis The pt endorses small amounts of blood occasionally with sputum production. S/t cancer, trach and radiation. - continue to monitor. CBC stable. //COPD Stable at this time. - continue bronchodilators, mucolytics and incentive spirometry. - Strongly recommended to stop smoking. - oxygen as needed. - follow up with pulmonology as outpatient. //HCAP Bilateral base infiltrates. Sputum culture grew Pseudomonas Aeruginosa. - s/p course of antibiotics. //Hypotension Well controlled 05/31. - Monitor. //Constipation. Resolved. -06/05. scheduled Adenike-Colace prevention. -Continue to monitor //PPx: Lovenox. Discharge Planning -Patient passed oxygen evaluation. Does not need oxygen. respiratory feels that patient would not do well at home without respiratory care. Patient may need SNF. -patient needs a safe place to stay, and available transportation. Davide Bennett MD Jun 06, 2016 14:27
[2016-06-06] MEDS: TEMAZEPAM 15 MG CAP PO PRN (20:35)
[2016-06-06] MEDS: REMOVE OLD NICODERM (NICOTINE) PATCH TD SCH (20:37)
[2016-06-07] VITALS (8 sets, daily range): BP systolic 106–141; BP diastolic 64–79; PULSE 64–77; RESP 16–18; TEMP 96.4–98.1; O2SAT 94–96
[2016-06-07] MEDS: oxyCODONE/ACETAMINOPHEN 10 MG/325 MG TAB PO PRN ×4 (03:09→17:25)
[2016-06-07] MEDS: ENOXAPARIN SODIUM 40 MG/0.4 ML SYRINGE SQ SCH (07:15)
[2016-06-07] MEDS: MICONAZOLE NITRATE 2% CREAM 15 GM TOPICAL SCH ×2 (09:00→20:56)
[2016-06-07] MEDS: HYDROCORTISONE 2.5% CREAM 30 GM TOPICAL SCH ×2 (09:00→20:56)
[2016-06-07] MEDS: NICOTINE 7 MG/24 HR PATCH TD SCH (09:31)
[2016-06-07] MEDS: MORPHINE SULFATE 15 MG CONTROLLED RELEASE TAB PO SCH ×2 (09:33→20:54)
[2016-06-07] MEDS: guaiFENesin E.R. 600 MG TAB PO SCH ×2 (09:33→20:55)
[2016-06-07] MEDS: DOCUSATE SODIUM 100 MG CAP PO SCH ×3 (09:33→17:24)
[2016-06-07] MEDS: DOCUSATE SODIUM 50 MG/SENNA 8.6 MG TAB PO SCH (09:33)
[2016-06-07] MEDS: SODIUM CHLORIDE 0.9% FLUSH 5 ML FLUSH FLUSH SCH ×2 (09:34→20:55)
[2016-06-07] MEDS: PANTOPRAZOLE SOD 40 MG DELAYED RELEASE TAB PO SCH (09:34)
[2016-06-07] MEDS: TEMAZEPAM 15 MG CAP PO PRN (20:54)
[2016-06-07] MEDS: REMOVE OLD NICODERM (NICOTINE) PATCH TD SCH (20:55)
[2016-06-08] VITALS: BP 116/73; PULSE 72; RESP 18; TEMP 97.3; O2SAT 99
[2016-06-08] MEDS: oxyCODONE/ACETAMINOPHEN 10 MG/325 MG TAB PO PRN ×3 (02:40→18:16)
[2016-06-08 04:00] VITALS: BP 113/69; PULSE 68; RESP 19; TEMP 97.5; O2SAT 96
--- NOTE | 2016-06-08 05:41 | HHI.PR ---
Subjective Remarks Late entry. Date of service 06/07/16. Patient seen the morning of 06/07/16. Patient says he feels well. Denies any chest pain or shortness of breath. Denies any nausea or vomiting. Denies constipation. Objective Vital Signs Date Time Temp Pulse Resp B/P Pulse Ox O2 Delivery O2 Flow Rate FiO2 06/08/16 04:00 97.5 68 19 113/69 96 06/08/16 03:53 19 06/08/16 00:00 97.3 72 18 116/73 99 06/07/16 22:30 20 06/07/16 21:00 95 21 06/07/16 20:00 96.4 72 18 126/79 96 06/07/16 16:00 98.1 64 16 108/64 94 06/07/16 12:00 96.5 77 16 134/78 95 06/07/16 10:18 96 Trach Collar 28 06/07/16 08:00 97.8 77 16 110/71 94 I/O 06/07/16 06/07/16 06/07/16 06/08/16 06/08/16 06/08/16 07:00 15:00 23:00 07:00 15:00 23:00 Intake Total 120 ml 480 ml Balance 120 ml 480 ml Intake Oral 120 ml 480 ml # Voids 1 2 # Bowel Movements 0 Result Diagram: 06/06/16 0612 06/06/16 0612 Procedures 05/05/16 Laryngeal mass biopsy 05/05/16 tracheostomy Objective Remarks GENERAL: Patient sitting up in bed. Off oxygen. alert and oriented 3. Appears comfortable. Exam again unchanged SKIN: Warm and dry. HEAD: Normocephalic. EYES: No scleral icterus. No injection or drainage. NECK: Supple, trachea midline. No JVD. trache without any surrounding erythema. CARDIOVASCULAR: Regular rate and rhythm without murmurs, gallops, or rubs. RESPIRATORY: Breath sounds equal bilaterally. No accessory muscle use. GASTROINTESTINAL: Abdomen soft, non-tender, nondistended. MUSCULOSKELETAL: No cyanosis, or edema. BACK: Nontender without obvious deformity. No CVA tenderness. A/P Assessment and Plan 06/07/16. Patient seen and examined. Vital signs stable. again, No acute changes. Awaiting placement.appreciate case management assistance. //Laryngeal mass/ Invasive squamous cell carcinoma Oncology, ENT, General Surgery following. Status post biopsy of the mass, status post tracheostomy. PEG tube placed on 05/06/16. - On regular diet as per surgery, speech therapy following. - chemotherapy and radiation per oncology. -Labs overall stable. Mild hyponatremia. Follow labs as needed. //Skin Rash Patient states for the last 2 days he's noticed a red rash on both of his arms from his elbow up to his shoulder. Suspect this could be a contact dermatitis, or related to laundry soaps or irritations from hospital linen. Patient has been here over a month, and has not had any issue. Possibly related to radiation and or chemotherapy - Treat with hydrocortisone 2.5% topically twice a day -06/02. Antecubital space, patient says he sleeps with arms bent. Appears to be fungal in nature. Will add topical miconazole. -06/03. Slightly improved. Still waiting for miconazole. =much improved. //Hemoptysis The pt endorses small amounts of blood occasionally with sputum production. S/t cancer, trach and radiation. - continue to monitor. CBC stable. //COPD Stable at this time. - continue bronchodilators, mucolytics and incentive spirometry. - Strongly recommended to stop smoking. - oxygen as needed. - follow up with pulmonology as outpatient. //HCAP Bilateral base infiltrates. Sputum culture grew Pseudomonas Aeruginosa. - s/p course of antibiotics. //Hypotension Well controlled 05/31. - Monitor. //Constipation. Resolved. -06/05. scheduled Adenike-Colace prevention. -Continue to monitor //PPx: Lovenox. Discharge Planning -Patient passed oxygen evaluation. Does not need oxygen. respiratory feels that patient would not do well at home without respiratory care. Patient may need SNF. -patient needs a safe place to stay, and available transportation. Davide Bennett MD Jun 08, 2016 05:41
[2016-06-08] MEDS: ENOXAPARIN SODIUM 40 MG/0.4 ML SYRINGE SQ SCH (06:00)
[2016-06-08 07:50] VITALS: BP 108/73; PULSE 68; RESP 16; TEMP 98.9; O2SAT 96
[2016-06-08 07:56] LABS: AUTOMATED NEUTROPHIL # 4.6 TH/MM3 (1.8-7.7); BASOPHIL % 0.5 % (0.0-2.0); EOSINOPHIL # 0.2 TH/MM3 (0-0.4); EOSINOPHIL % 3.1 % (0.0-4.0); HEMATOCRIT 35.5 % (39.0-51.0); HEMO FLAGS DIFF FINAL; LYMPH % 12.5 % (9.0-44.0); LYMPHOCYTE # 0.8 TH/MM3 (1.0-4.8); MEAN CORPUSCULAR HEMOGLOBIN 30.7 PG (27.0-34.0); MEAN CORPUSCULAR HGB CONC 33.7 % (32.0-36.0); MONO % 8.7 % (0.0-8.0); NEUT % 75.2 % (16.0-70.0); PLATELET COUNT 191 TH/MM3 (150-450); RED CELL DISTRIBUTION WIDTH 13.8 % (11.6-17.2); WHITE BLOOD COUNT 6.2 TH/MM3 (4.0-11.0)
[2016-06-08 08:02] LABS: BICARBONATE 27.8 MEQ/L (21.0-32.0); POTASSIUM 4.3 MEQ/L (3.5-5.1)
[2016-06-08] MEDS: SODIUM CHLORIDE 0.9% FLUSH 5 ML FLUSH FLUSH SCH ×2 (09:00→19:53)
[2016-06-08] MEDS: MICONAZOLE NITRATE 2% CREAM 15 GM TOPICAL SCH ×2 (09:00→19:53)
[2016-06-08] MEDS: DOCUSATE SODIUM 50 MG/SENNA 8.6 MG TAB PO SCH (09:22)
[2016-06-08] MEDS: PANTOPRAZOLE SOD 40 MG DELAYED RELEASE TAB PO SCH (09:22)
[2016-06-08] MEDS: DOCUSATE SODIUM 100 MG CAP PO SCH ×3 (09:23→18:16)
[2016-06-08] MEDS: guaiFENesin E.R. 600 MG TAB PO SCH ×2 (09:23→19:51)
[2016-06-08] MEDS: MORPHINE SULFATE 15 MG CONTROLLED RELEASE TAB PO SCH ×2 (09:23→19:52)
[2016-06-08] MEDS: NICOTINE 7 MG/24 HR PATCH TD SCH (09:24)
[2016-06-08] MEDS: HYDROCORTISONE 2.5% CREAM 30 GM TOPICAL SCH ×2 (09:24→19:53)
[2016-06-08 12:00] VITALS: BP 121/72; PULSE 73; RESP 18; TEMP 98.7; O2SAT 95
[2016-06-08 16:00] VITALS: BP_SYST 107; BP_SYST 131; BP_DIAS 60; BP_DIAS 84; PULSE 68; PULSE 77; RESP 16; TEMP 97.1; TEMP 99.1; O2SAT 96; O2SAT 99
[2016-06-08] MEDS: REMOVE OLD NICODERM (NICOTINE) PATCH TD SCH (19:52)
[2016-06-08] MEDS: TEMAZEPAM 15 MG CAP PO PRN (19:58)
[2016-06-08 20:00] VITALS: BP 121/86; PULSE 90; RESP 19; TEMP 97.9; O2SAT 95
--- NOTE | 2016-06-08 23:49 | HHI.PR ---
Subjective Remarks patient seen this morning around 11 AM. Says he is feeling comfortable. Denies any chest pain or shortness of breath. Denies any nausea or vomiting. Objective Vital Signs Date Time Temp Pulse Resp B/P Pulse Ox O2 Delivery O2 Flow Rate FiO2 06/08/16 20:00 97.9 90 19 121/86 95 06/08/16 16:00 97.1 68 16 107/60 96 06/08/16 12:00 98.7 73 18 121/72 95 06/08/16 12:00 95 21 06/08/16 07:50 98.9 68 16 108/73 96 06/08/16 04:00 97.5 68 19 113/69 96 06/08/16 03:53 19 06/08/16 00:00 97.3 72 18 116/73 99 I/O 06/07/16 06/07/16 06/07/16 06/08/16 06/08/16 06/08/16 07:00 15:00 23:00 07:00 15:00 23:00 Intake Total 120 ml 480 ml 120 ml 1080 ml Balance 120 ml 480 ml 120 ml 1080 ml Intake Oral 120 ml 480 ml 120 ml 1080 ml # Voids 1 2 1 4 # Bowel Movements 0 0 1 Result Diagram: 06/08/16 0708 06/08/16 0708 Procedures 05/05/16 Laryngeal mass biopsy 05/05/16 tracheostomy Objective Remarks GENERAL: Patient sitting up in bed. Off oxygen. alert and oriented 3. Appears comfortable. Exam unchanged from yesterday. SKIN: Warm and dry.rash on upper anterior armsfrom yesterday is improved. HEAD: Normocephalic. EYES: No scleral icterus. No injection or drainage. NECK: Supple, trachea midline. No JVD. trache without any surrounding erythema. CARDIOVASCULAR: Regular rate and rhythm without murmurs, gallops, or rubs. RESPIRATORY: Breath sounds equal bilaterally. No accessory muscle use. GASTROINTESTINAL: Abdomen soft, non-tender, nondistended. MUSCULOSKELETAL: No cyanosis, or edema. BACK: Nontender without obvious deformity. No CVA tenderness. A/P Assessment and Plan 06/08/16. Patient seen and examined. Vital signs stable. again, No acute changes. Awaiting placement.appreciate case management assistance.continue to monitor. //Laryngeal mass/ Invasive squamous cell carcinoma Oncology, ENT, General Surgery following. Status post biopsy of the mass, status post tracheostomy. PEG tube placed on 05/06/16. - On regular diet as per surgery, speech therapy following. - chemotherapy and radiation per oncology. -Labs overall stable. Mild hyponatremia. Follow labs as needed. //Skin Rash Patient states for the last 2 days he's noticed a red rash on both of his arms from his elbow up to his shoulder. Suspect this could be a contact dermatitis, or related to laundry soaps or irritations from hospital linen. Patient has been here over a month, and has not had any issue. Possibly related to radiation and or chemotherapy - Treat with hydrocortisone 2.5% topically twice a day -06/02. Antecubital space, patient says he sleeps with arms bent. Appears to be fungal in nature. Will add topical miconazole. -06/03. Slightly improved. Still waiting for miconazole. =much improved. //Hemoptysis The pt endorses small amounts of blood occasionally with sputum production. S/t cancer, trach and radiation. - continue to monitor. CBC stable. //COPD Stable at this time. - continue bronchodilators, mucolytics and incentive spirometry. - Strongly recommended to stop smoking. - oxygen as needed. - follow up with pulmonology as outpatient. //HCAP Bilateral base infiltrates. Sputum culture grew Pseudomonas Aeruginosa. - s/p course of antibiotics. //Hypotension Well controlled 05/31. - Monitor. //Constipation. Resolved. -06/05. scheduled Adenike-Colace prevention. -Continue to monitor //PPx: Lovenox. Discharge Planning -Patient passed oxygen evaluation. Does not need oxygen. respiratory feels that patient would not do well at home without respiratory care. Patient may need SNF. -patient needs a safe place to stay, and available transportation. Davide Bennett MD Jun 08, 2016 23:49
[2016-06-09] VITALS (7 sets, daily range): BP systolic 88–122; BP diastolic 59–77; PULSE 69–83; RESP 16–18; TEMP 96.9–97.5; O2SAT 94–98
[2016-06-09] MEDS: ENOXAPARIN SODIUM 40 MG/0.4 ML SYRINGE SQ SCH (04:11)
[2016-06-09] MEDS: oxyCODONE/ACETAMINOPHEN 10 MG/325 MG TAB PO PRN ×3 (04:12→22:35)
[2016-06-09] MEDS: SODIUM CHLORIDE 0.9% FLUSH 5 ML FLUSH FLUSH SCH ×2 (09:00→21:00)
[2016-06-09] MEDS: MICONAZOLE NITRATE 2% CREAM 15 GM TOPICAL SCH ×2 (09:00→21:00)
[2016-06-09] MEDS: PANTOPRAZOLE SOD 40 MG DELAYED RELEASE TAB PO SCH (09:01)
[2016-06-09] MEDS: DOCUSATE SODIUM 50 MG/SENNA 8.6 MG TAB PO SCH (09:01)
[2016-06-09] MEDS: DOCUSATE SODIUM 100 MG CAP PO SCH ×3 (09:01→17:29)
[2016-06-09] MEDS: guaiFENesin E.R. 600 MG TAB PO SCH ×2 (09:01→21:58)
[2016-06-09] MEDS: HYDROCORTISONE 2.5% CREAM 30 GM TOPICAL SCH ×2 (09:02→21:59)
[2016-06-09] MEDS: MORPHINE SULFATE 15 MG CONTROLLED RELEASE TAB PO SCH ×2 (09:02→21:58)
[2016-06-09] MEDS: NICOTINE 7 MG/24 HR PATCH TD SCH (09:02)
--- NOTE | 2016-06-09 15:46 | HHI.PR ---
Subjective Remarks ALERT NO SOB TRACH changed started therapy Objective Vital Signs Date Time Temp Pulse Resp B/P Pulse Ox O2 Delivery O2 Flow Rate FiO2 06/09/16 12:00 97.5 69 18 109/66 96 06/09/16 08:00 97.1 70 18 96/65 95 06/09/16 04:00 97.5 70 18 110/77 98 06/09/16 00:00 97.1 71 18 88/68 94 06/08/16 20:00 97.9 90 19 121/86 95 06/08/16 16:00 97.1 68 16 107/60 96 I/O 06/08/16 06/08/16 06/08/16 06/09/16 06/09/16 06/09/16 07:00 15:00 23:00 07:00 15:00 23:00 Intake Total 120 ml 1080 ml 480 ml 120 ml Balance 120 ml 1080 ml 480 ml 120 ml Intake Oral 120 ml 1080 ml 480 ml 120 ml # Voids 1 4 2 1 # Bowel Movements 0 1 0 0 Result Diagram: 06/08/16 0708 06/08/16 0708 Procedures 05/05/16 Laryngeal mass biopsy 05/05/16 tracheostomy Objective Remarks GENERAL: SKIN: Warm and dry. HEAD: Atraumatic. Normocephalic. EYES: Pupils equal and round. No scleral icterus. No injection or drainage. ENT: No nasal bleeding or discharge. Mucous membranes pink and moist. NECK: Trachea midline. No JVD. TRACH IN PLACE CARDIOVASCULAR: Regular rate and rhythm. RESPIRATORY: No accessory muscle use. Clear to auscultation. Breath sounds equal bilaterally. GASTROINTESTINAL: Abdomen soft, non-tender, nondistended. Hepatic and splenic margins not palpable. MUSCULOSKELETAL: Extremities without clubbing, cyanosis, or edema. No obvious deformities. NEUROLOGICAL: Awake and alert. No obvious cranial nerve deficits. Motor grossly within normal limits. Five out of 5 muscle strength in the arms and legs. Normal speech. PSYCHIATRIC: Appropriate mood and affect; insight and judgment normal. Assessment and Plan Assessment and Plan LARYNGEAL CA S/P TRACH PLAN PULM TOILET REMOVE TRACHEOSTOMY WHEN POSSIBLE Kamran Andrew MD Jun 09, 2016 15:46
[2016-06-09] MEDS: REMOVE OLD NICODERM (NICOTINE) PATCH TD SCH (21:00)
[2016-06-09] MEDS: TEMAZEPAM 15 MG CAP PO PRN (22:02)
--- NOTE | 2016-06-09 23:57 | HHI.PR ---
Subjective Remarks patient seen this morning around 11:45 AM. Patient says he feels well. Denies any chest pain or shortness breath. No nausea or vomiting. Objective Vital Signs Date Time Temp Pulse Resp B/P Pulse Ox O2 Delivery O2 Flow Rate FiO2 06/09/16 23:19 18 06/09/16 22:58 16 06/09/16 20:00 96.9 83 16 122/68 97 06/09/16 16:00 97.4 73 18 103/59 97 06/09/16 12:00 97.5 69 18 109/66 96 06/09/16 08:00 97.1 70 18 96/65 95 06/09/16 04:00 97.5 70 18 110/77 98 06/09/16 00:00 97.1 71 18 88/68 94 I/O 06/08/16 06/08/16 06/08/16 06/09/16 06/09/16 06/09/16 07:00 15:00 23:00 07:00 15:00 23:00 Intake Total 120 ml 1080 ml 480 ml 120 ml 840 ml Balance 120 ml 1080 ml 480 ml 120 ml 840 ml Intake Oral 120 ml 1080 ml 480 ml 120 ml 840 ml # Voids 1 4 2 1 4 # Bowel Movements 0 1 0 0 0 Result Diagram: 06/08/16 0708 06/08/16 0708 Procedures 05/05/16 Laryngeal mass biopsy 05/05/16 tracheostomy Objective Remarks GENERAL: Patient sitting up in bed. Off oxygen. alert and oriented 3. Appears comfortable. Exam again unchanged. SKIN: Warm and dry. HEAD: Normocephalic. EYES: No scleral icterus. No injection or drainage. NECK: Supple, trachea midline. No JVD. trache without any surrounding erythema. CARDIOVASCULAR: Regular rate and rhythm without murmurs, gallops, or rubs. RESPIRATORY: Breath sounds equal bilaterally. No accessory muscle use. GASTROINTESTINAL: Abdomen soft, non-tender, nondistended. MUSCULOSKELETAL: No cyanosis, or edema. BACK: Nontender without obvious deformity. No CVA tenderness. A/P Assessment and Plan 06/09/16. Patient seen and examined. Vital signs continue stable. again, No acute changes. Awaiting placement.appreciate case management assistance.continue to monitor. //Laryngeal mass/ Invasive squamous cell carcinoma Oncology, ENT, General Surgery following. Status post biopsy of the mass, status post tracheostomy. PEG tube placed on 05/06/16. - On regular diet as per surgery, speech therapy following. - chemotherapy and radiation per oncology. -Labs overall stable. Mild hyponatremia. Follow labs as needed. //Skin Rash Patient states for the last 2 days he's noticed a red rash on both of his arms from his elbow up to his shoulder. Suspect this could be a contact dermatitis, or related to laundry soaps or irritations from hospital linen. Patient has been here over a month, and has not had any issue. Possibly related to radiation and or chemotherapy - Treat with hydrocortisone 2.5% topically twice a day -06/02. Antecubital space, patient says he sleeps with arms bent. Appears to be fungal in nature. Will add topical miconazole. -06/03. Slightly improved. Still waiting for miconazole. =much improved. //Hemoptysis The pt endorses small amounts of blood occasionally with sputum production. S/t cancer, trach and radiation. - continue to monitor. CBC stable. //COPD Stable at this time. - continue bronchodilators, mucolytics and incentive spirometry. - Strongly recommended to stop smoking. - oxygen as needed. - follow up with pulmonology as outpatient. //HCAP Bilateral base infiltrates. Sputum culture grew Pseudomonas Aeruginosa. - s/p course of antibiotics. //Hypotension Well controlled 05/31. - Monitor. //Constipation. Resolved. -06/05. scheduled Adenike-Colace prevention. -Continue to monitor //PPx: Lovenox. Discharge Planning -Patient passed oxygen evaluation. Does not need oxygen. respiratory feels that patient would not do well at home without respiratory care. Patient may need SNF. -patient needs a safe place to stay, and available transportation. Davide Bennett MD Jun 09, 2016 23:57
[2016-06-10] VITALS (9 sets, daily range): BP systolic 98–130; BP diastolic 65–79; PULSE 71–89; RESP 16; TEMP 96.8–97.8; O2SAT 90–98
[2016-06-10] MEDS: oxyCODONE/ACETAMINOPHEN 10 MG/325 MG TAB PO PRN ×3 (06:02→22:17)
[2016-06-10] MEDS: ENOXAPARIN SODIUM 40 MG/0.4 ML SYRINGE SQ SCH (06:02)
--- NOTE | 2016-06-10 07:21 | PD.ONC.PN ---
Subjective Subjective Remarks Patient reports feeling well, his trach is Most the time and has been downsized. He wants to know if this may be removed before he goes home. Overall, he is tolerating chemotherapy and radiation without significant difficulties. He does report some soreness in the throat when he swallows but is essentially swallowing without difficulty, he is meeting 100% of his nutritional needs orally. He tells me he may be discharged in the upcoming 2-3 days. Objective Data Date Time Temp Pulse Resp B/P Pulse Ox O2 Delivery O2 Flow Rate FiO2 06/10/16 07:03 16 06/10/16 04:00 96.9 85 16 108/75 95 06/10/16 01:10 90 06/10/16 00:00 96.8 77 16 109/65 97 06/09/16 22:58 16 06/09/16 20:00 96.9 83 16 122/68 97 06/09/16 19:59 97 06/09/16 16:00 97.4 73 18 103/59 97 06/09/16 12:00 97.5 69 18 109/66 96 06/09/16 08:00 97.1 70 18 96/65 95 06/10/16 06/10/16 06/10/16 07:00 15:00 23:00 Intake Total 240 ml Balance 240 ml Result Diagram: 06/08/16 0708 06/08/16 0708 Administered Medications Medications (Trade) Dose Ordered Sig/Darryl Route PRN Reason Start Time Stop Time Status Last Admin Dose Admin IV Flush (NS Flush) 2 ml UNSCH PRN FLUSH FLUSH AFTER USING IV ACCESS 05/01/16 15:15 05/21/16 13:19 IV Flush (NS Flush) 2 ml BID FLUSH 05/01/16 21:00 06/07/16 09:34 Ondansetron HCl (Zofran Inj) 4 mg Q6H PRN IVP NAUSEA OR VOMITING 05/01/16 15:15 05/29/16 13:46 Metoclopramide HCl (Reglan Inj) 5 mg Q8H PRN IV PUSH NAUSEA 05/07/16 22:15 06/05/16 20:56 Docusate Sodium (Colace) 100 mg TID PO 05/08/16 09:00 06/09/16 17:29 Nicotine (Habitrol 7 Mg Patch.24 Hr) 1 patch DAILY TD 05/09/16 16:00 06/09/16 09:02 Miscellaneous Information 1 HS TD 05/09/16 21:00 06/09/16 21:00 Guaifenesin/ Dextromethorphan (Robitussin Dm 200-20 Mg/10 ml Liq) 10 ml Q6H PRN PO COUGH 05/11/16 17:00 05/13/16 04:13 Guaifenesin (Mucinex Er) 600 mg BID PO 05/11/16 21:30 06/09/16 21:58 Benzonatate (Tessalon) 200 mg TID PRN PO cough interfering w/rest 05/11/16 21:30 05/14/16 20:39 Acetaminophen (Tylenol) 650 mg Q6HR PRN PO fever > 100.4 05/11/16 21:30 05/17/16 13:06 Pantoprazole Sodium (Protonix) 40 mg DAILY PO 05/12/16 09:00 06/09/16 09:01 Enoxaparin Sodium (Lovenox Inj) 40 mg Q24H SQ 05/12/16 06:00 06/10/16 06:02 Morphine Sulfate (Morphine Inj) 4 mg Q3H PRN IV BREAKTHROUGH PAIN 05/13/16 11:15 06/03/16 00:28 Morphine Sulfate (Oramorph Sr) 15 mg Q12HR PO 05/25/16 21:00 06/09/16 21:58 Oxycodone/ Acetaminophen (Percocet 5-325 Mg) 1 tab Q4H PRN PO PAIN SCALE 3 TO 5 05/27/16 13:15 06/05/16 04:28 Oxycodone/ Acetaminophen (Percocet 10-325 Mg) 1 tab Q4H PRN PO PAIN SCALE 6 TO 10 05/27/16 13:15 06/10/16 06:02 Furosemide 40 mg 40 mg Q7D IV PUSH 05/27/16 12:00 06/17/16 12:59 06/03/16 13:42 Dexamethasone Sodium Phosphate/ Sodium Chloride (Decadron Inj/NS Inj) 52.5 ml @ 210 mls/hr Q7D IV 05/27/16 12:00 06/17/16 12:14 06/03/16 13:40 Mannitol 12.5 gm 12.5 gm Q7D IV 05/27/16 12:30 06/17/16 13:31 06/03/16 14:16 Cisplatin/Sodium Chloride (Platinol Inj/NS Inj) 225 ml @ 225 mls/hr Q7D IV 05/27/16 13:00 06/17/16 13:59 06/03/16 14:36 Granisetron HCl (Kytril Inj) 1 mg Q7D IV 05/27/16 12:00 06/17/16 12:01 06/03/16 13:43 Temazepam (Restoril) 15 mg HS PRN PO insomnia 05/28/16 21:00 06/09/16 22:02 Hydrocortisone (Eldecort 2.5% Cream) 1 applic BID TOPICAL 06/01/16 12:15 06/09/16 21:59 Miconazole Nitrate (Micatin 2% Cream) 1 applic Q12HR TOPICAL 06/02/16 21:00 06/08/16 19:53 Senna/Docusate Sodium (Adenike-Colace) 1 tab DAILY PO 06/05/16 12:00 06/09/16 09:01 Objective Remarks GENERAL: Middle-aged male, sitting up in bed, tracheostomy in place. He sitting up in bed, speaks to me in a hoarse voice but in full sentences. SKIN: Warm and dry. HEAD: Normocephalic. EYES: No scleral icterus. No injection or drainage. NECK: Supple, trachea midline. No JVD or lymphadenopathy. Tracheostomy which is. LYMPHATIC: No adenopathy. CARDIOVASCULAR: Regular rate and rhythm without murmurs. RESPIRATORY: Prolonged expiratory phase, scattered rhonchi. GASTROINTESTINAL: Abdomen soft, non-tender, nondistended. Feeding tube placement. EXTREMITIES: No cyanosis, or edema. MUSCULOSKELETAL: Adequate muscle tone. NEUROLOGICAL: No obvious focal deficit. Awake, alert, and oriented x3. PSYCHIATRIC: Appropriate mood and affect; insight and judgment normal. 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 05/20: cisplatin 40 mg/m2 05/27: cisplatin 40 mg/m2 06/03: cisplatin 40 mg/m2 05/21: started XRT--continue Thursday-Thursday for 35 treatments Plan 1. Squamous cell carcinoma: continuing to tolerate M-F XRT + weekly cisplatin. Dose #4 Cisplatin on 06/10/2016, labs including renal function and chemistries were reviewed. No evidence of renal failure or cytopenias. 2. Nutrition: is eating 100% of meals, has not required use of his PEG tube 3. DVT prophylaxis: continue Lovenox for prophylaxis 4. respiratory: consult respiratory for O2 walk test Disposition: May be discharged once outpatient follow-up has been arranged. From my standpoint this man has his tracheostomy, he is not requiring oxygen supplementation or suctioning, he is also not onto feeds. I'm not certain if he has any nursing needs which required placement. Urban Lofton MD Jun 10, 2016 07:20
[2016-06-10] MEDS: SODIUM CHLORIDE 0.9% FLUSH 5 ML FLUSH FLUSH SCH ×2 (09:00→21:00)
--- NOTE | 2016-06-10 09:07 | HHI.PR ---
Subjective Remarks Stable in his bedroom no Nausea, vomit or diarrhea discussed with nurse Mr. Quan having Chemotherapy at this time. Objective Vital Signs Date Time Temp Pulse Resp B/P Pulse Ox O2 Delivery O2 Flow Rate FiO2 06/10/16 07:03 16 06/10/16 04:00 96.9 85 16 108/75 95 06/10/16 01:10 90 06/10/16 00:00 96.8 77 16 109/65 97 06/09/16 22:58 16 06/09/16 20:00 96.9 83 16 122/68 97 06/09/16 19:59 97 06/09/16 16:00 97.4 73 18 103/59 97 06/09/16 12:00 97.5 69 18 109/66 96 I/O 06/09/16 06/09/16 06/09/16 06/10/16 06/10/16 06/10/16 07:00 15:00 23:00 07:00 15:00 23:00 Intake Total 120 ml 1320 ml 240 ml Balance 120 ml 1320 ml 240 ml Intake Oral 120 ml 1320 ml 240 ml # Voids 1 6 1 # Bowel Movements 0 0 Result Diagram: 06/08/16 0708 06/08/16 0708 Imaging Last Impressions Chest X-Ray 05/10/16 0000 Signed Impressions: Service Date/Time: Tuesday, May 10, 2016 11:23 - CONCLUSION: Atelectasis at the lung bases. No other acute cardiopulmonary disease identified. Suhail Calderon MD Gastrostomy Tube Placement 05/06/16 0000 Signed Impressions: Service Date/Time: Friday, May 06, 2016 13:15 - CONCLUSION: Uncomplicated gastrostomy tube placement as above. Fabian Blackwood Jr., MD Chest CT 05/03/16 0000 Signed Impressions: Service Date/Time: Tuesday, May 03, 2016 11:33 - CONCLUSION: 1. Emphysema and right upper lobe scarring. Scarring is mildly nodular but still most likely benign. Six-month followup noncontrast chest CT recommended. 2. No lymphadenopathy. 3. Coronary artery calcification. John Mcdonnell MD Abdomen/Pelvis CT 05/03/16 0000 Signed Impressions: Service Date/Time: Tuesday, May 03, 2016 11:33 - CONCLUSION: 1. No malignancy or other acute abnormality seen within the abdomen or pelvis. 2. Diverticulosis of the colon without acute inflammatory changes. 3. Atherosclerotic aorta. No aneurysm. John Mcdonnell MD Neck CT 05/01/16 0000 Signed Impressions: Service Date/Time: April 13:51 - CONCLUSION: 1. Large mass involving the larynx measuring 3.5 x 2.0 cm causing significant compromise to the airway. No adenopathy observed. Malignancy is felt most likely. 2. Severe emphysematous changes. 3. Areas of probable scarring involving the right lung apex. This is nodular in appearance in one area that is partially visualized. I suggest a CT of the thorax to further evaluate. Fabian Blackwood Jr., MD Procedures 05/05/16 Laryngeal mass biopsy 05/05/16 tracheostomy Other Results Laboratory Tests Test 06/06/16 06/08/16 06:12 07:08 Phosphorus Level 3.7 MG/DL Magnesium Level 1.9 MG/DL Albumin 2.7 GM/DL White Blood Count 6.2 TH/MM3 Red Blood Count 3.90 MIL/MM3 Hemoglobin 12.0 GM/DL Hematocrit 35.5 % Mean Corpuscular Volume 91.0 FL Mean Corpuscular Hemoglobin 30.7 PG Mean Corpuscular Hemoglobin 33.7 % Concent Red Cell Distribution Width 13.8 % Platelet Count 191 TH/MM3 Mean Platelet Volume 7.1 FL Neutrophils (%) (Auto) 75.2 % Lymphocytes (%) (Auto) 12.5 % Monocytes (%) (Auto) 8.7 % Eosinophils (%) (Auto) 3.1 % Basophils (%) (Auto) 0.5 % Neutrophils # (Auto) 4.6 TH/MM3 Lymphocytes # (Auto) 0.8 TH/MM3 Monocytes # (Auto) 0.5 TH/MM3 Eosinophils # (Auto) 0.2 TH/MM3 Basophils # (Auto) 0.0 TH/MM3 CBC Comment DIFF FINAL Differential Comment Sodium Level 137 MEQ/L Potassium Level 4.3 MEQ/L Chloride Level 102 MEQ/L Carbon Dioxide Level 27.8 MEQ/L Anion Gap 7 MEQ/L Blood Urea Nitrogen 16 MG/DL Creatinine 0.59 MG/DL Estimat Glomerular Filtration 141 ML/MIN Rate Random Glucose 88 MG/DL Calcium Level 8.8 MG/DL Objective Remarks General: No acute distress. Trach. Heart: Regular rate and rhythm. No murmur. Lungs: Clear to auscultation bilaterally. No wheezes, rales, or rhonchi. Breathing is nonlabored. Abdomen: Soft, nontender, nondistended. PEG tube in place - C/D/I Extremities: No lower extremity edema. No calf tenderness. Psych: Alert and oriented. Nonverbal. Medications and IVs Current Medications Medications (Trade) Dose Ordered Sig/Darryl Route Start Time Stop Time Status Last Admin (NS Flush) 2 ml UNSCH PRN FLUSH 05/01/16 15:15 05/21/16 13:19 (NS Flush) 2 ml BID FLUSH 05/01/16 21:00 06/07/16 09:34 (Zofran Inj) 4 mg Q6H PRN IVP 05/01/16 15:15 05/29/16 13:46 (Reglan Inj) 5 mg Q8H PRN IV PUSH 05/07/16 22:15 06/05/16 20:56 (Colace) 100 mg TID PO 05/08/16 09:00 06/09/16 17:29 (Habitrol 7 Mg Patch.24 Hr) 1 patch DAILY TD 05/09/16 16:00 06/09/16 09:02 Miscellaneous Information 1 HS TD 05/09/16 21:00 06/09/16 21:00 (Robitussin Dm 200-20 Mg/10 ml Liq) 10 ml Q6H PRN PO 05/11/16 17:00 05/13/16 04:13 (Mucinex Er) 600 mg BID PO 05/11/16 21:30 06/09/16 21:58 (Tessalon) 200 mg TID PRN PO 05/11/16 21:30 05/14/16 20:39 (Tylenol) 650 mg Q6HR PRN PO 05/11/16 21:30 05/17/16 13:06 (Protonix) 40 mg DAILY PO 05/12/16 09:00 06/09/16 09:01 (Lovenox Inj) 40 mg Q24H SQ 05/12/16 06:00 06/10/16 06:02 (Tylenol) 650 mg Q6H PRN PO 05/13/16 11:15 (Morphine Inj) 4 mg Q3H PRN IV 05/13/16 11:15 06/03/16 00:28 (Narcan Inj) 0.4 mg UNSCH PRN IV 05/13/16 11:15 (Oramorph Sr) 15 mg Q12HR PO 05/25/16 21:00 06/09/16 21:58 (Percocet 5-325 Mg) 1 tab Q4H PRN PO 05/27/16 13:15 06/05/16 04:28 (Percocet 10-325 Mg) 1 tab Q4H PRN PO 05/27/16 13:15 06/10/16 06:02 Furosemide 40 mg 40 mg Q7D IV PUSH 05/27/16 12:00 06/17/16 12:59 06/03/16 13:42 (Decadron Inj/NS Inj) 52.5 ml @ 210 mls/hr Q7D IV 05/27/16 12:00 06/17/16 12:14 06/03/16 13:40 Mannitol 12.5 gm 12.5 gm Q7D IV 05/27/16 12:30 06/17/16 13:31 06/03/16 14:16 (Platinol Inj/NS Inj) 225 ml @ 225 mls/hr Q7D IV 05/27/16 13:00 06/17/16 13:59 06/03/16 14:36 Granisetron HCl 1 mg 1 mg Q7D IV 05/27/16 12:00 06/17/16 12:01 06/03/16 13:43 Potassium Chloride 10 meq/ Sodium Chloride 505 ml @ 500 mls/hr Q1H1M IV 06/10/16 12:00 06/10/16 13:00 Potassium Chloride 10 meq/ Dextrose/Sodium Chloride 505 ml @ 500 mls/hr Q1H1M IV 06/10/16 13:00 06/10/16 14:00 Potassium Chloride 10 meq/ Magnesium Sulfate 8 meq/Dextrose/ Sodium Chloride 1,007 ml @ 500 mls/hr Q2H1M IV 06/10/16 14:00 06/10/16 16:00 Potassium Chloride 10 meq/ Sodium Chloride 505 ml @ 500 mls/hr Q1H1M IV 06/17/16 12:00 06/17/16 13:00 Potassium Chloride 10 meq/ Dextrose/Sodium Chloride 505 ml @ 500 mls/hr Q1H1M IV 06/17/16 13:00 06/17/16 14:00 (KCl Inj/ Magnesium Sulfate Inj/D5W-1/2 NS 1000 ml Inj) 1,007 ml @ 500 mls/hr Q2H1M IV 06/17/16 14:00 06/17/16 16:00 (Restoril) 15 mg HS PRN PO 05/28/16 21:00 06/09/16 22:02 (Eldecort 2.5% Cream) 1 applic BID TOPICAL 06/01/16 12:15 06/09/16 21:59 (Micatin 2% Cream) 1 applic Q12HR TOPICAL 06/02/16 21:00 06/08/16 19:53 (Adenike-Colace) 1 tab DAILY PO 06/05/16 12:00 06/09/16 09:01 A/P Assessment and Plan 1. Laryngeal Mass Invasive Squamous Cell Carcinoma, senior education specialist following, ENT, General community living specialist Status post Biopsy of the mass, Status post Tracheostomy, continue Chemotherapy. as per youth care specialist to remove tracheostomy tube, Radiation therapy. PEG tube placed on 05/06/16, Dietary consult requested. On Regular diet as per Surgery, Speech therapy following. decreased cannula size by youth care specialist 2. COPD continue Bronchodilator, Mucolytic and Incentive spirometry. Stable. 3. Tobacco dependence Strongly recommended to stop smoking 4. Pneumonia HCAP bilateral bases infiltrates. on Vancomycin and Cefepime Pseudomonas Aeruginosa fluorescens. Discontinued Vancomycin. discontinued Cefepime and switch to Levaquin. patient improving clinically continue afebrile removed Levaquin 5. Hemoptysis improving discussed with patient and nurse, as per Pigment Processor the patient will continue treatment In House. DVT prophylaxis with Lovenox. chemotherapy and Radiation therapy. //PPx: Lovenox. Discharge Planning Awaiting final by youth care specialist and Oncology for discharge rn care manager for discharge. Jarred Funes MD Jun 10, 2016 09:07 - Treat with hydrocortisone 2.5% topically twice a day -06/02. Antecubital space, patient says he sleeps with arms bent. Appears to be fungal in nature. Will add topical miconazole. -06/03. Slightly improved. Still waiting for miconazole. =much improved. //Hemoptysis The pt endorses small amounts of blood occasionally with sputum production. S/t cancer, trach and radiation. - continue to monitor. CBC stable //PPx: Lovenox. Discharge Planning -Patient passed oxygen evaluation. Does not need oxygen. respiratory feels that patient would not do well at home without respiratory care. Patient may need SNF. -patient needs a safe place to stay, and available transportation. Discharge Planning Awaiting final by youth care specialist and Oncology for discharge rn care manager for discharge. Jarred Funes MD Jun 10, 2016 09:07
[2016-06-10] MEDS: NICOTINE 7 MG/24 HR PATCH TD SCH (09:15)
[2016-06-10] MEDS: guaiFENesin E.R. 600 MG TAB PO SCH ×2 (09:15→22:12)
[2016-06-10] MEDS: PANTOPRAZOLE SOD 40 MG DELAYED RELEASE TAB PO SCH (09:15)
[2016-06-10] MEDS: DOCUSATE SODIUM 50 MG/SENNA 8.6 MG TAB PO SCH (09:15)
[2016-06-10] MEDS: DOCUSATE SODIUM 100 MG CAP PO SCH ×3 (09:15→18:00)
[2016-06-10] MEDS: MORPHINE SULFATE 15 MG CONTROLLED RELEASE TAB PO SCH ×2 (09:18→22:12)
[2016-06-10] MEDS: HYDROCORTISONE 2.5% CREAM 30 GM TOPICAL SCH ×2 (09:18→22:13)
[2016-06-10] MEDS: MICONAZOLE NITRATE 2% CREAM 15 GM TOPICAL SCH ×2 (09:18→21:00)
[2016-06-10] MEDS ORDERED: SODIUM CHLORID 0.9% IV SCH (12:00)
[2016-06-10] MEDS ORDERED: POTASSIUM CHLORIDE IV SCH ×3 (12:00→14:00)
[2016-06-10] MEDS ORDERED: NACL 0.45% IV SCH (13:00)
[2016-06-10] MEDS ORDERED: DEXT 5% IV SCH (13:00)
[2016-06-10] MEDS: GRANISETRON HCL 1 MG/ML VIAL IV SCH (13:08)
[2016-06-10] MEDS: FUROSEMIDE 40 MG/4 ML VIAL IV PUSH SCH (13:08)
[2016-06-10] MEDS: DEXAMETHASONE INJ 10 MG in SODIUM CHLORIDE 0.9% INJ 50 ML IV SCH (13:08)
[2016-06-10] MEDS: MANNITOL 12.5 GM/50 ML VIAL IV SCH (13:26)
[2016-06-10] MEDS ORDERED: [UNRECOGNIZED DRUG - OTHER] IV SCH (14:00)
[2016-06-10] MEDS ORDERED: MAGNESIUM SULFATE IV SCH (14:00)
[2016-06-10] MEDS: CISPLATIN IV SCH (15:09)
[2016-06-10] MEDS: SODIUM CHLORIDE 0.9% IV SCH (15:09)
--- NOTE | 2016-06-10 16:24 | HHI.PR ---
Subjective Remarks ALERT NO SOB TRACH changed started therapy Objective Vital Signs Date Time Temp Pulse Resp B/P Pulse Ox O2 Delivery O2 Flow Rate FiO2 06/10/16 12:00 97.1 89 16 104/79 94 06/10/16 10:04 98 Trach Collar 28 06/10/16 08:00 97.8 73 16 105/68 95 06/10/16 07:03 16 06/10/16 04:00 96.9 85 16 108/75 95 06/10/16 01:10 90 06/10/16 00:00 96.8 77 16 109/65 97 06/09/16 22:58 16 06/09/16 20:00 96.9 83 16 122/68 97 06/09/16 19:59 97 I/O 06/09/16 06/09/16 06/09/16 06/10/16 06/10/16 06/10/16 06:59 14:59 22:59 06:59 14:59 22:59 Intake Total 120 ml 1320 ml 240 ml 960 ml Output Total 900 ml Balance 120 ml 1320 ml 240 ml 60 ml Intake Oral 120 ml 1320 ml 240 ml 960 ml Output Urine Total 900 ml # Voids 1 6 1 3 # Bowel Movements 0 0 1 Result Diagram: 06/08/16 0708 06/08/16 0708 Procedures 05/05/16 Laryngeal mass biopsy 05/05/16 tracheostomy Objective Remarks GENERAL: SKIN: Warm and dry. HEAD: Atraumatic. Normocephalic. EYES: Pupils equal and round. No scleral icterus. No injection or drainage. ENT: No nasal bleeding or discharge. Mucous membranes pink and moist. NECK: Trachea midline. No JVD. TRACH IN PLACE CARDIOVASCULAR: Regular rate and rhythm. RESPIRATORY: No accessory muscle use. Clear to auscultation. Breath sounds equal bilaterally. GASTROINTESTINAL: Abdomen soft, non-tender, nondistended. Hepatic and splenic margins not palpable. MUSCULOSKELETAL: Extremities without clubbing, cyanosis, or edema. No obvious deformities. NEUROLOGICAL: Awake and alert. No obvious cranial nerve deficits. Motor grossly within normal limits. Five out of 5 muscle strength in the arms and legs. Normal speech. PSYCHIATRIC: Appropriate mood and affect; insight and judgment normal. Assessment and Plan Assessment and Plan LARYNGEAL CA S/P TRACH PLAN PULM TOILET REMOVE TRACHEOSTOMY WHEN POSSIBLE Kamran Andrew MD Jun 10, 2016 16:24
[2016-06-10] MEDS: REMOVE OLD NICODERM (NICOTINE) PATCH TD SCH (21:00)
[2016-06-10] MEDS: TEMAZEPAM 15 MG CAP PO PRN (22:11)
[2016-06-11] VITALS (8 sets, daily range): BP systolic 112–140; BP diastolic 74–83; PULSE 64–81; RESP 16–20; TEMP 96.3–98; O2SAT 96–98
[2016-06-11] MEDS: ENOXAPARIN SODIUM 40 MG/0.4 ML SYRINGE SQ SCH (05:42)
[2016-06-11] MEDS: oxyCODONE/ACETAMINOPHEN 10 MG/325 MG TAB PO PRN ×5 (05:42→22:26)
[2016-06-11] MEDS: MICONAZOLE NITRATE 2% CREAM 15 GM TOPICAL SCH ×2 (09:00→21:00)
[2016-06-11] MEDS: PANTOPRAZOLE SOD 40 MG DELAYED RELEASE TAB PO SCH (09:13)
[2016-06-11] MEDS: guaiFENesin E.R. 600 MG TAB PO SCH ×2 (09:13→21:41)
[2016-06-11] MEDS: DOCUSATE SODIUM 100 MG CAP PO SCH ×3 (09:13→16:21)
[2016-06-11] MEDS: DOCUSATE SODIUM 50 MG/SENNA 8.6 MG TAB PO SCH (09:13)
[2016-06-11] MEDS: NICOTINE 7 MG/24 HR PATCH TD SCH (09:13)
[2016-06-11] MEDS: MORPHINE SULFATE 15 MG CONTROLLED RELEASE TAB PO SCH ×2 (09:14→21:41)
[2016-06-11] MEDS: HYDROCORTISONE 2.5% CREAM 30 GM TOPICAL SCH ×2 (09:17→21:41)
[2016-06-11] MEDS: SODIUM CHLORIDE 0.9% FLUSH 5 ML FLUSH FLUSH SCH ×2 (09:21→21:00)
--- NOTE | 2016-06-11 14:59 | HHI.PR ---
Subjective Remarks Seen in his bedroom stable no Nausea, vomit or diarrhea. Objective Vital Signs Date Time Temp Pulse Resp B/P Pulse Ox O2 Delivery O2 Flow Rate FiO2 06/11/16 13:23 98 21 06/11/16 12:00 96.3 66 20 116/75 98 06/11/16 08:00 96.9 75 20 140/81 98 06/11/16 06:44 16 06/11/16 05:15 97.3 74 16 135/74 96 06/11/16 01:00 96.7 81 16 132/77 96 06/10/16 23:20 16 06/10/16 20:00 97.2 83 16 130/76 95 06/10/16 17:58 95 21 06/10/16 16:00 97.6 71 16 98/71 95 I/O 06/10/16 06/10/16 06/10/16 06/11/16 06/11/16 06/11/16 07:00 15:00 23:00 07:00 15:00 23:00 Intake Total 240 ml 960 ml 720 ml 240 ml Output Total 900 ml 1350 ml Balance 240 ml 60 ml -630 ml 240 ml Intake Oral 240 ml 960 ml 720 ml 240 ml Output Urine Total 900 ml 1350 ml # Voids 1 3 3 1 # Bowel Movements 1 Result Diagram: 06/08/16 0708 06/08/16 0708 Imaging Last Impressions Chest X-Ray 05/10/16 0000 Signed Impressions: Service Date/Time: Tuesday, May 10, 2016 11:23 - CONCLUSION: Atelectasis at the lung bases. No other acute cardiopulmonary disease identified. Suhail Calderon MD Gastrostomy Tube Placement 05/06/16 0000 Signed Impressions: Service Date/Time: Friday, May 06, 2016 13:15 - CONCLUSION: Uncomplicated gastrostomy tube placement as above. Fabian Blackwood Jr., MD Chest CT 05/03/16 0000 Signed Impressions: Service Date/Time: Tuesday, May 03, 2016 11:33 - CONCLUSION: 1. Emphysema and right upper lobe scarring. Scarring is mildly nodular but still most likely benign. Six-month followup noncontrast chest CT recommended. 2. No lymphadenopathy. 3. Coronary artery calcification. John Mcdonnell MD Abdomen/Pelvis CT 05/03/16 0000 Signed Impressions: Service Date/Time: Tuesday, May 03, 2016 11:33 - CONCLUSION: 1. No malignancy or other acute abnormality seen within the abdomen or pelvis. 2. Diverticulosis of the colon without acute inflammatory changes. 3. Atherosclerotic aorta. No aneurysm. John Mcdonnell MD Neck CT 05/01/16 0000 Signed Impressions: Service Date/Time: April 13:51 - CONCLUSION: 1. Large mass involving the larynx measuring 3.5 x 2.0 cm causing significant compromise to the airway. No adenopathy observed. Malignancy is felt most likely. 2. Severe emphysematous changes. 3. Areas of probable scarring involving the right lung apex. This is nodular in appearance in one area that is partially visualized. I suggest a CT of the thorax to further evaluate. Fabian Blackwood Jr., MD Procedures 05/05/16 Laryngeal mass biopsy 05/05/16 tracheostomy Other Results Laboratory Tests Test 06/08/16 07:08 White Blood Count 6.2 TH/MM3 Red Blood Count 3.90 MIL/MM3 Hemoglobin 12.0 GM/DL Hematocrit 35.5 % Mean Corpuscular Volume 91.0 FL Mean Corpuscular Hemoglobin 30.7 PG Mean Corpuscular Hemoglobin 33.7 % Concent Red Cell Distribution Width 13.8 % Platelet Count 191 TH/MM3 Mean Platelet Volume 7.1 FL Neutrophils (%) (Auto) 75.2 % Lymphocytes (%) (Auto) 12.5 % Monocytes (%) (Auto) 8.7 % Eosinophils (%) (Auto) 3.1 % Basophils (%) (Auto) 0.5 % Neutrophils # (Auto) 4.6 TH/MM3 Lymphocytes # (Auto) 0.8 TH/MM3 Monocytes # (Auto) 0.5 TH/MM3 Eosinophils # (Auto) 0.2 TH/MM3 Basophils # (Auto) 0.0 TH/MM3 CBC Comment DIFF FINAL Differential Comment Sodium Level 137 MEQ/L Potassium Level 4.3 MEQ/L Chloride Level 102 MEQ/L Carbon Dioxide Level 27.8 MEQ/L Anion Gap 7 MEQ/L Blood Urea Nitrogen 16 MG/DL Creatinine 0.59 MG/DL Estimat Glomerular Filtration 141 ML/MIN Rate Random Glucose 88 MG/DL Calcium Level 8.8 MG/DL Objective Remarks General: No acute distress. Trach. Heart: Regular rate and rhythm. No murmur. Lungs: Clear to auscultation bilaterally. No wheezes, rales, or rhonchi. Breathing is nonlabored. Abdomen: Soft, nontender, nondistended. PEG tube in place - C/D/I Extremities: No lower extremity edema. No calf tenderness. Psych: Alert and oriented. Nonverbal. Medications and IVs Current Medications Medications (Trade) Dose Ordered Sig/Darryl Route Start Time Stop Time Status Last Admin (NS Flush) 2 ml UNSCH PRN FLUSH 05/01/16 15:15 05/21/16 13:19 (NS Flush) 2 ml BID FLUSH 05/01/16 21:00 06/11/16 09:21 (Zofran Inj) 4 mg Q6H PRN IVP 05/01/16 15:15 05/29/16 13:46 (Reglan Inj) 5 mg Q8H PRN IV PUSH 05/07/16 22:15 06/05/16 20:56 (Colace) 100 mg TID PO 05/08/16 09:00 06/11/16 12:42 (Habitrol 7 Mg Patch.24 Hr) 1 patch DAILY TD 05/09/16 16:00 06/11/16 09:13 Miscellaneous Information 1 HS TD 05/09/16 21:00 06/10/16 21:00 (Robitussin Dm 200-20 Mg/10 ml Liq) 10 ml Q6H PRN PO 05/11/16 17:00 05/13/16 04:13 (Mucinex Er) 600 mg BID PO 05/11/16 21:30 06/11/16 09:13 (Tessalon) 200 mg TID PRN PO 05/11/16 21:30 05/14/16 20:39 (Tylenol) 650 mg Q6HR PRN PO 05/11/16 21:30 05/17/16 13:06 (Protonix) 40 mg DAILY PO 05/12/16 09:00 06/11/16 09:13 (Lovenox Inj) 40 mg Q24H SQ 05/12/16 06:00 06/11/16 05:42 (Tylenol) 650 mg Q6H PRN PO 05/13/16 11:15 (Morphine Inj) 4 mg Q3H PRN IV 05/13/16 11:15 06/03/16 00:28 (Narcan Inj) 0.4 mg UNSCH PRN IV 05/13/16 11:15 (Oramorph Sr) 15 mg Q12HR PO 05/25/16 21:00 06/11/16 09:14 (Percocet 5-325 Mg) 1 tab Q4H PRN PO 05/27/16 13:15 06/05/16 04:28 (Percocet 10-325 Mg) 1 tab Q4H PRN PO 05/27/16 13:15 06/11/16 12:46 Furosemide 40 mg 40 mg Q7D IV PUSH 05/27/16 12:00 06/17/16 12:59 06/10/16 13:08 (Decadron Inj/NS Inj) 52.5 ml @ 210 mls/hr Q7D IV 05/27/16 12:00 06/17/16 12:14 06/10/16 13:08 Mannitol 12.5 gm 12.5 gm Q7D IV 05/27/16 12:30 06/17/16 13:31 06/10/16 13:26 (Platinol Inj/NS Inj) 225 ml @ 225 mls/hr Q7D IV 05/27/16 13:00 06/17/16 13:59 06/10/16 15:09 Granisetron HCl 1 mg 1 mg Q7D IV 05/27/16 12:00 06/17/16 12:01 06/10/16 13:08 Potassium Chloride 10 meq/ Sodium Chloride 505 ml @ 500 mls/hr Q1H1M IV 06/17/16 12:00 06/17/16 13:00 Potassium Chloride 10 meq/ Dextrose/Sodium Chloride 505 ml @ 500 mls/hr Q1H1M IV 06/17/16 13:00 06/17/16 14:00 (KCl Inj/ Magnesium Sulfate Inj/D5W-1/2 NS 1000 ml Inj) 1,007 ml @ 500 mls/hr Q2H1M IV 06/17/16 14:00 06/17/16 16:00 (Restoril) 15 mg HS PRN PO 05/28/16 21:00 06/10/16 22:11 (Eldecort 2.5% Cream) 1 applic BID TOPICAL 06/01/16 12:15 06/11/16 09:17 (Micatin 2% Cream) 1 applic Q12HR TOPICAL 06/02/16 21:00 06/08/16 19:53 (Adenike-Colace) 1 tab DAILY PO 06/05/16 12:00 06/11/16 09:13 A/P Assessment and Plan 1. Laryngeal Mass Invasive Squamous Cell Carcinoma, customer resource specialist following, ENT, General customer resource specialist Status post Biopsy of the mass, Status post Tracheostomy, continue Chemotherapy. as per online marketing specialist to remove tracheostomy tube, Radiation therapy. PEG tube placed on 05/06/16, Dietary consult requested. On Regular diet as per Surgery, Speech therapy following. decreased cannula size by online marketing specialist 2. COPD continue Bronchodilator, Mucolytic and Incentive spirometry. Stable. 3. Tobacco dependence Strongly recommended to stop smoking 4. Pneumonia HCAP bilateral bases infiltrates. on Vancomycin and Cefepime Pseudomonas Aeruginosa fluorescens. Discontinued Vancomycin. discontinued Cefepime and switch to Levaquin. patient improving clinically continue afebrile removed Levaquin 5. Hemoptysis No new issues. discussed with patient and nurse, as per Service Station Cashier the patient will continue treatment In House. DVT prophylaxis with Lovenox. chemotherapy and Radiation therapy. NO changes to anterior assessment. //PPx: Lovenox. Discharge Planning Awaiting final by online marketing specialist and Oncology for discharge wellness spa manager for discharge. Jarred Funes MD Jun 11, 2016 14:59
[2016-06-11] MEDS: REMOVE OLD NICODERM (NICOTINE) PATCH TD SCH (21:00)
[2016-06-11] MEDS: TEMAZEPAM 15 MG CAP PO PRN (21:52)
[2016-06-12] VITALS (9 sets, daily range): BP systolic 97–124; BP diastolic 62–85; PULSE 72–82; RESP 16–18; TEMP 97–99; O2SAT 94–97
[2016-06-12] MEDS: ENOXAPARIN SODIUM 40 MG/0.4 ML SYRINGE SQ SCH (03:20)
[2016-06-12] MEDS: oxyCODONE/ACETAMINOPHEN 10 MG/325 MG TAB PO PRN ×4 (03:20→17:36)
[2016-06-12] MEDS: guaiFENesin E.R. 600 MG TAB PO SCH ×2 (09:47→22:10)
[2016-06-12] MEDS: DOCUSATE SODIUM 100 MG CAP PO SCH ×3 (09:47→17:36)
[2016-06-12] MEDS: PANTOPRAZOLE SOD 40 MG DELAYED RELEASE TAB PO SCH (09:47)
[2016-06-12] MEDS: DOCUSATE SODIUM 50 MG/SENNA 8.6 MG TAB PO SCH (09:47)
[2016-06-12] MEDS: MORPHINE SULFATE 15 MG CONTROLLED RELEASE TAB PO SCH ×2 (09:47→22:10)
[2016-06-12] MEDS: SODIUM CHLORIDE 0.9% FLUSH 5 ML FLUSH FLUSH SCH ×2 (09:48→21:00)
[2016-06-12] MEDS: HYDROCORTISONE 2.5% CREAM 30 GM TOPICAL SCH ×2 (09:48→22:11)
[2016-06-12] MEDS: NICOTINE 7 MG/24 HR PATCH TD SCH (09:48)
[2016-06-12] MEDS: MICONAZOLE NITRATE 2% CREAM 15 GM TOPICAL SCH ×2 (09:48→21:00)
--- NOTE | 2016-06-12 10:21 | HHI.PR ---
Subjective Remarks Seen in his bedroom stable no Nausea, vomit or diarrhea. 06/12 No new issues Objective Vital Signs Date Time Temp Pulse Resp B/P Pulse Ox O2 Delivery O2 Flow Rate FiO2 06/12/16 04:00 97.0 72 18 108/67 96 06/12/16 00:00 97.4 75 18 124/70 96 06/11/16 20:00 97.5 80 18 119/83 96 06/11/16 17:57 97 21 06/11/16 16:00 98.0 64 20 112/75 97 06/11/16 13:23 98 21 06/11/16 12:00 96.3 66 20 116/75 98 I/O 06/11/16 06/11/16 06/11/16 06/12/16 06/12/16 06/12/16 07:00 15:00 23:00 07:00 15:00 23:00 Intake Total 240 ml 960 ml 480 ml 240 ml Balance 240 ml 960 ml 480 ml 240 ml Intake Oral 240 ml 960 ml 480 ml 240 ml # Voids 1 3 3 1 Result Diagram: 06/08/16 0708 06/08/16 0708 Imaging Last Impressions Chest X-Ray 05/10/16 0000 Signed Impressions: Service Date/Time: Tuesday, May 10, 2016 11:23 - CONCLUSION: Atelectasis at the lung bases. No other acute cardiopulmonary disease identified. Suhail Calderon MD Gastrostomy Tube Placement 05/06/16 0000 Signed Impressions: Service Date/Time: Friday, May 06, 2016 13:15 - CONCLUSION: Uncomplicated gastrostomy tube placement as above. Fabian Blackwood Jr., MD Chest CT 05/03/16 0000 Signed Impressions: Service Date/Time: Tuesday, May 03, 2016 11:33 - CONCLUSION: 1. Emphysema and right upper lobe scarring. Scarring is mildly nodular but still most likely benign. Six-month followup noncontrast chest CT recommended. 2. No lymphadenopathy. 3. Coronary artery calcification. John Mcdonnell MD Abdomen/Pelvis CT 05/03/16 0000 Signed Impressions: Service Date/Time: Tuesday, May 03, 2016 11:33 - CONCLUSION: 1. No malignancy or other acute abnormality seen within the abdomen or pelvis. 2. Diverticulosis of the colon without acute inflammatory changes. 3. Atherosclerotic aorta. No aneurysm. John Mcdonnell MD Neck CT 05/01/16 0000 Signed Impressions: Service Date/Time: April 13:51 - CONCLUSION: 1. Large mass involving the larynx measuring 3.5 x 2.0 cm causing significant compromise to the airway. No adenopathy observed. Malignancy is felt most likely. 2. Severe emphysematous changes. 3. Areas of probable scarring involving the right lung apex. This is nodular in appearance in one area that is partially visualized. I suggest a CT of the thorax to further evaluate. Fabian Blackwood Jr., MD Procedures 05/05/16 Laryngeal mass biopsy 05/05/16 tracheostomy Other Results Laboratory Tests Test 06/08/16 07:08 White Blood Count 6.2 TH/MM3 Red Blood Count 3.90 MIL/MM3 Hemoglobin 12.0 GM/DL Hematocrit 35.5 % Mean Corpuscular Volume 91.0 FL Mean Corpuscular Hemoglobin 30.7 PG Mean Corpuscular Hemoglobin 33.7 % Concent Red Cell Distribution Width 13.8 % Platelet Count 191 TH/MM3 Mean Platelet Volume 7.1 FL Neutrophils (%) (Auto) 75.2 % Lymphocytes (%) (Auto) 12.5 % Monocytes (%) (Auto) 8.7 % Eosinophils (%) (Auto) 3.1 % Basophils (%) (Auto) 0.5 % Neutrophils # (Auto) 4.6 TH/MM3 Lymphocytes # (Auto) 0.8 TH/MM3 Monocytes # (Auto) 0.5 TH/MM3 Eosinophils # (Auto) 0.2 TH/MM3 Basophils # (Auto) 0.0 TH/MM3 CBC Comment DIFF FINAL Differential Comment Sodium Level 137 MEQ/L Potassium Level 4.3 MEQ/L Chloride Level 102 MEQ/L Carbon Dioxide Level 27.8 MEQ/L Anion Gap 7 MEQ/L Blood Urea Nitrogen 16 MG/DL Creatinine 0.59 MG/DL Estimat Glomerular Filtration 141 ML/MIN Rate Random Glucose 88 MG/DL Calcium Level 8.8 MG/DL Objective Remarks General: No acute distress. Trach. Heart: Regular rate and rhythm. No murmur. Lungs: Clear to auscultation bilaterally. No wheezes, rales, or rhonchi. Breathing is nonlabored. Abdomen: Soft, nontender, nondistended. PEG tube in place - C/D/I Extremities: No lower extremity edema. No calf tenderness. Psych: Alert and oriented. Nonverbal. Medications and IVs Current Medications Medications (Trade) Dose Ordered Sig/Darryl Route Start Time Stop Time Status Last Admin (NS Flush) 2 ml UNSCH PRN FLUSH 05/01/16 15:15 05/21/16 13:19 (NS Flush) 2 ml BID FLUSH 05/01/16 21:00 06/12/16 09:48 (Zofran Inj) 4 mg Q6H PRN IVP 05/01/16 15:15 05/29/16 13:46 (Reglan Inj) 5 mg Q8H PRN IV PUSH 05/07/16 22:15 06/05/16 20:56 (Colace) 100 mg TID PO 05/08/16 09:00 06/12/16 09:47 (Habitrol 7 Mg Patch.24 Hr) 1 patch DAILY TD 05/09/16 16:00 06/12/16 09:48 Miscellaneous Information 1 HS TD 05/09/16 21:00 06/11/16 21:00 (Robitussin Dm 200-20 Mg/10 ml Liq) 10 ml Q6H PRN PO 05/11/16 17:00 05/13/16 04:13 (Mucinex Er) 600 mg BID PO 05/11/16 21:30 06/12/16 09:47 (Tessalon) 200 mg TID PRN PO 05/11/16 21:30 05/14/16 20:39 (Tylenol) 650 mg Q6HR PRN PO 05/11/16 21:30 05/17/16 13:06 (Protonix) 40 mg DAILY PO 05/12/16 09:00 06/12/16 09:47 (Lovenox Inj) 40 mg Q24H SQ 05/12/16 06:00 06/12/16 03:20 (Tylenol) 650 mg Q6H PRN PO 05/13/16 11:15 (Morphine Inj) 4 mg Q3H PRN IV 05/13/16 11:15 06/03/16 00:28 (Narcan Inj) 0.4 mg UNSCH PRN IV 05/13/16 11:15 (Oramorph Sr) 15 mg Q12HR PO 05/25/16 21:00 06/12/16 09:47 (Percocet 5-325 Mg) 1 tab Q4H PRN PO 05/27/16 13:15 06/05/16 04:28 (Percocet 10-325 Mg) 1 tab Q4H PRN PO 05/27/16 13:15 06/12/16 08:05 Furosemide 40 mg 40 mg Q7D IV PUSH 05/27/16 12:00 06/17/16 12:59 06/10/16 13:08 (Decadron Inj/NS Inj) 52.5 ml @ 210 mls/hr Q7D IV 05/27/16 12:00 06/17/16 12:14 06/10/16 13:08 Mannitol 12.5 gm 12.5 gm Q7D IV 05/27/16 12:30 06/17/16 13:31 06/10/16 13:26 (Platinol Inj/NS Inj) 225 ml @ 225 mls/hr Q7D IV 05/27/16 13:00 06/17/16 13:59 06/10/16 15:09 Granisetron HCl 1 mg 1 mg Q7D IV 05/27/16 12:00 06/17/16 12:01 06/10/16 13:08 Potassium Chloride 10 meq/ Sodium Chloride 505 ml @ 500 mls/hr Q1H1M IV 06/17/16 12:00 06/17/16 13:00 Potassium Chloride 10 meq/ Dextrose/Sodium Chloride 505 ml @ 500 mls/hr Q1H1M IV 06/17/16 13:00 06/17/16 14:00 (KCl Inj/ Magnesium Sulfate Inj/D5W-1/2 NS 1000 ml Inj) 1,007 ml @ 500 mls/hr Q2H1M IV 06/17/16 14:00 06/17/16 16:00 (Restoril) 15 mg HS PRN PO 05/28/16 21:00 06/11/16 21:52 (Eldecort 2.5% Cream) 1 applic BID TOPICAL 06/01/16 12:15 06/12/16 09:48 (Micatin 2% Cream) 1 applic Q12HR TOPICAL 06/02/16 21:00 06/12/16 09:48 (Adenike-Colace) 1 tab DAILY PO 06/05/16 12:00 06/12/16 09:47 A/P Assessment and Plan 1. Laryngeal Mass Invasive Squamous Cell Carcinoma, certified peer specialist following, ENT, General senior payroll specialist Status post Biopsy of the mass, Status post Tracheostomy, continue Chemotherapy. as per habilitation training specialist to remove tracheostomy tube when possible, Radiation therapy. PEG tube placed on 05/06/16, Dietitian following. Speech therapy following. decreased cannula size by habilitation training specialist 2. COPD continue Bronchodilator, Mucolytic and Incentive spirometry. Stable. 3. Tobacco dependence Strongly recommended to stop smoking 4. Pneumonia HCAP bilateral bases infiltrates. on Vancomycin and Cefepime Pseudomonas Aeruginosa fluorescens. Discontinued Vancomycin. discontinued Cefepime and switch to Levaquin. patient improving clinically continue afebrile removed Levaquin 5. Hemoptysis No new issues. As per Peat Shredder Tender the patient will continue treatment In House. DVT prophylaxis with Lovenox. chemotherapy and Radiation therapy. //PPx: Lovenox. Discharge Planning Awaiting final by habilitation training specialist and Oncology for discharge quality control systems manager for discharge. Jarred Funes MD Jun 12, 2016 10:21 Jarred Funes MD Jun 12, 2016 10:21
--- NOTE | 2016-06-12 16:47 | HHI.PR ---
Subjective Remarks ALERT NO SOB TRACH changed started therapy Objective Vital Signs Date Time Temp Pulse Resp B/P Pulse Ox O2 Delivery O2 Flow Rate FiO2 06/12/16 12:15 97.4 76 16 104/79 96 06/12/16 10:42 95 21 06/12/16 09:45 97.9 81 16 117/85 97 06/12/16 04:00 97.0 72 18 108/67 96 06/12/16 00:00 97.4 75 18 124/70 96 06/11/16 20:00 97.5 80 18 119/83 96 06/11/16 17:57 97 21 I/O 06/11/16 06/11/16 06/11/16 06/12/16 06/12/16 06/12/16 07:00 15:00 23:00 07:00 15:00 23:00 Intake Total 240 ml 960 ml 480 ml 240 ml Balance 240 ml 960 ml 480 ml 240 ml Intake Oral 240 ml 960 ml 480 ml 240 ml # Voids 1 3 3 1 Result Diagram: 06/08/16 0708 06/08/16 0708 Procedures 05/05/16 Laryngeal mass biopsy 05/05/16 tracheostomy Objective Remarks GENERAL: SKIN: Warm and dry. HEAD: Atraumatic. Normocephalic. EYES: Pupils equal and round. No scleral icterus. No injection or drainage. ENT: No nasal bleeding or discharge. Mucous membranes pink and moist. NECK: Trachea midline. No JVD. TRACH IN PLACE CARDIOVASCULAR: Regular rate and rhythm. RESPIRATORY: No accessory muscle use. Clear to auscultation. Breath sounds equal bilaterally. GASTROINTESTINAL: Abdomen soft, non-tender, nondistended. Hepatic and splenic margins not palpable. MUSCULOSKELETAL: Extremities without clubbing, cyanosis, or edema. No obvious deformities. NEUROLOGICAL: Awake and alert. No obvious cranial nerve deficits. Motor grossly within normal limits. Five out of 5 muscle strength in the arms and legs. Normal speech. PSYCHIATRIC: Appropriate mood and affect; insight and judgment normal. Assessment and Plan Assessment and Plan LARYNGEAL CA S/P TRACH PLAN PULM TOILET REMOVE TRACHEOSTOMY WHEN POSSIBLE Kamran Andrew MD Jun 12, 2016 16:47
[2016-06-12] MEDS: METOCLOPRAMIDE HCL 10 MG/2 ML VIAL IV PUSH PRN (17:41)
[2016-06-12] MEDS: TEMAZEPAM 15 MG CAP PO PRN (22:14)
[2016-06-12] MEDS: oxyCODONE/ACETAMINOPHEN 5 MG/325 MG TAB PO PRN (22:39)
[2016-06-12] MEDS: REMOVE OLD NICODERM (NICOTINE) PATCH TD SCH (22:39)
[2016-06-13] VITALS (7 sets, daily range): BP systolic 98–144; BP diastolic 60–79; PULSE 72–81; RESP 16–18; TEMP 97.2–97.5; O2SAT 95–99
[2016-06-13] MEDS: oxyCODONE/ACETAMINOPHEN 10 MG/325 MG TAB PO PRN ×5 (04:26→22:23)
[2016-06-13] MEDS: ENOXAPARIN SODIUM 40 MG/0.4 ML SYRINGE SQ SCH (04:26)
[2016-06-13] MEDS: guaiFENesin E.R. 600 MG TAB PO SCH ×2 (08:33→20:54)
[2016-06-13] MEDS: PANTOPRAZOLE SOD 40 MG DELAYED RELEASE TAB PO SCH (08:34)
[2016-06-13] MEDS: NICOTINE 7 MG/24 HR PATCH TD SCH (08:34)
[2016-06-13] MEDS: MORPHINE SULFATE 15 MG CONTROLLED RELEASE TAB PO SCH ×2 (08:34→20:55)
[2016-06-13] MEDS: DOCUSATE SODIUM 100 MG CAP PO SCH ×3 (08:34→18:04)
[2016-06-13] MEDS: DOCUSATE SODIUM 50 MG/SENNA 8.6 MG TAB PO SCH (08:34)
[2016-06-13] MEDS: HYDROCORTISONE 2.5% CREAM 30 GM TOPICAL SCH ×2 (08:35→21:00)
[2016-06-13] MEDS: MICONAZOLE NITRATE 2% CREAM 15 GM TOPICAL SCH ×2 (08:35→21:00)
[2016-06-13] MEDS: SODIUM CHLORIDE 0.9% FLUSH 5 ML FLUSH FLUSH SCH ×2 (08:35→21:00)
--- NOTE | 2016-06-13 08:42 | HHI.PR ---
Subjective Remarks Patient stable seen in his bedroom, and discussed with nurse Miss Morris due to difficulties with his Insurance, he will need to receive his treatment in House. no nausea, vomit or diarrhea Objective Vital Signs Date Time Temp Pulse Resp B/P Pulse Ox O2 Delivery O2 Flow Rate FiO2 06/13/16 04:30 97.2 74 16 116/64 95 06/13/16 00:00 97.4 77 16 112/65 96 06/12/16 22:41 107/62 06/12/16 22:01 97 Trach Collar 28 06/12/16 20:00 99.0 82 16 97/69 94 06/12/16 16:00 97.0 76 16 100/64 96 06/12/16 12:15 97.4 76 16 104/79 96 06/12/16 10:42 95 21 06/12/16 09:45 97.9 81 16 117/85 97 I/O 06/12/16 06/12/16 06/12/16 06/13/16 06/13/16 06/13/16 07:00 15:00 23:00 07:00 15:00 23:00 Intake Total 240 ml 720 ml 300 ml 250 ml Balance 240 ml 720 ml 300 ml 250 ml Intake Oral 240 ml 720 ml 300 ml 250 ml # Voids 1 4 1 1 # Bowel Movements 0 0 Imaging Last Impressions Chest X-Ray 05/10/16 0000 Signed Impressions: Service Date/Time: Tuesday, May 10, 2016 11:23 - CONCLUSION: Atelectasis at the lung bases. No other acute cardiopulmonary disease identified. Suhail Calderon MD Gastrostomy Tube Placement 05/06/16 0000 Signed Impressions: Service Date/Time: Friday, May 06, 2016 13:15 - CONCLUSION: Uncomplicated gastrostomy tube placement as above. Fabian Blackwood Jr., MD Chest CT 05/03/16 0000 Signed Impressions: Service Date/Time: Tuesday, May 03, 2016 11:33 - CONCLUSION: 1. Emphysema and right upper lobe scarring. Scarring is mildly nodular but still most likely benign. Six-month followup noncontrast chest CT recommended. 2. No lymphadenopathy. 3. Coronary artery calcification. John Mcdonnell MD Abdomen/Pelvis CT 05/03/16 0000 Signed Impressions: Service Date/Time: Tuesday, May 03, 2016 11:33 - CONCLUSION: 1. No malignancy or other acute abnormality seen within the abdomen or pelvis. 2. Diverticulosis of the colon without acute inflammatory changes. 3. Atherosclerotic aorta. No aneurysm. John Mcdonnell MD Neck CT 05/01/16 0000 Signed Impressions: Service Date/Time: April 13:51 - CONCLUSION: 1. Large mass involving the larynx measuring 3.5 x 2.0 cm causing significant compromise to the airway. No adenopathy observed. Malignancy is felt most likely. 2. Severe emphysematous changes. 3. Areas of probable scarring involving the right lung apex. This is nodular in appearance in one area that is partially visualized. I suggest a CT of the thorax to further evaluate. Fabian Blackwood Jr., MD Procedures 05/05/16 Laryngeal mass biopsy 05/05/16 tracheostomy Other Results No new laboratory. Objective Remarks General: No acute distress. Trach. Heart: Regular rate and rhythm. No murmur. Lungs: Clear to auscultation bilaterally. No wheezes, rales, or rhonchi. Breathing is nonlabored. Abdomen: Soft, nontender, nondistended. PEG tube in place - C/D/I Extremities: No lower extremity edema. No calf tenderness. Psych: Alert and oriented. Nonverbal. Medications and IVs Current Medications Medications (Trade) Dose Ordered Sig/Darryl Route Start Time Stop Time Status Last Admin (NS Flush) 2 ml UNSCH PRN FLUSH 05/01/16 15:15 05/21/16 13:19 (NS Flush) 2 ml BID FLUSH 05/01/16 21:00 06/12/16 21:00 (Zofran Inj) 4 mg Q6H PRN IVP 05/01/16 15:15 05/29/16 13:46 (Reglan Inj) 5 mg Q8H PRN IV PUSH 05/07/16 22:15 06/12/16 17:41 (Colace) 100 mg TID PO 05/08/16 09:00 06/12/16 17:36 (Habitrol 7 Mg Patch.24 Hr) 1 patch DAILY TD 05/09/16 16:00 06/12/16 09:48 Miscellaneous Information 1 HS TD 05/09/16 21:00 06/12/16 22:39 (Robitussin Dm 200-20 Mg/10 ml Liq) 10 ml Q6H PRN PO 05/11/16 17:00 05/13/16 04:13 (Mucinex Er) 600 mg BID PO 05/11/16 21:30 06/12/16 22:10 (Tessalon) 200 mg TID PRN PO 05/11/16 21:30 05/14/16 20:39 (Tylenol) 650 mg Q6HR PRN PO 05/11/16 21:30 05/17/16 13:06 (Protonix) 40 mg DAILY PO 05/12/16 09:00 06/12/16 09:47 (Lovenox Inj) 40 mg Q24H SQ 05/12/16 06:00 06/13/16 04:26 (Tylenol) 650 mg Q6H PRN PO 05/13/16 11:15 06/13/16 06:17 (Morphine Inj) 4 mg Q3H PRN IV 05/13/16 11:15 06/03/16 00:28 (Narcan Inj) 0.4 mg UNSCH PRN IV 05/13/16 11:15 (Oramorph Sr) 15 mg Q12HR PO 05/25/16 21:00 06/12/16 22:10 (Percocet 5-325 Mg) 1 tab Q4H PRN PO 05/27/16 13:15 06/12/16 22:39 (Percocet 10-325 Mg) 1 tab Q4H PRN PO 05/27/16 13:15 06/13/16 04:26 Furosemide 40 mg 40 mg Q7D IV PUSH 05/27/16 12:00 06/17/16 12:59 06/10/16 13:08 (Decadron Inj/NS Inj) 52.5 ml @ 210 mls/hr Q7D IV 05/27/16 12:00 06/17/16 12:14 06/10/16 13:08 Mannitol 12.5 gm 12.5 gm Q7D IV 05/27/16 12:30 06/17/16 13:31 06/10/16 13:26 (Platinol Inj/NS Inj) 225 ml @ 225 mls/hr Q7D IV 05/27/16 13:00 06/17/16 13:59 06/10/16 15:09 Granisetron HCl 1 mg 1 mg Q7D IV 05/27/16 12:00 06/17/16 12:01 06/10/16 13:08 Potassium Chloride 10 meq/ Sodium Chloride 505 ml @ 500 mls/hr Q1H1M IV 06/17/16 12:00 06/17/16 13:00 Potassium Chloride 10 meq/ Dextrose/Sodium Chloride 505 ml @ 500 mls/hr Q1H1M IV 06/17/16 13:00 06/17/16 14:00 (KCl Inj/ Magnesium Sulfate Inj/D5W-1/2 NS 1000 ml Inj) 1,007 ml @ 500 mls/hr Q2H1M IV 06/17/16 14:00 06/17/16 16:00 (Restoril) 15 mg HS PRN PO 05/28/16 21:00 06/12/16 22:14 (Eldecort 2.5% Cream) 1 applic BID TOPICAL 06/01/16 12:15 06/12/16 22:11 (Micatin 2% Cream) 1 applic Q12HR TOPICAL 06/02/16 21:00 06/12/16 09:48 (Adenike-Colace) 1 tab DAILY PO 06/05/16 12:00 06/12/16 09:47 A/P Assessment and Plan 1. Laryngeal Mass Invasive Squamous Cell Carcinoma, technical specialist following, ENT, General seed and fertilizer specialist Status post Biopsy of the mass, Status post Tracheostomy, continue Chemotherapy. as per auto adjudication specialist to remove tracheostomy tube when possible, Radiation therapy. PEG tube placed on 05/06/16, Dietitian following. Speech therapy following. decreased cannula size by auto adjudication specialist 2. COPD continue Bronchodilator, Mucolytic and Incentive spirometry. Stable. 3. Tobacco dependence Strongly recommended to stop smoking 4. Pneumonia HCAP bilateral bases infiltrates. on Vancomycin and Cefepime Pseudomonas Aeruginosa fluorescens. Discontinued Vancomycin. discontinued Cefepime and switch to Levaquin. patient improving clinically continue afebrile removed Levaquin 5. Hemoptysis No new issues. As per Industrial Hygenist the patient will continue treatment In House. DVT prophylaxis with Lovenox. chemotherapy and Radiation therapy. No changes to Anterior assessment. //PPx: Lovenox. Discharge Planning Awaiting final by auto adjudication specialist and Oncology for discharge manager college for discharge. Jarred Funes MD Jun 13, 2016 08:42
--- NOTE | 2016-06-13 19:14 | HHI.PR ---
Subjective Remarks ALERT NO SOB TRACH changed started therapy Objective Vital Signs Date Time Temp Pulse Resp B/P Pulse Ox O2 Delivery O2 Flow Rate FiO2 06/13/16 16:00 97.3 80 18 108/68 96 06/13/16 12:00 97.2 76 18 104/68 96 06/13/16 08:44 99 21 06/13/16 08:00 97.4 72 16 98/60 98 06/13/16 04:30 97.2 74 16 116/64 95 06/13/16 00:00 97.4 77 16 112/65 96 06/12/16 22:41 107/62 06/12/16 22:01 97 Trach Collar 28 06/12/16 20:00 99.0 82 16 97/69 94 I/O 06/12/16 06/12/16 06/12/16 06/13/16 06/13/16 06/13/16 07:00 15:00 23:00 07:00 15:00 23:00 Intake Total 240 ml 720 ml 300 ml 250 ml 960 ml Balance 240 ml 720 ml 300 ml 250 ml 960 ml Intake Oral 240 ml 720 ml 300 ml 250 ml 960 ml # Voids 1 4 1 1 3 # Bowel Movements 0 0 1 Procedures 05/05/16 Laryngeal mass biopsy 05/05/16 tracheostomy Objective Remarks GENERAL: SKIN: Warm and dry. HEAD: Atraumatic. Normocephalic. EYES: Pupils equal and round. No scleral icterus. No injection or drainage. ENT: No nasal bleeding or discharge. Mucous membranes pink and moist. NECK: Trachea midline. No JVD. TRACH IN PLACE CARDIOVASCULAR: Regular rate and rhythm. RESPIRATORY: No accessory muscle use. Clear to auscultation. Breath sounds equal bilaterally. GASTROINTESTINAL: Abdomen soft, non-tender, nondistended. Hepatic and splenic margins not palpable. MUSCULOSKELETAL: Extremities without clubbing, cyanosis, or edema. No obvious deformities. NEUROLOGICAL: Awake and alert. No obvious cranial nerve deficits. Motor grossly within normal limits. Five out of 5 muscle strength in the arms and legs. Normal speech. PSYCHIATRIC: Appropriate mood and affect; insight and judgment normal. Assessment and Plan Assessment and Plan LARYNGEAL CA S/P TRACH PLAN PULM TOILET REMOVE TRACHEOSTOMY WHEN POSSIBLE Kamran Andrew MD Jun 13, 2016 19:14
[2016-06-13] MEDS: TEMAZEPAM 15 MG CAP PO PRN (20:54)
[2016-06-13] MEDS: REMOVE OLD NICODERM (NICOTINE) PATCH TD SCH (21:00)
[2016-06-14] VITALS (7 sets, daily range): BP systolic 107–120; BP diastolic 69–78; PULSE 70–85; RESP 15–18; TEMP 96.5–97.6; O2SAT 95–98
[2016-06-14] MEDS: oxyCODONE/ACETAMINOPHEN 10 MG/325 MG TAB PO PRN ×5 (04:18→21:22)
[2016-06-14] MEDS: ENOXAPARIN SODIUM 40 MG/0.4 ML SYRINGE SQ SCH (04:24)
[2016-06-14] MEDS: MICONAZOLE NITRATE 2% CREAM 15 GM TOPICAL SCH ×2 (07:04→21:00)
[2016-06-14] MEDS: SODIUM CHLORIDE 0.9% FLUSH 5 ML FLUSH FLUSH SCH ×2 (09:00→21:56)
[2016-06-14] MEDS: DOCUSATE SODIUM 50 MG/SENNA 8.6 MG TAB PO SCH (09:14)
[2016-06-14] MEDS: PANTOPRAZOLE SOD 40 MG DELAYED RELEASE TAB PO SCH (09:14)
[2016-06-14] MEDS: DOCUSATE SODIUM 100 MG CAP PO SCH ×3 (09:15→17:08)
[2016-06-14] MEDS: MORPHINE SULFATE 15 MG CONTROLLED RELEASE TAB PO SCH ×2 (09:16→21:19)
[2016-06-14] MEDS: guaiFENesin E.R. 600 MG TAB PO SCH ×2 (09:16→21:19)
[2016-06-14] MEDS: NICOTINE 7 MG/24 HR PATCH TD SCH (09:17)
[2016-06-14] MEDS: HYDROCORTISONE 2.5% CREAM 30 GM TOPICAL SCH ×2 (09:17→21:56)
--- NOTE | 2016-06-14 09:31 | HHI.PR ---
Subjective Remarks Patient stable seen in his bedroom continue treatment in House until finished. no nausea, vomit or diarrhea, no new issues. no complaint. Objective Vital Signs Date Time Temp Pulse Resp B/P Pulse Ox O2 Delivery O2 Flow Rate FiO2 06/14/16 08:52 96 21.00 06/14/16 08:00 96.7 70 15 112/78 96 06/14/16 04:00 97.6 83 18 115/70 95 06/14/16 00:00 97.0 71 17 110/69 97 06/13/16 20:00 97.5 81 18 144/79 96 06/13/16 16:00 97.3 80 18 108/68 96 06/13/16 12:00 97.2 76 18 104/68 96 I/O 06/13/16 06/13/16 06/13/16 06/14/16 06/14/16 06/14/16 07:00 15:00 23:00 07:00 15:00 23:00 Intake Total 250 ml 960 ml 480 ml 480 ml Balance 250 ml 960 ml 480 ml 480 ml Intake Oral 250 ml 960 ml 480 ml 480 ml # Voids 1 3 2 # Bowel Movements 0 1 Imaging Last Impressions Chest X-Ray 05/10/16 0000 Signed Impressions: Service Date/Time: Tuesday, May 10, 2016 11:23 - CONCLUSION: Atelectasis at the lung bases. No other acute cardiopulmonary disease identified. Suhail Calderon MD Gastrostomy Tube Placement 05/06/16 0000 Signed Impressions: Service Date/Time: Friday, May 06, 2016 13:15 - CONCLUSION: Uncomplicated gastrostomy tube placement as above. Fabian Blackwood Jr., MD Chest CT 05/03/16 0000 Signed Impressions: Service Date/Time: Tuesday, May 03, 2016 11:33 - CONCLUSION: 1. Emphysema and right upper lobe scarring. Scarring is mildly nodular but still most likely benign. Six-month followup noncontrast chest CT recommended. 2. No lymphadenopathy. 3. Coronary artery calcification. John Mcdonnell MD Abdomen/Pelvis CT 05/03/16 0000 Signed Impressions: Service Date/Time: Tuesday, May 03, 2016 11:33 - CONCLUSION: 1. No malignancy or other acute abnormality seen within the abdomen or pelvis. 2. Diverticulosis of the colon without acute inflammatory changes. 3. Atherosclerotic aorta. No aneurysm. John Mcdonnell MD Neck CT 05/01/16 0000 Signed Impressions: Service Date/Time: April 13:51 - CONCLUSION: 1. Large mass involving the larynx measuring 3.5 x 2.0 cm causing significant compromise to the airway. No adenopathy observed. Malignancy is felt most likely. 2. Severe emphysematous changes. 3. Areas of probable scarring involving the right lung apex. This is nodular in appearance in one area that is partially visualized. I suggest a CT of the thorax to further evaluate. Fabian Blackwood Jr., MD Procedures 05/05/16 Laryngeal mass biopsy 05/05/16 tracheostomy Other Results No new laboratory Objective Remarks General: No acute distress. Trach. Heart: Regular rate and rhythm. No murmur. Lungs: Clear to auscultation bilaterally. No wheezes, rales, or rhonchi. Breathing is nonlabored. Abdomen: Soft, nontender, nondistended. PEG tube in place - C/D/I Extremities: No lower extremity edema. No calf tenderness. Psych: Alert and oriented. Nonverbal. Medications and IVs Current Medications Medications (Trade) Dose Ordered Sig/Darryl Route Start Time Stop Time Status Last Admin (NS Flush) 2 ml UNSCH PRN FLUSH 05/01/16 15:15 05/21/16 13:19 (NS Flush) 2 ml BID FLUSH 05/01/16 21:00 06/14/16 09:00 (Zofran Inj) 4 mg Q6H PRN IVP 05/01/16 15:15 05/29/16 13:46 (Reglan Inj) 5 mg Q8H PRN IV PUSH 05/07/16 22:15 06/12/16 17:41 (Colace) 100 mg TID PO 05/08/16 09:00 06/14/16 09:15 (Habitrol 7 Mg Patch.24 Hr) 1 patch DAILY TD 05/09/16 16:00 06/14/16 09:17 Miscellaneous Information 1 HS TD 05/09/16 21:00 06/13/16 21:00 (Robitussin Dm 200-20 Mg/10 ml Liq) 10 ml Q6H PRN PO 05/11/16 17:00 05/13/16 04:13 (Mucinex Er) 600 mg BID PO 05/11/16 21:30 06/14/16 09:16 (Tessalon) 200 mg TID PRN PO 05/11/16 21:30 05/14/16 20:39 (Tylenol) 650 mg Q6HR PRN PO 05/11/16 21:30 05/17/16 13:06 (Protonix) 40 mg DAILY PO 05/12/16 09:00 06/14/16 09:14 (Lovenox Inj) 40 mg Q24H SQ 05/12/16 06:00 06/14/16 04:24 (Tylenol) 650 mg Q6H PRN PO 05/13/16 11:15 06/13/16 06:17 (Morphine Inj) 4 mg Q3H PRN IV 05/13/16 11:15 06/03/16 00:28 (Narcan Inj) 0.4 mg UNSCH PRN IV 05/13/16 11:15 (Oramorph Sr) 15 mg Q12HR PO 05/25/16 21:00 06/14/16 09:16 (Percocet 5-325 Mg) 1 tab Q4H PRN PO 05/27/16 13:15 06/12/16 22:39 (Percocet 10-325 Mg) 1 tab Q4H PRN PO 05/27/16 13:15 06/14/16 09:16 Furosemide 40 mg 40 mg Q7D IV PUSH 05/27/16 12:00 06/17/16 12:59 06/10/16 13:08 (Decadron Inj/NS Inj) 52.5 ml @ 210 mls/hr Q7D IV 05/27/16 12:00 06/17/16 12:14 06/10/16 13:08 Mannitol 12.5 gm 12.5 gm Q7D IV 05/27/16 12:30 06/17/16 13:31 06/10/16 13:26 (Platinol Inj/NS Inj) 225 ml @ 225 mls/hr Q7D IV 05/27/16 13:00 06/17/16 13:59 06/10/16 15:09 Granisetron HCl 1 mg 1 mg Q7D IV 05/27/16 12:00 06/17/16 12:01 06/10/16 13:08 Potassium Chloride 10 meq/ Sodium Chloride 505 ml @ 500 mls/hr Q1H1M IV 06/17/16 12:00 06/17/16 13:00 Potassium Chloride 10 meq/ Dextrose/Sodium Chloride 505 ml @ 500 mls/hr Q1H1M IV 06/17/16 13:00 06/17/16 14:00 (KCl Inj/ Magnesium Sulfate Inj/D5W-1/2 NS 1000 ml Inj) 1,007 ml @ 500 mls/hr Q2H1M IV 06/17/16 14:00 06/17/16 16:00 (Restoril) 15 mg HS PRN PO 05/28/16 21:00 06/13/16 20:54 (Eldecort 2.5% Cream) 1 applic BID TOPICAL 06/01/16 12:15 06/14/16 09:17 (Micatin 2% Cream) 1 applic Q12HR TOPICAL 06/02/16 21:00 06/12/16 09:48 (Adenike-Colace) 1 tab DAILY PO 06/05/16 12:00 06/14/16 09:14 A/P Assessment and Plan 1. Laryngeal Mass Invasive Squamous Cell Carcinoma, technical specialist following, ENT, General media reconciliation specialist Status post Biopsy of the mass, Status post Tracheostomy, continue Chemotherapy. as per email campaign specialist to remove tracheostomy tube when possible, Radiation therapy. PEG tube placed on 05/06/16, Dietitian following. Speech therapy following. decreased cannula size by email campaign specialist 2. COPD continue Bronchodilator, Mucolytic and Incentive spirometry. Stable. 3. Tobacco dependence Strongly recommended to stop smoking 4. Pneumonia HCAP bilateral bases infiltrates. on Vancomycin and Cefepime Pseudomonas Aeruginosa fluorescens. Discontinued Vancomycin. discontinued Cefepime and switch to Levaquin. patient improving clinically continue afebrile removed Levaquin 5. Hemoptysis No new issues. As per Instrument Repairer Steam Plant the patient will continue treatment In House. DVT prophylaxis with Lovenox. chemotherapy and Radiation therapy. No changes to Anterior assessment. //PPx: Lovenox. Discharge Planning Awaiting final by email campaign specialist and Oncology for discharge manager patient for discharge. Jarred Funes MD Jun 14, 2016 09:31
--- NOTE | 2016-06-14 17:47 | HHI.PR ---
Subjective Remarks ALERT NO SOB TRACH changed started therapy Objective Vital Signs Date Time Temp Pulse Resp B/P Pulse Ox O2 Delivery O2 Flow Rate FiO2 06/14/16 16:00 97.2 80 16 120/78 98 06/14/16 12:00 97.1 70 16 110/73 97 06/14/16 08:52 96 21.00 06/14/16 08:00 96.7 70 15 112/78 96 06/14/16 04:00 97.6 83 18 115/70 95 06/14/16 00:00 97.0 71 17 110/69 97 06/13/16 20:00 97.5 81 18 144/79 96 I/O 06/13/16 06/13/16 06/13/16 06/14/16 06/14/16 06/14/16 07:00 15:00 23:00 07:00 15:00 23:00 Intake Total 250 ml 960 ml 480 ml 480 ml 720 ml Balance 250 ml 960 ml 480 ml 480 ml 720 ml Intake Oral 250 ml 960 ml 480 ml 480 ml 720 ml # Voids 1 3 2 3 # Bowel Movements 0 1 1 Procedures 05/05/16 Laryngeal mass biopsy 05/05/16 tracheostomy Objective Remarks GENERAL: SKIN: Warm and dry. HEAD: Atraumatic. Normocephalic. EYES: Pupils equal and round. No scleral icterus. No injection or drainage. ENT: No nasal bleeding or discharge. Mucous membranes pink and moist. NECK: Trachea midline. No JVD. TRACH IN PLACE CARDIOVASCULAR: Regular rate and rhythm. RESPIRATORY: No accessory muscle use. Clear to auscultation. Breath sounds equal bilaterally. GASTROINTESTINAL: Abdomen soft, non-tender, nondistended. Hepatic and splenic margins not palpable. MUSCULOSKELETAL: Extremities without clubbing, cyanosis, or edema. No obvious deformities. NEUROLOGICAL: Awake and alert. No obvious cranial nerve deficits. Motor grossly within normal limits. Five out of 5 muscle strength in the arms and legs. Normal speech. PSYCHIATRIC: Appropriate mood and affect; insight and judgment normal. Assessment and Plan Assessment and Plan LARYNGEAL CA S/P TRACH PLAN PULM TOILET REMOVE TRACHEOSTOMY WHEN POSSIBLE Kamran Andrew MD Jun 14, 2016 17:47
[2016-06-14] MEDS: REMOVE OLD NICODERM (NICOTINE) PATCH TD SCH (21:22)
[2016-06-14] MEDS: TEMAZEPAM 15 MG CAP PO PRN (21:23)
[2016-06-14] MEDS: oxyCODONE/ACETAMINOPHEN 5 MG/325 MG TAB PO PRN (21:26)
[2016-06-15] VITALS (7 sets, daily range): BP systolic 101–119; BP diastolic 66–81; PULSE 68–109; RESP 14–18; TEMP 96.4–97.8; O2SAT 93–97
[2016-06-15] MEDS: oxyCODONE/ACETAMINOPHEN 5 MG/325 MG TAB PO PRN (04:59)
[2016-06-15] MEDS: ENOXAPARIN SODIUM 40 MG/0.4 ML SYRINGE SQ SCH (04:59)
--- NOTE | 2016-06-15 08:45 | HHI.PR ---
Subjective Remarks Patient stable seen in his bedroom continue treatment in House until finished. 06/15 Stable no Nausea, vomit or diarrhea, walking in the aisle no complaint. Objective Vital Signs Date Time Temp Pulse Resp B/P Pulse Ox O2 Delivery O2 Flow Rate FiO2 06/15/16 04:00 96.4 81 17 109/75 95 06/15/16 00:00 96.7 83 17 113/81 96 06/14/16 20:00 96.5 85 18 107/75 95 06/14/16 16:00 97.2 80 16 120/78 98 06/14/16 12:00 97.1 70 16 110/73 97 06/14/16 08:52 96 21.00 I/O 06/14/16 06/14/16 06/14/16 06/15/16 06/15/16 06/15/16 07:00 15:00 23:00 07:00 15:00 23:00 Intake Total 480 ml 720 ml 240 ml 480 ml Balance 480 ml 720 ml 240 ml 480 ml Intake Oral 480 ml 720 ml 240 ml 480 ml # Voids 2 3 1 3 # Bowel Movements 1 1 Imaging Last Impressions Chest X-Ray 05/10/16 0000 Signed Impressions: Service Date/Time: Tuesday, May 10, 2016 11:23 - CONCLUSION: Atelectasis at the lung bases. No other acute cardiopulmonary disease identified. Suhail Calderon MD Gastrostomy Tube Placement 05/06/16 0000 Signed Impressions: Service Date/Time: Friday, May 06, 2016 13:15 - CONCLUSION: Uncomplicated gastrostomy tube placement as above. Fabian Blackwood Jr., MD Chest CT 05/03/16 0000 Signed Impressions: Service Date/Time: Tuesday, May 03, 2016 11:33 - CONCLUSION: 1. Emphysema and right upper lobe scarring. Scarring is mildly nodular but still most likely benign. Six-month followup noncontrast chest CT recommended. 2. No lymphadenopathy. 3. Coronary artery calcification. John Mcdonnell MD Abdomen/Pelvis CT 05/03/16 0000 Signed Impressions: Service Date/Time: Tuesday, May 03, 2016 11:33 - CONCLUSION: 1. No malignancy or other acute abnormality seen within the abdomen or pelvis. 2. Diverticulosis of the colon without acute inflammatory changes. 3. Atherosclerotic aorta. No aneurysm. John Mcdonnell MD Neck CT 05/01/16 0000 Signed Impressions: Service Date/Time: April 13:51 - CONCLUSION: 1. Large mass involving the larynx measuring 3.5 x 2.0 cm causing significant compromise to the airway. No adenopathy observed. Malignancy is felt most likely. 2. Severe emphysematous changes. 3. Areas of probable scarring involving the right lung apex. This is nodular in appearance in one area that is partially visualized. I suggest a CT of the thorax to further evaluate. Fabian Blackwood Jr., MD Procedures 05/05/16 Laryngeal mass biopsy 05/05/16 tracheostomy Other Results No new laboratory performed. Objective Remarks General: No acute distress. Trach. Heart: Regular rate and rhythm. No murmur. Lungs: Clear to auscultation bilaterally. No wheezes, rales, or rhonchi. Breathing is nonlabored. Abdomen: Soft, nontender, nondistended. PEG tube in place - C/D/I Extremities: No lower extremity edema. No calf tenderness. Psych: Alert and oriented. Nonverbal. Medications and IVs Current Medications Medications (Trade) Dose Ordered Sig/Darryl Route Start Time Stop Time Status Last Admin (NS Flush) 2 ml UNSCH PRN FLUSH 05/01/16 15:15 05/21/16 13:19 (NS Flush) 2 ml BID FLUSH 05/01/16 21:00 06/14/16 21:56 (Zofran Inj) 4 mg Q6H PRN IVP 05/01/16 15:15 05/29/16 13:46 (Reglan Inj) 5 mg Q8H PRN IV PUSH 05/07/16 22:15 06/12/16 17:41 (Colace) 100 mg TID PO 05/08/16 09:00 06/14/16 17:08 (Habitrol 7 Mg Patch.24 Hr) 1 patch DAILY TD 05/09/16 16:00 06/14/16 09:17 Miscellaneous Information 1 HS TD 05/09/16 21:00 06/14/16 21:22 (Robitussin Dm 200-20 Mg/10 ml Liq) 10 ml Q6H PRN PO 05/11/16 17:00 05/13/16 04:13 (Mucinex Er) 600 mg BID PO 05/11/16 21:30 06/14/16 21:19 (Tessalon) 200 mg TID PRN PO 05/11/16 21:30 05/14/16 20:39 (Tylenol) 650 mg Q6HR PRN PO 05/11/16 21:30 05/17/16 13:06 (Protonix) 40 mg DAILY PO 05/12/16 09:00 06/14/16 09:14 (Lovenox Inj) 40 mg Q24H SQ 05/12/16 06:00 06/15/16 04:59 (Tylenol) 650 mg Q6H PRN PO 05/13/16 11:15 06/13/16 06:17 (Morphine Inj) 4 mg Q3H PRN IV 05/13/16 11:15 06/03/16 00:28 (Narcan Inj) 0.4 mg UNSCH PRN IV 05/13/16 11:15 (Oramorph Sr) 15 mg Q12HR PO 05/25/16 21:00 06/14/16 21:19 (Percocet 5-325 Mg) 1 tab Q4H PRN PO 05/27/16 13:15 06/15/16 04:59 (Percocet 10-325 Mg) 1 tab Q4H PRN PO 05/27/16 13:15 06/14/16 21:22 Furosemide 40 mg 40 mg Q7D IV PUSH 05/27/16 12:00 06/17/16 12:59 06/10/16 13:08 (Decadron Inj/NS Inj) 52.5 ml @ 210 mls/hr Q7D IV 05/27/16 12:00 06/17/16 12:14 06/10/16 13:08 Mannitol 12.5 gm 12.5 gm Q7D IV 05/27/16 12:30 06/17/16 13:31 06/10/16 13:26 (Platinol Inj/NS Inj) 225 ml @ 225 mls/hr Q7D IV 05/27/16 13:00 06/17/16 13:59 06/10/16 15:09 Granisetron HCl 1 mg 1 mg Q7D IV 05/27/16 12:00 06/17/16 12:01 06/10/16 13:08 Potassium Chloride 10 meq/ Sodium Chloride 505 ml @ 500 mls/hr Q1H1M IV 06/17/16 12:00 06/17/16 13:00 Potassium Chloride 10 meq/ Dextrose/Sodium Chloride 505 ml @ 500 mls/hr Q1H1M IV 06/17/16 13:00 06/17/16 14:00 (KCl Inj/ Magnesium Sulfate Inj/D5W-1/2 NS 1000 ml Inj) 1,007 ml @ 500 mls/hr Q2H1M IV 06/17/16 14:00 06/17/16 16:00 (Restoril) 15 mg HS PRN PO 05/28/16 21:00 06/14/16 21:23 (Eldecort 2.5% Cream) 1 applic BID TOPICAL 06/01/16 12:15 06/14/16 21:56 (Micatin 2% Cream) 1 applic Q12HR TOPICAL 06/02/16 21:00 06/12/16 09:48 (Adenike-Colace) 1 tab DAILY PO 06/05/16 12:00 06/14/16 09:14 A/P Assessment and Plan 1. Laryngeal Mass Invasive Squamous Cell Carcinoma, demolition specialist following, ENT, General medical reimbursement specialist Status post Biopsy of the mass, Status post Tracheostomy, continue Chemotherapy. as per oncology rep specialist to remove tracheostomy tube when possible, Radiation therapy. PEG tube placed on 05/06/16, Dietitian following. Speech therapy following. decreased cannula size by oncology rep specialist 2. COPD continue Bronchodilator, Mucolytic and Incentive spirometry. Stable. 3. Tobacco dependence Strongly recommended to stop smoking 4. Pneumonia HCAP bilateral bases infiltrates. on Vancomycin and Cefepime Pseudomonas Aeruginosa fluorescens. Discontinued Vancomycin. discontinued Cefepime and switch to Levaquin. patient improving clinically continue afebrile removed Levaquin 5. Hemoptysis No new issues. As per Supervisor Sawmill the patient will continue treatment In House. DVT prophylaxis with Lovenox. chemotherapy and Radiation therapy. No changes to Anterior assessment. //PPx: Lovenox. Discharge Planning Awaiting final by oncology rep specialist and Oncology for discharge manager of product for discharge. Jarred Funes MD Jun 15, 2016 08:45
[2016-06-15] MEDS: MICONAZOLE NITRATE 2% CREAM 15 GM TOPICAL SCH ×2 (09:00→21:00)
[2016-06-15] MEDS: SODIUM CHLORIDE 0.9% FLUSH 5 ML FLUSH FLUSH SCH ×2 (09:00→21:03)
[2016-06-15] MEDS: DOCUSATE SODIUM 100 MG CAP PO SCH ×3 (09:34→17:44)
[2016-06-15] MEDS: MORPHINE SULFATE 15 MG CONTROLLED RELEASE TAB PO SCH ×2 (09:35→21:02)
[2016-06-15] MEDS: guaiFENesin E.R. 600 MG TAB PO SCH ×2 (09:35→21:01)
[2016-06-15] MEDS: DOCUSATE SODIUM 50 MG/SENNA 8.6 MG TAB PO SCH (09:35)
[2016-06-15] MEDS: oxyCODONE/ACETAMINOPHEN 10 MG/325 MG TAB PO PRN ×4 (09:36→21:10)
[2016-06-15] MEDS: NICOTINE 7 MG/24 HR PATCH TD SCH (09:36)
[2016-06-15] MEDS: HYDROCORTISONE 2.5% CREAM 30 GM TOPICAL SCH ×2 (09:38→21:02)
[2016-06-15] MEDS: PANTOPRAZOLE SOD 40 MG DELAYED RELEASE TAB PO SCH (09:39)
--- NOTE | 2016-06-15 18:45 | HHI.PR ---
Subjective Remarks ALERT NO SOB TRACH changed started therapy Objective Vital Signs Date Time Temp Pulse Resp B/P Pulse Ox O2 Delivery O2 Flow Rate FiO2 06/15/16 16:00 96.8 75 14 114/77 96 06/15/16 12:00 97.0 68 16 107/72 95 06/15/16 09:53 97 21 06/15/16 08:00 96.6 73 14 101/70 93 06/15/16 04:00 96.4 81 17 109/75 95 06/15/16 00:00 96.7 83 17 113/81 96 06/14/16 20:00 96.5 85 18 107/75 95 I/O 06/14/16 06/14/16 06/14/16 06/15/16 06/15/16 06/15/16 07:00 15:00 23:00 07:00 15:00 23:00 Intake Total 480 ml 720 ml 240 ml 480 ml 240 ml 700 ml Balance 480 ml 720 ml 240 ml 480 ml 240 ml 700 ml Intake Oral 480 ml 720 ml 240 ml 480 ml 700 ml Tube Irrigant 240 ml # Voids 2 3 1 3 3 # Bowel Movements 1 1 2 Procedures 05/05/16 Laryngeal mass biopsy 05/05/16 tracheostomy Objective Remarks GENERAL: SKIN: Warm and dry. HEAD: Atraumatic. Normocephalic. EYES: Pupils equal and round. No scleral icterus. No injection or drainage. ENT: No nasal bleeding or discharge. Mucous membranes pink and moist. NECK: Trachea midline. No JVD. TRACH IN PLACE CARDIOVASCULAR: Regular rate and rhythm. RESPIRATORY: No accessory muscle use. Clear to auscultation. Breath sounds equal bilaterally. GASTROINTESTINAL: Abdomen soft, non-tender, nondistended. Hepatic and splenic margins not palpable. MUSCULOSKELETAL: Extremities without clubbing, cyanosis, or edema. No obvious deformities. NEUROLOGICAL: Awake and alert. No obvious cranial nerve deficits. Motor grossly within normal limits. Five out of 5 muscle strength in the arms and legs. Normal speech. PSYCHIATRIC: Appropriate mood and affect; insight and judgment normal. Assessment and Plan Assessment and Plan LARYNGEAL CA S/P TRACH PLAN PULM TOILET REMOVE TRACHEOSTOMY WHEN POSSIBLE Kamran Andrew MD Jun 15, 2016 18:45
[2016-06-15] MEDS: REMOVE OLD NICODERM (NICOTINE) PATCH TD SCH ×2 (21:00→21:11)
[2016-06-15] MEDS: TEMAZEPAM 15 MG CAP PO PRN (21:01)
[2016-06-16] VITALS (8 sets, daily range): BP systolic 95–127; BP diastolic 60–67; PULSE 72–83; RESP 16–20; TEMP 96.8–98.1; O2SAT 94–99
[2016-06-16] MEDS: oxyCODONE/ACETAMINOPHEN 10 MG/325 MG TAB PO PRN ×4 (04:47→21:03)
[2016-06-16] MEDS: ENOXAPARIN SODIUM 40 MG/0.4 ML SYRINGE SQ SCH (04:47)
[2016-06-16] MEDS: DOCUSATE SODIUM 100 MG CAP PO SCH ×3 (08:17→18:00)
[2016-06-16] MEDS: guaiFENesin E.R. 600 MG TAB PO SCH ×2 (08:17→21:03)
[2016-06-16] MEDS: DOCUSATE SODIUM 50 MG/SENNA 8.6 MG TAB PO SCH (08:17)
[2016-06-16] MEDS: PANTOPRAZOLE SOD 40 MG DELAYED RELEASE TAB PO SCH (08:17)
[2016-06-16] MEDS: NICOTINE 7 MG/24 HR PATCH TD SCH (08:18)
[2016-06-16] MEDS: MORPHINE SULFATE 15 MG CONTROLLED RELEASE TAB PO SCH ×3 (08:18→21:03)
[2016-06-16] MEDS: SODIUM CHLORIDE 0.9% FLUSH 5 ML FLUSH FLUSH SCH ×2 (08:19→21:00)
[2016-06-16] MEDS: MICONAZOLE NITRATE 2% CREAM 15 GM TOPICAL SCH ×2 (08:20→21:00)
[2016-06-16] MEDS: HYDROCORTISONE 2.5% CREAM 30 GM TOPICAL SCH ×2 (08:20→21:07)
--- NOTE | 2016-06-16 11:35 | HHI.PR ---
Subjective Remarks Patient stable seen in his bedroom continue treatment in House until finished. 06/16 No new issues, talkative, denies chest pain, no nausea, vomit or diarrhea. good activity. Objective Vital Signs Date Time Temp Pulse Resp B/P Pulse Ox O2 Delivery O2 Flow Rate FiO2 06/16/16 07:30 97.2 77 20 108/65 95 06/16/16 05:47 18 06/16/16 04:00 97.0 78 18 111/64 99 06/16/16 00:00 97.8 83 18 95/60 95 06/15/16 22:10 18 06/15/16 20:00 97.8 109 18 119/66 96 06/15/16 16:00 96.8 75 14 114/77 96 06/15/16 12:00 97.0 68 16 107/72 95 I/O 06/15/16 06/15/16 06/15/16 06/16/16 06/16/16 06/16/16 07:00 15:00 23:00 07:00 15:00 23:00 Intake Total 480 ml 240 ml 1180 ml 480 ml Balance 480 ml 240 ml 1180 ml 480 ml Intake Oral 480 ml 1180 ml 480 ml Tube Irrigant 240 ml # Voids 3 4 2 # Bowel Movements 1 3 0 Imaging Last Impressions Chest X-Ray 05/10/16 0000 Signed Impressions: Service Date/Time: Tuesday, May 10, 2016 11:23 - CONCLUSION: Atelectasis at the lung bases. No other acute cardiopulmonary disease identified. Suhail Calderon MD Gastrostomy Tube Placement 05/06/16 0000 Signed Impressions: Service Date/Time: Friday, May 06, 2016 13:15 - CONCLUSION: Uncomplicated gastrostomy tube placement as above. Fabian Blackwood Jr., MD Chest CT 05/03/16 0000 Signed Impressions: Service Date/Time: Tuesday, May 03, 2016 11:33 - CONCLUSION: 1. Emphysema and right upper lobe scarring. Scarring is mildly nodular but still most likely benign. Six-month followup noncontrast chest CT recommended. 2. No lymphadenopathy. 3. Coronary artery calcification. John Mcdonnell MD Abdomen/Pelvis CT 05/03/16 0000 Signed Impressions: Service Date/Time: Tuesday, May 03, 2016 11:33 - CONCLUSION: 1. No malignancy or other acute abnormality seen within the abdomen or pelvis. 2. Diverticulosis of the colon without acute inflammatory changes. 3. Atherosclerotic aorta. No aneurysm. John Mcdonnell MD Neck CT 05/01/16 0000 Signed Impressions: Service Date/Time: April 13:51 - CONCLUSION: 1. Large mass involving the larynx measuring 3.5 x 2.0 cm causing significant compromise to the airway. No adenopathy observed. Malignancy is felt most likely. 2. Severe emphysematous changes. 3. Areas of probable scarring involving the right lung apex. This is nodular in appearance in one area that is partially visualized. I suggest a CT of the thorax to further evaluate. Fabian Blackwood Jr., MD Procedures 05/05/16 Laryngeal mass biopsy 05/05/16 tracheostomy Other Results No new laboratory. Objective Remarks General: No acute distress. Trach. Heart: Regular rate and rhythm. No murmur. Lungs: Clear to auscultation bilaterally. No wheezes, rales, or rhonchi. Breathing is nonlabored. Abdomen: Soft, nontender, nondistended. PEG tube in place - C/D/I Extremities: No lower extremity edema. No calf tenderness. Psych: Alert and oriented. Nonverbal. Medications and IVs Current Medications Medications (Trade) Dose Ordered Sig/Darryl Route Start Time Stop Time Status Last Admin (NS Flush) 2 ml UNSCH PRN FLUSH 05/01/16 15:15 05/21/16 13:19 (NS Flush) 2 ml BID FLUSH 05/01/16 21:00 06/16/16 08:19 (Zofran Inj) 4 mg Q6H PRN IVP 05/01/16 15:15 05/29/16 13:46 (Reglan Inj) 5 mg Q8H PRN IV PUSH 05/07/16 22:15 06/12/16 17:41 (Colace) 100 mg TID PO 05/08/16 09:00 06/16/16 08:17 (Habitrol 7 Mg Patch.24 Hr) 1 patch DAILY TD 05/09/16 16:00 06/16/16 08:18 Miscellaneous Information 1 HS TD 05/09/16 21:00 06/15/16 21:11 (Robitussin Dm 200-20 Mg/10 ml Liq) 10 ml Q6H PRN PO 05/11/16 17:00 05/13/16 04:13 (Mucinex Er) 600 mg BID PO 05/11/16 21:30 06/16/16 08:17 (Tessalon) 200 mg TID PRN PO 05/11/16 21:30 05/14/16 20:39 (Tylenol) 650 mg Q6HR PRN PO 05/11/16 21:30 05/17/16 13:06 (Protonix) 40 mg DAILY PO 05/12/16 09:00 06/16/16 08:17 (Lovenox Inj) 40 mg Q24H SQ 05/12/16 06:00 06/16/16 04:47 (Tylenol) 650 mg Q6H PRN PO 05/13/16 11:15 06/13/16 06:17 (Morphine Inj) 4 mg Q3H PRN IV 05/13/16 11:15 06/03/16 00:28 (Narcan Inj) 0.4 mg UNSCH PRN IV 05/13/16 11:15 (Oramorph Sr) 15 mg Q12HR PO 05/25/16 21:00 06/16/16 08:18 (Percocet 5-325 Mg) 1 tab Q4H PRN PO 05/27/16 13:15 06/15/16 04:59 (Percocet 10-325 Mg) 1 tab Q4H PRN PO 05/27/16 13:15 06/16/16 04:47 Furosemide 40 mg 40 mg Q7D IV PUSH 05/27/16 12:00 06/17/16 12:59 06/10/16 13:08 (Decadron Inj/NS Inj) 52.5 ml @ 210 mls/hr Q7D IV 05/27/16 12:00 06/17/16 12:14 06/10/16 13:08 Mannitol 12.5 gm 12.5 gm Q7D IV 05/27/16 12:30 06/17/16 13:31 06/10/16 13:26 (Platinol Inj/NS Inj) 225 ml @ 225 mls/hr Q7D IV 05/27/16 13:00 06/17/16 13:59 06/10/16 15:09 Granisetron HCl 1 mg 1 mg Q7D IV 05/27/16 12:00 06/17/16 12:01 06/10/16 13:08 Potassium Chloride 10 meq/ Sodium Chloride 505 ml @ 500 mls/hr Q1H1M IV 06/17/16 12:00 06/17/16 13:00 Potassium Chloride 10 meq/ Dextrose/Sodium Chloride 505 ml @ 500 mls/hr Q1H1M IV 06/17/16 13:00 06/17/16 14:00 (KCl Inj/ Magnesium Sulfate Inj/D5W-1/2 NS 1000 ml Inj) 1,007 ml @ 500 mls/hr Q2H1M IV 06/17/16 14:00 06/17/16 16:00 (Restoril) 15 mg HS PRN PO 05/28/16 21:00 06/15/16 21:01 (Eldecort 2.5% Cream) 1 applic BID TOPICAL 06/01/16 12:15 06/16/16 08:20 (Micatin 2% Cream) 1 applic Q12HR TOPICAL 06/02/16 21:00 06/16/16 08:20 (Adenike-Colace) 1 tab DAILY PO 06/05/16 12:00 06/16/16 08:17 A/P Assessment and Plan 1. Laryngeal Mass Invasive Squamous Cell Carcinoma, senior training specialist following, ENT, General facilities specialist Status post Biopsy of the mass, Status post Tracheostomy, continue Chemotherapy. as per insurance verification specialist to remove tracheostomy tube when possible, Radiation therapy. PEG tube placed on 05/06/16, Dietitian following. Downsized Tracheostomy cannula by insurance verification specialist. continue Pulmonary Toilet today he will have 18th radiation treatment and has already three Chemotherapy treatment. 2. COPD continue Bronchodilator, Mucolytic and Incentive spirometry. Stable. 3. Tobacco dependence Strongly recommended to stop smoking 4. Pneumonia HCAP bilateral bases infiltrates. on Vancomycin and Cefepime Pseudomonas Aeruginosa fluorescens. at the end treated with Levaquin. 5. Hemoptysis No new issues. As per Bicycle Technician the patient will continue treatment In House. DVT prophylaxis with Lovenox. chemotherapy and Radiation therapy. No changes to Anterior assessment. //PPx: Lovenox. Discharge Planning Awaiting final by insurance verification specialist and Oncology for discharge manager video games for discharge. Jarred Funes MD Jun 16, 2016 11:35
--- NOTE | 2016-06-16 15:41 | HHI.PR ---
Subjective Remarks ALERT NO SOB TRACH changed started therapy Objective Vital Signs Date Time Temp Pulse Resp B/P Pulse Ox O2 Delivery O2 Flow Rate FiO2 06/16/16 13:32 98 21 06/16/16 11:50 97.1 72 20 125/67 98 06/16/16 07:30 97.2 77 20 108/65 95 06/16/16 05:47 18 06/16/16 04:00 97.0 78 18 111/64 99 06/16/16 00:00 97.8 83 18 95/60 95 06/15/16 22:10 18 06/15/16 20:00 97.8 109 18 119/66 96 06/15/16 16:00 96.8 75 14 114/77 96 I/O 06/15/16 06/15/16 06/15/16 06/16/16 06/16/16 06/16/16 07:00 15:00 23:00 07:00 15:00 23:00 Intake Total 480 ml 240 ml 1180 ml 480 ml Balance 480 ml 240 ml 1180 ml 480 ml Intake Oral 480 ml 1180 ml 480 ml Tube Irrigant 240 ml # Voids 3 4 2 # Bowel Movements 1 3 0 Procedures 05/05/16 Laryngeal mass biopsy 05/05/16 tracheostomy Objective Remarks GENERAL: SKIN: Warm and dry. HEAD: Atraumatic. Normocephalic. EYES: Pupils equal and round. No scleral icterus. No injection or drainage. ENT: No nasal bleeding or discharge. Mucous membranes pink and moist. NECK: Trachea midline. No JVD. TRACH IN PLACE CARDIOVASCULAR: Regular rate and rhythm. RESPIRATORY: No accessory muscle use. Clear to auscultation. Breath sounds equal bilaterally. GASTROINTESTINAL: Abdomen soft, non-tender, nondistended. Hepatic and splenic margins not palpable. MUSCULOSKELETAL: Extremities without clubbing, cyanosis, or edema. No obvious deformities. NEUROLOGICAL: Awake and alert. No obvious cranial nerve deficits. Motor grossly within normal limits. Five out of 5 muscle strength in the arms and legs. Normal speech. PSYCHIATRIC: Appropriate mood and affect; insight and judgment normal. Assessment and Plan Assessment and Plan LARYNGEAL CA S/P TRACH PLAN PULM TOILET REMOVE TRACHEOSTOMY WHEN POSSIBLE Kamran Andrew MD Jun 16, 2016 15:41
[2016-06-16] MEDS: TEMAZEPAM 15 MG CAP PO PRN (21:03)
[2016-06-16] MEDS: REMOVE OLD NICODERM (NICOTINE) PATCH TD SCH (21:11)
[2016-06-17] MEDS: oxyCODONE/ACETAMINOPHEN 10 MG/325 MG TAB PO PRN ×4 (03:15→23:35)
[2016-06-17 04:00] VITALS: BP 137/79; PULSE 89; RESP 18; TEMP 97; O2SAT 96
[2016-06-17 05:53] LABS: BASOPHIL % 0.7 % (0.0-2.0); EOSINOPHIL # 0.1 TH/MM3 (0-0.4); EOSINOPHIL % 2.8 % (0.0-4.0); HEMATOCRIT 33.3 % (39.0-51.0); HEMO FLAGS DIFF FINAL; LYMPH % 11.9 % (9.0-44.0); LYMPHOCYTE # 0.5 TH/MM3 (1.0-4.8); MEAN CELL VOLUME 90.6 FL (80.0-100.0); MEAN CORPUSCULAR HEMOGLOBIN 31.5 PG (27.0-34.0); MEAN CORPUSCULAR HGB CONC 34.8 % (32.0-36.0); MONO % 11.6 % (0.0-8.0); PLATELET COUNT 128 TH/MM3 (150-450); RED BLOOD COUNT 3.67 MIL/MM3 (4.50-5.90); WHITE BLOOD COUNT 4.1 TH/MM3 (4.0-11.0)
[2016-06-17] MEDS: ENOXAPARIN SODIUM 40 MG/0.4 ML SYRINGE SQ SCH (06:11)
[2016-06-17 06:20] LABS: BICARBONATE 27.7 MEQ/L (21.0-32.0); POTASSIUM 4.2 MEQ/L (3.5-5.1)
[2016-06-17] MEDS: PANTOPRAZOLE SOD 40 MG DELAYED RELEASE TAB PO SCH (07:55)
[2016-06-17] MEDS: DOCUSATE SODIUM 100 MG CAP PO SCH ×3 (07:55→16:46)
[2016-06-17] MEDS: guaiFENesin E.R. 600 MG TAB PO SCH ×2 (07:56→20:49)
[2016-06-17] MEDS: NICOTINE 7 MG/24 HR PATCH TD SCH (07:56)
[2016-06-17] MEDS: HYDROCORTISONE 2.5% CREAM 30 GM TOPICAL SCH ×2 (07:56→20:52)
[2016-06-17] MEDS: DOCUSATE SODIUM 50 MG/SENNA 8.6 MG TAB PO SCH (07:56)
[2016-06-17] MEDS: MORPHINE SULFATE 15 MG CONTROLLED RELEASE TAB PO SCH (07:56)
[2016-06-17] MEDS: SODIUM CHLORIDE 0.9% FLUSH 5 ML FLUSH FLUSH SCH ×2 (07:56→20:51)
[2016-06-17] MEDS: MICONAZOLE NITRATE 2% CREAM 15 GM TOPICAL SCH ×2 (07:57→20:53)
[2016-06-17 08:00] VITALS: BP 129/73; PULSE 71; RESP 16; TEMP 97.5; O2SAT 97
--- NOTE | 2016-06-17 08:08 | HHI.PR ---
Subjective Remarks Patient stable seen in his bedroom continue treatment in House until finished. 06/16 No new issues, talkative, denies chest pain, good activity. 06/17 No Nausea, vomit or diarrhea, had his Fifth treatment of Chemotherapy and his Radiation treatment. Objective Vital Signs Date Time Temp Pulse Resp B/P Pulse Ox O2 Delivery O2 Flow Rate FiO2 06/17/16 04:15 16 06/17/16 04:00 97.0 89 18 137/79 96 06/16/16 22:00 18 06/16/16 21:24 95 21 06/16/16 20:00 96.8 83 16 127/64 94 06/16/16 15:50 98.1 72 20 104/61 95 06/16/16 13:32 98 21 06/16/16 11:50 97.1 72 20 125/67 98 I/O 06/16/16 06/16/16 06/16/16 06/17/16 06/17/16 06/17/16 07:00 15:00 23:00 07:00 15:00 23:00 Intake Total 480 ml 837 ml 480 ml 480 ml Balance 480 ml 837 ml 480 ml 480 ml Intake Oral 480 ml 837 ml 480 ml 480 ml # Voids 2 3 2 2 # Bowel Movements 0 1 Result Diagram: 06/17/16 0525 06/17/16 0525 Imaging Last Impressions Chest X-Ray 05/10/16 0000 Signed Impressions: Service Date/Time: Tuesday, May 10, 2016 11:23 - CONCLUSION: Atelectasis at the lung bases. No other acute cardiopulmonary disease identified. Suhail Calderon MD Gastrostomy Tube Placement 05/06/16 0000 Signed Impressions: Service Date/Time: Friday, May 06, 2016 13:15 - CONCLUSION: Uncomplicated gastrostomy tube placement as above. Fabian Blackwood Jr., MD Chest CT 05/03/16 0000 Signed Impressions: Service Date/Time: Tuesday, May 03, 2016 11:33 - CONCLUSION: 1. Emphysema and right upper lobe scarring. Scarring is mildly nodular but still most likely benign. Six-month followup noncontrast chest CT recommended. 2. No lymphadenopathy. 3. Coronary artery calcification. John Mcdonnell MD Abdomen/Pelvis CT 05/03/16 0000 Signed Impressions: Service Date/Time: Tuesday, May 03, 2016 11:33 - CONCLUSION: 1. No malignancy or other acute abnormality seen within the abdomen or pelvis. 2. Diverticulosis of the colon without acute inflammatory changes. 3. Atherosclerotic aorta. No aneurysm. John Mcdonnell MD Neck CT 05/01/16 0000 Signed Impressions: Service Date/Time: April 13:51 - CONCLUSION: 1. Large mass involving the larynx measuring 3.5 x 2.0 cm causing significant compromise to the airway. No adenopathy observed. Malignancy is felt most likely. 2. Severe emphysematous changes. 3. Areas of probable scarring involving the right lung apex. This is nodular in appearance in one area that is partially visualized. I suggest a CT of the thorax to further evaluate. Fabian Blackwood Jr., MD Procedures 05/05/16 Laryngeal mass biopsy 05/05/16 tracheostomy Other Results Laboratory Tests Test 06/17/16 05:25 White Blood Count 4.1 TH/MM3 Red Blood Count 3.67 MIL/MM3 Hemoglobin 11.6 GM/DL Hematocrit 33.3 % Mean Corpuscular Volume 90.6 FL Mean Corpuscular Hemoglobin 31.5 PG Mean Corpuscular Hemoglobin 34.8 % Concent Red Cell Distribution Width 14.0 % Platelet Count 128 TH/MM3 Mean Platelet Volume 6.5 FL Neutrophils (%) (Auto) 73.0 % Lymphocytes (%) (Auto) 11.9 % Monocytes (%) (Auto) 11.6 % Eosinophils (%) (Auto) 2.8 % Basophils (%) (Auto) 0.7 % Neutrophils # (Auto) 3.0 TH/MM3 Lymphocytes # (Auto) 0.5 TH/MM3 Monocytes # (Auto) 0.5 TH/MM3 Eosinophils # (Auto) 0.1 TH/MM3 Basophils # (Auto) 0.0 TH/MM3 CBC Comment DIFF FINAL Differential Comment Sodium Level 138 MEQ/L Potassium Level 4.2 MEQ/L Chloride Level 103 MEQ/L Carbon Dioxide Level 27.7 MEQ/L Anion Gap 7 MEQ/L Blood Urea Nitrogen 18 MG/DL Creatinine 0.55 MG/DL Estimat Glomerular Filtration 152 ML/MIN Rate Random Glucose 92 MG/DL Calcium Level 8.8 MG/DL Objective Remarks General: No acute distress. Trach. Heart: Regular rate and rhythm. No murmur. Lungs: Clear to auscultation bilaterally. No wheezes, rales, or rhonchi. Breathing is nonlabored. Abdomen: Soft, nontender, nondistended. PEG tube in place - C/D/I Extremities: No lower extremity edema. No calf tenderness. Psych: Alert and oriented. Nonverbal. Medications and IVs Current Medications Medications (Trade) Dose Ordered Sig/Darryl Route Start Time Stop Time Status Last Admin (NS Flush) 2 ml UNSCH PRN FLUSH 05/01/16 15:15 05/21/16 13:19 (NS Flush) 2 ml BID FLUSH 05/01/16 21:00 06/17/16 07:56 (Zofran Inj) 4 mg Q6H PRN IVP 05/01/16 15:15 05/29/16 13:46 (Reglan Inj) 5 mg Q8H PRN IV PUSH 05/07/16 22:15 06/12/16 17:41 (Colace) 100 mg TID PO 05/08/16 09:00 06/17/16 07:55 (Habitrol 7 Mg Patch.24 Hr) 1 patch DAILY TD 05/09/16 16:00 06/17/16 07:56 Miscellaneous Information 1 HS TD 05/09/16 21:00 06/16/16 21:11 (Robitussin Dm 200-20 Mg/10 ml Liq) 10 ml Q6H PRN PO 05/11/16 17:00 05/13/16 04:13 (Mucinex Er) 600 mg BID PO 05/11/16 21:30 06/17/16 07:56 (Tessalon) 200 mg TID PRN PO 05/11/16 21:30 05/14/16 20:39 (Tylenol) 650 mg Q6HR PRN PO 05/11/16 21:30 05/17/16 13:06 (Protonix) 40 mg DAILY PO 05/12/16 09:00 06/17/16 07:55 (Lovenox Inj) 40 mg Q24H SQ 05/12/16 06:00 06/17/16 06:11 (Tylenol) 650 mg Q6H PRN PO 05/13/16 11:15 06/13/16 06:17 (Morphine Inj) 4 mg Q3H PRN IV 05/13/16 11:15 06/03/16 00:28 (Narcan Inj) 0.4 mg UNSCH PRN IV 05/13/16 11:15 (Oramorph Sr) 15 mg Q12HR PO 05/25/16 21:00 06/17/16 07:56 (Percocet 5-325 Mg) 1 tab Q4H PRN PO 05/27/16 13:15 06/15/16 04:59 (Percocet 10-325 Mg) 1 tab Q4H PRN PO 05/27/16 13:15 06/17/16 03:15 Furosemide 40 mg 40 mg Q7D IV PUSH 05/27/16 12:00 06/17/16 12:59 06/10/16 13:08 (Decadron Inj/NS Inj) 52.5 ml @ 210 mls/hr Q7D IV 05/27/16 12:00 06/17/16 12:14 06/10/16 13:08 Mannitol 12.5 gm 12.5 gm Q7D IV 05/27/16 12:30 06/17/16 13:31 06/10/16 13:26 (Platinol Inj/NS Inj) 225 ml @ 225 mls/hr Q7D IV 05/27/16 13:00 06/17/16 13:59 06/10/16 15:09 Granisetron HCl 1 mg 1 mg Q7D IV 05/27/16 12:00 06/17/16 12:01 06/10/16 13:08 Potassium Chloride 10 meq/ Sodium Chloride 505 ml @ 500 mls/hr Q1H1M IV 06/17/16 12:00 06/17/16 13:00 Potassium Chloride 10 meq/ Dextrose/Sodium Chloride 505 ml @ 500 mls/hr Q1H1M IV 06/17/16 13:00 06/17/16 14:00 (KCl Inj/ Magnesium Sulfate Inj/D5W-1/2 NS 1000 ml Inj) 1,007 ml @ 500 mls/hr Q2H1M IV 06/17/16 14:00 06/17/16 16:00 (Restoril) 15 mg HS PRN PO 05/28/16 21:00 06/16/16 21:03 (Eldecort 2.5% Cream) 1 applic BID TOPICAL 06/01/16 12:15 06/17/16 07:56 (Micatin 2% Cream) 1 applic Q12HR TOPICAL 06/02/16 21:00 06/17/16 07:57 (Adenike-Colace) 1 tab DAILY PO 06/05/16 12:00 06/17/16 07:56 A/P Assessment and Plan 1. Laryngeal Mass Invasive Squamous Cell Carcinoma, editorial specialist following, ENT, General payroll and benefits specialist Status post Biopsy of the mass, Status post Tracheostomy, continue Chemotherapy. as per framing specialist to remove tracheostomy tube when possible, Radiation therapy. PEG tube placed on 05/06/16, Dietitian following. Downsized Tracheostomy cannula by framing specialist. continue Pulmonary Toilet today he will have 20th radiation treatment and has already fifth Chemotherapy treatment. 2. COPD continue Bronchodilator, Mucolytic and Incentive spirometry. Stable. 3. Tobacco dependence Strongly recommended to stop smoking 4. Pneumonia HCAP bilateral bases infiltrates. on Vancomycin and Cefepime Pseudomonas Aeruginosa fluorescens. at the end treated with Levaquin. 5. Hemoptysis No new issues. As per Plant Operator Helper the patient will continue treatment In House. DVT prophylaxis with Lovenox. chemotherapy and Radiation therapy. No changes to Anterior assessment. //PPx: Lovenox. Discharge Planning Awaiting final by framing specialist and Oncology for discharge pr manager for discharge. Jarred Funes MD Jun 17, 2016 08:08
--- NOTE | 2016-06-17 08:33 | HHI.PR ---
Subjective Remarks ALERT NO SOB TRACH changed started therapy Objective Vital Signs Date Time Temp Pulse Resp B/P Pulse Ox O2 Delivery O2 Flow Rate FiO2 06/17/16 08:00 97.5 71 16 129/73 97 06/17/16 04:15 16 06/17/16 04:00 97.0 89 18 137/79 96 06/16/16 22:00 18 06/16/16 21:24 95 21 06/16/16 20:00 96.8 83 16 127/64 94 06/16/16 15:50 98.1 72 20 104/61 95 06/16/16 13:32 98 21 06/16/16 11:50 97.1 72 20 125/67 98 I/O 06/16/16 06/16/16 06/16/16 06/17/16 06/17/16 06/17/16 07:00 15:00 23:00 07:00 15:00 23:00 Intake Total 480 ml 837 ml 480 ml 480 ml Balance 480 ml 837 ml 480 ml 480 ml Intake Oral 480 ml 837 ml 480 ml 480 ml # Voids 2 3 2 2 # Bowel Movements 0 1 Result Diagram: 06/17/16 0525 06/17/16 0525 Procedures 05/05/16 Laryngeal mass biopsy 05/05/16 tracheostomy Objective Remarks GENERAL: SKIN: Warm and dry. HEAD: Atraumatic. Normocephalic. EYES: Pupils equal and round. No scleral icterus. No injection or drainage. ENT: No nasal bleeding or discharge. Mucous membranes pink and moist. NECK: Trachea midline. No JVD. TRACH IN PLACE CARDIOVASCULAR: Regular rate and rhythm. RESPIRATORY: No accessory muscle use. Clear to auscultation. Breath sounds equal bilaterally. GASTROINTESTINAL: Abdomen soft, non-tender, nondistended. Hepatic and splenic margins not palpable. MUSCULOSKELETAL: Extremities without clubbing, cyanosis, or edema. No obvious deformities. NEUROLOGICAL: Awake and alert. No obvious cranial nerve deficits. Motor grossly within normal limits. Five out of 5 muscle strength in the arms and legs. Normal speech. PSYCHIATRIC: Appropriate mood and affect; insight and judgment normal. Assessment and Plan Assessment and Plan LARYNGEAL CA S/P TRACH PLAN PULM TOILET REMOVE TRACHEOSTOMY WHEN POSSIBLE Kamran Andrew MD Jun 17, 2016 08:33
[2016-06-17 12:00] VITALS: BP 124/80; PULSE 72; RESP 16; TEMP 98.2; O2SAT 96
[2016-06-17] MEDS ORDERED: POTASSIUM CHLORIDE IV SCH ×3 (12:00→14:00)
[2016-06-17] MEDS ORDERED: SODIUM CHLORID 0.9% IV SCH (12:00)
--- NOTE | 2016-06-17 12:07 | PD.ONC.PN ---
Subjective Subjective Remarks Afebrile overnight. Patient resting comfortably. He ate breakfast this morning. He feels well. No nausea or vomiting. No new symptoms. Tolerating radiation. Objective Data Date Time Temp Pulse Resp B/P Pulse Ox O2 Delivery O2 Flow Rate FiO2 06/17/16 08:00 97.5 71 16 129/73 97 06/17/16 04:15 16 06/17/16 04:00 97.0 89 18 137/79 96 06/16/16 22:00 18 06/16/16 21:24 95 21 06/16/16 20:00 96.8 83 16 127/64 94 06/16/16 15:50 98.1 72 20 104/61 95 06/16/16 13:32 98 21 06/16/16 11:50 97.1 72 20 125/67 98 06/17/16 06/17/16 06/17/16 07:00 15:00 23:00 Intake Total 480 ml Balance 480 ml Result Diagram: 06/17/16 0525 06/17/16 0525 Laboratory Results Laboratory Tests Test 06/17/16 05:25 White Blood Count 4.1 TH/MM3 Red Blood Count 3.67 MIL/MM3 Hemoglobin 11.6 GM/DL Hematocrit 33.3 % Mean Corpuscular Volume 90.6 FL Mean Corpuscular Hemoglobin 31.5 PG Mean Corpuscular Hemoglobin 34.8 % Concent Red Cell Distribution Width 14.0 % Platelet Count 128 TH/MM3 Mean Platelet Volume 6.5 FL Neutrophils (%) (Auto) 73.0 % Lymphocytes (%) (Auto) 11.9 % Monocytes (%) (Auto) 11.6 % Eosinophils (%) (Auto) 2.8 % Basophils (%) (Auto) 0.7 % Neutrophils # (Auto) 3.0 TH/MM3 Lymphocytes # (Auto) 0.5 TH/MM3 Monocytes # (Auto) 0.5 TH/MM3 Eosinophils # (Auto) 0.1 TH/MM3 Basophils # (Auto) 0.0 TH/MM3 CBC Comment DIFF FINAL Differential Comment Sodium Level 138 MEQ/L Potassium Level 4.2 MEQ/L Chloride Level 103 MEQ/L Carbon Dioxide Level 27.7 MEQ/L Anion Gap 7 MEQ/L Blood Urea Nitrogen 18 MG/DL Creatinine 0.55 MG/DL Estimat Glomerular Filtration 152 ML/MIN Rate Random Glucose 92 MG/DL Calcium Level 8.8 MG/DL Administered Medications Medications (Trade) Dose Ordered Sig/Darryl Route PRN Reason Start Time Stop Time Status Last Admin Dose Admin IV Flush (NS Flush) 2 ml UNSCH PRN FLUSH FLUSH AFTER USING IV ACCESS 05/01/16 15:15 05/21/16 13:19 IV Flush (NS Flush) 2 ml BID FLUSH 05/01/16 21:00 06/17/16 07:56 Ondansetron HCl (Zofran Inj) 4 mg Q6H PRN IVP NAUSEA OR VOMITING 05/01/16 15:15 05/29/16 13:46 Metoclopramide HCl (Reglan Inj) 5 mg Q8H PRN IV PUSH NAUSEA 05/07/16 22:15 06/12/16 17:41 Docusate Sodium (Colace) 100 mg TID PO 05/08/16 09:00 06/17/16 07:55 Nicotine (Habitrol 7 Mg Patch.24 Hr) 1 patch DAILY TD 05/09/16 16:00 06/17/16 07:56 Miscellaneous Information 1 HS TD 05/09/16 21:00 06/16/16 21:11 Guaifenesin/ Dextromethorphan (Robitussin Dm 200-20 Mg/10 ml Liq) 10 ml Q6H PRN PO COUGH 05/11/16 17:00 05/13/16 04:13 Guaifenesin (Mucinex Er) 600 mg BID PO 05/11/16 21:30 06/17/16 07:56 Benzonatate (Tessalon) 200 mg TID PRN PO cough interfering w/rest 05/11/16 21:30 05/14/16 20:39 Acetaminophen (Tylenol) 650 mg Q6HR PRN PO fever > 100.4 05/11/16 21:30 05/17/16 13:06 Pantoprazole Sodium (Protonix) 40 mg DAILY PO 05/12/16 09:00 06/17/16 07:55 Enoxaparin Sodium (Lovenox Inj) 40 mg Q24H SQ 05/12/16 06:00 06/17/16 06:11 Acetaminophen (Tylenol) 650 mg Q6H PRN PO PAIN SCALE 1 TO 2 05/13/16 11:15 06/13/16 06:17 Morphine Sulfate (Morphine Inj) 4 mg Q3H PRN IV BREAKTHROUGH PAIN 05/13/16 11:15 06/03/16 00:28 Morphine Sulfate (Oramorph Sr) 15 mg Q12HR PO 05/25/16 21:00 06/17/16 07:56 Oxycodone/ Acetaminophen (Percocet 5-325 Mg) 1 tab Q4H PRN PO PAIN SCALE 3 TO 5 05/27/16 13:15 06/15/16 04:59 Oxycodone/ Acetaminophen (Percocet 10-325 Mg) 1 tab Q4H PRN PO PAIN SCALE 6 TO 10 05/27/16 13:15 06/17/16 03:15 Furosemide 40 mg 40 mg Q7D IV PUSH 05/27/16 12:00 06/17/16 12:59 06/10/16 13:08 Dexamethasone Sodium Phosphate/ Sodium Chloride (Decadron Inj/NS Inj) 52.5 ml @ 210 mls/hr Q7D IV 05/27/16 12:00 06/17/16 12:14 06/10/16 13:08 Mannitol 12.5 gm 12.5 gm Q7D IV 05/27/16 12:30 06/17/16 13:31 06/10/16 13:26 Cisplatin/Sodium Chloride (Platinol Inj/NS Inj) 225 ml @ 225 mls/hr Q7D IV 05/27/16 13:00 06/17/16 13:59 06/10/16 15:09 Granisetron HCl (Kytril Inj) 1 mg Q7D IV 05/27/16 12:00 06/17/16 12:01 06/10/16 13:08 Temazepam (Restoril) 15 mg HS PRN PO insomnia 05/28/16 21:00 06/16/16 21:03 Hydrocortisone (Eldecort 2.5% Cream) 1 applic BID TOPICAL 06/01/16 12:15 06/17/16 07:56 Miconazole Nitrate (Micatin 2% Cream) 1 applic Q12HR TOPICAL 06/02/16 21:00 06/17/16 07:57 Senna/Docusate Sodium (Adenike-Colace) 1 tab DAILY PO 06/05/16 12:00 06/17/16 07:56 Objective Remarks GENERAL: Middle aged male, sitting up in bed in NAD. SKIN: Warm and dry. HEAD: Normocephalic. EYES: No injection or drainage. NECK: Supple, trachea midline. CARDIOVASCULAR: +S1/S2. RESPIRATORY: Breath sounds equal bilaterally. No accessory muscle use. GASTROINTESTINAL: Abdomen soft, non-tender, nondistended. EXTREMITIES: No cyanosis, or edema. NEUROLOGICAL: AOx3. normal speech. moving all extremities. 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 05/20: cisplatin 40 mg/m2 05/27: cisplatin 40 mg/m2 06/03: cisplatin 40 mg/m2 05/21: started XRT--continue Thursday-Thursday for 35 treatments 06/17: cisplatin 40mg/m2 Plan 1. Squamous cell carcinoma: received 20/35 XRT treatments today. will receive 5th cycle cisplatin today. 2. Nutrition: tolerating 100% of meals. will likely be able to remove PEG tube soon as he has not needed it and only has 15 XRT treatments left 3. DVT prophylaxis: Lovenox for prophylaxis Radha Hilario Jun 17, 2016 12:06
[2016-06-17] MEDS ORDERED: DEXT 5% IV SCH (13:00)
[2016-06-17] MEDS ORDERED: NACL 0.45% IV SCH (13:00)
[2016-06-17] MEDS: FUROSEMIDE 40 MG/4 ML VIAL IV PUSH SCH (13:09)
[2016-06-17] MEDS: DEXAMETHASONE INJ 10 MG in SODIUM CHLORIDE 0.9% INJ 50 ML IV SCH (13:09)
[2016-06-17] MEDS: GRANISETRON HCL 1 MG/ML VIAL IV SCH (13:09)
[2016-06-17] MEDS: MANNITOL 12.5 GM/50 ML VIAL IV SCH (13:40)
[2016-06-17] MEDS ORDERED: [UNRECOGNIZED DRUG - OTHER] IV SCH (14:00)
[2016-06-17] MEDS ORDERED: MAGNESIUM SULFATE IV SCH (14:00)
[2016-06-17] MEDS: SODIUM CHLORIDE 0.9% IV SCH (14:37)
[2016-06-17] MEDS: CISPLATIN IV SCH (14:37)
[2016-06-17 16:00] VITALS: BP 105/74; PULSE 70; RESP 16; TEMP 97.6; O2SAT 95
[2016-06-17 20:00] VITALS: BP 135/71; PULSE 81; RESP 16; TEMP 98.5; O2SAT 95
[2016-06-17 20:38] VITALS: O2SAT 94
[2016-06-17] MEDS: REMOVE OLD NICODERM (NICOTINE) PATCH TD SCH (20:55)
[2016-06-17] MEDS: MORPHINE SULFATE 4 MG/ML INJ IV PRN (20:55)
[2016-06-17] MEDS: TEMAZEPAM 15 MG CAP PO PRN (23:35)
[2016-06-18] VITALS: BP 119/71; PULSE 76; RESP 16; TEMP 97.8; O2SAT 95
[2016-06-18 04:00] VITALS: BP 123/78; PULSE 89; RESP 16; TEMP 96.7; O2SAT 95
[2016-06-18] MEDS: oxyCODONE/ACETAMINOPHEN 10 MG/325 MG TAB PO PRN ×5 (04:09→21:19)
[2016-06-18] MEDS: ENOXAPARIN SODIUM 40 MG/0.4 ML SYRINGE SQ SCH (04:10)
[2016-06-18 08:00] VITALS: BP 109/77; PULSE 79; RESP 18; TEMP 98.1; O2SAT 97
[2016-06-18] MEDS: SODIUM CHLORIDE 0.9% FLUSH 5 ML FLUSH FLUSH SCH ×2 (08:08→21:00)
[2016-06-18] MEDS: DOCUSATE SODIUM 50 MG/SENNA 8.6 MG TAB PO SCH (08:08)
[2016-06-18] MEDS: MORPHINE SULFATE 15 MG CONTROLLED RELEASE TAB PO SCH ×2 (08:08→21:20)
[2016-06-18] MEDS: guaiFENesin E.R. 600 MG TAB PO SCH ×2 (08:08→21:19)
[2016-06-18] MEDS: PANTOPRAZOLE SOD 40 MG DELAYED RELEASE TAB PO SCH (08:08)
[2016-06-18] MEDS: NICOTINE 7 MG/24 HR PATCH TD SCH (08:08)
[2016-06-18] MEDS: DOCUSATE SODIUM 100 MG CAP PO SCH ×3 (08:08→17:47)
[2016-06-18] MEDS: HYDROCORTISONE 2.5% CREAM 30 GM TOPICAL SCH ×2 (08:11→21:00)
[2016-06-18] MEDS: MICONAZOLE NITRATE 2% CREAM 15 GM TOPICAL SCH ×2 (08:16→21:00)
--- NOTE | 2016-06-18 10:24 | HHI.PR ---
Subjective Remarks Patient stable seen in his bedroom continue treatment in House until finished. 06/18 Seen in his bedroom no new issues, reported no nausea, vomit or diarrhea had his Radiation treatment. Objective Vital Signs Date Time Temp Pulse Resp B/P Pulse Ox O2 Delivery O2 Flow Rate FiO2 06/18/16 04:00 96.7 89 16 123/78 95 06/18/16 00:00 97.8 76 16 119/71 95 06/17/16 20:38 94 21 06/17/16 20:00 98.5 81 16 135/71 95 06/17/16 16:00 97.6 70 16 105/74 95 06/17/16 12:00 98.2 72 16 124/80 96 I/O 06/17/16 06/17/16 06/17/16 06/18/16 06/18/16 06/18/16 07:00 15:00 23:00 07:00 15:00 23:00 Intake Total 480 ml 480 ml 2384 ml 240 ml Output Total 1000 ml 500 ml Balance 480 ml -520 ml 1884 ml 240 ml Intake Oral 480 ml 480 ml 480 ml 240 ml IV Total 1904 ml Output Urine Total 1000 ml 500 ml # Voids 2 2 2 # Bowel Movements 0 Result Diagram: 06/17/16 0525 06/17/16 0525 Imaging Last Impressions Chest X-Ray 05/10/16 0000 Signed Impressions: Service Date/Time: Tuesday, May 10, 2016 11:23 - CONCLUSION: Atelectasis at the lung bases. No other acute cardiopulmonary disease identified. Suhail Calderon MD Gastrostomy Tube Placement 05/06/16 0000 Signed Impressions: Service Date/Time: Friday, May 06, 2016 13:15 - CONCLUSION: Uncomplicated gastrostomy tube placement as above. Fabian Blackwood Jr., MD Chest CT 05/03/16 0000 Signed Impressions: Service Date/Time: Tuesday, May 03, 2016 11:33 - CONCLUSION: 1. Emphysema and right upper lobe scarring. Scarring is mildly nodular but still most likely benign. Six-month followup noncontrast chest CT recommended. 2. No lymphadenopathy. 3. Coronary artery calcification. John Mcdonnell MD Abdomen/Pelvis CT 05/03/16 0000 Signed Impressions: Service Date/Time: Tuesday, May 03, 2016 11:33 - CONCLUSION: 1. No malignancy or other acute abnormality seen within the abdomen or pelvis. 2. Diverticulosis of the colon without acute inflammatory changes. 3. Atherosclerotic aorta. No aneurysm. John Mcdonnell MD Neck CT 05/01/16 0000 Signed Impressions: Service Date/Time: April 13:51 - CONCLUSION: 1. Large mass involving the larynx measuring 3.5 x 2.0 cm causing significant compromise to the airway. No adenopathy observed. Malignancy is felt most likely. 2. Severe emphysematous changes. 3. Areas of probable scarring involving the right lung apex. This is nodular in appearance in one area that is partially visualized. I suggest a CT of the thorax to further evaluate. Fabian Blackwood Jr., MD Procedures 05/05/16 Laryngeal mass biopsy 05/05/16 tracheostomy Other Results Laboratory Tests Test 06/17/16 05:25 White Blood Count 4.1 TH/MM3 Red Blood Count 3.67 MIL/MM3 Hemoglobin 11.6 GM/DL Hematocrit 33.3 % Mean Corpuscular Volume 90.6 FL Mean Corpuscular Hemoglobin 31.5 PG Mean Corpuscular Hemoglobin 34.8 % Concent Red Cell Distribution Width 14.0 % Platelet Count 128 TH/MM3 Mean Platelet Volume 6.5 FL Neutrophils (%) (Auto) 73.0 % Lymphocytes (%) (Auto) 11.9 % Monocytes (%) (Auto) 11.6 % Eosinophils (%) (Auto) 2.8 % Basophils (%) (Auto) 0.7 % Neutrophils # (Auto) 3.0 TH/MM3 Lymphocytes # (Auto) 0.5 TH/MM3 Monocytes # (Auto) 0.5 TH/MM3 Eosinophils # (Auto) 0.1 TH/MM3 Basophils # (Auto) 0.0 TH/MM3 CBC Comment DIFF FINAL Differential Comment Sodium Level 138 MEQ/L Potassium Level 4.2 MEQ/L Chloride Level 103 MEQ/L Carbon Dioxide Level 27.7 MEQ/L Anion Gap 7 MEQ/L Blood Urea Nitrogen 18 MG/DL Creatinine 0.55 MG/DL Estimat Glomerular Filtration 152 ML/MIN Rate Random Glucose 92 MG/DL Calcium Level 8.8 MG/DL Objective Remarks General: No acute distress. Trach. Heart: Regular rate and rhythm. No murmur. Lungs: Clear to auscultation bilaterally. No wheezes, rales, or rhonchi. Breathing is nonlabored. Abdomen: Soft, nontender, nondistended. PEG tube in place - C/D/I Extremities: No lower extremity edema. No calf tenderness. Psych: Alert and oriented. Nonverbal. Medications and IVs Current Medications Medications (Trade) Dose Ordered Sig/Darryl Route Start Time Stop Time Status Last Admin (NS Flush) 2 ml UNSCH PRN FLUSH 05/01/16 15:15 05/21/16 13:19 (NS Flush) 2 ml BID FLUSH 05/01/16 21:00 06/18/16 08:08 (Zofran Inj) 4 mg Q6H PRN IVP 05/01/16 15:15 05/29/16 13:46 (Reglan Inj) 5 mg Q8H PRN IV PUSH 05/07/16 22:15 06/12/16 17:41 (Colace) 100 mg TID PO 05/08/16 09:00 06/18/16 08:08 (Habitrol 7 Mg Patch.24 Hr) 1 patch DAILY TD 05/09/16 16:00 06/18/16 08:08 Miscellaneous Information 1 HS TD 05/09/16 21:00 06/17/16 20:55 (Robitussin Dm 200-20 Mg/10 ml Liq) 10 ml Q6H PRN PO 05/11/16 17:00 05/13/16 04:13 (Mucinex Er) 600 mg BID PO 05/11/16 21:30 06/18/16 08:08 (Tessalon) 200 mg TID PRN PO 05/11/16 21:30 05/14/16 20:39 (Tylenol) 650 mg Q6HR PRN PO 05/11/16 21:30 05/17/16 13:06 (Protonix) 40 mg DAILY PO 05/12/16 09:00 06/18/16 08:08 (Lovenox Inj) 40 mg Q24H SQ 05/12/16 06:00 06/18/16 04:10 (Tylenol) 650 mg Q6H PRN PO 05/13/16 11:15 06/13/16 06:17 (Morphine Inj) 4 mg Q3H PRN IV 05/13/16 11:15 06/17/16 20:55 (Narcan Inj) 0.4 mg UNSCH PRN IV 05/13/16 11:15 (Oramorph Sr) 15 mg Q12HR PO 05/25/16 21:00 06/18/16 08:08 (Percocet 5-325 Mg) 1 tab Q4H PRN PO 05/27/16 13:15 06/15/16 04:59 (Percocet 10-325 Mg) 1 tab Q4H PRN PO 05/27/16 13:15 06/18/16 08:08 (Restoril) 15 mg HS PRN PO 05/28/16 21:00 06/17/16 23:35 (Eldecort 2.5% Cream) 1 applic BID TOPICAL 06/01/16 12:15 06/18/16 08:11 (Micatin 2% Cream) 1 applic Q12HR TOPICAL 06/02/16 21:00 06/18/16 08:16 (Adenike-Colace) 1 tab DAILY PO 06/05/16 12:00 06/18/16 08:08 A/P Assessment and Plan 1. Laryngeal Mass Invasive Squamous Cell Carcinoma, senior computer specialist following, ENT, General environmental communications specialist Status post Biopsy of the mass, Status post Tracheostomy, continue Chemotherapy. as per training specialist to remove tracheostomy tube when possible, Radiation therapy. PEG tube placed on 05/06/16, Dietitian following. Downsized Tracheostomy cannula by training specialist. continue Pulmonary Toilet today he will have 21st radiation treatment and has already fifth Chemotherapy treatment. 2. COPD continue Bronchodilator, Mucolytic and Incentive spirometry. Stable. 3. Tobacco dependence Strongly recommended to stop smoking 4. Pneumonia HCAP bilateral bases infiltrates. on Vancomycin and Cefepime Pseudomonas Aeruginosa fluorescens. at the end treated with Levaquin. 5. Hemoptysis No new issues. As per Floor Steward/Stewardess the patient will continue treatment In House. DVT prophylaxis with Lovenox. chemotherapy and Radiation therapy. No changes to Anterior assessment. //PPx: Lovenox. Discharge Planning Awaiting final by training specialist and Oncology for discharge resource development manager for discharge. Jarred Funes MD Jun 18, 2016 10:24
[2016-06-18 12:00] VITALS: BP 109/78; PULSE 77; RESP 18; TEMP 97.3; O2SAT 96
[2016-06-18 16:00] VITALS: BP 116/77; PULSE 72; RESP 18; TEMP 96.9; O2SAT 96
[2016-06-18 20:00] VITALS: BP 115/70; PULSE 85; RESP 16; TEMP 97.4; O2SAT 94
[2016-06-18] MEDS: REMOVE OLD NICODERM (NICOTINE) PATCH TD SCH (21:00)
[2016-06-18] MEDS: TEMAZEPAM 15 MG CAP PO PRN (21:22)
[2016-06-19] VITALS (9 sets, daily range): BP systolic 97–136; BP diastolic 69–79; PULSE 75–92; RESP 16–18; TEMP 96.8–97.8; O2SAT 94–97
[2016-06-19] MEDS: ENOXAPARIN SODIUM 40 MG/0.4 ML SYRINGE SQ SCH (05:32)
[2016-06-19] MEDS: oxyCODONE/ACETAMINOPHEN 10 MG/325 MG TAB PO PRN ×5 (05:32→22:46)
[2016-06-19] MEDS: PANTOPRAZOLE SOD 40 MG DELAYED RELEASE TAB PO SCH (08:44)
[2016-06-19] MEDS: DOCUSATE SODIUM 50 MG/SENNA 8.6 MG TAB PO SCH (08:44)
[2016-06-19] MEDS: DOCUSATE SODIUM 100 MG CAP PO SCH ×3 (08:44→18:18)
[2016-06-19] MEDS: NICOTINE 7 MG/24 HR PATCH TD SCH (08:45)
[2016-06-19] MEDS: MORPHINE SULFATE 15 MG CONTROLLED RELEASE TAB PO SCH ×2 (08:45→20:08)
[2016-06-19] MEDS: SODIUM CHLORIDE 0.9% FLUSH 5 ML FLUSH FLUSH SCH ×2 (08:45→20:09)
[2016-06-19] MEDS: HYDROCORTISONE 2.5% CREAM 30 GM TOPICAL SCH ×2 (08:46→20:11)
[2016-06-19] MEDS: MICONAZOLE NITRATE 2% CREAM 15 GM TOPICAL SCH ×2 (08:46→20:11)
[2016-06-19] MEDS: guaiFENesin E.R. 600 MG TAB PO SCH ×2 (08:49→20:08)
--- NOTE | 2016-06-19 10:49 | HHI.PR ---
Subjective Remarks Follow-up laryngeal cancer. The patient states that he feels okay today. No specific complaints at this time. Denies dyspnea. Objective Vitals Vital Signs Date Time Temp Pulse Resp B/P Pulse Ox O2 Delivery O2 Flow Rate FiO2 06/19/16 09:39 95 21 06/19/16 08:00 97.8 92 16 136/79 97 06/19/16 04:45 96.8 85 16 97/69 97 06/19/16 04:03 97 06/19/16 00:00 97.5 79 16 111/69 95 06/18/16 20:00 97.4 85 16 115/70 94 06/18/16 16:00 96.9 72 18 116/77 96 06/18/16 12:00 97.3 77 18 109/78 96 I/O 06/18/16 06/18/16 06/18/16 06/19/16 06/19/16 06/19/16 07:00 15:00 23:00 07:00 15:00 23:00 Intake Total 240 ml 1080 ml 480 ml 480 ml Balance 240 ml 1080 ml 480 ml 480 ml Intake Oral 240 ml 1080 ml 480 ml 480 ml # Voids 2 5 2 1 # Bowel Movements 1 Result Diagram: 06/17/16 0525 06/17/16 0525 Imaging Last Impressions Chest X-Ray 05/10/16 0000 Signed Impressions: Service Date/Time: Tuesday, May 10, 2016 11:23 - CONCLUSION: Atelectasis at the lung bases. No other acute cardiopulmonary disease identified. Suhail Calderon MD Gastrostomy Tube Placement 05/06/16 0000 Signed Impressions: Service Date/Time: Friday, May 06, 2016 13:15 - CONCLUSION: Uncomplicated gastrostomy tube placement as above. Fabian Blackwood Jr., MD Chest CT 05/03/16 0000 Signed Impressions: Service Date/Time: Tuesday, May 03, 2016 11:33 - CONCLUSION: 1. Emphysema and right upper lobe scarring. Scarring is mildly nodular but still most likely benign. Six-month followup noncontrast chest CT recommended. 2. No lymphadenopathy. 3. Coronary artery calcification. John Mcdonnell MD Abdomen/Pelvis CT 05/03/16 0000 Signed Impressions: Service Date/Time: Tuesday, May 03, 2016 11:33 - CONCLUSION: 1. No malignancy or other acute abnormality seen within the abdomen or pelvis. 2. Diverticulosis of the colon without acute inflammatory changes. 3. Atherosclerotic aorta. No aneurysm. John Mcdonnell MD Neck CT 05/01/16 0000 Signed Impressions: Service Date/Time: April 13:51 - CONCLUSION: 1. Large mass involving the larynx measuring 3.5 x 2.0 cm causing significant compromise to the airway. No adenopathy observed. Malignancy is felt most likely. 2. Severe emphysematous changes. 3. Areas of probable scarring involving the right lung apex. This is nodular in appearance in one area that is partially visualized. I suggest a CT of the thorax to further evaluate. Fabian Blackwood Jr., MD Objective Remarks General: No acute distress. Trach is capped. Heart: Regular rate and rhythm. No murmur. Lungs: Clear to auscultation bilaterally. No wheezes, rales, or rhonchi. Breathing is nonlabored. Abdomen: Soft, nontender, nondistended. PEG tube in place. Extremities: No lower extremity edema. No calf tenderness. Psych: Alert and oriented. Procedures 05/05/16 Laryngeal mass biopsy 05/05/16 tracheostomy Urinary Catheter: No Vascular Central Line Catheter: No A/P Problem List: (1) Laryngeal mass ICD Code: J38.7 Status: Acute (2) COPD (chronic obstructive pulmonary disease) ICD Code: J44.9 Status: Chronic (3) Tobacco abuse ICD Code: Z72.0 Status: Chronic (4) Nausea & vomiting ICD Code: R11.2 Status: Resolved (5) Hyponatremia ICD Code: E87.1 Status: Chronic (6) Low grade fever ICD Code: R50.9 Status: Acute (7) Leukocytosis ICD Code: D72.829 Status: Acute Assessment and Plan 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 S/P tracheostomy. Continue chemotherapy, radiation therapy. Appreciate pulmonology recommendations regarding tracheostomy. 2. COPD: Continue supplemental oxygen. Bronchodilators as needed. 3. Tobacco abuse: Counseled to quit smoking. 4. DVT prophylaxis: SCDs, JEREMY delaney. Lovenox. 5. Healthcare associated pneumonia: Treated with vancomycin, cefepime. Discharge Planning Patient to remain hospitalized for chemotherapy, radiation therapy. Plan for discharge when cleared by oncology, pulmonology. Problem Qualifiers (1) COPD (chronic obstructive pulmonary disease): Qualified Code: J42 - Chronic bronchitis, unspecified chronic bronchitis type (2) Leukocytosis: Qualified Code: D72.829 - Leukocytosis, unspecified type Ivan Clayton MD Jun 19, 2016 10:49
--- NOTE | 2016-06-19 18:39 | HHI.PR ---
Subjective Remarks ALERT NO SOB TRACH changed started therapy Objective Vital Signs Date Time Temp Pulse Resp B/P Pulse Ox O2 Delivery O2 Flow Rate FiO2 06/19/16 17:50 96 21 06/19/16 16:00 97.0 75 16 102/69 96 06/19/16 12:00 97.3 75 16 136/76 94 06/19/16 09:39 95 21 06/19/16 08:00 97.8 92 16 136/79 97 06/19/16 04:45 96.8 85 16 97/69 97 06/19/16 04:03 97 06/19/16 00:00 97.5 79 16 111/69 95 06/18/16 20:00 97.4 85 16 115/70 94 I/O 06/18/16 06/18/16 06/18/16 06/19/16 06/19/16 06/19/16 07:00 15:00 23:00 07:00 15:00 23:00 Intake Total 240 ml 1080 ml 480 ml 480 ml 720 ml Balance 240 ml 1080 ml 480 ml 480 ml 720 ml Intake Oral 240 ml 1080 ml 480 ml 480 ml 720 ml # Voids 2 5 2 1 3 # Bowel Movements 1 Result Diagram: 06/17/16 0525 06/17/16 0525 Procedures 05/05/16 Laryngeal mass biopsy 05/05/16 tracheostomy Objective Remarks GENERAL: SKIN: Warm and dry. HEAD: Atraumatic. Normocephalic. EYES: Pupils equal and round. No scleral icterus. No injection or drainage. ENT: No nasal bleeding or discharge. Mucous membranes pink and moist. NECK: Trachea midline. No JVD. TRACH IN PLACE CARDIOVASCULAR: Regular rate and rhythm. RESPIRATORY: No accessory muscle use. Clear to auscultation. Breath sounds equal bilaterally. GASTROINTESTINAL: Abdomen soft, non-tender, nondistended. Hepatic and splenic margins not palpable. MUSCULOSKELETAL: Extremities without clubbing, cyanosis, or edema. No obvious deformities. NEUROLOGICAL: Awake and alert. No obvious cranial nerve deficits. Motor grossly within normal limits. Five out of 5 muscle strength in the arms and legs. Normal speech. PSYCHIATRIC: Appropriate mood and affect; insight and judgment normal. Medications and IVs GENERAL: SKIN: Warm and dry. HEAD: Atraumatic. Normocephalic. EYES: Pupils equal and round. No scleral icterus. No injection or drainage. ENT: No nasal bleeding or discharge. Mucous membranes pink and moist. NECK: Trachea midline. No JVD. CARDIOVASCULAR: Regular rate and rhythm. RESPIRATORY: No accessory muscle use. Clear to auscultation. Breath sounds equal bilaterally. GASTROINTESTINAL: Abdomen soft, non-tender, nondistended. Hepatic and splenic margins not palpable. MUSCULOSKELETAL: Extremities without clubbing, cyanosis, or edema. No obvious deformities. NEUROLOGICAL: Awake and alert. No obvious cranial nerve deficits. Motor grossly within normal limits. Five out of 5 muscle strength in the arms and legs. Normal speech. PSYCHIATRIC: Appropriate mood and affect; insight and judgment normal. Assessment and Plan Assessment and Plan LARYNGEAL CA S/P TRACH PLAN PULM TOILET REMOVE TRACHEOSTOMY WHEN POSSIBLE Kamran Andrew MD Jun 19, 2016 18:39
[2016-06-19] MEDS: REMOVE OLD NICODERM (NICOTINE) PATCH TD SCH (20:10)
[2016-06-19] MEDS: TEMAZEPAM 15 MG CAP PO PRN (21:06)
[2016-06-20] VITALS (7 sets, daily range): BP systolic 98–133; BP diastolic 67–75; PULSE 73–93; RESP 17–20; TEMP 97.1–98.3; O2SAT 93–97
[2016-06-20] MEDS: oxyCODONE/ACETAMINOPHEN 10 MG/325 MG TAB PO PRN ×4 (04:59→19:41)
[2016-06-20] MEDS: ENOXAPARIN SODIUM 40 MG/0.4 ML SYRINGE SQ SCH (04:59)
[2016-06-20] MEDS: MORPHINE SULFATE 15 MG CONTROLLED RELEASE TAB PO SCH ×2 (08:38→19:42)
[2016-06-20] MEDS: SODIUM CHLORIDE 0.9% FLUSH 5 ML FLUSH FLUSH SCH ×2 (08:39→19:42)
[2016-06-20] MEDS: DOCUSATE SODIUM 100 MG CAP PO SCH ×3 (08:39→17:55)
[2016-06-20] MEDS: PANTOPRAZOLE SOD 40 MG DELAYED RELEASE TAB PO SCH (08:39)
[2016-06-20] MEDS: DOCUSATE SODIUM 50 MG/SENNA 8.6 MG TAB PO SCH (08:39)
[2016-06-20] MEDS: NICOTINE 7 MG/24 HR PATCH TD SCH (08:39)
[2016-06-20] MEDS: guaiFENesin E.R. 600 MG TAB PO SCH ×2 (08:39→19:42)
--- NOTE | 2016-06-20 08:49 | HHI.PR ---
Subjective Remarks ALERT NO SOB TRACH changed started therapy Objective Vital Signs Date Time Temp Pulse Resp B/P Pulse Ox O2 Delivery O2 Flow Rate FiO2 06/20/16 04:00 98.0 93 17 98/75 93 06/20/16 00:00 97.7 86 18 127/74 96 06/19/16 20:00 97.7 86 18 116/72 94 06/19/16 17:50 96 21 06/19/16 16:00 97.0 75 16 102/69 96 06/19/16 12:00 97.3 75 16 136/76 94 06/19/16 09:39 95 21 I/O 06/19/16 06/19/16 06/19/16 06/20/16 06/20/16 06/20/16 07:00 15:00 23:00 07:00 15:00 23:00 Intake Total 480 ml 720 ml 480 ml Balance 480 ml 720 ml 480 ml Intake Oral 480 ml 720 ml 480 ml # Voids 1 3 2 1 # Bowel Movements 0 0 Result Diagram: 06/17/16 0525 06/17/16 0525 Procedures 05/05/16 Laryngeal mass biopsy 05/05/16 tracheostomy Objective Remarks GENERAL: SKIN: Warm and dry. HEAD: Atraumatic. Normocephalic. EYES: Pupils equal and round. No scleral icterus. No injection or drainage. ENT: No nasal bleeding or discharge. Mucous membranes pink and moist. NECK: Trachea midline. No JVD. TRACH IN PLACE CARDIOVASCULAR: Regular rate and rhythm. RESPIRATORY: No accessory muscle use. Clear to auscultation. Breath sounds equal bilaterally. GASTROINTESTINAL: Abdomen soft, non-tender, nondistended. Hepatic and splenic margins not palpable. MUSCULOSKELETAL: Extremities without clubbing, cyanosis, or edema. No obvious deformities. NEUROLOGICAL: Awake and alert. No obvious cranial nerve deficits. Motor grossly within normal limits. Five out of 5 muscle strength in the arms and legs. Normal speech. PSYCHIATRIC: Appropriate mood and affect; insight and judgment normal. Assessment and Plan Assessment and Plan LARYNGEAL CA S/P TRACH PLAN PULM TOILET REMOVE TRACHEOSTOMY WHEN POSSIBLE Kamran Andrew MD Jun 20, 2016 08:49
[2016-06-20] MEDS: MICONAZOLE NITRATE 2% CREAM 15 GM TOPICAL SCH ×2 (09:00→19:44)
[2016-06-20] MEDS: HYDROCORTISONE 2.5% CREAM 30 GM TOPICAL SCH ×2 (09:00→19:44)
--- NOTE | 2016-06-20 09:21 | HHI.PR ---
Subjective Remarks Follow up laryngeal cancer. Patient seen ambulating in the [place]. Has no complaints today. Denies dyspnea, cough. Objective Vitals Vital Signs Date Time Temp Pulse Resp B/P Pulse Ox O2 Delivery O2 Flow Rate FiO2 06/20/16 04:00 98.0 93 17 98/75 93 06/20/16 00:00 97.7 86 18 127/74 96 06/19/16 20:00 97.7 86 18 116/72 94 06/19/16 17:50 96 21 06/19/16 16:00 97.0 75 16 102/69 96 06/19/16 12:00 97.3 75 16 136/76 94 06/19/16 09:39 95 21 I/O 06/19/16 06/19/16 06/19/16 06/20/16 06/20/16 06/20/16 07:00 15:00 23:00 07:00 15:00 23:00 Intake Total 480 ml 720 ml 480 ml Balance 480 ml 720 ml 480 ml Intake Oral 480 ml 720 ml 480 ml # Voids 1 3 2 1 # Bowel Movements 0 0 Result Diagram: 06/17/16 0525 06/17/16 0525 Imaging Last Impressions Chest X-Ray 05/10/16 0000 Signed Impressions: Service Date/Time: Tuesday, May 10, 2016 11:23 - CONCLUSION: Atelectasis at the lung bases. No other acute cardiopulmonary disease identified. Suhail Calderon MD Gastrostomy Tube Placement 05/06/16 0000 Signed Impressions: Service Date/Time: Friday, May 06, 2016 13:15 - CONCLUSION: Uncomplicated gastrostomy tube placement as above. Fabian Blackwood Jr., MD Chest CT 05/03/16 0000 Signed Impressions: Service Date/Time: Tuesday, May 03, 2016 11:33 - CONCLUSION: 1. Emphysema and right upper lobe scarring. Scarring is mildly nodular but still most likely benign. Six-month followup noncontrast chest CT recommended. 2. No lymphadenopathy. 3. Coronary artery calcification. John Mcdonnell MD Abdomen/Pelvis CT 05/03/16 0000 Signed Impressions: Service Date/Time: Tuesday, May 03, 2016 11:33 - CONCLUSION: 1. No malignancy or other acute abnormality seen within the abdomen or pelvis. 2. Diverticulosis of the colon without acute inflammatory changes. 3. Atherosclerotic aorta. No aneurysm. John Mcdonnell MD Neck CT 05/01/16 0000 Signed Impressions: Service Date/Time: April 13:51 - CONCLUSION: 1. Large mass involving the larynx measuring 3.5 x 2.0 cm causing significant compromise to the airway. No adenopathy observed. Malignancy is felt most likely. 2. Severe emphysematous changes. 3. Areas of probable scarring involving the right lung apex. This is nodular in appearance in one area that is partially visualized. I suggest a CT of the thorax to further evaluate. Fabian Blackwood Jr., MD Objective Remarks General: No acute distress. Trach is capped. Heart: Regular rate and rhythm. No murmur. Lungs: Clear to auscultation bilaterally. No wheezes, rales, or rhonchi. Breathing is nonlabored. Abdomen: Soft, nontender, nondistended. PEG tube in place. Extremities: No lower extremity edema. No calf tenderness. Psych: Alert and oriented. Procedures 05/05/16 Laryngeal mass biopsy 05/05/16 tracheostomy Urinary Catheter: No Vascular Central Line Catheter: No A/P Problem List: (1) Laryngeal mass ICD Code: J38.7 Status: Acute (2) COPD (chronic obstructive pulmonary disease) ICD Code: J44.9 Status: Chronic (3) Tobacco abuse ICD Code: Z72.0 Status: Chronic (4) Nausea & vomiting ICD Code: R11.2 Status: Resolved (5) Hyponatremia ICD Code: E87.1 Status: Chronic (6) Low grade fever ICD Code: R50.9 Status: Acute (7) Leukocytosis ICD Code: D72.829 Status: Acute Assessment and Plan 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 S/P tracheostomy. Continue chemotherapy, radiation therapy. Appreciate pulmonology recommendations regarding tracheostomy, which will apparently be removed soon. 2. COPD: Continue supplemental oxygen. Bronchodilators as needed. 3. Tobacco abuse: Counseled to quit smoking. 4. DVT prophylaxis: JEREMY Romeo. Lovenox. 5. Healthcare associated pneumonia: Treated with vancomycin, cefepime. Discharge Planning Patient to remain hospitalized for chemotherapy, radiation therapy. Plan for discharge when cleared by oncology, pulmonology. Problem Qualifiers (1) COPD (chronic obstructive pulmonary disease): Qualified Code: J42 - Chronic bronchitis, unspecified chronic bronchitis type (2) Leukocytosis: Qualified Code: D72.829 - Leukocytosis, unspecified type Ivan Clayton MD Jun 20, 2016 09:20
[2016-06-20] MEDS: REMOVE OLD NICODERM (NICOTINE) PATCH TD SCH (19:43)
[2016-06-20] MEDS: TEMAZEPAM 15 MG CAP PO PRN (21:24)
[2016-06-21] VITALS (8 sets, daily range): BP systolic 89–130; BP diastolic 61–78; PULSE 74–111; RESP 16–18; TEMP 97–97.7; O2SAT 94–98
[2016-06-21] MEDS: oxyCODONE/ACETAMINOPHEN 10 MG/325 MG TAB PO PRN ×4 (05:39→20:24)
[2016-06-21] MEDS: ENOXAPARIN SODIUM 40 MG/0.4 ML SYRINGE SQ SCH (05:39)
[2016-06-21] MEDS: DOCUSATE SODIUM 50 MG/SENNA 8.6 MG TAB PO SCH (08:42)
[2016-06-21] MEDS: DOCUSATE SODIUM 100 MG CAP PO SCH ×3 (08:42→17:28)
[2016-06-21] MEDS: HYDROCORTISONE 2.5% CREAM 30 GM TOPICAL SCH ×2 (08:42→20:27)
[2016-06-21] MEDS: guaiFENesin E.R. 600 MG TAB PO SCH ×2 (08:42→20:22)
[2016-06-21] MEDS: NICOTINE 7 MG/24 HR PATCH TD SCH (08:42)
[2016-06-21] MEDS: MORPHINE SULFATE 15 MG CONTROLLED RELEASE TAB PO SCH ×2 (08:42→20:23)
[2016-06-21] MEDS: PANTOPRAZOLE SOD 40 MG DELAYED RELEASE TAB PO SCH (08:42)
[2016-06-21] MEDS: SODIUM CHLORIDE 0.9% FLUSH 5 ML FLUSH FLUSH SCH ×2 (09:00→20:26)
[2016-06-21] MEDS: MICONAZOLE NITRATE 2% CREAM 15 GM TOPICAL SCH ×2 (09:00→20:27)
--- NOTE | 2016-06-21 09:01 | HHI.PR ---
Subjective Remarks Follow-up laryngeal cancer. No complaints at this time. Objective Vitals Vital Signs Date Time Temp Pulse Resp B/P Pulse Ox O2 Delivery O2 Flow Rate FiO2 06/21/16 04:00 97.2 81 17 130/61 95 06/21/16 00:00 97.2 84 16 103/67 96 06/20/16 20:00 97.6 74 17 133/75 94 06/20/16 18:07 97 21 06/20/16 17:22 97.1 83 18 107/69 97 06/20/16 16:46 16 06/20/16 13:33 98.3 87 18 120/70 94 I/O 06/20/16 06/20/16 06/20/16 06/21/16 06/21/16 06/21/16 07:00 15:00 23:00 07:00 15:00 23:00 Intake Total 480 ml 600 ml 480 ml 240 ml Balance 480 ml 600 ml 480 ml 240 ml Intake Oral 480 ml 600 ml 480 ml 240 ml # Voids 1 3 2 2 # Bowel Movements 0 1 1 Result Diagram: 06/17/16 0525 06/17/16 0525 Imaging Last Impressions Chest X-Ray 05/10/16 0000 Signed Impressions: Service Date/Time: Tuesday, May 10, 2016 11:23 - CONCLUSION: Atelectasis at the lung bases. No other acute cardiopulmonary disease identified. Suhail Calderon MD Gastrostomy Tube Placement 05/06/16 0000 Signed Impressions: Service Date/Time: Friday, May 06, 2016 13:15 - CONCLUSION: Uncomplicated gastrostomy tube placement as above. Fabian Blackwood Jr., MD Chest CT 05/03/16 0000 Signed Impressions: Service Date/Time: Tuesday, May 03, 2016 11:33 - CONCLUSION: 1. Emphysema and right upper lobe scarring. Scarring is mildly nodular but still most likely benign. Six-month followup noncontrast chest CT recommended. 2. No lymphadenopathy. 3. Coronary artery calcification. John Mcdonnell MD Abdomen/Pelvis CT 05/03/16 0000 Signed Impressions: Service Date/Time: Tuesday, May 03, 2016 11:33 - CONCLUSION: 1. No malignancy or other acute abnormality seen within the abdomen or pelvis. 2. Diverticulosis of the colon without acute inflammatory changes. 3. Atherosclerotic aorta. No aneurysm. John Mcdonnell MD Neck CT 05/01/16 0000 Signed Impressions: Service Date/Time: April 13:51 - CONCLUSION: 1. Large mass involving the larynx measuring 3.5 x 2.0 cm causing significant compromise to the airway. No adenopathy observed. Malignancy is felt most likely. 2. Severe emphysematous changes. 3. Areas of probable scarring involving the right lung apex. This is nodular in appearance in one area that is partially visualized. I suggest a CT of the thorax to further evaluate. Fabian Blackwood Jr., MD Objective Remarks General: No acute distress. Trach is capped. Heart: Regular rate and rhythm. No murmur. Lungs: Clear to auscultation bilaterally. No wheezes, rales, or rhonchi. Breathing is nonlabored. Abdomen: Soft, nontender, nondistended. PEG tube in place. Extremities: No lower extremity edema. No calf tenderness. Psych: Alert and oriented. Procedures 05/05/16 Laryngeal mass biopsy 05/05/16 tracheostomy Urinary Catheter: No Vascular Central Line Catheter: No A/P Problem List: (1) Laryngeal mass ICD Code: J38.7 Status: Acute (2) COPD (chronic obstructive pulmonary disease) ICD Code: J44.9 Status: Chronic (3) Tobacco abuse ICD Code: Z72.0 Status: Chronic (4) Nausea & vomiting ICD Code: R11.2 Status: Resolved (5) Hyponatremia ICD Code: E87.1 Status: Chronic (6) Low grade fever ICD Code: R50.9 Status: Acute (7) Leukocytosis ICD Code: D72.829 Status: Acute Assessment and Plan Reviewed/updated 06/21/16. No change. Trach management per pulmonology. Chemotherapy/radiation therapy per oncology. 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 S/P tracheostomy. Continue chemotherapy, radiation therapy. Appreciate pulmonology recommendations regarding tracheostomy, which will apparently be removed soon. 2. COPD: Continue supplemental oxygen. Bronchodilators as needed. 3. Tobacco abuse: Counseled to quit smoking. 4. DVT prophylaxis: SCDs, JEREMY delaney. Lovenox. 5. Healthcare associated pneumonia: Treated with vancomycin, cefepime. Discharge Planning Patient to remain hospitalized for chemotherapy, radiation therapy. Plan for discharge when cleared by oncology, pulmonology. Problem Qualifiers (1) COPD (chronic obstructive pulmonary disease): Qualified Code: J42 - Chronic bronchitis, unspecified chronic bronchitis type (2) Leukocytosis: Qualified Code: D72.829 - Leukocytosis, unspecified type Ivan Clayton MD Jun 21, 2016 09:01
[2016-06-21] MEDS: RESP: ALBUTEROL 2.5 MG/IPRATROPIUM 0.5 MG NEB (PRN) NEB (12:40)
[2016-06-21] MEDS: TEMAZEPAM 15 MG CAP PO PRN (20:22)
[2016-06-21] MEDS: REMOVE OLD NICODERM (NICOTINE) PATCH TD SCH (20:27)
[2016-06-22] VITALS (8 sets, daily range): BP systolic 98–131; BP diastolic 62–78; PULSE 81–93; RESP 16–20; TEMP 97.2–99.2; O2SAT 93–98
[2016-06-22] MEDS: ENOXAPARIN SODIUM 40 MG/0.4 ML SYRINGE SQ SCH (05:12)
[2016-06-22] MEDS: oxyCODONE/ACETAMINOPHEN 10 MG/325 MG TAB PO PRN ×5 (05:12→21:09)
--- NOTE | 2016-06-22 08:16 | HHI.PR ---
Subjective Remarks Follow-up laryngeal cancer. Patient's only complaint at this time is discomfort from his PEG tube. He is requesting to have it removed. Objective Vitals Vital Signs Date Time Temp Pulse Resp B/P Pulse Ox O2 Delivery O2 Flow Rate FiO2 06/22/16 04:00 97.9 87 18 98/62 94 06/22/16 00:00 97.2 93 18 100/69 94 06/21/16 22:10 21 06/21/16 22:07 98 21 06/21/16 20:00 97.0 82 17 107/68 95 06/21/16 16:00 97.4 74 18 105/78 94 06/21/16 12:44 95 06/21/16 12:00 97.7 111 18 89/75 94 06/21/16 11:37 16 I/O 06/21/16 06/21/16 06/21/16 06/22/16 06/22/16 06/22/16 07:00 15:00 23:00 07:00 15:00 23:00 Intake Total 240 ml 840 ml 480 ml 480 ml Balance 240 ml 840 ml 480 ml 480 ml Intake Oral 240 ml 840 ml 480 ml 480 ml # Voids 2 3 2 2 # Bowel Movements 1 1 Imaging Last Impressions Chest X-Ray 05/10/16 0000 Signed Impressions: Service Date/Time: Tuesday, May 10, 2016 11:23 - CONCLUSION: Atelectasis at the lung bases. No other acute cardiopulmonary disease identified. Suhail Calderon MD Gastrostomy Tube Placement 05/06/16 0000 Signed Impressions: Service Date/Time: Friday, May 06, 2016 13:15 - CONCLUSION: Uncomplicated gastrostomy tube placement as above. Fabian Blackwood Jr., MD Chest CT 05/03/16 0000 Signed Impressions: Service Date/Time: Tuesday, May 03, 2016 11:33 - CONCLUSION: 1. Emphysema and right upper lobe scarring. Scarring is mildly nodular but still most likely benign. Six-month followup noncontrast chest CT recommended. 2. No lymphadenopathy. 3. Coronary artery calcification. John Mcdonnell MD Abdomen/Pelvis CT 05/03/16 0000 Signed Impressions: Service Date/Time: Tuesday, May 03, 2016 11:33 - CONCLUSION: 1. No malignancy or other acute abnormality seen within the abdomen or pelvis. 2. Diverticulosis of the colon without acute inflammatory changes. 3. Atherosclerotic aorta. No aneurysm. John Mcdonnell MD Neck CT 05/01/16 0000 Signed Impressions: Service Date/Time: April 13:51 - CONCLUSION: 1. Large mass involving the larynx measuring 3.5 x 2.0 cm causing significant compromise to the airway. No adenopathy observed. Malignancy is felt most likely. 2. Severe emphysematous changes. 3. Areas of probable scarring involving the right lung apex. This is nodular in appearance in one area that is partially visualized. I suggest a CT of the thorax to further evaluate. Fabian Blackwood Jr., MD Objective Remarks General: No acute distress. Trach is capped. Heart: Regular rate and rhythm. No murmur. Lungs: Clear to auscultation bilaterally. No wheezes, rales, or rhonchi. Breathing is nonlabored. Abdomen: Soft, nontender, nondistended. PEG tube in place. Extremities: No lower extremity edema. No calf tenderness. Psych: Alert and oriented. Procedures 05/05/16 Laryngeal mass biopsy 05/05/16 tracheostomy 05/06/16 gastrostomy tube placement Urinary Catheter: No Vascular Central Line Catheter: No A/P Problem List: (1) Laryngeal mass ICD Code: J38.7 Status: Acute (2) COPD (chronic obstructive pulmonary disease) ICD Code: J44.9 Status: Chronic (3) Tobacco abuse ICD Code: Z72.0 Status: Chronic (4) Nausea & vomiting ICD Code: R11.2 Status: Resolved (5) Hyponatremia ICD Code: E87.1 Status: Chronic (6) Low grade fever ICD Code: R50.9 Status: Acute (7) Leukocytosis ICD Code: D72.829 Status: Acute Assessment and Plan Reviewed/updated 06/22/16. Patient requesting to have gastrostomy tube removed. Discussed with oncology. Trach management per pulmonology. Chemotherapy/ radiation therapy per oncology. 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 S/P tracheostomy. Continue chemotherapy, radiation therapy. Appreciate pulmonology recommendations regarding tracheostomy, which will apparently be removed soon. 2. COPD: Continue supplemental oxygen. Bronchodilators as needed. 3. Tobacco abuse: Counseled to quit smoking. 4. DVT prophylaxis: JEREMY Romeo. Lovenox. 5. Healthcare associated pneumonia: Treated with vancomycin, cefepime. Discharge Planning Patient to remain hospitalized for chemotherapy, radiation therapy. Plan for discharge when cleared by oncology, pulmonology. Problem Qualifiers (1) COPD (chronic obstructive pulmonary disease): Qualified Code: J42 - Chronic bronchitis, unspecified chronic bronchitis type (2) Leukocytosis: Qualified Code: D72.829 - Leukocytosis, unspecified type Ivan Clayton MD Jun 22, 2016 08:16
[2016-06-22] MEDS: MICONAZOLE NITRATE 2% CREAM 15 GM TOPICAL SCH ×2 (09:00→20:16)
[2016-06-22] MEDS: SODIUM CHLORIDE 0.9% FLUSH 5 ML FLUSH FLUSH SCH ×2 (09:00→20:19)
[2016-06-22] MEDS: MORPHINE SULFATE 15 MG CONTROLLED RELEASE TAB PO SCH ×2 (09:11→20:14)
[2016-06-22] MEDS: DOCUSATE SODIUM 100 MG CAP PO SCH ×3 (09:11→16:58)
[2016-06-22] MEDS: PANTOPRAZOLE SOD 40 MG DELAYED RELEASE TAB PO SCH (09:11)
[2016-06-22] MEDS: guaiFENesin E.R. 600 MG TAB PO SCH ×2 (09:11→20:13)
[2016-06-22] MEDS: DOCUSATE SODIUM 50 MG/SENNA 8.6 MG TAB PO SCH (09:11)
[2016-06-22] MEDS: NICOTINE 7 MG/24 HR PATCH TD SCH (09:13)
[2016-06-22] MEDS: HYDROCORTISONE 2.5% CREAM 30 GM TOPICAL SCH ×2 (09:13→20:15)
[2016-06-22] MEDS: REMOVE OLD NICODERM (NICOTINE) PATCH TD SCH ×2 (09:13→20:16)
[2016-06-22] MEDS: TEMAZEPAM 15 MG CAP PO PRN (20:13)
[2016-06-23] VITALS: BP 102/62; PULSE 92; RESP 17; TEMP 97.3; O2SAT 94
[2016-06-23 04:00] VITALS: BP 137/74; PULSE 93; RESP 16; TEMP 96.8; O2SAT 95
[2016-06-23] MEDS: ENOXAPARIN SODIUM 40 MG/0.4 ML SYRINGE SQ SCH (04:21)
[2016-06-23] MEDS: oxyCODONE/ACETAMINOPHEN 10 MG/325 MG TAB PO PRN ×5 (04:22→22:18)
[2016-06-23 08:00] VITALS: BP 144/78; PULSE 81; RESP 16; TEMP 97.3; O2SAT 95
--- NOTE | 2016-06-23 08:45 | HHI.PR ---
Subjective Remarks Follow up laryngeal cancer. No changes reported. Patient's only complaint at this time is discomfort at PEG tube site. Objective Vitals Vital Signs Date Time Temp Pulse Resp B/P Pulse Ox O2 Delivery O2 Flow Rate FiO2 06/23/16 04:00 96.8 93 16 137/74 95 06/23/16 00:00 97.3 92 17 102/62 94 06/22/16 22:37 98 21 06/22/16 20:00 97.3 84 16 128/78 93 06/22/16 16:00 99.2 81 20 130/77 96 06/22/16 12:00 98.0 82 18 131/72 95 06/22/16 11:09 94 21 I/O 06/22/16 06/22/16 06/22/16 06/23/16 06/23/16 06/23/16 07:00 15:00 23:00 07:00 15:00 23:00 Intake Total 480 ml 960 ml 480 ml 480 ml Balance 480 ml 960 ml 480 ml 480 ml Intake Oral 480 ml 960 ml 480 ml 480 ml # Voids 2 3 2 2 # Bowel Movements 1 1 Imaging Last Impressions Chest X-Ray 05/10/16 0000 Signed Impressions: Service Date/Time: Tuesday, May 10, 2016 11:23 - CONCLUSION: Atelectasis at the lung bases. No other acute cardiopulmonary disease identified. Suhail Calderon MD Gastrostomy Tube Placement 05/06/16 0000 Signed Impressions: Service Date/Time: Friday, May 06, 2016 13:15 - CONCLUSION: Uncomplicated gastrostomy tube placement as above. Fabian Blackwood Jr., MD Chest CT 05/03/16 0000 Signed Impressions: Service Date/Time: Tuesday, May 03, 2016 11:33 - CONCLUSION: 1. Emphysema and right upper lobe scarring. Scarring is mildly nodular but still most likely benign. Six-month followup noncontrast chest CT recommended. 2. No lymphadenopathy. 3. Coronary artery calcification. John Mcdonnell MD Abdomen/Pelvis CT 05/03/16 0000 Signed Impressions: Service Date/Time: Tuesday, May 03, 2016 11:33 - CONCLUSION: 1. No malignancy or other acute abnormality seen within the abdomen or pelvis. 2. Diverticulosis of the colon without acute inflammatory changes. 3. Atherosclerotic aorta. No aneurysm. John Mcdonnell MD Neck CT 05/01/16 0000 Signed Impressions: Service Date/Time: April 13:51 - CONCLUSION: 1. Large mass involving the larynx measuring 3.5 x 2.0 cm causing significant compromise to the airway. No adenopathy observed. Malignancy is felt most likely. 2. Severe emphysematous changes. 3. Areas of probable scarring involving the right lung apex. This is nodular in appearance in one area that is partially visualized. I suggest a CT of the thorax to further evaluate. Fabian Blackwood Jr., MD Objective Remarks General: No acute distress. Trach is capped. Heart: Regular rate and rhythm. No murmur. Lungs: Clear to auscultation bilaterally. No wheezes, rales, or rhonchi. Breathing is nonlabored. Abdomen: Soft, nontender, nondistended. PEG tube in place. Extremities: No lower extremity edema. No calf tenderness. Psych: Alert and oriented. Procedures 05/05/16 Laryngeal mass biopsy 05/05/16 tracheostomy 05/06/16 gastrostomy tube placement Urinary Catheter: No Vascular Central Line Catheter: No A/P Problem List: (1) Laryngeal mass ICD Code: J38.7 Status: Acute (2) COPD (chronic obstructive pulmonary disease) ICD Code: J44.9 Status: Chronic (3) Tobacco abuse ICD Code: Z72.0 Status: Chronic (4) Nausea & vomiting ICD Code: R11.2 Status: Resolved (5) Hyponatremia ICD Code: E87.1 Status: Chronic (6) Low grade fever ICD Code: R50.9 Status: Acute (7) Leukocytosis ICD Code: D72.829 Status: Acute Assessment and Plan Reviewed/updated 06/23/16. No change. Plan for removal of gastrostomy tube near time of discharge. Trach management per pulmonology. Chemotherapy/radiation therapy per oncology. 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 S/P tracheostomy. Continue chemotherapy, radiation therapy. Appreciate pulmonology recommendations regarding tracheostomy, which will apparently be removed soon. 2. COPD: Continue supplemental oxygen. Bronchodilators as needed. 3. Tobacco abuse: Counseled to quit smoking. 4. DVT prophylaxis: SCDs, JEREMY delaney. Lovenox. 5. Healthcare associated pneumonia: Treated with vancomycin, cefepime. Discharge Planning Patient to remain hospitalized for chemotherapy, radiation therapy. Plan for discharge when cleared by oncology, pulmonology. Problem Qualifiers (1) COPD (chronic obstructive pulmonary disease): Qualified Code: J42 - Chronic bronchitis, unspecified chronic bronchitis type (2) Leukocytosis: Qualified Code: D72.829 - Leukocytosis, unspecified type Ivan Clayton MD Jun 23, 2016 08:45
[2016-06-23] MEDS: MORPHINE SULFATE 15 MG CONTROLLED RELEASE TAB PO SCH ×2 (09:02→20:58)
[2016-06-23] MEDS: PANTOPRAZOLE SOD 40 MG DELAYED RELEASE TAB PO SCH (09:02)
[2016-06-23] MEDS: NICOTINE 7 MG/24 HR PATCH TD SCH (09:02)
[2016-06-23] MEDS: DOCUSATE SODIUM 100 MG CAP PO SCH ×3 (09:03→16:55)
[2016-06-23] MEDS: DOCUSATE SODIUM 50 MG/SENNA 8.6 MG TAB PO SCH (09:03)
[2016-06-23] MEDS: guaiFENesin E.R. 600 MG TAB PO SCH ×2 (09:03→20:57)
[2016-06-23] MEDS: SODIUM CHLORIDE 0.9% FLUSH 5 ML FLUSH FLUSH SCH ×2 (09:04→20:59)
[2016-06-23] MEDS: MICONAZOLE NITRATE 2% CREAM 15 GM TOPICAL SCH ×2 (09:05→21:00)
[2016-06-23] MEDS: HYDROCORTISONE 2.5% CREAM 30 GM TOPICAL SCH ×2 (09:05→21:00)
[2016-06-23 09:59] VITALS: O2SAT 98
[2016-06-23 12:00] VITALS: BP 116/72; PULSE 85; RESP 16; TEMP 97.2; O2SAT 96
--- NOTE | 2016-06-23 15:01 | HHI.PR ---
Subjective Remarks ALERT NO SOB TRACH plugged for days no SOB Objective Vital Signs Date Time Temp Pulse Resp B/P Pulse Ox O2 Delivery O2 Flow Rate FiO2 06/23/16 12:00 97.2 85 16 116/72 96 06/23/16 09:59 98 21 06/23/16 08:00 97.3 81 16 144/78 95 06/23/16 04:00 96.8 93 16 137/74 95 06/23/16 00:00 97.3 92 17 102/62 94 06/22/16 22:37 98 21 06/22/16 20:00 97.3 84 16 128/78 93 06/22/16 16:00 99.2 81 20 130/77 96 I/O 06/22/16 06/22/16 06/22/16 06/23/16 06/23/16 06/23/16 07:00 15:00 23:00 07:00 15:00 23:00 Intake Total 480 ml 960 ml 480 ml 480 ml Balance 480 ml 960 ml 480 ml 480 ml Intake Oral 480 ml 960 ml 480 ml 480 ml # Voids 2 3 2 2 # Bowel Movements 1 1 Procedures 05/05/16 Laryngeal mass biopsy 05/05/16 tracheostomy Objective Remarks GENERAL: SKIN: Warm and dry. HEAD: Atraumatic. Normocephalic. EYES: Pupils equal and round. No scleral icterus. No injection or drainage. ENT: No nasal bleeding or discharge. Mucous membranes pink and moist. NECK: Trachea midline. No JVD. TRACH IN PLACE CARDIOVASCULAR: Regular rate and rhythm. RESPIRATORY: No accessory muscle use. Clear to auscultation. Breath sounds equal bilaterally. GASTROINTESTINAL: Abdomen soft, non-tender, nondistended. Hepatic and splenic margins not palpable. MUSCULOSKELETAL: Extremities without clubbing, cyanosis, or edema. No obvious deformities. NEUROLOGICAL: Awake and alert. No obvious cranial nerve deficits. Motor grossly within normal limits. Five out of 5 muscle strength in the arms and legs. Normal speech. PSYCHIATRIC: Appropriate mood and affect; insight and judgment normal. Assessment and Plan Assessment and Plan LARYNGEAL CA S/P TRACH PLAN PULM TOILET REMOVE TRACHEOSTOMY REMOVE FEEDING TUBE , EATING FINE Kamran Andrew MD Jun 23, 2016 15:01
[2016-06-23 20:00] VITALS: BP 110/74; PULSE 83; RESP 18; TEMP 98.5; O2SAT 94
--- NOTE | 2016-06-23 20:17 | MB ---
cc: CHAGO DALY M.D. DATE OF CONSULTATION 06/23/2016 DATE OF [address] Carbajal REASON FOR REFERRAL Discontinuation of PEG tube. HISTORY OF PRESENT ILLNESS A very pleasant 61-year-old gentleman who has throat cancer with a mass. The patient has been smoking for a long time. He is also heavy drinker. He underwent surgical repair. He had a trache and PEG tube placement for nutrition. Currently he is able to eat and drink appropriately. The trache was pulled and he wants the PEG tube removed. PAST MEDICAL HISTORY Significant for: 1. The smoking and alcoholism. 2. Negative surgical or medical history. SOCIAL HISTORY Positive for tobacco and alcohol. ALLERGIES NO KNOWN DRUG ALLERGIES. MEDICATIONS Reviewed in the chart. FAMILY HISTORY Negative. REVIEW OF SYSTEMS All 12-point negative except HPI. The patient now has a trache that was pulled. Without shortness of breath. PHYSICAL EXAMINATION GENERAL: Alert, oriented, no acute distress. VITAL SIGNS: Stable. HEENT: Pupils are round and reactive to light. NECK: The patient has tracheostomy site. CHEST: Prolonged expiratory phase. CARDIOVASCULAR: Regular rate and rhythm. ABDOMEN: Soft, nondistended. There is a PEG tube in the left upper quadrant with some irritation around it. EXTREMITIES: No edema, clubbing or cyanosis. LABORATORY DATA White count 4.1, hemoglobin 11.6, platelets 128. ASSESSMENT/PLAN 1. A 61-year-old gentleman who has laryngeal cancer. The patient had a PEG tube in the past. He is not using it anymore. We are going to pull the PEG tube out today and the patient will continue with oral feeding. 2. Procedure, the PEG tube was pulled with a pull technique after deflating the balloon without immediate complication and a dressing was applied. The patient tolerated the procedure well. MD JORI Chin/KATIA /5:38 PM /8:08 PM
[2016-06-23] MEDS: TEMAZEPAM 15 MG CAP PO PRN (20:57)
[2016-06-23] MEDS: REMOVE OLD NICODERM (NICOTINE) PATCH TD SCH (21:00)
[2016-06-24] VITALS: BP 120/65; PULSE 77; RESP 18; TEMP 98.8; O2SAT 96
[2016-06-24] MEDS: oxyCODONE/ACETAMINOPHEN 10 MG/325 MG TAB PO PRN ×5 (05:57→22:39)
[2016-06-24] MEDS: ENOXAPARIN SODIUM 40 MG/0.4 ML SYRINGE SQ SCH (05:57)
--- NOTE | 2016-06-24 07:53 | PD.ONC.PN ---
Subjective Subjective Remarks Patient seen and examined, he reports his breathing is much improved. Tracheostomy was discontinued yesterday as was his PEG tube. He tells me he has 10 fractions of radiation remaining including today. Other than having some burning of the skin on both sides of his neck and some burning of his throat he reports feeling well. Today he will begin his sixth week of treatment. Objective Data Date Time Temp Pulse Resp B/P Pulse Ox O2 Delivery O2 Flow Rate FiO2 06/24/16 06:59 16 06/24/16 00:00 98.8 77 18 120/65 96 06/23/16 22:18 16 06/23/16 20:00 98.5 83 18 110/74 94 06/23/16 12:00 97.2 85 16 116/72 96 06/23/16 09:59 98 21 06/23/16 08:00 97.3 81 16 144/78 95 Administered Medications Medications (Trade) Dose Ordered Sig/Darryl Route PRN Reason Start Time Stop Time Status Last Admin Dose Admin IV Flush (NS Flush) 2 ml UNSCH PRN FLUSH FLUSH AFTER USING IV ACCESS 05/01/16 15:15 05/21/16 13:19 IV Flush (NS Flush) 2 ml BID FLUSH 05/01/16 21:00 06/23/16 20:59 Ondansetron HCl (Zofran Inj) 4 mg Q6H PRN IVP NAUSEA OR VOMITING 05/01/16 15:15 05/29/16 13:46 Metoclopramide HCl (Reglan Inj) 5 mg Q8H PRN IV PUSH NAUSEA 05/07/16 22:15 06/12/16 17:41 Docusate Sodium (Colace) 100 mg TID PO 05/08/16 09:00 06/23/16 16:55 Nicotine (Habitrol 7 Mg Patch.24 Hr) 1 patch DAILY TD 05/09/16 16:00 06/23/16 09:02 Miscellaneous Information 1 HS TD 05/09/16 21:00 06/23/16 21:00 Guaifenesin/ Dextromethorphan (Robitussin Dm 200-20 Mg/10 ml Liq) 10 ml Q6H PRN PO COUGH 05/11/16 17:00 05/13/16 04:13 Guaifenesin (Mucinex Er) 600 mg BID PO 05/11/16 21:30 06/23/16 20:57 Benzonatate (Tessalon) 200 mg TID PRN PO cough interfering w/rest 05/11/16 21:30 05/14/16 20:39 Acetaminophen (Tylenol) 650 mg Q6HR PRN PO fever > 100.4 05/11/16 21:30 05/17/16 13:06 Pantoprazole Sodium (Protonix) 40 mg DAILY PO 05/12/16 09:00 06/23/16 09:02 Enoxaparin Sodium (Lovenox Inj) 40 mg Q24H SQ 05/12/16 06:00 06/24/16 05:57 Acetaminophen (Tylenol) 650 mg Q6H PRN PO PAIN SCALE 1 TO 2 05/13/16 11:15 06/13/16 06:17 Morphine Sulfate (Morphine Inj) 4 mg Q3H PRN IV BREAKTHROUGH PAIN 05/13/16 11:15 06/17/16 20:55 Morphine Sulfate (Oramorph Sr) 15 mg Q12HR PO 05/25/16 21:00 06/23/16 20:58 Oxycodone/ Acetaminophen (Percocet 5-325 Mg) 1 tab Q4H PRN PO PAIN SCALE 3 TO 5 05/27/16 13:15 06/15/16 04:59 Oxycodone/ Acetaminophen (Percocet 10-325 Mg) 1 tab Q4H PRN PO PAIN SCALE 6 TO 10 05/27/16 13:15 06/24/16 05:57 Temazepam (Restoril) 15 mg HS PRN PO insomnia 05/28/16 21:00 06/23/16 20:57 Hydrocortisone (Eldecort 2.5% Cream) 1 applic BID TOPICAL 06/01/16 12:15 06/23/16 21:00 Miconazole Nitrate (Micatin 2% Cream) 1 applic Q12HR TOPICAL 06/02/16 21:00 06/19/16 20:11 Senna/Docusate Sodium (Adenike-Colace) 1 tab DAILY PO 06/05/16 12:00 06/23/16 09:03 Objective Remarks GENERAL: Middle-aged male, sitting up in bed, tracheostomy has been discontinued in the anterior. He sitting up in bed, speaks to me in a hoarse voice but in full sentences. SKIN: Warm and dry. HEAD: Normocephalic. EYES: No scleral icterus. No injection or drainage. NECK: Supple, trachea midline. No JVD or lymphadenopathy. Tracheostomy which is. LYMPHATIC: No adenopathy. CARDIOVASCULAR: Regular rate and rhythm without murmurs. RESPIRATORY: Prolonged expiratory phase, scattered rhonchi. GASTROINTESTINAL: Abdomen soft, non-tender, nondistended. Feeding tube now removed. EXTREMITIES: No cyanosis, or edema. MUSCULOSKELETAL: Adequate muscle tone. NEUROLOGICAL: No obvious focal deficit. Awake, alert, and oriented x3. PSYCHIATRIC: Appropriate mood and affect; insight and judgment normal. 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 05/20: cisplatin 40 mg/m2 05/27: cisplatin 40 mg/m2 06/03: cisplatin 40 mg/m2 05/21: started XRT--continue Thursday-Thursday for 35 treatments 06/17: cisplatin 40mg/m2 Plan 1. Squamous cell carcinoma: received 25/35 XRT treatments thus far. He will receive 6th weekly dose of cisplatin today pending labs; CBC and CMP. 2. Nutrition: On full oral diet, weight is holding stable. 3. DVT prophylaxis: Lovenox for prophylaxis. Disposition: Proceed with 6 weekly doses cisplatin today. He may be discharged at any time if safe discharge disposition is established. Urban Lofton MD Jun 24, 2016 07:53
[2016-06-24 08:00] VITALS: BP 107/70; PULSE 82; RESP 18; TEMP 97.7; O2SAT 96
--- NOTE | 2016-06-24 08:00 | HHI.PR ---
Subjective Remarks Follow up laryngeal cancer. Patient reports burning pain in the skin of his neck. No other complaints. PEG and trach removed yesterday. Objective Vitals Vital Signs Date Time Temp Pulse Resp B/P Pulse Ox O2 Delivery O2 Flow Rate FiO2 06/24/16 06:59 16 06/24/16 00:00 98.8 77 18 120/65 96 06/23/16 22:18 16 06/23/16 20:00 98.5 83 18 110/74 94 06/23/16 12:00 97.2 85 16 116/72 96 06/23/16 09:59 98 21 06/23/16 08:00 97.3 81 16 144/78 95 I/O 06/23/16 06/23/16 06/23/16 06/24/16 06/24/16 06/24/16 07:00 15:00 23:00 07:00 15:00 23:00 Intake Total 480 ml 240 ml Balance 480 ml 240 ml Intake Oral 480 ml 240 ml # Voids 2 2 Imaging Last Impressions Chest X-Ray 05/10/16 0000 Signed Impressions: Service Date/Time: Tuesday, May 10, 2016 11:23 - CONCLUSION: Atelectasis at the lung bases. No other acute cardiopulmonary disease identified. Suhail Calderon MD Gastrostomy Tube Placement 05/06/16 0000 Signed Impressions: Service Date/Time: Friday, May 06, 2016 13:15 - CONCLUSION: Uncomplicated gastrostomy tube placement as above. Fabian Blackwood Jr., MD Chest CT 05/03/16 0000 Signed Impressions: Service Date/Time: Tuesday, May 03, 2016 11:33 - CONCLUSION: 1. Emphysema and right upper lobe scarring. Scarring is mildly nodular but still most likely benign. Six-month followup noncontrast chest CT recommended. 2. No lymphadenopathy. 3. Coronary artery calcification. John Mcdonnell MD Abdomen/Pelvis CT 05/03/16 0000 Signed Impressions: Service Date/Time: Tuesday, May 03, 2016 11:33 - CONCLUSION: 1. No malignancy or other acute abnormality seen within the abdomen or pelvis. 2. Diverticulosis of the colon without acute inflammatory changes. 3. Atherosclerotic aorta. No aneurysm. John Mcdonnell MD Neck CT 05/01/16 0000 Signed Impressions: Service Date/Time: April 13:51 - CONCLUSION: 1. Large mass involving the larynx measuring 3.5 x 2.0 cm causing significant compromise to the airway. No adenopathy observed. Malignancy is felt most likely. 2. Severe emphysematous changes. 3. Areas of probable scarring involving the right lung apex. This is nodular in appearance in one area that is partially visualized. I suggest a CT of the thorax to further evaluate. Fabian Blackwood Jr., MD Objective Remarks General: No acute distress. Heart: Regular rate and rhythm. No murmur. Lungs: Clear to auscultation bilaterally. No wheezes, rales, or rhonchi. Breathing is nonlabored. Abdomen: Soft, nontender, nondistended. Extremities: No lower extremity edema. No calf tenderness. Psych: Alert and oriented. Procedures 05/05/16 Laryngeal mass biopsy 05/05/16 tracheostomy 05/06/16 gastrostomy tube placement Urinary Catheter: No Vascular Central Line Catheter: No A/P Problem List: (1) Laryngeal mass ICD Code: J38.7 Status: Acute (2) COPD (chronic obstructive pulmonary disease) ICD Code: J44.9 Status: Chronic (3) Tobacco abuse ICD Code: Z72.0 Status: Chronic (4) Nausea & vomiting ICD Code: R11.2 Status: Resolved (5) Hyponatremia ICD Code: E87.1 Status: Chronic (6) Low grade fever ICD Code: R50.9 Status: Acute (7) Leukocytosis ICD Code: D72.829 Status: Acute Assessment and Plan Reviewed/updated 06/24/16. PEG and trach removed. Chemotherapy/radiation therapy per oncology. 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 S/P tracheostomy. Continue chemotherapy, radiation therapy. Appreciate pulmonology recommendations regarding tracheostomy, which will apparently be removed soon. 2. COPD: Continue supplemental oxygen. Bronchodilators as needed. 3. Tobacco abuse: Counseled to quit smoking. 4. DVT prophylaxis: JEREMY Romeo. Lovenox. 5. Healthcare associated pneumonia: Treated with vancomycin, cefepime. Discharge Planning Patient is clear for discharge, but no safe discharge disposition at this time. Case management assisting with placement, which will be difficult due to the patient's insurance. Problem Qualifiers (1) COPD (chronic obstructive pulmonary disease): Qualified Code: J42 - Chronic bronchitis, unspecified chronic bronchitis type (2) Leukocytosis: Qualified Code: D72.829 - Leukocytosis, unspecified type Ivan Clayton MD Jun 24, 2016 08:00
[2016-06-24] MEDS: PANTOPRAZOLE SOD 40 MG DELAYED RELEASE TAB PO SCH (08:33)
[2016-06-24] MEDS: DOCUSATE SODIUM 100 MG CAP PO SCH ×3 (08:33→18:31)
[2016-06-24] MEDS: DOCUSATE SODIUM 50 MG/SENNA 8.6 MG TAB PO SCH (08:33)
[2016-06-24] MEDS: NICOTINE 7 MG/24 HR PATCH TD SCH (08:33)
[2016-06-24] MEDS: guaiFENesin E.R. 600 MG TAB PO SCH ×2 (08:34→19:41)
[2016-06-24] MEDS: MORPHINE SULFATE 15 MG CONTROLLED RELEASE TAB PO SCH ×2 (08:34→19:41)
[2016-06-24] MEDS: HYDROCORTISONE 2.5% CREAM 30 GM TOPICAL SCH ×2 (08:35→19:43)
[2016-06-24] MEDS: MICONAZOLE NITRATE 2% CREAM 15 GM TOPICAL SCH ×2 (08:37→19:42)
[2016-06-24] MEDS: SODIUM CHLORIDE 0.9% FLUSH 5 ML FLUSH FLUSH SCH ×2 (08:37→19:43)
[2016-06-24] MEDS ORDERED: PROCHLORPERAZINE MALEATE 10 MG TAB PO PRN (08:45)
[2016-06-24] MEDS ORDERED: POTASSIUM CHLORIDE IV ONE ×2 (10:00→12:00)
[2016-06-24] MEDS ORDERED: SODIUM CHLORID 0.9% IV ONE (10:00)
[2016-06-24 11:09] LABS: AUTOMATED NEUTROPHIL # 1.3 TH/MM3 (1.8-7.7); BASOPHIL % 0.9 % (0.0-2.0); EOSINOPHIL # 0.1 TH/MM3 (0-0.4); EOSINOPHIL % 3.6 % (0.0-4.0); HEMO FLAGS DIFF FINAL; LYMPH % 16.6 % (9.0-44.0); LYMPHOCYTE # 0.3 TH/MM3 (1.0-4.8); MEAN CORPUSCULAR HEMOGLOBIN 31.4 PG (27.0-34.0); MEAN CORPUSCULAR HGB CONC 34.5 % (32.0-36.0); MONO % 16.8 % (0.0-8.0); NEUT % 62.1 % (16.0-70.0); PLATELET COUNT 164 TH/MM3 (150-450); RED BLOOD COUNT 3.73 MIL/MM3 (4.50-5.90); RED CELL DISTRIBUTION WIDTH 14.8 % (11.6-17.2); WHITE BLOOD COUNT 2.1 TH/MM3 (4.0-11.0)
[2016-06-24 11:35] LABS: ANION GAP 7 MEQ/L (5-15); AST (GOT) 10 U/L (15-37); BICARBONATE 29.1 MEQ/L (21.0-32.0); BLOOD UREA NITROGEN 21 MG/DL (7-18); CHLORIDE 100 MEQ/L (98-107); GLOMERULAR FILTRATION RATE 119 ML/MIN (>89); POTASSIUM 4.4 MEQ/L (3.5-5.1); SODIUM (NA) 136 MEQ/L (136-145)
[2016-06-24 11:38] LABS: ALKALINE PHOSPHATASE 71 U/L (45-117); ALT (GPT) 17 U/L (12-78); TOTAL BILIRUBIN ADULT 0.4 MG/DL (0.2-1.0)
[2016-06-24] MEDS ORDERED: MAGNESIUM SULFATE IV ONE (12:00)
[2016-06-24] MEDS ORDERED: [UNRECOGNIZED DRUG - OTHER] IV ONE (12:00)
[2016-06-24 12:09] VITALS: BP 121/91; PULSE 74; RESP 18; TEMP 97.3; O2SAT 95
[2016-06-24] MEDS: DEXAMETHASONE INJ 10 MG in SODIUM CHLORIDE 0.9% INJ 50 ML IV SCH (15:12)
[2016-06-24] MEDS: GRANISETRON HCL 1 MG/ML VIAL IV SCH (15:21)
[2016-06-24] MEDS: FUROSEMIDE 40 MG/4 ML VIAL IV PUSH SCH (15:22)
[2016-06-24] MEDS: MANNITOL 12.5 GM/50 ML VIAL IV SCH (15:41)
[2016-06-24 16:09] VITALS: BP 119/78; PULSE 76; RESP 20; TEMP 98.3; O2SAT 95
[2016-06-24] MEDS: POTASSIUM CHLORIDE IV SCH ×2 (16:17→17:30)
[2016-06-24] MEDS: DEXT 5% IV SCH ×2 (16:17→17:30)
[2016-06-24] MEDS: NACL 0.45% IV SCH ×2 (16:17→17:30)
[2016-06-24] MEDS: SODIUM CHLORIDE 0.9% IV SCH (16:19)
[2016-06-24] MEDS: CISPLATIN IV SCH (16:19)
--- NOTE | 2016-06-24 16:50 | HHI.PR ---
Subjective Remarks ALERT NO SOB trach removed Objective Vital Signs Date Time Temp Pulse Resp B/P Pulse Ox O2 Delivery O2 Flow Rate FiO2 06/24/16 16:09 98.3 76 20 119/78 95 06/24/16 12:09 97.3 74 18 121/91 95 06/24/16 08:00 97.7 82 18 107/70 96 06/24/16 06:59 16 06/24/16 00:00 98.8 77 18 120/65 96 06/23/16 22:18 16 06/23/16 20:00 98.5 83 18 110/74 94 I/O 06/23/16 06/23/16 06/23/16 06/24/16 06/24/16 06/24/16 06:59 14:59 22:59 06:59 14:59 22:59 Intake Total 480 ml 240 ml 480 ml Balance 480 ml 240 ml 480 ml Intake Oral 480 ml 240 ml 480 ml # Voids 2 2 3 Result Diagram: 06/24/16 1052 06/24/16 1052 Procedures 05/05/16 Laryngeal mass biopsy 05/05/16 tracheostomy Objective Remarks GENERAL: SKIN: Warm and dry. HEAD: Atraumatic. Normocephalic. EYES: Pupils equal and round. No scleral icterus. No injection or drainage. ENT: No nasal bleeding or discharge. Mucous membranes pink and moist. NECK: Trachea midline. No JVD. TRACH IN PLACE CARDIOVASCULAR: Regular rate and rhythm. RESPIRATORY: No accessory muscle use. Clear to auscultation. Breath sounds equal bilaterally. GASTROINTESTINAL: Abdomen soft, non-tender, nondistended. Hepatic and splenic margins not palpable. MUSCULOSKELETAL: Extremities without clubbing, cyanosis, or edema. No obvious deformities. NEUROLOGICAL: Awake and alert. No obvious cranial nerve deficits. Motor grossly within normal limits. Five out of 5 muscle strength in the arms and legs. Normal speech. PSYCHIATRIC: Appropriate mood and affect; insight and judgment normal. Assessment and Plan Assessment and Plan LARYNGEAL CA doing well trach removed PLAN increase activity Kamran Andrew MD Jun 24, 2016 16:49
[2016-06-24] MEDS: SILVER SULFADIAZINE 1% CR 50 GM JAR TOPICAL SCH (19:33)
[2016-06-24] MEDS: REMOVE OLD NICODERM (NICOTINE) PATCH TD SCH (19:41)
[2016-06-24 20:00] VITALS: BP 129/82; PULSE 90; RESP 18; TEMP 97.5; O2SAT 95
[2016-06-24] MEDS: TEMAZEPAM 15 MG CAP PO PRN (21:37)
[2016-06-25] VITALS (8 sets, daily range): BP systolic 113–135; BP diastolic 73–84; PULSE 72–90; RESP 16–20; TEMP 96.3–97.9; O2SAT 94–98
[2016-06-25] MEDS: oxyCODONE/ACETAMINOPHEN 10 MG/325 MG TAB PO PRN ×5 (04:37→21:37)
[2016-06-25] MEDS: ENOXAPARIN SODIUM 40 MG/0.4 ML SYRINGE SQ SCH (04:38)
--- NOTE | 2016-06-25 07:48 | HHI.PR ---
Subjective Remarks Follow-up laryngeal cancer. No complaints at this time. Abdominal discomfort from PEG tube has improved significantly. Still having some burning pain in the skin of his neck, but better with cream that he has been using. Objective Vitals Vital Signs Date Time Temp Pulse Resp B/P Pulse Ox O2 Delivery O2 Flow Rate FiO2 06/25/16 04:30 96.9 88 16 113/74 95 06/25/16 00:00 96.9 90 16 120/76 95 06/24/16 20:00 97.5 90 18 129/82 95 06/24/16 16:09 98.3 76 20 119/78 95 06/24/16 12:09 97.3 74 18 121/91 95 06/24/16 08:00 97.7 82 18 107/70 96 I/O 06/24/16 06/24/16 06/24/16 06/25/16 06/25/16 06/25/16 07:00 15:00 23:00 07:00 15:00 23:00 Intake Total 480 ml 480 ml Balance 480 ml 480 ml Intake Oral 480 ml 480 ml # Voids 3 2 1 Result Diagram: 06/24/16 1052 06/24/16 1052 Imaging Last Impressions Chest X-Ray 05/10/16 0000 Signed Impressions: Service Date/Time: Tuesday, May 10, 2016 11:23 - CONCLUSION: Atelectasis at the lung bases. No other acute cardiopulmonary disease identified. Suhail Calderon MD Gastrostomy Tube Placement 05/06/16 0000 Signed Impressions: Service Date/Time: Friday, May 06, 2016 13:15 - CONCLUSION: Uncomplicated gastrostomy tube placement as above. Fabian Blackwood Jr., MD Chest CT 05/03/16 0000 Signed Impressions: Service Date/Time: Tuesday, May 03, 2016 11:33 - CONCLUSION: 1. Emphysema and right upper lobe scarring. Scarring is mildly nodular but still most likely benign. Six-month followup noncontrast chest CT recommended. 2. No lymphadenopathy. 3. Coronary artery calcification. John Mcdonnell MD Abdomen/Pelvis CT 05/03/16 0000 Signed Impressions: Service Date/Time: Tuesday, May 03, 2016 11:33 - CONCLUSION: 1. No malignancy or other acute abnormality seen within the abdomen or pelvis. 2. Diverticulosis of the colon without acute inflammatory changes. 3. Atherosclerotic aorta. No aneurysm. John Mcdonnell MD Neck CT 05/01/16 0000 Signed Impressions: Service Date/Time: April 13:51 - CONCLUSION: 1. Large mass involving the larynx measuring 3.5 x 2.0 cm causing significant compromise to the airway. No adenopathy observed. Malignancy is felt most likely. 2. Severe emphysematous changes. 3. Areas of probable scarring involving the right lung apex. This is nodular in appearance in one area that is partially visualized. I suggest a CT of the thorax to further evaluate. Fabian Blackwood Jr., MD Objective Remarks General: No acute distress. Heart: Regular rate and rhythm. No murmur. Lungs: Clear to auscultation bilaterally. No wheezes, rales, or rhonchi. Breathing is nonlabored. Abdomen: Soft, nontender, nondistended. Extremities: No lower extremity edema. No calf tenderness. Psych: Alert and oriented. Procedures 05/05/16 Laryngeal mass biopsy 05/05/16 tracheostomy 05/06/16 gastrostomy tube placement Urinary Catheter: No Vascular Central Line Catheter: No A/P Problem List: (1) Laryngeal mass ICD Code: J38.7 Status: Acute (2) COPD (chronic obstructive pulmonary disease) ICD Code: J44.9 Status: Chronic (3) Tobacco abuse ICD Code: Z72.0 Status: Chronic (4) Nausea & vomiting ICD Code: R11.2 Status: Resolved (5) Hyponatremia ICD Code: E87.1 Status: Chronic (6) Low grade fever ICD Code: R50.9 Status: Acute (7) Leukocytosis ICD Code: D72.829 Status: Acute Assessment and Plan Reviewed/updated 06/25/16. PEG and trach removed. Chemotherapy/radiation therapy per oncology. 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 S/P tracheostomy. Continue chemotherapy, radiation therapy. Appreciate pulmonology recommendations. 2. COPD: Continue supplemental oxygen. Bronchodilators as needed. 3. Tobacco abuse: Counseled to quit smoking. 4. DVT prophylaxis: SCDs, JEREMY delaney. Lovenox. 5. Healthcare associated pneumonia: Treated with vancomycin, cefepime. Discharge Planning Patient is medically clear for discharge, but no safe discharge disposition at this time. Case management unable to arrange SNF as patient does not have insurance that will cover his chemotherapy/radiation therapy. Problem Qualifiers (1) COPD (chronic obstructive pulmonary disease): Qualified Code: J42 - Chronic bronchitis, unspecified chronic bronchitis type (2) Leukocytosis: Qualified Code: D72.829 - Leukocytosis, unspecified type Ivan Clayton MD Jun 25, 2016 07:48
[2016-06-25] MEDS: NICOTINE 7 MG/24 HR PATCH TD SCH (08:31)
[2016-06-25] MEDS: DOCUSATE SODIUM 50 MG/SENNA 8.6 MG TAB PO SCH (08:32)
[2016-06-25] MEDS: DOCUSATE SODIUM 100 MG CAP PO SCH ×3 (08:32→17:40)
[2016-06-25] MEDS: PANTOPRAZOLE SOD 40 MG DELAYED RELEASE TAB PO SCH (08:32)
[2016-06-25] MEDS: MORPHINE SULFATE 15 MG CONTROLLED RELEASE TAB PO SCH ×2 (08:32→21:38)
[2016-06-25] MEDS: guaiFENesin E.R. 600 MG TAB PO SCH ×2 (08:32→21:37)
[2016-06-25] MEDS: SODIUM CHLORIDE 0.9% FLUSH 5 ML FLUSH FLUSH SCH ×2 (08:35→21:00)
[2016-06-25] MEDS: SILVER SULFADIAZINE 1% CR 50 GM JAR TOPICAL SCH ×2 (08:36→21:00)
[2016-06-25] MEDS: MICONAZOLE NITRATE 2% CREAM 15 GM TOPICAL SCH ×2 (08:37→21:00)
[2016-06-25] MEDS: HYDROCORTISONE 2.5% CREAM 30 GM TOPICAL SCH ×2 (08:37→21:00)
[2016-06-25] MEDS: REMOVE OLD NICODERM (NICOTINE) PATCH TD SCH (21:00)
[2016-06-25] MEDS: TEMAZEPAM 15 MG CAP PO PRN (21:37)
[2016-06-26] VITALS: BP 110/69; PULSE 77; RESP 16; TEMP 97.1; O2SAT 94
[2016-06-26 05:38] VITALS: BP 118/81; PULSE 82; RESP 18; TEMP 97; O2SAT 97
[2016-06-26] MEDS: oxyCODONE/ACETAMINOPHEN 10 MG/325 MG TAB PO PRN ×5 (06:06→22:19)
[2016-06-26] MEDS: ENOXAPARIN SODIUM 40 MG/0.4 ML SYRINGE SQ SCH (06:07)
[2016-06-26 08:00] VITALS: BP 120/82; PULSE 88; RESP 16; TEMP 97.6; O2SAT 96
--- NOTE | 2016-06-26 08:28 | HHI.PR ---
Subjective Remarks ALERT NO SOB trach removed Objective Vital Signs Date Time Temp Pulse Resp B/P Pulse Ox O2 Delivery O2 Flow Rate FiO2 06/26/16 07:24 18 06/26/16 05:38 97.0 82 18 118/81 97 06/26/16 00:00 97.1 77 16 110/69 94 06/25/16 23:20 16 06/25/16 20:16 94 21 06/25/16 20:00 97.0 74 18 114/73 95 06/25/16 15:50 96.3 72 20 135/84 94 06/25/16 11:50 97.0 74 20 123/77 98 06/25/16 10:20 95 Nasal Cannula 21 I/O 06/25/16 06/25/16 06/25/16 06/26/16 06/26/16 06/26/16 07:00 15:00 23:00 07:00 15:00 23:00 Intake Total 600 ml Balance 600 ml Intake Oral 600 ml # Voids 1 2 2 # Bowel Movements 0 Result Diagram: 06/24/16 1052 06/24/16 1052 Procedures 05/05/16 Laryngeal mass biopsy 05/05/16 tracheostomy Objective Remarks GENERAL: SKIN: Warm and dry. HEAD: Atraumatic. Normocephalic. EYES: Pupils equal and round. No scleral icterus. No injection or drainage. ENT: No nasal bleeding or discharge. Mucous membranes pink and moist. NECK: Trachea midline. No JVD. TRACH IN PLACE CARDIOVASCULAR: Regular rate and rhythm. RESPIRATORY: No accessory muscle use. Clear to auscultation. Breath sounds equal bilaterally. GASTROINTESTINAL: Abdomen soft, non-tender, nondistended. Hepatic and splenic margins not palpable. MUSCULOSKELETAL: Extremities without clubbing, cyanosis, or edema. No obvious deformities. NEUROLOGICAL: Awake and alert. No obvious cranial nerve deficits. Motor grossly within normal limits. Five out of 5 muscle strength in the arms and legs. Normal speech. PSYCHIATRIC: Appropriate mood and affect; insight and judgment normal. Assessment and Plan Assessment and Plan LARYNGEAL CA doing well trach removed PLAN increase activity Kamran Andrew MD Jun 26, 2016 08:28
[2016-06-26] MEDS: DOCUSATE SODIUM 50 MG/SENNA 8.6 MG TAB PO SCH (09:40)
[2016-06-26] MEDS: MORPHINE SULFATE 15 MG CONTROLLED RELEASE TAB PO SCH ×2 (09:40→20:01)
[2016-06-26] MEDS: guaiFENesin E.R. 600 MG TAB PO SCH ×2 (09:40→20:01)
[2016-06-26] MEDS: DOCUSATE SODIUM 100 MG CAP PO SCH ×3 (09:41→18:35)
[2016-06-26] MEDS: NICOTINE 7 MG/24 HR PATCH TD SCH (09:41)
[2016-06-26] MEDS: PANTOPRAZOLE SOD 40 MG DELAYED RELEASE TAB PO SCH (09:41)
[2016-06-26] MEDS: SODIUM CHLORIDE 0.9% FLUSH 5 ML FLUSH FLUSH SCH ×2 (09:43→20:01)
[2016-06-26] MEDS: SILVER SULFADIAZINE 1% CR 50 GM JAR TOPICAL SCH ×2 (09:47→20:02)
[2016-06-26] MEDS: HYDROCORTISONE 2.5% CREAM 30 GM TOPICAL SCH ×2 (09:48→20:03)
[2016-06-26] MEDS: MICONAZOLE NITRATE 2% CREAM 15 GM TOPICAL SCH ×2 (09:48→20:03)
[2016-06-26 12:00] VITALS: BP 122/72; PULSE 80; RESP 16; TEMP 96.8; O2SAT 95
[2016-06-26 16:00] VITALS: BP 119/76; PULSE 81; RESP 16; TEMP 97.8; O2SAT 94
--- NOTE | 2016-06-26 16:12 | HHI.PR ---
Subjective Remarks Follow for laryngeal cancer Patient is stable, shortness of breath stable, no fever or chills. Only complaint is that he has not been sleeping well, almost did not sleep last night. Objective Vitals Vital Signs Date Time Temp Pulse Resp B/P Pulse Ox O2 Delivery O2 Flow Rate FiO2 06/26/16 14:56 16 06/26/16 14:56 16 06/26/16 08:00 97.6 88 16 120/82 96 06/26/16 05:38 97.0 82 18 118/81 97 06/26/16 00:00 97.1 77 16 110/69 94 06/25/16 20:16 94 21 06/25/16 20:00 97.0 74 18 114/73 95 I/O 06/25/16 06/25/16 06/25/16 06/26/16 06/26/16 06/26/16 07:00 15:00 23:00 07:00 15:00 23:00 Intake Total 600 ml Balance 600 ml Intake Oral 600 ml # Voids 1 2 2 # Bowel Movements 0 Result Diagram: 06/24/16 1052 06/24/16 1052 Objective Remarks General: No acute distress. Heart: Regular rate and rhythm. No murmur. Tracheal site with yellowish discharge. Lungs: Clear to auscultation bilaterally. No wheezes, rales, or rhonchi. Breathing is nonlabored. Abdomen: Soft, nontender, nondistended. Extremities: No lower extremity edema. No calf tenderness. Psych: Alert and oriented. Procedures 05/05/16 Laryngeal mass biopsy 05/05/16 tracheostomy 05/06/16 gastrostomy tube placement A/P Problem List: (1) Laryngeal mass ICD Code: J38.7 Status: Acute (2) COPD (chronic obstructive pulmonary disease) ICD Code: J44.9 Status: Chronic (3) Tobacco abuse ICD Code: Z72.0 Status: Chronic (4) Nausea & vomiting ICD Code: R11.2 Status: Resolved (5) Hyponatremia ICD Code: E87.1 Status: Chronic (6) Low grade fever ICD Code: R50.9 Status: Acute (7) Leukocytosis ICD Code: D72.829 Status: Acute Assessment and Plan 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 S/P tracheostomy. Continue chemotherapy with cisplatin for 6 weeks, continue radiation therapy. Appreciate pulmonology recommendations. 2. COPD: Continue supplemental oxygen. Bronchodilators as needed. 3. Tobacco abuse: Counseled to quit smoking. 4. DVT prophylaxis: JEREMY Romeo. Lovenox. 5. Healthcare associated pneumonia: Treated with vancomycin, cefepime. 6. Insomnia-increase Restoril Discharge Planning Patient is medically clear for discharge, but no safe discharge disposition at this time. Case management unable to arrange SNF as patient does not have insurance that will cover his chemotherapy/radiation therapy. Problem Qualifiers (1) COPD (chronic obstructive pulmonary disease): Qualified Code: J42 - Chronic bronchitis, unspecified chronic bronchitis type (2) Leukocytosis: Qualified Code: D72.829 - Leukocytosis, unspecified type Maggie Bains MD Jun 26, 2016 16:12
[2016-06-26 20:00] VITALS: BP 106/71; PULSE 87; RESP 18; TEMP 96.6; O2SAT 95
[2016-06-26] MEDS: REMOVE OLD NICODERM (NICOTINE) PATCH TD SCH (20:03)
[2016-06-26] MEDS: TEMAZEPAM 15 MG CAP PO PRN (22:19)
[2016-06-26] MEDS: guaiFENesin/DEXTROMETHORPHAN 200 MG/20 MG/10 ML CUP PO PRN (22:19)
[2016-06-27] VITALS (7 sets, daily range): BP systolic 103–129; BP diastolic 67–95; PULSE 79–96; RESP 17–20; TEMP 97.1–97.8; O2SAT 93–96
[2016-06-27] MEDS: oxyCODONE/ACETAMINOPHEN 10 MG/325 MG TAB PO PRN ×5 (03:46→23:35)
[2016-06-27] MEDS: ENOXAPARIN SODIUM 40 MG/0.4 ML SYRINGE SQ SCH (06:36)
[2016-06-27] MEDS: SODIUM CHLORIDE 0.9% FLUSH 5 ML FLUSH FLUSH SCH ×2 (08:08→21:33)
[2016-06-27] MEDS: DOCUSATE SODIUM 100 MG CAP PO SCH ×3 (08:08→17:55)
[2016-06-27] MEDS: DOCUSATE SODIUM 50 MG/SENNA 8.6 MG TAB PO SCH (08:08)
[2016-06-27] MEDS: guaiFENesin E.R. 600 MG TAB PO SCH ×2 (08:08→21:32)
[2016-06-27] MEDS: MORPHINE SULFATE 15 MG CONTROLLED RELEASE TAB PO SCH ×2 (08:08→21:33)
[2016-06-27] MEDS: NICOTINE 7 MG/24 HR PATCH TD SCH (08:08)
[2016-06-27] MEDS: PANTOPRAZOLE SOD 40 MG DELAYED RELEASE TAB PO SCH (08:08)
[2016-06-27] MEDS: MICONAZOLE NITRATE 2% CREAM 15 GM TOPICAL SCH ×2 (08:09→21:00)
[2016-06-27] MEDS: HYDROCORTISONE 2.5% CREAM 30 GM TOPICAL SCH ×2 (08:09→21:00)
[2016-06-27] MEDS: SILVER SULFADIAZINE 1% CR 50 GM JAR TOPICAL SCH ×2 (08:09→21:00)
--- NOTE | 2016-06-27 09:10 | HHI.PR ---
Subjective Remarks Follow-up for laryngeal cancer No overnight events, slept better with an increased dose of Restoril. Breathing is stable, no cough, no fever or chills. Had radiotherapy yesterday. Objective Vitals Vital Signs Date Time Temp Pulse Resp B/P Pulse Ox O2 Delivery O2 Flow Rate FiO2 06/27/16 08:07 97.5 79 20 127/73 95 06/27/16 05:00 20 06/27/16 04:00 97.1 91 17 121/72 96 06/27/16 00:00 97.7 87 18 110/77 95 06/26/16 22:00 20 06/26/16 20:00 96.6 87 18 106/71 95 06/26/16 16:00 97.8 81 16 119/76 94 06/26/16 12:00 96.8 80 16 122/72 95 I/O 06/26/16 06/26/16 06/26/16 06/27/16 06/27/16 06/27/16 07:00 15:00 23:00 07:00 15:00 23:00 Intake Total 720 ml 480 ml Balance 720 ml 480 ml Intake Oral 720 ml 480 ml # Voids 2 4 3 Result Diagram: 06/24/16 1052 06/24/16 1052 Objective Remarks General: No acute distress. Heart: Regular rate and rhythm. No murmur. Tracheal site with yellowish discharge and skin dryness from radiation, tracheostomy out. Lungs: Clear to auscultation bilaterally. No wheezes, rales, or rhonchi. Breathing is nonlabored. Abdomen: Soft, nontender, nondistended. Extremities: No lower extremity edema. No calf tenderness. Psych: Alert and oriented. Procedures 05/05/16 Laryngeal mass biopsy 05/05/16 tracheostomy 05/06/16 gastrostomy tube placement A/P Problem List: (1) Laryngeal mass ICD Code: J38.7 Status: Acute (2) COPD (chronic obstructive pulmonary disease) ICD Code: J44.9 Status: Chronic (3) Tobacco abuse ICD Code: Z72.0 Status: Chronic (4) Nausea & vomiting ICD Code: R11.2 Status: Resolved (5) Hyponatremia ICD Code: E87.1 Status: Chronic (6) Low grade fever ICD Code: R50.9 Status: Acute (7) Leukocytosis ICD Code: D72.829 Status: Acute Assessment and Plan This is a 61-year-old male admitted for the ranges, cell carcinoma 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 S/P tracheostomy removal. Continue chemotherapy with cisplatin for 6 weeks, continue radiation therapy. Appreciate pulmonology recommendations. 2. COPD: Continue supplemental oxygen. Bronchodilators as needed. 3. Tobacco abuse: Counseled to quit smoking. 4. DVT prophylaxis: SCDs, JEREMY delaney. Lovenox. 5. Healthcare associated pneumonia: Status post treatment vancomycin, cefepime. 6. Insomnia -continue Restoril Discharge Planning Continue chemotherapy and radiotherapy. Discharge once cleared by oncology Problem Qualifiers (1) COPD (chronic obstructive pulmonary disease): Qualified Code: J42 - Chronic bronchitis, unspecified chronic bronchitis type (2) Leukocytosis: Qualified Code: D72.829 - Leukocytosis, unspecified type Maggie Bains MD Jun 27, 2016 09:10
[2016-06-27] MEDS: RESP: ALBUTEROL 2.5 MG/IPRATROPIUM 0.5 MG NEB (PRN) NEB (11:23)
--- NOTE | 2016-06-27 13:47 | HHI.PR ---
Subjective Remarks ALERT NO SOB trach removed Objective Vital Signs Date Time Temp Pulse Resp B/P Pulse Ox O2 Delivery O2 Flow Rate FiO2 06/27/16 12:00 97.8 83 18 103/67 93 06/27/16 11:27 95 06/27/16 08:07 97.5 79 20 127/73 95 06/27/16 05:00 20 06/27/16 04:00 97.1 91 17 121/72 96 06/27/16 00:00 97.7 87 18 110/77 95 06/26/16 22:00 20 06/26/16 20:00 96.6 87 18 106/71 95 06/26/16 16:00 97.8 81 16 119/76 94 I/O 06/26/16 06/26/16 06/26/16 06/27/16 06/27/16 06/27/16 07:00 15:00 23:00 07:00 15:00 23:00 Intake Total 720 ml 480 ml Balance 720 ml 480 ml Intake Oral 720 ml 480 ml # Voids 2 4 3 Result Diagram: 06/24/16 1052 06/24/16 1052 Procedures 05/05/16 Laryngeal mass biopsy 05/05/16 tracheostomy Objective Remarks GENERAL: SKIN: Warm and dry. HEAD: Atraumatic. Normocephalic. EYES: Pupils equal and round. No scleral icterus. No injection or drainage. ENT: No nasal bleeding or discharge. Mucous membranes pink and moist. NECK: Trachea midline. No JVD. TRACH IN PLACE CARDIOVASCULAR: Regular rate and rhythm. RESPIRATORY: No accessory muscle use. Clear to auscultation. Breath sounds equal bilaterally. GASTROINTESTINAL: Abdomen soft, non-tender, nondistended. Hepatic and splenic margins not palpable. MUSCULOSKELETAL: Extremities without clubbing, cyanosis, or edema. No obvious deformities. NEUROLOGICAL: Awake and alert. No obvious cranial nerve deficits. Motor grossly within normal limits. Five out of 5 muscle strength in the arms and legs. Normal speech. PSYCHIATRIC: Appropriate mood and affect; insight and judgment normal. Assessment and Plan Assessment and Plan LARYNGEAL CA doing well trach removed PLAN increase activity Kamran Andrew MD Jun 27, 2016 13:47
[2016-06-27] MEDS: REMOVE OLD NICODERM (NICOTINE) PATCH TD SCH (21:00)
[2016-06-27] MEDS: TEMAZEPAM 15 MG CAP PO PRN (21:33)
[2016-06-28] VITALS: BP 121/82; PULSE 87; RESP 18; TEMP 97.6; O2SAT 96
[2016-06-28 04:00] VITALS: BP 103/70; PULSE 73; RESP 18; TEMP 96.8; O2SAT 94
[2016-06-28] MEDS: oxyCODONE/ACETAMINOPHEN 10 MG/325 MG TAB PO PRN ×5 (05:40→21:38)
[2016-06-28] MEDS: ENOXAPARIN SODIUM 40 MG/0.4 ML SYRINGE SQ SCH (05:41)
[2016-06-28 08:00] VITALS: BP 98/66; PULSE 79; RESP 20; TEMP 97.4; O2SAT 94
[2016-06-28] MEDS: SODIUM CHLORIDE 0.9% FLUSH 5 ML FLUSH FLUSH SCH ×2 (09:00→21:00)
[2016-06-28] MEDS: guaiFENesin E.R. 600 MG TAB PO SCH ×2 (09:51→21:37)
[2016-06-28] MEDS: DOCUSATE SODIUM 50 MG/SENNA 8.6 MG TAB PO SCH (09:52)
[2016-06-28] MEDS: MORPHINE SULFATE 15 MG CONTROLLED RELEASE TAB PO SCH ×2 (09:52→21:38)
[2016-06-28] MEDS: DOCUSATE SODIUM 100 MG CAP PO SCH ×3 (09:52→17:27)
[2016-06-28] MEDS: PANTOPRAZOLE SOD 40 MG DELAYED RELEASE TAB PO SCH (09:53)
[2016-06-28] MEDS: NICOTINE 7 MG/24 HR PATCH TD SCH (09:53)
[2016-06-28] MEDS: SILVER SULFADIAZINE 1% CR 50 GM JAR TOPICAL SCH ×2 (09:55→21:39)
[2016-06-28] MEDS: HYDROCORTISONE 2.5% CREAM 30 GM TOPICAL SCH ×2 (09:56→21:00)
[2016-06-28] MEDS: MICONAZOLE NITRATE 2% CREAM 15 GM TOPICAL SCH ×2 (09:57→21:00)
[2016-06-28 12:00] VITALS: BP 117/71; PULSE 83; RESP 20; TEMP 98.2; O2SAT 94
--- NOTE | 2016-06-28 13:33 | HHI.PR ---
Subjective Remarks ALERT NO SOB trach removed Objective Vital Signs Date Time Temp Pulse Resp B/P Pulse Ox O2 Delivery O2 Flow Rate FiO2 06/28/16 12:00 98.2 83 20 117/71 94 06/28/16 08:00 97.4 79 20 98/66 94 06/28/16 06:54 20 06/28/16 04:00 96.8 73 18 103/70 94 06/28/16 00:00 97.6 87 18 121/82 96 06/27/16 22:45 19 06/27/16 20:00 97.6 96 17 129/95 96 06/27/16 16:00 97.2 84 18 113/74 94 I/O 06/27/16 06/27/16 06/27/16 06/28/16 06/28/16 06/28/16 07:00 15:00 23:00 07:00 15:00 23:00 Intake Total 960 ml 480 ml 480 ml Balance 960 ml 480 ml 480 ml Intake Oral 960 ml 480 ml 480 ml # Voids 1 2 # Bowel Movements 0 0 Result Diagram: 06/24/16 1052 06/24/16 1052 Procedures 05/05/16 Laryngeal mass biopsy 05/05/16 tracheostomy Objective Remarks GENERAL: SKIN: Warm and dry. HEAD: Atraumatic. Normocephalic. EYES: Pupils equal and round. No scleral icterus. No injection or drainage. ENT: No nasal bleeding or discharge. Mucous membranes pink and moist. NECK: Trachea midline. No JVD. TRACH IN PLACE CARDIOVASCULAR: Regular rate and rhythm. RESPIRATORY: No accessory muscle use. Clear to auscultation. Breath sounds equal bilaterally. GASTROINTESTINAL: Abdomen soft, non-tender, nondistended. Hepatic and splenic margins not palpable. MUSCULOSKELETAL: Extremities without clubbing, cyanosis, or edema. No obvious deformities. NEUROLOGICAL: Awake and alert. No obvious cranial nerve deficits. Motor grossly within normal limits. Five out of 5 muscle strength in the arms and legs. Normal speech. PSYCHIATRIC: Appropriate mood and affect; insight and judgment normal. Assessment and Plan Assessment and Plan LARYNGEAL CA doing well trach removed PLAN increase activity Kamran Andrew MD Jun 28, 2016 13:33
--- NOTE | 2016-06-28 14:23 | HHI.PR ---
Subjective Remarks Follow-up for shortness of breath Breathing at baseline, no fever or chills. No nausea or vomiting, good oral intake. Objective Vitals Vital Signs Date Time Temp Pulse Resp B/P Pulse Ox O2 Delivery O2 Flow Rate FiO2 06/28/16 12:00 98.2 83 20 117/71 94 06/28/16 08:00 97.4 79 20 98/66 94 06/28/16 06:54 20 06/28/16 04:00 96.8 73 18 103/70 94 06/28/16 00:00 97.6 87 18 121/82 96 06/27/16 22:45 19 06/27/16 20:00 97.6 96 17 129/95 96 06/27/16 16:00 97.2 84 18 113/74 94 I/O 06/27/16 06/27/16 06/27/16 06/28/16 06/28/16 06/28/16 07:00 15:00 23:00 07:00 15:00 23:00 Intake Total 960 ml 480 ml 480 ml Balance 960 ml 480 ml 480 ml Intake Oral 960 ml 480 ml 480 ml # Voids 1 2 2 # Bowel Movements 0 0 Result Diagram: 06/24/16 1052 06/24/16 1052 Objective Remarks General: No acute distress. Heart: Regular rate and rhythm. No murmur. Tracheal site with yellowish discharge and skin dryness from radiation, tracheostomy out. Lungs: Clear to auscultation bilaterally. No wheezes, rales, or rhonchi. Breathing is nonlabored. Abdomen: Soft, nontender, nondistended. Extremities: No lower extremity edema. No calf tenderness. Psych: Alert and oriented. Procedures 05/05/16 Laryngeal mass biopsy 05/05/16 tracheostomy 05/06/16 gastrostomy tube placement A/P Problem List: (1) Laryngeal mass ICD Code: J38.7 Status: Acute (2) COPD (chronic obstructive pulmonary disease) ICD Code: J44.9 Status: Chronic (3) Tobacco abuse ICD Code: Z72.0 Status: Chronic (4) Nausea & vomiting ICD Code: R11.2 Status: Resolved (5) Hyponatremia ICD Code: E87.1 Status: Chronic (6) Low grade fever ICD Code: R50.9 Status: Acute (7) Leukocytosis ICD Code: D72.829 Status: Acute Assessment and Plan This is a 61-year-old male admitted for the ranges, cell carcinoma 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 S/P tracheostomy removal. Continue chemotherapy with cisplatin for 6 weeks, continue radiation therapy. Appreciate pulmonology recommendations. 2. COPD: Continue supplemental oxygen. Bronchodilators as needed. 3. Tobacco abuse: Counseled to quit smoking. 4. DVT prophylaxis: SCDs, JEREMY delaney. Lovenox. 5. Healthcare associated pneumonia: Status post treatment vancomycin, cefepime. 6. Insomnia -continue Restoril Lovenox for DVT prophylaxis Discharge Planning Continue chemotherapy and radiotherapy. Discharge once cleared by oncology Problem Qualifiers (1) COPD (chronic obstructive pulmonary disease): Qualified Code: J42 - Chronic bronchitis, unspecified chronic bronchitis type (2) Leukocytosis: Qualified Code: D72.829 - Leukocytosis, unspecified type Maggie Bains MD Jun 28, 2016 14:23
[2016-06-28 16:00] VITALS: BP 119/78; PULSE 88; RESP 20; TEMP 97.8; O2SAT 95
[2016-06-28 20:37] VITALS: BP 116/69; PULSE 89; RESP 18; TEMP 97.6; O2SAT 93
[2016-06-28] MEDS: REMOVE OLD NICODERM (NICOTINE) PATCH TD SCH (21:00)
[2016-06-28] MEDS: TEMAZEPAM 15 MG CAP PO PRN (21:38)
[2016-06-29 00:32] VITALS: BP 98/73; PULSE 95; RESP 18; TEMP 96.5; O2SAT 96
[2016-06-29 04:00] VITALS: BP 106/69; PULSE 90; RESP 18; TEMP 97.2; O2SAT 96
[2016-06-29] MEDS: oxyCODONE/ACETAMINOPHEN 10 MG/325 MG TAB PO PRN ×5 (05:30→22:23)
[2016-06-29] MEDS: ENOXAPARIN SODIUM 40 MG/0.4 ML SYRINGE SQ SCH (05:31)
[2016-06-29 08:30] VITALS: BP 108/65; PULSE 87; RESP 18; TEMP 96.6; O2SAT 96
[2016-06-29] MEDS: MICONAZOLE NITRATE 2% CREAM 15 GM TOPICAL SCH ×2 (09:00→21:00)
[2016-06-29] MEDS: SODIUM CHLORIDE 0.9% FLUSH 5 ML FLUSH FLUSH SCH ×2 (09:00→21:00)
[2016-06-29] MEDS: DOCUSATE SODIUM 50 MG/SENNA 8.6 MG TAB PO SCH (09:24)
[2016-06-29] MEDS: DOCUSATE SODIUM 100 MG CAP PO SCH ×3 (09:24→17:41)
[2016-06-29] MEDS: NICOTINE 7 MG/24 HR PATCH TD SCH (09:24)
[2016-06-29] MEDS: MORPHINE SULFATE 15 MG CONTROLLED RELEASE TAB PO SCH ×2 (09:24→22:21)
[2016-06-29] MEDS: PANTOPRAZOLE SOD 40 MG DELAYED RELEASE TAB PO SCH (09:25)
[2016-06-29] MEDS: guaiFENesin E.R. 600 MG TAB PO SCH ×2 (09:25→22:20)
[2016-06-29] MEDS: SILVER SULFADIAZINE 1% CR 50 GM JAR TOPICAL SCH ×2 (09:27→22:26)
[2016-06-29] MEDS: HYDROCORTISONE 2.5% CREAM 30 GM TOPICAL SCH ×2 (09:27→22:26)
--- NOTE | 2016-06-29 10:17 | HHI.PR ---
Subjective Remarks Follow-up for cancer next No overnight events, no shortness of breath, afebrile. For chemotherapy on Thursday and radiotherapy tomorrow. Objective Vitals Vital Signs Date Time Temp Pulse Resp B/P Pulse Ox O2 Delivery O2 Flow Rate FiO2 06/29/16 08:30 96.6 87 18 108/65 96 06/29/16 06:30 20 06/29/16 04:00 97.2 90 18 106/69 96 06/29/16 00:32 96.5 95 18 98/73 96 06/28/16 23:07 19 06/28/16 20:37 97.6 89 18 116/69 93 06/28/16 16:00 97.8 88 20 119/78 95 06/28/16 12:00 98.2 83 20 117/71 94 I/O 06/28/16 06/28/16 06/28/16 06/29/16 06/29/16 06/29/16 07:00 15:00 23:00 07:00 15:00 23:00 Intake Total 480 ml 240 ml Balance 480 ml 240 ml Intake Oral 480 ml 240 ml # Voids 2 2 3 # Bowel Movements 0 1 Objective Remarks General: No acute distress. Heart: Regular rate and rhythm. No murmur. Tracheal site with yellowish discharge and skin dryness from radiation, tracheostomy out. Lungs: Clear to auscultation bilaterally. No wheezes, rales, or rhonchi. Breathing is nonlabored. Abdomen: Soft, nontender, nondistended. Extremities: No lower extremity edema. No calf tenderness. Psych: Alert and oriented. Procedures 05/05/16 Laryngeal mass biopsy 05/05/16 tracheostomy 05/06/16 gastrostomy tube placement A/P Problem List: (1) Laryngeal mass ICD Code: J38.7 Status: Acute (2) COPD (chronic obstructive pulmonary disease) ICD Code: J44.9 Status: Chronic (3) Tobacco abuse ICD Code: Z72.0 Status: Chronic (4) Nausea & vomiting ICD Code: R11.2 Status: Resolved (5) Hyponatremia ICD Code: E87.1 Status: Chronic (6) Low grade fever ICD Code: R50.9 Status: Acute (7) Leukocytosis ICD Code: D72.829 Status: Acute Assessment and Plan This is a 61-year-old male admitted for the ranges, cell carcinoma 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 S/P tracheostomy removal. Continue chemotherapy with cisplatin for 6 weeks, continue radiation therapy. Appreciate pulmonology recommendations. 2. COPD: Continue supplemental oxygen. Bronchodilators as needed. 3. Tobacco abuse: Counseled to quit smoking. 4. DVT prophylaxis: SCDs, JEREMY hose. Lovenox. 5. Healthcare associated pneumonia: Status post treatment vancomycin, cefepime. 6. Insomnia -continue Restoril Lovenox for DVT prophylaxis Discharge Planning Continue chemotherapy and radiotherapy. Discharge once cleared by oncology Problem Qualifiers (1) COPD (chronic obstructive pulmonary disease): Qualified Code: J42 - Chronic bronchitis, unspecified chronic bronchitis type (2) Leukocytosis: Qualified Code: D72.829 - Leukocytosis, unspecified type Maggie Bains MD Jun 29, 2016 10:17
[2016-06-29 12:00] VITALS: BP 120/78; PULSE 82; RESP 20; TEMP 96.6; O2SAT 96
--- NOTE | 2016-06-29 12:46 | HHI.PR ---
Subjective Remarks ALERT NO SOB trach removed Objective Vital Signs Date Time Temp Pulse Resp B/P Pulse Ox O2 Delivery O2 Flow Rate FiO2 06/29/16 12:00 96.6 82 20 120/78 96 06/29/16 08:30 96.6 87 18 108/65 96 06/29/16 06:30 20 06/29/16 04:00 97.2 90 18 106/69 96 06/29/16 00:32 96.5 95 18 98/73 96 06/28/16 23:07 19 06/28/16 20:37 97.6 89 18 116/69 93 06/28/16 16:00 97.8 88 20 119/78 95 I/O 06/28/16 06/28/16 06/28/16 06/29/16 06/29/16 06/29/16 07:00 15:00 23:00 07:00 15:00 23:00 Intake Total 480 ml 240 ml Balance 480 ml 240 ml Intake Oral 480 ml 240 ml # Voids 2 2 3 # Bowel Movements 0 1 Procedures 05/05/16 Laryngeal mass biopsy 05/05/16 tracheostomy Objective Remarks GENERAL: SKIN: Warm and dry. HEAD: Atraumatic. Normocephalic. EYES: Pupils equal and round. No scleral icterus. No injection or drainage. ENT: No nasal bleeding or discharge. Mucous membranes pink and moist. NECK: Trachea midline. No JVD. TRACH IN PLACE CARDIOVASCULAR: Regular rate and rhythm. RESPIRATORY: No accessory muscle use. Clear to auscultation. Breath sounds equal bilaterally. GASTROINTESTINAL: Abdomen soft, non-tender, nondistended. Hepatic and splenic margins not palpable. MUSCULOSKELETAL: Extremities without clubbing, cyanosis, or edema. No obvious deformities. NEUROLOGICAL: Awake and alert. No obvious cranial nerve deficits. Motor grossly within normal limits. Five out of 5 muscle strength in the arms and legs. Normal speech. PSYCHIATRIC: Appropriate mood and affect; insight and judgment normal. Assessment and Plan Assessment and Plan LARYNGEAL CA doing well trach removed PLAN increase activity Kamran Andrew MD Jun 29, 2016 12:46
[2016-06-29 16:00] VITALS: BP 110/80; PULSE 80; RESP 20; TEMP 96.6; O2SAT 94
[2016-06-29 20:00] VITALS: BP 119/79; PULSE 88; RESP 17; TEMP 97.2; O2SAT 95
[2016-06-29] MEDS: TEMAZEPAM 15 MG CAP PO PRN (22:24)
[2016-06-29] MEDS: REMOVE OLD NICODERM (NICOTINE) PATCH TD SCH (22:25)
[2016-06-30] VITALS: BP 102/76; PULSE 96; RESP 18; TEMP 97.2; O2SAT 96
[2016-06-30 04:00] VITALS: BP 100/72; PULSE 97; RESP 18; TEMP 97.1; O2SAT 96
[2016-06-30] MEDS: ENOXAPARIN SODIUM 40 MG/0.4 ML SYRINGE SQ SCH (05:41)
[2016-06-30] MEDS: oxyCODONE/ACETAMINOPHEN 10 MG/325 MG TAB PO PRN ×4 (05:44→19:28)
[2016-06-30 08:00] VITALS: BP 117/77; PULSE 88; RESP 20; TEMP 97.9; O2SAT 95
[2016-06-30] MEDS: HYDROCORTISONE 2.5% CREAM 30 GM TOPICAL SCH ×2 (09:00→21:19)
[2016-06-30] MEDS: MICONAZOLE NITRATE 2% CREAM 15 GM TOPICAL SCH ×2 (09:00→21:00)
[2016-06-30] MEDS: DOCUSATE SODIUM 50 MG/SENNA 8.6 MG TAB PO SCH (09:31)
[2016-06-30] MEDS: DOCUSATE SODIUM 100 MG CAP PO SCH ×3 (09:31→18:22)
[2016-06-30] MEDS: MORPHINE SULFATE 15 MG CONTROLLED RELEASE TAB PO SCH ×2 (09:31→21:18)
[2016-06-30] MEDS: NICOTINE 7 MG/24 HR PATCH TD SCH (09:31)
[2016-06-30] MEDS: PANTOPRAZOLE SOD 40 MG DELAYED RELEASE TAB PO SCH (09:31)
[2016-06-30] MEDS: guaiFENesin E.R. 600 MG TAB PO SCH ×2 (09:31→21:18)
[2016-06-30] MEDS: SODIUM CHLORIDE 0.9% FLUSH 5 ML FLUSH FLUSH SCH ×2 (09:34→21:00)
[2016-06-30] MEDS: SILVER SULFADIAZINE 1% CR 50 GM JAR TOPICAL SCH ×2 (09:34→21:19)
[2016-06-30 11:57] LABS: BASOPHIL % 0.8 % (0.0-2.0); EOSINOPHIL % 2.4 % (0.0-4.0); HEMATOCRIT 34.5 % (39.0-51.0); LYMPH % 15.9 % (9.0-44.0); LYMPHOCYTE # 0.3 TH/MM3 (1.0-4.8); MEAN CELL VOLUME 92.1 FL (80.0-100.0); MEAN CORPUSCULAR HEMOGLOBIN 30.7 PG (27.0-34.0); MEAN CORPUSCULAR HGB CONC 33.4 % (32.0-36.0); MONO % 25.2 % (0.0-8.0); NEUT % 55.7 % (16.0-70.0); PLATELET COUNT 164 TH/MM3 (150-450); RED BLOOD COUNT 3.74 MIL/MM3 (4.50-5.90); RED CELL DISTRIBUTION WIDTH 15.4 % (11.6-17.2); WHITE BLOOD COUNT 1.9 TH/MM3 (4.0-11.0)
[2016-06-30 12:00] VITALS: BP 121/73; PULSE 87; RESP 20; TEMP 98.1; O2SAT 96
[2016-06-30 12:00] LABS: HEMO FLAGS AUTO DIFF
[2016-06-30 12:24] LABS: BANDS 5 % (0-6); BASOPHILS 2 % (0-2); EOSINOPHILS 1 % (0-4); NEUTROPHIL # MANUAL DIFF 1.1 TH/MM3 (1.8-7.7); POLYS (SEG NEUTROPHILS) 53 % (16-70); WBC DIFF SAMPLE 100
[2016-06-30 12:25] LABS: PLATELET ESTIMATE SMEAR NORMAL (NORMAL); PLATELET MORPHOLOGY NORMAL (NORMAL); SCAN/DIFF FINAL DIFF MANUAL
--- NOTE | 2016-06-30 15:32 | HHI.PR ---
Subjective Remarks f/u SOB no SOB,no chest pain, s/p radiotherapy today, no n/v, sleeping well Objective Vitals Vital Signs Date Time Temp Pulse Resp B/P Pulse Ox O2 Delivery O2 Flow Rate FiO2 06/30/16 12:00 98.1 87 20 121/73 96 06/30/16 08:00 97.9 88 20 117/77 95 06/30/16 04:00 97.1 97 18 100/72 96 06/30/16 00:00 97.2 96 18 102/76 96 06/29/16 20:00 97.2 88 17 119/79 95 06/29/16 16:00 96.6 80 20 110/80 94 I/O 06/29/16 06/29/16 06/29/16 06/30/16 06/30/16 06/30/16 07:00 15:00 23:00 07:00 15:00 23:00 Intake Total 1200 ml 240 ml 240 ml 480 ml Balance 1200 ml 240 ml 240 ml 480 ml Intake Oral 1200 ml 240 ml 240 ml 480 ml # Voids 3 1 # Bowel Movements 0 Result Diagram: 06/30/16 1130 Objective Remarks General: No acute distress. Heart: Regular rate and rhythm. No murmur. Tracheal site with yellowish discharge and skin dryness from radiation,silver sulfadiazine on wound Lungs: Clear to auscultation bilaterally. No wheezes, rales, or rhonchi. Breathing is nonlabored. Abdomen: Soft, nontender, nondistended. Extremities: No lower extremity edema. No calf tenderness. Psych: Alert and oriented, no focal deficits Procedures 05/05/16 Laryngeal mass biopsy 05/05/16 tracheostomy 05/06/16 gastrostomy tube placement A/P Problem List: (1) Laryngeal mass ICD Code: J38.7 Status: Acute (2) COPD (chronic obstructive pulmonary disease) ICD Code: J44.9 Status: Chronic (3) Tobacco abuse ICD Code: Z72.0 Status: Chronic (4) Nausea & vomiting ICD Code: R11.2 Status: Resolved (5) Hyponatremia ICD Code: E87.1 Status: Chronic (6) Low grade fever ICD Code: R50.9 Status: Acute (7) Leukocytosis ICD Code: D72.829 Status: Acute Assessment and Plan This is a 61-year-old male admitted for the ranges, cell carcinoma 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 S/P tracheostomy removal. Continue chemotherapy with cisplatin for 6 weeks, continue radiation therapy, had a dose today. Appreciate pulmonology recommendations. 2. COPD: Continue supplemental oxygen. Bronchodilators as needed. 3. Tobacco abuse: Counseled to quit smoking. 4. DVT prophylaxis: SCDs, JEREMY hose. Lovenox. 5. Healthcare associated pneumonia: Status post treatment vancomycin, cefepime. 6. Insomnia -continue Restoril Lovenox for DVT prophylaxis Discharge Planning Continue chemotherapy and radiotherapy. Discharge once cleared by oncology Problem Qualifiers (1) COPD (chronic obstructive pulmonary disease): Qualified Code: J42 - Chronic bronchitis, unspecified chronic bronchitis type (2) Leukocytosis: Qualified Code: D72.829 - Leukocytosis, unspecified type Maggie Bains MD Jun 30, 2016 15:32
[2016-06-30 16:00] VITALS: BP 137/72; PULSE 79; RESP 20; TEMP 96.6; O2SAT 97
--- NOTE | 2016-06-30 17:15 | HHI.PR ---
Subjective Remarks ALERT NO SOB trach removed , healing nicely Objective Vital Signs Date Time Temp Pulse Resp B/P Pulse Ox O2 Delivery O2 Flow Rate FiO2 06/30/16 16:00 96.6 79 20 137/72 97 06/30/16 12:00 98.1 87 20 121/73 96 06/30/16 08:00 97.9 88 20 117/77 95 06/30/16 04:00 97.1 97 18 100/72 96 06/30/16 00:00 97.2 96 18 102/76 96 06/29/16 20:00 97.2 88 17 119/79 95 I/O 06/29/16 06/29/16 06/29/16 06/30/16 06/30/16 06/30/16 07:00 15:00 23:00 07:00 15:00 23:00 Intake Total 1200 ml 240 ml 240 ml 480 ml Balance 1200 ml 240 ml 240 ml 480 ml Intake Oral 1200 ml 240 ml 240 ml 480 ml # Voids 3 1 # Bowel Movements 0 Result Diagram: 06/30/16 1130 Procedures 05/05/16 Laryngeal mass biopsy 05/05/16 tracheostomy Objective Remarks GENERAL: SKIN: Warm and dry. HEAD: Atraumatic. Normocephalic. EYES: Pupils equal and round. No scleral icterus. No injection or drainage. ENT: No nasal bleeding or discharge. Mucous membranes pink and moist. NECK: Trachea midline. No JVD. TRACH IN PLACE CARDIOVASCULAR: Regular rate and rhythm. RESPIRATORY: No accessory muscle use. Clear to auscultation. Breath sounds equal bilaterally. GASTROINTESTINAL: Abdomen soft, non-tender, nondistended. Hepatic and splenic margins not palpable. MUSCULOSKELETAL: Extremities without clubbing, cyanosis, or edema. No obvious deformities. NEUROLOGICAL: Awake and alert. No obvious cranial nerve deficits. Motor grossly within normal limits. Five out of 5 muscle strength in the arms and legs. Normal speech. PSYCHIATRIC: Appropriate mood and affect; insight and judgment normal. Assessment and Plan Assessment and Plan LARYNGEAL CA doing well trach removed PLAN increase activity Kamran Andrew MD Jun 30, 2016 17:15
[2016-06-30 20:00] VITALS: BP 110/77; PULSE 89; RESP 18; TEMP 97.3; O2SAT 95
[2016-06-30] MEDS: REMOVE OLD NICODERM (NICOTINE) PATCH TD SCH (21:20)
[2016-06-30] MEDS: TEMAZEPAM 15 MG CAP PO PRN (21:24)
[2016-07-01] VITALS: BP 118/75; PULSE 78; RESP 17; TEMP 97.8; O2SAT 94
[2016-07-01 05:38] LABS: BASOPHIL % 0.8 % (0.0-2.0); EOSINOPHIL # 0.1 TH/MM3 (0-0.4); EOSINOPHIL % 2.9 % (0.0-4.0); LYMPH % 17.6 % (9.0-44.0); LYMPHOCYTE # 0.3 TH/MM3 (1.0-4.8); MEAN CELL VOLUME 90.3 FL (80.0-100.0); MEAN CORPUSCULAR HEMOGLOBIN 31.9 PG (27.0-34.0); MEAN CORPUSCULAR HGB CONC 35.4 % (32.0-36.0); MONO % 28.2 % (0.0-8.0); NEUT % 50.5 % (16.0-70.0); PLATELET COUNT 173 TH/MM3 (150-450); RED BLOOD COUNT 3.54 MIL/MM3 (4.50-5.90); WHITE BLOOD COUNT 1.9 TH/MM3 (4.0-11.0)
[2016-07-01 05:48] LABS: HEMO FLAGS AUTO DIFF
[2016-07-01 05:49] LABS: ALT (GPT) 14 U/L (12-78); ANION GAP 7 MEQ/L (5-15); AST (GOT) 9 U/L (15-37); BICARBONATE 27.7 MEQ/L (21.0-32.0); BLOOD UREA NITROGEN 17 MG/DL (7-18); CHLORIDE 100 MEQ/L (98-107); GLOMERULAR FILTRATION RATE 159 ML/MIN (>89); POTASSIUM 4.2 MEQ/L (3.5-5.1); SODIUM (NA) 135 MEQ/L (136-145)
[2016-07-01 05:51] LABS: ALKALINE PHOSPHATASE 75 U/L (45-117); TOTAL BILIRUBIN ADULT 0.4 MG/DL (0.2-1.0)
[2016-07-01 05:55] VITALS: BP 118/73; PULSE 96; RESP 16; TEMP 98.1; O2SAT 97
[2016-07-01] MEDS: oxyCODONE/ACETAMINOPHEN 10 MG/325 MG TAB PO PRN ×4 (06:24→21:50)
[2016-07-01] MEDS: ENOXAPARIN SODIUM 40 MG/0.4 ML SYRINGE SQ SCH (06:24)
--- NOTE | 2016-07-01 07:55 | PD.ONC.PN ---
Subjective Subjective Remarks Soreness of the throat and peeling of the skin on the anterior surface of the neck. Tells me his throat scratches when he swallows. He has about 7 fractions of RT remaining. Objective Data Date Time Temp Pulse Resp B/P Pulse Ox O2 Delivery O2 Flow Rate FiO2 07/01/16 05:55 98.1 96 16 118/73 97 07/01/16 00:00 97.8 78 17 118/75 94 06/30/16 20:00 97.3 89 18 110/77 95 06/30/16 16:00 96.6 79 20 137/72 97 06/30/16 12:00 98.1 87 20 121/73 96 06/30/16 08:00 97.9 88 20 117/77 95 Result Diagram: 07/01/16 0422 07/01/16 0422 Laboratory Results Laboratory Tests Test 06/30/16 07/01/16 11:30 04:22 White Blood Count 1.9 TH/MM3 1.9 TH/MM3 Red Blood Count 3.74 MIL/MM3 3.54 MIL/MM3 Hemoglobin 11.5 GM/DL 11.3 GM/DL Hematocrit 34.5 % 32.0 % Mean Corpuscular Volume 92.1 FL 90.3 FL Mean Corpuscular Hemoglobin 30.7 PG 31.9 PG Mean Corpuscular Hemoglobin 33.4 % 35.4 % Concent Red Cell Distribution Width 15.4 % 15.0 % Platelet Count 164 TH/MM3 173 TH/MM3 Mean Platelet Volume 6.5 FL 6.7 FL Neutrophils (%) (Auto) 55.7 % 50.5 % Lymphocytes (%) (Auto) 15.9 % 17.6 % Monocytes (%) (Auto) 25.2 % 28.2 % Eosinophils (%) (Auto) 2.4 % 2.9 % Basophils (%) (Auto) 0.8 % 0.8 % Neutrophils # (Auto) 1.0 TH/MM3 1.0 TH/MM3 Lymphocytes # (Auto) 0.3 TH/MM3 0.3 TH/MM3 Monocytes # (Auto) 0.5 TH/MM3 0.5 TH/MM3 Eosinophils # (Auto) 0.0 TH/MM3 0.1 TH/MM3 Basophils # (Auto) 0.0 TH/MM3 0.0 TH/MM3 CBC Comment AUTO DIFF AUTO DIFF Differential Total Cells 100 Counted Neutrophils % (Manual) 53 % Band Neutrophils % 5 % Lymphocytes % 18 % Monocytes % 21 % Eosinophils % 1 % Basophils % 2 % Neutrophils # (Manual) 1.1 TH/MM3 Differential Comment FINAL DIFF MANUAL Platelet Estimate NORMAL Platelet Morphology Comment NORMAL Red Cell Morphology Comment NORMAL Sodium Level 135 MEQ/L Potassium Level 4.2 MEQ/L Chloride Level 100 MEQ/L Carbon Dioxide Level 27.7 MEQ/L Anion Gap 7 MEQ/L Blood Urea Nitrogen 17 MG/DL Creatinine 0.53 MG/DL Estimat Glomerular Filtration 159 ML/MIN Rate Random Glucose 85 MG/DL Calcium Level 8.9 MG/DL Total Bilirubin 0.4 MG/DL Aspartate Amino Transf 9 U/L (AST/SGOT) Alanine Aminotransferase 14 U/L (ALT/SGPT) Alkaline Phosphatase 75 U/L Total Protein 6.5 GM/DL Albumin 2.8 GM/DL Administered Medications Medications (Trade) Dose Ordered Sig/Darryl Route PRN Reason Start Time Stop Time Status Last Admin Dose Admin IV Flush (NS Flush) 2 ml UNSCH PRN FLUSH FLUSH AFTER USING IV ACCESS 05/01/16 15:15 05/21/16 13:19 IV Flush (NS Flush) 2 ml BID FLUSH 05/01/16 21:00 06/29/16 09:00 Ondansetron HCl (Zofran Inj) 4 mg Q6H PRN IVP NAUSEA OR VOMITING 05/01/16 15:15 05/29/16 13:46 Metoclopramide HCl (Reglan Inj) 5 mg Q8H PRN IV PUSH NAUSEA 05/07/16 22:15 06/12/16 17:41 Docusate Sodium (Colace) 100 mg TID PO 05/08/16 09:00 06/30/16 18:22 Nicotine (Habitrol 7 Mg Patch.24 Hr) 1 patch DAILY TD 05/09/16 16:00 06/30/16 09:31 Miscellaneous Information 1 HS TD 05/09/16 21:00 06/30/16 21:20 Guaifenesin/ Dextromethorphan (Robitussin Dm 200-20 Mg/10 ml Liq) 10 ml Q6H PRN PO COUGH 05/11/16 17:00 06/26/16 22:19 Guaifenesin (Mucinex Er) 600 mg BID PO 05/11/16 21:30 06/30/16 21:18 Benzonatate (Tessalon) 200 mg TID PRN PO cough interfering w/rest 05/11/16 21:30 05/14/16 20:39 Acetaminophen (Tylenol) 650 mg Q6HR PRN PO fever > 100.4 05/11/16 21:30 05/17/16 13:06 Pantoprazole Sodium (Protonix) 40 mg DAILY PO 05/12/16 09:00 06/30/16 09:31 Enoxaparin Sodium (Lovenox Inj) 40 mg Q24H SQ 05/12/16 06:00 07/01/16 06:24 Acetaminophen (Tylenol) 650 mg Q6H PRN PO PAIN SCALE 1 TO 2 05/13/16 11:15 06/13/16 06:17 Morphine Sulfate (Morphine Inj) 4 mg Q3H PRN IV BREAKTHROUGH PAIN 05/13/16 11:15 06/17/16 20:55 Morphine Sulfate (Oramorph Sr) 15 mg Q12HR PO 05/25/16 21:00 06/30/16 21:18 Oxycodone/ Acetaminophen (Percocet 5-325 Mg) 1 tab Q4H PRN PO PAIN SCALE 3 TO 5 05/27/16 13:15 06/15/16 04:59 Oxycodone/ Acetaminophen (Percocet 10-325 Mg) 1 tab Q4H PRN PO PAIN SCALE 6 TO 10 05/27/16 13:15 07/01/16 06:24 Hydrocortisone (Eldecort 2.5% Cream) 1 applic BID TOPICAL 06/01/16 12:15 06/30/16 21:19 Miconazole Nitrate (Micatin 2% Cream) 1 applic Q12HR TOPICAL 06/02/16 21:00 06/28/16 09:57 Senna/Docusate Sodium 1 tab 1 tab DAILY PO 06/05/16 12:00 06/30/16 09:31 Cisplatin/Sodium Chloride (Platinol Inj/NS Inj) 223.2 ml @ 225 mls/hr Q7D IV 06/24/16 11:00 07/01/16 12:00 06/24/16 16:19 Granisetron HCl (Kytril Inj) 1 mg Q7D IV 06/24/16 10:00 07/01/16 10:01 06/24/16 15:21 Furosemide 40 mg 40 mg Q7D IV PUSH 06/24/16 10:00 07/01/16 10:01 06/24/16 15:22 Dexamethasone Sodium Phosphate/ Sodium Chloride (Decadron Inj/NS Inj) 52.5 ml @ 210 mls/hr Q7D IV 06/24/16 10:00 07/01/16 10:14 06/24/16 15:12 Mannitol (Mannitol Inj) 12.5 gm Q7D IV 06/24/16 10:30 07/01/16 10:31 06/24/16 15:41 Silver Sulfadiazine (Silvadene 1% Cream (50 Gm)) 1 applic BID TOPICAL 06/24/16 21:00 06/30/16 21:19 Temazepam (Restoril) 30 mg HS PRN PO insomnia 06/26/16 16:15 06/30/16 21:24 Objective Remarks GENERAL: Middle-aged male, sitting up in bed, tracheostomy has been discontinued in the anterior. He sitting up in bed, speaks to me in a hoarse voice but in full sentences. SKIN: Warm and dry. HEAD: Normocephalic. EYES: No scleral icterus. No injection or drainage. NECK: Skin peeling due to radiation. No masses, the tracheostomy has near completely closed. LYMPHATIC: No adenopathy. CARDIOVASCULAR: Regular rate and rhythm without murmurs. RESPIRATORY: Prolonged expiratory phase, scattered rhonchi. GASTROINTESTINAL: Abdomen soft, non-tender, nondistended. Feeding tube now removed. EXTREMITIES: No cyanosis, or edema. MUSCULOSKELETAL: Adequate muscle tone. NEUROLOGICAL: No obvious focal deficit. Awake, alert, and oriented x3. PSYCHIATRIC: Appropriate mood and affect; insight and judgment normal. 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 05/20: cisplatin 40 mg/m2 05/27: cisplatin 40 mg/m2 06/03: cisplatin 40 mg/m2 05/21: started XRT--continue Thursday-Thursday for 35 treatments 06/17: cisplatin 40mg/m2 Plan 1. Squamous cell carcinoma: received 28/35 XRT treatments thus far. Will hold Cisplatin today due to neutropenia. 2. Nutrition: On full oral diet, weight is holding stable. 3. DVT prophylaxis: Lovenox for prophylaxis. Disposition: Hold chemo, RT may need to be held due to skin desquamation as well, await Rad Onc input. He may be discharged at any time if safe discharge disposition is established. Urban Lofton MD Jul 01, 2016 07:54
[2016-07-01 08:00] VITALS: BP 117/85; PULSE 87; RESP 16; TEMP 96.8; O2SAT 98
[2016-07-01] MEDS: NICOTINE 7 MG/24 HR PATCH TD SCH (08:00)
[2016-07-01] MEDS: guaiFENesin E.R. 600 MG TAB PO SCH ×2 (08:01→21:49)
[2016-07-01] MEDS: DOCUSATE SODIUM 50 MG/SENNA 8.6 MG TAB PO SCH (08:01)
[2016-07-01] MEDS: DOCUSATE SODIUM 100 MG CAP PO SCH ×3 (08:01→17:26)
[2016-07-01] MEDS: PANTOPRAZOLE SOD 40 MG DELAYED RELEASE TAB PO SCH (08:01)
[2016-07-01] MEDS: MORPHINE SULFATE 15 MG CONTROLLED RELEASE TAB PO SCH ×2 (08:01→21:49)
[2016-07-01] MEDS: SILVER SULFADIAZINE 1% CR 50 GM JAR TOPICAL SCH ×2 (08:05→21:51)
[2016-07-01] MEDS: MICONAZOLE NITRATE 2% CREAM 15 GM TOPICAL SCH ×2 (08:06→21:00)
[2016-07-01] MEDS: SODIUM CHLORIDE 0.9% FLUSH 5 ML FLUSH FLUSH SCH ×2 (08:06→21:00)
[2016-07-01] MEDS: HYDROCORTISONE 2.5% CREAM 30 GM TOPICAL SCH ×2 (08:06→21:55)
--- NOTE | 2016-07-01 08:14 | HHI.PR ---
Subjective Remarks ALERT NO SOB trach removed , healing nicely Objective Vital Signs Date Time Temp Pulse Resp B/P Pulse Ox O2 Delivery O2 Flow Rate FiO2 07/01/16 05:55 98.1 96 16 118/73 97 07/01/16 00:00 97.8 78 17 118/75 94 06/30/16 20:00 97.3 89 18 110/77 95 06/30/16 16:00 96.6 79 20 137/72 97 06/30/16 12:00 98.1 87 20 121/73 96 I/O 06/30/16 06/30/16 06/30/16 07/01/16 07/01/16 07/01/16 07:00 15:00 23:00 07:00 15:00 23:00 Intake Total 240 ml 480 ml 0 ml Balance 240 ml 480 ml 0 ml Intake Oral 240 ml 480 ml IV Total 0 ml # Voids 1 2 # Bowel Movements 1 Result Diagram: 07/01/16 0422 07/01/16 0422 Procedures 05/05/16 Laryngeal mass biopsy 05/05/16 tracheostomy Objective Remarks GENERAL: SKIN: Warm and dry. HEAD: Atraumatic. Normocephalic. EYES: Pupils equal and round. No scleral icterus. No injection or drainage. ENT: No nasal bleeding or discharge. Mucous membranes pink and moist. NECK: Trachea midline. No JVD. TRACH IN PLACE CARDIOVASCULAR: Regular rate and rhythm. RESPIRATORY: No accessory muscle use. Clear to auscultation. Breath sounds equal bilaterally. GASTROINTESTINAL: Abdomen soft, non-tender, nondistended. Hepatic and splenic margins not palpable. MUSCULOSKELETAL: Extremities without clubbing, cyanosis, or edema. No obvious deformities. NEUROLOGICAL: Awake and alert. No obvious cranial nerve deficits. Motor grossly within normal limits. Five out of 5 muscle strength in the arms and legs. Normal speech. PSYCHIATRIC: Appropriate mood and affect; insight and judgment normal. Assessment and Plan Assessment and Plan LARYNGEAL CA doing well trach removed PLAN increase activity Kamran Andrew MD Jul 01, 2016 08:13
[2016-07-01 09:06] LABS: BANDS 3 % (0-6); EOSINOPHILS 2 % (0-4); POLYS (SEG NEUTROPHILS) 50 % (16-70); WBC DIFF SAMPLE 100
[2016-07-01 09:07] LABS: PLATELET ESTIMATE SMEAR NORMAL (NORMAL); PLATELET MORPHOLOGY NORMAL (NORMAL); SCAN/DIFF FINAL DIFF MANUAL
[2016-07-01] MEDS ORDERED: POTASSIUM CHLORIDE IV ONE ×2 (09:30)
[2016-07-01] MEDS ORDERED: SODIUM CHLORID 0.9% IV ONE (09:30)
[2016-07-01] MEDS ORDERED: MAGNESIUM SULFATE IV ONE (09:30)
[2016-07-01] MEDS ORDERED: NACL 0.45% IV SCH (09:30)
[2016-07-01] MEDS ORDERED: POTASSIUM CHLORIDE IV SCH (09:30)
[2016-07-01] MEDS ORDERED: [UNRECOGNIZED DRUG - OTHER] IV ONE (09:30)
[2016-07-01] MEDS ORDERED: DEXT 5% IV SCH (09:30)
[2016-07-01] MEDS: FUROSEMIDE 40 MG/4 ML VIAL IV PUSH SCH (10:00)
[2016-07-01] MEDS: GRANISETRON HCL 1 MG/ML VIAL IV SCH (10:00)
[2016-07-01] MEDS: DEXAMETHASONE INJ 10 MG in SODIUM CHLORIDE 0.9% INJ 50 ML IV SCH (10:00)
[2016-07-01] MEDS: MANNITOL 12.5 GM/50 ML VIAL IV SCH (10:30)
[2016-07-01] MEDS: SODIUM CHLORIDE 0.9% IV SCH (11:00)
[2016-07-01] MEDS: CISPLATIN IV SCH (11:00)
[2016-07-01 12:41] VITALS: BP 136/87; PULSE 82; RESP 16; TEMP 96.7; O2SAT 94
[2016-07-01 16:00] VITALS: BP 130/82; PULSE 88; RESP 16; TEMP 97.2; O2SAT 95
--- NOTE | 2016-07-01 16:57 | HHI.PR ---
Subjective Remarks Follow-up for cancer status post radiotherapy today, no chest pain, no shortness of breath. No nausea or vomiting. Pain is controlled with Percocet. Objective Vitals Vital Signs Date Time Temp Pulse Resp B/P Pulse Ox O2 Delivery O2 Flow Rate FiO2 07/01/16 12:41 96.7 82 16 136/87 94 07/01/16 08:00 96.8 87 16 117/85 98 07/01/16 05:55 98.1 96 16 118/73 97 07/01/16 00:00 97.8 78 17 118/75 94 06/30/16 20:00 97.3 89 18 110/77 95 I/O 06/30/16 06/30/16 06/30/16 07/01/16 07/01/16 07/01/16 07:00 15:00 23:00 07:00 15:00 23:00 Intake Total 240 ml 480 ml 0 ml Balance 240 ml 480 ml 0 ml Intake Oral 240 ml 480 ml IV Total 0 ml # Voids 1 2 # Bowel Movements 1 Result Diagram: 07/01/1642107/01/16421 Objective Remarks General: No acute distress. Heart: Regular rate and rhythm. No murmur. Tracheal site with yellowish discharge and skin dryness from radiation,silver sulfadiazine on wound Lungs: Clear to auscultation bilaterally. No wheezes, rales, or rhonchi. Breathing is nonlabored. Abdomen: Soft, nontender, nondistended. Extremities: No lower extremity edema. No calf tenderness. Psych: Alert and oriented, no focal deficits Procedures 05/05/16 Laryngeal mass biopsy 05/05/16 tracheostomy 05/06/16 gastrostomy tube placement A/P Problem List: (1) Laryngeal mass ICD Code: J38.7 Status: Acute (2) COPD (chronic obstructive pulmonary disease) ICD Code: J44.9 Status: Chronic (3) Tobacco abuse ICD Code: Z72.0 Status: Chronic (4) Nausea & vomiting ICD Code: R11.2 Status: Resolved (5) Hyponatremia ICD Code: E87.1 Status: Chronic (6) Low grade fever ICD Code: R50.9 Status: Acute (7) Leukocytosis ICD Code: D72.829 Status: Acute Assessment and Plan This is a 61-year-old male admitted for the ranges, cell carcinoma 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 S/P tracheostomy removal. Continue chemotherapy with cisplatin for 6 weeks, continue radiation therapy , had a dose today. Finish cisplatin for 1 more cycle. No dose today because of leukopenia. Appreciate pulmonology recommendations. Check CBC tomorrow. 2. COPD: Continue supplemental oxygen. Bronchodilators as needed. 3. Tobacco abuse: Counseled to quit smoking. 4. DVT prophylaxis: SCDs, JEREMY delaney. Lovenox. 5. Healthcare associated pneumonia: Status post treatment vancomycin, cefepime. 6. Insomnia -continue Restoril Lovenox for DVT prophylaxis Discharge Planning [place] home once cleared by oncology for leukopenia, discussed with CM Problem Qualifiers (1) COPD (chronic obstructive pulmonary disease): Qualified Code: J42 - Chronic bronchitis, unspecified chronic bronchitis type (2) Leukocytosis: Qualified Code: D72.829 - Leukocytosis, unspecified type Maggie Bains MD Jul 01, 2016 16:57
--- NOTE | 2016-07-01 16:57 | HHI.DS ---
Discharge Summary Admission Date May 01, 2016 at 15:00 Admitting Diagnosis laryngeal mass with airway compromise (1) Laryngeal mass ICD Code: J38.7 (2) COPD (chronic obstructive pulmonary disease) ICD Code: J44.9 (3) Tobacco abuse ICD Code: Z72.0 (4) Nausea & vomiting ICD Code: R11.2 (5) Hyponatremia ICD Code: E87.1 (6) Low grade fever ICD Code: R50.9 (7) Leukocytosis ICD Code: D72.829 Procedures 05/05/16 Laryngeal mass biopsy 05/05/16 tracheostomy 05/06/16 gastrostomy tube placement Brief History - From Admission The patient is a 61-year-old male who presented to the emergency department yesterday with complaint of sore throat. He has been having some pain in his neck and throat since January. He was seen in the emergency department at the end of January and diagnosed with pharyngitis. He was treated with amoxicillin at that time and instructed to follow-up with ENT. It was about the end of January that he developed hoarseness, which has persisted. The patient states that he has continued to have pain on the side of his neck that eventually radiated up to his ear. Yesterday the pain had worsened to the point where it was intolerable and he went to the emergency department. He denies shortness of breath or chest pain. Denies fever, chills, night sweats. Throat pain is improved today. CBC/BMP: 07/01/16 0422 07/01/16 0422 Significant Findings Laboratory Tests Test 06/30/16 07/01/16 11:30 04:22 White Blood Count 1.9 TH/MM3 1.9 TH/MM3 (4.0-11.0) (4.0-11.0) Red Blood Count 3.74 MIL/MM3 3.54 MIL/MM3 (4.50-5.90) (4.50-5.90) Hemoglobin 11.5 GM/DL 11.3 GM/DL (13.0-17.0) (13.0-17.0) Hematocrit 34.5 % 32.0 % (39.0-51.0) (39.0-51.0) Mean Platelet Volume 6.5 FL 6.7 FL (7.0-11.0) (7.0-11.0) Monocytes (%) (Auto) 25.2 % 28.2 % (0.0-8.0) (0.0-8.0) Neutrophils # (Auto) 1.0 TH/MM3 1.0 TH/MM3 (1.8-7.7) (1.8-7.7) Lymphocytes # (Auto) 0.3 TH/MM3 0.3 TH/MM3 (1.0-4.8) (1.0-4.8) Monocytes % 21 % (0-8) 21 % (0-8) Neutrophils # (Manual) 1.1 TH/MM3 1.0 TH/MM3 (1.8-7.7) (1.8-7.7) Sodium Level 135 MEQ/L (136-145) Creatinine 0.53 MG/DL (0.60-1.30) Aspartate Amino Transf 9 U/L (15-37) (AST/SGOT) Albumin 2.8 GM/DL (3.4-5.0) PE at Discharge General: No acute distress. Heart: Regular rate and rhythm. No murmur. Tracheal site with yellowish discharge and skin dryness from radiation,silver sulfadiazine on wound Lungs: Clear to auscultation bilaterally. No wheezes, rales, or rhonchi. Breathing is nonlabored. Abdomen: Soft, nontender, nondistended. Extremities: No lower extremity edema. No calf tenderness. Psych: Alert and oriented, no focal deficits Pt Condition on Discharge: Stable Discharge Disposition: Discharge Home Discharge Instructions DIET: Follow Instructions for: As Tolerated, No Restrictions Activities you can perform: Regular-No Restrictions Maggie Bains MD Jul 01, 2016 16:57
[2016-07-01 20:00] VITALS: BP 113/75; PULSE 84; RESP 17; TEMP 97.7; O2SAT 94
[2016-07-01] MEDS: REMOVE OLD NICODERM (NICOTINE) PATCH TD SCH (21:00)
[2016-07-01] MEDS: TEMAZEPAM 15 MG CAP PO PRN (21:53)
[2016-07-02] VITALS: BP 114/72; PULSE 103; RESP 18; TEMP 98.2; O2SAT 97
[2016-07-02 05:44] VITALS: BP 117/72; PULSE 69; RESP 17; TEMP 97.6; O2SAT 96
[2016-07-02] MEDS: oxyCODONE/ACETAMINOPHEN 10 MG/325 MG TAB PO PRN ×2 (06:06→11:14)
[2016-07-02] MEDS: ENOXAPARIN SODIUM 40 MG/0.4 ML SYRINGE SQ SCH (06:06)
[2016-07-02 07:21] LABS: AUTOMATED NEUTROPHIL # 1.4 TH/MM3 (1.8-7.7); BASOPHIL % 0.7 % (0.0-2.0); EOSINOPHIL # 0.1 TH/MM3 (0-0.4); EOSINOPHIL % 3.2 % (0.0-4.0); HEMO FLAGS DIFF FINAL; LYMPH % 11.4 % (9.0-44.0); LYMPHOCYTE # 0.3 TH/MM3 (1.0-4.8); MEAN CELL VOLUME 92.6 FL (80.0-100.0); MEAN CORPUSCULAR HEMOGLOBIN 31.1 PG (27.0-34.0); MEAN CORPUSCULAR HGB CONC 33.6 % (32.0-36.0); MONO % 23.8 % (0.0-8.0); NEUT % 60.9 % (16.0-70.0); PLATELET COUNT 169 TH/MM3 (150-450); RED BLOOD COUNT 3.67 MIL/MM3 (4.50-5.90); RED CELL DISTRIBUTION WIDTH 15.6 % (11.6-17.2); WHITE BLOOD COUNT 2.3 TH/MM3 (4.0-11.0)
[2016-07-02 08:00] VITALS: BP 128/99; PULSE 100; RESP 20; O2SAT 100
--- NOTE | 2016-07-02 08:41 | HHI.PR ---
Subjective Remarks pt says he feels well. no cp or sob. no n/v. no con. Objective Vital Signs Date Time Temp Pulse Resp B/P Pulse Ox O2 Delivery O2 Flow Rate FiO2 07/02/16 08:00 100 20 128/99 100 07/02/16 05:44 97.6 69 17 117/72 96 07/02/16 00:00 98.2 103 18 114/72 97 07/01/16 20:00 97.7 84 17 113/75 94 07/01/16 16:00 97.2 88 16 130/82 95 07/01/16 12:41 96.7 82 16 136/87 94 I/O 07/01/16 07/01/16 07/01/16 07/02/16 07/02/16 07/02/16 07:00 15:00 23:00 07:00 15:00 23:00 Intake Total 600 ml 1057 ml 480 ml Balance 600 ml 1057 ml 480 ml Intake Oral 600 ml 480 ml TPN/PPN 943 ml Lipid 114 ml # Voids 4 3 # Bowel Movements 1 Result Diagram: 07/02/16 0631 07/01/16 0422 Procedures 05/05/16 Laryngeal mass biopsy 05/05/16 tracheostomy Objective Remarks GENERAL: Patient sitting up in bed. Off oxygen. alert and oriented 3. Appears comfortable. trache out. SKIN: Warm and dry. HEAD: Normocephalic. EYES: No scleral icterus. No injection or drainage. NECK: Supple, trachea midline. No JVD. trache out., surrounding area healing. CARDIOVASCULAR: Regular rate and rhythm without murmurs, gallops, or rubs. RESPIRATORY: Breath sounds equal bilaterally. No accessory muscle use. GASTROINTESTINAL: Abdomen soft, non-tender, nondistended. no PEG tube. MUSCULOSKELETAL: No cyanosis, or edema. BACK: Nontender without obvious deformity. No CVA tenderness. A/P Assessment and Plan 06/09/16. Patient seen and examined. Vital signs continue stable. again, No acute changes. Awaiting placement.appreciate case management assistance.continue to monitor. //Laryngeal mass/ Invasive squamous cell carcinoma Oncology, ENT, General Surgery following. Status post biopsy of the mass, status post tracheostomy. PEG tube placed on 05/06/16. - On regular diet as per surgery, speech therapy following. - chemotherapy and radiation per oncology. -Labs overall stable. Mild hyponatremia. Follow labs as needed. //Skin Rash Patient states for the last 2 days he's noticed a red rash on both of his arms from his elbow up to his shoulder. Suspect this could be a contact dermatitis, or related to laundry soaps or irritations from hospital linen. Patient has been here over a month, and has not had any issue. Possibly related to radiation and or chemotherapy - Treat with hydrocortisone 2.5% topically twice a day -06/02. Antecubital space, patient says he sleeps with arms bent. Appears to be fungal in nature. Will add topical miconazole. -06/03. Slightly improved. Still waiting for miconazole. =much improved. //Hemoptysis The pt endorses small amounts of blood occasionally with sputum production. S/t cancer, trach and radiation. - continue to monitor. CBC stable. //COPD Stable at this time. - continue bronchodilators, mucolytics and incentive spirometry. This is a 61-year-old male admitted for laryngeal squamous cell carcinoma //Laryngeal squamous cell carcinoma: -Appreciate oncology, ENT, general surgery recommendations. S/P tracheostomy removal. -Continue chemotherapy with cisplatin for 6 weeks, continue radiation therapy. - Finish cisplatin for 1 more cycle. No dose again today because of leukopenia. -Appreciate pulmonology recommendations. =uptrending ANC. d/w oncology PA. appreciate assist. //COPD: Continue supplemental oxygen. Bronchodilators as needed. =resp status stable. cont to monitor // Tobacco abuse: Counseled to quit smoking. // Insomnia -continue Restoril //DVT prophylaxis: SCDs, JEREMY mathewe. Lovenox. //Healthcare associated pneumonia: resolved. Status post treatment vancomycin, cefepime. Discharge Planning -cont chemo/rad as per oncology. dc within two weeks. appreciate cm assist. Davide Bennett MD Jul 02, 2016 08:41
[2016-07-02] MEDS: NICOTINE 7 MG/24 HR PATCH TD SCH (08:57)
[2016-07-02] MEDS: DOCUSATE SODIUM 100 MG CAP PO SCH ×2 (08:57→11:13)
[2016-07-02] MEDS: MORPHINE SULFATE 15 MG CONTROLLED RELEASE TAB PO SCH (08:57)
[2016-07-02] MEDS: guaiFENesin E.R. 600 MG TAB PO SCH (08:57)
[2016-07-02] MEDS: DOCUSATE SODIUM 50 MG/SENNA 8.6 MG TAB PO SCH (08:57)
[2016-07-02] MEDS: PANTOPRAZOLE SOD 40 MG DELAYED RELEASE TAB PO SCH (08:57)
[2016-07-02] MEDS: SILVER SULFADIAZINE 1% CR 50 GM JAR TOPICAL SCH (08:59)
[2016-07-02] MEDS: SODIUM CHLORIDE 0.9% FLUSH 5 ML FLUSH FLUSH SCH (08:59)
[2016-07-02] MEDS: MICONAZOLE NITRATE 2% CREAM 15 GM TOPICAL SCH (09:00)
[2016-07-02] MEDS: HYDROCORTISONE 2.5% CREAM 30 GM TOPICAL SCH (09:00)
[2016-07-02] MEDS ORDERED: FILGRASTIM 300 MCG/ML VIAL SQ ONE (09:30)
--- NOTE | 2016-07-02 13:08 | HHI.DS ---
Discharge Summary Admission Date May 01, 2016 at 15:00 Discharge Date: Jul 02, 2016 Admitting Diagnosis laryngeal mass with airway compromise (1) Laryngeal mass ICD Code: J38.7 (2) COPD (chronic obstructive pulmonary disease) ICD Code: J44.9 (3) Tobacco abuse ICD Code: Z72.0 (4) Nausea & vomiting ICD Code: R11.2 (5) Hyponatremia ICD Code: E87.1 (6) Low grade fever ICD Code: R50.9 (7) Leukocytosis ICD Code: D72.829 Procedures 05/05/16 Laryngeal mass biopsy. Please see pathology report. 05/05/16 tracheostomy. Removed 06/24. 05/06/16 gastrostomy tube placement. Removed on 06/23. Brief History - From Admission The patient is a 61-year-old male who presented to the emergency department yesterday with complaint of sore throat. He has been having some pain in his neck and throat since January. He was seen in the emergency department at the end of January and diagnosed with pharyngitis. He was treated with amoxicillin at that time and instructed to follow-up with ENT. It was about the end of January that he developed hoarseness, which has persisted. The patient states that he has continued to have pain on the side of his neck that eventually radiated up to his ear. Yesterday the pain had worsened to the point where it was intolerable and he went to the emergency department. He denies shortness of breath or chest pain. Denies fever, chills, night sweats. Throat pain is improved today. CBC/BMP: 07/02/16 0631 07/01/16 0422 Significant Findings Laboratory Tests Test 06/30/16 07/01/16 07/02/16 11:30 04:22 06:31 White Blood Count 1.9 TH/MM3 1.9 TH/MM3 2.3 TH/MM3 (4.0-11.0) (4.0-11.0) (4.0-11.0) Red Blood Count 3.74 MIL/MM3 3.54 MIL/MM3 3.67 MIL/MM3 (4.50-5.90) (4.50-5.90) (4.50-5.90) Hemoglobin 11.5 GM/DL 11.3 GM/DL 11.4 GM/DL (13.0-17.0) (13.0-17.0) (13.0-17.0) Hematocrit 34.5 % 32.0 % 34.0 % (39.0-51.0) (39.0-51.0) (39.0-51.0) Mean Platelet Volume 6.5 FL 6.7 FL 6.7 FL (7.0-11.0) (7.0-11.0) (7.0-11.0) Monocytes (%) (Auto) 25.2 % 28.2 % 23.8 % (0.0-8.0) (0.0-8.0) (0.0-8.0) Neutrophils # (Auto) 1.0 TH/MM3 1.0 TH/MM3 1.4 TH/MM3 (1.8-7.7) (1.8-7.7) (1.8-7.7) Lymphocytes # (Auto) 0.3 TH/MM3 0.3 TH/MM3 0.3 TH/MM3 (1.0-4.8) (1.0-4.8) (1.0-4.8) Monocytes % 21 % (0-8) 21 % (0-8) Neutrophils # (Manual) 1.1 TH/MM3 1.0 TH/MM3 (1.8-7.7) (1.8-7.7) Sodium Level 135 MEQ/L (136-145) Creatinine 0.53 MG/DL (0.60-1.30) Aspartate Amino Transf 9 U/L (15-37) (AST/SGOT) Albumin 2.8 GM/DL (3.4-5.0) Imaging Last Impressions Chest X-Ray 05/10/16 0000 Signed Impressions: Service Date/Time: Tuesday, May 10, 2016 11:23 - CONCLUSION: Atelectasis at the lung bases. No other acute cardiopulmonary disease identified. Suhail Calderon MD Gastrostomy Tube Placement 05/06/16 0000 Signed Impressions: Service Date/Time: Friday, May 06, 2016 13:15 - CONCLUSION: Uncomplicated gastrostomy tube placement as above. Fabian Blackwood Jr., MD Chest CT 05/03/16 0000 Signed Impressions: Service Date/Time: Tuesday, May 03, 2016 11:33 - CONCLUSION: 1. Emphysema and right upper lobe scarring. Scarring is mildly nodular but still most likely benign. Six-month followup noncontrast chest CT recommended. 2. No lymphadenopathy. 3. Coronary artery calcification. John Mcdonnell MD Abdomen/Pelvis CT 05/03/16 0000 Signed Impressions: Service Date/Time: Tuesday, May 03, 2016 11:33 - CONCLUSION: 1. No malignancy or other acute abnormality seen within the abdomen or pelvis. 2. Diverticulosis of the colon without acute inflammatory changes. 3. Atherosclerotic aorta. No aneurysm. John Mcdonnell MD Neck CT 05/01/16 0000 Signed Impressions: Service Date/Time: April 13:51 - CONCLUSION: 1. Large mass involving the larynx measuring 3.5 x 2.0 cm causing significant compromise to the airway. No adenopathy observed. Malignancy is felt most likely. 2. Severe emphysematous changes. 3. Areas of probable scarring involving the right lung apex. This is nodular in appearance in one area that is partially visualized. I suggest a CT of the thorax to further evaluate. Fabian Blackwood Jr., MD PE at Discharge General: No acute distress. Heart: Regular rate and rhythm. No murmur. Tracheal site with yellowish discharge and skin dryness from radiation,silver sulfadiazine on wound Lungs: Clear to auscultation bilaterally. No wheezes, rales, or rhonchi. Breathing is nonlabored. Abdomen: Soft, nontender, nondistended. Extremities: No lower extremity edema. No calf tenderness. 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 Oncology was consulted, patient received 5 doses of cisplatin 40 mg/m2, most recently on 06/17/16 as well as xRT treatments. He underwent tracheostomy on 05/05 for respiratory support, however this was able to be removed on 06/24. Pulmonology followed during admission. For difficulty swallowing, patient received gastrostomy tube on 05/06, however patient subsequently tolerating diet and this was removed on 06/23. Patient did develop some neutropenia, which was up trending, ANC 1.4 on the day of discharge, and planned cisplatin was held. He will follow-up with oncology, radiation therapy as outpatient. For problem-based summary for most recent progress note, please see below. This is a 61-year-old male admitted for laryngeal squamous cell carcinoma //Laryngeal squamous cell carcinoma: -Appreciate oncology, ENT, general surgery recommendations. S/P tracheostomy removal. -Continue chemotherapy with cisplatin for 6 weeks, continue radiation therapy. - Finish cisplatin for 1 more cycle. No dose again today because of leukopenia. -Appreciate pulmonology recommendations. =uptrending ANC. d/w oncology PA. appreciate assist. //COPD: Continue supplemental oxygen. Bronchodilators as needed. =resp status stable. cont to monitor // Tobacco abuse: Counseled to quit smoking. // Insomnia -continue Restoril //DVT prophylaxis: SCDs, JEREMY hose. Lovenox. //Healthcare associated pneumonia: resolved. Status post treatment vancomycin, cefepime. Pt Condition on Discharge: Stable Discharge Disposition: Discharge Home Discharge Time: > 30 minutes Discharge Instructions DIET: Follow Instructions for: As Tolerated, No Restrictions Activities you can perform: Regular-No Restrictions Follow up Referrals: Oncology - 2-3 Days with Urban Lofton MD Oncology - 2-3 Days with Nelson Walden MD Pulmonology - 3-5 Days with Kamran Andrew MD New Medications: Miconazole Topical (Miconazole Topical) 2 % Pow 1 APPLIC TOPICAL BID apply to forearm rash Rash Days 7 Ref 0 CAN Docusate Sodium (Dok) 100 Mg Cap 100 MG PO TID Constipation Days 30 CAP Nicotine Patch (Nicotine Patch) 7 Mg/24 Hr Patch 1 PATCH TD DAILY nicotine withdrawal #10 PATCH Oxycodone-Acetaminophen (Oxycodone-Acetaminophen) 5-325 mg Tab 1-2 TAB PO Q4H PRN PAIN SCALE 1 TO 10 #60 TAB Pantoprazole (Pantoprazole) 40 Mg Tab 40 MG PO DAILY ulcer prevention Days 30 TAB Davide Bennett MD Jul 02, 2016 13:08
== END 2016-07-02 13:08 | disposition home or self-care (01) | DRG 11 ==
LOC: PHED 11:40 → PHEDA 15:00 → N03B 18:21 → HOCB 05-06 22:50
PROVIDERS: ADMIT Internal Medicine; ATTEND Internal Medicine
PROC: 0CJS8ZZ Inspection of Larynx, Via Natural or Artificial Opening Endoscopic (ICD-10-PCS; principal; 2016-05-02)
PROC: 0CBS8ZX Excision of Larynx, Via Natural or Artificial Opening Endoscopic, Diagnostic (ICD-10-PCS; 2016-05-05)
PROC: 0CBT8ZX Excision of Right Vocal Cord, Via Natural or Artificial Opening Endoscopic, Diagnostic (ICD-10-PCS; 2016-05-05)
PROC: 0B113F4 Bypass Trachea to Cutaneous with Tracheostomy Device, Percutaneous Approach (ICD-10-PCS; 2016-05-05 07:37)
PROC: 0DH63UZ Insertion of Feeding Device into Stomach, Percutaneous Approach (ICD-10-PCS; 2016-05-06)
PROC: 3E03305 Introduction of Other Antineoplastic into Peripheral Vein, Percutaneous Approach (ICD-10-PCS; 2016-05-20)
PROC: D90B1ZZ Beam Radiation of Larynx using Photons 1 - 10 MeV (ICD-10-PCS; 2016-05-21)
PROC: 0BP1XFZ Removal of Tracheostomy Device from Trachea, External Approach (ICD-10-PCS; 2016-06-24)
DX: D02.0 Carcinoma in situ of larynx (principal); J18.9 Pneumonia, unspecified organism; E22.2 Syndrome of inappropriate secretion of antidiuretic hormone; I95.9 Hypotension, unspecified; R04.2 Hemoptysis; D70.9 Neutropenia, unspecified; J44.9 Chronic obstructive pulmonary disease, unspecified; F17.210 Nicotine dependence, cigarettes, uncomplicated; R49.0 Dysphonia; F10.20 Alcohol dependence, uncomplicated; R11.2 Nausea with vomiting, unspecified; Y95 Nosocomial condition; G47.00 Insomnia, unspecified; K59.00 Constipation, unspecified; L24.0 Irritant contact dermatitis due to detergents; F10.21 Alcohol dependence, in remission
CPT/HCPCS: 49440; 70491; 71010; 71020; 71260; 74177; 76937; 76942; 77014; 77263; 77300; 77301; 77334; 77336; 77386; 77387; 77427; 77470; 80048; 80053; 80069; 80202; 81001; 83735; 84100; 85007; 85025; 85027; 85610; 85730; 86850; 86900; 86901; 87040; 87070; 87077; 87186; 87205; 87641; 88305; 93005; 94620; 94640; 94664; 96361; 96374; 99152; 99153; 99233; A7520; A7521; C1769; C1887; J0171; J0461; J0690; J0692; J1100; J1442; J1610; J1626; J1650; J1940; J2150; J2250; J2270; J2370; J2405; J2765; J3010; J3370; J3475; J3480; J7040; J7050; J7120; J9060; Q9967

== ENCOUNTER 2016-10-22 12:28 | Inpatient (IN) | payer MEDICAID, OTHER ==
[2016-10-22] VITALS (10 sets, daily range): BP systolic 128–174; BP diastolic 72–114; PULSE 72–98; RESP 16–27; TEMP 97.7–98.3; O2SAT 96–100
[~2016-10-22 12:28] MED LIST changes: -AMOX875T PO; +DOCU1CAP39 PO; +MICO1POW14 TOPICAL; +NICO7DIS2 TD; +OXYC1TAB63 PO; +PANT40TA3 PO
[2016-10-22] MEDS ORDERED: SODIUM CHLORID 0.9% 500 ML INJ 500 ML IV ONE (13:15)
--- NOTE | 2016-10-22 13:22 | PD ---
HPI Chief Complaint: ENT Complaint Time Seen by Provider: 12:56 Travel History International Travel<30 days: No Contact w/Intl Traveler<30days: No Traveled to known affect area: No History of Present Illness HPI The patient is a 61-year-old male who presents to the emergency department via private vehicle for neck swelling. The patient states he was admitted to the hospital earlier this year and subsequently diagnosed with laryngeal squamous cell carcinoma. The patient states he underwent chemotherapy by his medical oncologist, Dr. Lofton and radiation therapy. The patient states he is no longer undergoing therapy, but did have an appointment to see his radiation oncologist earlier today. However, he was unable to make the appointment. He complains of neck swelling that has been present intermittently for the last several weeks, is worse in the morning, improved throughout the day. He is able to swallow, had his previous gastrostomy tube removed. He does complain of a dry mostly nonproductive cough, continues to use tobacco. He denies any acute chest pain or shortness of breath. He does not have a primary physician, states she was recently changed from Medicaid to melena and is now changing insurance companies once again. PFSH Past Medical History Hx Anticoagulant Therapy: No Cancer: No Cardiovascular Problems: No Chemotherapy: Yes (3 MONTHS AGO) COPD: Yes Diabetes: No Diminished Hearing: No Endocrine: No Immune Disorder: No Kidney Stones: Yes (1 passed without intervention over 20 years ago) Musculoskeletal: No Neurologic: No Psychiatric: No Reproductive: No Respiratory: Yes (COPD) Past Surgical History Oral Surgery: Yes (tonsillectomy) Tonsillectomy: Yes Social History Alcohol Use: No Tobacco Use: Yes (1 pack every 3 days) Substance Use: No Allergies-Medications (Allergen,Severity, Reaction): Coded Allergies: No Known Allergies (Unverified , 10/22/16) Reported Meds & Prescriptions Reported Meds & Active Scripts Active Review of Systems Except as stated in HPI: all other systems reviewed are Neg General / Constitutional: No: Fever HENT: Positive: Other (neck swelling) Cardiovascular: No: Chest Pain or Discomfort Respiratory: Positive: Cough, No: Shortness of Breath Gastrointestinal: No: Nausea, Vomiting, Abdominal Pain, Loss of Appetite Musculoskeletal: Positive: Weakness Physical Exam Narrative GENERAL: Awake, alert, pleasant 61-year-old male who appears his stated age and is in no acute respiratory distress. SKIN: Focused skin assessment warm/dry. Old appearing abrasions to the right forearm. HEAD: Atraumatic. Normocephalic. EYES: Pupils equal and round. No scleral icterus. No injection or drainage. ENT: No nasal bleeding or discharge. Mucous membranes pink and moist. NECK: Trachea midline. No JVD. Skin changes noted over the anterior aspect of the neck. No obvious edema noted. CARDIOVASCULAR: Regular rate and rhythm. No murmur appreciated. RESPIRATORY: No accessory muscle use. Few scattered rhonchi. GASTROINTESTINAL: Abdomen soft, non-tender, nondistended. No rebound tenderness. MUSCULOSKELETAL: No obvious deformities. No clubbing. No cyanosis. No edema. NEUROLOGICAL: Awake and alert. No obvious cranial nerve deficits. Motor grossly within normal limits. Normal speech. PSYCHIATRIC: Appropriate mood and affect; insight and judgment normal. Data Data Last Documented VS Vital Signs Date Time Temp Pulse Resp B/P Pulse Ox O2 Delivery O2 Flow Rate FiO2 10/22/16 13:11 90 16 10/22/16 13:05 129/79 99 Room Air 10/22/16 12:[address] Soft Tiss Neck W Iv Cont (10/22/16 ) Complete Blood Count With Diff (10/22/16 13:09) Basic Metabolic Panel (Bmp) (10/22/16 13:09) Chest, Single Ap (10/22/16 ) Sodium Chlorid 0.9% 500 Ml Inj (Ns 500 M (10/22/16 13:15) Iohexol 350 Inj (Omnipaque 350 Inj) (10/22/16 14:32) Admit Order (Ed Use Only) (10/22/16 15:27) Labs Laboratory Tests Test 10/22/16 13:36 White Blood Count 5.2 TH/MM3 Red Blood Count 4.32 MIL/MM3 Hemoglobin 14.3 GM/DL Hematocrit 41.7 % Mean Corpuscular Volume 96.4 FL Mean Corpuscular Hemoglobin 33.0 PG Mean Corpuscular Hemoglobin 34.2 % Concent Red Cell Distribution Width 12.3 % Platelet Count 181 TH/MM3 Mean Platelet Volume 6.7 FL Neutrophils (%) (Auto) 64.6 % Lymphocytes (%) (Auto) 12.6 % Monocytes (%) (Auto) 9.4 % Eosinophils (%) (Auto) 12.8 % Basophils (%) (Auto) 0.6 % Neutrophils # (Auto) 3.3 TH/MM3 Lymphocytes # (Auto) 0.7 TH/MM3 Monocytes # (Auto) 0.5 TH/MM3 Eosinophils # (Auto) 0.7 TH/MM3 Basophils # (Auto) 0.0 TH/MM3 CBC Comment DIFF FINAL Differential Comment Sodium Level 129 MEQ/L Potassium Level 4.1 MEQ/L Chloride Level 95 MEQ/L Carbon Dioxide Level 27.3 MEQ/L Anion Gap 7 MEQ/L Blood Urea Nitrogen 7 MG/DL Creatinine 0.64 MG/DL Estimat Glomerular Filtration 128 ML/MIN Rate Random Glucose 88 MG/DL Calcium Level 8.9 MG/DL MDM Medical Decision Making Medical Screen Exam Complete: Yes Emergency Medical Condition: Yes Medical Record Reviewed: Yes Interpretation(s) Laboratory Tests Test 10/22/16 13:36 White Blood Count 5.2 TH/MM3 Red Blood Count 4.32 MIL/MM3 Hemoglobin 14.3 GM/DL Hematocrit 41.7 % Mean Corpuscular Volume 96.4 FL Mean Corpuscular Hemoglobin 33.0 PG Mean Corpuscular Hemoglobin 34.2 % Concent Red Cell Distribution Width 12.3 % Platelet Count 181 TH/MM3 Mean Platelet Volume 6.7 FL Neutrophils (%) (Auto) 64.6 % Lymphocytes (%) (Auto) 12.6 % Monocytes (%) (Auto) 9.4 % Eosinophils (%) (Auto) 12.8 % Basophils (%) (Auto) 0.6 % Neutrophils # (Auto) 3.3 TH/MM3 Lymphocytes # (Auto) 0.7 TH/MM3 Monocytes # (Auto) 0.5 TH/MM3 Eosinophils # (Auto) 0.7 TH/MM3 Basophils # (Auto) 0.0 TH/MM3 CBC Comment DIFF FINAL Differential Comment Sodium Level 129 MEQ/L Potassium Level 4.1 MEQ/L Chloride Level 95 MEQ/L Carbon Dioxide Level 27.3 MEQ/L Anion Gap 7 MEQ/L Blood Urea Nitrogen 7 MG/DL Creatinine 0.64 MG/DL Estimat Glomerular Filtration 128 ML/MIN Rate Random Glucose 88 MG/DL Calcium Level 8.9 MG/DL Last Impressions Neck CT 10/22/16 0000 Signed Impressions: Service Date/Time: Saturday, October 22, 2016 14:21 - CONCLUSION: Significant soft tissues thickening along the anterior soft tissues of the neck at the level of the hypopharynx and larynx most characteristic of post radiation cellulitis. Thickened and indurated glottic, supraglottic and hypopharyngeal soft tissues characteristic of post radiation change. Significant compromise of the airway is noted. No evidence of malignant lymphadenopathy. Dakotah Recinos MD Chest X-Ray 10/22/16 0000 Signed Impressions: Service Date/Time: Saturday, October 22, 2016 13:17 - CONCLUSION: No acute disease. Puma Simpson MD FACR Differential Diagnosis Differential diagnosis includes recurrent laryngeal squamous cell carcinoma, post radiation changes, postradiation edema, pharyngitis, airway compromise, laryngitis. Narrative Course IV was established, labs are drawn and sent, and the patient was placed on cardiac telemetry monitoring and continuous pulse oximetry monitoring. CT of the neck with IV contrast was ordered. Chest x-ray was obtained. Sodium 129, previous labs reveal sodiums mostly in the 130s. Laboratory evaluation is unremarkable. The patient was afebrile and white count was normal. CT soft tissue neck reveals significant soft tissues thickening along the anterior soft tissues of the neck at the level of the hypopharynx and larynx most characteristic of post radiation cellulitis. Taken an indurated glottic, supraglottic, and hypopharyngeal soft tissues characteristic of post radiation change. Significant compromise of the airway is noted. No evidence of malignant lymphadenopathy. As the patient does have significant airway compromise with findings characteristic of post radiation cellulitis, the patient will be admitted. The patient appears to be maintaining his airway currently, but will need admission to the intensive surgical care unit, unsure if the patient will need repeat tracheostomy that was originally performed by Dr. Call. The patient may also benefit from reevaluation by ENT for direct laryngoscopy. I discussed the patient with Dr. Ponce who agrees with admission in the intensive surgical care unit as he may need emergent airway is symptoms persist or progress. Sepsis Criteria SIRS Criteria (2 or more): Heart rate over 90 Physician Communication Physician Communication I discussed the patient with Dr. Ponce who agrees with admission. Diagnosis Primary Impression: Radiation injuries Qualified Code: T66.XXXA - Radiation injury, initial encounter Additional Impression: Airway compromise Admitting Information Admitting Physician Requests: Admit Patient Instructions: General Instructions Med/Other Pt SpecificInfo: Prescription(s) given Disposition: DISCHARGE HOME Condition: Serious Tor Frye MD Oct 22, 2016 13:22
--- NOTE | 2016-10-22 13:32 | RADRPT ---
EXAM DATE/TIME: 10/22/2016 13:17 [facility] COMPARISON: No previous studies available for comparison. INDICATIONS : Short of breath. Cough MEDICAL HISTORY : Chronic obstructive pulmonary disease. Carcinoma, throat SURGICAL HISTORY : Throat tumor removed ENCOUNTER: Initial ACUITY: 1 day PAIN SCORE: 0/10 LOCATION: Bilateral chest FINDINGS: A single view of the chest demonstrates the lungs to be symmetrically aerated without evidence of mas s, infiltrate or effusion. The cardiomediastinal contours are unremarkable. Osseous structures are intact. CONCLUSION: No acute disease. Puma Simpson MD FACR on October 22, 2016 at 13:31 Board Certified Radiologist. This report was verified electronically.
[2016-10-22 13:50] LABS: AUTOMATED NEUTROPHIL # 3.3 TH/MM3 (1.8-7.7); BASOPHIL % 0.6 % (0.0-2.0); EOSINOPHIL # 0.7 TH/MM3 (0-0.4); EOSINOPHIL % 12.8 % (0.0-4.0); HEMATOCRIT 41.7 % (39.0-51.0); LYMPH % 12.6 % (9.0-44.0); LYMPHOCYTE # 0.7 TH/MM3 (1.0-4.8); MEAN CELL VOLUME 96.4 FL (80.0-100.0); MEAN CORPUSCULAR HGB CONC 34.2 % (32.0-36.0); MONO % 9.4 % (0.0-8.0); NEUT % 64.6 % (16.0-70.0); PLATELET COUNT 181 TH/MM3 (150-450); RED BLOOD COUNT 4.32 MIL/MM3 (4.50-5.90); RED CELL DISTRIBUTION WIDTH 12.3 % (11.6-17.2); WHITE BLOOD COUNT 5.2 TH/MM3 (4.0-11.0)
[2016-10-22 13:54] LABS: HEMO FLAGS DIFF FINAL
[2016-10-22 13:59] LABS: POTASSIUM 4.1 MEQ/L (3.5-5.1)
[2016-10-22 14:03] LABS: BICARBONATE 27.3 MEQ/L (21.0-32.0)
[2016-10-22] MEDS ORDERED: IOHEXOL 350 MG/ML 10 ML VIAL (for RAD DIAG) IV ONE (14:32)
--- NOTE | 2016-10-22 15:18 | RADRPT ---
EXAM DATE/TIME: 10/22/2016 14:21 [facility] COMPARISON: CT SOFT TISSUE NECK W CONTRAST, May 01, 2016, 13:51. INDICATIONS : Neck swelling. IV CONTRAST: 65 cc Omnipaque 350 (iohexol) IV RADIATION DOSE: 12.44 CTDIvol (mGy) MEDICAL HISTORY : Chronic obstructive pulmonary disease. Renal calculi. Throat cancer. SURGICAL HISTORY : Tonsillectomy. ENCOUNTER: Initial ACUITY: 2 days PAIN SCALE: 6/10 LOCATION: neck TECHNIQUE: Volumetric scanning of the neck was performed. Using automated exposure control and adjustment of th e mA and/or kV according to patient size, radiation dose was kept as low as reasonably achievable to obtain optimal diagnostic quality images. DICOM format image data is available electronically for r eview and comparison. FINDINGS: NASOPHARYNX: The nasopharyngeal airway has a normal configuration. No mucosal thickening or mass is seen. OROPHARYNX: The intrinsic muscles of the tongue are symmetric. The tonsillar pillars are intact. The prevertebr al soft tissues are not thickened. LARYNX: Significant soft tissue swelling and induration is identified throughout the larynx and hypopharynx. The discrete right sided glottic and supraglottic mass evident on the prior study cannot be clearly d efined. There is significant compromise of the airway. The subcutaneous tissues anterior to the laryn x and in the submandibular region are significantly thickened and indurated. There are no organized f luid collections. PARAPHARYNGEAL: The parapharyngeal space is intact. SALIVARY GLANDS: The parotid and submandibular glands are intact. LYMPH NODES: No enlarged or necrotic-appearing nodes. THYROID: Homogeneous enhancement without evidence of nodule. BONES: Unremarkable. CONCLUSION: Significant soft tissues thickening along the anterior soft tissues of the neck at th e level of the hypopharynx and larynx most characteristic of post radiation cellulitis. Thickened and indurated glottic, supraglottic and hypopharyngeal soft tissues characteristic of post radiation change. Significant compromise of the airway is noted. No evidence of malignant lymphadenopathy. Dakotah Recinos MD on October 22, 2016 at 14:53 Board Certified Radiologist. This report was verified electronically.
[2016-10-22] MEDS ORDERED: VANCOMYCIN INJ 1,000 MG in SODIUM CHLOR 0.9% 250 ML INJ 250 ML IV ONE (15:30)
[2016-10-22] MEDS ORDERED: PIPERACIL-TAZO 4.5 GM PREMIX 100 ML IV ONE (15:30)
--- NOTE | 2016-10-22 17:09 | HHI.HP ---
HPI Service Critical Care Medicine Primary Care Physician No Primary Care Physician Admission Diagnosis postradiation cellulitis, postradiation neck changes, airway comprom Diagnosis: Chief Complaint: Swelling of neck. Travel History International Travel<30 Days: No Contact w/Intl Traveler <30 Da: No Traveled to Known Affected Are: No History of Present Illness HPI Service Critical Care Medicine Primary Care Physician No Primary Care Physician Admission Diagnosis Cellulitis, swelling neck. Diagnosis: (1) Supraglottic airway obstruction Diagnosis: Principal (2) Cellulitis, neck Diagnosis: Principal (3) Pharyngeal carcinoma, squamous cell Diagnosis: Secondary (4) COPD (chronic obstructive pulmonary disease) Diagnosis: Secondary Chief Complaint: Neck swelling and SOB. History of Present Illness 61 y/o man with carcinoma of pharynx diagnosed in April 2016, received trach and PEG - both subsequently removed. Underwent chemo and XRT at [facility], Dr. Lofton. Now presents with neck edema and cellulitis, and noticeable upper airway partial obstruction. Will receive antibiotics at [place] ED and transfer to [facility] for airway precautions/possibly replace trach. Past Family Social History Allergies: Coded Allergies: No Known Allergies (Unverified , 10/22/16) Past Medical History Past Medical History Hx Anticoagulant Therapy: No Cancer: No Cardiovascular Problems: No Chemotherapy: Yes (3 MONTHS AGO) COPD: Yes Diabetes: No Diminished Hearing: No Endocrine: No Immune Disorder: No Kidney Stones: Yes (1 passed without intervention over 20 years ago) Musculoskeletal: No Neurologic: No Psychiatric: No Reproductive: No Respiratory: Yes (COPD) Past Surgical History Oral Surgery: Yes (tonsillectomy) Tonsillectomy: Yes Social History Alcohol Use: No Tobacco Use: Yes (1 pack every 3 days) Substance Use: No Allergies-Medications Allergies-Medications (Allergen,Severity, Reaction): Coded Allergies: No Known Allergies (Unverified , 10/22/16) Reported Meds & Prescriptions Reported Meds & Active Scripts Active Physical Exam Vital Signs Vital Signs Date Time Temp Pulse Resp B/P Pulse Ox O2 Delivery O2 Flow Rate FiO2 10/22/16 16:00 83 16 128/75 99 Room Air 10/22/16 15:15 76 16 132/78 98 Room Air 10/22/16 14:10 80 16 144/86 99 Room Air 10/22/16 13:11 90 16 10/22/16 13:05 76 20 129/79 99 Room Air 10/22/16 12:40 98.3 98 20 131/114 100 Physical Exam GEN: Awake, alert, angry 61-year-old male. HEAD: Atraumatic. Normocephalic. EYES: Pupils equal and round. No scleral icterus. No injection or drainage. ENT: No nasal bleeding or discharge. Mucous membranes pink and moist. NECK: Trachea midline. Radiation skin changes noted over the anterior aspect of the neck, soft tissue is thick, firm, edematous. CARDIOVASCULAR: Regular rate and rhythm. No murmur appreciated. No JVD. RESPIRATORY: No accessory muscle use. Mobile secretions. Good bekah air movement. GASTROINTESTINAL: Abdomen soft, non-tender, nondistended. No guarding. Healed PEG site. MUSCULOSKELETAL: No obvious deformities. No clubbing. No cyanosis. No edema. NEUROLOGICAL: Awake and alert. No obvious cranial nerve deficits. Motor grossly within normal limits. O X 3. Laboratory Laboratory Tests Test 10/22/16 13:36 White Blood Count 5.2 Red Blood Count 4.32 Hemoglobin 14.3 Hematocrit 41.7 Mean Corpuscular Volume 96.4 Mean Corpuscular Hemoglobin 33.0 Mean Corpuscular Hemoglobin 34.2 Concent Red Cell Distribution Width 12.3 Platelet Count 181 Mean Platelet Volume 6.7 Neutrophils (%) (Auto) 64.6 Lymphocytes (%) (Auto) 12.6 Monocytes (%) (Auto) 9.4 Eosinophils (%) (Auto) 12.8 Basophils (%) (Auto) 0.6 Neutrophils # (Auto) 3.3 Lymphocytes # (Auto) 0.7 Monocytes # (Auto) 0.5 Eosinophils # (Auto) 0.7 Basophils # (Auto) 0.0 CBC Comment DIFF FINAL Differential Comment Sodium Level 129 Potassium Level 4.1 Chloride Level 95 Carbon Dioxide Level 27.3 Anion Gap 7 Blood Urea Nitrogen 7 Creatinine 0.64 Estimat Glomerular Filtration 128 Rate Random Glucose 88 Calcium Level 8.9 Result Diagram: 10/22/16 1336 10/22/16 1336 Assessment and Plan Assessment and Plan (1) Supraglottic airway obstruction Diagnosis: Principal (2) Cellulitis, neck Diagnosis: Principal (3) Pharyngeal carcinoma, squamous cell Diagnosis: Secondary (4) COPD (chronic obstructive pulmonary disease) Diagnosis: Secondary Assessment: 1. Neck swelling and cellulitis. 2. Upper airway partial obstruction. 3. Pharyngeal carcinoma. Plan: 1. Transfer to [facility]. 2. Vanc and pip/heber. 3. NPO except sips. 4. Analgesia. 5. HOB up 45 degrees. Overall impression: Patient was sent from [facility] to ED for concerns about cellulitis and upper airway obstruction. CT neck clearly demonstrates significant narrowing of the airway from the larynx through the cords and hypopharynx. The patient is adamant that his airway is satisfactory and that he can breath without problem. He does not want his trach replaced. Mal Ponce MD Oct 22, 2016 15:40 Mal Ponce MD Oct 22, 2016 17:09
[2016-10-22] MEDS: SODIUM CHLOR 0.9% 1000 ML INJ 1,000 ML IV SCH (17:12)
[2016-10-22] MEDS ORDERED: Vancomycin Consult Pharmacy 1 EA OTHER SCH (17:15)
[2016-10-22] MEDS ORDERED: SENNOSIDES 8.6 MG TAB PO PRN (17:15)
[2016-10-22] MEDS ORDERED: BISACODYL 10 MG SUPP RECTAL PRN (17:15)
[2016-10-22] MEDS ORDERED: ONDANSETRON HCL 4 MG/2 ML VIAL IV PRN (17:15)
[2016-10-22] MEDS ORDERED: CHLORHEXIDINE GLUCONATE 2 % 1 PACK (2 CLOTHS) TOP PRN (17:15)
[2016-10-22] MEDS ORDERED: MAGNESIUM HYDROXIDE SUSP 30 ML CUP PO PRN (17:15)
[2016-10-22] MEDS ORDERED: MAGNESIUM OXIDE 400 MG TAB PO PRN (17:15)
[2016-10-22] MEDS ORDERED: MORPHINE SULFATE 4 MG/ML INJ IV PRN (17:15)
[2016-10-22] MEDS ORDERED: MAGNESIUM SULFATE INJ 4 GM in SODIUM CHLORIDE 0.9% INJ 92 ML IV PRN (17:15)
[2016-10-22] MEDS ORDERED: ACETAMINOPHEN 325 MG TAB PO PRN (17:15)
[2016-10-22] MEDS ORDERED: LORazepam 2 MG/ML VIAL IV PRN (17:15)
[2016-10-22] MEDS ORDERED: RESP: ALBUTEROL 2.5 MG/IPRATROPIUM 0.5 MG NEB (PRN) INH (17:15)
[2016-10-22] MEDS ORDERED: POTASSIUM PHOSPHATE INJ 30 MMOL in SODIUM CHLOR 0.9% 250 ML INJ 250 ML IV PRN (17:15)
[2016-10-22] MEDS ORDERED: MISCELLANEOUS NURSING INFORMATION XX SCH (17:15)
[2016-10-22] MEDS ORDERED: POTASSIUM CHLORIDE 25 MEQ EFFERVESCENT TAB PO PRN (17:15)
[2016-10-22] MEDS ORDERED: MAGNESIUM SULFATE INJ 2 GM in SODIUM CHLORIDE 0.9% INJ 96 ML IV PRN (17:15)
[2016-10-22] MEDS ORDERED: POTASSIUM CHLOR 20 MEQ PREMIX 100 ML IV PRN ×2 (17:15)
[2016-10-22] MEDS ORDERED: POTASSIUM PHOSPHATE MONOBASIC 500 MG TAB PO PRN (17:15)
[2016-10-22] MEDS ORDERED: POTASSIUM CHLOR 40 MEQ PREMIX 100 ML IV PRN ×2 (17:15)
[2016-10-22] MEDS ORDERED: LACTULOSE SYRUP 20 GM/30 ML CUP PO PRN (17:15)
[2016-10-22] MEDS ORDERED: SODIUM PHOSPHATE INJ 30 MMOL in SODIUM CHLOR 0.9% 250 ML INJ 240 ML IV PRN (17:15)
[2016-10-22] MEDS ORDERED: POTASSIUM PHOSPHATE MONOBASIC 500 MG TAB PO/TUBE PRN (17:15)
[2016-10-22] MEDS: PIPERACIL-TAZO 4.5 GM PREMIX 100 ML IV SCH ×2 (18:00→23:53)
[2016-10-22] MEDS: DOCUSATE SODIUM 50 MG/SENNA 8.6 MG TAB PO SCH (21:00)
[2016-10-22] MEDS ORDERED: PHENOL 1.4% SOLN 180 ML BTL OROPHARYNG PRN (22:00)
[2016-10-23] VITALS (9 sets, daily range): BP systolic 105–137; BP diastolic 70–79; PULSE 62–91; RESP 16–22; TEMP 97.9–98.5; O2SAT 94–97
[2016-10-23] MEDS: SODIUM CHLOR 0.9% 1000 ML INJ 1,000 ML IV SCH ×3 (03:12→23:12)
[2016-10-23] MEDS: CHLORHEXIDINE GLUCONATE 2 % 1 PACK (2 CLOTHS) TOP SCH (04:00)
[2016-10-23] MEDS: VANCOMYCIN 1,000 MG/NS 250 ML IV SCH ×4 (04:34→16:38)
[2016-10-23] MEDS: PIPERACIL-TAZO 4.5 GM PREMIX 100 ML IV SCH ×4 (05:30→23:48)
[2016-10-23 06:25] LABS: AUTOMATED NEUTROPHIL # 2.7 TH/MM3 (1.8-7.7); BASOPHIL % 0.8 % (0.0-2.0); EOSINOPHIL % 20.7 % (0.0-4.0); HEMATOCRIT 39.8 % (39.0-51.0); HEMO FLAGS DIFF FINAL; LYMPH % 12.8 % (9.0-44.0); LYMPHOCYTE # 0.6 TH/MM3 (1.0-4.8); MEAN CELL VOLUME 98.3 FL (80.0-100.0); MEAN CORPUSCULAR HEMOGLOBIN 33.5 PG (27.0-34.0); MEAN CORPUSCULAR HGB CONC 34.1 % (32.0-36.0); MONO % 9.7 % (0.0-8.0); PLATELET COUNT 156 TH/MM3 (150-450); RED BLOOD COUNT 4.05 MIL/MM3 (4.50-5.90); RED CELL DISTRIBUTION WIDTH 13.1 % (11.6-17.2); WHITE BLOOD COUNT 4.7 TH/MM3 (4.0-11.0)
[2016-10-23 07:26] LABS: POTASSIUM 3.9 MEQ/L (3.5-5.1)
[2016-10-23] MEDS: PANTOPRAZOLE SODIUM 40 MG VIAL IV SCH (07:52)
[2016-10-23] MEDS: DOCUSATE SODIUM 50 MG/SENNA 8.6 MG TAB PO SCH ×2 (07:52→20:00)
--- NOTE | 2016-10-23 12:17 | HHI.PR ---
Subjective Remarks in no acute distress. says that his sob is better. denies dysphagia. afebrile. d/w the RN. Objective Vitals Vital Signs Date Time Temp Pulse Resp B/P Pulse Ox O2 Delivery O2 Flow Rate FiO2 10/23/16 08:55 97 21 10/23/16 08:00 98.5 80 16 136/74 95 10/23/16 08:00 80 10/23/16 07:00 96 10/23/16 07:00 80 10/23/16 06:00 75 10/23/16 04:00 97.9 78 22 137/76 94 10/23/16 04:00 78 10/23/16 02:00 62 10/23/16 00:00 91 10/23/16 00:00 98.5 91 18 129/79 95 10/22/16 23:00 72 10/22/16 22:00 72 10/22/16 20:00 97.7 74 27 174/83 97 10/22/16 20:00 74 10/22/16 18:41 74 16 141/72 99 10/22/16 17:56 96 21 10/22/16 17:00 73 16 10/22/16 16:00 83 16 128/75 99 Room Air 10/22/16 15:15 76 16 132/78 98 Room Air 10/22/16 15:00 76 16 10/22/16 14:10 80 16 144/86 99 Room Air 10/22/16 13:11 90 16 10/22/16 13:05 76 20 129/79 99 Room Air 10/22/16 12:40 98.3 98 20 131/114 100 I/O 10/22/16 10/22/16 10/22/16 10/23/16 10/23/16 10/23/16 06:59 14:59 22:59 06:59 14:59 22:59 Intake Total 500 ml 350 ml 535 ml Output Total 500 ml Balance 500 ml 350 ml 35 ml Intake Oral 240 ml IV Total 500 ml 350 ml 295 ml Output Urine Total 500 ml Result Diagram: 10/23/16 0529 10/23/16 0529 Imaging Last Impressions Neck CT 10/22/16 0000 Signed Impressions: Service Date/Time: Saturday, October 22, 2016 14:21 - CONCLUSION: Significant soft tissues thickening along the anterior soft tissues of the neck at the level of the hypopharynx and larynx most characteristic of post radiation cellulitis. Thickened and indurated glottic, supraglottic and hypopharyngeal soft tissues characteristic of post radiation change. Significant compromise of the airway is noted. No evidence of malignant lymphadenopathy. Dakotah Recinos MD Chest X-Ray 10/22/16 0000 Signed Impressions: Service Date/Time: Saturday, October 22, 2016 13:17 - CONCLUSION: No acute disease. Puma Simpson MD FACR Objective Remarks GENERAL: This is a well-nourished, well-developed patient, in no apparent distress. CARDIOVASCULAR: Regular rate and regular rhythm without murmurs, gallops, or rubs. RESPIRATORY: Clear to auscultation. Breath sounds equal bilaterally. No wheezes , rales, or rhonchi. GASTROINTESTINAL: Abdomen soft, non-tender, nondistended. Normal, active bowel sounds MUSCULOSKELETAL: Extremities without clubbing, cyanosis, or edema. NEURO: Alert & Oriented x4 to person, place, time, situation. Moves all ext x4 Medications and IVs Current Medications Sodium Chloride (NS 500 ml Inj) 500 ml @ 500 mls/hr BOLUS ONCE IV Last administered on 10/22/16 13:42; Start 10/22/16 at 13:15; Stop 10/22/16 at 14:14; Status DC Iohexol 65 ml 65 ml STK-MED ONCE IV Last administered on 10/22/16 14:32; Start 10/22/16 at 14:32; Stop 10/22/16 at 14:33; Status DC Piperacillin Sod/ Tazobactam Sod 100 ml @ 200 mls/hr ONCE ONCE IV Last administered on 10/22/16 15:48; Start 10/22/16 at 15:30; Stop 10/22/16 at 15:59; Status DC Vancomycin HCl 1000 mg/Sodium Chloride 250 ml @ 250 mls/hr ONCE ONCE IV Last administered on 10/22/16 16:40; Start 10/22/16 at 15:30; Stop 10/22/16 at 16:29; Status DC Sodium Chloride (NS 1000 ml Inj) 1,000 ml @ 100 mls/hr Q10H IV Last administered on 10/23/16 03:12; Start 10/22/16 at 17:12 Acetaminophen (Tylenol) 650 mg Q6H PRN PO FEVER >101F; Start 10/22/16 at 17:15 Morphine Sulfate (Morphine Inj) 2 mg Q2H PRN IV PAIN SCALE 6 TO 10; Start at 17:15 Pantoprazole Sodium (Protonix Inj) 40 mg DAILY IV Last administered on 07:52; Start 10/23/16 at 09:00 Lorazepam (Ativan Inj) 1 mg Q1H PRN IV Agitation/Sedation; Start 10/22/16 at 17: 15 Ondansetron HCl (Zofran Inj) 4 mg Q6H PRN IV NAUSEA OR VOMITING; Start 10/22/16 at 17:15 Albuterol/ Ipratropium (Duoneb Neb) 1 ampule Q2HR NEB PRN INH WHEEZING; Start 10/22/16 at 17:15 Miscellaneous Information 1 Q361D XX ; Start 10/22/16 at 17:15 Chlorhexidine Gluconate (Chlorhexidine 2% Cloth) 3 pack Taper DAILY@04 TOP Last administered on 10/23/16 04:00; Start 10/23/16 at 04:00; Stop 10/19/17 at 03:59 Chlorhexidine Gluconate (Chlorhexidine 2% Cloth) 3 pack UNSCH PRN TOP HYGIENIC CARE; Start 10/22/16 at 17:15 Senna/Docusate Sodium (Adenike-Colace) 1 tab BID PO Last administered on 07:52; Start 10/22/16 at 21:00 Magnesium Hydroxide (Milk Of Magnesia Liq) 30 ml Q12H PRN PO MILD - MODERATE CONSTIPATION; Start 10/22/16 at 17:15 Sennosides (Senokot) 17.2 mg Q12H PRN PO MODERATE - SEVERE CONSTIPATION; Start 10/22/16 at 17:15 Bisacodyl (Dulcolax Supp) 10 mg DAILY PRN RECTAL SEVERE CONSITIPATION; Start at 17:15 Lactulose 30 ml 30 ml DAILY PRN PO SEVERE CONSITIPATION; Start 10/22/16 at 17:15 Potassium Chloride 100 ml @ 50 mls/hr Q2H PRN IV For Potassium 2.8 - 3.2 mEq/L ; Start 10/22/16 at 17:15; Stop 10/23/16 at 10:32; Status DC Potassium Chloride (KCl 20 Meq Premix Inj) 100 ml @ 50 mls/hr Q2H PRN IV For Potassium 2.8 - 3.2 mEq/L; Start 10/22/16 at 17:15; Stop 10/23/16 at 10:32; Status DC Potassium Bicarb/ Potassium Chloride 50 meq 50 meq UNSCH PRN PO For Potassium 3.3 - 3.5 mEq/L; Start 10/22/16 at 17:15; Stop 10/23/16 at 10:32; Status DC Potassium Chloride 100 ml @ 25 mls/hr UNSCH PRN IV For Potassium 3.3 - 3.5 mEq /L; Start 10/22/16 at 17:15; Stop 10/23/16 at 10:32; Status DC Potassium Chloride 100 ml @ 50 mls/hr Q2H PRN IV For Potassium 3.3 - 3.5 mEq/L ; Start 10/22/16 at 17:15; Stop 10/23/16 at 10:32; Status DC Magnesium Sulfate/ Sodium Chloride (Magnesium Sulfate Inj/NS Inj) 100 ml @ 50 mls/hr UNSCH PRN IV For Magnesium 0.9 - 1.1 mg/dL; Start 10/22/16 at 17:15; Stop 10/23/16 at 10:32; Status DC Magnesium Oxide 800 mg 800 mg UNSCH PRN PO For Magnesium 1.2 - 1.6 mg/dL; Start 10/22/16 at 17:15; Stop 10/23/16 at 10:32; Status DC Magnesium Sulfate/ Sodium Chloride (Magnesium Sulfate Inj/NS Inj) 100 ml @ 50 mls/hr UNSCH PRN IV For Magnesium 1.2 - 1.6 mg/dL; Start 10/22/16 at 17:15; Stop 10/23/16 at 10:32; Status DC Potassium Phosphate 2000 mg 2,000 mg Q4H PRN PO For Phosphorus < 2.5 mg/dL; Start 10/22/16 at 17:15 Sodium Phosphate/ Sodium Chloride (Sodium Phosphate Inj/NS 250 ml Inj) 250 ml @ 42 mls/hr UNSCH PRN IV For Phosphorus < 2.5 mg/dL; Start 10/22/16 at 17:15; Stop 10/23/16 at 10:32; Status DC Potassium Phosphate 2000 mg 2,000 mg UNSCH PRN PO/TUBE SEE LABEL COMMENTS; Start 10/22/16 at 17:15 Potassium Phosphate 30 mmol/ Sodium Chloride 260 ml @ 42 mls/hr UNSCH PRN IV SEE LABEL COMMENTS; Start 10/22/16 at 17:15; Stop 10/23/16 at 10:32; Status DC Piperacillin Sod/ Tazobactam Sod 100 ml @ 200 mls/hr Q6H IV Last administered on 10/23/16 05:30; Start 10/22/16 at 18:00 Pharmacy Profile Note 0 ml @ 0 mls/hr UNSCH OTHER ; Start 10/22/16 at 17:15 Vancomycin HCl/ Sodium Chloride (Vancomycin Inj/ NS 250 ml Inj) 250 ml @ 250 mls/hr Q12H IV Last administered on 10/23/16 04:34; Start 10/23/16 at 05:00 Miscellaneous Information SPECIFIC LAB TO BE BK... 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 diet per ST recommendations. (2) hyponatremia; will continue IV fluid- BMP in am. (3) COPD (chronic obstructive pulmonary disease)- neb treatment as needed. DVT prophylaxis with SCD's. Jeanne Woodruff MD Oct 23, 2016 12:17
[2016-10-23] MEDS ORDERED: MORPHINE SULFATE 4 MG/ML INJ IV PRN (16:00)
--- NOTE | 2016-10-23 20:30 | MB ---
cc: DONAL HOOVER MD DATE OF CONSULTATION 10/23/16 REQUESTING PHYSICIAN Hospitalist physician REASON FOR CONSULTATION Patient with a history of a squamous cell carcinoma of the larynx. He is status post concomitant chemoradiotherapy with treatment completed in June of 2016. CHIEF COMPLAINT Hoarseness of the voice, swelling and edema of the submental area as well as anterior neck. He also reports increased pain. HISTORY OF PRESENT ILLNESS Mr. Avila is a 61-year-old man. He has a history of heavy tobaccoism. He is homeless. He has no family who is sympathetic to him or willing to help. Mr. Avila was seen by me initially in April of 2016. He presented to this hospital with complaints of hoarseness of the voice. He underwent evaluation by ENT surgery. Flexible laryngoscopy indicated a large mass involving the larynx. He underwent imaging studies and eventually required an excisional biopsy of the vocal cords. Pathologic findings were consistent with invasive poorly differentiated squamous cell carcinoma. The patient at that time required a tracheostomy which was placed by general surgery team for upper airway protection. Because he had no way of following up in the clinic, the entirety of the six weeks of chemotherapy and radiation were delivered while he was in the hospital. He was then discharged and has since then been lost to followup. He was scheduled last week to see me in my office but was unable to come in. He comes in now with the above-noted complaints of increased swelling, pain and worsening hoarseness of the voice. He underwent a CT scan of the soft tissues of the neck and was noted to have subcutaneous edema involving the submental area. He was noted to have what appeared to be a soft tissue mass in the hypopharynx, glottic larynx and supraglottic/hypopharyngeal areas. Findings were consistent with post radiation changes. PAST MEDICAL HISTORY 1. 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 2. Tobaccoism. 3. Alcoholism. PAST SURGICAL HISTORY 1. Direct laryngoscopy with vocal cord biopsy 2. Tracheostomy placement. FAMILY HISTORY Parents are both . He denies any knowledge of oncologic diagnoses. SOCIAL HISTORY He is single. He is homeless. He has no children of his own. He as noted above has a history of heavy alcohol consumption and tobaccoism. He previously was a on site construction superintendent. ALLERGIES NO KNOWN DRUG ALLERGIES. MEDICATIONS Current inpatient 1. Zosyn 4.5 grams IV q.6 h. 2. Normal saline 1900 cc/hour. 3. Vancomycin 1 gram IV q. 12. 4. Tylenol 650 mg p.o. q. 6 h. 5. DuoNeb 1 ampule q.2 h as needed 6. Colace/Senna 1 tablet p.o. b.i.d. 7. Lactulose 30 mL p.o. as needed for severe constipation. 8. Ativan 1 mg IV as needed for agitation. 9. Morphine sulfate 2 mg IV q.4 h as needed for breakthrough pain. 10. Zofran 4 mg IV q.6 h 11. Oxycodone 10 mg p.o. q.4 h as needed for pain. 12. Pantoprazole 40 mg IV daily. REVIEW OF SYSTEMS Please see the HPI and chief complaint. He otherwise reports being able to swallow well. He tells me he is able to breathe well. He tells me his voice is more hoarse than it used to be. He reports no overt bleeding, denies chest pain, denies any neurosensory deficits. No other complaints reported. PHYSICAL EXAMINATION VITAL SIGNS: Temperature 98.2 degrees Fahrenheit, heart rate 75 beats a minutes, blood pressure is 116/70, O2 sats 97% on room air, respiratory rate 20. GENERAL APPEARANCE: Mr. Avila is a middle-aged male. He has somewhat of a disheveled appearance. He is in no acute distress. HEENT: Head atraumatic, normocephalic, conjunctivae are non-pale, sclerae are anicteric, EOMI, PERRLA, oral exam - he has some pharyngeal erythema. NECK: No palpable cervical or supraclavicular lymphadenopathy. He has post-radiation changes with edema in the submental area. Tracheostomy scar is noted to be fully healed. RESPIRATORY: Good air movement bilaterally with prolonged expiratory phase. CARDIOVASCULAR: Regular rate and rhythm, S1-S2. No obvious murmurs, rubs or gallops. ABDOMEN: Thin belly, soft and nontender, nondistended, no palpable organ enlargement. LOWER EXTREMITIES: No pretibial edema or calf tenderness. 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 MUSCULOSKELETAL: He has adequate muscle mass, tone and strength. LABORATORY FINDINGS Dated 10/23/2016: WBC count 4.7, hemoglobin 13.6 gm/dl, hematocrit 40%, platelet count 156, absolute neutrophil count is 2.7. Chemistries: Sodium 127, potassium 3.9, chloride 94, bicarbonate 26, BUN five, creatinine 0.52, EGFR 163, calcium 8.1. IMAGING STUDIES CT scan of the neck dated 10/22/2016: Significant soft tissue thickening along the anterior soft tissues of the neck at the level of the hypopharynx and larynx most characteristic of post-radiation cellulitis. Thickened and indurated glottic, supraglottic hypopharyngeal soft tissues characteristic of post-radiation changes. Significant compromise of the airway is noted. No evidence of malignant lymphadenopathy. ASSESSMENT Mr. Avila is a 61-year-old man with a history of tobaccoism and heavy alcohol consumption. In April of 2016, he presented to our facility with upper airway obstruction, hoarseness of voice and difficulty breathing. He underwent imaging studies and direct laryngoscopy and was noted to have a large mass involving the glottic larynx. He underwent biopsies of the mass and pathologic findings were consistent with invasive squamous cell carcinoma which was poorly differentiated. The patient underwent organ sparing treatment as first line therapy with concurrent chemoradiotherapy. He completed approximately six weeks of weekly cisplatin and radiation while in the hospital. He required tracheostomy prior to starting treatment for upper airway protection and upper airway obstruction. He was discharged from the hospital in June of 2016 and has not been seen by me ever since. He apparently is homeless and just did not have the means to come in to see me. Over the past few weeks, he has noted increased hoarseness of the voice. He has chronic pain and chronic swelling of the neck. The pain and swelling are likely related to post-radiation changes and post-treatment changes. He tells me he is able to breathe comfortably and is swallowing well also. RECOMMENDATIONS History of squamous cell carcinoma of the larynx: What Mr. Avila really needs is a thorough ENT evaluation. His symptoms are chronic. I suspect some of the reason he came in was due to frustration at not being able to establish outpatient follow-up and difficulty with transportation. This is understandable because of his social circumstances. I have looked at his CT imaging and examined him. None of his symptoms strike me as unusual for somebody who has undergone the treatment he has. Specifically, the post-radiation changes typically lead to edema of the dependent areas of the neck especially the submental area and it results in a chronic change to the neck with resultant firmness. I am unable to palpate any pathologic lymph nodes; there are no pathologically enlarged lymph nodes noted on CT imaging either. His CT scans do indicate significant upper airway compromise, however, he is breathing comfortably. I do not think at this point he requires a tracheostomy or emergent evaluation by ENT surgery. RECOMMENDATIONS I would recommend he be discharged from the hospital so he may follow up as an outpatient. Standard outpatient follow-up and surveillance for head and neck squamous cell carcinoma of the larynx consists of PET CT imaging post chemoradiotherapy. It also consists of direct visualization of the upper aerodigestive tract with biopsies of any suspicious residual lesions. If he continues to have laryngeal dysfunction and pain, he may require completion laryngectomy but this will have to be done at a tertiary referral center. MD FIFI Mcadams/ /7:12 PM /7:58 PM SILVANA
[2016-10-24] VITALS (7 sets, daily range): BP systolic 96–131; BP diastolic 64–77; PULSE 67–81; RESP 16–22; TEMP 97.4–98; O2SAT 92–95
[2016-10-24] MEDS: CHLORHEXIDINE GLUCONATE 2 % 1 PACK (2 CLOTHS) TOP SCH (03:43)
[2016-10-24] MEDS: PIPERACIL-TAZO 4.5 GM PREMIX 100 ML IV SCH ×4 (04:23→23:58)
[2016-10-24] MEDS ORDERED: PHARMACY ORDERED LAB ONE (04:45)
[2016-10-24] MEDS: VANCOMYCIN 1,000 MG/NS 250 ML IV SCH ×2 (05:26)
[2016-10-24] MEDS: DOCUSATE SODIUM 50 MG/SENNA 8.6 MG TAB PO SCH ×2 (08:05→20:52)
[2016-10-24] MEDS: SODIUM CHLOR 0.9% 1000 ML INJ 1,000 ML IV SCH ×2 (08:06→16:46)
[2016-10-24] MEDS: PANTOPRAZOLE SODIUM 40 MG VIAL IV SCH (08:06)
[2016-10-24 10:23] LABS: BICARBONATE 28.6 MEQ/L (21.0-32.0)
--- NOTE | 2016-10-24 11:23 | HHI.PR ---
Subjective Remarks resting comfortably with no distress. says that he has some dizzy spells. no respiratory distress or difficulty swallowing. Objective Vitals Vital Signs Date Time Temp Pulse Resp B/P Pulse Ox O2 Delivery O2 Flow Rate FiO2 10/24/16 10:29 Room Air 21 10/24/16 08:00 97.9 79 22 116/64 93 10/24/16 00:00 97.9 80 20 96/69 93 10/23/16 20:00 98.2 81 20 105/75 95 10/23/16 16:00 98.2 75 20 116/70 97 I/O 10/23/16 10/23/16 10/23/16 10/24/16 10/24/16 10/24/16 07:00 15:00 23:00 07:00 15:00 23:00 Intake Total 535 ml 720 ml 360 ml 1160 ml Output Total 500 ml 325 ml 1220 ml Balance 35 ml 720 ml 35 ml -60 ml Intake Oral 240 ml 720 ml 360 ml 360 ml IV Total 295 ml 800 ml Output Urine Total 500 ml 325 ml 1220 ml # Voids 2 # Bowel Movements 0 2 Result Diagram: 10/23/16 0529 10/24/16 0811 Imaging Last Impressions Neck CT 10/22/16 0000 Signed Impressions: Service Date/Time: Saturday, October 22, 2016 14:21 - CONCLUSION: Significant soft tissues thickening along the anterior soft tissues of the neck at the level of the hypopharynx and larynx most characteristic of post radiation cellulitis. Thickened and indurated glottic, supraglottic and hypopharyngeal soft tissues characteristic of post radiation change. Significant compromise of the airway is noted. No evidence of malignant lymphadenopathy. Dakotah Recinos MD Chest X-Ray 10/22/16 0000 Signed Impressions: Service Date/Time: Saturday, October 22, 2016 13:17 - CONCLUSION: No acute disease. Puma Simpson MD FACR Objective Remarks GENERAL: This is a well-nourished, well-developed patient, in no apparent distress. CARDIOVASCULAR: Regular rate and regular rhythm without murmurs, gallops, or rubs. RESPIRATORY: Clear to auscultation. Breath sounds equal bilaterally. No wheezes , rales, or rhonchi. GASTROINTESTINAL: Abdomen soft, non-tender, nondistended. Normal, active bowel sounds MUSCULOSKELETAL: Extremities without clubbing, cyanosis, or edema. NEURO: Alert & Oriented x4 to person, place, time, situation. Moves all ext x4 Medications and IVs Current Medications Sodium Chloride (NS 500 ml Inj) 500 ml @ 500 mls/hr BOLUS ONCE IV Last administered on 10/22/16 13:42; Start 10/22/16 at 13:15; Stop 10/22/16 at 14:14; Status DC Iohexol 65 ml 65 ml STK-MED ONCE IV Last administered on 10/22/16 14:32; Start 10/22/16 at 14:32; Stop 10/22/16 at 14:33; Status DC Piperacillin Sod/ Tazobactam Sod 100 ml @ 200 mls/hr ONCE ONCE IV Last administered on 10/22/16 15:48; Start 10/22/16 at 15:30; Stop 10/22/16 at 15:59; Status DC Vancomycin HCl 1000 mg/Sodium Chloride 250 ml @ 250 mls/hr ONCE ONCE IV Last administered on 10/22/16 16:40; Start 10/22/16 at 15:30; Stop 10/22/16 at 16:29; Status DC Sodium Chloride (NS 1000 ml Inj) 1,000 ml @ 100 mls/hr Q10H IV Last administered on 10/24/16 08:06; Start 10/22/16 at 17:12 Acetaminophen (Tylenol) 650 mg Q6H PRN PO FEVER >101F; Start 10/22/16 at 17:15 Morphine Sulfate (Morphine Inj) 2 mg Q2H PRN IV PAIN SCALE 6 TO 10; Start at 17:15; Stop 10/23/16 at 12:24; Status DC Pantoprazole Sodium (Protonix Inj) 40 mg DAILY IV Last administered on 08:06; Start 10/23/16 at 09:00 Lorazepam (Ativan Inj) 1 mg Q1H PRN IV Agitation/Sedation; Start 10/22/16 at 17: 15 Ondansetron HCl (Zofran Inj) 4 mg Q6H PRN IV NAUSEA OR VOMITING; Start 10/22/16 at 17:15 Albuterol/ Ipratropium (Duoneb Neb) 1 ampule Q2HR NEB PRN INH WHEEZING; Start 10/22/16 at 17:15 Miscellaneous Information 1 Q361D XX ; Start 10/22/16 at 17:15 Chlorhexidine Gluconate (Chlorhexidine 2% Cloth) 3 pack Taper DAILY@04 TOP Last administered on 10/24/16t 03:43; Start 10/23/16 at 04:00; Stop 10/19/17 at 03:59 Chlorhexidine Gluconate (Chlorhexidine 2% Cloth) 3 pack UNSCH PRN TOP HYGIENIC CARE; Start 10/22/16 at 17:15 Senna/Docusate Sodium (Adenike-Colace) 1 tab BID PO Last administered on t 08:05; Start 10/22/16 at 21:00 Magnesium Hydroxide (Milk Of Magnesia Liq) 30 ml Q12H PRN PO MILD - MODERATE CONSTIPATION; Start 10/22/16 at 17:15 Sennosides (Senokot) 17.2 mg Q12H PRN PO MODERATE - SEVERE CONSTIPATION; Start 10/22/16 at 17:15 Bisacodyl (Dulcolax Supp) 10 mg DAILY PRN RECTAL SEVERE CONSITIPATION; Start at 17:15 Lactulose 30 ml 30 ml DAILY PRN PO SEVERE CONSITIPATION; Start 10/22/16 at 17:15 Potassium Chloride 100 ml @ 50 mls/hr Q2H PRN IV For Potassium 2.8 - 3.2 mEq/L ; Start 10/22/16 at 17:15; Stop 10/23/16 at 10:32; Status DC Potassium Chloride (KCl 20 Meq Premix Inj) 100 ml @ 50 mls/hr Q2H PRN IV For Potassium 2.8 - 3.2 mEq/L; Start 10/22/16 at 17:15; Stop 10/23/16 at 10:32; Status DC Potassium Bicarb/ Potassium Chloride 50 meq 50 meq UNSCH PRN PO For Potassium 3.3 - 3.5 mEq/L; Start 10/22/16 at 17:15; Stop 10/23/16 at 10:32; Status DC Potassium Chloride 100 ml @ 25 mls/hr UNSCH PRN IV For Potassium 3.3 - 3.5 mEq /L; Start 10/22/16 at 17:15; Stop 10/23/16 at 10:32; Status DC Potassium Chloride 100 ml @ 50 mls/hr Q2H PRN IV For Potassium 3.3 - 3.5 mEq/L ; Start 10/22/16 at 17:15; Stop 10/23/16 at 10:32; Status DC Magnesium Sulfate/ Sodium Chloride (Magnesium Sulfate Inj/NS Inj) 100 ml @ 50 mls/hr UNSCH PRN IV For Magnesium 0.9 - 1.1 mg/dL; Start 10/22/16 at 17:15; Stop 10/23/16 at 10:32; Status DC Magnesium Oxide 800 mg 800 mg UNSCH PRN PO For Magnesium 1.2 - 1.6 mg/dL; Start 10/22/16 at 17:15; Stop 10/23/16 at 10:32; Status DC Magnesium Sulfate/ Sodium Chloride (Magnesium Sulfate Inj/NS Inj) 100 ml @ 50 mls/hr UNSCH PRN IV For Magnesium 1.2 - 1.6 mg/dL; Start 10/22/16 at 17:15; Stop 10/23/16 at 10:32; Status DC Potassium Phosphate 2000 mg 2,000 mg Q4H PRN PO For Phosphorus < 2.5 mg/dL; Start 10/22/16 at 17:15 Sodium Phosphate/ Sodium Chloride (Sodium Phosphate Inj/NS 250 ml Inj) 250 ml @ 42 mls/hr UNSCH PRN IV For Phosphorus < 2.5 mg/dL; Start 10/22/16 at 17:15; Stop 10/23/16 at 10:32; Status DC Potassium Phosphate 2000 mg 2,000 mg UNSCH PRN PO/TUBE SEE LABEL COMMENTS; Start 10/22/16 at 17:15 Potassium Phosphate 30 mmol/ Sodium Chloride 260 ml @ 42 mls/hr UNSCH PRN IV SEE LABEL COMMENTS; Start 10/22/16 at 17:15; Stop 10/23/16 at 10:32; Status DC Piperacillin Sod/ Tazobactam Sod 100 ml @ 200 mls/hr Q6H IV Last administered on 10/24/16t 04:23; Start 10/22/16 at 18:00 Pharmacy Profile Note 0 ml @ 0 mls/hr UNSCH OTHER ; Start 10/22/16 at 17:15 Vancomycin HCl/ Sodium Chloride (Vancomycin Inj/ NS 250 ml Inj) 250 ml @ 250 mls/hr Q12H IV Last administered on 10/24/16 05:26; Start 10/23/16 at 05:00 Miscellaneous Information SPECIFIC LAB TO BE ... 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 (2) hyponatremia; improved. (3) COPD (chronic obstructive pulmonary disease)- neb treatment as needed. consult PT. DVT prophylaxis with SCD's. Discharge Planning dc home tomorrow if stable- pending PT evaluation. Jeanne Woodruff MD Oct 24, 2016 11:22
[2016-10-24] MEDS: VANCOMYCIN INJ 1,250 MG in SODIUM CHLOR 0.9% 250 ML INJ 250 ML IV SCH (17:55)
[2016-10-25] VITALS: BP 117/71; PULSE 72; RESP 20; TEMP 97.6; O2SAT 96
[2016-10-25 04:00] VITALS: BP 115/82; PULSE 76; RESP 20; TEMP 97.7; O2SAT 98
[2016-10-25] MEDS: CHLORHEXIDINE GLUCONATE 2 % 1 PACK (2 CLOTHS) TOP SCH (04:21)
[2016-10-25] MEDS: SODIUM CHLOR 0.9% 1000 ML INJ 1,000 ML IV SCH ×2 (05:12→07:56)
[2016-10-25] MEDS: PIPERACIL-TAZO 4.5 GM PREMIX 100 ML IV SCH (05:41)
[2016-10-25] MEDS: VANCOMYCIN INJ 1,250 MG in SODIUM CHLOR 0.9% 250 ML INJ 250 ML IV SCH (06:19)
[2016-10-25 07:27] LABS: BICARBONATE 28.4 MEQ/L (21.0-32.0); POTASSIUM 4.4 MEQ/L (3.5-5.1)
[2016-10-25] MEDS: PANTOPRAZOLE SODIUM 40 MG VIAL IV SCH (07:56)
[2016-10-25] MEDS: DOCUSATE SODIUM 50 MG/SENNA 8.6 MG TAB PO SCH (07:56)
[2016-10-25 08:00] VITALS: BP 91/65; PULSE 77; RESP 16; TEMP 97.6; O2SAT 92
[2016-10-25] MEDS ORDERED: NORC5TAB PO (08:48)
--- NOTE | 2016-10-25 08:48 | HHI.PR ---
Subjective Remarks resting comfortably with no distress. no new complaints. Objective Vitals Vital Signs Date Time Temp Pulse Resp B/P Pulse Ox O2 Delivery O2 Flow Rate FiO2 10/25/16 08:12 Room Air 21 10/25/16 04:00 97.7 76 20 115/82 98 10/25/16 00:00 97.6 72 20 117/71 96 10/25/16 00:00 Room Air 10/24/16 20:00 67 10/24/16 20:00 Room Air 10/24/16 20:00 97.4 73 16 112/69 95 10/24/16 17:42 94 21 10/24/16 16:00 98.0 78 22 131/76 95 10/24/16 15:06 94 21 10/24/16 12:00 97.6 81 20 107/77 92 10/24/16 10:29 Room Air 21 I/O 10/24/16 10/24/16 10/24/16 10/25/16 10/25/16 10/25/16 07:00 15:00 23:00 07:00 15:00 23:00 Intake Total 1160 ml 600 ml 480 ml 960 ml Output Total 1220 ml 675 ml 500 ml 450 ml Balance -60 ml -75 ml -20 ml 510 ml Intake Oral 360 ml 600 ml 480 ml 960 ml IV Total 800 ml Output Urine Total 1220 ml 675 ml 500 ml 450 ml # Bowel Movements 2 1 1 2 Result Diagram: 10/23/16 0529 10/25/16 0504 Imaging Last Impressions Neck CT 10/22/16 0000 Signed Impressions: Service Date/Time: Saturday, October 22, 2016 14:21 - CONCLUSION: Significant soft tissues thickening along the anterior soft tissues of the neck at the level of the hypopharynx and larynx most characteristic of post radiation cellulitis. Thickened and indurated glottic, supraglottic and hypopharyngeal soft tissues characteristic of post radiation change. Significant compromise of the airway is noted. No evidence of malignant lymphadenopathy. Dakotah Recinos MD Chest X-Ray 10/22/16 0000 Signed Impressions: Service Date/Time: Saturday, October 22, 2016 13:17 - CONCLUSION: No acute disease. Puma Simpson MD FACR Objective Remarks GENERAL: This is a well-nourished, well-developed patient, in no apparent distress. CARDIOVASCULAR: Regular rate and regular rhythm without murmurs, gallops, or rubs. RESPIRATORY: Clear to auscultation. Breath sounds equal bilaterally. No wheezes , rales, or rhonchi. GASTROINTESTINAL: Abdomen soft, non-tender, nondistended. Normal, active bowel sounds MUSCULOSKELETAL: Extremities without clubbing, cyanosis, or edema. NEURO: Alert & Oriented x4 to person, place, time, situation. Moves all ext x4 Procedures none Medications and IVs Current Medications Sodium Chloride (NS 500 ml Inj) 500 ml @ 500 mls/hr BOLUS ONCE IV Last administered on 10/22/16 13:42; Start 10/22/16 at 13:15; Stop 10/22/16 at 14:14; Status DC Iohexol 65 ml 65 ml STK-MED ONCE IV Last administered on 10/22/16 14:32; Start 10/22/16 at 14:32; Stop 10/22/16 at 14:33; Status DC Piperacillin Sod/ Tazobactam Sod 100 ml @ 200 mls/hr ONCE ONCE IV Last administered on 10/22/16 15:48; Start 10/22/16 at 15:30; Stop 10/22/16 at 15:59; Status DC Vancomycin HCl 1000 mg/Sodium Chloride 250 ml @ 250 mls/hr ONCE ONCE IV Last administered on 10/22/16 16:40; Start 10/22/16 at 15:30; Stop 10/22/16 at 16:29; Status DC Sodium Chloride (NS 1000 ml Inj) 1,000 ml @ 100 mls/hr Q10H IV Last administered on 10/25/16 07:56; Start 10/22/16 at 17:12 Acetaminophen (Tylenol) 650 mg Q6H PRN PO FEVER >101F; Start 10/22/16 at 17:15 Morphine Sulfate (Morphine Inj) 2 mg Q2H PRN IV PAIN SCALE 6 TO 10; Start at 17:15; Stop 10/23/16 at 12:24; Status DC Pantoprazole Sodium (Protonix Inj) 40 mg DAILY IV Last administered on 07:56; Start 10/23/16 at 09:00 Lorazepam (Ativan Inj) 1 mg Q1H PRN IV Agitation/Sedation; Start 10/22/16 at 17: 15 Ondansetron HCl (Zofran Inj) 4 mg Q6H PRN IV NAUSEA OR VOMITING; Start 10/22/16 at 17:15 Albuterol/ Ipratropium (Duoneb Neb) 1 ampule Q2HR NEB PRN INH WHEEZING; Start 10/22/16 at 17:15 Miscellaneous Information 1 Q361D XX ; Start 10/22/16 at 17:15 Chlorhexidine Gluconate (Chlorhexidine 2% Cloth) 3 pack Taper DAILY@04 TOP Last administered on 10/24/16t 03:43; Start 10/23/16 at 04:00; Stop 10/19/17 at 03:59 Chlorhexidine Gluconate (Chlorhexidine 2% Cloth) 3 pack UNSCH PRN TOP HYGIENIC CARE; Start 10/22/16 at 17:15 Senna/Docusate Sodium (Adenike-Colace) 1 tab BID PO Last administered on t 07:56; Start 10/22/16 at 21:00 Magnesium Hydroxide (Milk Of Magnesia Liq) 30 ml Q12H PRN PO MILD - MODERATE CONSTIPATION; Start 10/22/16 at 17:15 Sennosides (Senokot) 17.2 mg Q12H PRN PO MODERATE - SEVERE CONSTIPATION; Start 10/22/16 at 17:15 Bisacodyl (Dulcolax Supp) 10 mg DAILY PRN RECTAL SEVERE CONSITIPATION; Start at 17:15 Lactulose 30 ml 30 ml DAILY PRN PO SEVERE CONSITIPATION; Start 10/22/16 at 17:15 Potassium Chloride 100 ml @ 50 mls/hr Q2H PRN IV For Potassium 2.8 - 3.2 mEq/L ; Start 10/22/16 at 17:15; Stop 10/23/16 at 10:32; Status DC Potassium Chloride (KCl 20 Meq Premix Inj) 100 ml @ 50 mls/hr Q2H PRN IV For Potassium 2.8 - 3.2 mEq/L; Start 10/22/16 at 17:15; Stop 10/23/16 at 10:32; Status DC Potassium Bicarb/ Potassium Chloride 50 meq 50 meq UNSCH PRN PO For Potassium 3.3 - 3.5 mEq/L; Start 10/22/16 at 17:15; Stop 10/23/16 at 10:32; Status DC Potassium Chloride 100 ml @ 25 mls/hr UNSCH PRN IV For Potassium 3.3 - 3.5 mEq /L; Start 10/22/16 at 17:15; Stop 10/23/16 at 10:32; Status DC Potassium Chloride 100 ml @ 50 mls/hr Q2H PRN IV For Potassium 3.3 - 3.5 mEq/L ; Start 10/22/16 at 17:15; Stop 10/23/16 at 10:32; Status DC Magnesium Sulfate/ Sodium Chloride (Magnesium Sulfate Inj/NS Inj) 100 ml @ 50 mls/hr UNSCH PRN IV For Magnesium 0.9 - 1.1 mg/dL; Start 10/22/16 at 17:15; Stop 10/23/16 at 10:32; Status DC Magnesium Oxide 800 mg 800 mg UNSCH PRN PO For Magnesium 1.2 - 1.6 mg/dL; Start 10/22/16 at 17:15; Stop 10/23/16 at 10:32; Status DC Magnesium Sulfate/ Sodium Chloride (Magnesium Sulfate Inj/NS Inj) 100 ml @ 50 mls/hr UNSCH PRN IV For Magnesium 1.2 - 1.6 mg/dL; Start 10/22/16 at 17:15; Stop 10/23/16 at 10:32; Status DC Potassium Phosphate 2000 mg 2,000 mg Q4H PRN PO For Phosphorus < 2.5 mg/dL; Start 10/22/16 at 17:15 Sodium Phosphate/ Sodium Chloride (Sodium Phosphate Inj/NS 250 ml Inj) 250 ml @ 42 mls/hr UNSCH PRN IV For Phosphorus < 2.5 mg/dL; Start 10/22/16 at 17:15; Stop 10/23/16 at 10:32; Status DC Potassium Phosphate 2000 mg 2,000 mg UNSCH PRN PO/TUBE SEE LABEL COMMENTS; Start 10/22/16 at 17:15 Potassium Phosphate 30 mmol/ Sodium Chloride 260 ml @ 42 mls/hr UNSCH PRN IV SEE LABEL COMMENTS; Start 10/22/16 at 17:15; Stop 10/23/16 at 10:32; Status DC Piperacillin Sod/ Tazobactam Sod 100 ml @ 200 mls/hr Q6H IV Last administered on 10/25/16 05:41; Start 10/22/16 at 18:00 Pharmacy Profile Note 0 ml @ 0 mls/hr UNSCH OTHER ; Start 10/22/16 at 17:15 Vancomycin HCl/ Sodium Chloride (Vancomycin Inj/ NS 250 ml Inj) 250 ml @ 250 mls/hr Q12H IV Last administered on 10/24/16 05:26; Start 10/23/16 at 05:00; Stop 10/24/16 at 12:30; Status DC Miscellaneous Information SPECIFIC LAB TO BE BK... ONCE ONCE .XX ; Start 10/24 at 04:45; Stop 10/24/16 at 04:46; Status DC Phenol (Chloraseptic Stone) 2 spray Q2H PRN OROPHARYNG sore throat/throat pain ; Start 10/22/16 at 22:00 Oxycodone HCl (Roxicodone) 5 mg Q4H PRN PO pain 1-5 Last administered on 07:52; Start 10/22/16 at 22:00 Morphine Sulfate (Morphine Inj) 2 mg Q4HR PRN IV BREAKTHROUGH PAIN; Start 10/23 at 16:00 Oxycodone HCl 10 mg 10 mg Q4H PRN PO PAIN 6-10 Last administered on 10/25/16 05:43; Start 10/23/16 at 12:30 Vancomycin HCl/ Sodium Chloride (Vancomycin Inj/ NS 250 ml Inj) 262.5 ml @ 250 mls/hr Q12H IV Last administered on 10/25/16 06:19; Start 10/24/16 at 17:00 Miscellaneous Information SPECIFIC LAB TO BE BK... 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 seen by (2) hyponatremia; improved. (3) COPD (chronic obstructive pulmonary disease)- neb treatment as needed. DVT prophylaxis with SCD's. Discharge Planning dc home today. see med list. f/u;pcp and oncology. d/w the patient. Jeanne Woodruff MD Oct 25, 2016 08:48
--- NOTE | 2016-10-25 08:49 | HHI.DCPOC ---
Discharge Care Plan Diagnosis: (1) Supraglottic airway obstruction Your Health Problems Are: Shortness of Breath Goals to Promote Your Health * To prevent worsening of your condition and complications * To maintain your health at the optimal level Directions to Meet Your Goals Take your medications as prescribed Follow your dietary instruction Follow activity as directed Keep your appointments as scheduled Take your immunizations and boosters as scheduled If your symptoms worsen call your PCP, if no PCP go to Urgent Care Center or Emergency Room Smoking is Dangerous to Your Health. Avoid second hand smoke Call the 24-hour hour crisis hotline for domestic abuse at Jeanne Woodruff MD Oct 25, 2016 08:49
--- NOTE | 2016-10-25 08:50 | HHI.DS ---
Discharge Summary Admission Date Oct 22, 2016 at 15:28 Discharge Date: Oct 25, 2016 Admitting Diagnosis postradiation cellulitis, postradiation neck changes, airway comprom (1) Supraglottic airway obstruction ICD Code: J38.6 Diagnosis: Principal Procedures none Brief History - From Admission HPI Service Critical Care Medicine Primary Care Physician No Primary Care Physician Admission Diagnosis Cellulitis, swelling neck. Diagnosis: (1) Supraglottic airway obstruction Diagnosis: Principal (2) Cellulitis, neck Diagnosis: Principal (3) Pharyngeal carcinoma, squamous cell Diagnosis: Secondary (4) COPD (chronic obstructive pulmonary disease) Diagnosis: Secondary Chief Complaint: Neck swelling and SOB. History of Present Illness 61 y/o man with carcinoma of pharynx diagnosed in April 2016, received trach and PEG - both subsequently removed. Underwent chemo and XRT at [facility], Dr. Lofton. Now presents with neck edema and cellulitis, and noticeable upper airway partial obstruction. Will receive antibiotics at [facility] and transfer to [facility] for airway precautions/possibly replace trach. CBC/BMP: 10/23/16 0529 10/25/16 0504 Significant Findings Laboratory Tests Test 10/22/16 10/23/16 10/24/16 10/25/16 13:36 05:29 08:11 05:04 Red Blood Count 4.32 MIL/MM3 4.05 MIL/MM3 (4.50-5.90) (4.50-5.90) Mean Platelet Volume 6.7 FL 6.8 FL (7.0-11.0) (7.0-11.0) Monocytes (%) (Auto) 9.4 % (0.0-8.0) 9.7 % (0.0-8.0) Eosinophils (%) (Auto) 12.8 % 20.7 % (0.0-4.0) (0.0-4.0) Lymphocytes # (Auto) 0.7 TH/MM3 0.6 TH/MM3 (1.0-4.8) (1.0-4.8) Eosinophils # (Auto) 0.7 TH/MM3 1.0 TH/MM3 (0-0.4) (0-0.4) Sodium Level 129 MEQ/L 127 MEQ/L 129 MEQ/L 134 MEQ/L (136-145) (136-145) (136-145) (136-145) Chloride Level 95 MEQ/L 94 MEQ/L 95 MEQ/L 97 MEQ/L (98-107) (98-107) (98-107) (98-107) Blood Urea Nitrogen 5 MG/DL (7-18) 4 MG/DL (7-18) 6 MG/DL (7-18) Creatinine 0.52 MG/DL 0.57 MG/DL (0.60-1.30) (0.60-1.30) Random Glucose 64 MG/DL 68 MG/DL (74-106) (74-106) Calcium Level 8.1 MG/DL (8.5-10.1) Imaging Last Impressions Neck CT 10/22/16 0000 Signed Impressions: Service Date/Time: Saturday, October 22, 2016 14:21 - CONCLUSION: Significant soft tissues thickening along the anterior soft tissues of the neck at the level of the hypopharynx and larynx most characteristic of post radiation cellulitis. Thickened and indurated glottic, supraglottic and hypopharyngeal soft tissues characteristic of post radiation change. Significant compromise of the airway is noted. No evidence of malignant lymphadenopathy. Dakotah Recinos MD Chest X-Ray 10/22/16 0000 Signed Impressions: Service Date/Time: Saturday, October 22, 2016 13:17 - CONCLUSION: No acute disease. Puma Simpson MD FACR PE at Discharge GENERAL: This is a well-nourished, well-developed patient, in no apparent distress. CARDIOVASCULAR: Regular rate and regular rhythm without murmurs, gallops, or rubs. RESPIRATORY: Clear to auscultation. Breath sounds equal bilaterally. No wheezes , rales, or rhonchi. GASTROINTESTINAL: Abdomen soft, non-tender, nondistended. Normal, active bowel sounds MUSCULOSKELETAL: Extremities without clubbing, cyanosis, or edema. NEURO: Alert & Oriented x4 to person, place, time, situation. 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 seen by ST. (2) hyponatremia; improved. (3) COPD (chronic obstructive pulmonary disease)- neb treatment as needed. DVT prophylaxis with SCD's. Pt Condition on Discharge: Fair Discharge Disposition: Discharge Home Discharge Time: <= 30 minutes Discharge Instructions DIET: Follow Instructions for: Heart Healthy Diet Speech Therapy-Diet Recommends: Regular Activities you can perform: Regular-No Restrictions Follow up Referrals: Oncology PCP Follow-up New Medications: Hydrocodone-Acetaminophen ([place]) 5-325 mg Tab 1 TAB PO Q6H PRN PAIN #12 Ref 0 TAB eJanne Woodruff MD Oct 25, 2016 08:50
[2016-10-26] MEDS ORDERED: PHARMACY ORDERED LAB ONE (04:45)
== END 2016-10-25 10:10 | disposition home or self-care (01) | DRG 603 ==
LOC: PHED 12:28 → PHEDA 15:28 → N03B 18:54 → N04A 10-23 10:20
PROVIDERS: ADMIT Internal Medicine; ATTEND Internal Medicine
DX: L03.221 Cellulitis of neck (principal); E87.1 Hypo-osmolality and hyponatremia; J38.6 Stenosis of larynx; J44.9 Chronic obstructive pulmonary disease, unspecified; F17.210 Nicotine dependence, cigarettes, uncomplicated; G89.29 Other chronic pain; Z59.0 Homelessness; Z92.21 Personal history of antineoplastic chemotherapy; Z87.442 Personal history of urinary calculi; Z85.21 Personal history of malignant neoplasm of larynx; Y84.2 Radiological procedure and radiotherapy as the cause of abnormal reaction of the patient, or of later complication, without mention of misadventure at the time of the procedure
CPT/HCPCS: 70491; 71010; 80048; 80202; 85025; 87641; 96360; C9113; J2543; J3370; J7030; J7040; J7050; Q9967

== ENCOUNTER → 2017-05-18 | Outpatient (CLI) | payer MEDICAID ==
[~2017-05-18] MED LIST changes: -DOCU1CAP39 PO; +IOHEXOL 350 MG/ML 10 ML VIAL (for RAD DIAG) IVCONTRAST ONE; -MICO1POW14 TOPICAL; -NICO7DIS2 TD; +NORC5TAB PO; -OXYC1TAB63 PO; -PANT40TA3 PO
--- NOTE | 2017-05-18 16:03 | RADRPT ---
EXAM DATE/TIME: 05/18/2017 14:27 [facility] COMPARISON: CT SOFT TISSUE NECK W CONTRAST, October 22, 2016, 14:21. INDICATIONS : Restaging history of vocal cord tumor,post chemo and radiation IV CONTRAST: 66 cc Omnipaque 350 (iohexol) IV RADIATION DOSE: 14.62 CTDIvol (mGy) MEDICAL HISTORY : Vocal cord tumor SURGICAL HISTORY : None. ENCOUNTER: Initial ACUITY: 1 day PAIN SCALE: 0/10 LOCATION: neck TECHNIQUE: Volumetric scanning of the neck was performed. Using automated exposure control and adjustment of th e mA and/or kV according to patient size, radiation dose was kept as low as reasonably achievable to obtain optimal diagnostic quality images. DICOM format image data is available electronically for r eview and comparison. FINDINGS: There is extensive post therapy change with diffuse mucosal edema involving the supraglottic larynx, the true cords as well as the subglottic region. No discrete deeply infiltrate lesion is identified t umair when the background of post therapy change PET/CT would be more sensitive for evaluation of thi s. No abnormally enlarged lymph nodes are identified. Emphysematous changes are present in both upper lobes. CONCLUSION: 1. Extensive edema throughout the neck without evidence of metastatic adenopathy. 2. PET/CT scan is recommended to further evaluation if clinically indicated. Dioni Carbajal MD on May 18, 2017 at 15:58 Board Certified Radiologist. This report was verified electronically.
== END ==
LOC: HRAD 13:29
PROVIDERS: ATTEND Specialist
DX: C32.0 Malignant neoplasm of glottis (principal)
CPT/HCPCS: 70491; Q9967

== ENCOUNTER 2017-05-31 16:08 | Emergency (ER) | payer MEDICAID ==
[~2017-05-31] VITALS: Ht 182.9 cm; Wt 59.3 kg
[~2017-05-31 16:08] MED LIST changes: -IOHEXOL 350 MG/ML 10 ML VIAL (for RAD DIAG) IVCONTRAST ONE
[2017-05-31 16:20] VITALS: BP 122/65; PULSE 70; RESP 18; TEMP 97.3; O2SAT 98
[2017-05-31] MEDS ORDERED: LIDOCAINE HCL 1% 30 ML VIAL INFIL ONE (16:45)
[2017-05-31] MEDS ORDERED: LIDOCAINE HCL 1% PF 30 ML VIAL ONE (16:47)
[2017-05-31] MEDS: RESP: ALBUTEROL 2.5 MG/IPRATROPIUM 0.5 MG NEB (SCH) INH (17:02)
[2017-05-31] MEDS ORDERED: ADVA115A INH (17:11)
[2017-05-31] MEDS ORDERED: VENTAER INH (17:11)
--- NOTE | 2017-05-31 17:13 | PD ---
HPI . Dyspnea Chief Complaint: Respiratory Symptoms Time Seen by Provider: 16:40 Travel History International Travel<30 days: No Contact w/Intl Traveler<30days: No Traveled to known affect area: No History of Present Illness HPI This patient presents with 2 complaints. His first complaint is shortness of breath. He reports wheezing. He states that this is a chronic problem and is unable to tell me exactly when it started. It has not gotten acutely worse. There are no modifying factors. He states that he feels does not have a primary care provider who can give him medications. He has a history of COPD and pharyngeal cancer. Symptoms are mild. His second complaint is an abscess on his left index finger. This been there for 2 years. He states that he got something into his finger while working 2 years ago. He states that he was able to remove the foreign body but has had chronic, waxing and waning swelling since that time. He states that it will occasionally drain purulent material. He is asking that I mulu it. PFSH Past Medical History Hx Anticoagulant Therapy: No Cancer: Yes (throat cancer dx apr 2016) Cardiovascular Problems: No Chemotherapy: Yes (06/2016) COPD: Yes Diabetes: No Diminished Hearing: No Endocrine: No Gastrointestinal Disorders: No Immune Disorder: No Implanted Vascular Access Dvce: No Kidney Stones: Yes (1 passed without intervention over 20 years ago) Musculoskeletal: No Neurologic: No Psychiatric: No Reproductive: No Respiratory: Yes (COPD) Radiation Therapy: Yes (RT tx july 2016) Tetanus Vaccination: Unknown Past Surgical History Oral Surgery: Yes (tonsillectomy) Tonsillectomy: Yes Other Surgery: Yes Social History Alcohol Use: Yes (occas. mix drinks) Tobacco Use: Yes (1/2 ppd) Substance Use: No Allergies-Medications (Allergen,Severity, Reaction): Coded Allergies: No Known Allergies (Unverified Allergy, Unknown, 05/31/17) Reported Meds & Prescriptions Reported Meds & Active Scripts Active Advair Hfa 12 GM Inh (Fluticasone-Salmeterol 12 GM Inh) 115-21 Mcg/Act Aer 2 Puff INH BID Ventolin Hfa 18 GM Inh (Albuterol Sulfate) 90 Mcg/Act Aer 2 Puff INH Q4-6H PRN Review of Systems Except as stated in HPI: all other systems reviewed are Neg General / Constitutional: No: Fever, Chills Respiratory: Positive: Shortness of Breath, Wheezing Skin: Positive Lesions Physical Exam Narrative GENERAL: Patient is awake and alert. He is status post previous pharyngeal cancer and tracheostomy. He has a very scratchy voice. He is chronically ill- appearing. SKIN: warm/dry. He has an area of induration and fluctuance on the palmar aspect of his left index finger, middle phalanx. The overlying skin is not red or hot. HEAD: Normocephalic. Atraumatic. EYES: Pupils equal and round. No scleral icterus. No injection or drainage. ENT: No nasal bleeding or discharge. Mucous membranes pink and moist. NECK: Trachea midline. Full range of motion without pain.. CARDIOVASCULAR: Regular rate and rhythm. Heart sounds are normal. RESPIRATORY: No accessory muscle use. Speaking in complete sentences without difficulty breathing. He has diffuse, coarse expiratory wheezing. MUSCULOSKELETAL: No obvious deformities. NEUROLOGICAL: Awake and alert. No obvious cranial nerve deficits. Motor grossly within normal limits. Normal speech. PSYCHIATRIC: Appropriate mood and affect; insight and judgment normal. Data Data Last Documented VS Vital Signs Date Time Temp Pulse Resp B/P (MAP) Pulse Ox O2 Delivery O2 Flow Rate FiO2 05/31/17 17:49 68 18 93 05/31/17 16:27 Room Air 05/31/17 16:20 97.3 122/65 (84) Orders Orders Albuterol-Ipratropium Neb (Duoneb Neb) (05/31/17 16:45) Lidocaine 1% Inj (Xylocaine 1% Inj) (05/31/17 16:45) Lidocaine Pf 1% Inj (Xylocaine-Mpf 1% In (05/31/17 16:47) MDM Medical Decision Making Medical Screen Exam Complete: Yes Emergency Medical Condition: Yes Medical Record Reviewed: Yes (patient was diagnosed with pharyngeal cancer about a year ago. He was treated with chemotherapy and radiation therapy. He required a tracheostomy and PEG tube for a while. Those have since been removed.) Differential Diagnosis Differential diagnosis of dyspnea includes but is not limited to congestive heart failure, pneumonia, wheezing, pneumothorax, pulmonary embolism My differential diagnosis closed but is not limited to abscess, cyst, lipoma Narrative Course This patient presents with 2 problems. The first is that he has COPD and does not have a primary care provider. He presents complaining with chronic wheezing. He does not have fever or sputum production. He is currently receiving nebulizers. His second complaint is a chronic swelling of the left index finger. He asked that I mulu it. It has been there for 2 years. The patient reports that he feels much better following the nebulizer treatments. I will discharge him to home with prescriptions for albuterol and Advair. Procedures Procedure Narrative INCISION AND DRAINAGE OF ABSCESS: The area was prepped with Betadine. A subcutaneous wheal of 1% Xylocaine plain with a total number 3 mL was used to anesthetize the area properly. A number 11 scalpel was used to make a 1-cm incision across the area of the abscess. There was coagulated purulent material in the wound. There was also a cyst which was dissected. Sterile dressing applied. Diagnosis Primary Impression: COPD (chronic obstructive pulmonary disease) Qualified Codes: J44.9 - Chronic obstructive pulmonary disease, unspecified Additional Impression: Mucous cyst of finger Med/Other Pt SpecificInfo: Prescription(s) given Scripts Fluticasone-Salmeterol 12 GM Inh (Advair Hfa 12 GM Inh) 115-21 Mcg/Act Aer 2 PUFF INH BID, #1 INHALER 0 Refills Prov: Carmen Carney MD 05/31/17 Albuterol 18 GM Inh (Ventolin Hfa 18 GM Inh) 90 Mcg/Act Aer 2 PUFF INH Q4-6H Y for SHORTNESS OF BREATH, #1 INHALER 0 Refills Prov: Carmen Carney MD 05/31/17 Disposition: 01 DISCHARGE HOME Condition: Stable Carmen Carney MD May 31, 2017 17:13
== END 2017-05-31 18:02 | disposition home or self-care (01) ==
LOC: PHED 16:08
DX: J44.9 Chronic obstructive pulmonary disease, unspecified (principal); L02.512 Cutaneous abscess of left hand; Z72.0 Tobacco use
CPT/HCPCS: 10060; 94640; 94664

== ENCOUNTER 2017-08-03 22:54 | Emergency (ER) | payer MEDICAID ==
[~2017-08-03] VITALS: Ht 182.9 cm; Wt 64.9 kg
[~2017-08-03 22:54] MED LIST changes: +ADVA115A INH; -NORC5TAB PO; +VENTAER INH
[2017-08-03 23:01] VITALS: BP 133/77; PULSE 75; RESP 20; TEMP 97.8; O2SAT 99
[2017-08-03] MEDS ORDERED: predniSONE 20 MG TAB PO ONE (23:15)
[2017-08-03] MEDS ORDERED: ZITHTAB PO (23:20)
[2017-08-03] MEDS ORDERED: NEBULIZER1 MI1 (23:20)
[2017-08-03] MEDS ORDERED: ALBU0.08 NEB (23:20)
[2017-08-03] MEDS ORDERED: PRED20 PO (23:20)
--- NOTE | 2017-08-03 23:20 | PD ---
HPI Chief Complaint: Respiratory Symptoms Time Seen by Provider: 23:07 Travel History International Travel<30 days: No Contact w/Intl Traveler<30days: No Traveled to known affect area: No History of Present Illness HPI The patient is a 62-year-old male who presents to the emergency department for chronic shortness of breath. The patient has a history of COPD, has had chronic shortness of breath for 1 month. The patient was seen earlier this month for multiple complaints, had nebulizers at that time with resolution of his symptoms. The patient was prescribed inhalers, however, was unable to afford the Advair inhaler, stated it cost over $500. He does note shortness of breath with wheezing, worse in the morning, and associated with phlegm. The patient does have a history of tobacco use, continues to smoke, and has a history of laryngeal cancer with radiation therapy. He denies any history of pulmonary embolism or DVT. He denies any chest pain, new cough, fever, chills, or sweats. Symptoms are mild. Patient is requesting nebulizers. PFSH Past Medical History Hx Anticoagulant Therapy: No Cancer: Yes (throat cancer dx apr 2016) Cardiovascular Problems: No Chemotherapy: Yes COPD: Yes Diabetes: No Diminished Hearing: No Endocrine: No Gastrointestinal Disorders: No Immune Disorder: No Implanted Vascular Access Dvce: No Kidney Stones: Yes (1 passed without intervention over 20 years ago) Musculoskeletal: No Neurologic: No Psychiatric: No Reproductive: No Respiratory: Yes (COPD) Radiation Therapy: Yes (RT tx july 2016) ?: Not Past Surgical History Oral Surgery: Yes (tonsillectomy) Tonsillectomy: Yes Other Surgery: Yes Social History Alcohol Use: Yes (occas. mix drinks) Tobacco Use: Yes (1/2 ppd) Substance Use: No Allergies-Medications (Allergen,Severity, Reaction): Coded Allergies: No Known Allergies (Verified Allergy, Unknown, 08/03/17) Reported Meds & Prescriptions Reported Meds & Active Scripts Active Zithromax Z-Blake (Azithromycin) 250 Mg Dspk 250 Mg PO DIRECTED 500 MG (2 tabs) day 1, then 1 tab days 2-5. Nebulizer 1 Mis Mis Ea .XX DIRECTED Use as directed. Albuterol Neb (Albuterol Sulfate) 2.5 Mg/3 Ml Neb 2.5 Mg NEB Q4HR NEB PRN Prednisone 20 Mg Tab 40 Mg PO DAILY Take 40 mg (2 tablets) daily for 5 days Review of Systems Except as stated in HPI: all other systems reviewed are Neg General / Constitutional: No: Fever HENT: No: Lightheadedness Cardiovascular: No: Chest Pain or Discomfort Respiratory: Positive: Cough (Chronic), Shortness of Breath, Wheezing Gastrointestinal: No: Nausea, Vomiting, Abdominal Pain Musculoskeletal: No: Weakness, Edema Neurologic: No: Dizziness Physical Exam Narrative GENERAL: Awake, alert, pleasant 8-year-old male who appears his stated age and is in no acute respiratory distress. SKIN: Focused skin assessment warm/dry. Radiation skin changes noted to the neck. HEAD: Atraumatic. Normocephalic. EYES: No injection or drainage. ENT: No nasal bleeding or discharge. Mucous membranes pink and moist. NECK: Trachea midline. No JVD. CARDIOVASCULAR: Regular rate and rhythm. No murmur appreciated. RESPIRATORY: No accessory muscle use. Tight breath sounds with scattered wheezes. MUSCULOSKELETAL: No obvious deformities. No clubbing. No cyanosis. No edema. NEUROLOGICAL: Awake and alert. No obvious cranial nerve deficits. Motor grossly within normal limits. Normal speech. PSYCHIATRIC: Appropriate mood and affect; insight and judgment normal. Data Data Last Documented VS Vital Signs Date Time Temp Pulse Resp B/P (MAP) Pulse Ox O2 Delivery O2 Flow Rate FiO2 08/03/17 23:46 20 99 Room Air 08/03/17 23:01 97.8 75 133/77 (95) Orders Orders Ecg Monitoring (08/03/17 23:14) Oximetry (08/03/17 23:14) Prednisone (Deltasone) (08/03/17 23:15) Albuterol-Ipratropium Neb (Duoneb Neb) (08/03/17 23:15) [facility] Medical Decision Making Medical Screen Exam Complete: Yes Emergency Medical Condition: Yes Medical Record Reviewed: Yes Differential Diagnosis Differential diagnosis includes COPD exacerbation, bronchitis, pneumonia, congestive heart failure, pleural effusion, pulmonary edema, acute coronary syndrome, pulmonary embolism. Narrative Course The patient's vitals are stable, he states he needs a "breathing treatment ". The patient states he does not have a nebulizer at home and was unable to afford the Advair. He does complain of wheezing, denies any acute change to his cough. Symptoms are mild. He denies any associated chest pain or lower extremity edema. Therefore, the patient was administered prednisone 60 mg orally and was administered 2 duo nebs. The patient was then reassessed. The patient's symptoms have significantly improved. He is stable for outpatient follow-up. He is advised to stop smoking. Diagnosis Primary Impression: COPD exacerbation Patient Instructions: General Instructions Additional Instructions: Medications as directed. Follow-up with your primary physician. Return if symptoms worsen or progress. Stop smoking. Med/Other Pt SpecificInfo: Prescription(s) given Scripts Albuterol 8.5 GM Inh (Proair Hfa 8.5 GM Inh) 90 Mcg/Act Aer 2 PUFF INH Q4-6H Y for SHORTNESS OF BREATH, #1 INHALER 0 Refills 108 mcg/actuation Prov: Tor Frye MD 08/03/17 Azithromycin (Zithromax Z-Blake) 250 Mg Dspk 250 MG PO DIRECTED for Infection, #1 DSPK 0 Refills 500 MG (2 tabs) day 1, then 1 tab days 2-5. Prov: Tor Frye MD 08/03/17 Nebulizer (Nebulizer) 1 Mis Mis EA .XX DIRECTED for Breathing Treatment, #1 0 Refills Use as directed. Prov: Tor Frye MD 08/03/17 Albuterol Neb (Albuterol Neb) 2.5 Mg/3 Ml Neb 2.5 MG NEB Q4HR NEB Y for SHORTNESS OF BREATH, #60 NEBULE 0 Refills Prov: Tor Frye MD 08/03/17 Prednisone (Prednisone) 20 Mg Tab 40 MG PO DAILY, #10 TAB 0 Refills Take 40 mg (2 tablets) daily for 5 days Prov: Tor Frye MD 08/03/17 Disposition: 01 DISCHARGE HOME Condition: Stable Tor Frye MD August 03, 2017 23:20
[2017-08-03] MEDS: RESP: ALBUTEROL 2.5 MG/IPRATROPIUM 0.5 MG NEB (SCH) INH ×2 (23:22→23:23)
[2017-08-03 23:46] VITALS: RESP 20; O2SAT 99
[2017-08-03] MEDS ORDERED: ALBUAER3 INH (23:55)
== END 2017-08-04 00:15 | disposition home or self-care (01) ==
LOC: PHED 22:54
DX: J44.1 Chronic obstructive pulmonary disease with (acute) exacerbation (principal); C14.0 Malignant neoplasm of pharynx, unspecified; F17.210 Nicotine dependence, cigarettes, uncomplicated
CPT/HCPCS: 94640; 94664; 99283; J7512